=== PATIENT | female | born 1965 | race Caucasian/White ===

== ENCOUNTER 2023-11-29 21:49 | Emergency (ER) | payer OTHER ==
--- OUTSIDE RECORDS SUMMARY | 2023-11-29 21:57 | XMS REPORT | Continuity of Care Document ---
Author Name Unknown Address [address] [place] [address] [facility] Address [address] [place] [address] Care Team Providers Care Natural Science Manager Name Role Phone PCP, PATIENT DOES NOT HAVE A Primary Care Physic kael Unavailable MIKAYLA FLOREZ Attending Clinician Unavailable Cristian Laguna Attending Clinician Unavailable DARBY BROTHERS Attending Clinician UnavailDARBY Buckley Attending Clinician UnavailCLARIBEL Oliveira Attending Clinician Unavailable CLARIBEL BLACK Attending Clinician Unavailable MARTHA DANGLEO Attending Clinician Unavailable Doctor Unassigned, [place] Attending Clinician SAMUEL Merlos Attending Clinician Unavailable Madeline Simons MD Attending Clinician [phone] MADELINE SIMONS Attending Clinician Unavailable Nurse, [facility] Attending Clinician Un available Unknown, Attending Attending Clinician UnavailYuniel Huerta OD Attending Clinician [phone] UNKNOWN, ATTENDING Attending Clinician Unavailab Devorah Chunie Attending Clinician [phone] Darby Brothers MD Attending Clinician [phone] Lab, Ang - Db Attending Clinician Unavailable LUDMILA BEVERLY Attending Clinician Unavailab rosa Beverly VICE PRESIDENT RISK MANAGEMENT, Ludmila Sow Attending Clinician [phone] Ebrahim VICE PRESIDENT RISK MANAGEMENT, Rania Attending Clinician [phone] JOSE GLEASON Attending Clinician Unavailable Jose Gleason MD Attending Clinician [phone] Pako VICE PRESIDENT RISK MANAGEMENT, See Attending Clinician [phone] SEE MIN Attending Clinician Unavailable YUNIEL CALDERON Attending Clinician UnavailParker Graves Attending Clinician Unavailable EDDOC, GENERIC FOR ED Attending Clinician Unava ilable CARLOS GOMES Attending Clinician Unavailable Rosey MAZA, Carlos Attending Clinician [phone] BOB MIN Attending Clinician Unavailable Mikayla Florez MD Attending Clinician [phone] BACILIO BENTLEY Attending Clinician Unavail able Caitlin Cuevas RN Attending Clinician Unavail able YUNIEL THURMAN Attending Clinician Unavail able Armando Attending Clinician Unavaila NEO Bosch Attending Clinician Unavailrodríguez Pitt RN, Pia Terrazas Attending Clinician Unavailable Jenaro Padilla MD Attending Clinician [phone] Breana Calhoun RN Attending Clinician Unava ilable LUIS COLON Attending Clinician Unavailable Jase Wayne Attending Clinician [phone] Bud CAMPOS, Neo Hwang Attending Clinician Unavail able JOSE SANCHEZ Attending Clinician Unavailable JOSE SANCHEZ Attending Clinician Unavailable Rc Peng DO Attending Clinician [phone] Calvin Nova MD Attending Clinician [phone] Edwin Mathews Attending Clinician Unavailable Porfirio Attending Clinician Unavailable Jovana Weber Attending Clinician Unavailable AISHA CHÁVEZ Attending Clinician Unavailable Jayden Knight MD Attending Clinician [phone] Aisha Chávez MD A Attending Clinician [phone] FRANCISCO GAMING Attending Clinician Unavailable JOSE BACK Attending Clinician Unavailable Francisco Gaming PA-C Attending Clinician [phone] [facility] Attending Clinician [phone] Vtc-Lab Attending Clinician Unavailable Abdelrahman Madden MD Attending Clinician Unavail able Marianne MAZA, Samuel King Attending Clinician [phone] SAMUEL GUZMÁN Attending Clinician Unavaila ble Only, Lcc Test Attending Clinician Unavailable Navdeep MAZA, Jose Attending Clinician [phone] Guerrero MAZA, Ambika Attending Clinician [phone] Julianna MAZA, Giovanni Osullivan Attending Clinician [phone] Yareli Haynes RN Attending Clinician Unavailable GINI WILLARD Attending Clinician Unavailable GLENNY ARREOLA Attending Clinician Unavail able MIKAYLA FLOREZ Admitting Clinician Unavailable Jovana Weber Admitting Clinician Unavailable Armando Admitting Clinician Unavaila CARLOS Moura Admitting Clinician Unavailable Rosey MAZA, Carlos Admitting Clinician [phone] CALVIN NOVA Admitting Clinician Unavailable Porfirio Admitting Clinician Unavailable JAYDEN KNIGHT Admitting Clinician Unavailable Payers Payer Name Policy Type Policy Number Effective Date Expirati on Date Source HIM BCBS BLUE ADVANTAGE O [id number] 2023 00:00:00 [facility] EPO [id number] 2023 00:00:00 [place] [id number] 2023 00:00:[place] [id number] 2022 00:00:00 2024 00:00:00 CIG[employer] - [place] (EPO) [id number] 2022 00:00:00 2023 00:00:00 [place] [id number] AETNA [id number] 2021 00:00:00 AETNA - CHOICE (POS II) [id number] 2021 00:00:00 Problems Condition Name Condition Details Condition Category Status Onset Date Resolution Date Last Treatment Date Treating Clinician Comments Source Costochond ritis, acute Costochond ritis, acute Disease Active 6- 00:00: 00 [facility] Chronic right shoulder pain Chronic right shoulder pain Disease Active 09-09 00:00: 00 [facility] Raccoon bite, subsequent encounter Raccoon bite, subsequent encounter Disease Active 09-09 00:00: 00 [facility] Encounter for repeat administra tion of rabies vaccinatio n Encounter for repeat administra tion of rabies vaccinatio n Disease Active 6 00:00: 00 [facility] Flank pain Flank pain Disease Active 4-03 00:00: 00 [facility] Acute abdominal pain Acute abdominal pain Disease Active -17 00:00: 00 [facility] HLD (hyperlipi demia) HLD (hyperlipi demia) Disease Active -17 00:00: 00 [facility] Anxiety Anxiety Disease Active 3-17 00:00: 00 [facility] Pyelonephr itis Pyelonephr itis Disease Active 17 00:00: 00 [facility] GERD (gastroeso phageal reflux disease) GERD (gastroeso phageal reflux disease) Disease Active -17 00:00: 00 [facility] KRISTOPHER (acute kidney injury) KRISTOPHER (acute kidney injury) Disease Active -17 00:00: 00 [facility] Nephrolith iasis Nephrolith iasis Disease Active 3-17 00:00: 00 [facility] Type 2 diabetes mellitus Type 2 diabetes mellitus Disease Active 3-17 00:00: 00 [facility] HTN (hypertens ion) HTN (hypertens ion) Disease Active 05-31 00:00: 00 [facility] Leukocytos is Leukocytos is Disease Active 05-31 00:00: 00 [facility] Right ureteral stone Right ureteral stone Disease Active 05-31 00:00: 00 [facility] KRISTOPHER (acute kidney injury) KRISTOPHER (acute kidney injury) Disease Active 05-31 00:00: 00 [facility] History of alcoholism History of Alcoholism Problem Active 05-03 00:00: 00 [facility] Mehta's esophagus Mehta's Esophagus Problem Active 2022-03 00:00: 00 [facility] History of malignant neoplasm of colon History of Malignant Neoplasm of Colon Problem Active 2022-03 00:00: 00 [facility] Tobacco user Tobacco User Problem Active 2022-03 00:00: 00 [facility] Multiple joint pain Multiple Joint Pain Problem Active 04-25 00:00: 00 [facility] Diabetes mellitus Diabetes Mellitus Problem Active 03-22 00:00: 00 [facility] Hyperlipid emia Hyperlipid emia Problem Active 03-22 00:00: 00 [facility] Anxiety Anxiety Problem Active 03-22 00:00: 00 [facility] Essential hypertensi on Essential Hypertensi on Problem Active 03-22 00:00: 00 [facility] Dysphagia, pharyngoes ophageal phase Dysphagia, pharyngoes ophageal phase Disease Active 12-04 00:00: 00 Overview: Formattin g of this note might be different from the original. Added automatic ally from request for surgery [id number] [facility] Globus sensation Globus sensation Disease Active 12-04 00:00: 00 Overview: Formattin g of this note might be different from the original. Added automatic ally from request for surgery [id number] [facility] Thrush Thrush Disease Active 12-04 00:00: 00 Overview: Formattin g of this note might be different from the original. Added automatic ally from request for surgery [id number] [facility] Rectal cancer Rectal cancer Disease Active 06-13 00:00: 00 Overview: Formattin g of this note might be different from the original. Added automatic ally from request for surgery [id number] [facility] History of colon cancer History of colon cancer Disease Active 06-13 00:00: 00 Overview: Formattin g of this note might be different from the original. Added automatic ally from request for surgery [id number] [facility] Trigger middle finger of left hand Trigger middle finger of left hand Disease Active 305 00:00: 00 [facility] GERD with esophagiti s GERD with esophagiti s Disease Recurre nce 103 00:00: 00 [facility] Tobacco dependence Tobacco dependence Disease Recurre nce 406 00:00: 00 [facility] Vomiting Vomiting Disease Active 04-29 00:00: 00 [facility] Elevated LFTs Elevated LFTs Disease Active 09-12 00:00: 00 [facility] Fatigue Fatigue Disease Active 09-12 00:00: 00 [facility] SBO (small bowel obstructio n) SBO (small bowel obstructio n) Disease Active 09-12 00:00: 00 [facility] Anemia Anemia Disease Active 09-12 00:00: 00 [facility] Nasal congestion Nasal congestion Disease Active 09-12 00:00: 00 [facility] Colon cancer Colon cancer Disease Recurre nce 09-12 00:00: 00 [facility] Preseptal cellulitis of right lower eyelid Preseptal cellulitis of right lower eyelid Disease Resolve d 2017-03 117 00:00: 00 2023-06-19 00:00:00 2023-06-19 14:56:12 [facility] COPD (chronic obstructiv e pulmonary disease) COPD (chronic obstructiv e pulmonary disease) Disease Resolve d 2 00:00: 00 2018-01-06 00:00:00 2018-01-06 14:34:23 [facility] Allergies, Adverse Reactions, Alerts Allergy Name Allergy Type Status Severity Reaction(s) Onset Date Inactive Date Treating Clinician Comments Source hydrocod one bit DA Active WI ITCHING, RASH 08-04 00:00: 00 [facility] Sulfa (Sulfona mide Antibiot ics) DA Active WI CHILDHOOD REACTION 08-04 00:00: 00 [facility] SULFA (SULFONA MIDE ANTIBIOT ICS) Drug Class Active N/V 05-13 00:00: 00 [facility] HYDROCOD ONE-ACET AMINOPHE N DRUG Active Med ITCHING 05-13 00:00: 00 [facility] Sulfa (Sulfona mide Antibiot ics) Propensi ty to adverse reaction s Active Nausea and/or Vomiting 05-13 00:00: 00 [facility] Sulfa (Sulfona mide Antibiot ics) Propensi ty to adverse reaction s Active Nausea and/or Vomiting 05-13 00:00: 00 [facility] Hydrocod one-Acet aminophe n Propensi ty to adverse reaction s Active Itching 05-13 00:00: 00 [facility] Hydrocod one-Acet aminophe n Drug Allergy Active Rash 05-13 00:00: 00 [facility] Sulfa (Sulfona mide Antibiot ics) DA Active WI CHILDHOOD REACTION 11-07 00:00: 00 [facility] hydrocod one bit DA Active WI ITCHING, RASH 11-07 00:00: 00 [facility] VICODIN Allergy to substanc e Active Mild to moderate [facility] SULFA (SULFONA MIDE ANTIBIOT ICS) Allergy to substanc e Active [facility] Family History Family Member Diagnosis Comments Start Date Stop Date Sourc e Natural [facility] St[facility] Maternal grandfather Cancer [facility] Natural [facility] Hy[facility] Natural sister Uterine Cancer [facility] Social History Social Habit Start Date Stop Date Quantity Comments Source [facility] History of tobacco use Cigarette Smoker [facility] Alcoholic beverage intake 2023-09-09 00:00:00 2023-09-09 00:00:00 Current non-drinker of alcohol (finding) [facility] Cigarettes smoked current (pack per day) - Reported 2023-09-05 00:00:00 2023-09-05 00:00:00 [facility] Cigarette pack-years 2023-09-05 00:00:00 2023-09-05 00:00:00 [facility] Tobacco use and exposure 2023-09-05 00:00:00 2023-09-05 00:00:00 Smokeless tobacco non-user [facility] History of Social function 2023-06-12 00:00:00 2023-06-12 00:00:00 [facility] Alcohol intake 2023-06-03 00:00:00 2023-06-03 00:00:00 Current non-drinker of alcohol (finding) [facility] Exposure to SARS-CoV-2 (event) 2021-09-16 00:00:00 2021-09-26 22:48:00 Not sure [facility] Sex assigned at 1965 00:00:00 1965 00:00:00 [facility] Smoking Status Start Date Stop Date Source Heavy Tobacco Smoker [facility] Smokes tobacco daily 2023-09-05 00:00:00 [facility] Medications Ordered Medication Name Filled Medication Name Start Date Stop Date Current Medication? Ordering Clinician Indication Dosage Frequency Signature (SIG) Comments Components Source triamcinolo ne acetonide (KENALOG) injection 16 mg 09-10 14:45: 00 09-10 13:52 :00 No [id number] 16mg 16 mg, Intramuscu lar, ONCE, 1 dose, On Nalini 09/11/23 at 0945, Routine [facility] meloxicam 15 mg tablet 09-09 00:00: 00 Yes [id number] 15mg Take 1 tablet by mouth in the morning. [facility] Blood-Gluco se Meter (GLUCOCARD SHINE METER) [facility] 09-09 00:00: 00 Yes [id number] 00 Use as directed [facility] lancets (TECHLITE LANCETS) 28 gauge [facility] 09-09 00:00: 00 Yes [id number] 00 Check FASTING BLOOD SUGAR DAILY [facility] blood sugar diagnostic (GLUCOCARD SHINE TEST STRIPS) strip 09-09 00:00: 00 Yes [id number] 00 Check fasting BLOOD SUGAR DAILY [facility] levothyroxi ne 75 mcg tablet 09-09 00:00: 00 Yes [id number] 75ug Take 1 tablet by mouth every morning. [facility] mupirocin 2 % ointment 09-04 00:00: 00 Yes [id number] Apply to area(s) 3 (three) times daily. [facility] rabies immune globulin (PF) (HYPERRAB (PF)) injection 1,044 Units 09-02 01:30: 00 09-02 01:21 :00 No 20U/kg 1,044 Units (20 Units/kg ?52.2 kg), Intramuscu lar, ONCE, 1 dose, On Fri09/02/23 at 2030, Routine [facility] ketorolac 10 mg tablet 09-01 00:00: 00 Yes [id number] 10mg Take 1 tablet by mouth every 6 (six) hours as needed for Pain (scale 4-6) or Pain (scale 7-10). [facility] amoxicillin -clavulanat e 875-125 mg per tablet 09-01 00:00: 00 09-12 04:59 :00 Yes [id number] 1{tbl} Take 1 tablet by mouth every 12 (twelve) hours for 10 days. [facility] mupirocin 2 % cream 09-01 00:00: 00 09-04 00:00 :00 No [id number] Apply to area(s) 3 (three) times daily. [facility] traMADoL 50 mg tablet 6-10 00:00: 00 08-27 04:59 :00 No [id number] 50mg Take 1 tablet by mouth every 8 (eight) hours as needed for Pain (scale 4-6) for up to 2 days. Indication s: acute pain [facility] simethicone 80 mg chewable tablet 06-18 10:24: 48 Yes Take 80 mg as needed by oral route. [facility] ondansetron 4 mg disintegrat ing tablet 06-18 10:24: 48 Yes ondansetro n 4 mg disintegra ting tablet [facility] calcium carbonate (CALCIUM 500 ORAL) 06-18 10:19: 58 Yes Take by mouth. [facility] gabapentin 300 mg capsule 06-16 00:00: 00 07-29 04:59 :00 No [id number] 300mg Take 1 capsule by mouth in the morning and 1 capsule at noon and 1 capsule in the evening. Do all this for 42 days. [facility] lactated ringers IV infusion 1,000 mL 06-11 23:15: 00 Yes 1000mL at 75 mL/hr, 1,000 mL, IV Infusion, CONTINUOUS , Starting on Nalini 06/12/23 at 1815, Until Discontinu ed, Routine, PACU [facility] morpHINE (2 mg/mL) injection 2 mg 06-11 23:06: 39 Yes 2mg 2 mg, Slow IV Push, Q5MIN PRN, 3 doses, Starting on Nalini 06/12/23 at 1806, Until Discontinu ed, Routine, Pain (scale 4-6), PACU [facility] morpHINE (4 mg/mL) injection 4 mg 06-11 23:06: 39 Yes 4mg 4 mg, Slow IV Push, [id number], 3 doses, Starting on Nalini 06/12/23 at 1806, Until Discontinu ed, Routine, Pain (scale 7-10), PACU [facility] hydralAZINE (APRESOLINE ) injection 10 mg 06-11 23:06: 39 Yes 10mg 10 mg, Slow IV Push, Q20MIN PRN, 2 doses, Starting on Nalini 06/12/23 at 1806, Until Discontinu ed, Routine, Other, SBP > 170mmHg or DBP > 90mmHg, PACU [facility] labetaloL (NORMODYNE) injection 10 mg 06-11 23:06: 39 Yes 10mg 10 mg, Slow IV Push, Q15MIN PRN, 2 doses, Starting on Nalini 06/12/23 at 1806, Until Discontinu ed, Routine, SBP greater than 170mmHg or DBP greater than 90mmHg., PACU [facility] FENTanyl PF (SUBLIMAZE (PF)) injection 50 mcg 06-11 23:06: 39 Yes 50ug 50 mcg, Slow IV Push, Q5MIN PRN, 4 doses, Starting on Nalini 06/12/23 at 1806, Until Discontinu ed, Routine, Pain (scale 7-10), PACU [facility] FENTanyl PF (SUBLIMAZE (PF)) injection 25 mcg 06-11 23:06: 39 Yes 25ug 25 mcg, Slow IV Push, Q5MIN PRN, 4 doses, Starting on Nalini 06/12/23 at 1806, Until Discontinu ed, Routine, Pain (scale 4-6), PACU [facility] proMETHazin e (PHENERGAN) 6.25 mg in NaCl 0.9% (NS) 50 mL piggyback 06-11 23:06: 39 Yes 6.25mg 6.25 mg, IV Piggyback, at 200 mL/hr Administer over 15 Minutes, Q15MIN PRN, 4 doses, Starting on Nalini 06/12/23 at 1806, Until Discontinu ed, Routine, Nausea and Vomiting (N/V), If unresponsi ve to first choice antiemetic , PACU [facility] ondansetron (ZOFRAN (PF)) injection 4 mg 06-11 23:06: 39 Yes 4mg 4 mg, Slow IV Push, PRN, 1 dose, Starting on Nalini 06/12/23 at 1806, Until Discontinu ed, Routine, Nausea and Vomiting (N/V), PACU [facility] sodium chloride 0.9 % irrigation solution 06-11 22:48: 00 06-11 23:14 :06 No PRN, Starting on Nalini 06/12/23 at 1748, Until Nalini 06/12/23 at 1814, Intra-op [facility] iohexoL (OMNIPAQUE 300-50 mL)) injection 06-11 21:58: 00 06-11 23:14 :06 No PRN, Starting on Nalini 06/12/23 at 1658, Until Nalini 06/12/23 at 1814, Routine, Intra-op [facility] morpHINE (4 mg/mL) injection 2 mg 06-11 18:46: 12 06-11 23:14 :06 No 2mg 2 mg, Slow IV Push, Q15MIN PRN, 2 doses, Starting on Nalini 06/12/23 at 1346, Until Nalini 06/12/23 at 1814, Routine, Pain (scale 4-6), DSU Pre-op [facility] ketorolac (TORADOL) injection 30 mg 06-11 18:45: 00 06-11 19:08 :00 No 30mg 30 mg, Slow IV Push, ONCE, 1 dose, On Nalini 06/12/23 at 1400, Routine, DSU Pre-op [facility] lactated ringers IV infusion 1,000 mL 06-11 18:15: 00 06-11 18:33 :00 No 1000mL at 42 mL/hr, 1,000 mL, IV Infusion, ONCE, 1 dose, On Nalini 06/12/23 at 1315, Routine, DSU Pre-op [facility] tamsulosin (FLOMAX) 0.4 mg 24 hr capsule 06-11 00:00: 00 Yes [id number] .4mg Take 1 capsule by mouth in the morning. [facility] oxyBUTYnin chloride 5 mg tablet 06-11 00:00: 00 Yes [id number] 5mg Take 1 tablet by mouth in the morning and 1 tablet in the evening. [facility] cephALEXin 250 mg capsule 06-11 00:00: 00 06-17 04:59 :00 No [id number] 500mg Take 2 capsules by mouth every 12 (twelve) hours for 5 days. [facility] ketorolac (TORADOL) injection 15 mg 06-04 03:00: 00 06-04 03:06 :00 No 15mg 15 mg, Slow IV Push, ONCE, 1 dose, On Fri06/04/23 at 2200, JHOANA [facility] ondansetron (ZOFRAN (PF)) injection 4 mg 06-04 03:00: 00 06-04 03:05 :00 No 4mg 4 mg, Slow IV Push, ONCE, 1 dose, On Fri06/04/23 at 2200, JHOANA [facility] morpHINE (2 mg/mL) injection 2 mg 06-04 03:00: 00 06-04 03:07 :00 No 2mg 2 mg, Slow IV Push, ONCE, 1 dose, On Fri06/04/23 at 2200, STAT [facility] ibuprofen 800 mg tablet 06-03 00:00: 00 Yes [id number] 800mg Take 1 tablet by mouth every 6 (six) hours as needed for Pain (scale 4-6) for up to 30 doses. [facility] fluconazole 200 mg tablet 06-03 00:00: 00 06-18 00:00 :00 No [id number] 400mg Take 2 tablets by mouth in the morning. [facility] ciprofloxac in HCl 500 mg tablet 06-03 00:00: 00 06-11 00:00 :00 No [id number] 500mg Take 1 tablet by mouth in the morning and 1 tablet in the evening. [facility] methocarbam oL 500 mg tablet 06-02 00:00: 00 Yes [id number] 500mg Take 1 tablet by mouth 4 (four) times daily. [facility] tamsulosin 0.4 mg 24 hr capsule 06-02 00:00: 00 06-11 00:00 :00 No [id number] .4mg Take 1 capsule by mouth at bedtime. [facility] fluconazole (DIFLUCAN) tablet 400 mg 06-01 22:15: 00 06-08 13:59 :00 No 400mg 400 mg, Oral, DAILY, 7 doses, First dose on Fri06/02/23 at 1715, Last dose on Fri06/08/23 at 0900, JHOANA
Re ason for Anti-Infec tive: Documented Infection< br>Documen harvey Infection Site: Urine
D uration of Therapy: 7 days [facility] lactated ringers IV infusion 1,000 mL 06-01 18:30: 00 Yes 1000mL at 75 mL/hr, 1,000 mL, IV Infusion, CONTINUOUS , Starting on Fri06/02/23 at 1330, Until Discontinu ed, Routine, PACU [facility] lidocaine (XYLOCAINE) 2 % jelly URO-JET 06-01 17:56: 00 06-01 18:25 :04 No PRN, Starting on Fri06/02/23 at 1256, Until Fri06/02/23 at 1325, Routine, Intra-op [facility] sodium chloride 0.9 % irrigation solution 06-01 17:50: 00 Yes PRN, Starting on Fri06/02/23 at 1250, Until Discontinu ed, Intra-op [facility] iopamidol (ISOVUE 370-500 mL) injection 06-01 17:50: 00 06-01 18:25 :04 No PRN, Starting on Fri06/02/23 at 1250, Until Fri06/02/23 at 1325, Routine, Intra-op [facility] pantoprazol e (PROTONIX) EC tablet 40 mg 06-01 14:00: 00 Yes 40mg 40 mg, Oral, DAILY, First dose on Fri06/02/23 at 0900, Until Discontinu ed, Routine [facility] cyclobenzap rine (FLEXERIL) tablet 10 mg 06-01 08:00: 00 06-01 07:07 :00 No 10mg 10 mg, Oral, ONCE, 1 dose, On Fri06/02/23 at 0300, Routine [facility] nicotine (NICODERM) 14 mg/24 hr patch 1 Patch 06-01 04:15: 00 Yes 1{patch } 1 Patch, Topical, Administer over 24 Hours, Q24H, First dose on Fri06/01/23 at 2315, Until Discontinu ed, Routine [facility] tamsulosin (FLOMAX) capsule 0.4 mg 06-01 02:00: 00 Yes .4mg 0.4 mg, Oral, QHS, First dose on Fri06/01/23 at 2100, Until Discontinu ed, Routine [facility] atorvastati n (LIPITOR) tablet 10 mg 06-01 02:00: 00 Yes 10mg 10 mg, Oral, QHS, First dose on Fri06/01/23 at 2100, Until Discontinu ed, [facility] (ROBAXIN) tablet 500 mg 06-01 01:00: 00 Yes 500mg 500 mg, Oral, QID, First dose on Fri06/01/23 at 2000, Until Discontinu ed, [facility] buPROPion SR (WELLBUTRIN SR) tablet 150 mg 06-01 01:00: 00 Yes 150mg 150 mg, Oral, BID, First dose on Fri06/01/23 at 2000, Until Discontinu ed, Routine [facility] ([facility]OL[facility] tablet 650 mg 05-31 23:00: 00 Yes 650mg 650 mg, Oral, Q6H, First dose (after last modificati on) on Fri06/01/23 at 1800, Until Discontinu ed, Routine [facility] lactated ringers [facility] 1,000 mL 05-31 22:15: 00 06-01 21:59 :00 No 1000mL at 150 mL/hr, 1,000 mL, IV Infusion, CONTINUOUS , Starting on Fri06/01/23 at 1715, Until 06/02/23 at 1659, Routine [facility] Sliding Scale Insulin - Lispro (HumaLOG) 05-31 22:00: 00 Yes Subcutaneo us, TID MEALS+HS, First dose on Fri06/01/23 at 1700, Until Discontinu ed, Routine [facility] enoxaparin (LOVENOX) injection 40 mg 05-31 22:00: 00 Yes 40mg 40 mg, Subcutaneo us, DAILY, First dose on Fri06/01/23 at 1700, Until Discontinu ed, Routine [facility] morpHINE (4 mg/mL) injection 4 mg 05-31 21:48: 25 Yes 4mg 4 mg, Slow IV Push, Q4HPRN, Starting on Fri06/01/23 at 1648, Until Discontinu ed, Routine, Pain (scale 7-10) [facility] glucagon (GLUCAGEN DIAGNOSTIC KIT) injection 1 mg 05-31 21:46: 43 Yes 1mg 1 mg, Intramuscu lar, PRN, Starting on Fri06/01/23 at 1646, Until Discontinu ed, JHOANA, Blood Glucose < or = 70 mg/dL and patient is NPO, unable to swallow or has mental changes. [facility] dextrose 50 % in water (D50W) injection 25 mL 05-31 21:46: 43 Yes 25mL 25 mL, Slow IV Push, PRN, Starting on Fri06/01/23 at 1646, Until Discontinu ed, JHOANA, Blood Glucose < or = 70 mg/dL and patient is NPO, unable to swallow or has mental status changes. [facility] guaiFENesin (FENESIN IR) tablet 200 mg 05-31 21:46: 20 Yes 200mg 200 mg, Oral, Q4HPRN, Starting on Fri06/01/23 at 1646, Until Discontinu ed, Routine, Cough [facility] ondansetron (ZOFRAN (PF)) injection 4 mg 05-31 21:46: 20 Yes 4mg 4 mg, Slow IV Push, Q6HPRN, Starting on Fri06/01/23 at 1646, Until Discontinu ed, Routine, Nausea and Vomiting (N/V) [facility] sennosides- docusate sodium (SENOKOT-S) 8.6-50 mg per tablet 1 tablet 05-31 21:46: 20 Yes 1{tbl} 1 tablet, Oral, QDAILYPRN, Starting on Fri06/01/23 at 1646, Until Discontinu ed, Routine, Constipati on [facility] HYDROcodone -acetaminop hen (NORCO 5) 5-325 mg tablet 1 tablet 05-31 21:46: 20 06-02 21:45 :20 No 1{tbl} 1 tablet, Oral, Q6HPRN, Starting on Fri06/01/23 at 1646, Until Fri06/03/23 at 1645, Routine, Pain (scale 4-6) [facility] gabapentin (NEURONTIN) capsule 300 mg 05-31 21:45: 53 Yes 300mg 300 mg, Oral, QHSPRN, Starting on Fri06/01/23 at 1645, Until Discontinu ed, Routine, neuropathi c pain [facility] cefTRIAXone (ROCEPHIN) 1,000 mg in NaCl 0.9% (NS) 100 mL MINI-BAG 05-31 18:30: 00 05-31 19:08 :00 No 1000mg 1,000 mg, IV Piggyback, ONCE, 1 dose, On Fri06/01/23 at 1330, Administer over 30 Minutes, 100 mL
Reas on for Anti-Infec tive: Documented Infection< br>Documen harvey Infection Site: Urine
D uration of Therapy: Once (ED) [facility] ketorolac (TORADOL) injection 15 mg 05-31 17:30: 00 05-31 16:34 :00 No 15mg 15 mg, Slow IV Push, ONCE, 1 dose, On Fri06/01/23 at 1230, JHOANA [facility] NaCl 0.9% (NS) bolus infusion 1,000 mL 05-31 17:15: 00 05-31 19:08 :00 No 1000mL at 999 mL/hr, 1,000 mL, IV Infusion, ONCE, 1 dose, On Fri06/01/23 at 1215, JHOANA [facility] ondansetron (ZOFRAN (PF)) injection 4 mg 05-31 16:30: 00 05-31 16:34 :00 No 4mg 4 mg, Slow IV Push, ONCE, 1 dose, On Fri06/01/23 at 1130, JHOANA [facility] HYDROcodone -acetaminop hen 5-325 mg tablet 3-15 00:00: 00 Yes [facility] ketorolac 10 mg tablet 3-12 00:00: 00 Yes [facility] traMADoL 50 mg tablet 2-16 00:00: 00 Yes 1 po twice daily for severe pain. [facility] atorvastati n 40 mg tablet 2022-03 00:00: 00 Yes 40mg Take 1 tablet by mouth at bedtime. [facility] cephALEXin (KEFLEX) capsule 500 mg 09-27 13:00: 00 Yes 500mg 500 mg, Oral, QID, First dose on Fri09/27/21 at 0800, Until Discontinu ed, JHOANA
Re ason for Anti-Infec tive: Documented Infection< br>Documen harvey Infection Site: Urine
D uration of Therapy: Other (see Comments) [facility] iopamidol (ISOVUE 370-500 mL) injection 100 mL 09-27 07:15: 00 09-27 05:57 :00 No [id number] 100mL 100 mL, Intravenou s, ONCE, 1 dose, On Fri09/27/21 at 0215, Routine [facility] NaCl 0.9% (NS) bolus infusion 1,000 mL 09-27 06:45: 00 09-27 14:48 :00 No 1000mL at 999 mL/hr, 1,000 mL, IV Infusion, ONCE, 1 dose, On Fri09/27/21 at 0145, [facility] ondansetron (ZOFRAN (PF)) injection 4 mg 09-27 06:45: 00 09-27 06:21 :00 No 4mg 4 mg, Slow IV Push, ONCE, 1 dose, On Fri09/27/21 at 0145, [facility] ketorolac (TORADOL) injection 15 mg 09-27 05:45: 00 09-27 06:21 :00 No 15mg 15 mg, Slow IV Push, ONCE, 1 dose, On Fri09/27/21 at 0045, [facility] cefTRIAXone (ROCEPHIN) 1,000 mg in NaCl 0.9% (NS) 50 mL MINI-BAG 09-27 05:30: 00 09-27 08:24 :00 No 1000mg 1,000 mg, IV Piggyback, ONCE, 1 dose, On Nalini 09/27/21 at 0030, Administer over 30 Minutes, 50 mL
Reas on for Anti-Infec tive: Documented Infection< br>Documen harvey Infection Site: Urine
D uration of Therapy: Other (see Comments) [facility] diazePAM (VALIUM) tablet 5 mg 09-27 04:15: 00 09-27 04:46 :00 No 5mg 5 mg, Oral, ONCE, 1 dose, On Fri09/26/21 at 2315, [facility] glipiZIDE 10 mg tablet 09-27 00:00: 00 Yes [id number] 10mg Take 1 tablet by mouth in the morning. [facility] cefdinir 300 mg capsule 09-27 00:00: 00 06-11 00:00 :00 No [id number] 300mg Take 1 capsule by mouth in the morning and 1 capsule in the evening. [facility] atorvastati n 10 mg tablet 08-07 00:00: 00 06-18 00:00 :00 No [id number] 10mg Take 1 tablet by mouth at bedtime. [facility] atorvastati n 10 mg tablet 2020-03 00:00: 00 Yes [id number] 10mg Take 1 tablet by mouth at bedtime. [facility] gabapentin 300 mg capsule 2020-03 00:00: 00 06-11 00:00 :00 No [id number] 300mg Take 1 capsule by mouth at bedtime as needed. [facility] glipiZIDE XL 5 mg 24 hr tablet 2020-03 00:00: 00 06-18 00:00 :00 No [id number] 5mg Take 1 tablet by mouth daily with breakfast. [facility] BUPROPION SR 150 mg SR tablet 12-11 00:00: 00 06-11 00:00 :00 No [id number] TAKE 1 TABLET BY MOUTH TWICE A DAY [facility] pantoprazol e 40 mg EC tablet 12-06 00:00: 00 06-11 00:00 :00 No [id number] 40mg Take 1 tablet by mouth daily. [facility] metFORMIN 1,000 mg tablet 12-04 00:00: 00 Yes [id number] 1000mg Take 1 tablet by mouth 2 (two) times daily with meals. [facility] lisinopriL 5 mg tablet 11-29 00:00: 00 Yes [id number] 5mg Take 1 tablet by mouth daily. [facility] blood sugar diagnostic (ONETOUCH ULTRA TEST) strip 11-23 00:00: 00 Yes Use to test glucose once a day E11.9 [facility] lancets (ONETOUCH DELICA LANCETS) 30 gauge Misc 11-23 00:00: 00 Yes Use to test glucose once a day E11.9 [facility] blood sugar diagnostic (ONETOUCH ULTRA TEST) strip 11-23 00:00: 00 Yes Use to test glucose once a day E11.9 [facility] albuterol 90 mcg/actuati on inhaler 11-16 00:00: 00 06-11 00:00 :00 No [id number] 2{puff} Inhale 2 Puffs every 4 (four) hours as needed for Wheezing or Shortness of Breath. [facility] acetaminoph en (TYLENOL EXTRA STRENGTH) 500 mg tablet 11-16 00:00: 00 06-11 00:00 :00 No [id number] 500mg Take 1 tablet by mouth every 6 (six) hours as needed for Pain for up to 20 doses. [facility] amlodipine 5 mg tablet Take by oral route for 90 days. amlodipine 5 mg tablet Take by oral route for 90 days. No amlodipine 5 mg tablet Take by oral route for 90 days. [facility] aspirin 81 mg chewable tablet Chew 1 tablet every day by oral route. aspirin 81 mg chewable tablet Chew 1 tablet every day by oral route. No 1 Q1D aspirin 81 mg chewable tablet Chew 1 tablet every day by oral route. [facility] Calcium 600 + D(3) 600 mg-10 mcg (400 unit) tablet Take 1 tablet every day by oral route. Calcium 600 + D(3) 600 mg-10 mcg (400 unit) tablet Take 1 tablet every day by oral route. No 1 Q1D Calcium 600 + D(3) 600 mg-10 mcg (400 unit) tablet Take 1 tablet every day by oral route. [facility] gabapentin 300 mg capsule Take 1 capsule every day by oral route for 90 days. gabapentin 300 mg capsule Take 1 capsule every day by oral route for 90 days. No 1capsul e(s) Q1D gabapentin 300 mg capsule Take 1 capsule every day by oral route for 90 days. [facility] glipizide ER 10 mg tablet, extended release 24 hr Take 1 tablet twice a day by oral route for 90 days. glipizide ER 10 mg tablet, extended release 24 hr Take 1 tablet twice a day by oral route for 90 days. No 1 BID glipizide ER 10 mg tablet, extended release 24 hr Take 1 tablet twice a day by oral route for 90 days. [facility] glipizide ER 2.5 mg tablet, extended release 24 hr TAKE 1 TABLET BY MOUTH EVERY DAY glipizide ER 2.5 mg tablet, extended release 24 hr TAKE 1 TABLET BY MOUTH EVERY DAY No glipizide ER 2.5 mg tablet, extended release 24 hr TAKE 1 TABLET BY MOUTH EVERY DAY [facility] hydroxyzine HCl 50 mg tablet TAKE 1 TABLET BY MOUTH FOUR TIMES A DAY FOR 10 DAYS hydroxyzine HCl 50 mg tablet TAKE 1 TABLET BY MOUTH FOUR TIMES A DAY FOR 10 DAYS No hydroxyzin e HCl 50 mg tablet TAKE 1 TABLET BY MOUTH FOUR TIMES A DAY FOR 10 DAYS [facility] ibuprofen 200 mg capsule Take 3 capsules every 4 hours by oral route for 3 days. ibuprofen 200 mg capsule Take 3 capsules every 4 hours by oral route for 3 days. No 3capsul e(s) Q4H ibuprofen 200 mg capsule Take 3 capsules every 4 hours by oral route for 3 days. [facility] metformin ER 500 mg tablet,exte nded release 24 hr Take 2 tablets twice a day by oral route for 90 days. metformin ER 500 mg tablet,exte nded release 24 hr Take 2 tablets twice a day by oral route for 90 days. No 2 BID metformin ER 500 mg tablet,ext ended release 24 hr Take 2 tablets twice a day by oral route for 90 days. [facility] omeprazole 20 mg tablet,billy yed release Take 1 tablet every day by oral route. omeprazole 20 mg tablet,billy yed release Take 1 tablet every day by oral route. No 1 Q1D omeprazole 20 mg tablet,del ayed release Take 1 tablet every day by oral route. [facility] OneTouch Delica Lancets 30 gauge OneTouch Delica Lancets 30 gauge No OneTouch Delica Lancets 30 gauge [facility] OneTouch Ultra Test strips Use as directed. OneTouch Ultra Test strips Use as directed. No OneTouch Ultra Test strips Use as directed. [facility] tramadol 37.5 mg-acetamin ophen 325 mg tablet TAKE 1 TO 2 TABLETS BY MOUTH EVERY 4 TO 6 HOURS NEEDED FOR MODERATE PAIN tramadol 37.5 mg-acetamin ophen 325 mg tablet TAKE 1 TO 2 TABLETS BY MOUTH EVERY 4 TO 6 HOURS NEEDED FOR MODERATE PAIN No tramadol 37.5 mg-acetami nophen 325 mg tablet TAKE 1 TO 2 TABLETS BY MOUTH EVERY 4 TO 6 HOURS NEEDED FOR MODERATE PAIN [facility] amlodipine 5 mg tablet Take by oral route for 90 days. amlodipine 5 mg tablet Take by oral route for 90 days. No amlodipine 5 mg tablet Take by oral route for 90 days. [facility] aspirin 81 mg chewable tablet Chew 1 tablet every day by oral route. aspirin 81 mg chewable tablet Chew 1 tablet every day by oral route. No 1 Q1D aspirin 81 mg chewable tablet Chew 1 tablet every day by oral route. [facility] atorvastati n 40 mg tablet TAKE 1 TABLET BY MOUTH EVERYDAY AT BEDTIME atorvastati n 40 mg tablet TAKE 1 TABLET BY MOUTH EVERYDAY AT BEDTIME No atorvastat in 40 mg tablet TAKE 1 TABLET BY MOUTH EVERYDAY AT BEDTIME [facility] Calcium 600 + D(3) 600 mg-10 mcg (400 unit) tablet Take 1 tablet every day by oral route. Calcium 600 + D(3) 600 mg-10 mcg (400 unit) tablet Take 1 tablet every day by oral route. No 1 Q1D Calcium 600 + D(3) 600 mg-10 mcg (400 unit) tablet Take 1 tablet every day by oral route. [facility] Cipro 500 mg tablet Take 1 tablet every 12 hours by oral route for 7 days. Cipro 500 mg tablet Take 1 tablet every 12 hours by oral route for 7 days. No 1 Q12H Cipro 500 mg tablet Take 1 tablet every 12 hours by oral route for 7 days. [facility] glipizide 10 mg tablet TAKE 1 TABLET BY MOUTH EVERY DAY IN THE MORNING glipizide 10 mg tablet TAKE 1 TABLET BY MOUTH EVERY DAY IN THE MORNING No glipizide 10 mg tablet TAKE 1 TABLET BY MOUTH EVERY DAY IN THE MORNING [facility] glipizide ER 10 mg tablet, extended release 24 hr Take 1 tablet twice a day by oral route for 90 days. glipizide ER 10 mg tablet, extended release 24 hr Take 1 tablet twice a day by oral route for 90 days. No 1 BID glipizide ER 10 mg tablet, extended release 24 hr Take 1 tablet twice a day by oral route for 90 days. [facility] glipizide ER 2.5 mg tablet, extended release 24 hr TAKE 1 TABLET BY MOUTH EVERY DAY glipizide ER 2.5 mg tablet, extended release 24 hr TAKE 1 TABLET BY MOUTH EVERY DAY No glipizide ER 2.5 mg tablet, extended release 24 hr TAKE 1 TABLET BY MOUTH EVERY DAY [facility] hydroxyzine HCl 50 mg tablet TAKE 1 TABLET BY MOUTH FOUR TIMES A DAY FOR 10 DAYS hydroxyzine HCl 50 mg tablet TAKE 1 TABLET BY MOUTH FOUR TIMES A DAY FOR 10 DAYS No hydroxyzin e HCl 50 mg tablet TAKE 1 TABLET BY MOUTH FOUR TIMES A DAY FOR 10 DAYS [facility] lisinopril 5 mg tablet TAKE 1 TABLET BY MOUTH EVERY DAY lisinopril 5 mg tablet TAKE 1 TABLET BY MOUTH EVERY DAY No lisinopril 5 mg tablet TAKE 1 TABLET BY MOUTH EVERY DAY [facility] metformin ER 500 mg tablet,exte nded release 24 hr Take 2 tablets twice a day by oral route for 90 days. metformin ER 500 mg tablet,exte nded release 24 hr Take 2 tablets twice a day by oral route for 90 days. No 2 BID metformin ER 500 mg tablet,ext ended release 24 hr Take 2 tablets twice a day by oral route for 90 days. [facility] omeprazole 20 mg capsule,del ayed release omeprazole 20 mg capsule,del ayed release No omeprazole 20 mg capsule,de layed release [facility] omeprazole 20 mg tablet,billy yed release Take 1 tablet every day by oral route. omeprazole 20 mg tablet,billy yed release Take 1 tablet every day by oral route. No 1 Q1D omeprazole 20 mg tablet,del ayed release Take 1 tablet every day by oral route. [facility] ondansetron 4 mg disintegrat ing tablet ondansetron 4 mg disintegrat ing tablet No ondansetro n 4 mg disintegra ting tablet [facility] OneTouch Delica Lancets 30 gauge OneTouch Delica Lancets 30 gauge No OneTouch Delica Lancets 30 gauge [facility] OneTouch Ultra Test strips Use as directed. OneTouch Ultra Test strips Use as directed. No OneTouch Ultra Test strips Use as directed. [facility] tramadol 37.5 mg-acetamin ophen 325 mg tablet TAKE 1 TO 2 TABLETS BY MOUTH EVERY 4 TO 6 HOURS NEEDED FOR MODERATE PAIN tramadol 37.5 mg-acetamin ophen 325 mg tablet TAKE 1 TO 2 TABLETS BY MOUTH EVERY 4 TO 6 HOURS NEEDED FOR MODERATE PAIN No tramadol 37.5 mg-acetami nophen 325 mg tablet TAKE 1 TO 2 TABLETS BY MOUTH EVERY 4 TO 6 HOURS NEEDED FOR MODERATE PAIN [facility] aspirin 81 mg chewable tablet Chew 1 tablet every day by oral route. aspirin 81 mg chewable tablet Chew 1 tablet every day by oral route. No 1 Q1D aspirin 81 mg chewable tablet Chew 1 tablet every day by oral route. [facility] atorvastati n 40 mg tablet Take 1 tablet every day by oral route for 30 days. atorvastati n 40 mg tablet Take 1 tablet every day by oral route for 30 days. No 1 Q1D atorvastat in 40 mg tablet Take 1 tablet every day by oral route for 30 days. [facility] Bromfed DM 2 mg-30 mg-10 mg/5 mL oral syrup Take 10 mL twice a day by oral route for 7 days. Bromfed DM 2 mg-30 mg-10 mg/5 mL oral syrup Take 10 mL twice a day by oral route for 7 days. No 10mL BID Bromfed DM 2 mg-30 mg-10 mg/5 mL oral syrup Take 10 mL twice a day by oral route for 7 days. [facility] Calcium 600 + D(3) 600 mg-10 mcg (400 unit) tablet Take 1 tablet every day by oral route. Calcium 600 + D(3) 600 mg-10 mcg (400 unit) tablet Take 1 tablet every day by oral route. No 1 Q1D Calcium 600 + D(3) 600 mg-10 mcg (400 unit) tablet Take 1 tablet every day by oral route. [facility] cholecalcif dina (vitamin D3) 1,250 mcg (50,000 unit) capsule Take 1 capsule every week by oral route for 90 days. cholecalcif dina (vitamin D3) 1,250 mcg (50,000 unit) capsule Take 1 capsule every week by oral route for 90 days. No 1capsul e(s) Q1W cholecalci ferol (vitamin D3) 1,250 mcg (50,000 unit) capsule Take 1 capsule every week by oral route for 90 days. [facility] glipizide ER 10 mg tablet, extended release 24 hr Take 1 tablet every day by oral route for 30 days. glipizide ER 10 mg tablet, extended release 24 hr Take 1 tablet every day by oral route for 30 days. No 1 Q1D glipizide ER 10 mg tablet, extended release 24 hr Take 1 tablet every day by oral route for 30 days. [facility] levofloxaci n 750 mg tablet Take 1 tablet every day by oral route for 7 days. levofloxaci n 750 mg tablet Take 1 tablet every day by oral route for 7 days. No 1 Q1D levofloxac in 750 mg tablet Take 1 tablet every day by oral route for 7 days. [facility] lisinopril 5 mg tablet 1 tab by mouth daily lisinopril 5 mg tablet 1 tab by mouth daily No lisinopril 5 mg tablet 1 tab by mouth daily [facility] metformin 500 mg tablet Take 1 tablet twice a day by oral route for 30 days. metformin 500 mg tablet Take 1 tablet twice a day by oral route for 30 days. No 1 BID metformin 500 mg tablet Take 1 tablet twice a day by oral route for 30 days. [facility] tramadol 50 mg tablet Take 1 tablet twice a day by oral route for 30 days. tramadol 50 mg tablet Take 1 tablet twice a day by oral route for 30 days. No 1 BID tramadol 50 mg tablet Take 1 tablet twice a day by oral route for 30 days. [facility] albuterol sulfate HFA 90 mcg/actuati on aerosol inhaler Inhale 2 puffs every 4 hours by inhalation route. albuterol sulfate HFA 90 mcg/actuati on aerosol inhaler Inhale 2 puffs every 4 hours by inhalation route. No 2puff(s ) Q4H albuterol sulfate HFA 90 mcg/actuat ion aerosol inhaler Inhale 2 puffs every 4 hours by inhalation route. [facility] aspirin 81 mg chewable tablet Chew 1 tablet every day by oral route. aspirin 81 mg chewable tablet Chew 1 tablet every day by oral route. No 1 Q1D aspirin 81 mg chewable tablet Chew 1 tablet every day by oral route. [facility] atorvastati n 40 mg tablet Take 1 tablet every day by oral route for 30 days. atorvastati n 40 mg tablet Take 1 tablet every day by oral route for 30 days. No 1 Q1D atorvastat in 40 mg tablet Take 1 tablet every day by oral route for 30 days. [facility] Calcium 600 + D(3) 600 mg-10 mcg (400 unit) tablet Take 1 tablet every day by oral route. Calcium 600 + D(3) 600 mg-10 mcg (400 unit) tablet Take 1 tablet every day by oral route. No 1 Q1D Calcium 600 + D(3) 600 mg-10 mcg (400 unit) tablet Take 1 tablet every day by oral route. [facility] cholecalcif dina (vitamin D3) 1,250 mcg (50,000 unit) capsule Take 1 capsule every week by oral route for 90 days. cholecalcif dina (vitamin D3) 1,250 mcg (50,000 unit) capsule Take 1 capsule every week by oral route for 90 days. No 1capsul e(s) Q1W cholecalci ferol (vitamin D3) 1,250 mcg (50,000 unit) capsule Take 1 capsule every week by oral route for 90 days. [facility] glipizide ER 10 mg tablet, extended release 24 hr Take 1 tablet every day by oral route for 30 days. glipizide ER 10 mg tablet, extended release 24 hr Take 1 tablet every day by oral route for 30 days. No 1 Q1D glipizide ER 10 mg tablet, extended release 24 hr Take 1 tablet every day by oral route for 30 days. [facility] lisinopril 5 mg tablet 1 tab by mouth daily lisinopril 5 mg tablet 1 tab by mouth daily No lisinopril 5 mg tablet 1 tab by mouth daily [facility] metformin 500 mg tablet Take 1 tablet twice a day by oral route for 30 days. metformin 500 mg tablet Take 1 tablet twice a day by oral route for 30 days. No 1 BID metformin 500 mg tablet Take 1 tablet twice a day by oral route for 30 days. [facility] tramadol 50 mg tablet Take 1 tablet twice a day by oral route for 30 days. tramadol 50 mg tablet Take 1 tablet twice a day by oral route for 30 days. No 1 BID tramadol 50 mg tablet Take 1 tablet twice a day by oral route for 30 days. [facility] albuterol sulfate HFA 90 mcg/actuati on aerosol inhaler Inhale 2 puffs every 4 hours by inhalation route. albuterol sulfate HFA 90 mcg/actuati on aerosol inhaler Inhale 2 puffs every 4 hours by inhalation route. No 2puff(s ) Q4H albuterol sulfate HFA 90 mcg/actuat ion aerosol inhaler Inhale 2 puffs every 4 hours by inhalation route. [facility] aspirin 81 mg chewable tablet Chew 1 tablet every day by oral route. aspirin 81 mg chewable tablet Chew 1 tablet every day by oral route. No 1 Q1D aspirin 81 mg chewable tablet Chew 1 tablet every day by oral route. [facility] atorvastati n 40 mg tablet Take 1 tablet every day by oral route for 30 days. atorvastati n 40 mg tablet Take 1 tablet every day by oral route for 30 days. No 1 Q1D atorvastat in 40 mg tablet Take 1 tablet every day by oral route for 30 days. [facility] Calcium 600 + D(3) 600 mg-10 mcg (400 unit) tablet Take 1 tablet every day by oral route. Calcium 600 + D(3) 600 mg-10 mcg (400 unit) tablet Take 1 tablet every day by oral route. No 1 Q1D Calcium 600 + D(3) 600 mg-10 mcg (400 unit) tablet Take 1 tablet every day by oral route. [facility] cholecalcif dina (vitamin D3) 1,250 mcg (50,000 unit) capsule Take 1 capsule every week by oral route for 90 days. cholecalcif dina (vitamin D3) 1,250 mcg (50,000 unit) capsule Take 1 capsule every week by oral route for 90 days. No 1capsul e(s) Q1W cholecalci ferol (vitamin D3) 1,250 mcg (50,000 unit) capsule Take 1 capsule every week by oral route for 90 days. [facility] glipizide ER 10 mg tablet, extended release 24 hr Take 1 tablet every day by oral route for 30 days. glipizide ER 10 mg tablet, extended release 24 hr Take 1 tablet every day by oral route for 30 days. No 1 Q1D glipizide ER 10 mg tablet, extended release 24 hr Take 1 tablet every day by oral route for 30 days. [facility] lisinopril 5 mg tablet 1 tab by mouth daily lisinopril 5 mg tablet 1 tab by mouth daily No lisinopril 5 mg tablet 1 tab by mouth daily [facility] metformin 500 mg tablet Take 1 tablet twice a day by oral route for 30 days. metformin 500 mg tablet Take 1 tablet twice a day by oral route for 30 days. No 1 BID metformin 500 mg tablet Take 1 tablet twice a day by oral route for 30 days. [facility] tramadol 50 mg tablet Take 1 tablet twice a day by oral route for 30 days. tramadol 50 mg tablet Take 1 tablet twice a day by oral route for 30 days. No 1 BID tramadol 50 mg tablet Take 1 tablet twice a day by oral route for 30 days. [facility] atorvastati n 40 mg tablet Take 1 tablet every day by oral route for 30 days. atorvastati n 40 mg tablet Take 1 tablet every day by oral route for 30 days. No 1 Q1D atorvastat in 40 mg tablet Take 1 tablet every day by oral route for 30 days. [facility] Calcium 600 + D(3) 600 mg-10 mcg (400 unit) tablet Take 1 tablet every day by oral route. Calcium 600 + D(3) 600 mg-10 mcg (400 unit) tablet Take 1 tablet every day by oral route. No 1 Q1D Calcium 600 + D(3) 600 mg-10 mcg (400 unit) tablet Take 1 tablet every day by oral route. [facility] cholecalcif dina (vitamin D3) 1,250 mcg (50,000 unit) capsule Take 1 capsule every week by oral route for 90 days. cholecalcif dina (vitamin D3) 1,250 mcg (50,000 unit) capsule Take 1 capsule every week by oral route for 90 days. No 1capsul e(s) Q1W cholecalci ferol (vitamin D3) 1,250 mcg (50,000 unit) capsule Take 1 capsule every week by oral route for 90 days. [facility] glipizide ER 10 mg tablet, extended release 24 hr Take 1 tablet every day by oral route for 30 days. glipizide ER 10 mg tablet, extended release 24 hr Take 1 tablet every day by oral route for 30 days. No 1 Q1D glipizide ER 10 mg tablet, extended release 24 hr Take 1 tablet every day by oral route for 30 days. [facility] lisinopril 5 mg tablet 1 tab by mouth daily lisinopril 5 mg tablet 1 tab by mouth daily No lisinopril 5 mg tablet 1 tab by mouth daily [facility] metformin ER 500 mg tablet,exte nded release 24 hr Take 2 tablets every day by oral route at dinner. metformin ER 500 mg tablet,exte nded release 24 hr Take 2 tablets every day by oral route at dinner. No 2 Q1D metformin ER 500 mg tablet,ext ended release 24 hr Take 2 tablets every day by oral route at dinner. [facility] Naprosyn 500 mg tablet 1 po twice daily with food as needed for joint pain. Naprosyn 500 mg tablet 1 po twice daily with food as needed for joint pain. No Naprosyn 500 mg tablet 1 po twice daily with food as needed for joint pain. [facility] tramadol 50 mg tablet 1 po twice daily for severe pain. tramadol 50 mg tablet 1 po twice daily for severe pain. No tramadol 50 mg tablet 1 po twice daily for severe pain. [facility] atorvastati n 40 mg tablet Take 1 tablet every day by oral route for 30 days. atorvastati n 40 mg tablet Take 1 tablet every day by oral route for 30 days. No 1 Q1D atorvastat in 40 mg tablet Take 1 tablet every day by oral route for 30 days. [facility] famotidine 20 mg tablet Take 1 tablet twice a day by oral route. famotidine 20 mg tablet Take 1 tablet twice a day by oral route. No 1 BID famotidine 20 mg tablet Take 1 tablet twice a day by oral route. [facility] glipizide ER 10 mg tablet, extended release 24 hr Take 1 tablet every day by oral route for 30 days. glipizide ER 10 mg tablet, extended release 24 hr Take 1 tablet every day by oral route for 30 days. No 1 Q1D glipizide ER 10 mg tablet, extended release 24 hr Take 1 tablet every day by oral route for 30 days. [facility] lisinopril 5 mg tablet 1 tab by mouth daily lisinopril 5 mg tablet 1 tab by mouth daily No lisinopril 5 mg tablet 1 tab by mouth daily [facility] loperamide 2 mg tablet Take 2 mg as needed by oral route. loperamide 2 mg tablet Take 2 mg as needed by oral route. No 2mg loperamide 2 mg tablet Take 2 mg as needed by oral route. [facility] metformin ER 500 mg tablet,exte nded release 24 hr Take 2 tablets every day by oral route at dinner. metformin ER 500 mg tablet,exte nded release 24 hr Take 2 tablets every day by oral route at dinner. No 2 Q1D metformin ER 500 mg tablet,ext ended release 24 hr Take 2 tablets every day by oral route at dinner. [facility] tramadol 50 mg tablet 1 po twice daily for severe pain. tramadol 50 mg tablet 1 po twice daily for severe pain. No tramadol 50 mg tablet 1 po twice daily for severe pain. [facility] e Immunizations Ordered Immunization Name Filled Immunization Name Date Status Comments Source TDAP 2018-05-13 00:00:00 Completed [facility] TDAP 2018-05-13 00:00:00 Completed [facility] TDAP 2018-05-13 00:00:00 Completed [facility] TDAP 2018-05-13 00:00:00 Completed [facility] TDAP 2018-05-13 00:00:00 Completed [facility] TDAP Unknown Completed [facility] TDAP Unknown Completed [facility] TDAP Unknown Completed [facility] TDAP Unknown Completed [facility] TDAP Unknown Completed [facility] TDAP Unknown Completed [facility] TDAP Unknown Completed [facility] TDAP Unknown Completed [facility] TDAP Unknown Completed [facility] TDAP Unknown Completed [facility] TDAP Unknown Completed [facility] TDAP Unknown Completed [facility] TDAP Unknown Completed [facility] TDAP Unknown Completed [facility] TDAP Unknown Completed [facility] TDAP Unknown Completed [facility] TDAP Unknown Completed [facility] TDAP Unknown Completed [facility] TDAP Unknown Completed [facility] TDAP Unknown Completed [facility] TDAP Unknown Completed [facility] TDAP Unknown Completed [facility] TDAP Unknown Completed [facility] TDAP Unknown Completed [facility] TDAP Unknown Completed [facility] TDAP Unknown Completed [facility] TDAP Unknown Completed [facility] TDAP Unknown Completed [facility] TDAP Unknown Completed [facility] TDAP Unknown Completed [facility] TDAP Unknown Completed [facility] TDAP Unknown Completed [facility] TDAP Unknown Completed [facility] TDAP Unknown Completed [facility] TDAP Unknown Completed [facility] TDAP Unknown Completed [facility] TDAP Unknown Completed [facility] TDAP Unknown Completed [facility] Human Rabies Vaccine From Chicken Fibroblast Culture (RABAVERT) Unknown Completed [facility] TDAP Unknown Completed [facility] Human Rabies Vaccine From Chicken Fibroblast Culture (RABAVERT) Unknown Completed [facility] TDAP Unknown Completed [facility] Human Rabies Vaccine From Chicken Fibroblast Culture (RABAVERT) Unknown Completed [facility] Human Rabies Vaccine From Chicken Fibroblast Culture (RABAVERT) Unknown Completed [facility] TDAP Unknown Completed [facility] TDAP Unknown Completed [facility] Human Rabies Vaccine From Chicken Fibroblast Culture (RABAVERT) Unknown Completed [facility] Human Rabies Vaccine From Chicken Fibroblast Culture (RABAVERT) Unknown Completed [facility] TDAP Unknown Completed [facility] Human Rabies Vaccine From Chicken Fibroblast Culture (RABAVERT) Unknown Completed [facility] Human Rabies Vaccine From Chicken Fibroblast Culture (RABAVERT) Unknown Completed [facility] Human Rabies Vaccine From Chicken Fibroblast Culture (RABAVERT) Unknown Completed [facility] TDAP Unknown Completed [facility] Human Rabies Vaccine From Chicken Fibroblast Culture (RABAVERT) Unknown Completed [facility] Human Rabies Vaccine From Chicken Fibroblast Culture (RABAVERT) Unknown Completed [facility] Human Rabies Vaccine From Chicken Fibroblast Culture (RABAVERT) Unknown Completed [facility] TDAP Unknown Completed [facility] Human Rabies Vaccine From Chicken Fibroblast Culture (RABAVERT) Unknown Completed [facility] Human Rabies Vaccine From Chicken Fibroblast Culture (RABAVERT) Unknown Completed [facility] Human Rabies Vaccine From Chicken Fibroblast Culture (RABAVERT) Unknown Completed [facility] TDAP Unknown Completed [facility] Human Rabies Vaccine From Chicken Fibroblast Culture (RABAVERT) Unknown Completed [facility] Human Rabies Vaccine From Chicken Fibroblast Culture (RABAVERT) Unknown Completed [facility] Human Rabies Vaccine From Chicken Fibroblast Culture (RABAVERT) Unknown Completed [facility] TDAP Unknown Completed [facility] Human Rabies Vaccine From Chicken Fibroblast Culture (RABAVERT) Unknown Completed [facility] Human Rabies Vaccine From Chicken Fibroblast Culture (RABAVERT) Unknown Completed [facility] Human Rabies Vaccine From Chicken Fibroblast Culture (RABAVERT) Unknown Completed [facility] TDAP Unknown Completed [facility] Human Rabies Vaccine From Chicken Fibroblast Culture (RABAVERT) Unknown Completed [facility] Human Rabies Vaccine From Chicken Fibroblast Culture (RABAVERT) Unknown Completed [facility] Human Rabies Vaccine From Chicken Fibroblast Culture (RABAVERT) Unknown Completed [facility] TDAP Unknown Completed [facility] Human Rabies Vaccine From Chicken Fibroblast Culture (RABAVERT) Unknown Completed [facility] Human Rabies Vaccine From Chicken Fibroblast Culture (RABAVERT) Unknown Completed [facility] Human Rabies Vaccine From Chicken Fibroblast Culture (RABAVERT) Unknown Completed [facility] TDAP Unknown Completed [facility] Human Rabies Vaccine From Chicken Fibroblast Culture (RABAVERT) Unknown Completed [facility] Human Rabies Vaccine From Chicken Fibroblast Culture (RABAVERT) Unknown Completed [facility] Human Rabies Vaccine From Chicken Fibroblast Culture (RABAVERT) Unknown Completed [facility] TDAP Unknown Completed [facility] Human Rabies Vaccine From Chicken Fibroblast Culture (RABAVERT) Unknown Completed [facility] Human Rabies Vaccine From Chicken Fibroblast Culture (RABAVERT) Unknown Completed [facility] Human Rabies Vaccine From Chicken Fibroblast Culture (RABAVERT) Unknown Completed [facility] Human Rabies Vaccine From Chicken Fibroblast Culture (RABAVERT) Unknown Completed [facility] TDAP Unknown Completed [facility] Human Rabies Vaccine From Chicken Fibroblast Culture (RABAVERT) Unknown Completed [facility] Human Rabies Vaccine From Chicken Fibroblast Culture (RABAVERT) Unknown Completed [facility] Human Rabies Vaccine From Chicken Fibroblast Culture (RABAVERT) Unknown Completed [facility] TDAP Unknown Completed [facility] Human Rabies Vaccine From Chicken Fibroblast Culture (RABAVERT) Unknown Completed [facility] Human Rabies Vaccine From Chicken Fibroblast Culture (RABAVERT) Unknown Completed [facility] TDAP Unknown Completed [facility] Human Rabies Vaccine From Chicken Fibroblast Culture (RABAVERT) Unknown Completed [facility] Human Rabies Vaccine From Chicken Fibroblast Culture (RABAVERT) Unknown Completed [facility] Human Rabies Vaccine From Chicken Fibroblast Culture (RABAVERT) Unknown Completed [facility] Vital Signs Vital Name Observation Time Observation Value Comments S ource Systolic blood pressure 2023-09-17 00:59:00 136 mm[Hg] [facility] Diastolic blood pressure 2023-09-17 00:59:00 80 mm[Hg] [facility] Heart rate 2023-09-17 00:59:00 62 /min [facility] Body temperature 2023-09-17 00:59:00 36.78 Fauzia [facility] Respiratory rate 2023-09-17 00:59:00 17 /min [facility] Body weight 2023-09-17 00:59:00 52.617 kg Univ [facility] BMI 2023-09-17 00:59:00 23.43 [facility] Arterial blood by Pulse oximetry 2023-09-17 00:59:00 98 /min [facility] Systolic blood pressure 2023-09-11 13:27:00 147 mm[Hg] [facility] Diastolic blood pressure 2023-09-11 13:27:00 78 mm[Hg] [facility] Heart rate 2023-09-11 13:27:00 71 /[facility] 2023-09-11 13:27:00 149.9 cm [facility] Body weight 2023-09-11 13:27:00 53.524 kg [facility] BMI 2023-09-11 13:27:00 23.83 kg[facility] in Arterial blood by Pulse oximetry 2023-09-11 13:27:00 97 /min [facility] Systolic blood pressure 2023-09-10 14:07:00 150 mm[Hg] [facility] Diastolic blood pressure 2023-09-10 14:07:00 83 mm[Hg] [facility] Heart rate 2023-09-10 14:06:00 65 /min [facility] 2023-09-10 14:06:00 149.9 cm [facility] Body [facility] 2023-09-10 14:06:00 53.842 [facility] BMI 2023-09-10 14:06:00 23.97 kg/m2 [facility] Oxygen saturation in Arterial blood by Pulse oximetry 2023-09-10 14:06:00 98 /min [facility] Systolic blood pressure 2023-09-10 01:22:00 132 mm[Hg] [facility] Diastolic blood pressure 2023-09-10 01:22:00 89 mm[Hg] [facility] Heart rate 2023-09-10 01:22:00 63 /min [facility] Body temperature 2023-09-10 01:22:00 36.28 Fauzia [facility] Respiratory rate 2023-09-10 01:22:00 17 /min [facility] Body height 2023-09-10 01:22:00 149.9 cm [facility] Body weight 2023-09-10 01:22:00 53.695 kg [facility] BMI 2023-09-10 01:22:00 23.91 kg/m2 [facility] Oxygen saturation in Arterial blood by Pulse oximetry 2023-09-10 01:22:00 100 /min [facility] Systolic blood pressure 2023-09-06 00:30:00 116 mm[Hg] [facility] Diastolic blood pressure 2023-09-06 00:30:00 72 mm[Hg] [facility] Heart rate 2023-09-06 00:30:00 69 /min [facility] Body temperature 2023-09-06 00:30:00 36.78 Fauzia [facility] Respiratory rate 2023-09-06 00:30:00 18 /min [facility] Body weight 2023-09-06 00:30:00 52.617 kg [facility] BMI 2023-09-06 00:30:00 23.43 kg/m2 [facility] Oxygen saturation in Arterial blood by Pulse oximetry 2023-09-06 00:30:00 99 /min [facility] Systolic blood pressure 2023-09-03 00:35:00 157 mm[Hg] [facility] Diastolic blood pressure 2023-09-03 00:35:00 92 mm[Hg] [facility] Heart rate 2023-09-03 00:35:00 64 /min [facility] Body temperature 2023-09-03 00:35:00 36.94 Fauzia [facility] Respiratory rate 2023-09-03 00:35:00 16 /min [facility] Body height 2023-09-03 00:35:00 149.9 cm Univ [facility] Body weight 2023-09-03 00:35:00 52.164 kg [facility] BMI 2023-09-03 00:35:00 23.23 kg/m2 [facility] Oxygen saturation in Arterial blood by Pulse oximetry 2023-09-03 00:35:00 100 /min [facility] Systolic blood pressure 2023-08-26 00:04:00 108 mm[Hg] [facility] Diastolic blood pressure 2023-08-26 00:04:00 67 mm[Hg] [facility] Heart rate 2023-08-26 00:04:00 65 /min [facility] Body temperature 2023-08-26 00:04:00 36.78 Fauzia [facility] Respiratory rate 2023-08-26 00:04:00 17 /min [facility] Body height 2023-08-26 00:04:00 149.9 cm Univ [facility] Body weight 2023-08-26 00:04:00 52.787 kg [facility] BMI 2023-08-26 00:04:00 23.50 kg/m2 [facility] Oxygen saturation in Arterial blood by Pulse oximetry 2023-08-26 00:04:00 96 /min [facility] Body weight 2023-06-19 19:24:00 54.432 kg [facility] BMI 2023-06-19 19:24:00 24.24 kg/m2 [facility] Systolic blood pressure 2023-06-18 21:19:00 119 mm[Hg] [facility] Diastolic blood pressure 2023-06-18 21:19:00 73 mm[Hg] [facility] Heart rate 2023-06-18 21:19:00 66 /min [facility] Body temperature 2023-06-18 21:19:00 37.17 Fauzia [facility] Respiratory rate 2023-06-18 21:19:00 16 /min [facility] Body height 2023-06-18 21:19:00 149.9 cm [facility] Body weight 2023-06-18 21:19:00 54.432 kg [facility] BMI 2023-06-18 21:19:00 24.24 kg/m2 [facility] Oxygen saturation in Arterial blood by Pulse oximetry 2023-06-18 21:19:00 97 /min [facility] Systolic blood pressure 2023-06-13 00:25:00 104 mm[Hg] [facility] Diastolic blood pressure 2023-06-13 00:25:00 70 mm[Hg] [facility] Heart rate 2023-06-13 00:25:00 81 /min [facility] Respiratory rate 2023-06-13 00:25:00 12 /min [facility] Oxygen saturation in Arterial blood by Pulse oximetry 2023-06-13 00:25:00 95 /min [facility] Body temperature 2023-06-12 23:11:00 36 Fauzia [facility] Body height 2023-06-12 18:16:00 149.9 cm [facility] Body weight 2023-06-12 18:16:00 54.432 kg [facility] BMI 2023-06-12 18:16:00 24.24 kg/m2 [facility] Systolic blood pressure 2023-06-12 18:16:00 111 mm[Hg] [facility] Diastolic blood pressure 2023-06-12 18:16:00 70 mm[Hg] [facility] Heart rate 2023-06-12 18:16:00 88 /min [facility] Body temperature 2023-06-12 18:16:00 36.89 Fauzia [facility] Respiratory rate 2023-06-12 18:16:00 18 /min [facility] Body height 2023-06-12 18:16:00 149.9 cm [facility] Body weight 2023-06-12 18:16:00 54.432 kg [facility] BMI 2023-06-12 18:16:00 24.24 kg/m2 [facility] Oxygen saturation in Arterial blood by Pulse oximetry 2023-06-12 18:16:00 98 /min [facility] Systolic blood pressure 2023-06-05 03:07:00 165 mm[Hg] [facility] Diastolic blood pressure 2023-06-05 03:07:00 83 mm[Hg] [facility] Heart rate 2023-06-05 03:07:00 86 /min [facility] Body temperature 2023-06-05 03:07:00 37.72 Fauzia [facility] Respiratory rate 2023-06-05 03:07:00 18 /min [facility] Oxygen saturation in Arterial blood by Pulse oximetry 2023-06-05 03:07:00 97 /min [facility] Body height 2023-06-04 22:16:00 149.9 cm [facility] Body weight 2023-06-04 22:16:00 54.432 kg [facility] BMI 2023-06-04 22:16:00 24.24 kg/m2 [facility] Systolic blood pressure 2023-06-03 21:08:00 156 mm[Hg] [facility] Diastolic blood pressure 2023-06-03 21:08:00 82 mm[Hg] [facility] Heart rate 2023-06-03 21:08:00 88 /min [facility] Body temperature 2023-06-03 21:08:00 36.72 Fauzia [facility] Respiratory rate 2023-06-03 21:08:00 18 /min [facility] Oxygen saturation in Arterial blood by Pulse oximetry 2023-06-03 21:08:00 96 /min [facility] Body weight 2023-06-03 09:22:00 55.974 kg [facility] BMI 2023-06-03 09:22:00 24.92 kg/m2 [facility] Body height 2023-06-02 16:13:00 149.9 cm [facility] Systolic blood pressure 2023-06-02 18:50:00 112 mm[Hg] [facility] Diastolic blood pressure 2023-06-02 18:50:00 61 mm[Hg] [facility] Heart rate 2023-06-02 18:50:00 80 /min [facility] Respiratory rate 2023-06-02 18:50:00 16 /min [facility] Oxygen saturation in Arterial blood by Pulse oximetry 2023-06-02 18:50:00 95 /min [facility] Body temperature 2023-06-02 18:19:00 38 Fauzia [facility] Body height 2023-06-02 16:13:00 149.9 cm [facility] Body weight 2023-06-02 16:13:00 56.246 kg [facility] BMI 2023-06-02 16:13:00 24.92 kg/m2 [facility] BP Diastolic 2023-05-02 00:00:00 72 mm[Hg] [facility] BP Systolic 2023-05-02 00:00:00 117 mm[Hg] [facility] BMI (Body Mass Index) 2023-05-02 00:00:00 25.2 kg/m2 [facility] Height 2023-05-02 00:00:00 59 [in_i] [facility] Body Weight 2023-05-02 00:00:00 125 [lb_av] [facility] BP Systolic 2023-01-23 00:00:00 129 mm[Hg] [facility] BMI (Body Mass Index) 2023-01-23 00:00:00 24.9 kg/m2 [facility] Practice Height 2023-01-23 00:00:00 59 [in_i] [facility] BP Diastolic 2023-01-23 00:00:00 78 mm[Hg] [facility] Body Weight 2023-01-23 00:00:00 123.4 [lb_av] [facility] BP Diastolic 2022-05-30 00:00:00 81 mm[Hg] [facility] Height 2022-05-30 00:00:00 59 [in_i] [facility] BMI (Body Mass Index) 2022-05-30 00:00:00 23.7 kg/m2 [facility] Practice BP Systolic 2022-05-30 00:00:00 130 mm[Hg] [facility] Body Weight 2022-05-30 00:00:00 117.4 [lb_av] [facility] BP Diastolic 2022-04-25 00:00:00 79 mm[Hg] [facility] Height 2022-04-25 00:00:00 59 [in_i] [facility] BMI (Body Mass Index) 2022-04-25 00:00:00 23.7 kg/m2 [facility] BP Systolic 2022-04-25 00:00:00 124 mm[Hg] [facility] Body Weight 2022-04-25 00:00:00 117.4 [lb_av] [facility] BP Diastolic 2022-03-28 00:00:00 83 mm[Hg] [facility] Height 2022-03-28 00:00:00 59 [in_i] [facility] BMI (Body Mass Index) 2022-03-28 00:00:00 23.2 kg/m2 [facility] BP Systolic 2022-03-28 00:00:00 126 mm[Hg] [facility] Body Weight 2022-03-28 00:00:00 115 [lb_av] [facility] BP Diastolic 2021-10-11 00:00:00 60 mm[Hg] [facility] Height 2021-10-11 00:00:00 59 [in_i] [facility] BMI (Body Mass Index) 2021-10-11 00:00:00 26.3 kg/m2 [facility] BP Systolic 2021-10-11 00:00:00 89 mm[Hg] [facility] Body Weight 2021-10-11 00:00:00 130 [lb_av] [facility] Systolic blood pressure 2021-09-27 14:48:37 157 mm[Hg] [facility] Diastolic blood pressure 2021-09-27 14:48:37 88 mm[Hg] [facility] Heart rate 2021-09-27 14:48:37 87 /min [facility] Respiratory rate 2021-09-27 14:48:37 18 /min [facility] Oxygen saturation in Arterial blood by Pulse oximetry 2021-09-27 14:48:37 98 /min [facility] Body temperature 2021-09-27 04:25:10 36.72 Fauzia [facility] Body height 2021-09-27 03:49:00 149.9 cm [facility] Body weight 2021-09-27 03:49:00 54.432 kg [facility] BMI 2021-09-27 03:49:00 24.24 kg/m2 [facility] BP Diastolic 2021-06-13 00:00:00 79 mm[Hg] [facility] Height 2021-06-13 00:00:00 59 [in_i] [facility] Practice BMI (Body Mass Index) 2021-06-13 00:00:00 25.6 kg/m2 [facility] Practice BP Systolic 2021-06-13 00:00:00 141 mm[Hg] [facility] Practice Body Weight 2021-06-13 00:00:00 126.8 [lb_av] [facility] BP Diastolic 2021-03-22 00:00:00 82 mm[Hg] [facility] Height 2021-03-22 00:00:00 59 [in_i] [facility] BMI (Body Mass Index) 2021-03-22 00:00:00 24 kg/m2 [facility] ly Practice BP Systolic 2021-03-22 00:00:00 120 mm[Hg] [facility] Body Weight 2021-03-22 00:00:00 119 [lb_av] [facility] Systolic blood pressure 2023-09-10 14:07:00 150 mm[Hg] [facility] Diastolic blood pressure 2023-09-10 14:07:00 83 mm[Hg] [facility] Heart rate 2023-09-10 14:06:00 65 /min [facility] 2023-09-10 14:06:00 149.9 cm [facility] Body weight 2023-09-10 14:06:00 53.842 kg [facility] BMI 2023-09-10 14:06:00 23.97 kg/m2 [facility] Oxygen saturation in Arterial blood by Pulse oximetry 2023-09-10 14:06:00 98 /min [place] [facility] Body temperature 2023-09-10 01:22:00 36.28 Fauzia [facility] Respiratory rate 2023-09-10 01:22:00 17 /min [facility] Procedures Procedure Date / Time Performed Performing Clinician Source RABIES VACCINE, IM 2023-09-17 01:00:58 Doctor Un assigned, [place] [facility] MICROALBUMIN URINE 2023-09-10 14:57:00 [facility] 2023-09-10 14:55:00 Martha Dangelo [facility] COMP. METABOLIC PANEL (60474) 2023-09-10 14:55:00 Martha Dangelo [facility] LIPID PANEL ([id number])(TOTAL CHOLESTEROL, TRIGLYCERIDES, HDL) 2023-09-10 14:55:00 Martha Dangelo [facility] CBC WITH DIFF 2023-09-10 14:55:00 Martha Dangelo [facility] COMP. METABOLIC PANEL ([id number]) 2023-09-10 14:55:00 Martha Dangelo [facility] GLYCOSYLATED HEMOGLOBIN (A1C) 2023-09-10 14:55:00 Martha Dangelo [facility] LIPID PANEL ([id number])(TOTAL CHOLESTEROL, TRIGLYCERIDES, HDL) 2023-09-10 14:55:00 Martha Dangelo [facility] THYROID STIMULATING HORMONE 2023-09-10 14:55:00 Martha Dangelo [facility] FREE T4 2023-09-10 14:55:00 Martha Dangelo [facility] RABIES VACCINE, IM 2023-09-10 01:25:48 Doctor Un assigned, [place] [facility] RABIES VACCINE, IM 2023-09-10 01:25:48 Doctor Un assigned, [place] [facility] RABIES VACCINE, 2023-09-06 00:50:30 Mad[facility]ABIES [facility]ACC[facility], 2023-09-06 00:50:30 Madeline Simons Un [facility] XR RIBS 3 VW LEFT 2023-08-26 01:03:20 See Min [facility] XR RIBS 3 VW LEFT 2023-08-26 01:03:20 See Min [facility] XR HAND 3+ VW RIGHT 2023-08-26 01:03:00 Sade Min [facility] XR HAND 3+ VW RIGHT 2023-08-26 01:03:00 Sade Min [facility] CT ABDOMEN PELVIS WO CONTRAST 2023-06-21 20:34:50 Mikayla Florez [facility] REFERRAL- REQUEST/RESPONSE 2023-06-18 21:13:52 D octor Unassigned, [place] [facility] REFERRAL- REQUEST/RESPONSE 2023-06-18 20:59:23 D octor Unassigned, [place] [facility] [place] TIME OR (NON-REPORTABLE) 2023-06-12 23:10:00 Rosey [facility] URINE CULTURE 2023-06-12 22:38:00 [facility] 2023-06-12 21:52:[address] [facility] URETEROSCOPIC STONE MANIPULATION 2023-06-12 21:35:00 Rosey [facility] URETEROSCOPIC STONE MANIPULATION 2023-06-12 21:35:00 Rosey [facility] URETEROSCOPIC STONE MANIPULATION 2023-06-12 21:35:00 Rosey [facility] URETEROSCOPIC STONE MANIPULATION 2023-06-12 21:35:00 Rosey [facility] URETEROSCOPIC STONE MANIPULATION 2023-06-12 21:35:00 Rosey [facility] URETEROSCOPIC STONE MANIPULATION 2023-06-12 21:35:00 Rosey [facility] URETEROSCOPIC STONE MANIPULATION 2023-06-12 21:35:00 Rosey [facility] [id number] - [place] CYSTO/URETERO W/LITHOTRIPSY &INDWELL STENT INSRT 2023-06-12 21:35:00 Rosey [facility] 48388 - [place] CYST[place] W/URETEROSCOPY W/RMVL/MANJ STONES 2023-06-12 21:35:00 Rosey [facility] 33150 - [place]ST[place] W/URETEROSCOPY W/LITHOTRIPSY 2023-06-12 21:35:00 Rosey [facility] 77234 - [place]ST[place] W/SIMPLE REMOVAL STONE & STENT 2023-06-12 21:35:00 [facility] [place] W/COMPLEX REMOVAL STONE & STENT 2023-06-12 21:35:00 [facility] [address] - [place] W/INSERT URETERAL STENT 2023-06-12 21:35:00 [id number] CHG UROGRAPHY RETROGRADE WITH/WO KUB 2023-06-12 21:35:00 [facility] POCT GLUCOSE (AUTOMATED) 2023-06-12 18:33:00 [facility] POCT GLUCOSE (AUTOMATED) 2023-06-12 18:33:00 [facility] POCT GLUCOSE (AUTOMATED) 2023-06-12 18:33:00 [facility] 2023-06-05 01:27:00 Jase Flores [facility] COMP. METABOLIC PANEL ([id number]) 2023-06-05 00:42:00 Mark [facility] CBC WITH DIFF 2023-06-05 00:42:00 Mark [facility] CONSENT/REFUSAL FOR DIAGNOSIS AND TREATMENT 2023-06-04 22:10:48 Doctor Unassigned, [place] [facility] POCT GLUCOSE (AUTOMATED) 2023-06-03 17:25:00 Ra damon Sanchez [facility] POCT GLUCOSE (AUTOMATED) 2023-06-03 17:25:00 Ra damon Sanchez [facility] POCT GLUCOSE (AUTOMATED) 2023-06-03 12:57:00 Ra damon Sanchez [facility] POCT GLUCOSE (AUTOMATED) 2023-06-03 12:57:00 Ra damon Sanchez [facility] PHOSPHORUS 2023-06-03 09:29:00 Avtar [facility] MAGNESIUM 2023-06-03 09:29:00 Nicolede [facility] BASIC METABOLIC PANEL (NA, K, CL, CO2, GLUCOSE, BUN, CREATININE, CA) 2023-06-03 09:29:00 Avtar [facility] PHOSPHORUS 2023-06-03 09:29:00 Avtar [facility] MAGNESIUM 2023-06-03 09:29:00 duyende [facility] BASIC METABOLIC PANEL (NA, K, CL, CO2, GLUCOSE, BUN, CREATININE, CA) 2023-06-03 09:29:00 Avtar [facility] CBC WITH DIFF 2023-06-03 08:12:00 [facility] WITH DIFF 2023-06-03 08:12:00 [facility] POCT GLUCOSE (AUTOMATED) 2023-06-03 08:11:00 Ra damon Sanchez [facility] POCT GLUCOSE (AUTOMATED) 2023-06-03 08:11:00 Ra damon Sanchez [facility] POCT GLUCOSE (AUTOMATED) 2023-06-03 05:03:00 Ra damon Sanchez [facility] POCT GLUCOSE (AUTOMATED) 2023-06-03 05:03:00 Ra damon Sanchez [facility] POCT GLUCOSE (AUTOMATED) 2023-06-03 01:49:00 Ra damon Sanchez [facility] POCT GLUCOSE (AUTOMATED) 2023-06-03 01:49:00 Ra damon Sanchez [facility] POCT GLUCOSE (AUTOMATED) 2023-06-02 21:36:00 Ra damon Sanchez [facility] POCT GLUCOSE (AUTOMATED) 2023-06-02 21:36:00 Ra damon Sanchez [facility] [place] TIME OR (NON-REPORTABLE) 2023-06-02 18:10:56 Margaret Tena [facility] FL TIME OR (NON-REPORTABLE) 2023-06-02 18:10:56 Margaret Tena [facility] URINE CULTURE 2023-06-02 18:02:[address] [facility] URINE CULTURE 2023-06-02 18:02:00 [facility] WITH INSERTION STENT URETER 2023-06-02 17:18:00 [facility] RETRO[facility]ADE PYELOGRAM 2023-06-02 17:18:00 Magdiel Gomes [facility] CYSTOSCOPY WITH INSERTION STENT URETER 2023-06-02 17:18:00 Rosey [facility] RETROGRADE PYELOGRAM 2023-06-02 17:18:00 Magdiel Gomes [facility] URINALYSIS 2023-06-02 16:11:[address] [facility] URINALYSIS 2023-06-02 16:11:[address] [facility] PHOSPHORUS 2023-06-02 09:52:00 Calvin Nova [facility] MAGNESIUM 2023-06-02 09:52:[address] THYROID STIMULATING HORMONE 2023-06-02 09:52:00 Avtar [facility] BASIC METABOLIC PANEL (NA, K, CL, CO2, GLUCOSE, BUN, CREATININE, CA) 2023-06-02 09:52:00 Avtar Calvin [facility] LIPID PANEL ([id number])(TOTAL CHOLESTEROL, TRIGLYCERIDES, HDL) 2023-06-02 09:52:00 Avtar [facility] CBC WITH DIFF 2023-06-02 09:52:00 [facility] GLYCOSYLATED HEMOGLOBIN (A1C) 2023-06-02 09:52:00 Avtar [facility] PHOSPHORUS 2023-06-02 09:52:00 [facility] 2023-06-02 09:52:00 Avtar [facility] THYROID STIMULATING HORMONE 2023-06-02 09:52:00 Avtar [facility] BASIC METABOLIC PANEL (NA, K, CL, CO2, GLUCOSE, BUN, CREATININE, CA) 2023-06-02 09:52:00 Avtar [facility] LIPID PANEL ([id number])(TOTAL CHOLESTEROL, TRIGLYCERIDES, HDL) 2023-06-02 09:52:00 Avtar [facility] CBC WITH DIFF 2023-06-02 09:52:00 [facility] GLYCOSYLATED HEMOGLOBIN (A1C) 2023-06-02 09:52:00 Avtar [facility] POCT GLUCOSE (AUTOMATED) 2023-06-02 01:57:00 Avtar [facility] POCT GLUCOSE (AUTOMATED) 2023-06-02 01:57:00 Avtar [facility] BLOOD CULTURE SCREEN 2023-06-01 22:49:00 Ger Nova am [facility] BLOOD CULTURE SCREEN 2023-06-01 22:49:00 Ger Nova am [facility] POCT GLUCOSE(AGE >30DAYS) 2023-06-01 22:27:00 Avtar [facility] POCT GLUCOSE(AGE >30DAYS) 2023-06-01 22:27:00 Avtar [facility] POCT GLUCOSE (AUTOMATED) 2023-06-01 22:26:00 Avtar [facility] POCT GLUCOSE (AUTOMATED) 2023-06-01 22:26:00 Heidari, Calvin [facility] BLOOD CULTURE SCREEN 2023-06-01 22:06:00 Ger Nova am [facility] BLOOD CULTURE SCREEN 2023-06-01 22:06:00 Ger Nova am [facility] XR CHEST 2 VW 2023-06-01 17:34:00 Rc Peng [facility] XR CHEST 2 VW 2023-06-01 17:34:00 Rc Peng [facility] CT ABDOMEN PELVIS WO CONTRAST 2023-06-01 17:23:00 Domenic Rc [facility] CT ABDOMEN PELVIS WO CONTRAST 2023-06-01 17:23:00 Domenic Rc [facility] LIPASE 2023-06-01 16:31:00 Rc Peng [facility] COMP. METABOLIC PANEL ([id number]) 2023-06-01 16:31:00 Domenic Rc [facility] CBC WITH DIFF 2023-06-01 16:31:00 Rc Peng [facility] URINALYSIS 2023-06-01 16:31:00 Rc Peng [facility] URINE CULTURE 2023-06-01 16:31:00 Rc Peng [facility] EXTRA TUBE URINE CULTURE 2023-06-01 16:31:00 Raf Peng [facility] LIPASE 2023-06-01 16:31:00 Rc Peng [facility] COMP. METABOLIC PANEL ([id number]) 2023-06-01 16:31:00 Rc Peng [facility] CBC WITH DIFF 2023-06-01 16:31:00 Rc Peng [facility] URINALYSIS 2023-06-01 16:31:00 Rc Peng [facility] URINE CULTURE 2023-06-01 16:31:00 Rc Peng [facility] EXTRA TUBE URINE CULTURE 2023-06-01 16:31:00 Raf Peng [facility] CONSENT/REFUSAL FOR DIAGNOSIS AND TREATMENT 2023-06-01 16:13:14 Doctor Unassigned, [place] [facility] CONSENT/REFUSAL FOR DIAGNOSIS AND TREATMENT 2023-06-01 16:13:14 Doctor Unassigned, [place] [facility] MAMMO, screening, digital, bilateral 2023-01-23 00:00:00 [facility] MAMMO, screening, tomosynthesis, bilateral, w/ CAD 2022-05-30 00:00:00 [facility] MEDICATION CORRESPONDENCE 2021-10-26 05:01:00 Do ctor Unassigned, [place] [facility] EKG-12 LEAD 2021-09-27 11:30:18 Jayden Knight [facility] ETHANOL 2021-09-27 09:11:00 Jayden Knight [facility] CBC WITH DIFF 2021-09-27 06:19:[address] [facility] COVID-19 (ID NOW RAPID TESTING) 2021-09-27 06:19:00 Jayden Knight [facility] CT ABDOMEN PELVIS W CONTRAST 2021-09-27 05:55:00 Jayden Knight [facility] CREATINE KINASE 2021-09-27 04:36:00 Jayden Knight [facility] TROPONIN I 2021-09-27 04:36:00 Jayden Knight [facility] THYROID STIMULATING HORMONE 2021-09-27 04:36:00 Jayden Knight [facility] COMP. METABOLIC PANEL ([id number]) 2021-09-27 04:36:00 Jayden Knight [facility] SALICYLATE 2021-09-27 04:36:00 Jayden Knight [facility] ETHANOL 2021-09-27 04:36:00 Jayden Knight [facility] XR CHEST 1 VW 2021-09-27 04:25:[address] [facility] URINALYSIS 2021-09-27 04:18:00 Jayden Knight [facility] URINE DRUG (IMMUNOASSAY) - COMPREHENSIVE DRUG SCREEN W/O REFLEX 2021-09-27 04:18:00 Jayden Knight [facility] ASSIGNMENT OF BENEFITS 2021-09-27 03:30:08 Docto r Unassigned, [place] [facility] CONSENT/REFUSAL FOR DIAGNOSIS AND TREATMENT 2021-09-27 03:29:46 Doctor Unassigned, [place] [facility] X-RAY OF FOOT 3+ VIEW 2021-06-13 00:00:00 [facility] COLONOSCOPY (ENDO) 2020-12-06 13:34:50 Bob Min [facility] CT LUNG CANCER SCREENING 2020-12-04 20:57:13 Bob Min [facility] BI SCREENING TOMOSYNTHESIS BILATERAL 2020-12-04 20:40:46 Bob Min [facility] HCV ANTIBODY 2013-09-07 15:00:00 Glenny Arreola [facility] Hysterectomy (Total) [facility] Colon Surgery [facility] Cholecystectomy [facility] Plan of Care Planned Activity Planned Date Details Comments Source Diagnostic Test Pending 2023-01-23 00:00:00 hemoglobin A1C, fingerstick [code = hemoglobin A1C, fingerstick] [facility] Diagnostic Test Pending 2023-01-23 00:00:00 CMP, serum or plasma [code = CMP, serum or plasma] [facility] Diagnostic Test Pending 2023-01-23 00:00:00 CBC w/ auto diff [code = CBC w/ auto diff] [facility] Diagnostic Test Pending 2023-01-23 00:00:00 lipid panel, serum [code = lipid panel, serum] [facility] Diagnostic Test Pending 2023-01-23 00:00:00 vitamin D, 25-hydroxy, total, serum [code = vitamin D, 25-hydroxy, total, serum] [facility] Future Appointment 2024-01-26 09:20:00 Jovana Weber, [address] [facility] ; [address], [place] [address] [facility] Encounters Start Date/Time End Date/Time Encounter Type Admission Type Attending Clinicians Care Facility Care Department Encounter ID Source 2023-06-19 13:43:36 Outpatient MIKAYLA MARIA [facility] [id number] [facility] 2023-05-27 12:30:00 [id number] 2021-01-15 20:17:20 Emergency [facility] [id number] [facility] 2021-01-15 20:08:02 Emergency [facility] [id number] [facility] 2023-12-12 08:00:00 2023-12-12 08:00:00 Outpatient DARBY DOLL [facility] [id number] [facility] 2023-11-20 08:00:00 2023-11-20 08:00:00 Outpatient CLARIBEL SARABIA [facility] [id number] [facility] 2023-10-16 08:00:00 2023-10-16 08:00:00 Outpatient CLARIBEL SARABIA [facility] [id number] [facility] 2023-09-09 00:00:00 2023-10-11 18:20:52 Patient Secure Msg Doctor Unassigned, [place] [facility] [id number] 350.1.13.10 4.2.7.2.686 [id number] [facility] 2023-09-26 07:30:00 2023-09-26 07:30:00 Outpatient SAMUEL BLOOD [facility] [id number] [facility] 2023-09-06 00:00:00 2023-09-25 08:14:14 Telephone [facility] [id number] 350.1.13.10 4.2.7.2.686 [id number] [facility] 2023-09-16 19:40:00 2023-09-16 20:06:27 Outpatient MADELINE [facility] [id number] [facility] 2023-09-16 19:40:00 2023-09-16 20:00:00 Nurse Visit Nurse, [facility] Unknown, Attending [facility] [id number] 350.1.13.10 4.2.7.2.686 [id number] [facility] 2023-09-16 00:00:00 2023-09-16 10:28:59 Telephone Yuniel [facility] [id number] 350.1.13.10 4.2.7.2.686 [id number] [facility] 2023-09-15 18:00:00 2023-09-15 18:00:00 Outpatient R UNKNOWN, ATTEND[facility] [id number] [facility] 2023-09-15 00:00:00 2023-09-15 11:50:22 Telephone Martha Dangelo [facility] 1.84.114 350.1.13.10 4.2.7.2.686 [id number] [facility] 2023-09-11 09:16:29 2023-09-11 23:59:00 Hospital Encounter Martha Dangelo [facility] [id number] 350.1.13.10 4.2.7.2.686 [id number] [facility] 2023-09-11 08:15:00 2023-09-11 09:16:34 Outpatient R DARBY BROTHERS [facility] [id number] [facility] 2023-09-11 08:15:00 2023-09-11 09:16:34 Office Visit Darby Brothers [facility] [id number] 350.1.13.10 4.2.7.2.686 [id number] [facility] 2023-09-10 09:53:16 2023-09-10 23:59:00 Outpatient R MARTHA DANGELO [facility] [id number] [facility] 2023-09-10 00:00:00 2023-09-10 17:31:14 Telephone Martha Dangelo [facility] [id number] 350.1.13.10 4.2.7.2.686 [id number] [facility] 2023-09-10 10:00:00 2023-09-10 10:00:00 Geological Technician Visit Martha Dangelo Ang - Db 1.2.840.1 [id number] [id number] [facility] 2023-09-10 09:00:00 2023-09-10 09:47:49 Office Visit Martha Dangelo 1.2.840.1 [id number] [id number] [facility] 2023-09-09 20:30:00 2023-09-09 20:32:24 Outpatient R LUDMILA [facility] [id number] [facility] 2023-09-09 20:30:00 2023-09-09 20:32:24 Nurse Visit Ludmila [facility] 1.2.840.1 [id number] [id number] [facility] 2023-09-09 00:00:00 2023-09-09 00:00:00 Travel 1.2.840.1 [id number] 3.104.2.7 .[id number] .[id number] 350.1.13.10 4.2.7.3.698 [id number] [facility] 2023-09-08 18:00:00 2023-09-08 18:00:00 Outpatient R UNKNOWN, [facility] [id number] [facility] 2023-09-06 00:00:00 2023-09-06 18:29:42 Telephone JoelTae terrazas 1.2.840.1 [id number] .[id number] [facility] 2023-08-01 00:00:00 2023-09-06 18:22:56 Patient Secure Msg Yuniel Thurman Lisette 1.2.840.1 51894.1.1 3.104.2.7 .3.884701 .8 [id number] [facility] 2023-09-05 19:20:00 2023-09-05 19:31:50 Outpatient R MADELINE [facility] [id number] [facility] 2023-09-05 19:20:00 2023-09-05 19:31:50 Urgent Care Unknown, Attending Madeline Simons 1.2.840.1 78126.1.1 3.104.2.7 .3.328231 .8 [id number] [facility] 2023-09-04 18:00:00 2023-09-04 18:00:00 Outpatient R UNKNOWN, [facility] [id number] [facility] 2023-09-04 00:00:00 2023-09-04 00:00:00 Travel 1.2.840.1 50358.1.1 3.104.2.7 .3.641830 .8 1.2.840.114 350.1.13.10 4.2.7.3.698 084.8 [id number] [facility] 2023-09-03 00:00:00 2023-09-03 13:59:38 Telephone [facility] 1.2.840.1 17067.1.1 3.104.2.7 .3.045575 .8 [id number] [facility] 2023-09-02 19:31:00 2023-09-02 20:45:00 Emergency X JOSE GLEASON [facility] ERT [id number] [facility] 2023-09-02 19:31:00 2023-09-02 20:45:00 Emergency Jose Gleason 1.2.840.1 12811.1.1 3.104.2.7 .3.452249 .8 [id number] [facility] 2023-09-02 00:00:00 2023-09-02 00:00:00 Travel 1.2.840.1 38463.1.1 3.104.2.7 .3.401028 .8 1.2.840.114 350.1.13.10 4.2.7.3.698 084.8 [id number] [facility] 2023-08-29 00:00:00 2023-08-29 15:49:37 Telephone See Min 1.2.840.1 94299.1.1 3.104.2.7 .3.260708 .8 [id number] [facility] 2023-08-25 19:45:19 2023-08-25 23:59:00 Hospital Encounter See Min 1.2.840.1 89863.1.1 3.104.2.7 .3.028033 .8 [id number] [facility] 2023-08-25 19:45:18 2023-08-25 23:59:00 Hospital Encounter See Min 1.2.840.1 35155.1.1 3.104.2.7 .3.060787 .8 [id number] [facility] 2023-08-25 18:20:00 2023-08-25 19:57:17 Outpatient R SEE [facility] [id number] [facility] 2023-08-25 18:20:00 2023-08-25 19:57:17 Urgent Care Unknown, Attending MinSee betancourt 1.2.840.1 81275.1.1 3.104.2.7 .3.842588 .8 [id number] [facility] 2023-08-25 00:00:00 2023-08-25 00:00:00 Travel 1.2.840.1 53630.1.1 3.104.2.7 .3.016677 .8 1.2.840.114 350.1.13.10 4.2.7.3.698 084.8 [id number] [facility] 2023-08-09 16:59:00 2023-08-09 20:10:00 Emergency E YUNIEL CALDERON MHSE MHSE [id number] [facility] 2023-08-05 18:46:00 2023-08-05 19:35:00 Emergency EM Parker Benitez HCACL PERS [id number] [facility] 2023-08-04 18:49:00 2023-08-04 22:15:00 Emergency EM EDDOC, GENERIC HCACL AERS [id number] [facility] 2023-07-31 00:00:00 2023-08-01 16:16:48 Telephone Yuniel Thurman 1.2.840.1 58200.1.1 3.104.2.7 .3.605729 .8 [id number] [facility] 2023-06-19 00:00:00 2023-07-26 18:13:47 Patient Secure Msg Doctor Unassigned, [place] 1.2.840.1 03698.1.1 3.104.2.7 .3.742989 .8 [id number] [facility] 2023-07-14 15:00:00 2023-07-14 15:00:00 Outpatient [facility]OS [facility] [id number] [facility] 2023-06-11 00:00:00 2023-07-10 13:55:42 Patient Secure Msg Carlos Gomes 1.2.840.1 92509.1.1 3.104.2.7 .3.365068 .8 [id number] [facility] 2023-07-08 13:30:00 2023-07-08 13:30:00 Outpatient Jhonathan [facility]AYLA [facility] [id number] [facility] 2023-07-07 00:00:00 2023-07-07 13:05:16 Telephone Gautam Mikayla 1.2.840.1 07749.1.1 3.104.2.7 .3.610181 .8 [id number] [facility] 2023-06-13 00:00:00 2023-06-29 11:19:28 Telephone Carlos Gomes 1.2.840.1 52511.1.1 3.104.2.7 .3.168824 .8 [id number] [facility] 2023-06-25 00:00:00 2023-06-26 11:10:24 Telephone Gautam Mikayla 1.2.840.1 76198.1.1 3.104.2.7 .3.955790 .8 [id number] [facility] 2023-06-21 15:01:36 2023-06-21 23:59:00 Outpatient R [facility]KAYLA [facility] [id number] [facility] 2023-06-21 15:01:36 2023-06-21 23:59:00 Hospital Encounter Mikayla Florez 1.2.840.1 36130.1.1 3.104.2.7 .3.093229 .8 [id number] [facility] 2023-06-20 00:00:00 2023-06-20 15:48:13 Telephone Mikayla Florez 1.2.840.1 70576.1.1 3.104.2.7 .3.787923 .8 [id number] [facility] 2023-06-19 23:59:59 2023-06-19 23:59:59 Anesthesia Event MasonPiotrCaitlin 1.2.840.1 58959.1.1 3.104.2.7 .3.135808 .8 [id number] [facility] 2023-06-19 00:00:00 2023-06-19 16:46:54 Telephone Mikayla Florez 1.2.840.1 57111.1.1 3.104.2.7 .3.873176 .8 [id number] [facility] 2023-06-19 14:15:00 2023-06-19 15:38:41 Office Visit Yuniel Thurman 1.2.840.1 72505.1.1 3.104.2.7 .3.728123 .8 [id number] [facility] 2023-06-19 14:15:00 2023-06-19 14:15:00 Outpatient R YUNIEL [facility] [id number] [facility] 2023-06-19 00:00:00 2023-06-19 00:00:00 Outpatient Maria Fernanda MARTINEZ VFP VFP [id number] [facility] 2023-06-19 00:00:00 2023-06-19 00:00:00 Travel 1.2.840.1 44272.1.1 3.104.2.7 .3.506546 .8 1.2.840.114 350.1.13.10 4.2.7.3.698 084.8 [id number] [facility] 2023-06-18 16:15:00 2023-06-18 16:45:00 Office Visit Mikayla Florez 1.2.840.1 57029.1.1 3.104.2.7 .3.454800 .8 [id number] [facility] 2023-06-18 16:15:00 2023-06-18 16:15:00 Outpatient R MIKAYLA [facility] [id number] [facility] 2023-06-18 15:30:00 2023-06-18 15:30:00 [facility] [id number] [facility] 2023-06-18 00:00:00 2023-06-18 00:00:00 Orders Only Doctor Unassigned, [place] 1.2.840.1 71073.1.1 3.104.2.7 .3.255813 .8 [id number] [facility] 2023-06-18 00:00:00 2023-06-18 00:00:00 Orders Only Doctor Unassigned, [place] 1.2.840.1 04611.1.1 3.104.2.7 .3.418829 .8 [id number] [facility] 2023-06-18 00:00:00 2023-06-18 00:00:00 Travel 1.2.840.1 51469.1.1 3.104.2.7 .3.166333 .8 1.2.840.114 350.1.13.10 4.2.7.3.698 084.8 [id number] [facility] 2023-06-17 00:00:00 2023-06-17 15:26:53 Telephone Carlos Gomes 1.2.840.1 36153.1.1 3.104.2.7 .3.984875 .8 [id number] [facility] 2023-06-13 00:00:00 2023-06-13 18:14:25 Nurse Triage Pia Pitt 1.2.840.1 80424.1.1 3.104.2.7 .3.632230 .8 [id number] [facility] 2023-06-12 13:09:00 2023-06-12 19:49:00 Outpatient R CARLOS GOMES [facility] SUU [id number] [facility] 2023-06-12 13:09:00 2023-06-12 19:49:00 Hospital Encounter Rosey Carlos 1.2.840.1 34252.1.1 3.104.2.7 .3.153395 .8 [id number] [facility] 2023-06-12 00:00:00 2023-06-12 18:49:16 Telephone Carlos Gomes 1.2.840.1 53349.1.1 3.104.2.7 .3.312355 .8 [id number] [facility] 2023-06-12 16:50:00 2023-06-12 18:10:00 Anesthesia Event Jenaro Padilla Demetria 1.2.840.1 59896.1.1 3.104.2.7 .3.240379 .8 [id number] [facility] 2023-06-12 13:53:00 2023-06-12 15:36:00 Surgery Carlos Gomes 1.2.840.1 24170.1.1 3.104.2.7 .3.885171 .8 [id number] [facility] 2023-06-09 00:00:00 2023-06-09 00:00:00 Telephone Carlos Gomes [facility] 1.2840.114 350.1.13.10 4.2.7.2.686 [id number] [facility] 2023-06-05 00:00:00 2023-06-05 00:00:00 Patient Secure Msg Doctor Unassigned, [place] [facility] 1.2840.114 350.1.13.10 4.2.7.2.686 [id number] [facility] 2023-06-04 17:18:00 2023-06-04 22:33:00 Emergency X LUIS COLON [facility] ERT [id number] [facility] 2023-06-04 17:18:00 2023-06-04 22:33:00 Emergency Jase Flores Katherine [facility] ([facility]) 1.2.840.114 350.1.13.10 4.2.7.2.686 [id number] [facility] 2023-06-04 00:00:00 2023-06-04 00:00:00 Telephone [facility] [place] [facility] 1.2.840.114 350.1.13.10 4.2.7.2.686 [id number] [facility] 2023-06-04 00:00:00 2023-06-04 00:00:00 Transition of Care Neo Farrell 1.2.840.114 350.1.13.10 4.2.7.2.686 [id number] [facility] 2023-06-01 11:14:00 2023-06-03 16:45:00 Inpatient X JOSE SANCHEZ [facility] REA [id number] [facility] 2023-06-01 11:14:00 2023-06-03 16:45:00 Hospital Encounter Rc Peng, Calvin Sanchez [facility] ([facility]) 1.2.840.114 350.1.13.10 4.2.7.2.686 [id number] [facility] 2023-06-02 11:45:00 2023-06-02 13:50:[address] [facility] [place] [facility] 1.2.840.114 350.1.13.10 4.2.7.2.686 [id number] [facility] 2023-06-02 00:00:00 2023-06-02 00:00:00 Telephone Carlos Gomes [facility] 1.2.840.114 350.1.13.10 4.2.7.2.686 [id number] [facility] 2023-05-30 02:52:00 2023-05-30 05:02:00 Emergency EM Edwin Mathews HCACL AERS [id number] [facility] 2023-05-22 00:00:00 2023-05-22 00:00:00 Outpatient Yerramadha_ M_HOU_MD VFP VFP [id number] [facility] 2023-05-16 00:00:00 2023-05-16 00:00:00 Outpatient Simpson_C_H OU_MD VFP VFP [id number] [facility] 2023-05-08 00:00:00 2023-05-08 00:00:00 Outpatient Simpson_C_H OU_MD VFP VFP [id number] [facility] 2023-05-02 00:00:00 2023-05-02 00:00:00 Outpatient Simpson_C_H OU_MD VFP VFP [id number] [facility] 2023-05-02 00:00:00 2023-05-02 00:00:00 Nataliya Newby MD: [address] [facility] [address], [place] [address] , Ph. VFP [place] [facility] [place] - VM_HOU_Clea jhonathan Acosta [id number] [facility] 2023-04-11 00:00:00 2023-04-11 00:00:00 Outpatient Simpson_C_H OU_MD VFP VFP [id number] [facility] 2023-04-01 00:00:00 2023-04-01 00:00:00 Outpatient Simpson_C_H OU_MD VFP VFP [id number] [facility] 2023-03-20 07:34:00 2023-03-20 07:34:00 Outpatient Jovana Parnell [facility] [id number] [facility] 2023-03-06 00:00:00 2023-03-06 00:00:00 Outpatient Simpson_C_H OU_MD VFP VFP [id number] [facility] 2023-03-02 00:00:00 2023-03-02 00:00:00 Outpatient Simpson_C_H OU_MD VFP VFP [id number] [facility] 2023-01-29 00:00:00 2023-01-29 00:00:00 Outpatient Simpson_C_H OU_MD VFP VFP [id number] [facility] 2023-01-29 00:00:00 2023-01-29 00:00:00 Outpatient Simpson_C_H OU_MD VFP VFP [id number] [facility] 2023-01-23 00:00:00 2023-01-23 00:00:00 Outpatient Simpson_C_H OU_MD VFP VFP [id number] [facility] 2023-01-23 00:00:00 2023-01-23 00:00:00 Jovana Weber MD: [address] [place] [address] [address], [address], [facility] [place] [address] , Ph. VFP [place] - [facility] - [place] - VM_HOU_NManisha Yousif (VALDEMAR) [id number] [facility] 2023-01-20 00:00:00 2023-01-20 00:00:00 Outpatient Simpson_C_H OU_MD VFP VFP [id number] [facility] 2022-12-25 00:00:00 2022-12-25 00:00:00 Outpatient Simpson_C_H OU_MD VFP VFP [id number] [facility] 2022-12-25 00:00:00 2022-12-25 00:00:00 Outpatient Simpson_C_H OU_MD VFP VFP [id number] [facility] 2022-11-25 00:00:00 2022-11-25 00:00:00 Outpatient Simpson_C_H OU_MD VFP VFP [id number] [facility] 2022-11-08 00:00:00 2022-11-08 00:00:00 Outpatient Simpson_C_H OU_MD VFP VFP [id number] [facility] 2022-11-08 00:00:00 2022-11-08 00:00:00 Outpatient Simpson_C_H OU_MD VFP VFP [id number] [facility] 2022-10-04 00:00:00 2022-10-04 00:00:00 Outpatient Simpson_C_H OU_MD VFP VFP [id number] [facility] 2022-10-04 00:00:00 2022-10-04 00:00:00 Outpatient Simpson_C_H OU_MD VFP VFP [id number] [facility] 2022-10-04 00:00:00 2022-10-04 00:00:00 Outpatient Simpson_C_H OU_MD VFP VFP [id number] [facility] 2022-10-04 00:00:00 2022-10-04 00:00:00 Outpatient Simpson_C_H OU_MD VFP VFP [id number] [facility] 2022-10-04 00:00:00 2022-10-04 00:00:00 Outpatient Simpson_C_H OU_MD VFP VFP [id number] [facility] 2022-10-04 00:00:00 2022-10-04 00:00:00 Outpatient Simpson_C_H OU_MD VFP VFP [id number] [facility] 2022-10-04 00:00:00 2022-10-04 00:00:00 Outpatient Simpson_C_H OU_MD VFP VFP [id number] [facility] 2022-10-04 00:00:00 2022-10-04 00:00:00 Outpatient Simpson_C_H OU_MD VFP VFP [id number] [facility] 2022-08-30 00:00:00 2022-08-30 00:00:00 Outpatient Simpson_C VFP VFP [id number] [facility] 2022-08-30 00:00:00 2022-08-30 00:00:00 Outpatient Simpson_C_H OU_MD VFP VFP [id number] [facility] 2022-08-29 00:00:00 2022-08-29 00:00:00 Outpatient Simpson_C VFP VFP [id number] [facility] 2022-08-23 00:00:00 2022-08-23 00:00:00 Outpatient Simpson_C VFP VFP [id number] [facility] 2022-08-07 00:00:00 2022-08-07 00:00:00 Outpatient Simpson_C VFP VFP [id number] [facility] 2022-08-06 00:00:00 2022-08-06 00:00:00 Outpatient Simpson_C VFP VFP [id number] [facility] 2022-07-29 00:00:00 2022-07-29 00:00:00 Outpatient Simpson_C VFP VFP [id number] [facility] 2022-07-29 00:00:00 2022-07-29 00:00:00 Outpatient Simpson_C VFP VFP [id number] [facility] 2022-07-12 00:00:00 2022-07-12 00:00:00 Outpatient Simpson_C VFP VFP [id number] [facility] 2022-06-11 00:00:00 2022-06-11 00:00:00 Outpatient Simpson_C VFP VFP [id number] [facility] 2022-06-10 00:00:00 2022-06-10 00:00:00 Outpatient Simpson_C VFP VFP [id number] [facility] 2022-06-07 00:00:2022-06-07 00:00:00 Outpatient Simpson_C VFP VFP [id number] [facility] 2022-05-30 00:00:00 2022-05-30 00:00:00 Outpatient Simpson_C VFP VFP [id number] [facility] 2022-05-30 00:00:00 2022-05-30 00:00:00 Jenaro Ying NUTRITION SPECIALIST: [address], [address], [facility] [place] [address] , Ph. VFP [place] - [facility] - [place] - TRISTAN_ASIF Yousif ([facility]) [id number] [facility] 2022-05-14 00:00:00 2022-05-14 00:00:00 Outpatient Simpson_C VFP VFP [id number] [facility] 2022-05-14 00:00:00 2022-05-14 00:00:00 Outpatient Simpson_C VFP VFP [id number] [facility] 2022-05-03 00:00:00 2022-05-03 00:00:00 Outpatient Simpson_C VFP VFP [id number] [facility] 2022-04-25 00:00:00 2022-04-25 00:00:00 Outpatient Simpson_C VFP VFP [id number] [facility] 2022-04-25 00:00:00 2022-04-25 00:00:00 Jenaro Ying, NUTRITION SPECIALIST: [address], [address], [place] [address] , Ph. VFP [place] - [facility] - [place] - VM_ASIF Yousif ([facility]) [id number] [facility] 2022-04-23 00:00:00 2022-04-23 00:00:00 Outpatient Simpson_C VFP VFP [id number] [facility] 2022-04-22 00:00:00 2022-04-22 00:00:00 Outpatient Simpson_C VFP VFP [id number] [facility] 2022-04-04 00:00:00 2022-04-04 00:00:00 Outpatient Simpson_C VFP VFP [id number] [facility] 2022-04-04 00:00:00 2022-04-04 00:00:00 Jenaro Ying, NUTRITION SPECIALIST: [address], [address], [facility] [place] [address] , Ph. VFP [place] - [facility] - [place] - VM_ASIF Yousif ([facility]) [id number] [facility] 2022-03-30 00:00:00 2022-03-30 00:00:00 Outpatient Simpson_C VFP VFP [id number] [facility] 2022-03-28 00:00:00 2022-03-28 00:00:00 Outpatient Simpson_C VFP VFP [id number] [facility] 2022-03-28 00:00:00 2022-03-28 00:00:00 Jenaro Ying, NUTRITION SPECIALIST: [address], [address], [facility] [place] [address] , Ph. VFP [facility] - [place] - VM_ASIF Yousif ([facility]) [id number] [facility] 2021-11-28 00:00:00 2021-11-28 00:00:00 Outpatient Simpson_C VFP VFP [id number] [facility] 2021-11-16 00:00:00 2021-11-16 00:00:00 Outpatient Simpson_C VFP VFP [id number] [facility] 2021-10-26 00:00:00 2021-10-26 00:00:00 Orders Only Doctor Unassigned, [place] [facility] 1.2.840.114 350.1.13.10 4.2.7.2.686 [id number] [facility] 2021-10-24 00:00:00 2021-10-24 00:00:00 Outpatient Simpson_C VFP VFP [id number] [facility] 2021-10-20 00:00:00 2021-10-20 00:00:00 Outpatient Simpson_C VFP VFP [id number] [facility] 2021-10-18 00:00:00 2021-10-18 00:00:00 Outpatient Simpson_C VFP VFP [id number] [facility] 2021-10-12 00:00:00 2021-10-12 00:00:00 Outpatient Simpson_C VFP VFP [id number] [facility] 2021-10-11 00:00:00 2021-10-11 00:00:00 Outpatient Simpson_C VFP VFP [id number] [facility] 2021-10-11 00:00:00 2021-10-11 00:00:00 Mary Osullivan, NUTRITION SPECIALIST: [address] [facility] [place] [address] , Ph. VFP [place] - [facility] - TRISTAN_Haley orozco (WAG) [id number] [facility] 2021-09-30 00:00:00 2021-09-30 00:00:00 Outpatient Simpson_C VFP VFP [id number] [facility] 2021-09-26 22:51:00 2021-09-27 09:50:00 Emergency AISHA COHEN [facility] ERT [id number] [facility] 2021-09-26 22:51:00 2021-09-27 09:50:00 Emergency Jayden Knight Kent [facility] ([facility]) 1.2.840.114 350.1.13.10 4.2.7.2.686 [id number] [facility] 2021-09-09 12:44:00 2021-09-09 12:44:00 Outpatient Simpson_C VFP VFP [id number] [facility] 2021-08-17 02:28:2021-08-17 02:28:00 Outpatient Simpson_C VFP VFP [id number] [facility] 2021-08-15 10:00:00 2021-08-15 10:00:00 Outpatient Jhonathan GAMING [facility] [id number] [facility] 2021-08-07 00:00:00 2021-08-07 00:00:00 Telephone Bob Min [facility] 1.2.840.114 350.1.13.10 4.2.7.2.686 [id number] [facility] 2021-07-21 02:06:00 2021-07-21 02:06:00 Outpatient Simpson_C VFP VFP [id number] [facility] 2021-06-17 05:29:00 2021-06-17 05:29:00 Outpatient Simpson_C VFP VFP [id number] [facility] 2021-06-17 05:29:00 2021-06-17 05:29:00 Outpatient Simpson_C VFP VFP [id number] [facility] 2021-06-16 02:26:00 2021-06-16 02:26:00 Outpatient Simpson_C VFP VFP [id number] [facility] 2021-06-14 05:22:00 2021-06-14 05:22:00 Outpatient Simpson_C VFP VFP [id number] [facility] 2021-06-13 09:29:00 2021-06-13 09:29:00 Outpatient Simpson_C VFP VFP [id number] [facility] 2021-06-13 03:42:00 2021-06-13 03:42:00 Outpatient VFP VFP [id number] [facility] 2021-06-13 00:00:00 2021-06-13 00:00:00 Davy Manley MD: [id number] [facility], [facility], [place] [address] , Ph. VFP [place] - [facility] - VM_Haley orozco (WAG) [id number] [facility] 2021-06-10 03:08:00 2021-06-10 03:08:00 Outpatient Simpson_C VFP VFP [id number] [facility] 2021-06-10 03:08:00 2021-06-10 03:08:00 Outpatient Simpson_C VFP VFP [id number] [facility] 2021-06-08 07:13:00 2021-06-08 07:13:00 Outpatient Simpson_C VFP VFP [id number] [facility] 2021-06-06 05:32:00 2021-06-06 05:32:00 Outpatient Simpson_C VFP VFP [id number] [facility] 2021-05-12 03:08:00 2021-05-12 03:08:00 Outpatient Simpson_C VFP VFP [id number] [facility] 2021-05-01 10:30:00 2021-05-01 10:30:00 Outpatient R [facility] [id number] [facility] 2021-04-23 08:40:00 2021-04-23 08:40:00 Outpatient Jhonathan [facility] [id number] [facility] 2021-04-01 04:08:00 2021-04-01 04:08:00 Outpatient Simpson_C VFP VFP [id number] [facility] 2021-04-01 04:08:00 2021-04-01 04:08:00 Outpatient Simpson_C VFP VFP [id number] [facility] 2021-03-29 10:38:00 2021-03-29 10:38:00 Outpatient Simpson_C VFP VFP [id number] [facility] 2021-03-26 03:43:00 2021-03-26 03:43:00 Outpatient Simpson_C VFP VFP [id number] [facility] 2021-03-22 11:26:00 2021-03-22 11:26:00 Outpatient Simpson_C VFP VFP [id number] [facility] 2021-03-22 00:00:00 2021-03-22 00:00:00 Davy Manley MD: [address], [address], [place] [address] , Ph. VFP [place] - [facility] - VM_Haley orozco (WAG) [id number] [facility] 2021-03-20 08:21:00 2021-03-20 08:21:00 Outpatient Simpson_C VFP VFP [id number] [facility] 2021-03-19 01:56:00 2021-03-19 01:56:00 Outpatient VFP VFP [id number] [facility] 2021-02-20 09:00:00 2021-02-20 09:00:00 Outpatient R [facility] [id number] [facility] 2021-01-29 09:20:00 2021-01-29 09:20:00 Outpatient R [facility] [id number] [facility] 2021-01-29 00:00:00 2021-01-29 00:00:00 Telephone Bob Min [facility] .114 350.1.13.10 [id number] [id number] [facility] 2021-01-29 00:00:00 2021-01-29 00:00:00 Patient Secure Msg Doctor Unassigned, [place] [facility] [place] [id number] [id number] [id number] [id number] [facility] 2021-01-26 13:15:00 2021-01-26 13:15:00 Outpatient R UNKNOWN, [facility] [id number] [facility] 2021-01-26 13:15:00 2021-01-26 13:15:00 Outpatient [facility] [id number] [facility] 2021-01-16 10:12:18 2021-01-16 10:53:24 Office Visit Francisco Gaming [facility] [id number] [id number] [id number] [id number] [facility] 2021-01-16 10:00:00 2021-01-16 10:53:24 Outpatient FRANCISCO [facility] [id number] [facility] 2021-01-16 10:00:00 2021-01-16 10:00:00 Outpatient FRANCISCO W[facility] [id number] [facility] 2021-01-16 00:00:00 2021-01-16 00:00:00 Patient Outreach Zahraa Soliz [facility] [id number] 350.1.13.10 [id number] [id number] [facility] 2021-01-16 00:00:00 2021-01-16 00:00:00 Patient Outreach Zahraa Soliz [facility] [id number] 350.1.13.10 4.2.7.2.686 [id number] [facility] 2020-12-29 09:26:19 2020-12-29 10:17:16 Office Visit Bob Min [facility] 1.2.840.114 350.1.13.10 4.2.7.2.686 [id number] [id number] [facility] 2020-12-29 09:20:00 2020-12-29 09:20:00 Outpatient [facility] [id number] [facility] 2020-12-26 00:00:00 2020-12-26 00:00:00 Telephone Bob Min [facility] 1.2.840.114 350.1.13.10 4.2.7.2.686 [id number] [id number] [facility] 2020-12-21 16:14:57 2020-12-21 16:29:57 Geological Technician Visit Vtc-Lab Bob Min [facility] 1.2.840.114 350.1.13.10 4.2.7.2.686 [id number] [facility] 2020-12-21 08:36:11 2020-12-21 09:33:21 [facility] 1.2.840.114 350.1.13.10 4.2.7.2.686 [id number] 044 [id number] [facility] 2020-12-21 08:40:00 2020-12-21 08:40:00 Outpatient R [facility] [id number] [facility] 2020-12-20 10:30:00 2020-12-20 10:30:00 [facility] [id number] [facility] 2020-12-20 00:00:00 2020-12-20 00:00:00 Telephone Bob Min [facility] 1.0.114 350.1.13.10 4.2.7.2.686 [id number] [id number] [facility] 2020-12-18 00:00:00 2020-12-18 00:00:00 Telephone Bob Min [facility] 1.2.840.114 350.1.13.10 4.2.7.2.686 [id number] [id number] [facility] 2020-12-14 00:00:00 2020-12-14 00:00:00 Patient Secure Abdelrahman Cheng [facility] 1.84.114 350.1.13.10 4.2.7.2.686 [id number] [facility] 2020-12-13 08:47:34 2020-12-13 09:02:34 Geological Technician Visit [facility]Samuel Ruiz [facility] 1..114 350.1.13.10 4.2.7.2.686 [id number] [facility] 2020-12-13 08:45:00 2020-12-13 08:45:00 Outpatient [facility] [id number] [facility] 2020-12-11 00:00:00 2020-12-11 00:00:00 Bob Henderson [facility] 1..114 350.1.13.10 4.2.7.2.686 [id number] 044 [id number] [facility] 2020-12-08 08:25:50 2020-12-08 08:40:50 Office Visit Yuniel Thurman [facility] 1..114 350.1.13.10 4.2.7.2.686 [id number] [facility] 2020-12-08 08:15:00 2020-12-08 08:15:00 [facility] [id number] [facility] 2020-12-06 09:45:00 2020-12-06 10:45:00 [facility] 1.2.840.114 350.1.13.10 4.2.7.2.686 [id number] [facility] 2020-12-06 09:15:00 2020-12-06 09:15:00 [facility] [id number] [facility] 2020-12-06 00:00:00 2020-12-06 00:00:00 Telephone Bob [facility] 1..114 350.1.13.10 4.2.7.2.686 [id number] [id number] [facility] 2020-12-06 00:00:00 2020-12-06 00:00:00 Orders Only Doctor Unassigned, [place] [facility] 1.840.114 350.1.13.10 4.2.7.2.686 [id number] [facility] 2020-12-04 15:20:00 2020-12-04 23:59:00 Hospital Encounter [facility] Bob [facility] [place] [facility] 1.0.114 350.1.13.10 4.2.7.2.686 [id number] [facility] 2020-12-04 16:01:08 2020-12-04 16:16:08 Laboratory Only Only, Lcc Test Unknown, Attending [facility] 1.840.114 350.1.13.10 4.2.7.2.686 [id number] [facility] 2020-12-04 14:45:00 2020-12-04 15:19:00 Hospital Encounter [facility] [place] [facility] 1.840.114 350.1.13.10 4.2.7.2.686 [id number] [facility] 2020-12-04 00:00:00 2020-12-04 00:00:00 Outpatient Jhonathan [facility] [id number] [facility] 2020-12-01 11:13:31 2020-12-01 12:40:21 Office Visit Navdeep [facility] 1.2840.114 350.1.13.10 4.2.7.2.686 [id number] [facility] 2020-12-01 11:13:31 2020-12-01 12:40:21 [facility] 1.840.114 350.1.13.10 4.2.7.2.686 [id number] [facility] 2020-12-01 11:15:00 2020-12-01 11:15:00 Outpatient Jhonathan BACK [facility] [id number] [facility] 2020-12-01 08:34:32 2020-12-01 09:04:32 Office Visit Francisco Gaming [facility] 1.840.114 350.1.13.10 4.2.7.2.686 [id number] [facility] 2020-12-01 08:34:32 2020-12-01 09:04:32 Office Visit Francisco [place] [facility] 1.840.114 350.1.13.10 4.2.7.2.686 [id number] [facility] 2020-12-01 08:30:00 2020-12-01 08:30:00 Outpatient [facility] [id number] [facility] 2020-12-01 00:00:00 2020-12-01 00:00:00 Orders Only Doctor Unassigned, [place] [facility] 1.2.840.114 350.1.13.10 4.2.7.2.686 [id number] [facility] 2020-11-29 09:06:46 2020-11-29 09:50:07 Office Visit Min Bob [facility] 1.2.840.114 350.1.13.10 4.2.7.2.686 [id number] 044 [id number] [facility] 2020-11-29 09:06:46 2020-11-29 09:50:[address] [facility] 1.2.840.114 350.1.13.10 4.2.7.2.686 [id number] [facility] 2020-11-29 09:00:00 2020-11-29 09:00:00 Outpatient R [facility] [id number] [facility] 2020-11-29 00:00:00 2020-11-29 00:00:[address] [facility] 1.2.840.114 350.1.13.10 4.2.7.2.686 [id number] [facility] 2020-11-28 00:00:00 2020-11-28 00:00:[address] [facility] 1.2.840.114 350.1.13.10 4.2.7.2.686 [id number] [facility] 2020-11-28 00:00:00 2020-11-28 00:00:[address] [facility] 1.2.840.114 350.1.13.10 4.2.7.2.686 [id number] [facility] 2020-11-28 00:00:00 2020-11-28 00:00:00 Telephone Bob Min [facility] 1.2.840.114 350.1.13.10 4.2.7.2.686 [id number] [facility] 2020-11-28 00:00:00 2020-11-28 00:00:00 [facility] 1.2.840.114 350.1.13.10 4.2.7.2.686 [id number] [facility] 2020-11-27 13:12:13 2020-11-27 14:16:37 Office Visit Yuniel Thurman [facility] 1.2.840.114 350.1.13.10 4.2.7.2.686 [id number] [facility] 2020-11-27 13:12:13 2020-11-27 14:16:37 Office Visit Yuniel Thurman [facility] 1.2.840.114 350.1.13.10 4.2.7.2.686 [id number] [facility] 2020-11-27 13:00:00 2020-11-27 13:00:00 Outpatient R [facility] [id number] [facility] 2020-11-24 00:00:00 2020-11-24 00:00:00 Telephone Pako Bob [facility] 1.2.840.114 350.1.13.10 4.2.7.2.686 [id number] [facility] 2020-11-24 00:00:00 2020-11-24 00:00:00 Telephone Pako Bob [facility] 1.2.840.114 350.1.13.10 4.2.7.2.686 [id number] [id number] [facility] 2020-11-23 00:00:00 2020-11-23 00:00:00 Telephone Bob Min [facility] 1.2.840.114 350.1.13.10 4.2.7.2.686 [id number] [facility] 2020-11-23 00:00:00 2020-11-23 00:00:00 [facility] 1.2.840.114 350.1.13.10 4.2.7.2.686 [id number] [facility] 2020-11-22 11:21:37 2020-11-22 11:36:37 Geological Technician Visit Vtc-Lab Pako [facility] 1.2.840.114 350.1.13.10 4.2.7.2.686 [id number] [facility] 2020-11-22 11:21:37 2020-11-22 11:36:37 Geological Technician Visit [facility]tc-Lab [facility] 1.2.840.114 350.1.13.10 4.2.7.2.686 [id number] [facility] 2020-11-22 10:27:09 2020-11-22 10:47:09 Office Visit Min, [facility] 1.2.840.114 350.1.13.10 4.2.7.2.686 [id number] [id number] [facility] 2020-11-22 10:27:09 2020-11-22 10:47:09 [facility] 1.2.840.114 350.1.13.10 4.2.7.2.686 [id number] [id number] [facility] 2020-11-22 10:40:00 2020-11-22 10:40:00 Outpatient R [facility] [id number] [facility] 2020-11-22 00:00:00 2020-11-22 00:00:00 Orders Only Doctor Unassigned, [place] [facility] 1.2.840.114 350.1.13.10 4.2.7.2.686 [id number] [facility] 2020-11-22 00:00:00 2020-11-22 00:00:00 Orders Only Doctor Unassigned, [place] [facility] 1.2.840.114 350.1.13.10 4.2.7.2.686 [id number] [facility] 2020-11-17 12:22:00 2020-11-17 17:28:00 [facility] 1.2.840.114 350.1.13.10 4.2.7.2.686 [id number] [facility] 2020-11-17 12:22:00 2020-11-17 17:28:00 [facility] 1.2.840.114 350.1.13.10 4.2.7.2.686 [id number] [facility] 2020-11-16 21:09:00 2020-11-17 00:08:00 Emergency Giovanni Levine [facility] ([facility]) 1.2.840.114 350.1.13.10 4.2.7.2.686 [id number] [facility] 2020-11-16 21:09:00 2020-11-17 00:08:00 Emergency Giovanni Levine [facility] ([facility]) 1.2.840.114 350.1.13.10 4.2.7.2.686 [id number] [facility] 2020-11-17 00:00:00 2020-11-17 00:00:00 Nurse Triage [facility] 1.2.840.114 350.1.13.10 4.2.7.2.686 [id number] [facility] 2020-11-17 00:00:00 2020-11-17 00:00:00 Nurse Triage [facility] 1.2.840.114 350.1.13.10 4.2.7.2.686 [id number] [facility] 2020-03-13 09:45:00 2020-03-13 09:45:00 Outpatient [facility] [id number] [facility] Results Test Description Test Time Test Comments Results Result Co mments Source [facility] [id number] 23:46:07* Test Item Value Reference Range Interpretation Comme nts FREE T4 (test code = 9123951778) 0.96 0.78-2.20 Lab Interpretation (test cod e = 49437-3) Normal [facility]villeThyroid Stimulating [id number] 20:15:52 * Test Item Value Reference Range Interpretation Comme nts TSH (test code = 9904066201) 8.75 0.45-4.70 H Lab Interpretation (test cod e = 31082-8) Abnormal [facility]villeLipid Panel (07626)(Total Cholesterol, Triglycerides, HDL)2023-09-10 19:47:06* Test Item Value Reference Range Interpretation Comme nts CHOL (test code = 3622828945) 100 mg/dL 120-200 L HDL (test code = 1790880786) 47 mg/dL >=50 L HDLC RATIO (test code = 3249640768) 2.1 <=4.5 TRIG (test code = 3045294887) 65 mg/dL 30-170 LDL CHOL (test code = 43310-6) 40 mg/dL <=160 VLDL (test code = 3124485757) 13 mg/dL 5-60 Lab Interpretation (test cod e = 89514-2) Abnormal [facility]. Metabolic Panel (99636)2023-09-10 19:46:45* Test Item Value Reference Range Interpretation Comme nts NA (test code = 7746968662) 143 mmol/L 135-145 K (test code = 3871494123) 3.9 mmol/L 3.5-5.0 CL (test code = 2254439448) 105 mmol/L 98-108 CO2 TOTAL (test code = 0945224528) 30 mmol/L 23-31 AGAP (test code = 5962241111) 8 2-16 BUN (test code = 7234378835) 16 mg/dL 7-23 GLUCOSE (test code = 8629683112) 91 mg/dL 70-110 CREATININE (test code = 2160-0) 0.88 mg/dL 0.50-1.04 TOTAL BILI (test code = 0870367639) 0.6 mg/dL 0.1-1.1 CALCIUM (test code = 3911430338) 10.5 mg/dL 8.6-10.6 T PROTEIN (test code = 3165204486) 6.5 g/dL 6.3-8.2 ALBUMIN (test code = 2010689933) 4.0 g/dL 3.5-5.0 ALK PHOS (test code = 2432315675) 159 U/L 34-122 H ALTv (test code = 1742-6) 74 U/L 5-35 H AST(SGOT) (test code = 8409769421) 45 U/L 13-40 H eGFR (test code = 66421-4) 75.8 mL/min/1.73m2 CKD-EPI eGFR (2020). Assuming creatinine has been stable day-to-day for at least three months, the eGFR indicates Category G2 (60 - 89 mL/min/1.73 m2) Lab Interpretation (test code = 96987-1) Abnormal [facility] with [id number] 19:46:05* Test Item Value Reference Range Interpretation Comme nts WBC (test code = 6690-2) 5.62 4.30-11.10 RBC (test code = 789-8) 3.92 3.93-5.25 L HGB (test code = 718-7) 12.1 g/dL 11.6-15.0 HCT (test code = 4544-3) 37.4 % 35.7-45.2 MCV (test code = 787-2) 95.4 fL 80.6-95.5 MCH (test code = 785-6) 30.9 pg 25.9-32.8 MCHC (test code = 786-4) 32.4 g/dL 31.6-35.1 RDW-SD (test code = 90596-7) 46.5 fL 39.0-49.9 RDW-CV (test code = 788-0) 13.2 % 12.0-15.5 PLT (test code = 777-3) 235 166-358 MPV (test code = 98646-0) 11.6 fL 9.5-12.9 NRBC/100 WBC (test code = 2306194047) 0.0 0.0-10.0 NRBC x10^3 (test code = 3084327752) See_Comment [Automated messa ge] The system which generated this result transmitted reference range: 10*3/?L. The reference range was not used to interpret this result as normal/abnormal. GRAN MAT (NEUT) % (test code = 770-8) 68.6 % IMM GRAN % (test code = 7230605371) 0.20 % LYMPH % (test code = 736-9) 19.4 % MONO % (test code = 5905-5) 8.2 % EOS % (test code = 713-8) 2.5 % BASO % (test code = 706-2) 1.1 % GRAN MAT x10^3(ANC) (test code = 2000235672) 3.86 10*3/uL 1.88-7.09 IMM GRAN x10^3 (test code = 1091903241) 0.00-0.06 LYMPH x10^3 (test code = 731-0) 1.09 10*3/uL 1.32-3.29 L MONO x10^3 (test code = 742-7) 0.46 10*3/uL 0.33-0.92 EOS x10^3 (test code = 711-2) 0.14 10*3/uL 0.03-0.39 BASO x10^3 (test code = 704-7) 0.06 10*3/uL 0.01-0.07 Lab Interpretation (test code = 58113-5) Abnormal [facility]+ VW [id number] 02:24:03EXAM: XR HAND 3+ VW RIGHT HISTORY: 58 years old Female; right thumb pain COMPARISON: None FINDINGS:Radiographs of the right hand demonstrate soft tissue swelling about thethumb without underlying acute fracture. 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.[facility]XR RIBS 3 VW [id number] 02:22:34EXAM: XR RIBS 3 VW LEFT HISTORY: 58 years -old Female with left rib pain COMPARISON: None.[facility] RIBS 3 VW [id number] 02:22:34EXAM: XR RIBS 3 VW LEFT HISTORY: 58 years -old Female with left rib pain COMPARISON: None.[facility]villeCT ABDOMEN PELVIS WO [id number] 16:10:39EXAM: CT scan of the abdomen and pelvis without contrast HISTORY: Ureteral stone TECHNIQUE:3.75 mm axial images are obtained from diaphragmatic domes tosymphysis pubis without oral or intravenous contrast. Sagittal and coronalreformation is carried out. COMPARISON: 06/01/2023 Radiation Dose: DLP of 442 mGy-cm. FINDINGS: Lung bases are clear. No pleural effusion is seen. Heart size is normal. Liveris grossly normal in size shape and appearance. Gallbladder has beenremoved. Common bile duct is slightly dilated likely representing reservoirphenomenon. Pancreas is grossly normal. No ductal dilation is seen. Spleen is normal in size. Adrenal glands are normal. Left kidney is normal in size and shape. Small calcification in the kidneyis probably vascular in nature. Also seen is a hyperdense focus in thesuperior pole measuring approximately 1.5 cm in size Right kidney is enlarged. A double-J ur eteral stent is noted with theproximal end of the stent located in the upper pole of the right kidney andthe distal end located within the urinary bladder. Mild hydronephrosis ispresent. Also seen ismild dilation of the proximal ureter. No definitestones are identified adjacent to the stent. Urinary bladder iswell- distended and appears to be normal. Abdominal aorta is normal in caliber. Scattered atheroscleroticcalcifications are seen. There is no free fluid or free air in the abdomen.No enlarged lymph nodes are seen in the retroperitoneum. A few nonspecificmesenteric lymph nodes are seen. Ahiatal hernia is present. Large volume of stool is seen in the colon.There is no evidence of bowel obstruction. Uterus is removed. There is no free fluid in the pelvis. Multiplephleboliths are noted in the pelvis. Dilated fluid-filled structure ispresent adjacent to the urinary bladder on the rightside measuringapproximately 5.0 x 4.5 cm with suture line. There is no suspicious abnormality of the bones. Generalized osteopenia isnoted.[facility]villeREFERRAL- REQUEST/[id number] 21:13:52Ordered by an unspecified provider.[facility] StephenvilleFL TIME OR (NON-REPORTABLE)2023-06-17 14:39:42These images do not require a Radiology diagnostic report.[facility] StephenvilleUrine Culture 2023-06-14 11:52:56* Test Item Value Reference Range Interpretation Comme nts URINE CULTURE (test code = 630-4) No aerobic growth (< 1000 CFU/mL) [facility] StephenvilleIntubation2024-03-28 21:52:00Jenaro Padilla MD ? ? 06/12/2023 ?5:14 PMIntubationDate/Time: 06/12/2023 4:52 PMUrgency: elective Airway not difficult General Information and Staff Patient location during procedure: ORPerformed: anesthesiologist Performed by: Jenaro Padilla MDAuthorized by: Jenaro Padilla MD ? Indications and Patient ConditionIndications for airway management: anesthesiaSpontaneous Ventilation: absentSedation level: deepPreoxygenated: yesPatient position: sniffingMILS not maintained throughoutMask difficultyassessment: 0 - not attempted Final Airway DetailsFinal airway type: supraglottic airway Successfulairway: SupremeSize 4 Number of attempts at approach: 1Ventilation between attempts: noneUnCh[facility] ([facility]2023-06-12 18:36:22* Test Item Value Reference Range Interpretation Comme nts POCT GLU (test code = 8789717311) 86 mg/dL 70-110 Lab Interpretation (test cod e = 92857-7) Normal [facility] GLUCOSE (AUTOMATED)2023-06-12 18:36:22* Test Item Value Reference Range Interpretation Comme nts POCT GLU (test code = 6990028831) 86 mg/dL 70-110 Lab Interpretation (test cod e = 75047-4) Normal [facility] GLUCOSE (AUTOMATED)2023-06-12 18:36:22* Test Item Value Reference Range Interpretation Comme nts POCT GLU (test code = 6026166059) 86 mg/dL 70-110 Lab Interpretation (test cod e = 43207-3) Normal [facility] METABOLIC PANEL (85211)2023-06-05 01:00:22* Test Item Value Reference Range Interpretation Comme nts NA (test code = 8479986675) 137 mmol/L 135-145 K (test code = 4435320367) 3.9 mmol/L 3.5-5.0 CL (test code = 7953767513) 101 mmol/L 98-108 CO2 TOTAL (test code = 7997075444) 28 mmol/L 23-31 AGAP (test code = 9828568420) 8 2-16 BUN (test code = 1889317580) 17 mg/dL 7-23 GLUCOSE (test code = 4186431727) 62 mg/dL 70-110 L CREATININE (test code = 2160-0) 1.04 mg/dL 0.50-1.04 TOTAL BILI (test code = 3567305965) 0.5 mg/dL 0.1-1.1 CALCIUM (test code = 2151912985) 9.2 mg/dL 8.6-10.6 T PROTEIN (test code = 5717411061) 6.8 g/dL 6.3-8.2 ALBUMIN (test code = 6276083291) 3.8 g/dL 3.5-5.0 ALK PHOS (test code = 9178919173) 237 U/L 34-122 H ALTv (test code = 1742-6) 119 U/L 5-35 H AST(SGOT) (test code = 5581248554) 59 U/L 13-40 H eGFR (test code = 13838-3) 62.0 mL/min/1.73m2 CKD-EPI eGFR (2020). Assuming creatinine has been stable day-to-day for at least three months, the eGFR indicates Category G2 (60 - 89 mL/min/1.73 m2) Lab Interpretation (test code = 16629-2) Abnormal [facility] WITH [id number] 00:59:46* Test Item Value Reference Range Interpretation Comme nts WBC (test code = 6690-2) 9.34 4.30-11.10 RBC (test code = 789-8) 3.57 3.93-5.25 L HGB (test code = 718-7) 11.1 g/dL 11.6-15.0 L HCT (test code = 4544-3) 32.3 % 35.7-45.2 L MCV (test code = 787-2) 90.5 fL 80.6-95.5 MCH (test code = 785-6) 31.1 pg 25.9-32.8 MCHC (test code = 786-4) 34.4 g/dL 31.6-35.1 RDW-SD (test code = 86787-8) 41.2 fL 39.0-49.9 RDW-CV (test code = 788-0) 12.4 % 12.0-15.5 PLT (test code = 777-3) 306 166-358 MPV (test code = 95077-4) 10.5 fL 9.5-12.9 NRBC/100 WBC (test code = 7786099263) 0.0 0.0-10.0 NRBC x10^3 (test code = 5864348338) See_Comment [Automated messa ge] The system which generated this result transmitted reference range: 10*3/?L. The reference range was not used to interpret this result as normal/abnormal. GRAN MAT (NEUT) % (test code = 770-8) 66.4 % IMM GRAN % (test code = 8314210658) 0.50 % LYMPH % (test code = 736-9) 13.9 % MONO % (test code = 5905-5) 14.3 % EOS % (test code = 713-8) 4.4 % BASO % (test code = 706-2) 0.5 % GRAN MAT x10^3(ANC) (test code = 4344277960) 6.19 10*3/uL 1.88-7.09 IMM GRAN x10^3 (test code = 5153364986) 0.05 10*3/uL 0.00-0.06 LYMPH x10^3 (test code = 731-0) 1.30 10*3/uL 1.32-3.29 L MONO x10^3 (test code = 742-7) 1.34 10*3/uL 0.33-0.92 H EOS x10^3 (test code = 711-2) 0.41 10*3/uL 0.03-0.39 H BASO x10^3 (test code = 704-7) 0.05 10*3/uL 0.01-0.07 Lab Interpretation (test code = 63239-5) Abnormal [facility] GLUCOSE (AUTOMATED)2023-06-03 17:26:28* Test Item Value Reference Range Interpretation Comme nts POCT GLU (test code = 5923031271) 188 mg/dL 70-110 H Lab Interpretation (test cod e = 43390-2) Abnormal [facility] GLUCOSE (AUTOMATED)2023-06-03 17:26:28* Test Item Value Reference Range Interpretation Comme nts POCT GLU (test code = 1291939261) 188 mg/dL 70-110 H Lab Interpretation (test cod e = 60477-0) Abnormal [facility] GLUCOSE (AUTOMATED)2023-06-03 12:58:09* Test Item Value Reference Range Interpretation Comme nts POCT GLU (test code = 1816949170) 219 mg/dL 70-110 H Lab Interpretation (test cod e = 37260-4) Abnormal [facility] GLUCOSE (AUTOMATED)2023-06-03 12:58:09* Test Item Value Reference Range Interpretation Comme nts POCT GLU (test code = 9873971632) 219 mg/dL 70-110 H Lab Interpretation (test cod e = 12930-5) Abnormal [facility] GLUCOSE (AUTOMATED)2023-06-03 08:12:22* Test Item Value Reference Range Interpretation Comme nts POCT GLU (test code = 7020993732) 198 mg/dL 70-110 H Lab Interpretation (test cod e = 08215-3) Abnormal [facility] GLUCOSE (AUTOMATED)2023-06-03 08:12:22* Test Item Value Reference Range Interpretation Comme nts POCT GLU (test code = 0261541519) 198 mg/dL 70-110 H Lab Interpretation (test cod e = 33077-4) Abnormal [facility] GLUCOSE (AUTOMATED)2023-06-03 05:04:01* Test Item Value Reference Range Interpretation Comme nts POCT GLU (test code = 4002634981) 330 mg/dL 70-110 H Lab Interpretation (test cod e = 50825-1) Abnormal [facility] GLUCOSE (AUTOMATED)2023-06-03 05:04:01* Test Item Value Reference Range Interpretation Comme nts POCT GLU (test code = 1127973237) 330 mg/dL 70-110 H Lab Interpretation (test cod e = 53774-3) [facility] 01:51:02* Test Item Value Reference Range Interpretation Comme nts POCT GLU (test code = 1705188352) 418 mg/dL 70-110 H Lab Interpretation (test cod e = 46921-7) [facility] 01:51:02* Test Item Value Reference Range Interpretation Comme nts POCT GLU (test code = 3174129695) 418 mg/dL 70-110 H Lab Interpretation (test cod e = 55578-4) Abnormal [facility] GLUCOSE (AUTOMATED)2023-06-02 21:47:04* Test Item Value Reference Range Interpretation Comme nts POCT GLU (test code = 2867686320) 192 mg/dL 70-110 H Lab Interpretation (test cod e = 93074-1) Abnormal [facility] GLUCOSE (AUTOMATED)2023-06-02 21:47:04* Test Item Value Reference Range Interpretation Comme nts POCT GLU (test code = 4407606105) 192 mg/dL 70-110 H Lab Interpretation (test cod e = 77943-8) Abnormal [facility] TIME OR (NON-REPORTABLE)2023-06-02 18:12:07 These images do not require a Radiology diagnostic report.[facility] TIME OR (NON-REPORTABLE)2023-06-02 18:12:07These images do not require a Radiology diagnostic report.[facility] GLUCOSE (AUTOMATED)2023-06-02 01:58:20* Test Item Value Reference Range Interpretation Comme nts POCT GLU (test code = 7921921983) 193 mg/dL 70-110 H Lab Interpretation (test cod e = 55351-1) Abnormal [facility] GLUCOSE (AUTOMATED)2023-06-02 01:58:20* Test Item Value Reference Range Interpretation Comme nts POCT GLU (test code = 8135615027) 193 mg/dL 70-110 H Lab Interpretation (test cod e = 94587-6) Abnormal [facility] GLUCOSE (AUTOMATED)2023-06-01 22:27:31* Test Item Value Reference Range Interpretation Comme nts POCT GLU (test code = 6673668641) 98 mg/dL 70-110 Lab Interpretation (test cod e = 23623-9) Normal [facility] GLUCOSE (AUTOMATED)2023-06-01 22:27:31* Test Item Value Reference Range Interpretation Comme nts POCT GLU (test code = 6845515546) 98 mg/dL 70-110 Lab Interpretation (test cod e = 65193-7) Normal [facility] Glucose (Age >30 Days)2023-06-01 22:27:00 * Test Item Value Reference Range Interpretation Comme nts POCT Glu (age>30days) (test code = 3342) 98 mg/dL 70-110 Lab Interpretation (test cod e = 98212-2) [facility] (Age >30 Days)2023-06-01 22:27:00 * Test Item Value Reference Range Interpretation Comme nts POCT Glu (age>30days) (test code = 3342) 98 mg/dL 70-110 Lab Interpretation (test cod e = 73803-3) Normal [facility] 2 [id number] 18:01:12Chest, two views History: ?cough [facility] [id number] 18:01:12Chest, two views History: ?cough [facility] [id number] 17:53:09EXAM: CT ABDOMEN AND PELVIS WITHOUT CONTRAST HISTORY: 58-year-old female with flank pain, kidney stone suspected. COMPARISON: None. TECHNIQUE AND FINDINGS: Contiguous axial imaging from the level of the lungbases through the pubic symphysis was performed without contrast. Coronaland sagittal reconstructions were obtained. FINDINGS: LOWER THORAX: The lungs bases are clear with mild dependent atelectasis. Nocardiomegaly. LIVER: No focal hepatic lesions. ?No biliary ductal dilation. GALLBLADDER AND BILIARY TREE: No biliary ductal dilation. Status postcholecystectomy SPLEEN: No splenomegaly. PANCREAS: No ductal dilation or masses. ADRENAL GLANDS: No adrenal nodules. KIDNEYS: The right kidney ismild enlarged with perinephric inflammatorychanges. Has mild hydronephrosis and a 3 mm stone at theproximal ureter atto the UPJ. . More distal the ureter appears prominent but there is noconvincing luminal calcification. There are several right-sided pelvicphleboliths that appear stable since 2021.The left kidney is unremarkable without lithiasis. PERITONEUM AND RETROPERITONEUM: No free air or fluid. LYMPH NODES: No lymphadenopathy. GI TRACT: No dilation or wall thickening. Changes from prior colonresection, surgical margins appear spine without evidence for obstruction.The colon stool burden is small. PELVIS/BLADDER: The urinary bladder is partially distended with thickenedwalls and a clear lumen. The morphology suggests a cystitis. There is nopelvic mass or free fluid. VESSELS: Unremarkable with mild scattered atherosclerotic calcification BONES AND SOFT TISSUES: No suspicious lytic or sclerotic bony lesions[facility] A[facility]OMEN PEL[facility] CONTRAST 2023-06-01 17:53:09EXAM: CT ABDOMEN AND PELVIS WITHOUT CONTRAST HISTORY: 58-year-old female with flank pain, kidney stone suspected. COMPARISON: None. TECHNIQUE AND FINDINGS: Contiguous axial imaging from the level of the lungbases through the pubic symphysis was performed without contrast. Coronaland sagittal reconstructions were obtained. FINDINGS: LOWER THORAX: The lungs bases are clear with mild dependent atelectasis. Nocardiomegaly. LIVER: No focal hepatic lesions. ?No biliary ductal dilation. GALLBLADDER AND BILIARY TREE: No biliary ductal dilation. Status postcholecystectomy SPLEEN: No splenomegaly. PANCREAS: No ductal dilation or masses. ADRENAL GLANDS: No adrenal nodules. KIDNEYS: The right kidney ismild enlarged with perinephric inflammatorychanges. Has mild hydronephrosis and a 3 mm stone at theproximal ureter atto the UPJ. . More distal the ureter appears prominent but there is noconvincing luminal calcification. There are several right-sided pelvicphleboliths that appear stable since 2021.The left kidney is unremarkable without lithiasis. PERITONEUM AND RETROPERITONEUM: No free air or fluid. LYMPH NODES: No lymphadenopathy. GI TRACT: No dilation or wall thickening. Changes from prior colonresection, surgical margins appear spine without evidence for obstruction.The colon stool burden is small. PELVIS/BLADDER: The urinary bladder is partially distended with thickenedwalls and a clear lumen. The morphology suggests a cystitis. There is nopelvic mass or free fluid. VESSELS: Unremarkable with mild scattered atherosclerotic calcification BONES AND SOFT TISSUES: No suspicious lytic or sclerotic bony lesions.[facility] WITH [id number] 17:05:51* Test Item Value Reference Range Interpretation Comme nts WBC (test code = 6690-2) 12.32 4.30-11.10 H RBC (test code = 789-8) 4.08 3.93-5.25 HGB (test code = 718-7) 12.7 g/dL 11.6-15.0 HCT (test code = 4544-3) 37.2 % 35.7-45.2 MCV (test code = 787-2) 91.2 fL 80.6-95.5 MCH (test code = 785-6) 31.1 pg 25.9-32.8 MCHC (test code = 786-4) 34.1 g/dL 31.6-35.1 RDW-SD (test code = 20431-8) 41.0 fL 39.0-49.9 RDW-CV (test code = 788-0) 12.1 % 12.0-15.5 PLT (test code = 777-3) 273 166-358 MPV (test code = 70846-4) 10.6 fL 9.5-12.9 NRBC/100 WBC (test code = 4119299728) 0.0 0.0-10.0 NRBC x10^3 (test code = 1863242166) See_Comment [Automated messa ge] The system which generated this result transmitted reference range: 10*3/?L. The reference range was not used to interpret this result as normal/abnormal. GRAN MAT (NEUT) % (test code = 770-8) 75.9 % IMM GRAN % (test code = 7276801959) 0.30 % LYMPH % (test code = 736-9) 10.6 % MONO % (test code = 5905-5) 12.3 % EOS % (test code = 713-8) 0.5 % BASO % (test code = 706-2) 0.4 % GRAN MAT x10^3(ANC) (test code = 0494145961) 9.36 10*3/uL 1.88-7.09 H IMM GRAN x10^3 (test code = 0660807614) 0.04 10*3/uL 0.00-0.06 LYMPH x10^3 (test code = 731-0) 1.30 10*3/uL 1.32-3.29 L MONO x10^3 (test code = 742-7) 1.51 10*3/uL 0.33-0.92 H EOS x10^3 (test code = 711-2) 0.06 10*3/uL 0.03-0.39 BASO x10^3 (test code = 704-7) 0.05 10*3/uL 0.01-0.07 Lab Interpretation (test code = 55362-6) Abnormal [facility] WITH [id number] 17:05:51* Test Item Value Reference Range Interpretation Comme nts WBC (test code = 6690-2) 12.32 4.30-11.10 H RBC (test code = 789-8) 4.08 3.93-5.25 HGB (test code = 718-7) 12.7 g/dL 11.6-15.0 HCT (test code = 4544-3) 37.2 % 35.7-45.2 MCV (test code = 787-2) 91.2 fL 80.6-95.5 MCH (test code = 785-6) 31.1 pg 25.9-32.8 MCHC (test code = 786-4) 34.1 g/dL 31.6-35.1 RDW-SD (test code = 56516-1) 41.0 fL 39.0-49.9 RDW-CV (test code = 788-0) 12.1 % 12.0-15.5 PLT (test code = 777-3) 273 166-358 MPV (test code = 89501-0) 10.6 fL 9.5-12.9 NRBC/100 WBC (test code = 6099890374) 0.0 0.0-10.0 NRBC x10^3 (test code = 6821623647) See_Comment [Automated messa ge] The system which generated this result transmitted reference range: 10*3/?L. The reference range was not used to interpret this result as normal/abnormal. GRAN MAT (NEUT) % (test code = 770-8) 75.9 % IMM GRAN % (test code = 0813854825) 0.30 % LYMPH % (test code = 736-9) 10.6 % MONO % (test code = 5905-5) 12.3 % EOS % (test code = 713-8) 0.5 % BASO % (test code = 706-2) 0.4 % GRAN MAT x10^3(ANC) (test code = 6137338142) 9.36 10*3/uL 1.88-7.09 H IMM GRAN x10^3 (test code = 0021628380) 0.04 10*3/uL 0.00-0.06 LYMPH x10^3 (test code = 731-0) 1.30 10*3/uL 1.32-3.29 L MONO x10^3 (test code = 742-7) 1.51 10*3/uL 0.33-0.92 H EOS x10^3 (test code = 711-2) 0.06 10*3/uL 0.03-0.39 BASO x10^3 (test code = 704-7) 0.05 10*3/uL 0.01-0.07 Lab Interpretation (test code = 73361-2) Abnormal [facility]. METABOLIC PANEL (66671)2023-06-01 16:54:45* Test Item Value Reference Range Interpretation Comme nts NA (test code = 6455047009) 136 mmol/L 135-145 K (test code = 3154241701) 4.3 mmol/L 3.5-5.0 CL (test code = 1110493923) 102 mmol/L 98-108 CO2 TOTAL (test code = 4889843511) 26 mmol/L 23-31 AGAP (test code = 0515632467) 8 2-16 BUN (test code = 7495267569) 23 mg/dL 7-23 GLUCOSE (test code = 1149838099) 154 mg/dL 70-110 H CREATININE (test code = 2160-0) 1.36 mg/dL 0.50-1.04 H TOTAL BILI (test code = 2943212481) 0.9 mg/dL 0.1-1.1 CALCIUM (test code = 2149409911) 9.3 mg/dL 8.6-10.6 T PROTEIN (test code = 0195152016) 6.9 g/dL 6.3-8.2 ALBUMIN (test code = 8311865981) 4.2 g/dL 3.5-5.0 ALK PHOS (test code = 2061865474) 190 U/L 34-122 H ALTv (test code = 1742-6) 62 U/L 5-35 H AST(SGOT) (test code = 9557734730) 54 U/L 13-40 H eGFR (test code = 18852-7) 45.0 mL/min/1.73m2 CKD-EPI eGFR (2020). Assuming creatinine has been stable day-to-day for at least three months, the eGFR indicates Category G3a (45 - 59 mL/min/1.73 m2) Lab Interpretation (test code = 21333-8) [facility]normal [facility]20[facility] 16:54:45* Test Item Value Reference Range Interpretation Comme nts LIPASE (test code = 6714887460) 39 U/L 0-220 Lab Interpretation (test cod e = 46368-1) Normal [facility]ville[facility]. METABOLIC PANEL (01884)2023-06-01 16:54:45* Test Item Value Reference Range Interpretation Comme nts NA (test code = 0050463794) 136 mmol/L 135-145 K (test code = 2143584749) 4.3 mmol/L 3.5-5.0 CL (test code = 8317038032) 102 mmol/L 98-108 CO2 TOTAL (test code = 4154711080) 26 mmol/L 23-31 AGAP (test code = 8658828617) 8 2-16 BUN (test code = 8294280556) 23 mg/dL 7-23 GLUCOSE (test code = 4526112439) 154 mg/dL 70-110 H CREATININE (test code = 2160-0) 1.36 mg/dL 0.50-1.04 H TOTAL BILI (test code = 7918634922) 0.9 mg/dL 0.1-1.1 CALCIUM (test code = 3987431126) 9.3 mg/dL 8.6-10.6 T PROTEIN (test code = 0649940549) 6.9 g/dL 6.3-8.2 ALBUMIN (test code = 3039887983) 4.2 g/dL 3.5-5.0 ALK PHOS (test code = 3918114596) 190 U/L 34-122 H ALTv (test code = 1742-6) 62 U/L 5-35 H AST(SGOT) (test code = 2966151055) 54 U/L 13-40 H eGFR (test code = 08178-3) 45.0 mL/min/1.73m2 CKD-EPI eGFR (2020). Assuming creatinine has been stable day-to-day for at least three months, the eGFR indicates Category G3a (45 - 59 mL/min/1.73 m2) Lab Interpretation (test code = 86622-1) [facility]normal [facility]2024-[facility]17 16:54:45* Test Item Value Reference Range Interpretation Comme nts LIPASE (test code = 7003313731) 39 U/L 0-220 Lab Interpretation (test cod e = 11925-9) Normal [facility]villeBASIC METABOLIC [id number] 03:30:00* Test Item Value Reference Range Interpretation Comme nts SODIUM (test code = NA/ABG) 142 mmol/L 134-147 N POTASSIUM (test code = K/ABG) 4.1 mmol/L 3.4-5.0 N CHLORIDE (test code = CL/ABG) 109 mmol/L 100-108 H CREATININE ABG (test code = CREAABG) 1.0 mg/dL 0.6-1.0 N POC IONIZED CALCIUM (test co de = POCCA) 1.20 MMOL/L 1.12-1.32 N POC GLUCOSE (test code = POCGLU) 94 MG/DL 70-110 N URINALYSIS [id number] 03:16:00* Test Item Value Reference Range Interpretation Comme nts POC URINE COLOR (test code = EDCOLU) Other Yellow A POC URINE CLARITY (test code = EDCLARITY) Slightly Cloudy Clear A POC URINE GLUCOSE (test code = EDGLUU) Negative Negative POC URINE BILIRUBIN (test code = EDBILIU) Negative Negative POC URINE KETONES (test code = EDKETU) Negative Negative POC URINE SPECIFIC GRAVITY (test code = EDSGU) 1.015 1.001-1.035 N POC URINE BLOOD (test code = EDBLDU) Moderate Negative A POC URINE pH (test code = EDPH) 7.0 5.0-8.0 N POC URINE PROTEIN (test code = EDPROTU) 30 Negative A POC URINE UROBILINOGEN (test code = EDURO) 0.2 E.U/dL 0.2-1.0 POC URINE NITRITE (test code = EDNIT) Negative Negative POC URINE LEUKOCYTE ESTERASE (test code = EDLEUK) Large Negative A [facility] [place], [address], Hemoglobin A1c measurement device [id number] 14:58:00* Test Item Value Reference Range Interpretation Comme nts Hemoglobin A1c/Hemoglobin.to ayush in Blood (test code = 4548-4) 6.1 % 4.0-6.4 [facility] [id number] 00:00:00* Test Item Value Reference Range Interpretation Comme nts Hemoglobin A1c/Hemoglobin.to ayush in Blood (test code = 4548-4) 15.1 % 4.8-5.6 H estim. avg glu (EAG) (test c ode = estim. avg glu (EAG)) 387 mg/dL [facility]/Creatinine [Mass Ratio] in [id number] 00:00:00* Test Item Value Reference Range Interpretation Comme nts microalbumin random urine (test code = microalbumin random urine) 7 ug/mL creatinine random urine (jocelyne t code = creatinine random urine) 35.7 mg/dL 20.0-320.0 microalbumin/creatinine (random urine) ratio calculated (test code = microalbumin/creatinine (random urine) ratio calculated) 20 mcg/mg creat [facility] 2000 [facility] - Serum or Plasma 2022-04-08 00:00:00* Test Item Value Reference Range Interpretation Comme [facility] ALT (test code = ALT) 27 U/L 0-55 AST (test code = AST) 11 U/L 5-34 BUN (test code = BUN) 11.1 mg/dL 9.8-25.0 alk phos (test code = alk phos) 108 unit/L 40-150 glucose (test code = glucose) 397 mg/dL 70-99 H albumin (test code = albumin) 3.5 g/dL 3.4-5.1 creatinine (test code = creatinine) 0.85 mg/dL 0.57-1.11 eGFR (test code = eGFR) >60 total bilirubin (test code = total bilirubin) 0.5 mg/dL 0.2-1.2 sodium (test code = sodium) 135 mEq/L 135-145 potassium (test code = potassium) 4.9 mEq/L 3.5-5.3 chloride (test code = chloride) 95 mmol/L 98-110 L total protein (test code = t otal protein) 6.3 g/dL 6.1-8.2 calcium (test code = calcium) 10.0 mg/dL 8.4-10.4 CO2 (test code = CO2) 27.2 mmol/L 20.0-32.0 anion gap (test code = anion gap) 13 calc [facility] complete [facility] - [id number] 00:00:00* Test Item Value Reference Range Interpretation Comme nts specific gravity (test code = specific gravity) >=1.030 1.005-1.030 A pH (test code = pH) 6.5 5.0-7.5 urine-color (test code = urine-color) yellow yellow appearance (test code = appearance) clear clear WBC esterase (test code = WB C esterase) negative negative protein (test code = protein) negative negative/trace glucose (test code = glucose) 3+ negative A ketones (test code = ketones) 2+ negative A occult blood (test code = oc cult blood) negative negative bilirubin (test code = bilirubin) negative negative urobilinogen,semi-qn (test c ode = urobilinogen,semi-qn) 0.2 mg/dL 0.2-1.0 nitrite, urine (test code = nitrite, urine) negative negative microscopic examination (jocelyne t code = microscopic examination) [facility], [id number] 00:00:00* Test Item Value Reference Range Interpretation Comme nts WBC (test code = WBC) 0-5 0-5 RBC (test code = RBC) none seen 0-2 epithelial cells (non renal) (test code = epithelial cells (non renal)) 0-10 0-10 epithelial cells (renal) (te st code = epithelial cells (renal)) comment casts (test code = casts) none seen none seen cast type (test code = cast type) comment crystals (test code = crystals) comment crystal type (test code = cr ystal type) comment mucus threads (test code = m ucus threads) comment bacteria (test code = bacteria) none seen none seen/few yeast (test code = yeast) comment trichomonas (test code = trichomonas) comment comment (test code = comment) comment [facility] W Auto Differential panel - [id number] 00:00:00 * Test Item Value Reference Range Interpretation Comme nts WBC (test code = WBC) 6.04 x10*3/?L 4.00-11.00 RBC (test code = RBC) 4.29 10*12/L 3.93-5.22 hemoglobin (test code = hemoglobin) 14.40 g/dL 11.20-15.70 hematocrit (test code = hematocrit) 42.7 % 34.1-44.9 MCV (test code = MCV) 99.5 fL 80.0-100.0 MCH (test code = MCH) 33.6 pg 25.6-32.2 H MCHC (test code = MCHC) 33.7 g/dL 32.2-35.5 RDW-SD (test code = RDW-SD) 45.7 fL 36.4-46.3 platelet count (test code = platelet count) 350.0 k/uL 150.0-400.0 MPV (test code = MPV) 12.4 fL 7.5-11.5 H neut% (test code = neut%) 54.1 % 34.0-71.1 lymph% (test code = lymph%) 32.5 % 19.3-51.7 mon% (test code = mon%) 8.9 % 4.7-12.5 eos% (test code = eos%) 1.2 % 0.7-5.8 baso% (test code = baso%) 1.3 % 0.1-1.2 H neut# (test code = neut#) 3.3 x10*3/?L 1.6-6.1 lymph# (test code = lymph#) 2.0 x10*3/?L 1.2-3.7 mon# (test code = mon#) 0.5 x10*3/?L 0.2-0.9 eos# (test code = eos#) 0.07 x10*3/?L 0.04-0.36 baso# (test code = baso#) 0.08 x10*3/?L 0.01-0.08 [facility] CenterThyroxine (T4) free [Mass/volume] in Serum or Plasma 2022-04-05 00:00:00* Test Item Value Reference Range Interpretation Comme nts T4 free (test code = T4 free) 1.10 NG/dL 0.70-1.48 [facility] Practice[facility] - Serum or [id number] 00:00:00* Test Item Value Reference Range Interpretation Comme nts HDL (test code = HDL) 27 mg/dL L triglyceride (test code = triglyceride) 421 mg/dL <150 H VLDL (calculated) (test code = VLDL (calculated)) 84 mg/dL cholesterol/HDL ratio (test code = cholesterol/HDL ratio) 7.5 mg/dL non-HDL cholesterol (calcula harvey) (test code = non-HDL cholesterol (calculated)) 176 mg/dL <160 H cholesterol (test code = cholesterol) 203 mg/dL <200 H Cholesterol in LDL [Mass/vol ume] in Serum or Plasma (test code = 2089-1) see comment <130 [facility] CenterKouqpjvg28-Ctmkrjhfgbunww D3+25-Hydroxyvitamin D2 [Mass/volume] in Serum or [id number] 00:00:00* Test Item Value Reference Range Interpretation Comme [facility] vitamin D 25OH (test code = vitamin D 25OH) 19.2 NG/mL 30.0-96.0 L [facility] CenterThyrotropin [Units/volume] in Serum or [id number] 00:00:00* Test Item Value Reference Range Interpretation Comme [facility] TSH (test code = TSH) 3.371 uIU/mL 0.350-4.940 [facility] CenterTriiodothyronine (T3) Free [Mass/volume] in Serum or [id number] 00:00:00* Test Item Value Reference Range Interpretation Comme [facility] T3 free (test code = T3 free) 1.95 pg/mL 1.58-3.91 [facility] CenterHemoglobin A1c/Hemoglobin.total in [id number] 00:00:00* Test Item Value Reference Range Interpretation Comme nts Hemoglobin A1c/Hemoglobin.to ayush in Blood (test code = 4548-4) 13.8 % 1.0-5.7 H average blood glucose (calcu lation) (test code = average blood glucose (calculation)) 349 mg/dL [facility] CenterBacteria identified in Urine by [id number] 00:00:00* Test Item Value Reference Range Interpretation Comme nts urine culture, routine (test code = urine culture, routine) final report A result 1 (test code = result 1) escherichia coli A antimicrobial susceptibility (test code = antimicrobial susceptibility) comment [facility] CenterUrinalysis macro (dipstick) panel - [id number] 17:24:00* Test Item Value Reference Range Interpretation Comme nts Interpretation UA test performed using: (test code = Interpretation UA test performed using:) Automated device/analyzer ([id number]) Interpretation Color (test code = Interpretation Color) Yellow Interpretation Clarity (test code = Interpretation Clarity) Clear Interpretation Glucose (mg/dL) (test code = Interpretation Glucose (mg/dL)) 500 Interpretation Bilirubin (test code = Interpretation Bilirubin) Negative Interpretation Ketone (mg/dL) (test code = Interpretation Ketone (mg/dL)) 80 Interpretation Specific Batson (test code = Interpretation Specific Batson) 1.015 Interpretation Occult Blood (test code = Interpretation Occult Blood) Trace-Intact (or Trace Non-Hemolyzed) Interpretation pH (test code = Interpretation pH) 5 Interpretation Protein (test code = Interpretation Protein) Negative Interpretation Urobilinogen (test code = Interpretation Urobilinogen) 0.2 Interpretation Nitrites (test code = Interpretation Nitrites) Negative Interpretation Leukocytes (test code = Interpretation Leukocytes) Negative [facility] CenterUrinalysis macro (dipstick) panel - [id number] 09:20:37* Test Item Value Reference Range Interpretation Comme nts Color Color (test code = Col or Color) yellow Color Appearance (test code = Color Appearance) clear Color Glucose (test code = C olor Glucose) negative Color Bilirubin (test code = Color Bilirubin) negative Color Ketones (test code = C olor Ketones) negative Color Specific Batson (test code = Color Specific Batson) 1.010 Color Blood (test code = Col or Blood) negative Color PH (test code = Color PH) 5.5 Color Protein (test code = C olor Protein) negative Color Urobilinogen (test cod e = Color Urobilinogen) 0.2 Color Nitrites (test code = Color Nitrites) negative Color Leukocytes (test code = Color Leukocytes) negative [facility] CenterGlucose [Mass/volume] in Capillary [id number] 08:44:39* Test Item Value Reference Range Interpretation Comme nts Blood Glucose: mg/dl (test c ode = Blood Glucose: mg/dl) 87 [facility] Consult Notes Date/Time Note Provider Source 2023-06-01 16:30:00 Associated Order(s): CONSULT UROLOGY UROLOGY CONSULTATION NOTE Requesting Physician: Hospitalist Date of Service: 06/01/2023 Reason for Consult: Right urolithiasis History of Present Illness Maritza Washington, 58 year old female presenting with 3 mm at the right proximal ureter resulting in mild hydronephrosis. Associated with flank pain and nausea/vomiting. No fevers/chills. Was at [facility] ER 3-4 days ago and was diagnosed with the stone. On presentation she is HDS and afebrile, mild leukocytosis 12k, UA concerning for UTI with positive nitrite however patient is on Azo. Renal function mildly impacted Cr 1.36 with poor PO intake over past few days. Medications: Home Medications: (Not in a hospital admission) Hospital Medications: Current Facility-Administered Medications Medication Dose Route Frequency Last Rate Last Admin acetaminophen (TYLENOL) tablet 650 mg 650 mg Oral Q6H atorvastatin (LIPITOR) tablet 10 mg 10 mg Oral QHS buPROPion SR (WELLBUTRIN SR) tablet 150 mg 150 mg Oral BID [START ON 06/02/2023] cefTRIAXone (ROCEPHIN) 1,000 mg in NaCl 0.9% (NS) 100 mL MINI-BAG 1,000 mg IV Piggyback Q24H ABX dextrose 50 % in water (D50W) injection 25 mL 25 mL Slow IV Push PRN enoxaparin (LOVENOX) injection 40 mg 40 mg Subcutaneous DAILY gabapentin (NEURONTIN) capsule 300 mg 300 mg Oral QHSPRN glucagon (GLUCAGEN DIAGNOSTIC KIT) injection 1 mg 1 mg Intramuscular PRN guaiFENesin (FENESIN IR) tablet 200 mg 200 mg Oral Q4HPRN HYDROcodone-acetaminophen (NORCO 5) 5-325 mg tablet 1 tablet 1 tablet Oral Q6HPRN ketorolac (TORADOL) injection 15 mg 15 mg Slow IV Push Q6H lactated ringers IV infusion 1,000 mL 1,000 mL IV Infusion CONTINUOUS methocarbamoL (ROBAXIN) tablet 500 mg 500 mg Oral QID morpHINE (4 mg/mL) injection 4 mg 4 mg Slow IV Push Q4HPRN 4 mg at 06/01/23 1700 ondansetron (ZOFRAN (PF)) injection 4 mg 4 mg Slow IV Push Q6HPRN 4 mg at 06/01/23 1703 [START ON 06/02/2023] pantoprazole (PROTONIX) EC tablet 40 mg 40 mg Oral DAILY sennosides-docusate sodium (SENOKOT-S) 8.6-50 mg per tablet 1 tablet 1 tablet Oral QDAILYPRN Sliding Scale Insulin - Lispro (HumaLOG) Subcutaneous TID MEALS+HS tamsulosin (FLOMAX) capsule 0.4 mg 0.4 mg Oral QHS Current Outpatient Medications Medication Sig Dispense Refill cefdinir 300 mg capsule Take 1 capsule by mouth in the morning and 1 capsule in the evening. 10 capsule 0 glipiZIDE 10 mg tablet Take 1 tablet by mouth in the morning. 30 tablet 0 atorvastatin 10 mg tablet Take 1 tablet by mouth at bedtime. 90 tablet 0 gabapentin 300 mg capsule Take 1 capsule by mouth at bedtime as needed. 90 capsule 0 glipiZIDE XL 5 mg 24 hr tablet Take 1 tablet by mouth daily with breakfast. 90 tablet 3 BUPROPION SR 150 mg SR tablet TAKE 1 TABLET BY MOUTH TWICE A DAY 180 tablet 0 pantoprazole 40 mg EC tablet Take 1 tablet by mouth daily. 60 tablet 2 metFORMIN 1,000 mg tablet Take 1 tablet by mouth 2 (two) times daily with meals. 180 tablet 3 lisinopriL 5 mg tablet Take 1 tablet by mouth daily. 90 tablet 3 blood sugar diagnostic ([employer] PharmaceuticalsTOUCH ULTRA TEST) strip Use to test glucose once a day E11.9 100 Strip 1 lancets (ONETOUCH DELICA LANCETS) 30 gauge Misc Use to test glucose once a day E11.9 100 Each 1 acetaminophen (TYLENOL EXTRA STRENGTH) 500 mg tablet Take 1 tablet by mouth every 6 (six) hours as needed for Pain for up to 20 doses. 20 tablet 0 albuterol 90 mcg/actuation inhaler Inhale 2 Puffs every 4 (four) hours as needed for Wheezing or Shortness of Breath. 8.5 g 0 Histories: Past Medical History: Diagnosis Date Colon cancer 2009, 2013 Dr. Mckenzie s/p colon resection 2009. repeat scope 03/2013 was neg and following up in 1 year H/O: hysterectomy 2004 History of colonoscopy 2016 clean; History of small bowel obstruction 2013 medically managed Hx of cholecystectomy 1997 Pap smear abnormality of cervix 20+ years ago Past Surgical History: Procedure Laterality Date CHOLECYSTECTOMY COLON SURGERY 2009 h/o colon cancer COLONOSCOPY Left 06/26/2017 Surgeon: Jarred Jara MD; Location: [facility] COLONOSCOPY Left 12/06/2020 Surgeon: Abdelrahman Madden MD; Location: [facility] COLPOSCOPY benign per pt. normal pap since ESOPHAGOGASTRODUODENOSCOPY N/A 06/27/2016 Surgeon: Jarred Jara MD; Location: [facility] ESOPHAGOGASTRODUODENOSCOPY N/A 06/26/2017 Surgeon: Jarred Jara MD; Location: [facility] ESOPHAGOGASTRODUODENOSCOPY Left 12/06/2020 Surgeon: Abdelrahman Madden MD; Location: [facility] HYSTERECTOMY kept ovaries; dysmenorrhea TRIGGER FINGER RELEASE Left 05/27/2017 Surgeon: Prashant El MD; Location: [facility] TUBAL LIGATION Family History Problem Relation Age of Onset Stroke Father Hypertension Father Breast Cancer Mother late 50s Hypertension Mother Lung Cancer Mother Uterine Cancer Sister Cancer Maternal Grandfather throat Social History Socioeconomic History Marital status: Occupational History 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. Currently going to school for criminal justice studies. Allergies: Allergies Allergen Reactions Sulfa (Sulfonamide Antibiotics) Nausea and/or Vomiting Vicodin [Hydrocodone-Acetaminophen] Itching Review of Systems: Constitutional: negative Eyes: negative Ears, nose, mouth, throat: negative Cardiovascular: negative Respiratory: negative Gastrointestinal: negative Genitourinary: (+) per HPI Musculoskeletal: negative Integumentary: negative Neurological: negative Psychiatric: negative Endocrine: negative Hematologic/Lymphatic: negative Allergic/Immunologic: negative, allergies listed above Physical Exam: Blood pressure (!) 161/88, pulse 103, temperature 37.7 ?C (99.8 ?F), temperature source Oral, resp. rate 14, height 1.499 m (4' 11"), weight 56.7 kg (125 lb), SpO2 100 %. Constitutional: no acute distress Cardiovascular: regular rate Respiratory: respirations unlabored on room air Gastrointestinal: soft, non-distended, non tender Genitourinary: No CVAT Labs: CBC BMP PT/INR WBC x10 3 (/uL) Date Value 09/07/2013 5.0 WHITE BLOOD CELL COUNT-Q (Thousand/uL) Date Value 08/02/2016 7.0 WBC (10*3/?L) Date Value 06/01/2023 12.32 (H) NA Date Value 06/01/2023 136 mmol/L 09/07/2013 142 MMOL/L SODIUM-Q (mmol/L) Date Value 08/02/2016 142 No results found for: "PT" RBC x10 6 (/uL) Date Value 09/07/2013 4.16 RED BLOOD CELL COUNT-Q (Million/uL) Date Value 08/02/2016 4.69 RBC (10*6/?L) Date Value 06/01/2023 4.08 K Date Value 06/01/2023 4.3 mmol/L 09/07/2013 4.7 MMOL/L POTASSIUM-Q (mmol/L) Date Value 08/02/2016 5.1 No results found for: "PTINR" PLT x10 3 (/uL) Date Value 09/07/2013 321 PLATELET COUNT-Q (Thousand/uL) Date Value 08/02/2016 242 PLT (10*3/?L) Date Value 06/01/2023 273 CALCIUM Date Value 06/01/2023 9.3 mg/dL 09/07/2013 9.7 MG/DL CALCIUM-Q (mg/dL) Date Value 08/02/2016 9.9 HGB Date Value 06/01/2023 12.7 g/dL 09/07/2013 13.1 G/DL HEMOGLOBIN-Q (g/dL) Date Value 08/02/2016 15.0 CL Date Value 06/01/2023 102 mmol/L 09/07/2013 105 MMOL/L CHLORIDE-Q (mmol/L) Date Value 08/02/2016 108 aPTT HCT (%) Date Value 06/01/2023 37.2 09/07/2013 39.1 HEMATOCRIT-Q (%) Date Value 08/02/2016 44.4 BUN Date Value 06/01/2023 23 mg/dL 09/07/2013 9 MG/DL UREA NITROGEN (BUN)-Q (mg/dL) Date Value 08/02/2016 14 No results found for: "APTTPAT" CREATININE Date Value 06/01/2023 1.36 mg/dL (H) 09/07/2013 0.69 MG/DL CREATININE-Q (mg/dL) Date Value 08/02/2016 0.70 Radiology: XR CHEST 2 VW Narrative: Chest, two views History: cough Ordering Physician: RC PENG Impression: Heart size and mediastinal contours appear normal no pneumothorax or edema. No pleural effusion. No consolidative pneumonia identified Thickening of the central airways is present which may represent airway inflammation or edema. Subsegmental atelectasis of the lung bases. RL: [id number] AFC: [id number] ABDOMEN PELVIS WO CONTRAST Narrative: EXAM: CT ABDOMEN AND PELVIS WITHOUT CONTRAST HISTORY: 58-year-old female with flank pain, kidney stone suspected. COMPARISON: None. TECHNIQUE AND FINDINGS: Contiguous axial imaging from the level of the lung bases through the pubic symphysis was performed without contrast. Coronal and sagittal reconstructions were obtained. FINDINGS: LOWER THORAX: The lungs bases are clear with mild dependent atelectasis. No cardiomegaly. LIVER: No focal hepatic lesions. No biliary ductal dilation. GALLBLADDER AND BILIARY TREE: No biliary ductal dilation. Status post cholecystectomy SPLEEN: No splenomegaly. PANCREAS: No ductal dilation or masses. ADRENAL GLANDS: No adrenal nodules. KIDNEYS: The right kidney is mild enlarged with perinephric inflammatory changes. Has mild hydronephrosis and a 3 mm stone at the proximal ureter at to the UPJ. . More distal the ureter appears prominent but there is no convincing luminal calcification. There are several right-sided pelvic phleboliths that appear stable since 2021. The left kidney is unremarkable without lithiasis. PERITONEUM AND RETROPERITONEUM: No free air or fluid. LYMPH NODES: No lymphadenopathy. GI TRACT: No dilation or wall thickening. Changes from prior colon resection, surgical margins appear spine without evidence for obstruction. The colon stool burden is small. PELVIS/BLADDER: The urinary bladder is partially distended with thickened cordoba and a clear lumen. The morphology suggests a cystitis. There is no pelvic mass or free fluid. VESSELS: Unremarkable with mild scattered atherosclerotic calcification BONES AND SOFT TISSUES: No suspicious lytic or sclerotic bony lesions. Impression: Mild right hydronephrosis and inflammatory changes surround the right kidney. A 3 mm stone noted at the right UPJ. The right ureter has nonspecific inflammatory changes but no convincing additional stones. Patient may have recently passed a small stone The urinary bladder has thickened cordoba and a clear lumen as in a cystitis. Changes from colon resection without obstruction or recent complication. Procedure: NA Assessment: Maritza Washington is a 58 year old female presenting with 3 mm right proximal stone and hydro with UTI. Clinically stable without fevers or chills, pain controlled now, nausea improved. Recommendations: -- IV fluids @ 150 cc/hr -- Multimodal pain control, flomax -- NPO past midnight for possible R stent placement if clinically worsens or pain/nausea not controlled -- Repeat catheterized UA tomorrow AM after holding Azo -- Abx per primary, tailor to cultures as able -- Rest per primary Discussed with Dr. Warner. Margaret Tena MD Urology Resident Pager: please page regional facilities specialist using [employer] Associated attestation - Antwan Warner MD - 06/02/2023 9:29 AM CDT I have reviewed Dr. Tena 's note. I agree with the documentation and plan Antwan Warner MD 06/02/2023 9:29 AM [facility] - Health History and Physical Notes Date/Time Note Provider Source 2023-06-12 14:03:10 I saw and examined the patient on 06/12/2023 and agree with the resident's note as written by Dr Hidalgo. I actively participated in the decision-making process. Please see the resident's note for additional details. I reviewed CT images with patient and confirmed correct side : right USM: invasive, most likely clear the stone in one session, risk of complications mainly damage to ureter ( perforation, avulsion, need to reimplant/reconstruct the ureter). pain, bleeding, infection, injury to surrounding structures, need for prolonged stent, failure to access ureter/kidney, need for percutaneous nephrostomy tube, failure to remove all stone, need for additional procedures Patient consented as above All questions answered Carlos Gomes MD [facility] 2023-06-12 13:59:14 Patient seen and examined, agree with H&P, no interval changes. Surgeon: Rosey MAZA Date: 06/12/2023 Plan for R sided USM today with Dr. Gomes. Guera Hidalgo PGY2 Urology [facility] Associated attestation - Carlos Gomes MD - 06/12/2023 4:30 PM CDT I saw and examined the patient on 06/12/2023 and agree with the resident's note as written by Dr Hidalgo. I actively participated in the decision-making process. Please see the resident's note for additional details. Carlos Gomes MD Source Note - Albin Nuñez MD - 06/03/2023 9:03 AM CDT Urology Progress Note 06/03/2023 09:03 Subjective: S/p right ureteral stent placement day 1 NAEON AF, vitals wnl after procedure Pain resolved this AM Ambulating No N/V Kidney function improving Objective: Vitals: 06/02/23 1907 06/02/23 2340 06/03/23 0422 06/03/23 0756 BP: 131/69 (!) 143/79 116/73 (!) 142/77 BP Location: Patient Position: Pulse: 75 72 62 78 Resp: Temp: 36.6 ?C (97.8 ?F) 36.7 ?C (98.1 ?F) 36.5 ?C (97.7 ?F) 36.8 ?C (98.2 ?F) TempSrc: SpO2: 94% 96% 95% 94% Weight: 56 kg (123 lb 6.4 oz) Height: PHYSICAL EXAM Gen: no acute distress CV: regular rate Resp: respirations even and unlabored on room air Abd: non-distended Ext: no edema Intake/Output Summary (Last 24 hours) at 06/03/2023 0903 Last data filed at 06/02/2023 1400 Gross per 24 hour Intake 600 ml Output -- Net 600 ml Labs: CBC BMP PT/INR WBC x10 3 (/uL) Date Value 09/07/2013 5.0 WHITE BLOOD CELL COUNT-Q (Thousand/uL) Date Value 08/02/2016 7.0 WBC (10*3/?L) Date Value 06/03/2023 12.67 (H) NA Date Value 06/03/2023 139 mmol/L 09/07/2013 142 MMOL/L SODIUM-Q (mmol/L) Date Value 08/02/2016 142 No results found for: "PT" RBC x10 6 (/uL) Date Value 09/07/2013 4.16 RED BLOOD CELL COUNT-Q (Million/uL) Date Value 08/02/2016 4.69 RBC (10*6/?L) Date Value 06/03/2023 3.33 (L) K Date Value 06/03/2023 4.0 mmol/L 09/07/2013 4.7 MMOL/L POTASSIUM-Q (mmol/L) Date Value 08/02/2016 5.1 No results found for: "PTINR" PLT x10 3 (/uL) Date Value 09/07/2013 321 PLATELET COUNT-Q (Thousand/uL) Date Value 08/02/2016 242 PLT (10*3/?L) Date Value 06/03/2023 197 CALCIUM Date Value 06/03/2023 9.5 mg/dL 09/07/2013 9.7 MG/DL CALCIUM-Q (mg/dL) Date Value 08/02/2016 9.9 HGB Date Value 06/03/2023 10.5 g/dL (L) 09/07/2013 13.1 G/DL HEMOGLOBIN-Q (g/dL) Date Value 08/02/2016 15.0 CL Date Value 06/03/2023 103 mmol/L 09/07/2013 105 MMOL/L CHLORIDE-Q (mmol/L) Date Value 08/02/2016 108 aPTT HCT (%) Date Value 06/03/2023 30.8 (L) 09/07/2013 39.1 HEMATOCRIT-Q (%) Date Value 08/02/2016 44.4 BUN Date Value 06/03/2023 26 mg/dL (H) 09/07/2013 9 MG/DL UREA NITROGEN (BUN)-Q (mg/dL) Date Value 08/02/2016 14 No results found for: "APTTPAT" CREATININE Date Value 06/03/2023 1.13 mg/dL (H) 09/07/2013 0.69 MG/DL CREATININE-Q (mg/dL) Date Value 08/02/2016 0.70 XR CHEST 2 VW Result Date: 06/01/2023 Heart size and mediastinal contours appear normal no pneumothorax or edema. No pleural effusion. No consolidative pneumonia identified Thickening of the central airways is present which may represent airway inflammation or edema. Subsegmental atelectasis of the lung bases. RL: 2601 AFC: [id number] ABDOMEN PELVIS WO CONTRAST Result Date: 06/01/2023 Mild right hydronephrosis and inflammatory changes surround the right kidney. A 3 mm stone noted at the right UPJ. The right ureter has nonspecific inflammatory changes but no convincing additional stones. Patient may have recently passed a small stone The urinary bladder has thickened cordoba and a clear lumen as in a cystitis. Changes from colon resection without obstruction or recent complication. Assessment/Plan: Maritza Washington is a 58 year old female with right obstructing infected ureteral stone now s/p stent placement day 1. Urine culture with ian. Otherwise doing well. Albin Nuñez MD Urology Resident Pager: please page regional facilities specialist using [employer] [facility] 2023-06-01 17:23:03 XpertMD History & Physical DATE: 06/01/2023 SERVICE: Internal Medicine CHIEF COMPLAINT: Flank Pain HISTORY OF PRESENT ILLNESS Maritza Washington is a 58 year old female who presents to the ED with right flank pain. Patient reports it started gradually a few days ago and has been progressively getting worse. Pain is sharp, located on the right flank but radiates to mid abdominal area, severe, without any and does not have any alleviating or aggravating factors. It is associated with nausea. Patient presented to the ED where she was found to have nephrolithiasis, leukocytosis, possible pyelonephritis, and KRISTOPHER. Therefore, she is getting admitted to medicine service for evaluation and management. ALLERGIES Maritza is allergic to sulfa (sulfonamide antibiotics) and vicodin [hydrocodone-acetaminophen]. MEDICATIONS Current Facility-Administered Medications: acetaminophen (TYLENOL) tablet 650 mg, 650 mg, Oral, Q6H, Margaret Tena MD atorvastatin (LIPITOR) tablet 10 mg, 10 mg, Oral, QHS, Calvin Nova MD buPROPion SR (WELLBUTRIN SR) tablet 150 mg, 150 mg, Oral, BID, Calvin Nova MD [START ON 06/02/2023] cefTRIAXone (ROCEPHIN) 1,000 mg in NaCl 0.9% (NS) 100 mL MINI-BAG, 1,000 mg, IV Piggyback, Q24H ABX, Calvin Nova MD dextrose 50 % in water (D50W) injection 25 mL, 25 mL, Slow IV Push, PRN, Calvin Nova MD enoxaparin (LOVENOX) injection 40 mg, 40 mg, Subcutaneous, DAILY, Calvin Nova MD gabapentin (NEURONTIN) capsule 300 mg, 300 mg, Oral, QHSPRN, Calvin Nova MD glucagon (GLUCAGEN DIAGNOSTIC KIT) injection 1 mg, 1 mg, Intramuscular, PRN, Calvin Nova MD guaiFENesin (FENESIN IR) tablet 200 mg, 200 mg, Oral, Q4HPRN, Calvin Nova MD HYDROcodone-acetaminophen (NORCO 5) 5-325 mg tablet 1 tablet, 1 tablet, Oral, Q6HPRN, Calvin Nova MD lactated ringers IV infusion 1,000 mL, 1,000 mL, IV Infusion, CONTINUOUS, Margaret Tena MD methocarbamoL (ROBAXIN) tablet 500 mg, 500 mg, Oral, QID, Margaret Tena MD morpHINE (4 mg/mL) injection 4 mg, 4 mg, Slow IV Push, Q4HPRN, Calvin Nova MD, 4 mg at 06/01/23 1700 ondansetron (ZOFRAN (PF)) injection 4 mg, 4 mg, Slow IV Push, Q6HPRN, Calvin Nova MD, 4 mg at 06/01/23 1703 [START ON 06/02/2023] pantoprazole (PROTONIX) EC tablet 40 mg, 40 mg, Oral, DAILY, Calvin Nova MD sennosides-docusate sodium (SENOKOT-S) 8.6-50 mg per tablet 1 tablet, 1 tablet, Oral, QDAILYPRN, Calvin Nova MD Sliding Scale Insulin - Lispro (HumaLOG), , Subcutaneous, TID MEALS+HS, Calvin Nova MD tamsulosin (FLOMAX) capsule 0.4 mg, 0.4 mg, Oral, QHS, Margaret Tena MD Current Outpatient Medications: cefdinir 300 mg capsule, Take 1 capsule by mouth in the morning and 1 capsule in the evening., Disp: 10 capsule, Rfl: 0 glipiZIDE 10 mg tablet, Take 1 tablet by mouth in the morning., Disp: 30 tablet, Rfl: 0 atorvastatin 10 mg tablet, Take 1 tablet by mouth at bedtime., Disp: 90 tablet, Rfl: 0 gabapentin 300 mg capsule, Take 1 capsule by mouth at bedtime as needed., Disp: 90 capsule, Rfl: 0 glipiZIDE XL 5 mg 24 hr tablet, Take 1 tablet by mouth daily with breakfast., Disp: 90 tablet, Rfl: 3 BUPROPION SR 150 mg SR tablet, TAKE 1 TABLET BY MOUTH TWICE A DAY, Disp: 180 tablet, Rfl: 0 pantoprazole 40 mg EC tablet, Take 1 tablet by mouth daily., Disp: 60 tablet, Rfl: 2 metFORMIN 1,000 mg tablet, Take 1 tablet by mouth 2 (two) times daily with meals., Disp: 180 tablet, Rfl: 3 lisinopriL 5 mg tablet, Take 1 tablet by mouth daily., Disp: 90 tablet, Rfl: 3 blood sugar diagnostic (ONETOUCH ULTRA TEST) strip, Use to test glucose once a day E11.9, Disp: 100 Strip, Rfl: 1 lancets (ONETOUCH DELICA LANCETS) 30 gauge Misc, Use to test glucose once a day E11.9, Disp: 100 Each, Rfl: 1 acetaminophen (TYLENOL EXTRA STRENGTH) 500 mg tablet, Take 1 tablet by mouth every 6 (six) hours as needed for Pain for up to 20 doses., Disp: 20 tablet, Rfl: 0 albuterol 90 mcg/actuation inhaler, Inhale 2 Puffs every 4 (four) hours as needed for Wheezing or Shortness of Breath., Disp: 8.5 g, Rfl: 0 Patient's Medications START taking these medications No medications on file CONTINUE taking these medications which have NOT CHANGED ACETAMINOPHEN (TYLENOL EXTRA STRENGTH) 500 MG TABLET Take 1 tablet by mouth every 6 (six) hours as needed for Pain for up to 20 doses. ALBUTEROL 90 MCG/ACTUATION INHALER Inhale 2 Puffs every 4 (four) hours as needed for Wheezing or Shortness of Breath. ATORVASTATIN 10 MG TABLET Take 1 tablet by mouth at bedtime. BLOOD SUGAR DIAGNOSTIC ([employer] Media[employer]CH ULTRA TEST) STRIP Use to test glucose once a day E11.9 BUPROPION SR 150 MG SR TABLET TAKE 1 TABLET BY MOUTH TWICE A DAY CEFDINIR 300 MG CAPSULE Take 1 capsule by mouth in the morning and 1 capsule in the evening. GABAPENTIN 300 MG CAPSULE Take 1 capsule by mouth at bedtime as needed. GLIPIZIDE 10 MG TABLET Take 1 tablet by mouth in the morning. GLIPIZIDE XL 5 MG 24 HR TABLET Take 1 tablet by mouth daily with breakfast. LANCETS ([employer] DELICA LANCETS) 30 GAUGE MISC Use to test glucose once a day E11.9 LISINOPRIL 5 MG TABLET Take 1 tablet by mouth daily. METFORMIN 1,000 MG TABLET Take 1 tablet by mouth 2 (two) times daily with meals. PANTOPRAZOLE 40 MG EC TABLET Take 1 tablet by mouth daily. START taking Modified Medications as Prescribed No medications on file STOP taking these medications No medications on file PAST MEDICAL HISTORY Past Medical History: Diagnosis Date Colon cancer 2009, 2013 Dr. Mckenzie s/p colon resection 2009. repeat scope 03/2013 was neg and following up in 1 year H/O: hysterectomy 2004 History of colonoscopy 2016 clean; History of small bowel obstruction 2013 medically managed Hx of cholecystectomy 1997 Pap smear abnormality of cervix 20+ years ago PAST SURGICAL HISTORY Past Surgical History: Procedure Laterality Date CHOLECYSTECTOMY COLON SURGERY 2009 h/o colon cancer COLONOSCOPY Left 06/26/2017 Surgeon: Jarred Jara MD; Location: [facility] COLONOSCOPY Left 12/06/2020 Surgeon: Abdelrahman Madden MD; Location: [facility] Location COLPOSCOPY benign per pt. 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 Currently going to school for criminal justice studies. PAST FAMILY HISTORY Family History Problem Relation Age of Onset Stroke Father Hypertension Father Breast Cancer Mother late 50s Hypertension Mother Lung Cancer Mother Uterine Cancer Sister Cancer Maternal Grandfather throat REVIEW OF SYSTEMS General: No headache or dizziness. No fever or chills. Cardiovascular: No chest pain or palpitation Pulmonary: No shortness of breath or hemoptysis. GI: Positive for flank pain. Urinary: Positive for frequency and dysuria Musculoskeletal: No joint pain or muscle aches. Skin: No rashes. Neurological: No focal weakness or sensory changes. Psychiatric: No depression PHYSICAL EXAMINATION Vitals: 06/01/23 1113 06/01/23 1114 06/01/23 1324 06/01/23 1613 BP: (!) 151/92 122/67 (!) 161/88 Pulse: 88 74 103 Resp: 18 18 14 Temp: 36.3 ?C (97.4 ?F) 37.7 ?C (99.8 ?F) TempSrc: Oral SpO2: 94% 93% 100% Weight: 56.7 kg (125 lb) Height: 1.499 m (4' 11") General: awake, Mild distress HEENT: NC, AT, anicteric sclera. Neck supple. Neck: no JVD no lymphadenopathy CV: RRR, normal S1 and S2 no MRG. Lungs: clear to auscultation bilaterally. No wheezing, rales, or stridor Abdomen: soft, NT, ND, (+)BS Skin: no rashes Extremities: no clubbing, cyanosis, edema Neuro: Aox 3. Symmetric motor exam. Psych: normal affect Vitals: 06/01/23 1113 06/01/23 1114 06/01/23 1324 06/01/23 1613 BP: (!) 151/92 122/67 (!) 161/88 Pulse: 88 74 103 Resp: 18 18 14 Temp: 36.3 ?C (97.4 ?F) 37.7 ?C (99.8 ?F) TempSrc: Oral SpO2: 94% 93% 100% Weight: 56.7 kg (125 lb) Height: 1.499 m (4' 11") LABS AND IMAGING Recent Results (from the past 24 hour(s)) CBC WITH DIFF Collection Time: 06/01/23 11:31 AM Result Value Ref Range WBC 12.32 (H) 4.30 - 11.10 10*3/?L RBC 4.08 3.93 - 5.25 10*6/?L HGB 12.7 11.6 - 15.0 g/dL HCT 37.2 35.7 - 45.2 % MCV 91.2 80.6 - 95.5 fL MCH 31.1 25.9 - 32.8 pg MCHC 34.1 31.6 - 35.1 g/dL RDW-SD 41.0 39.0 - 49.9 fL RDW-CV 12.1 12.0 - 15.5 % PLT 273 166 - 358 10*3/?L MPV 10.6 9.5 - 12.9 fL NRBC/100 WBC 0.0 0.0 - 10.0 /100 WBCs NRBC x10 3 <0.01 10*3/?L GRAN MAT (NEUT) % 75.9 % IMM GRAN % 0.30 % LYMPH % 10.6 % MONO % 12.3 % EOS % 0.5 % BASO % 0.4 % GRAN MAT x10 3 (ANC) 9.36 (H) 1.88 - 7.09 10*3/uL IMM GRAN x10 3 0.04 0.00 - 0.06 10*3/uL LYMPH x10 3 1.30 (L) 1.32 - 3.29 10*3/uL MONO x10 3 1.51 (H) 0.33 - 0.92 10*3/uL EOS x10 3 0.06 0.03 - 0.39 10*3/uL BASO x10 3 0.05 0.01 - 0.07 10*3/uL URINALYSIS Collection Time: 06/01/23 11:31 AM Result Value Ref Range APPEARANCE Cloudy (A) Clear COLOR Peyton (A) Yellow PH 6.0 4.8 - 8.0 SP GRAVITY 1.011 1.003 - 1.030 GLU U QUAL Normal Normal BLOOD 2+ (A) Negative KETONES 5 mg/dL (A) Negative PROTEIN 100 mg/dL (A) Negative UROBILIN 4.0 mg/dL (A) Normal BILIRUBIN Negative Negative NITRITE Positive (A) Negative LEUK NELLY 250/uL (A) Negative RBC/HPF 90 (H) 0 - 3 HPF WBC/HPF >182 (H) 0 - 5 HPF BACTERIA Few (A) Negative COMP. METABOLIC PANEL (81956) Collection Time: 06/01/23 11:31 AM Result Value Ref Range NA 136 135 - 145 mmol/L K 4.3 3.5 - 5.0 mmol/L CL 102 98 - 108 mmol/L CO2 TOTAL 26 23 - 31 mmol/L AGAP 8 2 - 16 BUN 23 7 - 23 mg/dL GLUCOSE 154 (H) 70 - 110 mg/dL CREATININE 1.36 (H) 0.50 - 1.04 mg/dL TOTAL BILI 0.9 0.1 - 1.1 mg/dL CALCIUM 9.3 8.6 - 10.6 mg/dL T PROTEIN 6.9 6.3 - 8.2 g/dL ALBUMIN 4.2 3.5 - 5.0 g/dL ALK PHOS 190 (H) 34 - 122 U/L ALTv 62 (H) 5 - 35 U/L AST(SGOT) 54 (H) 13 - 40 U/L eGFR 45.0 mL/min/1.73m2 LIPASE Collection Time: 06/01/23 11:31 AM Result Value Ref Range LIPASE 39 0 - 220 U/L Radiology XR CHEST 2 VW Result Date: 06/01/2023 Heart size and mediastinal contours appear normal no pneumothorax or edema. No pleural effusion. No consolidative pneumonia identified Thickening of the central airways is present which may represent airway inflammation or edema. Subsegmental atelectasis of the lung bases. RL: 2601 AFC: 43514 ABDOMEN PELVIS WO CONTRAST Result Date: 06/01/2023 Mild right hydronephrosis and inflammatory changes surround the right kidney. A 3 mm stone noted at the right UPJ. The right ureter has nonspecific inflammatory changes but no convincing additional stones. Patient may have recently passed a small stone The urinary bladder has thickened cordoba and a clear lumen as in a cystitis. Changes from colon resection without obstruction or recent complication. ASSESSMENT: Maritza Washington is a 58 year old female who presents with Flank Pain . Principal Problem: Acute abdominal pain Active Problems: Pyelonephritis KRISTOPHER (acute kidney injury) Nephrolithiasis Fatigue Anemia Elevated LFTs GERD with esophagitis HLD (hyperlipidemia) Anxiety GERD (gastroesophageal reflux disease) Type 2 diabetes mellitus HTN (hypertension) Leukocytosis Plan: 06/01/2023 Notes, events, labs, and imaging reviewed. Home medications reviewed and reconciled as indicated. - Admit to medical floor. -Pyelonephritis secondary to nephrolithiasis. Start IV ceftriaxone and IV fluid. Check blood and urine cultures. Monitor fever curve and CBC. - Monitor kidney function avoid nephrotoxins including ketorolac. Renally dose medications. - Consulted urology team, appreciate recommendations. - Hold home losartan given KRISTOPHER. Monitor vital signs and telemetry. - Restart home atorvastatin. Start SSI. Check hemoglobin A1c, lipid panel, TSH. - Restart home bupropion. - Restart home Protonix and Flomax. - Check a.m. labs, replete electrolytes if needed. Monitor kidney function. Monitor CBC. -As needed pain and nausea medications. Discussed the case with: [ ] quantitative consultant [x ] nursing staff [x ] patient/family [x] ED provider Calvin Nova MD [employer] This note was created using a voice-recognition headliner installer system. Incorrect words, phrases, or punctuation may have been missed during proofreading and need to be interpreted in the context. If an error is discovered when reviewing the document, please contact Dr. Nova directly for clarification. [facility] Procedure Notes Date/Time Note Provider Source 2023-06-12 18:13:03 Procedure(s): UT CYSTO BLADDER W/URETERAL CATHETERIZATION; UT CYSTO W/INSERT URETERAL STENT; XR RETROGRADE INTRAVENOUS PYELOGRAM FULL OPERATIVE NOTE Date of Surgery: 06/12/2023 Faculty physician: Rosey MAZA Resident physician: Gwen MAZA Anesthesia Type: general - GETA Pre-operative diagnosis: nephrolithiasis Post-operative diagnosis: mid ureteral stricture at the level of the iliac bifurcation, concern for chronic hydronephrosis. Procedures: Ureteroscopy (CPT 69127) Retrograde pyelogram (CPT 05128 + modifier 26 to include professional component for interpretation) Cystoscopy with right ureteral stent placement (35296) Indications: 3mm right proximal ureteral stone, right hydronephrosis Findings: Rigid cystoscopy: Normal and orthotopic external urethral meatus, no urethral strictures. Normal bladder mucosa, no lesions/masses, no diverticulum. Both ureteral orifices seen and effluxing clear urine. Retrograde pyelogram showed mild hydronephrosis, evidence of narrowed ureteral segment visualized in the distal ureter, contrast was able to pass up into the kidney. Kidney noted to have blunted calyces and infundibula. Ureteroscopy: Upon entry into the ureter the mucosa was noted to be pale. Was unable to pass the rigid ureteroscope or the flexible ureteroscope beyond the distal ureter at the level of the iliac bifurcation. There was noted to be circumferential scar tissue. Upon advancement of the flexible cystoscopy under live fluoroscopy it was noted that the ureteroscope was buckling and bending as it came in contact with the scarred portion of the ureter. Further advancing of the scope was aborted as to avoid injury to the ureter. Complications: none Estimated blood loss: <5 mL Specimens: stones for analysis Other important information: 22 cm 6Fr double J ureteral stent without the string placed in the right ureter Fluoroscopy time: 23.2 seconds Reference air kerma: 6.24 mGy Procedure: After informed consent was obtained, the patient was taken to the operating room. A time-out procedure was conducted to confirm the correct patient and procedure. The patient underwent general anesthesia. The patient was prepped and draped in the usual sterile fashion using Betadine in the lithotomy position. A 22-fr rigid cystoscope was introduced into the bladder through the urethra. The previous stent was grasped and pulled to the urethral meatus and a sesor wire was cannulated into the right UO up to the kidney and placement was confirmed under fluorscopy. A 5 F open ended ureteral catheter was was cannulated into the R UO and a RGP was obtained by injecting 10cc of contrast through the open ended catheter. showed mild hydronephrosis, evidence of narrowed ureteral segment visualized in the distal ureter, contrast was able to pass up into the kidney. Kidney noted to have blunted calyces and infundibula The open ended catheter was removed. The sensor wire was then securely fastened. A short semirigid ureteroscope was advanced alongside the sensor wire into the ureter. Upon entry into the ureter the mucosa was noted to be pale. Was unable to pass the rigid ureteroscope beyond the distal ureter at the level of the iliac bifurcation. A second sensor wire was placed through the rigid scope to help dilate the scarred portion of the ureter however was unable to pass the scope.The second sensor wire was removed and a super stiff wire was then advanced up to the right kidney and placement was confirmed with fluoroscopy. The rigid ureteroscope was then swapped for a flexible ureteroscope which was passed over the super stiff wire. The flexible ureteroscope was also unable to be advanced beyond the distal ureter at the level of the iliac bifurcation. There was noted to be circumferential scar tissue. Upon advancement of the flexible cystoscopy under live fluoroscopy it was noted that the ureteroscope was buckling and bending as it came in contact with the scarred portion of the ureter. Further advancing of the scope was aborted as to avoid injury to the ureter. The flexible ureteroscope was swapped for a cystoscope and a 22cm 6fr Bulgarian double-J ureteral catheter without the string was placed into the right ureter under direct vision. The proximal coil of the stent was confirmed to be in the R renal pelvis under fluoroscopy and the distal coil of the stent was visualized in the bladder. All instrumentation was removed. The patient was awaken from anesthesia, extubated, and transferred to the recovery room in good condition. Guera Hidalgo PGY2 Urology [facility] Associated attestation - Carlos Gomes MD - 06/12/2023 7:26 PM CDT I saw and examined the patient on 06/12/2023 and agree with the resident's note as written by Dr Hidalgo. I actively participated in the decision-making process. Please see the resident's note for additional details. I was present for the entire procedure. Carlos Gomes MD [facility] 2023-06-02 13:13:11 FULL OPERATIVE NOTE Date of Surgery: 06/02/2023 Faculty physician: Rosey Anesthesia Type: general - GETA Pre-operative diagnosis: hx of previous urolithiasis, right flank pain, right HU & HN, fever, 3 mm obstructing proximal ureteral stone Post-operative diagnosis: right flank pain, right HU & HN, distal right ureteral stricture , 3 mm obstructing proximal ureteral stone Procedures: Cystoscopy with right ureteral stent placement (76202) Retrograde pyelogram (CPT 65157 + modifier 26 to include professional component for interpretation) Findings: normal urethral and bladder mucosa, orthotopic bilateral Uo's, right RGP with distal ureteral stricture and proximal HU and severe HN with obstructing proximal 3 mm stone Complications: none Estimated blood loss: 0 mL Specimens: none Drains: Other important information: 22 cm x 6 Fr double J ureteral stent without the string placed on the right Informed consent was obtained. The patient was taken to the operating room. Time-out procedure was conducted in OR. She was given sedation, and then prepped and draped in the usual standard sterile fashion, and placed in the lithotomy position. A rigid cystoscope was introduced into the bladder through the urethra. A urine specimen was obtained for culture. Bilateral ureteral orifices were identified. Using an open ended ureteral catheter, RGP was performed . A sensor guidewire was advanced into the right ureter and into the renal pelvis without resistance under fluoroscopic guidance. A 22cm 6.0 -Bulgarian double-J ureteral stent was placed into the ureter over the guidewire under direct vision. The wire was removed. The proximal coil of the stent was confirmed to be in the renal pelvis under fluoroscopy and the distal coil was confirmed to be in the bladder under direct vision. \\ The patient was then extubated and transferred to the recovery room in good condition. Plan IV abx as per primary team for next 24 hrs, pending blood culture Primary team to consider antifungal with ian on recent Ucx Tamsulosin 0.4 mg and Ditropan 10 mg PO daily for stent spasms Provisional plan for Right [facility] 06/13/2023 [place] Carlos Gomes MD [facility] Notes Date/Time Note Provider Source 2023-09-25 08:13:24 Access Center: [facility] Open Encounter Maintenance Chart Review: Patient was seen in Clinic for her 2 follow up vaccines. Nurse Note: RN closing encounter in [facility] r/t clinical action items completed. Colette Ray RN [facility] Access Center Triage Nurse Colette Ray RN [facility] 2023-09-16 10:27:39 Called pt and asked if she would like her MRX emailed, pt refused and would like it mailed instead. Will have Dr. Thurman sign MRX and will send it out today. Closing encounter. Peyton Elizalde 09/16/2023 10:28 AM Peyton Elizalde [facility] 2023-09-16 10:22:22 Outcome Denied 09/15/23 This product is non formulary and not preferred. Preferred products include Accu-Chek blood glucose test strips. -Patient contacted and notified of denial. She will callback when home to report the type of glucometer currently being used. Lucia Gray LVN [facility] 2023-09-16 10:06:32 Copied from [facility] #[id number]. Topic: Clinical - Medical Advice >> Sep 16, 2023 10:04 AM Patient Business Development Officer wrote: Maritza Washington is a 58 year old female Pt is calling to get her glasses rx. Pt last communicated with on 07/31 and he stated that he would send her the rx through [employer] on 08/07. The pt has still not received her glasses rx and would like to have it mailed to her address at [address], [address], [place] [address] . Please contact and advise. Deepthi Thayer [facility] 2023-09-15 11:48:51 KHARI for Glucoshine Test Strips initiated on 09/15/2023: Diego: [id number] PA Rx #: [id number] Will provide with updates as recd Lucia Gray LVN [facility] 2023-09-12 11:12:15 Left Vm for pt Angeline Ackerman [facility] 2023-09-12 10:55:04 I can remind her at the follow up apt [facility] 2023-09-12 10:26:07 Images from the original note were not included. Lucia Gray LVN You26 minutes ago (9:56 AM) PF Just a lab appt. She said she'd forget to come if it's not scheduled and requested a reminder call for this visit too. Thank you [facility] to schedule a lab appoinment. If patient calls back please help schedule a lab appointment around dec Babs Choi [facility] 2023-09-12 09:32:59 Does patient need to come in for office visit or just a lab appointment Babs Choi [facility] 2023-09-11 15:22:21 Contact was made with Maritza Washington on 09/11/2023 15:22 and informed of lab results/recommendations/new med per MD notes. The patient verbalized understanding to all. Martha, Patient reports that she has a long hx of fatty liver and also had Hepatitis as a child. PSS patient requested that you please contact her to schedule a visit for a future lab draw to be collected in 6 weeks. Thank you. Lucia Gray LVN [facility] 2023-09-10 17:28:40 I sent levothyroxine 75mcg to start daily for pt thyroid. Take first thing in am on empty stomach nothing to eat for 30mins after. Repeat labs in 3 months, in addition we need to do more labs r/t elevated LFTS. [facility] 2023-09-10 10:00:00 Images from the original note were not included. Venipuncture collection performed by clean technique on the left anticubitus. Total of 1 attempts were made. Slight pressure and a bandage/dressing were applied to the site(s). The patient experienced no complications. The following specimens were processed according to instructions and sent to [facility] laboratories per lab order on 09/10/2023 : LT BLUE SST 1 RED LAV 2 PPT DK GREEN (LiHep) DK GREEN (SodH) SIMON DK BLUE (K2) DK BLUE (S) ACD Blood Culture NIPT/NTD Patient has been identified by and name and was provided with cup, antiseptic towelette, and clean catch instructions. 1 urine specimen(s) sent. Unpreserved 1 Urine Culture Aptima tube Other urine T [facility] 2023-09-06 18:27:14 LM for pt to return call to [facility] regarding next two rabies vaccine appt dates to insure pt has correct dates in her notes. Pt should RTC for vaccination on 09/09/2023 and 09/16/2023. [facility] 2023-09-06 12:48:05 Spoke to pt by phone re: nausea and tingling feet post Rabavert injection #2. Informed pt that nausea is a common side effect. Pt instructed to go to ER for worsening tingling in feet. Pt verbalized understanding. Pt is scheduled for RabAvert injection #3 on 09/09/23. Norah Chery RN 09/06/2023 12:52 PM Norah Chery RN [facility] 2023-09-06 09:13:06 Maritza Washington is a 58 year old female Pt says she left her paperwork including papers for her rabies shots in the clinic on 09/04 and would like for them to be held for her until she can pick them up on Friday. Pt was also extremely rude to me while I was trying to assist her, and refused to verify demographic information. After being rude to me and hanging up on me she proceeded to call back over and over and be rude to every other employee she was connected with in the access center. Holly Vega [facility] 2023-09-03 13:59:07 Notified pt that she may receive her remaining rabies vaccines in [facility]. Yodit Roca RN [facility] 2023-09-03 13:41:01 Copied from [facility] #[id number]. Topic: Appointment - Appointment Request >> Sep 03, 2023 1:40 PM Patient Business Development Officer wrote: Maritza Washington is a 58 year old female and is calling to find out if the [facility] urgent care has the rabies vaccine. She is needing her 2nd dose and had her first dose yesterday. Please advise as the pt needs to know before tomorrow & if we don't have the vaccine she wants to know where she can go. Bhanu Adams [facility] 2023-09-02 20:44:05 Pt states she has to leave right now. Pt left prior to vitals reassessment and after shot reassessment. Pt given Rx papers and discharge paperwork. Pt left ambulatory by self. [facility] 2023-09-02 20:42:59 Patient states "I need to go right now." Unable to get discharge vitals. [facility] 2023-09-02 19:33:49 Patient arrived ambulatory to ED c/o a raccoon that attacked her this AM around 0700 at home. Patient has scratch kennedy to mid abd. Requesting rabies vaccine. Went to ER this AM and got pain medication and TDAP. ILT Yvette Hodges RN [facility] 2023-09-02 19:23:00 [facility] Emergency Department Note Patient Name: Maritza Washington Date of : 1965 58 year old female Treatment Room: [place] [address]/[id number] Primary Care Physician: Davy Manley Patient Escorted by: Self [9] Mode of Arrival: Personal means [1] EMS Treatment Prior to ED Arrival: Travel and Exposure Screening: Symptoms Does patient have any of these symptoms?: (not recorded) Exposure Screening Has patient had contact with someone with a communicable disease in the last month?: (not recorded) Diseases exposed to:: (not recorded) Is Patient ?: (not recorded) Exposure Date: (not recorded) Chief Complaint: Chief Complaint Patient presents with BITE raccoon History of Present Illness: 58 yo female presenting to the ED, requesting a Rabies vaccination, she states that she was attacked by a Racoon earlier today and suffered some scratches in her lower abdomen. History provided by: Patient clinical investigator used: No Past Medical History/Immunizations: Past Medical History: Diagnosis Date Colon cancer 2009, 2013 Dr. Mckenzie s/p colon resection 2009. repeat scope 03/2013 was neg and following up in 1 year H/O: hysterectomy 2004 History of colonoscopy 2016 clean; History of small bowel obstruction 2013 medically managed Hx of cholecystectomy 1997 Pap smear abnormality of cervix 20+ years ago Allergies: Allergies Allergen Reactions Hydrocodone-Acetaminophen Itching and Rash Sulfa (Sulfonamide Antibiotics) Nausea and/or Vomiting Past Social History: Tobacco Use Every Day; 0.5 packs/day; Smoked an average of 0.5 packs/day for 30.0 years; Types: Cigarettes Smokeless Tobacco: Never used smokeless tobacco. Alcohol Use No. Drug Use No. Sexual Activity Sexually active; Partners: Male; Control/Protection: Surgical. Comments: Past Surgical History: Past Surgical History: Procedure Laterality Date CHOLECYSTECTOMY COLON SURGERY 2009 h/o colon cancer COLONOSCOPY Left 06/26/2017 Surgeon: Jarred Jara MD; Location: [facility] COLONOSCOPY Left 12/06/2020 Surgeon: Abdelrahman Madden MD; Location: [facility] COLPOSCOPY benign per pt. normal pap since CYSTOSCOPY WITH INSERTION STENT URETER (SHX) Right 06/02/2023 Surgeon: Carlos Gomes MD; Location: [facility] ESOPHAGOGASTRODUODENOSCOPY N/A 06/27/2016 Surgeon: Jarred Jara MD; Location: [facility] Location ESOPHAGOGASTRODUODENOSCOPY N/A 06/26/2017 Surgeon: Jarred Jara MD; Location: [facility] ESOPHAGOGASTRODUODENOSCOPY Left 12/06/2020 Surgeon: Abdelrahman Madden MD; Location: [facility] HYSTERECTOMY kept ovaries; dysmenorrhea RETROGRADE PYELOGRAM Right 06/02/2023 Surgeon: Carlos Gomes MD; Location: [facility] TRIGGER FINGER RELEASE Left 05/27/2017 Surgeon: Prashant El MD; Location: [facility] TUBAL LIGATION URETEROSCOPIC STONE MANIPULATION Right 06/12/2023 Surgeon: Carlos Gomes MD; Location: [facility] Review of Systems: Review of Systems Constitutional: Negative for activity change, appetite change, chills, diaphoresis, fatigue and fever. HENT: Negative for congestion, ear discharge, ear pain, rhinorrhea, sore throat and trouble swallowing. Eyes: Negative for photophobia, pain, discharge and redness. Respiratory: Negative for cough, chest tightness, shortness of breath and wheezing. Cardiovascular: Negative for chest pain, palpitations and leg swelling. Gastrointestinal: Negative for abdominal distention, abdominal pain, blood in stool, constipation, nausea and vomiting. Genitourinary: Negative for dysuria, urgency, polyuria, frequency, hematuria and flank pain. Musculoskeletal: Negative for arthralgias, joint swelling, myalgias and neck stiffness. Skin: Negative for color change, rash and wound. Neurological: Negative for dizziness, seizures, syncope, facial asymmetry, weakness, light-headedness, numbness and headaches. Psychiatric/Behavioral: Negative for agitation, confusion, hallucinations and self-injury. The patient is not nervous/anxious. Hematological: Negative for adenopathy and cold intolerance. Does not bruise/bleed easily. Endocrine: Negative for cold intolerance, polydipsia and polyuria. Physical Exam: ED Triage Vitals Weight Actual or estimated Height BP Pulse Resp Temp Temp src SpO2 Measured on Physical Exam Vitals and nursing note reviewed. Constitutional: General: She is not in acute distress. Appearance: She is well-developed. She is not diaphoretic. HENT: Head: Normocephalic and atraumatic. Right Ear: External ear normal. Left Ear: External ear normal. Nose: Nose normal. Mouth/Throat: Pharynx: No oropharyngeal exudate. Eyes: General: No scleral icterus. Right eye: No discharge. Left eye: No discharge. Conjunctiva/sclera: Conjunctivae normal. Pupils: Pupils are equal, round, and reactive to light. Neck: Thyroid: No thyromegaly. Vascular: No JVD. Trachea: No tracheal deviation. Cardiovascular: Rate and Rhythm: Normal rate and regular rhythm. Heart sounds: Normal heart sounds. No murmur heard. No friction rub. No gallop. Pulmonary: Effort: Pulmonary effort is normal. No respiratory distress. Breath sounds: Normal breath sounds. No stridor. No wheezing or rales. Chest: Chest wall: No tenderness. Abdominal: General: Bowel sounds are normal. There is no distension. Palpations: Abdomen is soft. There is no mass. Tenderness: There is no abdominal tenderness. There is no guarding or rebound. Musculoskeletal: General: No tenderness or deformity. Normal range of motion. Cervical back: Normal range of motion and neck supple. Lymphadenopathy: Cervical: No cervical adenopathy. Skin: General: Skin is warm and dry. Coloration: Skin is not pale. Findings: No erythema or rash. Neurological: Mental Status: She is alert and oriented to person, place, and time. Cranial Nerves: No cranial nerve deficit. Motor: No abnormal muscle tone. Coordination: Coordination normal. Deep Tendon Reflexes: Reflexes are normal and symmetric. Reflexes normal. Psychiatric: Behavior: Behavior normal. Thought Content: Thought content normal. Judgment: Judgment normal. Radiology: No orders to display Lab Results: Lab Results - No data to display EKG: If EKG completed, see Procedure Note. Orders and Treatments: No orders of the defined types were placed in this encounter. No orders of the defined types were placed in this encounter. First Provider Eval: ED Events Date/Time Event User Comments 09/02/231932 Medical Screening Begins JOSE GLEASON MD -- 09/02/231932 First Provider Evaluation JOSE GLEASON MD -- ED COURSE Patient received the appropriate treatment, she will DC Home with instructions to follow up at the [facility] for her following vaccinations Diagnosis/Impression as of 09/02/232007 Raccoon bite, initial encounter Rabies exposure Procedures: Procedures MDM: Medical Decision Making Problems Addressed: Rabies exposure: self-limited or minor problem Raccoon bite, initial encounter: self-limited or minor problem Risk OTC drugs. Prescription drug management. Flowsheet Documentation: Scoring Tools: No data recorded Disposition/Condition: ED Disposition None Discharge Medications: Patient's Medications START taking these medications No medications on file CONTINUE taking these medications which have NOT CHANGED BLOOD SUGAR DIAGNOSTIC ([employer] PharmaceuticalsTOUCH ULTRA TEST) STRIP Use to test glucose once a day E11.9 GLIPIZIDE 10 MG TABLET Take 1 tablet by mouth in the morning. IBUPROFEN 800 MG TABLET Take 1 tablet by mouth every 6 (six) hours as needed for Pain (scale 4-6) for up to 30 doses. LANCETS ([employer] PharmaceuticalsTOUCH DELICA LANCETS) 30 GAUGE MISC Use to test glucose once a day E11.9 LISINOPRIL 5 MG TABLET Take 1 tablet by mouth daily. METFORMIN 1,000 MG TABLET Take 1 tablet by mouth 2 (two) times daily with meals. METHOCARBAMOL 500 MG TABLET Take 1 tablet by mouth 4 (four) times daily. OXYBUTYNIN CHLORIDE 5 MG TABLET Take 1 tablet by mouth in the morning and 1 tablet in the evening. TAMSULOSIN (FLOMAX) 0.4 MG 24 HR CAPSULE Take 1 capsule by mouth in the morning. START taking Modified Medications as Prescribed No medications on file STOP taking these medications No medications on file Follow-up: Electronically signed by: Jose Gleason MD 09/02/231946 Jose Gleason MD 09/02/232009 [facility] 2023-08-29 15:48:51 Spoke to pt informed her: Please inform patient that XRAY is negative for any acute fracture, they see a old fracture to left clavicle and an age indeterminate fracture to left 6th rib, meaning likely old injury. Please have her follow up with PCP Valentina Abraham MA [facility] 2023-08-29 15:34:17 Maritza Washington is a 58 year old female patient returning missed call for results. Would like a call back to go over them. Please advise. Shane Persaud [facility] 2023-08-05 19:09:00 [facility] ([facility]) EMERGENCY PROVIDER REPORT REPORT#:[id number] REPORT STATUS: Signed DATE:08/05/23 TIME: 1908 PATIENT: MARITZA WASHINGTON UNIT #: [id number] ROOM/BED: AGE: 58 SEX: F PCP PHYS: Jovana Wbeer MD SERVICE AUTHOR: Parker Benitez MD * ALL edits or amendments must be made on the electronic/computer document * HPI-General Illness Free Text HPI Notes Free Text HPI Notes 58-year-old female, right thumb pain. Patient notes that it is most tender along the pad palm at the base of the thumb. Denies injury, denies hyperextending the thumb, notes that she does type and write at work, patient also notes that she has been preparing/boxing her belongings for a move. General Initial Greet Date/Time 08/05/23 1850 Presentation Chief Complaint R thumb pain Review of Systems Review of Systems Musculoskeletal Reports: Joint pain. Denies: Joint swelling. Past Medical History - Adult Stated Complaint HAND PAIN Allergies Coded Allergies: Sulfa (Sulfonamide Antibiotics) (Mild, CHILDHOOD REACTION 08/05/23) hydrocodone bit (From Vicodin) (Mild, ITCHING, RASH 08/05/23) Home Medications Active Scripts traMADol (ULTRAM) 50-100 MG PO Q6H PRN PRN ACUTE PAIN traMADol (ULTRAM) 50-100 MG PO Q6H PRN PRN ACUTE PAIN #20 TABS Prov: 05/30/[address] (PROTONIX) 40 MG PO DAILY ONDANSETRON (ZOFRAN) 2 MG PO Q6H PRN PRN NAUSEA AND VOMITING Discontinued Scripts CEFDINIR (OMNICEF) 300 MG PO Q12H CEFDINIR (OMNICEF) 300 MG PO Q12H #14 CAPS Prov: 05/30/23 DC: 08/05/231899 Therapy completed KETOROLAC (TORADOL) 10 MG PO Q6H PRN PRN PAIN KETOROLAC (TORADOL) 10 MG PO Q6H PRN PRN PAIN #20 TABS Prov: 05/27/23 DC: 08/05/231899 Therapy completed ONDANSETRON ODT (ZOFRAN ODT) 4 MG PO Q6H PRN PRN NAUSEA/VOMITING ONDANSETRON ODT (ZOFRAN ODT) 4 MG PO Q6H PRN PRN NAUSEA/VOMITING #15 TABS Prov: 05/27/23 DC: 08/05/231899 Therapy completed PHENAZOPYRIDINE (AZO STANDARD) 97.5 MG PO BID PHENAZOPYRIDINE (AZO STANDARD) 97.5 MG PO BID #14 TABS Prov: 05/27/23 DC: 08/05/231899 Therapy completed traMADol (ULTRAM) 50 MG PO Q8H PRN PRN PAIN SCALE 3-7 Reported Medications NICOTINE (NICODERM CQ 14 MG) 1 PATCH TRANSDERM DAILY ESTRADIOL (ESTRACE) 0.5 MG PO Q48HR PRN ESTROGEN REPLACEMENT Past Medical History: Reports: Cancer (colon). Past Surgical History: Reports: Hysterectomy. Additional Surgical History colon resection Smoking status for patients 13 years old or older: Current every day smoker Physical Exam Vital Signs Vital Signs First Documented: Result Date Time Pulse Ox 97 08/04 1852 B/P 151/79 08/04 1852 B/P Mean 103 08/04 1852 O2 Delivery Room air 08/04 1852 Temp 36.7 08/04 1852 Pulse 66 08/04 1852 Resp 16 08/04 1852 Last Documented: Result Date Time Pulse Ox 97 08/04 1852 B/P 151/79 08/04 1852 B/P Mean 103 08/04 1852 O2 Delivery Room air 08/04 1852 Temp 36.7 08/04 1852 Pulse 66 08/04 1852 Resp 16 08/04 1852 Review of Vital Signs Reviewed Physical Exam General/Const General/Const Awake, Alert, Well appearing Resp/Chest Respiratory/Chest Breath sounds NL, Breath sounds = bilat, No respiratory distress, No rales, No rhonchi, No wheezing Cardiovascular Cardiovascular Heart rate NL, Regular rhythm, Heart sounds NL, Cap refill not delayed, Peripheral circulation NL Abdomen/GI Abdomen/GI Soft, Non-tender, No guarding, No rebound MS Wrist/Hand Wrist/Hand Inspection NL, No swelling, No erythema, Non-tender, No deformity, Neurologic intact, Vascular intact, No clubbing/cyanosis Neurologic Neurologic Oriented X3, Speech NL, No motor deficits, No sensory deficits Re-Evaluation MDM Free Text MDM Notes Free Text MDM Notes 58-year-old female, 1 week of thumb pain. -On exam, the thenar eminence is more tender to palpation. No muscle atrophy, no numbness or weakness, no swelling of MTP noted. -Doubt gout, trigger finger, fracture, carpal tunnel. Doubt metacarpophalangeal ulnar ligament rupture, symptoms inconsistent with Decore vein tenosynovitis -thenar eminence is tender to palpation, patient notes that she is using, consider overuse injury? Patient Discharge Departure Vital Signs/Condition Vital Signs First Documented: Result Date Time Pulse Ox 97 08/04 1852 B/P 151/79 08/04 185 B/P Mean 103 08/04 1852 O2 Delivery Room air 08/04 1852 Temp 36.7 08/04 1852 Pulse 66 08/04 1852 Resp 16 08/04 1852 Last Documented: Result Date Time Pulse Ox 97 08/04 185 B/P 151/79 08/04 185 B/P Mean 103 08/04 1852 O2 Delivery Room air 08/04 1852 Temp 36.7 08/04 1852 Pulse 66 08/04 1852 Resp 16 08/04 1852 All vital signs available at the time of this entry have been reviewed. Clinical Impression Clinical Impression Primary Impression: Thumb pain Disposition Decision Discharge )( Discharged to Home Yes )( Time 190 )( Date 08/05/23 Discharge/Care Plan Patient Instructions ED Hand Sprain Additional Instructions You were seen in the ER with thumb pain. We did a detailed history and physical , noting where the pain was, as well as testing of the nerves, tendons, ligaments, and muscles of the hand including the thumb. The description of your pain and exam does not fit with common diagnoses such as trigger finger, carpal tunnel, arthritis. Please continue to take NSAIDs such as ibuprofen, Motrin, Advil/Aleve as needed for pain. Please continue supportive care, using your brace, and avoiding any sort of heavy lifting or overuse of your thumb. If pain continues, please follow-up with a hand specialist. Referrals Provider Referral: Candace Valle MD Address: [address] [place] [phone] at [phone] RPT #:[id number] END OF REPORT [facility] 2023-08-01 16:15:33 I will print and transmit rx on Friday morning first thing. I will MyChart Mrs. Washington to let her know. Thanks, Dr. Thurman [facility] 2023-07-31 14:06:00 Copied from [facility] #[id number]. Topic: Clinical - Medical Advice >> July 31, 2023 2:04 PM Patient Business Development Officer wrote: Pt is calling to have their eye glasses rx emailed to [email or web address]. Pt missed placed their rx and need a new one emailed to them. Please contact and advise. Deepthi Thayer [facility] 2023-07-10 13:55:32 Procedure was cancelled. Karyna Martínez RN [facility] 2023-07-07 13:04:44 LVM for stent removal appointment with Dr. Gomes for 07/[address] Gomes ok to OB Latrice Murphy [facility] 2023-07-07 11:01:24 Rafal Thanks [facility] 2023-07-07 10:47:24 Please advise which date to OB for Stent removal to offer at [facility] 07/10 at 3pm Mon / at 3pm Fri 07/24 at 1pm T [facility] 2023-07-07 10:47:06 [employer] message sent of Dr. Gomes response. Attempted to reach the patient for a second time and LVM. ILT Lennie Chau LVN [facility] 2023-07-07 09:56:13 Please offer RTC and removal stent and no stone seen, could be concealed by stent Stent needs to be removed given that it seems encrusted, even after removal of stent, she UTI/ sepsis may recur due to ureteral stricture and HN. Chronic pain secondary to multiple conditions Patient can also consider second opinion with another provider at [facility] or outside Please ask patient to RTC with her sister/ family member Thanks [facility] 2023-07-07 09:40:03 Appt canceled and LVM for patient to follow up with Dr. Gomes since the patient does not want to be seen by Dr. Florez. Message routed to Dr. Gomes for notification [facility] 2023-07-07 09:27:58 Copied from [facility] #[id number]. Topic: Appointment - Cancel Appointment >> Jul 07, 2023 9:26 AM Patient Business Development Officer wrote: Maritza Washington Pt calling to cancel procedure scheduled for 07/08/23 due to pt stating that She does not want to be seen By Dr. Florez. Please cancel per pts request and advise. PH: Sania Ann [facility] 2023-06-25 16:33:44 Spoke with patient and gave NUTRITION SPECIALIST comments. Patient verbalized understanding. Next procedure date is not until 07/07/2023. Patient requesting sooner appt and requesting to speak with Dr. Florez about "the state" of her kidneys. Lennie Chau [facility] 2023-06-25 16:14:53 Copied from [facility] #[id number]. Topic: Clinical - Medical Advice >> Jun 25, 2023 4:14 PM Patient Business Development Officer wrote: Maritza Washington is a 58 year old female returning a call from the clinic regarding CT results. Please f/u Work Phone Not on file. Tiffany Ley [facility] 2023-06-25 15:48:44 LVM to call back regarding CT results. [facility] 2023-06-20 15:46:52 Spoke with patient and notified her that her surgery was canceled and that we will follow up after her CT is resulted. Patient verbalized understanding. Lennie Chau LVN [facility] 2023-06-20 14:43:38 Copied from [facility] #[id number]. Topic: Customer Service - Missed Call from Provider >> Jun 20, 2023 2:42 PM Patient Business Development Officer wrote: Maritza Washington is a 58 year old female Patient stating she is returning a call from Evy. [phone] (home) Bethany Padilla [facility] 2023-06-20 14:24:19 Call patient, regarding her concerns, Patient did not answer,left voicemail for patient to return call here at the clinic. [facility] [address] [place], [place] [address] P [phone]/F [phone] Con Walsh MA [facility] 2023-06-20 13:04:14 Copied from [facility] #[id number]. Topic: Clinical - Medical Advice >> Jun 20, 2023 1:03 PM Patient Business Development Officer wrote: Maritza Washington is a 58 year old female Patient calling back following up on her request that she wants to talk to Dr Florez. Advised he is in surgery today. He is aware of her request [phone] (home) [facility] 2023-06-20 13:01:08 Copied from [facility] #[id number]. Topic: Clinical - Medical Advice >> Jun 20, 2023 12:51 PM Patient Business Development Officer wrote: Maritza Washington is a 58 year old female Patient calling back following up on her request that she wants to talk to Dr Florez. Advised he is in surgery today. He is aware of her request [phone] (home) Bethany Padilla [facility] 2023-06-19 16:13:26 MD aware and placed CT orders. Patient aware and was transferred to radiology to schedule. Patient is requesting a call from MD today if possible to go over surgery and what to expect. Lennie Chau LVN [facility] 2023-06-19 11:26:52 Copied from [facility] #[id number]. Topic: Clinical - Order >> Jun 19, 2023 11:24 AM Patient Business Development Officer wrote: Maritza Washington is a 58 year old female [employer] is calling to request a CT scan be ordered and performed prior to the upcoming surgery. Maritza has a concern regarding her kidney that has possibly doubled in size. Please f/u Work Phone Not on file. Tiffany [facility] 2023-06-19 11:25:53 Copied from [facility] #[id number]. Topic: Clinical - Order >> Jun 19, 2023 11:24 AM Patient Business Development Officer wrote: Maritza Washington is a 58 year old female [employer] is calling to request a CT scan be ordered and performed prior to the upcoming surgery. Maritza has a concern regarding her kidney that has possibly doubled in size [facility] 2023-06-19 09:46:55 Patient would like more information on upcoming [facility] procedure and would like to get another CT A/P done before the surgery on Friday. Please advise. [facility] 2023-06-19 09:28:23 LVM for patient to call back regarding request [facility] 2023-06-19 08:24:24 Maritza Washington is a 58 year old female patient calling to speak with clinic regarding questions about surgery and wanting a CT prior to surgery. Please call [phone] Arlyn Agee [facility] 2023-06-18 16:15:00 Addended by: MIKAYLA FLOREZ on: 06/19/2023 04:12 PM Modules accepted: Orders T [facility] 2023-06-17 15:24:40 Pain is most likely related to stent spasms rather than ureteral stone, I added Gabapentin in addition to regular OTC analgesia , Tamsulosin and Ditropan I expect pain to improve with the above combination [facility] 2023-06-17 14:12:35 Spoke to patient,and she stated that she is still having pain( pain level is 5). Patient states that pain medication that was given at discharged is not helping with her pain.Patient is not having any fever or chill. She is increasing her water intake. Con Walsh MA [facility] 2023-06-17 12:07:23 Pt requesting to speak to nurse regarding pain due to stone. Please F/u Edwin Cabral [facility] 2023-06-13 17:42:00 Regardinyo female- message from doc ----- Message from Hoa Gaona sent at 06/13/2023 5:35 PM CDT ----- Maritza Washington is a 58 year old female Had an assessment placed at 9am, spoke with nurses at 2pm sent message in encounter, can y'all relay it to PT? Pt is calling because the nurse told her the doc would call her but he messaged in the encounter Pia Pitt RN [facility] 2023-06-13 17:42:00 Images from the original note were not included. Maritza Washington is a 58 year old female, who is calling because she was expecting a call back from the provider. See below message from provider for today: Carlos Gomes MD to Azeb Pierce RN 06/13/23 4:02 PM Note Mrs Washington Thank you for your communication As per our conversation I think the previous radiation treatment caused ureteral scarring and stricture, and I was not able to pass the ureteroscope through the scar tissue. It seems your kidney was obstructed due to ureteral stricture as the stone was small around 3 mm. I exchanged the stent as I explained yesterday and documented in the discharge document, to help dilate urete r and I have already referred you to see Dr Florez for further assessment and possibly reattempt ureteroscopy. The stent function is drain the kidney, reduce pain , preserve kidney function, reduce risk of kidney infection and severe infections. It may cause pain and discomfort, usually it gets better over time and improves with the prescribed medications. Please contact us with any concerns or questions Thanks Carlos grant MD RN called patient and notified patient of above information. Patient notes pain of 5/10 and notes fever 100.0 oral. Tramadol 50 mg as prescribed. 175 Continue with the OTC medication. If having any nausea, vomiting, or high fever please go to ER for further evaluation.RN attempt to call patient while on the phone with provider, and patient did not answer call. 1801 spoke with patient regarding above information. Reviewed OTC medication rotation as noted in discharge instructions and ER warnings. Patient instructed to call back tomorrow if this does not help as she had not been taking the Tylenol and Motrin as prescribed. Patient voices understanding and denies further needs at this time. 1801 Patient Reason for Disposition [1] MILD-MODERATE post-op pain (e.g., pain scale 1-7) AND [2] not controlled with pain medications Protocols used: Post-Op Symptoms and [id number] [facility] 2023-06-13 16:02:30 Mrs Washington Thank you for your communication As per our conversation I think the previous radiation treatment caused ureteral scarring and stricture, and I was not able to pass the ureteroscope through the scar tissue. It seems your kidney was obstructed due to ureteral stricture as the stone was small around 3 mm. I exchanged the stent as I explained yesterday and documented in the discharge document, to help dilate urete r and I have already referred you to see Dr Florez for further assessment and possibly reattempt ureteroscopy. The stent function is drain the kidney, reduce pain , preserve kidney function, reduce risk of kidney infection and severe infections. It may cause pain and discomfort, usually it gets better over time and improves with the prescribed medications. Please contact us with any concerns or questions Thanks Carlos grant MD T [facility] 2023-06-13 14:11:03 Patient had procedure yesterday. Will close this encounter. A separate encounter has been sent to provider. Azeb Pierce RN Azeb Jc RN [facility] 2023-06-13 14:01:12 Returned patient's call. Patient stated that she had surgery scheduled for ureteroscopic stone manipulation yesterday 06/13/23. Patient stated that stones were unable to be removed due to scar tissue. Patient stated that she is having 5/10 right flank pain. Patient stated that she has been dealing with the pain related to the kidney stone for the past 3 weeks and needs to know what is the plan of care. When asked, patient stated that she is unsure if she has had fever. Denies chills, nausea, vomiting. Patient does have some blood in her urine and pain with urination. I informed patient that she will have some degree of discomfort related to having the stent in place, and she may also see a small amount of blood in urine. I advised patient to continue to take her pain medication as prescribed, and increase her water intake. I informed patient that a urine culture was taken during her hospital stay yesterday but results are still pending. Per discharge instructions, patient is to follow up with Dr. Florez in 2 weeks. Patient would like to know what Dr. Gomes recommends for her in the meantime. Will route. Azeb Pierce RN Azeb Jc RN [facility] 2023-06-13 13:23:44 Maritza Washington is a 58 year old female Pt calling requesting update [phone] (home) Jf Byrd [facility] 2023-06-13 09:12:12 Copied from [facility] #[id number]. Topic: Clinical - Medical Advice >Jun 13, 2023 9:09 AM Patient Business Development Officer wrote: Maritza Washington is a 58 year old female is calling to speak with someone from Dr. Gomes staff or nurse due to pain from kidney stones. 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 PH:[phone] Please advise Sania Ann [facility] 2023-06-09 16:15:17 Copied from [facility] #[id number]. Topic: Clinical - Medical Advice >Jun 09, 2023 4:14 PM Patient Business Development Officer wrote: Maritza Washington is a 58 year old female calling to request assistance with why the procedure has been schd on 06/11 versus 06/12; she would also like the procedure explained, in depth. Please expedite f/u Work Phone Not on file. Tiffany Ley [facility] 2023-06-09 10:59:55 Copied from [facility] #[id number]. Topic: Clinical - Medical Advice >> Jun 09, 2023 10:58 AM Patient Business Development Officer wrote: Pt calling states has has questions and concerns about her procedure 06/11. Pt also would like to know about the procedure date. She thought it was going to be 06/12 Please call pt Work Phone Not on file. Devora Hodges V [facility] 2023-06-09 10:42:20 Patient was identified with name and date during prescreening call. Procedure was verified. Discussed preop instructions with pt. NPO instructions discussed with patient nothing by mouth after midnight night before surgery to include gum, mints, hard candy, sucker, cough drops, and tobacco. Pt advised clear liquids (water, sprite, gatorade only) are allowed up until 2 hours prior to arrival time. Pt was advised to have a responsible adult with them DOS, patient was advised that they will receive a call the day before surgery with arrival time between 1 pm and 4 pm[address] DOS 06-12-23 was discussed with patient. Patient v/u. [facility] 2023-06-05 08:51:22 Call patient to follow up with he symptoms, Patient seem upset because she stated that she was expecting for a call back yesterday. He stated she went back to the ER and feeling better now. With no pain,fever, or chill. Con Walsh MA [facility] 2023-06-04 22:21:42 Pt discharged to home, pt given printed and verbal discharge instructions. Patient verbalized understanding and able to teach back discharge instructions Pt awake alert oriented x 4, resp reg unlabored, skin w/d, color appropriate for race, moves all ext well. Advised to seek medical attention for new/prolonged/worsening of symptoms, pt ambulated from unit with steady gait, in no apparent distress. Maritza Macias RN [facility] 2023-06-04 21:23:44 Maritza Washington is a 58 year old female presenting to the ER after spiking fever at home along with elevated HR and HTN. Patient reports being discharged from the hospital yesterday in which she had a stent put in for a kidney stone. A&Ox4, VSS, denies SOB, N/V, dizziness, [place]. Respirations unlabored, equal chest rise and fall noted. [facility] 2023-06-04 17:14:48 Maritza Washington is a 58 year old female Subjective: Pt ambulatory into triage with c/o fever, HTN, and elevated HR starting last night. Pt reports that she was discharged from hospital yesterday after having stent placed for kidney stone. Pt denies chest pain, SOB, cough, n/v/d. Objective: Pt is alert and oriented x4. Respirations even and unlabored. NAD. Eddi Mckeon RN [facility] 2023-06-04 13:06:54 TRANSITIONAL CARE MANAGEMENT ASSESSMENT 06/04/2023 Maritza Washington [id number] Maritza Washington is a 58 year old /White female was admitted on 06/01/23 to [facility] [place] [address]. She was discharged on 06/03/23 with discharge disposition of HR- Routine Discharge. Admitting Physician: Calvin Nova Discharge Diagnosis: Pyelonephritis KRISTOPHER (acute kidney injury) Nephrolithiasis Fatigue Anemia Elevated LFTs Linked Episodes Type: Episode: Status: Noted: Resolved: Last update: Updated by: TRANSITION OF CARE TCM Active 06/03/2023 06/04/2023 1:01 PM Neo Farrell RN Comments: TCM [id number] outreach documentation: Discharge Assessment Chart Assessed: 06/04/23 TCM Outreach Completed: 06/04/23 Do you have a few minutes to speak with me about how you are doing at home?: Yes (pt has been having intermittitent temp spikes up to 101. Will send message to Urology RN to reach out to pt. Pt reports 1 message has already been sent this am.) Albin Nuñez MD Discharge Instructions Do you understand your at-home instructions?: Yes Medications Have you filled your prescriptions and do you have them in your home? : Yes Do you know how to take your medications?: Yes Can you provide me with the names or descriptions of any [id number] or supplements you are currently taking?: Yes Supplies Did you receive applicable home medical supplies/equipment?: N/A Follow Up Appointment Has a follow up appointment been scheduled?: No May I assist with scheduling this appointment?: Unable to schedule-referred to HFU Team (appt has already been escalated) Do you have any questions about your follow up appointments?: No Home Health Assistance Has the home health nurse contacted you since you've been home?: N/A Survey - Recognition Is there anything you would like to share about your recent hospitalization, or anyone you would like to recognize?: No Do you have any suggestions for improvement?: No Do you have any other questions or concerns at this time?: No Future Appointments: Future Appointments Provider Department Dept Phone 07/10/2023 1:40 PM Bob Min MD [facility], [facility] [phone] Neo Farrell RN [facility] 2023-06-04 10:10:45 Copied from [facility] #[id number]. Topic: Clinical - Medical Advice >> Jun 04, 2023 10:05 AM Patient Business Development Officer wrote: Patient calling was currently released from the hospital on yesterday mention since she has been home twice she has been running a fever of 101 and is having right side pain Carlie Clifford [facility] 2023-06-03 16:09:02 Problem: Discharge Planning Goal: Adequate for discharge 06/03/2023 1608 by Josie Osullivan RN Outcome: Adequate for discharge 06/03/2023 1335 by Josie Osullivan RN Outcome: Progressing as expected Goal: Effective communication 06/03/2023 1608 by Josie Osullivan RN Outcome: Adequate for discharge 06/03/2023 1335 by Josie Osullivan RN Outcome: Progressing as expected Problem: Pain Goal: Control of pain at or below patient's documented comfort goal 06/03/2023 1608 by Josie Osullivan RN Outcome: Adequate for discharge 06/03/2023 1335 by Josie Osullivan RN Outcome: Progressing as expected Goal: Reduction in pain sensation 06/03/2023 1608 by Josie Osullivan RN Outcome: Adequate for discharge 06/03/2023 1335 by Josie Osullivan RN Outcome: Progressing as expected Problem: Infection Risk Goal: Absence of infection 06/03/2023 1608 by Josie Osullivan RN Outcome: Adequate for discharge 06/03/2023 1335 by Joise Osullivan RN Outcome: Progressing as expected Josie Osullivan RN [facility] 2023-06-03 13:35:45 Problem: Discharge Planning Goal: Adequate for discharge Outcome: Progressing as expected Goal: Effective communication Outcome: Progressing as expected Problem: Pain Goal: Control of pain at or below patient's documented comfort goal Outcome: Progressing as expected Goal: Reduction in pain sensation Outcome: Progressing as expected Problem: Infection Risk Goal: Absence of infection Outcome: Progressing as expected [facility] 2023-06-03 01:55:35 Problem: Discharge Planning Goal: Adequate for discharge Outcome: Progressing as expected Goal: Effective communication Outcome: Progressing as expected Problem: Pain Goal: Control of pain at or below patient's documented comfort goal Outcome: Progressing as expected Goal: Reduction in pain sensation Outcome: Progressing as expected Problem: Infection Risk Goal: Absence of infection Outcome: Progressing as expected T Elsy Chaudhry RN [facility] 2023-06-02 15:38:16 Problem: Discharge Planning Goal: Adequate for discharge Outcome: Progressing as expected Goal: Effective communication Outcome: Progressing as expected Problem: Pain Goal: Control of pain at or below patient's documented comfort goal Outcome: Progressing as expected Goal: Reduction in pain sensation Outcome: Progressing as expected Problem: Infection Risk Goal: Absence of infection Outcome: Progressing as expected T Sruthi Larsen RN [facility] 2023-06-02 02:17:53 Problem: Discharge Planning Goal: Adequate for discharge Outcome: Progressing as expected Goal: Effective communication Outcome: Progressing as expected Problem: Pain Goal: Control of pain at or below patient's documented comfort goal Outcome: Progressing as expected Goal: Reduction in pain sensation Outcome: Progressing as expected Problem: Infection Risk Goal: Absence of infection Outcome: Progressing as expected [facility] 2023-06-01 19:43:14 Report called to for pt transport to the floor Parker Narayanan RN [facility] 2023-06-01 18:07:04 Pt given meal tray [facility] 2023-06-01 18:04:08 Pt meal tray ordered [facility] 2023-06-01 16:40:16 MD at bedside [facility] 2023-06-01 16:23:22 Pt requesting pain medications at this time, Admitting MD aware, orders to follow. ERLY NAMED [facility] Kellee Trejo RN [facility] 2023-06-01 15:41:27 MD at bedside [facility] 2023-06-01 13:26:43 Pt ambulatory to the bathroom [facility] 2023-06-01 11:16:30 Pt ambulatory to bathroom to provide urine specimen at this time. [facility] 2023-06-01 11:12:44 Maritza Washington is a 58 year old female presenting to the ED with c/o right sided flank pain since Friday. Reports she was diagnosed with kidney stones at [facility] ED. Endorses burning with urination. Denies fevers. AOX4, NAD, VSS Took Tramadol this morning. Nina Daniel RN [facility] 2023-06-01 11:10:00 [facility] Emergency Department Note Patient Name: Maritza Washington Date of : 1965 58 year old female Treatment Room: [address] Primary Care Physician: Bob Min Patient Escorted by: Self [9] Mode of Arrival: Personal means [1] EMS Treatment Prior to ED Arrival: PUMPER GAGER treatment: None Travel and Exposure Screening: Symptoms Does patient have any of these symptoms?: (not recorded) Exposure Screening Has patient had contact with someone with a communicable disease in the last month?: (not recorded) Diseases exposed to:: (not recorded) Is Patient ?: (not recorded) Exposure Date: (not recorded) Chief Complaint: Chief Complaint Patient presents with Flank Pain History of Present Illness: History provided by: Patient Abdominal Pain Pain location: R flank and RLQ Pain quality: aching and sharp Pain radiates to: Does not radiate Pain severity: Moderate Onset quality: Sudden Duration: 1 week Timing: Constant Progression: Worsening Chronicity: New Relieved by: Nothing Worsened by: Nothing Ineffective treatments: Lying down Associated symptoms: chills, dysuria and nausea Associated symptoms: no cough and no fever Past Medical History/Immunizations: Past Medical History: Diagnosis Date Colon cancer 2009, 2013 Dr. Mckenzie s/p colon resection 2009. repeat scope 03/2013 was neg and following up in 1 year H/O: hysterectomy 2004 History of colonoscopy 2016 clean; History of small bowel obstruction 2013 medically managed Hx of cholecystectomy 1997 Pap smear abnormality of cervix 20+ years ago Tetanus received in last 5 years: Unknown Allergies: Allergies Allergen Reactions Sulfa (Sulfonamide Antibiotics) Nausea and/or Vomiting Vicodin [Hydrocodone-Acetaminophen] Itching Past Social History: Tobacco Use Every Day; 0.50 packs/day for 30.00 years; Types: Cigarettes Smokeless Tobacco: Never used smokeless tobacco. Alcohol Use No. Drug Use No. Sexual Activity Sexually active; Partners: Male; Control/Protection: Surgical. Comments: Past Surgical History: Past Surgical History: Procedure Laterality Date CHOLECYSTECTOMY COLON SURGERY 2009 h/o colon cancer COLONOSCOPY Left 06/26/2017 Surgeon: Jarred Jara MD; Location: [facility] COLONOSCOPY Left 12/06/2020 Surgeon: Abdelrahman Madden MD; Location: [facility] COLPOSCOPY benign per pt. normal pap since ESOPHAGOGASTRODUODENOSCOPY N/A 06/27/2016 Surgeon: Jarred Jara MD; Location: [facility] Location ESOPHAGOGASTRODUODENOSCOPY N/A 06/26/2017 Surgeon: Jarred Jara MD; Location: [facility] ESOPHAGOGASTRODUODENOSCOPY Left 12/06/2020 Surgeon: Abdelrahman Madden MD; Location: [facility] HYSTERECTOMY kept ovaries; dysmenorrhea TRIGGER FINGER RELEASE Left 05/27/2017 Surgeon: Prashant El MD; Location: [facility] TUBAL LIGATION Review of Systems: Review of Systems Constitutional: Positive for chills. Negative for fever. Respiratory: Negative for cough and chest tightness. Gastrointestinal: Positive for abdominal pain and nausea. Genitourinary: Positive for dysuria. Neurological: Negative for dizziness, weakness and numbness. Psychiatric/Behavioral: Negative for confusion. Physical Exam: ED Triage Vitals Weight 06/01/23 1114 56.7 kg (125 lb) Actual or estimated 06/01/23 1114 Estimated by patient/family report Height 06/01/23 1114 1.499 m (4' 11") BP 06/01/23 1113 (!) 151/92 Pulse 06/01/23 1113 88 Resp 06/01/23 1113 18 Temp 06/01/23 1113 36.3 ?C (97.4 ?F) Temp source 06/01/23 1613 Oral SpO2 06/01/23 1113 94 % Measured on 06/01/23 1613 Room air Physical Exam Vitals reviewed. Constitutional: Appearance: Normal appearance. HENT: Head: Normocephalic and atraumatic. Right Ear: Tympanic membrane, ear canal and external ear normal. There is no impacted cerumen. Left Ear: Tympanic membrane, ear canal and external ear normal. There is no impacted cerumen. Mouth/Throat: Pharynx: Oropharynx is clear. No oropharyngeal exudate or posterior oropharyngeal erythema. Eyes: General: No scleral icterus. Extraocular Movements: Extraocular movements intact. Conjunctiva/sclera: Conjunctivae normal. Pupils: Pupils are equal, round, and reactive to light. Cardiovascular: Rate and Rhythm: Regular rhythm. Tachycardia present. Pulses: Normal pulses. Heart sounds: No murmur heard. No friction rub. Pulmonary: Effort: Pulmonary effort is normal. Breath sounds: Normal breath sounds. No rhonchi or rales. Abdominal: General: Bowel sounds are normal. Palpations: Abdomen is soft. There is no mass. Tenderness: There is abdominal tenderness in the right lower quadrant. There is right CVA tenderness. There is no left CVA tenderness, guarding or rebound. Musculoskeletal: General: No swelling, tenderness or signs of injury. Cervical back: Neck supple. No tenderness. Right lower leg: No edema. Left lower leg: No edema. Lymphadenopathy: Cervical: No cervical adenopathy. Skin: General: Skin is warm and dry. Findings: No rash. Neurological: General: No focal deficit present. Mental Status: She is alert and oriented to person, place, and time. Cranial Nerves: No cranial nerve deficit. Motor: No weakness. Psychiatric: Mood and Affect: Mood normal. Behavior: Behavior normal. Thought Content: Thought content normal. Radiology: XR CHEST 2 VW Final Result Chest, two views History: cough Ordering Physician: RC NOWAK Heart size and mediastinal contours appear normal no pneumothorax or edema. No pleural effusion. No consolidative pneumonia identified Thickening of the central airways is present which may represent airway inflammation or edema. Subsegmental atelectasis of the lung bases. RL: [id number] AFC: [id number] ABDOMEN PELVIS WO CONTRAST Final Result EXAM: CT ABDOMEN AND PELVIS WITHOUT CONTRAST HISTORY: 58-year-old female with flank pain, kidney stone suspected. COMPARISON: None. TECHNIQUE AND FINDINGS: Contiguous axial imaging from the level of the lung bases through the pubic symphysis was performed without contrast. Coronal and sagittal reconstructions were obtained. FINDINGS: LOWER THORAX: The lungs bases are clear with mild dependent atelectasis. No cardiomegaly. LIVER: No focal hepatic lesions. No biliary ductal dilation. GALLBLADDER AND BILIARY TREE: No biliary ductal dilation. Status post cholecystectomy SPLEEN: No splenomegaly. PANCREAS: No ductal dilation or masses. ADRENAL GLANDS: No adrenal nodules. KIDNEYS: The right kidney is mild enlarged with perinephric inflammatory changes. Has mild hydronephrosis and a 3 mm stone at the proximal ureter at to the UPJ. . More distal the ureter appears prominent but there is no convincing luminal calcification. There are several right-sided pelvic phleboliths that appear stable since 2021. The left kidney is unremarkable without lithiasis. PERITONEUM AND RETROPERITONEUM: No free air or fluid. LYMPH NODES: No lymphadenopathy. GI TRACT: No dilation or wall thickening. Changes from prior colon resection, surgical margins appear spine without evidence for obstruction. The colon stool burden is small. PELVIS/BLADDER: The urinary bladder is partially distended with thickened cordoba and a clear lumen. The morphology suggests a cystitis. There is no pelvic mass or free fluid. VESSELS: Unremarkable with mild scattered atherosclerotic calcification BONES AND SOFT TISSUES: No suspicious lytic or sclerotic bony lesions. IMPRESSION Mild right hydronephrosis and inflammatory changes surround the right kidney. A 3 mm stone noted at the right UPJ. The right ureter has nonspecific inflammatory changes but no convincing additional stones. Patient may have recently passed a small stone The urinary bladder has thickened cordoba and a clear lumen as in a cystitis. Changes from colon resection without obstruction or recent complication. Lab Results: Lab Results CBC WITH DIFF - Abnormal Result Value Ref Range WBC 12.32 (*) 4.30 - 11.10 10*3/?L RBC 4.08 3.93 - 5.25 10*6/?L HGB 12.7 11.6 - 15.0 g/dL HCT 37.2 35.7 - 45.2 % MCV 91.2 80.6 - 95.5 fL MCH 31.1 25.9 - 32.8 pg MCHC 34.1 31.6 - 35.1 g/dL RDW-SD 41.0 39.0 - 49.9 fL RDW-CV 12.1 12.0 - 15.5 % PLT 273 166 - 358 10*3/?L MPV 10.6 9.5 - 12.9 fL NRBC/100 WBC 0.0 0.0 - 10.0 /100 WBCs NRBC x10 3 <0.01 10*3/?L GRAN MAT (NEUT) % 75.9 % IMM GRAN % 0.30 % LYMPH % 10.6 % MONO % 12.3 % EOS % 0.5 % BASO % 0.4 % GRAN MAT x10 3 (ANC) 9.36 (*) 1.88 - 7.09 10*3/uL IMM GRAN x10 3 0.04 0.00 - 0.06 10*3/uL LYMPH x10 3 1.30 (*) 1.32 - 3.29 10*3/uL MONO x10 3 1.51 (*) 0.33 - 0.92 10*3/uL EOS x10 3 0.06 0.03 - 0.39 10*3/uL BASO x10 3 0.05 0.01 - 0.07 10*3/uL URINALYSIS - Abnormal APPEARANCE Cloudy (*) Clear COLOR Peyton (*) Yellow PH 6.0 4.8 - 8.0 SP GRAVITY 1.011 1.003 - 1.030 GLU U QUAL Normal Normal BLOOD 2+ (*) Negative KETONES 5 mg/dL (*) Negative PROTEIN 100 mg/dL (*) Negative UROBILIN 4.0 mg/dL (*) Normal BILIRUBIN Negative Negative NITRITE Positive (*) Negative LEUK NELLY 250/uL (*) Negative RBC/HPF 90 (*) 0 - 3 HPF WBC/HPF >182 (*) 0 - 5 HPF BACTERIA Few (*) Negative COMP. METABOLIC PANEL (33192) - Abnormal NA 136 135 - 145 mmol/L K 4.3 3.5 - 5.0 mmol/L CL 102 98 - 108 mmol/L CO2 TOTAL 26 23 - 31 mmol/L AGAP 8 2 - 16 BUN 23 7 - 23 mg/dL GLUCOSE 154 (*) 70 - 110 mg/dL CREATININE 1.36 (*) 0.50 - 1.04 mg/dL TOTAL BILI 0.9 0.1 - 1.1 mg/dL CALCIUM 9.3 8.6 - 10.6 mg/dL T PROTEIN 6.9 6.3 - 8.2 g/dL ALBUMIN 4.2 3.5 - 5.0 g/dL ALK PHOS 190 (*) 34 - 122 U/L ALTv 62 (*) 5 - 35 U/L AST(SGOT) 54 (*) 13 - 40 U/L eGFR 45.0 mL/min/1.73m2 LIPASE - Normal LIPASE 39 0 - 220 U/L POCT GLUCOSE(AGE >30DAYS) - Normal POCT Glu (age>30days) 98 70 - 110 mg/dL POCT GLUCOSE (AUTOMATED) - Normal POCT GLU 98 70 - 110 mg/dL URINE CULTURE BLOOD CULTURE SCREEN BLOOD CULTURE SCREEN EXTRA TUBE URINE CULTURE EKG: If EKG completed, see Procedure Note. Orders and Treatments: Orders Placed This Encounter Procedures CT ABDOMEN PELVIS WO CONTRAST XR CHEST 2 VW CBC WITH DIFF URINALYSIS COMP. METABOLIC PANEL (35448) LIPASE URINE CULTURE Glycosylated Hemoglobin (A1C) Lipid Panel (Total Cholesterol, Triglycerides, HDL) - Fasting Thyroid Stimulating Hormone (TSH) POCT Glucose (Age >30 Days) BLOOD CULTURE SCREEN BLOOD CULTURE SCREEN Urinalysis Phosphorus Magnesium Basic Metabolic Panel (NA, K, CL, CO2, GLUCOSE, BUN, CREATININE, CA) Basic Metabolic Panel (NA, K, CL, CO2, GLUCOSE, BUN, CREATININE, CA) Basic Metabolic Panel (NA, K, CL, CO2, GLUCOSE, BUN, CREATININE, CA) Cbc with Diff Cbc with Diff Cbc with Diff POCT GLUCOSE (AUTOMATED) Consult Urology Orders Placed This Encounter Medications ketorolac (TORADOL) injection 15 mg ondansetron (ZOFRAN (PF)) injection 4 mg NaCl 0.9% (NS) bolus infusion 1,000 mL cefTRIAXone (ROCEPHIN) 1,000 mg in NaCl 0.9% (NS) 100 mL MINI-BAG atorvastatin (LIPITOR) tablet 10 mg buPROPion SR (WELLBUTRIN SR) tablet 150 mg gabapentin (NEURONTIN) capsule 300 mg pantoprazole (PROTONIX) EC tablet 40 mg DISCONTD: acetaminophen (TYLENOL) tablet 650 mg HYDROcodone-acetaminophen (NORCO 5) 5-325 mg tablet 1 tablet sennosides-docusate sodium (SENOKOT-S) 8.6-50 mg per tablet 1 tablet ondansetron (ZOFRAN (PF)) injection 4 mg guaiFENesin (FENESIN IR) tablet 200 mg enoxaparin (LOVENOX) injection 40 mg dextrose 50 % in water (D50W) injection 25 mL glucagon (GLUCAGEN DIAGNOSTIC KIT) injection 1 mg Sliding Scale Insulin - Lispro (HumaLOG) DISCONTD: lactated ringers IV infusion 1,000 mL cefTRIAXone (ROCEPHIN) 1,000 mg in NaCl 0.9% (NS) 100 mL MINI-BAG morpHINE (4 mg/mL) injection 4 mg acetaminophen (TYLENOL) tablet 650 mg DISCONTD: ketorolac (TORADOL) injection 15 mg tamsulosin (FLOMAX) capsule 0.4 mg methocarbamoL (ROBAXIN) tablet 500 mg lactated ringers IV infusion 1,000 mL First Provider Eval: ED Events Date/Time Event User Comments 06/01/23 1115 Medical Screening Begins RC PENG DO -- 06/01/23 1115 First Provider Evaluation RC PENG DO -- AdmissionCare Guideline: Renal Colic / Kidney Stones - INPT, Inpatient Based on the indications selected for the patient, the bed status of Inpatient was determined to be NOT MET The following indications were selected as present at the time of evaluation of the patient: - Acute kidney injury (stage 2), as indicated by 1 or more of the following: - Rise in creatinine to 2 times its baseline value or higher - Alternative routes (eg, oral, transdermal, or submucosal) for opioid treatment not appropriate or not sufficient AdmissionCare documentation entered by: Rc Peng [facility] Comic Reply, 27th edition, Copyright ? 2022 [facility] [employer] All Rights Reserved. [id number]:58:31-05:00 ED COURSE Diagnosis/Impression as of 06/01/23 1844 Acute abdominal pain Acute pyelonephritis Right ureteral stone Hyperglycemia Elevated serum creatinine Procedures: Procedures MDM: Medical Decision Making Patient was evaluated for the complaint of Flank Pain Diagnoses considered but not limited to: Abdominal Pain (acute) Appendicitis Bowel Obstruction Bowel Perforation Diverticulitis (acute) Ovarian Cyst Pancreatitis (acute) Peptic Ulcer Disease Pyelonephritis Urinary Tract Infection. Labs:were ordered, and resulted, any relevant abnormalities were considered. Imaging:Ordered, and resulted, any relevant abnormalities were considered. Procedures:were not performed. History, physical exam findings, results of visit, diagnosis, medication regimens and plan of future care have been considered. Additional MDM may be found in the ED course. Vital signs were rechecked before final disposition and determined to be stable. Amount and/or Complexity of Data Reviewed Labs: ordered. Decision-making details documented in ED Course. Radiology: ordered. Decision-making details documented in ED Course. Risk Prescription drug management. Parenteral controlled substances. Decision regarding hospitalization. Flowsheet Documentation: Patient was seen for abdominal pain and flank pain. There is significant CVAT. CBC did show leukocytosis but there is no anemia or thrombocytopenia. The urinalysis does show white blood cells and is nitrite positive. The CBC shows hyper along with elevation in the creatinine. The patient's previous creatinine is within normal limits. CT of the abdomen does show a ureteral stone on the right side. CT also suggestive of pyelonephritis with some perinephric fat stranding. Urine culture was ordered and IV antibiotics were initiated. Urology was contacted regarding this patient and admission and consultation was discussed Scoring Tools: No data recorded Disposition/Condition: ED Disposition ED Disposition Admit - Inpatient Condition Stable Comment -- Discharge Medications: Patient's Medications START taking these medications No medications on file CONTINUE taking these medications which have NOT CHANGED ACETAMINOPHEN (TYLENOL EXTRA STRENGTH) 500 MG TABLET Take 1 tablet by mouth every 6 (six) hours as needed for Pain for up to 20 doses. ALBUTEROL 90 MCG/ACTUATION INHALER Inhale 2 Puffs every 4 (four) hours as needed for Wheezing or Shortness of Breath. ATORVASTATIN 10 MG TABLET Take 1 tablet by mouth at bedtime. BLOOD SUGAR DIAGNOSTIC ([employer] Media[employer]CH ULTRA TEST) STRIP Use to test glucose once a day E11.9 BUPROPION SR 150 MG SR TABLET TAKE 1 TABLET BY MOUTH TWICE A DAY CEFDINIR 300 MG CAPSULE Take 1 capsule by mouth in the morning and 1 capsule in the evening. GABAPENTIN 300 MG CAPSULE Take 1 capsule by mouth at bedtime as needed. GLIPIZIDE 10 MG TABLET Take 1 tablet by mouth in the morning. GLIPIZIDE XL 5 MG 24 HR TABLET Take 1 tablet by mouth daily with breakfast. LANCETS (RollUp MediaUCH DELICA LANCETS) 30 GAUGE MISC Use to test glucose once a day E11.9 LISINOPRIL 5 MG TABLET Take 1 tablet by mouth daily. METFORMIN 1,000 MG TABLET Take 1 tablet by mouth 2 (two) times daily with meals. PANTOPRAZOLE 40 MG EC TABLET Take 1 tablet by mouth daily. START taking Modified Medications as Prescribed No medications on file STOP taking these medications No medications on file Follow-up: [facility] 2023-06-01 11:10:00 Images from the original note were not included. I have no personal relationship with this patient nor did I see or evaluate them. My only involvement in their care was to review culture or radiology results and contact them if changes to medication or further imaging or evaluation is warranted. Procedure Component Value Units Date/Time URINE CULTURE [[id number]] (Abnormal) Collected: 06/01/23 1131 Lab Status: Final result Specimen: URINE, CLEAN CATCH Updated: 06/02/23 1300 URINE CULTURE 40,000 CFU/mL Ian tropicalis Abnormal Pt is currently admitted and being managed by the hospitalist. No further intervention needed at this time. Nicolle Sultana, MSN, SHACTOR HELPER,VICE PRESIDENT RISK MANAGEMENT-C Irasema Sultana FNP 06/03/23 0801 Associated attestation - Bradly Stanton DO - 06/03/2023 8:13 AM CDT I was available for consultation at all times during the patient encounter and present in the Emergency Department providing general supervision. However, I did not see or evaluate the patient. Patient seen and evaluated by [facility] Emergency Physician [facility] 2023-06-01 11:10:00 AdmissionCare Guideline: Renal Colic / Kidney Stones - INPT, Inpatient Based on the indications selected for the patient, the bed status of Inpatient was determined to be NOT MET The following indications were selected as present at the time of evaluation of the patient: - Acute kidney injury (stage 2), as indicated by 1 or more of the following: - Rise in creatinine to 2 times its baseline value or higher - Alternative routes (eg, oral, transdermal, or submucosal) for opioid treatment not appropriate or not sufficient AdmissionCare documentation entered by: [facility], 27th edition, Copyright ? 2022 [facility] [employer] [facility] All Rights Reserved. [id number]:00 [facility] 2023-05-30 03:08:00 [facility] ([facility]) EMERGENCY PROVIDER REPORT REPORT#:[id number] REPORT STATUS: Signed DATE:05/30/23 TIME: 030 PATIENT: MARITZA WASHINGTON UNIT #: [id number] ROOM/BED: AGE: 58 SEX: F PCP PHYS: Jovana Weber MD SERVICE AUTHOR: Edwin Mathews DO * ALL edits or amendments must be made on the electronic/computer document * HPI-Abd Pain F 40 and Over Free Text HPI Notes Free Text HPI Notes 58 yo female with pmh of kidney stones presents again for right flank pain due to kidney stone. Seen here on 05/27/23, diagnosed with 1 mm right proximal ureteral stone by Ct scan with mild hydronephrosis. Pt states pain is worsening tonight. She doesn't have a ride home but we will treat her with parenteral opioids, make her feel better, hydrate her and discharge her home to continue straining her urine and to follow up with urologist if not resolved in 1 week. General Initial Greet Date/Time 05/30/23 0256 Presentation Chief Complaint Flank pain R Hx Obtained From Patient Sudden in Onset? No Risk-Abd Pain F 40 and Over )( Abdominal Aortic Aneurysm No risk factors Review of Systems ROS Statements All systems rev neg except as marked. Past Medical History - Adult Stated Complaint RIGHT FLANK PAIN Allergies Coded Allergies: Sulfa (Sulfonamide Antibiotics) (Mild, CHILDHOOD REACTION 11/07/09) hydrocodone bit (From Vicodin) (Mild, ITCHING, RASH 11/07/09) Home Medications Active Scripts KETOROLAC (TORADOL) 10 MG PO Q6H PRN PRN PAIN KETOROLAC (TORADOL) 10 MG PO Q6H PRN PRN PAIN #20 TABS Prov: 05/27/23 ONDANSETRON ODT (ZOFRAN ODT) 4 MG PO Q6H PRN PRN NAUSEA/VOMITING ONDANSETRON ODT (ZOFRAN ODT) 4 MG PO Q6H PRN PRN NAUSEA/VOMITING #15 TABS Prov: 05/27/23 PHENAZOPYRIDINE (AZO STANDARD) 97.5 MG PO BID PHENAZOPYRIDINE (AZO STANDARD) 97.5 MG PO BID #14 TABS Prov: 05/27/[address] (PROTONIX) 40 MG PO DAILY traMADol (ULTRAM) 50 MG PO Q8H PRN PRN PAIN SCALE 3-7 ONDANSETRON (ZOFRAN) 2 MG PO Q6H PRN PRN NAUSEA AND VOMITING Reported Medications NICOTINE (NICODERM CQ 14 MG) 1 PATCH TRANSDERM DAILY ESTRADIOL (ESTRACE) 0.5 MG PO Q48HR PRN ESTROGEN REPLACEMENT Calculated Suicide Risk (nurs) No risk Past Medical History: Reports: Cancer (colon). Past Surgical History: Reports: Hysterectomy. Additional Surgical History colon resection Smoking status for patients 13 years old or older: Unknown,if ever smoked Physical Exam Vital Signs Vital Signs First Documented: Result Date Time Pulse Ox 98 05/29 0254 B/P 180/89 05/29 0254 B/P Mean 119 05/29 0254 O2 Delivery Room air 05/29 253 Temp 36.9 05/29 025 Pulse 89 05/29 0254 Resp 17 05/29 0254 Last Documented: Result Date Time Pulse Ox 100 05/29 0443 B/P 165/85 05/29 0443 B/P Mean 111 05/29 0443 O2 Delivery Room air 05/29 0443 Pulse 80 05/29 0443 Resp 17 05/29 0443 Temp 36.9 05/29 0254 Review of Vital Signs Reviewed Free Text PE Notes Free Text PE Notes General/Const - Awake, alert, no acute distress. MS Head - Normocephalic. Eyes - No redness or swelling. Ears/Nose/Throat - Airway patent. Moist MM. No stridor MS Neck - Supple, Full ROM. No adenopathy Resp/Chest - Clear bilaterally. No respiratory distress. Cardiovascular - Heart rate wnl and rhythm regular, no murmurs. Abdomen - Abdomen is soft, R flank and RLQ tenderness, nondistended. Skin - No rash, Warm, Dry, Intact. Extremities - Negative for edema. Neurologic - Oriented X3, Speech clear, Face symmetric. No weakness Psych - Normal mood and affect Interpretation Diagnostics Lab Results Interpretation Results Laboratory Tests: 05/29 05/29 0326 0313 Blood Gas Sodium (134 - 147 mmol/L) 142 Potassium (3.4 - 5.0 mmol/L) 4.1 Chloride (100 - 108 mmol/L) 109 H Ionized Calcium (1.12 - 1.32 MMOL/L) 1.20 Chemistry POC Creatinine (0.6 - 1.0 mg/dL) 1.0 POC Glucose (mg/dL) (70 - 110 MG/DL) 94 Urines POC Urine Color (Yellow) Other A POC Urine Appearance (Clear) Slightly Cloudy A POC Urine pH (5.0 - 8.0) 7.0 POC Ur Specif Batson (1.001 - 1.035) 1.015 POC Urine Protein (Negative) 30 A POC Ur Glucose (UA) (Negative) Negative POC Urine Ketones (Negative) Negative POC Urine Blood (Negative) Moderate A POC Urine Nitrite (Negative) Negative POC Urine Bilirubin (Negative) Negative POC Urine Urobilinogen (0.2 - 1.0 E.U/dL) 0.2 POC U Leukocyte Esteras (Negative) Large A Lab Statement Laboratory studies reviewed and considered in the medical decision-making. Re-Evaluation MDM Free Text MDM Notes Free Text MDM Notes ddx includes kristopher, uti )( Re-Evaluation/Progress #1 Text/Dict Note no need for another ct scan today, i believe she is passing the stone, it's likely at the UVJ and about to pass. Will hydrate with iv fluid bolus, give morphine iv and zofran. will rx norco for home pain control. - pt reported allergy, will change it to tramadol. sent to pharmacy Time of Re-Eval 417 )( Re-Eval Status Improved ED Course Medication(s) Ordered Medication(s) Ordered: Anti-Infective Agents Sig/Tee Start time Last Medication Dose Route Stop Time Status Admin Ceftriaxone Sodium 1,000 MG X1ED STA 05/29 0436 DC 05/29 Sodium Chloride 10 ML IV 05/29 0438 0439 Central Nervous System Agents Sig/Tee Start time Last Medication Dose Route Stop Time Status Admin Morphine Sulfate 6 MG X1ED STA 05/29 0307 DC 05/29 IV 05/29 0308 0311 Electrolytic, Caloric, And Letha Sig/Tee Start time Last Medication Dose Route Stop Time Status Admin Sodium Chloride 1,000 ML X1ED STA 05/29 0308 DC 05/29 IV 05/29 0309 0311 Gastrointestinal Drugs Sig/Tee Start time Last Medication Dose Route Stop Time Status Admin Ondansetron HCl 4 MG X1ED STA 05/29 0308 DC 03/15 IV 05/29 0309 0312 Patient Discharge Departure Vital Signs/Condition Vital Signs First Documented: Result Date Time Pulse Ox 98 05/29 253 B/P 180/89 05/29 253 B/P Mean 119 05/29 253 O2 Delivery Room air 05/29 253 Temp 36.9 05/29 253 Pulse 89 05/29 025 Resp 17 05/294 Last Documented: Result Date Time Pulse Ox 100 05/29 442 B/P 165/85 05/29 442 B/P Mean 111 05/29 442 O2 Delivery Room air 05/29 442 Pulse 80 05/29 442 Resp 17 05/29 442 Temp 36.9 05/29 253 All vital signs available at the time of this entry have been reviewed. Condition Stable Clinical Impression Clinical Impression Primary Impression: Renal colic on right side Secondary Impressions: Hydronephrosis, UTI (urinary tract infection) Disposition Decision Discharge )( Discharged to Home Yes )( Time 0418 Discharge/Care Plan Counseled Regarding Diagnosis, Lab results, Prescriptions, Need for follow-up, When to return to ED (Auto) Prescriptions Current Visit Scripts CEFDINIR (OMNICEF) 300 MG PO Q12H CEFDINIR (OMNICEF) 300 MG PO Q12H #14 CAPS traMADol (ULTRAM) 50-100 MG PO Q6H PRN PRN ACUTE PAIN traMADol (ULTRAM) 50-100 MG PO Q6H PRN PRN ACUTE PAIN #20 TABS Patient Instructions ED Kidney Stone with Pain Additional Instructions Thank you for allowing us to provide emergent medical care to you or your family member. We consider it a privilege to have served you during your illness or injury. Please read and follow your discharge instructions. - IF YOUR SYMPTOMS BECOME WORSE AND YOU ARE UNABLE TO REACH YOUR USUAL HEALTH CARE PROVIDER, YOU SHOULD RETURN TO THE EMERGENCY DEPARTMENT. The treatment and evaluation you received have been provided on an emergency basis only and is not intended to be a substitute for, or an effort to provide complete medical care. PLEASE MAKE AN APPOINTMENT TO FOLLOW UP WITH YOUR DOCTOR or SPECIALIST FOR ONGOING MONITORING AND INTERVENTION. We would appreciate your feedback on the care you received today. Take a few minutes to fill out the survey you will receive in the mail in a few weeks. Referrals Provider Referral: Marlo Kline MD Follow-Up: 1 Week Notes: urologist Address: [address] [place] [id number] Provider Referral: Jarred Cuevas MD Follow-Up: 1 Week Notes: urologist Address: [address] [place] [id number] Departure Forms LARRY PCP LIST at [phone] RPT #:[id number] [facility]
--- NOTE | 2023-11-29 23:10 | ER ---
Nurse's Notes [facility] Name: Maritza Washington Age: 58 yrs Sex: Female : 1965 Arrival Date: 11/29/2023 Time: 21:49 Bed IW10 Private MD: Diagnosis: Presentation: 11/28 22:14 Chief complaint: Patient states: Pt c/o diffuse abdominal pain and low back pain since tl4 . Coronavirus screen: At this time, the client does not indicate any symptoms associated with coronavirus-19. Ebola Screen: No symptoms or risks identified at this time. Initial Sepsis Screen: Does the patient meet any 2 criteria? No. Patient's initial sepsis screen is negative. Does the patient have a suspected source of infection? No. Patient's initial sepsis screen is negative. Risk Assessment: Do you want to hurt yourself or someone else? Patient reports no desire to harm self or others. Onset of symptoms was November 27, 2023. 22:14 Method Of Arrival: Ambulatory tl4 22:14 Acuity: PAYAM 3 tl4 Triage Assessment: 22:16 General: Appears in no apparent distress. Behavior is calm, cooperative. Pain: tl4 Complains of pain in back and abdomen. EENT: No signs and/or symptoms were reported regarding the EENT system. Neuro: Level of Consciousness is awake, alert, obeys commands, Oriented to person, place, time, situation. Cardiovascular: Capillary refill < 3 seconds Patient's skin is warm and dry. Respiratory: Airway is patent Respiratory effort is even, unlabored, Respiratory pattern is regular, symmetrical. GI: Reports lower abdominal pain, upper abdominal pain. : No signs and/or symptoms were reported regarding the genitourinary system. Derm: No signs and/or symptoms reported regarding the dermatologic system. Musculoskeletal: Circulation, motion, and sensation intact. Capillary refill < 3 seconds, Reports pain in back. Historical: - Allergies: 22:16 Sulfa (Sulfonamide Antibiotics); tl4 22:16 Vicodin; tl4 - Immunization history:: Adult Immunizations unknown. - Infectious Disease History:: Denies. - Social history:: Smoking status: Patient reports the use of cigarette tobacco products, smokes one-half pack cigarettes per day. Vital Signs: 22:14 BP 130 / 99; Pulse 72; Resp 18; Temp 98.8(O); Pulse Ox 100% on R/A; Weight 52.16 kg; tl4 Height 4 ft. 11 in. ; Pain 6/10; 22:14 Body Mass Index 23.23 (52.16 kg, 149.86 cm) tl4 22:14 Pain Scale: Adult tl4 ED Course: 21:52 Patient arrived in ED. mr 21:55 Shane Ortiz MD is Attending Physician. rt 22:15 Triage completed. tl4 22:17 Arm band placed on right wrist. tl4 22:30 Patient's name was called from ER [employer]. No response. Unable to locate patient. Will vc1 disposition as left without being seen by a provider. 23:04 Patient's name was called from ER [employer]. No response. Unable to locate patient. Will vc1 disposition as left without being seen by a provider. Administered Medications: No medications were administered Outcome: 23:06 Eloped from waiting room, before seeing physician Time discovered patient gone: vc1 November 29, 2023 at 22:30 23:09 Patient left the ED. vc1 Signatures: Nicolle Jalloh, Reg Reg mr Kathryn Ramirez RN RN vc1 Shane Ortiz MD MD rt Nael Paul RN RN tl4
[2023-11-29 23:18] VITALS: BP 130/99; TEMP 98.8; O2SAT 100
== END 2023-11-29 23:09 | disposition left against medical advice (07) ==
LOC: ER 21:49
DX: M54.50 Low back pain, unspecified (principal); F17.210 Nicotine dependence, cigarettes, uncomplicated; Z88.2 Allergy status to sulfonamides; Z88.5 Allergy status to narcotic agent; Z53.21 Procedure and treatment not carried out due to patient leaving prior to being seen by health care provider
CPT/HCPCS: 99281

== ENCOUNTER 2024-02-23 08:33 | Emergency (ER) | payer OTHER ==
--- OUTSIDE RECORDS SUMMARY | 2024-02-23 08:41 | XMS REPORT | Continuity of Care Document ---
Author Name Unknown Address [address] [facility] [address] [place] [address] [facility] Address [address] [facility] [address] [place] [address] Care Team Providers Care Fire Protection Designer Name Role Phone PCP, PATIENT DOES NOT HAVE A Primary Care Physic kael Unavailable MIKAYLA FLOREZ Attending Clinician Unavailable Cristian Laguna Attending Clinician Unavailable DARBY BROTHERS Attending Clinician UnavailDARBY Buckley Attending Clinician Unavailabl e Doctor Unassigned, Melia Attending Clinician U navailable MARTHA DANGELO Attending Clinician Unavailable Martha Connors Attending Clinician [phone] Lab, Ang - Db Attending Clinician Unavailable CHITRA SUÁREZ Attending Clinician Unavailable Keisha Beckman RN Attending Clinician Unavaila ble UNKNOWN, ATTENDING Attending Clinician Unavailab CLARIBEL Andrews Attending Clinician Unavailable CLARIBEL BLACK Attending Clinician Unavailable Doctor Unassigned, Melia Attending Clinician U sarabjitailSAMUEL Betancourt Attending Clinician Unavailable Madeline Simons MD Attending Clinician [phone] MADELINE SIMONS Attending Clinician Unavailable Nurse, [facility] Attending Clinician Un available Unknown, Attending Attending Clinician Unavailab Yuniel Forman OD Attending Clinician [phone] Martha Connors Attending Clinician [phone] Darby Brothers MD Attending Clinician [phone] Lab, Abel - Db Attending Clinician Unavailable LUDMILA BEVERLY Attending Clinician Unavailab rosa Beverly GLASS BULB MACHINE ADJUSTER, Ludmila Sow Attending Clinician + [phone] Ebkeven GLASS BULB MACHINE ADJUSTER, Tae Attending Clinician [phone] JOSE GLEASON Attending Clinician Unavailable Jose Gleason MD Attending Clinician [phone] Pako GOULD, See Attending Clinician [phone] SEE MIN Attending Clinician Unavailable YUNIEL CALDERON Attending Clinician UnavailParker Graves Attending Clinician Unavailable EDDOC, GENERIC FOR ED Attending Clinician Unava ilable CARLOS GOMES Attending Clinician Unavailable Rosey MAZA, Carlos Attending Clinician [phone] BOB MIN Attending Clinician Unavailable Mikayla Florez MD Attending Clinician [phone] BACILIO BENTLEY Attending Clinician Unavail able Caitlin Cuevas RN Attending Clinician Unavail able YUNIEL THURMAN Attending Clinician Unavail able Armando Attending Clinician Unavaila NEO Bosch Attending Clinician UnavailPia Bess RN Attending Clinician Unavailable Jenaro Padilla MD Attending Clinician [phone] Breana Calhoun RN Attending Clinician Unava ilable DAJA COLON Attending Clinician Unavailable Jase Wayne Attending Clinician [phone] Neo Farrell RN Attending Clinician Unavail able JOSE SANCHEZ Attending Clinician Unavailable JOSE SANCHEZ Attending Clinician Unavailable Rc Peng DO Attending Clinician [phone] Calvin Nova MD Attending Clinician [phone] Edwin Mathews Attending Clinician Unavailable Porfirio Attending Clinician Unavailable Jovana Weber Attending Clinician Unavailable AISHA CHÁVEZ Attending Clinician Unavailable Jayden Knight MD Attending Clinician [phone] Aisha Chávez MD Attending Clinician [phone] FRANCISCO GAMING Attending Clinician Unavailable JOSE BACK Attending Clinician Unavailable Francisco Gaming PA-C Attending Clinician [phone] [facility]ending Clinician + [phone] [facility] Attending Clinician Unavailable Abdelrahman Madden MD Attending Clinician Unavail able Samuel Guzmán MD Attending Clinician [phone] SAMUEL GUZMÁN Attending Clinician Unavaila ble Only, [facility] Test Attending Clinician Unavailable Jose Back MD Attending Clinician [phone] Ambika Masters MD Attending Clinician [phone] Giovanni Levine MD Attending Clinician [phone] Yareli Haynes RN Attending Clinician Unavailable GINI WILLARD Attending Clinician Unavailable GLENNY ARREOLA Attending Clinician Unavail able MIKAYLA FLOREZ Admitting Clinician Unavailable Jovana Weber Admitting Clinician Unavailable Armando Admitting Clinician Unavaila CARLOS Moura Admitting Clinician Unavailable Carlos Gomes MD Admitting Clinician [phone] CALVIN NOVA Admitting Clinician Unavailable Porfirio Admitting Clinician Unavailable JAYDEN KNIGHT Admitting Clinician Unavailable Payers Payer Name Policy Type Policy Number Effective Date Expirati on Date Source HIM BCBS BLUE ADVANTAGE HMO [id number] 2023 00:00:00 [place] [id number] 2023 00:00:00 [place] [id number] 2022 00:00:00 2024 00:00:00 CIGNA - RADHA (EPO) [id number] 2022 00:00:00 2023 00:00:00 [place] [id number] AETNA [id number] 2021 00:00:00 AETNA - CHOICE (POS II) [id number] 2021 00:00:00 Problems Condition Name Condition Details Condition Category Status Onset Date Resolution Date Last Treatment Date Treating Clinician Comments Source Cervicalgi a Cervicalgi a Disease Active 2023-03 0-25 00:00: 00 [facility] Right upper quadrant pain Right upper quadrant pain Disease Active 2023-03 0-25 00:00: 00 [facility] Epigastric pain Epigastric pain Disease Active 2023-03 0-25 00:00: 00 [facility] Nausea Nausea Disease Active 2023-03 0-25 00:00: 00 [facility] Hx of urinary stone Hx of urinary stone Disease Active 2023-03 0- 00:00: 00 [facility] Costochond ritis, acute Costochond ritis, acute Disease Active - 00:00: 00 [facility] Chronic right shoulder pain Chronic right shoulder pain Disease Active 6 00:00: 00 [facility] Raccoon bite, subsequent encounter Raccoon bite, subsequent encounter Disease Active 6 00:00: 00 [facility] Encounter for repeat administra tion of rabies vaccinatio n Encounter for repeat administra tion of rabies vaccinatio n Disease Active 09-08 00:00: 00 [facility] Flank pain Flank pain Disease Active 4-03 00:00: 00 [facility] Acute abdominal pain Acute abdominal pain Disease Active 3-17 00:00: 00 [facility] HLD (hyperlipi demia) HLD (hyperlipi demia) Disease Active 3-17 00:00: 00 [facility] Anxiety Anxiety Disease Active 3-17 00:00: 00 [facility] Pyelonephr itis Pyelonephr itis Disease Active 05-31 00:00: 00 [facility] GERD (gastroeso phageal reflux disease) GERD (gastroeso phageal reflux disease) Disease Active 05-31 00:00: 00 [facility] JUSTYNA (acute kidney injury) JUSTYNA (acute kidney injury) Disease Active 05-31 00:00: 00 [facility] Nephrolith iasis Nephrolith iasis Disease Active 05-31 00:00: 00 [facility] Type 2 diabetes mellitus Type 2 diabetes mellitus Disease Active 05-31 00:00: 00 [facility] HTN (hypertens ion) HTN (hypertens ion) Disease Active 05-31 00:00: 00 [facility] Leukocytos is Leukocytos is Disease Active 05-31 00:00: 00 [facility] Right ureteral stone Right ureteral stone Disease Active 05-31 00:00: 00 [facility] JUSTYNA (acute kidney injury) JUSTYNA (acute kidney injury) Disease Active 05-31 00:00: 00 [facility] History of alcoholism History of Alcoholism Problem Active 05-03 00:00: 00 [facility] Mehta's esophagus Mehta's Esophagus Problem Active 2022-03 00:00: 00 [facility] History of malignant neoplasm of colon History of Malignant Neoplasm of Colon Problem Active 2022-03 00:00: 00 [facility] Tobacco user Tobacco User Problem Active 2022-03 00:00: 00 [facility] Multiple joint pain Multiple Joint Pain Problem Active 04-25 00:00: 00 [facility] Diabetes mellitus Diabetes Mellitus Problem Active 03-22 00:00: 00 [facility] Hyperlipid emia Hyperlipid emia Problem Active 03-22 00:00: 00 [facility] Anxiety Anxiety Problem Active 03-22 00:00: 00 [facility] Essential hypertensi on Essential Hypertensi on Problem Active 03-22 00:00: 00 [facility] Dysphagia, pharyngoes ophageal phase Dysphagia, pharyngoes ophageal phase Disease Active 12-04 00:00: 00 Overview: Formattin g of this note might be different from the original. Added automatic ally from request for surgery [id number] [facility] Globus sensation Globus sensation Disease Active 12-04 00:00: 00 Overview: Formattin g of this note might be different from the original. Added automatic ally from request for surgery [id number] [facility] Thrush Thrush Disease Active 12-04 00:00: 00 Overview: Formattin g of this note might be different from the original. Added automatic ally from request for surgery [id number] [facility] Rectal cancer Rectal cancer Disease Active 06-13 00:00: 00 Overview: Formattin g of this note might be different from the original. Added automatic ally from request for surgery [id number] [facility] History of colon cancer History of colon cancer Disease Active 06-13 00:00: 00 Overview: Formattin g of this note might be different from the original. Added automatic ally from request for surgery [id number] [facility] Trigger middle finger of left hand Trigger middle finger of left hand Disease Active 305 00:00: 00 [facility] GERD with esophagiti s GERD with esophagiti s Disease Recurre nce 2017-0 1-03 00:00: 00 [facility] Tobacco dependence Tobacco dependence Disease Recurre nce 2016- 4-06 00:00: 00 [facility] Vomiting Vomiting Disease Active 2-13 00:00: 00 [facility] Elevated LFTs Elevated LFTs Disease Active 09-12 00:00: 00 [facility] Fatigue Fatigue Disease Active 09-12 00:00: 00 [facility] SBO (small bowel obstructio n) SBO (small bowel obstructio n) Disease Active 09-12 00:00: 00 [facility] Anemia Anemia Disease Active 09-12 00:00: 00 [facility] Nasal congestion Nasal congestion Disease Active 09-12 00:00: 00 [facility] Colon cancer Colon cancer Disease Recurre nce 09-12 00:00: 00 [facility] Preseptal cellulitis of right lower eyelid Preseptal cellulitis of right lower eyelid Disease Resolve d 2017-0317 00:00: 00 2023-06-19 00:00:00 2023-06-19 14:56:12 [facility] COPD (chronic obstructiv e pulmonary disease) COPD (chronic obstructiv e pulmonary disease) Disease Resolve d 04-18 00:00: 00 2018-01-06 00:00:00 2018-01-06 14:34:23 [facility] Allergies, Adverse Reactions, Alerts Allergy Name Allergy Type Status Severity Reaction(s) Onset Date Inactive Date Treating Clinician Comments Source Sulfa (Sulfona mide Antibiot ics) DA Active CO CHILDHOOD REACTION 08-04 00:00: 00 [facility] hydrocod one bit DA Active CO ITCHING, RASH 08-04 00:00: 00 [facility] SULFA (SULFONA MIDE ANTIBIOT ICS) Drug Class Active N/V 05-13 00:00: 00 [facility] HYDROCOD ONE-ACET AMINOPHE N DRUG Active Med ITCHING 05-13 00:00: 00 [facility] Sulfa (Sulfona mide Antibiot ics) Propensi ty to adverse reaction s Active Nausea and/or Vomiting 05-13 00:00: 00 [facility] Sulfa (Sulfona mide Antibiot ics) Propensi ty to adverse reaction s Active Nausea and/or Vomiting 05-13 00:00: 00 [facility] Hydrocod one-Acet aminophe n Propensi ty to adverse reaction s Active Itching 05-13 00:00: 00 [facility] Hydrocod one-Acet aminophe n Drug Allergy Active Rash 05-13 00:00: 00 [facility] hydrocod one bit DA Active CO ITCHING, RASH 11-07 00:00: 00 [facility] Sulfa (Sulfona mide Antibiot ics) DA Active CO CHILDHOOD REACTION 11-07 00:00: 00 [facility] VICODIN Allergy to substanc e Active Mild to moderate Rash [facility] SULFA (SULFONA MIDE ANTIBIOT ICS) Allergy to substanc e Active [facility] Family History Family Member Diagnosis Comments Start Date Stop Date Sourc e [facility] St[facility] grandfather [facility] Hy[facility] Natural sister Uterine Cancer [facility] Social History Social Habit Start Date Stop Date Quantity Comments Source Sexual orientation [facility] History of tobacco use Cigarette Smoker [facility] Alcoholic beverage intake 2024-01-09 00:00:00 2024-01-09 00:00:00 Current non-drinker of alcohol (finding) [facility] Cigarettes smoked current (pack per day) - Reported 2023-09-05 00:00:00 2023-09-05 00:00:00 [facility] Cigarette pack-years 2023-09-05 00:00:00 2023-09-05 00:00:00 [facility] Tobacco use and exposure 2023-09-05 00:00:00 2023-09-05 00:00:00 Smokeless tobacco non-user [facility] History of Social function 2023-06-12 00:00:00 2023-06-12 00:00:00 [facility] Alcohol intake 2023-06-03 00:00:00 2023-06-03 00:00:00 Current non-drinker of alcohol (finding) [facility] Exposure to SARS-CoV-2 (event) 2021-09-16 00:00:00 2021-09-26 22:48:00 Not sure [facility] Sex assigned at 1965 00:00:00 1965 00:00:00 [facility] Smoking Status Start Date Stop Date Source Heavy Tobacco Smoker [facility] Smokes tobacco daily 2023-09-05 00:00:00 [facility] Medications Ordered Medication Name Filled Medication Name Start Date Stop Date Current Medication? Ordering Clinician Indication Dosage Frequency Signature (SIG) Comments Components Source levothyroxi ne 75 mcg tablet 2023-03 00:00: 00 Yes [id number] 75ug Take 1 tablet by mouth every morning. [facility] methocarbam oL 500 mg tablet 2023-03 00:00: 00 Yes [id number] 500mg Take 1 tablet by mouth 4 (four) times daily. [facility] meloxicam 15 mg tablet 12-08 00:00: 00 01-08 00:00 :00 No [id number] 15mg Take 1 tablet by mouth in the morning. [facility] triamcinolo ne acetonide (KENALOG) injection 16 mg 09-10 14:45: 00 09-10 13:52 :00 No [id number] 16mg 16 mg, Intramuscu lar, ONCE, 1 dose, On Nalini 09/11/23 at 0945, Routine [facility] Blood-Gluco se Meter (GLUCOCARD SHINE METER) [facility] 09-09 00:00: 00 Yes [id number] 00 Use as directed [facility] lancets (TECHLITE LANCETS) 28 gauge [facility] 09-09 00:00: 00 Yes [id number] 00 Check FASTING BLOOD SUGAR DAILY [facility] blood sugar diagnostic (GLUCOCARD SHINE TEST STRIPS) strip 09-09 00:00: 00 Yes [id number] 00 Check fasting BLOOD SUGAR DAILY [facility] levothyroxi ne 75 mcg tablet 09-09 00:00: 00 01-14 00:00 :00 No [id number] 75ug Take 1 tablet by mouth every morning. [facility] meloxicam 15 mg tablet 09-09 00:00: 00 12-08 00:00 :00 No [id number] 15mg Take 1 tablet by mouth in the morning. [facility] mupirocin 2 % ointment 09-04 00:00: 00 Yes [id number] Apply to area(s) 3 (three) times daily. [facility] rabies immune globulin (PF) (HYPERRAB (PF)) injection 1,044 Units 09-02 01:30: 00 09-02 01:21 :00 No 20U/kg 1,044 Units (20 Units/kg ?52.2 kg), Intramuscu lar, ONCE, 1 dose, On Fri09/02/23 at 2030, Routine [facility] ketorolac 10 mg tablet 09-01 00:00: 00 01-08 00:00 :00 No [id number] 10mg Take 1 tablet by mouth every 6 (six) hours as needed for Pain (scale 4-6) or Pain (scale 7-10). [facility] amoxicillin -clavulanat e 875-125 mg per tablet 09-01 00:00: 00 09-12 04:59 :00 No [id number] 1{tbl} Take 1 tablet by mouth every 12 (twelve) hours for 10 days. [facility] 2 % cream 09-01 00:00: 00 09-04 00:00 :00 No [id number] Apply to area(s) 3 (three) times daily. [facility] traMADoL 50 mg tablet 08-24 00:00: 00 08-27 04:59 :00 No [id number] 50mg Take 1 tablet by mouth every 8 (eight) hours as needed for Pain (scale 4-6) for up to 2 days. Indication s: acute pain [facility] simeth[facility]one 80 mg chewable tablet 06-18 10:24: 48 Yes Take 80 mg as needed by oral route. [facility] ondansetron 4 mg disintegrat ing tablet 06-18 10:24: 48 Yes ondansetro n 4 mg disintegra ting tablet [facility] calcium carbonate (CALCIUM 500 ORAL) 06-18 10:19: 58 Yes Take by mouth. [facility] gabapentin 300 mg capsule 06-16 00:00: 00 07-29 04:59 :00 No [id number] 300mg Take 1 capsule by mouth in the morning and 1 capsule at noon and 1 capsule in the evening. Do all this for 42 days. [facility] lactated ringers IV infusion 1,000 mL 06-11 23:15: 00 Yes 1000mL at 75 mL/hr, 1,000 mL, IV Infusion, CONTINUOUS , Starting on Nalini 06/12/23 at 1815, Until Discontinu ed, Routine, PACU [facility] morpHINE (2 mg/mL) injection 2 mg 06-11 23:06: 39 Yes 2mg 2 mg, Slow IV Push, Q5MIN PRN, 3 doses, Starting on Nalini 06/12/23 at 1806, Until Discontinu ed, Routine, Pain (scale 4-6), PACU [facility] morpHINE (4 mg/mL) injection 4 mg 06-11 23:06: 39 Yes 4mg 4 mg, Slow IV Push, [id number], 3 doses, Starting on Nalini 06/12/23 at 1806, Until Discontinu ed, Routine, Pain (scale 7-10), PACU [facility] hydralAZINE (APRESOLINE ) injection 10 mg 06-11 23:06: 39 Yes 10mg 10 mg, Slow IV Push, Q20MIN PRN, 2 doses, Starting on Nalini 06/12/23 at 1806, Until Discontinu ed, Routine, Other, SBP > 170mmHg or DBP > 90mmHg, PACU [facility] labetaloL (NORMODYNE) injection 10 mg 06-11 23:06: 39 Yes 10mg 10 mg, Slow IV Push, Q15MIN PRN, 2 doses, Starting on Nalini 06/12/23 at 1806, Until Discontinu ed, Routine, SBP greater than 170mmHg or DBP greater than 90mmHg., PACU [facility] FENTanyl PF (SUBLIMAZE (PF)) injection 50 mcg 06-11 23:06: 39 Yes 50ug 50 mcg, Slow IV Push, Q5MIN PRN, 4 doses, Starting on Nalini 06/12/23 at 1806, Until Discontinu ed, Routine, Pain (scale 7-10), PACU [facility] FENTanyl PF (SUBLIMAZE (PF)) injection 25 mcg 06-11 23:06: 39 Yes 25ug 25 mcg, Slow IV Push, Q5MIN PRN, 4 doses, Starting on Nalini 06/12/23 at 1806, Until Discontinu ed, Routine, Pain (scale 4-6), PACU [facility] proMETHazin e (PHENERGAN) 6.25 mg in NaCl 0.9% (NS) 50 mL piggyback 06-11 23:06: 39 Yes 6.25mg 6.25 mg, IV Piggyback, at 200 mL/hr Administer over 15 Minutes, Q15MIN PRN, 4 doses, Starting on Nalini 06/12/23 at 1806, Until Discontinu ed, Routine, Nausea and Vomiting (N/V), If unresponsi ve to first choice antiemetic , PACU [facility] ondansetron (ZOFRAN (PF)) injection 4 mg 06-11 23:06: 39 Yes 4mg 4 mg, Slow IV Push, PRN, 1 dose, Starting on Nalini 06/12/23 at 1806, Until Discontinu ed, Routine, Nausea and Vomiting (N/V), PACU [facility] sodium chloride 0.9 % irrigation solution 06-11 22:48: 00 06-11 23:14 :06 No PRN, Starting on Nalini 06/12/23 at 1748, Until Nalini 06/12/23 at 1814, Intra-op [facility] iohexoL (OMNIPAQUE 300-50 mL)) injection 06-11 21:58: 00 06-11 23:14 :06 No PRN, Starting on Nalini 06/12/23 at 1658, Until Nalini 06/12/23 at 1814, Routine, Intra-op [facility] morpHINE (4 mg/mL) injection 2 mg 06-11 18:46: 12 06-11 23:14 :06 No 2mg 2 mg, Slow IV Push, Q15MIN PRN, 2 doses, Starting on Anlini 06/12/23 at 1346, Until Nalini 06/12/23 at 1814, Routine, Pain (scale 4-6), DSU Pre-op [facility] ketorolac (TORADOL) injection 30 mg 06-11 18:45: 00 06-11 19:08 :00 No 30mg 30 mg, Slow IV Push, ONCE, 1 dose, On Nalini 06/12/23 at 1400, Routine, DSU Pre-op [facility] lactated ringers IV infusion 1,000 mL 06-11 18:15: 00 06-11 18:33 :00 No 1000mL at 42 mL/hr, 1,000 mL, IV Infusion, ONCE, 1 dose, On Nalini 06/12/23 at 1315, Routine, DSU Pre-op [facility] tamsulosin (FLOMAX) 0.4 mg 24 hr capsule 06-11 00:00: 00 01-08 00:00 :00 No [id number] .4mg Take 1 capsule by mouth in the morning. [facility] oxyBUTYnin chloride 5 mg tablet 06-11 00:00: 00 01-08 00:00 :00 No [id number] 5mg Take 1 tablet by mouth in the morning and 1 tablet in the evening. [facility] cephALEXin 250 mg capsule 06-11 00:00: 00 06-17 04:59 :00 No [id number] 500mg Take 2 capsules by mouth every 12 (twelve) hours for 5 days. [facility] ketorolac (TORADOL) injection 15 mg 06-04 03:00: 00 06-04 03:06 :00 No 15mg 15 mg, Slow IV Push, ONCE, 1 dose, On Fri06/04/23 at 2200, JHOANA [facility] ondansetron (ZOFRAN (PF)) injection 4 mg 06-04 03:00: 00 06-04 03:05 :00 No 4mg 4 mg, Slow IV Push, ONCE, 1 dose, On Fri06/04/23 at 2200, JHOANA [facility] morpHINE (2 mg/mL) injection 2 mg 06-04 03:00: 00 06-04 03:07 :00 No 2mg 2 mg, Slow IV Push, ONCE, 1 dose, On Fri06/04/23 at 2200, STAT [facility] ibuprofen 800 mg tablet 06-03 00:00: 00 01-08 00:00 :00 No [id number] 800mg Take 1 tablet by mouth every 6 (six) hours as needed for Pain (scale 4-6) for up to 30 doses. [facility] fluconazole 200 mg tablet 06-03 00:00: 00 06-18 00:00 :00 No [id number] 400mg Take 2 tablets by mouth in the morning. [facility] ciprofloxac in HCl 500 mg tablet 06-03 00:00: 00 06-11 00:00 :00 No [id number] 500mg Take 1 tablet by mouth in the morning and 1 tablet in the evening. [facility] methocarbam oL 500 mg tablet 06-02 00:00: 00 01-08 00:00 :00 No [id number] 500mg Take 1 tablet by mouth 4 (four) times daily. [facility] tamsulosin 0.4 mg 24 hr capsule 06-02 00:00: 00 06-11 00:00 :00 No [id number] .4mg Take 1 capsule by mouth at bedtime. [facility] fluconazole (DIFLUCAN) tablet 400 mg 06-01 22:15: 00 06-08 13:59 :00 No 400mg 400 mg, Oral, DAILY, 7 doses, First dose on Fri06/02/23 at 1715, Last dose on Fri06/08/23 at 0900, JHOANA
Re ason for Anti-Infec tive: Documented Infection< br>Documen harvey Infection Site: Urine
D uration of Therapy: 7 days [facility] lactated ringers IV infusion 1,000 mL 06-01 18:30: 00 Yes 1000mL at 75 mL/hr, 1,000 mL, IV Infusion, CONTINUOUS , Starting on Fri06/02/23 at 1330, Until Discontinu ed, Routine, PACU [facility] lidocaine (XYLOCAINE) 2 % jelly URO-JET 06-01 17:56: 00 06-01 18:25 :04 No PRN, Starting on Fri06/02/23 at 1256, Until Fri06/02/23 at 1325, Routine, Intra-op [facility] sodium chloride 0.9 % irrigation solution 06-01 17:50: 00 Yes PRN, Starting on Fri06/02/23 at 1250, Until Discontinu ed, Intra-op [facility] iopamidol (ISOVUE 370-500 mL) injection 06-01 17:50: 00 06-01 18:25 :04 No PRN, Starting on Fri06/02/23 at 1250, Until Fri06/02/23 at 1325, Routine, Intra-op [facility] pantoprazol e (PROTONIX) EC tablet 40 mg 06-01 14:00: 00 Yes 40mg 40 mg, Oral, DAILY, First dose on Fri06/02/23 at 0900, Until Discontinu ed, Routine [facility] cyclobenzap rine (FLEXERIL) tablet 10 mg 06-01 08:00: 00 06-01 07:07 :00 No 10mg 10 mg, Oral, ONCE, 1 dose, On Fri06/02/23 at 0300, Routine [facility] nicotine (NICODERM) 14 mg/24 hr patch 1 Patch 06-01 04:15: 00 Yes 1{patch } 1 Patch, Topical, Administer over 24 Hours, Q24H, First dose on Fri06/01/23 at 2315, Until Discontinu ed, Routine [facility] tamsulosin (FLOMAX) capsule 0.4 mg 06-01 02:00: 00 Yes .4mg 0.4 mg, Oral, QHS, First dose on 06/01/23 at 2100, Until Discontinu ed, Routine [facility] atorvastati n (LIPITOR) tablet 10 mg 06-01 02:00: 00 Yes 10mg 10 mg, Oral, QHS, First dose on 06/01/23 at 2100, Until Discontinu ed, Routine [facility] methocarbam oL (ROBAXIN) tablet 500 mg 06-01 01:00: 00 Yes 500mg 500 mg, Oral, QID, First dose on Fri06/01/23 at 2000, Until Discontinu ed, Routine [facility] buPROPion SR (WELLBUTRIN SR) tablet 150 mg 06-01 01:00: 00 Yes 150mg 150 mg, Oral, BID, First dose on Fri06/01/23 at 2000, Until Discontinu ed, Routine [facility] acetaminoph en (TYLENOL) tablet 650 mg 05-31 23:00: 00 Yes 650mg 650 mg, Oral, Q6H, First dose (after last modificati on) on Fri06/01/23 at 1800, Until Discontinu ed, [facility] 1,000 mL 05-31 22:15: 00 06-01 21:59 :00 No 1000mL at 150 mL/hr, 1,000 mL, IV Infusion, CONTINUOUS , Starting on Fri06/01/23 at 1715, Until Fri06/02/23 at 1659, Routine [facility] Sliding Scale Insulin - Lispro (HumaLOG) 05-31 22:00: 00 Yes Subcutaneo us, TID MEALS+HS, First dose on Fri06/01/23 at 1700, Until Discontinu ed, Routine [facility] enoxaparin (LOVENOX) injection 40 mg 05-31 22:00: 00 Yes 40mg 40 mg, Subcutaneo us, DAILY, First dose on Fri06/01/23 at 1700, Until Discontinu ed, Routine [facility] morpHINE (4 mg/mL) injection 4 mg 05-31 21:48: 25 Yes 4mg 4 mg, Slow IV Push, Q4HPRN, Starting on Fri06/01/23 at 1648, Until Discontinu ed, Routine, Pain (scale 7-10) [facility] glucagon (GLUCAGEN DIAGNOSTIC KIT) injection 1 mg 05-31 21:46: 43 Yes 1mg 1 mg, Intramuscu lar, PRN, Starting on Fri06/01/23 at 1646, Until Discontinu ed, JHOANA, Blood Glucose < or = 70 mg/dL and patient is NPO, unable to swallow or has mental changes. [facility] dextrose 50 % in water (D50W) injection 25 mL 05-31 21:46: 43 Yes 25mL 25 mL, Slow IV Push, PRN, Starting on Fri06/01/23 at 1646, Until Discontinu ed, JHOANA, Blood Glucose < or = 70 mg/dL and patient is NPO, unable to swallow or has mental status changes. [facility] guaiFENesin (FENESIN IR) tablet 200 mg 05-31 21:46: 20 Yes 200mg 200 mg, Oral, Q4HPRN, Starting on Fri06/01/23 at 1646, Until Discontinu ed, Routine, Cough [facility] ondansetron (ZOFRAN (PF)) injection 4 mg 05-31 21:46: 20 Yes 4mg 4 mg, Slow IV Push, Q6HPRN, Starting on Fri06/01/23 at 1646, Until Discontinu ed, Routine, Nausea and Vomiting (N/V) [facility] sennosides- docusate sodium (SENOKOT-S) 8.6-50 mg per tablet 1 tablet 05-31 21:46: 20 Yes 1{tbl} 1 tablet, Oral, QDAILYPRN, Starting on Fri06/01/23 at 1646, Until Discontinu ed, Routine, Constipati on [facility] HYDROcodone -acetaminop hen (NORCO 5) 5-325 mg tablet 1 tablet 05-31 21:46: 20 06-02 21:45 :20 No 1{tbl} 1 tablet, Oral, Q6HPRN, Starting on Fri06/01/23 at 1646, Until Fri06/03/23 at 1645, Routine, Pain (scale 4-6) [facility] gabapentin (NEURONTIN) capsule 300 mg 05-31 21:45: 53 Yes 300mg 300 mg, Oral, QHSPRN, Starting on Fri06/01/23 at 1645, Until Discontinu ed, Routine, neuropathi c pain [facility] cefTRIAXone (ROCEPHIN) 1,000 mg in NaCl 0.9% (NS) 100 mL MINI-BAG 05-31 18:30: 00 05-31 19:08 :00 No 1000mg 1,000 mg, IV Piggyback, ONCE, 1 dose, On Fri06/01/23 at 1330, Administer over 30 Minutes, 100 mL
Reas on for Anti-Infec tive: Documented Infection< br>Documen harvey Infection Site: Urine
D uration of Therapy: Once (ED) [facility] ketorolac (TORADOL) injection 15 mg 05-31 17:30: 00 05-31 16:34 :00 No 15mg 15 mg, Slow IV Push, ONCE, 1 dose, On Fri06/01/23 at 1230, JHOANA [facility] NaCl 0.9% (NS) bolus infusion 1,000 mL 05-31 17:15: 00 05-31 19:08 :00 No 1000mL at 999 mL/hr, 1,000 mL, IV Infusion, ONCE, 1 dose, On Fri06/01/23 at 1215, JHOANA [facility] ondansetron (ZOFRAN (PF)) injection 4 mg 05-31 16:30: 00 05-31 16:34 :00 No 4mg 4 mg, Slow IV Push, ONCE, 1 dose, On Fri24 at 1130, JHOANA [facility] HYDROcodone -acetaminop hen 5-325 mg tablet 3-15 00:00: 00 Yes [facility] ketorolac 10 mg tablet 3-12 00:00: 00 Yes [facility] traMADoL 50 mg tablet 2-16 00:00: 00 Yes 1 po twice daily for severe pain. [facility] atorvastati n 40 mg tablet 2022-03 1-09 00:00: 00 Yes 40mg Take 1 tablet by mouth at bedtime. [facility] cephALEXin (KEFLEX) capsule 500 mg 09-27 13:00: 00 Yes 500mg 500 mg, Oral, QID, First dose on Fri09/27/21 at 0800, Until Discontinu ed, JHOANA
Re ason for Anti-Infec tive: Documented Infection< br>Documen harvey Infection Site: Urine
D uration of Therapy: Other (see Comments) [facility] iopamidol (ISOVUE 370-500 mL) injection 100 mL 09-27 07:15: 00 09-27 05:57 :00 No [id number] 100mL 100 mL, Intravenou s, ONCE, 1 dose, On Fri09/27/21 at 0215, Routine [facility] NaCl 0.9% (NS) bolus infusion 1,000 mL 09-27 06:45: 00 09-27 14:48 :00 No 1000mL at 999 mL/hr, 1,000 mL, IV Infusion, ONCE, 1 dose, On Nalini 09/27/21 at 0145, JHOANA [facility] ondansetron (ZOFRAN (PF)) injection 4 mg 09-27 06:45: 00 09-27 06:21 :00 No 4mg 4 mg, Slow IV Push, ONCE, 1 dose, On Nalini 09/27/21 at 0145, JHOANA [facility] ketorolac (TORADOL) injection 15 mg 09-27 05:45: 00 09-27 06:21 :00 No 15mg 15 mg, Slow IV Push, ONCE, 1 dose, On Fri09/27/21 at 0045, JHOANA [facility] cefTRIAXone (ROCEPHIN) 1,000 mg in NaCl 0.9% (NS) 50 mL MINI-BAG 09-27 05:30: 00 09-27 08:24 :00 No 1000mg 1,000 mg, IV Piggyback, ONCE, 1 dose, On Fri09/27/21 at 0030, Administer over 30 Minutes, 50 mL
Reas on for Anti-Infec tive: Documented Infection< br>Documen harvey Infection Site: Urine
D uration of Therapy: Other (see Comments) [facility] diazePAM (VALIUM) tablet 5 mg 09-27 04:15: 00 09-27 04:46 :00 No 5mg 5 mg, Oral, ONCE, 1 dose, On Fri09/26/21 at 2315, JHOANA [facility] glipiZIDE 10 mg tablet 09-27 00:00: 00 Yes [id number] 10mg Take 1 tablet by mouth in the morning. [facility] cefdinir 300 mg capsule 09-27 00:00: 00 06-11 00:00 :00 No [id number] 300mg Take 1 capsule by mouth in the morning and 1 capsule in the evening. [facility] atorvastati n 10 mg tablet 24 00:00: 00 06-18 00:00 :00 No [id number] 10mg Take 1 tablet by mouth at bedtime. [facility] atorvastati n 10 mg tablet 2020-03 1-17 00:00: 00 Yes [id number] 10mg Take 1 tablet by mouth at bedtime. [facility] gabapentin 300 mg capsule 2020-03 0-15 00:00: 00 06-11 00:00 :00 No [id number] 300mg Take 1 capsule by mouth at bedtime as needed. [facility] glipiZIDE XL 5 mg 24 hr tablet 2020-03 007 00:00: 00 06-18 00:00 :00 No [id number] 5mg Take 1 tablet by mouth daily with breakfast. [facility] BUPROPION SR 150 mg SR tablet 12-11 00:00: 00 06-11 00:00 :00 No [id number] TAKE 1 TABLET BY MOUTH TWICE A DAY [facility] pantoprazol e 40 mg EC tablet 12-06 00:00: 00 06-11 00:00 :00 No [id number] 40mg Take 1 tablet by mouth daily. [facility] metFORMIN 1,000 mg tablet 12-04 00:00: 00 Yes [id number] 1000mg Take 1 tablet by mouth 2 (two) times daily with meals. [facility] lisinopriL 5 mg tablet 11-29 00:00: 00 Yes [id number] 5mg Take 1 tablet by mouth daily. [facility] blood sugar diagnostic (ONETOUCH ULTRA TEST) strip 11-23 00:00: 00 Yes Use to test glucose once a day E11.9 [facility] lancets (ONETOUCH DELICA LANCETS) 30 gauge Misc 11-23 00:00: 00 Yes Use to test glucose once a day E11.9 [facility] blood sugar diagnostic (ONETOUCH ULTRA TEST) strip 11-23 00:00: 00 Yes Use to test glucose once a day E11.9 [facility] albuterol 90 mcg/actuati on inhaler 11-16 00:00: 00 06-11 00:00 :00 No [id number] 2{puff} Inhale 2 Puffs every 4 (four) hours as needed for Wheezing or Shortness of Breath. [facility] acetaminoph en (TYLENOL EXTRA STRENGTH) 500 mg tablet 11-16 00:00: 00 06-11 00:00 :00 No [id number] 500mg Take 1 tablet by mouth every 6 (six) hours as needed for Pain for up to 20 doses. [facility] amlodipine 5 mg tablet Take by oral route for 90 days. amlodipine 5 mg tablet Take by oral route for 90 days. No amlodipine 5 mg tablet Take by oral route for 90 days. [facility] aspirin 81 mg chewable tablet Chew 1 tablet every day by oral route. aspirin 81 mg chewable tablet Chew 1 tablet every day by oral route. No 1 Q1D aspirin 81 mg chewable tablet Chew 1 tablet every day by oral route. [facility] Calcium 600 + D(3) 600 mg-10 mcg (400 unit) tablet Take 1 tablet every day by oral route. Calcium 600 + D(3) 600 mg-10 mcg (400 unit) tablet Take 1 tablet every day by oral route. No 1 Q1D Calcium 600 + D(3) 600 mg-10 mcg (400 unit) tablet Take 1 tablet every day by oral route. [facility] gabapentin 300 mg capsule Take 1 capsule every day by oral route for 90 days. gabapentin 300 mg capsule Take 1 capsule every day by oral route for 90 days. No 1capsul e(s) Q1D gabapentin 300 mg capsule Take 1 capsule every day by oral route for 90 days. [facility] glipizide ER 10 mg [...] day by oral route for 90 days. [facility] glipizide ER 2.5 mg tablet, extended release 24 hr TAKE 1 TABLET BY MOUTH EVERY DAY glipizide ER 2.5 mg tablet, extended release 24 hr TAKE 1 TABLET BY MOUTH EVERY DAY No glipizide ER 2.5 mg tablet, extended release 24 hr TAKE 1 TABLET BY MOUTH EVERY DAY [facility] hydroxyzine HCl 50 mg tablet TAKE 1 TABLET BY MOUTH FOUR TIMES A DAY FOR 10 DAYS hydroxyzine HCl 50 mg tablet TAKE 1 TABLET BY MOUTH FOUR TIMES A DAY FOR 10 DAYS No hydroxyzin e HCl 50 mg tablet TAKE 1 TABLET BY MOUTH FOUR TIMES A DAY FOR 10 DAYS [facility] ibuprofen 200 mg capsule Take 3 capsules every 4 hours by oral route for 3 days. ibuprofen 200 mg capsule Take 3 capsules every 4 hours by oral route for 3 days. No 3capsul e(s) Q4H ibuprofen 200 mg capsule Take 3 capsules every 4 hours by oral route for 3 days. [facility] metformin ER 500 mg [...] day by oral route for 90 days. [facility] omeprazole 20 mg tablet,billy yed release Take 1 tablet every day by oral route. omeprazole 20 mg tablet,billy yed release Take 1 tablet every day by oral route. No 1 Q1D omeprazole 20 mg tablet,del ayed release Take 1 tablet every day by oral route. [facility] OneTouch Delica Lancets 30 gauge OneTouch Delica Lancets 30 gauge No OneTouch Delica Lancets [address] [facility] OneTouch Ultra Test strips Use as directed. OneTouch Ultra Test strips Use as directed. No OneTouch Ultra Test strips Use as directed. [facility] tramadol 37.5 mg-acetamin ophen [...] TO 6 HOURS NEEDED FOR MODERATE PAIN [facility] amlodipine 5 mg tablet Take by oral route for 90 days. amlodipine 5 mg tablet Take by oral route for 90 days. No amlodipine 5 mg tablet Take by oral route for 90 days. [facility] aspirin 81 mg chewable tablet Chew 1 tablet every day by oral route. aspirin 81 mg chewable tablet Chew 1 tablet every day by oral route. No 1 Q1D aspirin 81 mg chewable tablet Chew 1 tablet every day by oral route. [facility] atorvastati n 40 mg tablet TAKE 1 TABLET BY MOUTH EVERYDAY AT BEDTIME atorvastati n 40 mg tablet TAKE 1 TABLET BY MOUTH EVERYDAY AT BEDTIME No atorvastat in 40 mg tablet TAKE 1 TABLET BY MOUTH EVERYDAY AT BEDTIME [facility] Calcium 600 + D(3) 600 mg-10 mcg (400 unit) tablet Take 1 tablet every day by oral route. Calcium 600 + D(3) 600 mg-10 mcg (400 unit) tablet Take 1 tablet every day by oral route. No 1 Q1D Calcium 600 + D(3) 600 mg-10 mcg (400 unit) tablet Take 1 tablet every day by oral route. [facility] Cipro 500 mg tablet Take 1 tablet every 12 hours by oral route for 7 days. Cipro 500 mg tablet Take 1 tablet every 12 hours by oral route for 7 days. No 1 Q12H Cipro 500 mg tablet Take 1 tablet every 12 hours by oral route for 7 days. [facility] glipizide 10 mg tablet TAKE 1 TABLET BY MOUTH EVERY DAY IN THE MORNING glipizide 10 mg tablet TAKE 1 TABLET BY MOUTH EVERY DAY IN THE MORNING No glipizide 10 mg tablet TAKE 1 TABLET BY MOUTH EVERY DAY IN THE MORNING [facility] glipizide ER 10 mg [...] day by oral route for 90 days. [facility] glipizide ER 2.5 mg tablet, extended release 24 hr TAKE 1 TABLET BY MOUTH EVERY DAY glipizide ER 2.5 mg tablet, extended release 24 hr TAKE 1 TABLET BY MOUTH EVERY DAY No glipizide ER 2.5 mg tablet, extended release 24 hr TAKE 1 TABLET BY MOUTH EVERY DAY [facility] hydroxyzine HCl 50 mg tablet TAKE 1 TABLET BY MOUTH FOUR TIMES A DAY FOR 10 DAYS hydroxyzine HCl 50 mg tablet TAKE 1 TABLET BY MOUTH FOUR TIMES A DAY FOR 10 DAYS No hydroxyzin e HCl 50 mg tablet TAKE 1 TABLET BY MOUTH FOUR TIMES A DAY FOR 10 DAYS [facility] lisinopril 5 mg tablet TAKE 1 TABLET BY MOUTH EVERY DAY lisinopril 5 mg tablet TAKE 1 TABLET BY MOUTH EVERY DAY No lisinopril 5 mg tablet TAKE 1 TABLET BY MOUTH EVERY DAY [facility] metformin ER 500 mg [...] day by oral route for 90 days. [facility] omeprazole 20 mg capsule,del ayed release omeprazole 20 mg capsule,del ayed release No omeprazole 20 mg capsule,de layed release [facility] omeprazole 20 mg tablet,billy yed release Take 1 tablet every day by oral route. omeprazole 20 mg tablet,billy yed release Take 1 tablet every day by oral route. No 1 Q1D omeprazole 20 mg tablet,del ayed release Take 1 tablet every day by oral route. [facility] ondansetron 4 mg disintegrat ing tablet ondansetron 4 mg disintegrat ing tablet No ondansetro n 4 mg disintegra ting tablet [facility] OneTouch Delica Lancets 30 gauge OneTouch Delica Lancets 30 gauge No OneTouch Delica Lancets 30 gauge [facility] OneTouch Ultra Test strips Use as directed. OneTouch Ultra Test strips Use as directed. No OneTouch Ultra Test strips Use as directed. [facility] tramadol 37.5 mg-acetamin ophen [...] TO 6 HOURS NEEDED FOR MODERATE PAIN [facility] aspirin 81 mg chewable tablet Chew 1 tablet every day by oral route. aspirin 81 mg chewable tablet Chew 1 tablet every day by oral route. No 1 Q1D aspirin 81 mg chewable tablet Chew 1 tablet every day by oral route. [facility] atorvastati n 40 mg tablet Take 1 tablet every day by oral route for 30 days. atorvastati n 40 mg tablet Take 1 tablet every day by oral route for 30 days. No 1 Q1D atorvastat in 40 mg tablet Take 1 tablet every day by oral route for 30 days. [facility] Bromfed DM 2 mg-30 [...] day by oral route for 7 days. [facility] Calcium 600 + D(3) 600 mg-10 mcg (400 unit) tablet Take 1 tablet every day by oral route. Calcium 600 + D(3) 600 mg-10 mcg (400 unit) tablet Take 1 tablet every day by oral route. No 1 Q1D Calcium 600 + D(3) 600 mg-10 mcg (400 unit) tablet Take 1 tablet every day by oral route. [facility] cholecalcif dina (vitamin D3) [...] week by oral route for 90 days. [facility] glipizide ER 10 mg [...] day by oral route for 30 days. [facility] levofloxaci n 750 mg tablet Take 1 tablet every day by oral route for 7 days. levofloxaci n 750 mg tablet Take 1 tablet every day by oral route for 7 days. No 1 Q1D levofloxac in 750 mg tablet Take 1 tablet every day by oral route for 7 days. [facility] lisinopril 5 mg tablet 1 tab by mouth daily lisinopril 5 mg tablet 1 tab by mouth daily No lisinopril 5 mg tablet 1 tab by mouth daily [facility] metformin 500 mg tablet Take 1 tablet twice a day by oral route for 30 days. metformin 500 mg tablet Take 1 tablet twice a day by oral route for 30 days. No 1 BID metformin 500 mg tablet Take 1 tablet twice a day by oral route for 30 days. [facility] tramadol 50 mg tablet Take 1 tablet twice a day by oral route for 30 days. tramadol 50 mg tablet Take 1 tablet twice a day by oral route for 30 days. No 1 BID tramadol 50 mg tablet Take 1 tablet twice a day by oral route for 30 days. [facility] albuterol sulfate HFA 90 mcg/actuati on aerosol inhaler Inhale 2 puffs every 4 hours by inhalation route. albuterol sulfate HFA 90 mcg/actuati on aerosol inhaler Inhale 2 puffs every 4 hours by inhalation route. No 2puff(s ) Q4H albuterol sulfate HFA 90 mcg/actuat ion aerosol inhaler Inhale 2 puffs every 4 hours by inhalation route. [facility] aspirin 81 mg chewable tablet Chew 1 tablet every day by oral route. aspirin 81 mg chewable tablet Chew 1 tablet every day by oral route. No 1 Q1D aspirin 81 mg chewable tablet Chew 1 tablet every day by oral route. [facility] atorvastati n 40 mg tablet Take 1 tablet every day by oral route for 30 days. atorvastati n 40 mg tablet Take 1 tablet every day by oral route for 30 days. No 1 Q1D atorvastat in 40 mg tablet Take 1 tablet every day by oral route for 30 days. [facility] Calcium 600 + D(3) 600 mg-10 mcg (400 unit) tablet Take 1 tablet every day by oral route. Calcium 600 + D(3) 600 mg-10 mcg (400 unit) tablet Take 1 tablet every day by oral route. No 1 Q1D Calcium 600 + D(3) 600 mg-10 mcg (400 unit) tablet Take 1 tablet every day by oral route. [facility] cholecalcif dina (vitamin D3) [...] week by oral route for 90 days. [facility] glipizide ER 10 mg [...] day by oral route for 30 days. [facility] lisinopril 5 mg tablet 1 tab by mouth daily lisinopril 5 mg tablet 1 tab by mouth daily No lisinopril 5 mg tablet 1 tab by mouth daily [facility] metformin 500 mg tablet Take 1 tablet twice a day by oral route for 30 days. metformin 500 mg tablet Take 1 tablet twice a day by oral route for 30 days. No 1 BID metformin 500 mg tablet Take 1 tablet twice a day by oral route for 30 days. [facility] tramadol 50 mg tablet Take 1 tablet twice a day by oral route for 30 days. tramadol 50 mg tablet Take 1 tablet twice a day by oral route for 30 days. No 1 BID tramadol 50 mg tablet Take 1 tablet twice a day by oral route for 30 days. [facility] albuterol sulfate HFA 90 mcg/actuati on aerosol inhaler Inhale 2 puffs every 4 hours by inhalation route. albuterol sulfate HFA 90 mcg/actuati on aerosol inhaler Inhale 2 puffs every 4 hours by inhalation route. No 2puff(s ) Q4H albuterol sulfate HFA 90 mcg/actuat ion aerosol inhaler Inhale 2 puffs every 4 hours by inhalation route. [facility] aspirin 81 mg chewable tablet Chew 1 tablet every day by oral route. aspirin 81 mg chewable tablet Chew 1 tablet every day by oral route. No 1 Q1D aspirin 81 mg chewable tablet Chew 1 tablet every day by oral route. [facility] atorvastati n 40 mg tablet Take 1 tablet every day by oral route for 30 days. atorvastati n 40 mg tablet Take 1 tablet every day by oral route for 30 days. No 1 Q1D atorvastat in 40 mg tablet Take 1 tablet every day by oral route for 30 days. [facility] Calcium 600 + D(3) 600 mg-10 mcg (400 unit) tablet Take 1 tablet every day by oral route. Calcium 600 + D(3) 600 mg-10 mcg (400 unit) tablet Take 1 tablet every day by oral route. No 1 Q1D Calcium 600 + D(3) 600 mg-10 mcg (400 unit) tablet Take 1 tablet every day by oral route. [facility] cholecalcif dina (vitamin D3) [...] week by oral route for 90 days. [facility] glipizide ER 10 mg [...] day by oral route for 30 days. [facility] lisinopril 5 mg tablet 1 tab by mouth daily lisinopril 5 mg tablet 1 tab by mouth daily No lisinopril 5 mg tablet 1 tab by mouth daily [facility] metformin 500 mg tablet Take 1 tablet twice a day by oral route for 30 days. metformin 500 mg tablet Take 1 tablet twice a day by oral route for 30 days. No 1 BID metformin 500 mg tablet Take 1 tablet twice a day by oral route for 30 days. [facility] tramadol 50 mg tablet Take 1 tablet twice a day by oral route for 30 days. tramadol 50 mg tablet Take 1 tablet twice a day by oral route for 30 days. No 1 BID tramadol 50 mg tablet Take 1 tablet twice a day by oral route for 30 days. [facility] atorvastati n 40 mg tablet Take 1 tablet every day by oral route for 30 days. atorvastati n 40 mg tablet Take 1 tablet every day by oral route for 30 days. No 1 Q1D atorvastat in 40 mg tablet Take 1 tablet every day by oral route for 30 days. [facility] Calcium 600 + D(3) 600 mg-10 mcg (400 unit) tablet Take 1 tablet every day by oral route. Calcium 600 + D(3) 600 mg-10 mcg (400 unit) tablet Take 1 tablet every day by oral route. No 1 Q1D Calcium 600 + D(3) 600 mg-10 mcg (400 unit) tablet Take 1 tablet every day by oral route. [facility] cholecalcif dina (vitamin D3) [...] week by oral route for 90 days. [facility] glipizide ER 10 mg [...] day by oral route for 30 days. [facility] lisinopril 5 mg tablet 1 tab by mouth daily lisinopril 5 mg tablet 1 tab by mouth daily No lisinopril 5 mg tablet 1 tab by mouth daily [facility] metformin ER 500 mg tablet,exte nded release 24 hr Take 2 tablets every day by oral route at dinner. metformin ER 500 mg tablet,exte nded release 24 hr Take 2 tablets every day by oral route at dinner. No 2 Q1D metformin ER 500 mg tablet,ext ended release 24 hr Take 2 tablets every day by oral route at dinner. [facility] Naprosyn 500 mg tablet 1 po twice daily with food as needed for joint pain. Naprosyn 500 mg tablet 1 po twice daily with food as needed for joint pain. No Naprosyn 500 mg tablet 1 po twice daily with food as needed for joint pain. [facility] tramadol 50 mg tablet 1 po twice daily for severe pain. tramadol 50 mg tablet 1 po twice daily for severe pain. No tramadol 50 mg tablet 1 po twice daily for severe pain. [facility] atorvastati n 40 mg tablet Take 1 tablet every day by oral route for 30 days. atorvastati n 40 mg tablet Take 1 tablet every day by oral route for 30 days. No 1 Q1D atorvastat in 40 mg tablet Take 1 tablet every day by oral route for 30 days. [facility] famotidine 20 mg tablet Take 1 tablet twice a day by oral route. famotidine 20 mg tablet Take 1 tablet twice a day by oral route. No 1 BID famotidine 20 mg tablet Take 1 tablet twice a day by oral route. [facility] glipizide ER 10 [...] day by oral route for 30 days. [facility] lisinopril 5 mg tablet 1 tab by mouth daily lisinopril 5 mg tablet 1 tab by mouth daily No lisinopril 5 mg tablet 1 tab by mouth daily [facility] loperamide 2 mg tablet Take 2 mg as needed by oral route. loperamide 2 mg tablet Take 2 mg as needed by oral route. No 2mg loperamide 2 mg tablet Take 2 mg as needed by oral route. [facility] metformin ER 500 mg tablet,exte nded release 24 hr Take 2 tablets every day by oral route at dinner. metformin ER 500 mg tablet,exte nded release 24 hr Take 2 tablets every day by oral route at dinner. No 2 Q1D metformin ER 500 mg tablet,ext ended release 24 hr Take 2 tablets every day by oral route at dinner. [facility] tramadol 50 mg tablet 1 po twice daily for severe pain. tramadol 50 mg tablet 1 po twice daily for severe pain. No tramadol 50 mg tablet 1 po twice daily for severe pain. [facility] Immunizations Ordered Immunization Name Filled Immunization Name Date Status Comments Source Human Rabies Vaccine From Chicken Fibroblast Culture (TelcareAVERT) 2023-09-16 00:00:00 Completed Human Rabies Vaccine From Chicken Fibroblast Culture (RABAVERT) 2023-09-09 00:00:00 Completed Human Rabies Vaccine From Chicken Fibroblast Culture (RABAVERT) 2023-09-05 00:00:00 Completed [facility] Human Rabies Vaccine From Chicken Fibroblast Culture (RABAVERT) 2023-09-02 00:00:00 Completed [facility] TDAP 2018-05-13 00:00:00 Completed [facility] TDAP 2018-05-13 00:00:00 Completed [facility] TDAP 2018-05-13 00:00:00 Completed [facility] TDAP 2018-05-13 00:00:00 Completed [facility] TDAP 2018-05-13 00:00:00 Completed [facility] TDAP 2018-05-13 00:00:00 Completed [facility] TDAP Unknown Completed [facility] TDAP Unknown Completed [facility] TDAP Unknown Completed [facility] TDAP Unknown Completed [facility] TDAP Unknown Completed [facility] TDAP Unknown Completed [facility] TDAP Unknown Completed [facility] TDAP Unknown Completed [facility] TDAP Unknown Completed [facility] TDAP Unknown Completed [facility] TDAP Unknown Completed [facility] TDAP Unknown Completed [facility] TDAP Unknown Completed [facility] TDAP Unknown Completed [facility] TDAP Unknown Completed [facility] TDAP Unknown Completed [facility] TDAP Unknown Completed [facility] TDAP Unknown Completed [facility] TDAP Unknown Completed [facility] TDAP Unknown Completed [facility] TDAP Unknown Completed [facility] TDAP Unknown Completed [facility] TDAP Unknown Completed [facility] TDAP Unknown Completed [facility] TDAP Unknown Completed [facility] TDAP Unknown Completed [facility] TDAP Unknown Completed [facility] TDAP Unknown Completed [facility] TDAP Unknown Completed [facility] TDAP Unknown Completed [facility] TDAP Unknown Completed [facility] Human Rabies Vaccine From Chicken Fibroblast Culture (RABAVERT) Unknown Completed [facility] TDAP Unknown Completed [facility] Human Rabies Vaccine From Chicken Fibroblast Culture (RABAVERT) Unknown Completed [facility] TDAP Unknown Completed [facility] Human Rabies Vaccine From Chicken Fibroblast Culture (RABAVERT) Unknown Completed [facility] Human Rabies Vaccine From Chicken Fibroblast Culture (RABAVERT) Unknown Completed [facility] TDAP Unknown Completed [facility] TDAP Unknown Completed [facility] Human Rabies Vaccine From Chicken Fibroblast Culture (RABAVERT) Unknown Completed [facility] Human Rabies Vaccine From Chicken Fibroblast Culture (RABAVERT) Unknown Completed [facility] TDAP Unknown Completed [facility] Human Rabies Vaccine From Chicken Fibroblast Culture (RABAVERT) Unknown Completed [facility] Human Rabies Vaccine From Chicken Fibroblast Culture (RABAVERT) Unknown Completed [facility] TDAP Unknown Completed [facility] Human Rabies Vaccine From Chicken Fibroblast Culture (RABAVERT) Unknown Completed [facility] Human Rabies Vaccine From Chicken Fibroblast Culture (RABAVERT) Unknown Completed [facility] TDAP Unknown Completed [facility] Human Rabies Vaccine From Chicken Fibroblast Culture (RABAVERT) Unknown Completed [facility] Human Rabies Vaccine From Chicken Fibroblast Culture (RABAVERT) Unknown Completed [facility] TDAP Unknown Completed [facility] Human Rabies Vaccine From Chicken Fibroblast Culture (RABAVERT) Unknown Completed [facility] Human Rabies Vaccine From Chicken Fibroblast Culture (RABAVERT) Unknown Completed [facility] TDAP Unknown Completed [facility] Human Rabies Vaccine From Chicken Fibroblast Culture (RABAVERT) Unknown Completed [facility] Human Rabies Vaccine From Chicken Fibroblast Culture (RABAVERT) Unknown Completed [facility] TDAP Unknown Completed [facility] Human Rabies Vaccine From Chicken Fibroblast Culture (RABAVERT) Unknown Completed [facility] Human Rabies Vaccine From Chicken Fibroblast Culture (RABAVERT) Unknown Completed [facility] TDAP Unknown Completed [facility] Human Rabies Vaccine From Chicken Fibroblast Culture (RABAVERT) Unknown Completed [facility] Human Rabies Vaccine From Chicken Fibroblast Culture (RABAVERT) Unknown Completed [facility] TDAP Unknown Completed [facility] Human Rabies Vaccine From Chicken Fibroblast Culture (RABAVERT) Unknown Completed [facility] Human Rabies Vaccine From Chicken Fibroblast Culture (RABAVERT) Unknown Completed [facility] TDAP Unknown Completed [facility] Human Rabies Vaccine From Chicken Fibroblast Culture (RABAVERT) Unknown Completed [facility] Human Rabies Vaccine From Chicken Fibroblast Culture (RABAVERT) Unknown Completed [facility] TDAP Unknown Completed [facility] Human Rabies Vaccine From Chicken Fibroblast Culture (RABAVERT) Unknown Completed [facility] Human Rabies Vaccine From Chicken Fibroblast Culture (RABAVERT) Unknown Completed [facility] TDAP Unknown Completed [facility] Human Rabies Vaccine From Chicken Fibroblast Culture (RABAVERT) Unknown Completed [facility] Human Rabies Vaccine From Chicken Fibroblast Culture (RABAVERT) Unknown Completed [facility] TDAP Unknown Completed [facility] Human Rabies Vaccine From Chicken Fibroblast Culture (RABAVERT) Unknown Completed [facility] Human Rabies Vaccine From Chicken Fibroblast Culture (RABAVERT) Unknown Completed [facility] Vital Signs Vital Name Observation Time Observation Value Comments S ource Systolic blood pressure 2024-01-09 20:16:00 138 mm[Hg] [facility] Diastolic blood pressure 2024-01-09 20:16:00 86 mm[Hg] [facility] Heart rate 2024-01-09 20:16:00 79 /min [facility] Body temperature 2024-01-09 20:16:00 36.78 Fauzia [facility] Respiratory rate 2024-01-09 20:16:00 18 /min [facility] Body height 2024-01-09 20:16:00 149.9 cm [facility] Body weight 2024-01-09 20:16:00 55.792 kg [facility] BMI 2024-01-09 20:16:00 24.84 kg/m2 [facility] Oxygen saturation in Arterial blood by Pulse oximetry 2024-01-09 20:16:00 98 /min [facility] Systolic blood pressure 2023-09-17 00:59:00 136 mm[Hg] [facility] Diastolic blood pressure 2023-09-17 00:59:00 80 mm[Hg] [facility] Heart rate 2023-09-17 00:59:00 62 /min [facility] Body temperature 2023-09-17 00:59:00 36.78 Fauzia [facility] Respiratory rate 2023-09-17 00:59:00 17 /min [facility] Body weight 2023-09-17 00:59:00 52.617 kg [facility] BMI 2023-09-17 00:59:00 23.43 [facility] Arterial blood by Pulse oximetry 2023-09-17 00:59:00 98 /min [facility] Systolic blood pressure 2023-09-11 13:27:00 147 mm[Hg] [facility] Diastolic blood pressure 2023-09-11 13:27:00 78 mm[Hg] [facility] Heart rate 2023-09-11 13:27:00 71 /min [facility] Body height 2023-09-11 13:27:00 149.9 cm [facility] Body weight 2023-09-11 13:27:00 53.524 kg [facility] BMI 2023-09-11 13:27:00 23.83 kg/m2 [facility] Oxygen saturation in Arterial blood by Pulse oximetry 2023-09-11 13:27:00 97 /min [facility] Systolic blood pressure 2023-09-10 14:07:00 150 mm[Hg] [facility] Diastolic blood pressure 2023-09-10 14:07:00 83 mm[Hg] [facility] Heart rate 2023-09-10 14:06:00 65 /min [facility] Body height 2023-09-10 14:06:00 149.9 cm [facility] Body weight 2023-09-10 14:06:00 53.842 [facility] BMI 2023-09-10 14:06:00 23.97 kg/m2 [facility] Oxygen saturation in Arterial blood by Pulse oximetry 2023-09-10 14:06:00 98 /min [facility] Systolic blood pressure 2023-09-10 01:22:00 132 mm[Hg] [facility] Diastolic blood pressure 2023-09-10 01:22:00 89 mm[Hg] [facility] Heart rate 2023-09-10 01:22:00 63 /min [facility] Body temperature 2023-09-10 01:22:00 36.28 Fauzia [facility] Respiratory rate 2023-09-10 01:22:00 17 /min [facility] Body height 2023-09-10 01:22:00 149.9 cm [facility] Body weight 2023-09-10 01:22:00 53.695 kg [facility] BMI 2023-09-10 01:22:00 23.91 kg/m2 [facility] Oxygen saturation in Arterial blood by Pulse oximetry 2023-09-10 01:22:00 100 /min [facility] Systolic blood pressure 2023-09-06 00:30:00 116 mm[Hg] [facility] Diastolic blood pressure 2023-09-06 00:30:00 72 mm[Hg] [facility] Heart rate 2023-09-06 00:30:00 69 /min [facility] Body temperature 2023-09-06 00:30:00 36.78 Fauzia [facility] Respiratory rate 2023-09-06 00:30:00 18 /min [facility] Body weight 2023-09-06 00:30:00 52.617 kg [facility] BMI 2023-09-06 00:30:00 23.43 kg/m2 [facility] Oxygen saturation in Arterial blood by Pulse oximetry 2023-09-06 00:30:00 99 /min [facility] Systolic blood pressure 2023-09-03 00:35:00 157 mm[Hg] [facility] Diastolic blood pressure 2023-09-03 00:35:00 92 mm[Hg] [facility] Heart rate 2023-09-03 00:35:00 64 /min [facility] Body temperature 2023-09-03 00:35:00 36.94 Fauzia [facility] Respiratory rate 2023-09-03 00:35:00 16 /min [facility] Body height 2023-09-03 00:35:00 149.9 cm [facility] Body weight 2023-09-03 00:35:00 52.164 kg [facility] BMI 2023-09-03 00:35:00 23.23 kg/m2 [facility] Oxygen saturation in Arterial blood by Pulse oximetry 2023-09-03 00:35:00 100 /min [facility] Systolic blood pressure 2023-08-26 00:04:00 108 mm[Hg] [facility] Diastolic blood pressure 2023-08-26 00:04:00 67 mm[Hg] [facility] Heart rate 2023-08-26 00:04:00 65 /min [facility] Body temperature 2023-08-26 00:04:00 36.78 Fauzia [facility] Respiratory rate 2023-08-26 00:04:00 17 /min [facility] Body height 2023-08-26 00:04:00 149.9 cm [facility] Body weight 2023-08-26 00:04:00 52.787 kg [facility] BMI 2023-08-26 00:04:00 23.50 kg/m2 [facility] Oxygen saturation in Arterial blood by Pulse oximetry 2023-08-26 00:04:00 96 /min [facility] Body weight 2023-06-19 19:24:00 54.432 kg [facility] BMI 2023-06-19 19:24:00 24.24 kg/m2 [facility] Systolic blood pressure 2023-06-18 21:19:00 119 mm[Hg] [facility] Diastolic blood pressure 2023-06-18 21:19:00 73 mm[Hg] [facility] Heart rate 2023-06-18 21:19:00 66 /min [facility] Body temperature 2023-06-18 21:19:00 37.17 Fauzia [facility] Respiratory rate 2023-06-18 21:19:00 16 /min [facility] Body height 2023-06-18 21:19:00 149.9 cm [facility] Body weight 2023-06-18 21:19:00 54.432 kg [facility] BMI 2023-06-18 21:19:00 24.24 kg/m2 [facility] Oxygen saturation in Arterial blood by Pulse oximetry 2023-06-18 21:19:00 97 /min [facility] Systolic blood pressure 2023-06-13 00:25:00 104 mm[Hg] [facility] Diastolic blood pressure 2023-06-13 00:25:00 70 mm[Hg] [facility] Heart rate 2023-06-13 00:25:00 81 /min [facility] Respiratory rate 2023-06-13 00:25:00 12 /min [facility] Oxygen saturation in Arterial blood by Pulse oximetry 2023-06-13 00:25:00 95 /min [facility] Body temperature 2023-06-12 23:11:00 36 Fauzia [facility] Body height 2023-06-12 18:16:00 149.9 cm [facility] Body weight 2023-06-12 18:16:00 54.432 kg [facility] BMI 2023-06-12 18:16:00 24.24 kg/m2 [facility] Systolic blood pressure 2023-06-12 18:16:00 111 mm[Hg] [facility] Diastolic blood pressure 2023-06-12 18:16:00 70 mm[Hg] [facility] Heart rate 2023-06-12 18:16:00 88 /min [facility] 2023-06-12 18:16:00 36.89 Fauzia [facility] Respiratory rate 2023-06-12 18:16:00 18 /min [facility] Body height 2023-06-12 18:16:00 149.9 cm [facility] Body weight 2023-06-12 18:16:00 54.432 kg [facility] BMI 2023-06-12 18:16:00 24.24 kg/m2 [facility] Oxygen saturation in Arterial blood by Pulse oximetry 2023-06-12 18:16:00 98 /min [facility] Systolic blood pressure 2023-06-05 03:07:00 165 mm[Hg] [facility] Diastolic blood pressure 2023-06-05 03:07:00 83 mm[Hg] [facility] Heart rate 2023-06-05 03:07:00 86 /min [facility] Body temperature 2023-06-05 03:07:00 37.72 Fauzia [facility] Respiratory rate 2023-06-05 03:07:00 18 /min [facility] Oxygen saturation in Arterial blood by Pulse oximetry 2023-06-05 03:07:00 97 /min [facility] Body height 2023-06-04 22:16:00 149.9 cm [facility] Body weight 2023-06-04 22:16:00 54.432 kg [facility] BMI 2023-06-04 22:16:00 24.24 kg/m2 [facility] Systolic blood pressure 2023-06-03 21:08:00 156 mm[Hg] [facility] Diastolic blood pressure 2023-06-03 21:08:00 82 mm[Hg] [facility] Heart rate 2023-06-03 21:08:00 88 [facility] Body temperature 2023-06-03 21:08:00 36.72 Fauzia [facility] Respiratory rate 2023-06-03 21:08:00 18 /min [facility] Oxygen saturation in Arterial blood by Pulse oximetry 2023-06-03 21:08:00 96 /min [facility] Body weight 2023-06-03 09:22:00 55.974 kg [facility] BMI 2023-06-03 09:22:00 24.92 kg/m2 [facility] Body height 2023-06-02 16:13:00 149.9 cm [facility] Systolic blood pressure 2023-06-02 18:50:00 112 mm[Hg] [facility] Diastolic blood pressure 2023-06-02 18:50:00 61 mm[Hg] [facility] Heart rate 2023-06-02 18:50:00 80 /min [facility] Respiratory rate 2023-06-02 18:50:00 16 /min [facility] Oxygen saturation in Arterial blood by Pulse oximetry 2023-06-02 18:50:00 95 /min [facility] Body temperature 2023-06-02 18:19:00 38 Fauzia [facility] Body height 2023-06-02 16:13:00 149.9 cm [facility] Body weight 2023-06-02 16:13:00 56.246 kg [facility] BMI 2023-06-02 16:13:00 24.92 kg/m2 [facility] BP Diastolic 2023-05-02 00:00:00 72 mm[Hg] [facility] BP Systolic 2023-05-02 00:00:00 117 mm[Hg] [facility] BMI (Body Mass Index) 2023-05-02 00:00:00 25.2 kg/m2 [facility] Height 2023-05-02 00:00:00 59 [in_i] [facility] Body Weight 2023-05-02 00:00:00 125 [lb_av] [facility] Systolic 2023-01-23 00:00:00 129 mm[Hg] [facility] BMI (Body Mass Index) 2023-01-23 00:00:00 24.9 kg/m2 [facility] Height 2023-01-23 00:00:00 59 [in_i] [facility] BP Diastolic 2023-01-23 00:00:00 78 mm[Hg] [facility] Body Weight 2023-01-23 00:00:00 123.4 [lb_av] [facility] BP Diastolic 2022-05-30 00:00:00 81 mm[Hg] [facility] Height 2022-05-30 00:00:00 59 [in_i] [facility] BMI (Body Mass Index) 2022-05-30 00:00:00 23.7 kg/m2 [facility] BP Systolic 2022-05-30 00:00:00 130 mm[Hg] [facility] Body Weight 2022-05-30 00:00:00 117.4 [lb_av] [facility] BP Diastolic 2022-04-25 00:00:00 79 mm[Hg] [facility] Height 2022-04-25 00:00:00 59 [in_i] [facility] BMI (Body Mass Index) 2022-04-25 00:00:00 23.7 kg/m2 [facility] BP Systolic 2022-04-25 00:00:00 124 mm[Hg] [facility] Body Weight 2022-04-25 00:00:00 117.4 [lb_av] [facility] BP Diastolic 2022-03-28 00:00:00 83 mm[Hg] [facility] Height 2022-03-28 00:00:00 59 [in_i] [facility] BMI (Body Mass Index) 2022-03-28 00:00:00 23.2 kg/m2 [facility] BP Systolic 2022-03-28 00:00:00 126 mm[Hg] [facility] Body Weight 2022-03-28 00:00:00 115 [lb_av] [facility] BP Diastolic 2021-10-11 00:00:00 60 mm[Hg] [facility] Height 2021-10-11 00:00:00 59 [in_i] [facility] BMI (Body Mass Index) 2021-10-11 00:00:00 26.3 kg/m2 [facility] BP Systolic 2021-10-11 00:00:00 89 mm[Hg] [facility] Body Weight 2021-10-11 00:00:00 130 [lb_av] [facility] Systolic blood pressure 2021-09-27 14:48:37 157 mm[Hg] [facility] Diastolic blood pressure 2021-09-27 14:48:37 88 mm[Hg] [facility] Heart rate 2021-09-27 14:48:37 87 /min [facility] Respiratory rate 2021-09-27 14:48:37 18 /min [facility] Oxygen saturation in Arterial blood by Pulse oximetry 2021-09-27 14:48:37 98 /min [facility] Body temperature 2021-09-27 04:25:10 36.72 Fauzia [facility] Body height 2021-09-27 03:49:00 149.9 cm [facility] Body weight 2021-09-27 03:49:00 54.432 kg [facility] BMI 2021-09-27 03:49:00 24.24 kg/m2 [facility] BP Diastolic 2021-06-13 00:00:00 79 mm[Hg] [facility] Height 2021-06-13 00:00:00 59 [in_i] [facility] BMI (Body Mass Index) 2021-06-13 00:00:00 25.6 kg[facility] Systolic 2021-06-13 00:00:00 141 mm[Hg] [facility] Body Weight 2021-06-13 00:00:00 126.8 [lb_av] [facility] BP Diastolic 2021-03-22 00:00:00 82 mm[Hg] [facility] Height 2021-03-22 00:00:00 59 [in_i] [facility] BMI (Body Mass Index) 2021-03-22 00:00:00 24 kg[facility]m2 [facility] BP Systolic 2021-03-22 00:00:00 120 mm[Hg] [facility] Body Weight 2021-03-22 00:00:00 119 [lb_av] [facility] Systolic blood pressure 2023-09-10 14:07:00 150 mm[Hg] [facility] Diastolic blood pressure 2023-09-10 14:07:00 83 mm[Hg] [facility] Heart rate 2023-09-10 14:06:00 65 /min [facility] Body height 2023-09-10 14:06:00 149.9 cm [facility] Body weight 2023-09-10 14:06:00 53.842 kg [facility] BMI 2023-09-10 14:06:00 23.97 kg/m2 [facility] Oxygen saturation in Arterial blood by Pulse oximetry 2023-09-10 14:06:00 98 /min [facility] Body temperature 2023-09-10 01:22:00 36.28 Fauzia [facility] Respiratory rate 2023-09-10 01:22:00 17 /min [facility] Procedures Procedure Date / Time Performed Performing Clinician Source POCT URINALYSIS 2024-01-09 21:46[facility] IGG 2024-01-09 21:02:00 Lynsey Dangelo [facility] TRIIODOTHYRONINE 2024-01-09 21:02:00 Martha Dangelo [facility] COMP. METABOLIC PANEL ([id number]) 2024-01-09 21:02:00 Martha Dangelo [facility] ANTI-NUCLEAR ANTIBODY SCREEN 2024-01-09 21:02:00 Martha Dangelo [facility] HEPATITIS B SURFACE ANTIBODY 2024-01-09 21:02:00 Martha Dangelo [facility] HEPATITIS B SURFACE ANTIGEN 2024-01-09 21:02:00 Martha Dangelo [facility] HCV ANTIBODY 2024-01-09 21:02:00 Martha Dangelo [facility] HAV ANTIBODY (IGG AND IGM) 2024-01-09 21:02:00 Martha Dangelo [facility] ANTI-NUCLEAR ANTIBODY TITER 2024-01-09 21:02:00 Martha Dangelo [facility] ANTI-NUCLEAR ANTIBODY-PATHOLOGIST INTERPRETATION 2024-01-09 21:02:00 Martha Dangelo [facility] RABIES VACCINE, IM 2023-09-17 01:00:58 Doctor Un assigned, Melia [facility] MICROALBUMIN URINE 2023-09-10 14:57:00 [facility] HORMONE 2023-09-10 14:55:00 Martha Dangelo [facility] COMP. METABOLIC PANEL (64163) 2023-09-10 14:55:00 Martha Dangelo [facility] LIPID PANEL (82076)(TOTAL CHOLESTEROL, TRIGLYCERIDES, HDL) 2023-09-10 14:55:00 Martha Dangelo [facility] CBC WITH DIFF 2023-09-10 14:55:00 Martha Dangelo [facility] COMP. METABOLIC PANEL (90196) 2023-09-10 14:55:00 Martha Dangelo [facility] GLYCOSYLATED HEMOGLOBIN (A1C) 2023-09-10 14:55:00 Martha Dangelo [facility] LIPID PANEL (80059)(TOTAL CHOLESTEROL, TRIGLYCERIDES, HDL) 2023-09-10 14:55:00 Martha Dangelo [facility] THYROID STIMULATING HORMONE 2023-09-10 14:55:00 Martha Dangelo [facility] FREE T4 2023-09-10 14:55:00 Martha Dangelo [facility] RABIES VACCINE, IM 2023-09-10 01:25:48 Doctor Un assigned, Melia [facility] RABIES VACCINE, 2023-09-10 01:25:48 Doctor Un assigned, Melia [facility] RABIES VACCINE, IM 2023-09-06 00:50:[address] [facility] RABIES VACCINE, IM 2023-09-06 00:50:[address] [facility] XR RIBS 3 VW LEFT 2023-08-26 01:03:20 See Min [facility] XR RIBS 3 VW LEFT 2023-08-26 01:03:20 See Min [facility] XR HAND 3+ VW RIGHT 2023-08-26 01:03:00 Sade Min [facility] XR HAND 3+ VW RIGHT 2023-08-26 01:03:00 Sade Min [facility] CT ABDOMEN PELVIS WO CONTRAST 2023-06-21 20:34:50 Mikayla Florez [facility] REFERRAL- REQUEST/RESPONSE 2023-06-18 21:13:52 D octor Unassigned, Melia [facility] REFERRAL- REQUEST/RESPONSE 2023-06-18 20:59:23 D octor Unassigned, Melia [facility] FL TIME OR (NON-REPORTABLE) 2023-06-12 23:10:00 Rosey [facility] URINE CULTURE 2023-06-12 22:38:00 [facility] 2023-06-12 21:52:00 [facility] URETEROSCOPIC STONE MANIPULATION 2023-06-12 21:35:00 Rosey [...] 2023-06-12 21:35:00 Rosey [facility] [address] - [place] CYSTO/URETERO W/LITHOTRIPSY &INDWELL STENT INSRT 2023-06-12 21:35:00 Rosey [facility] [address] - [place]ST[place] W/URETEROSCOPY W/RMVL/MANJ STONES 2023-06-12 21:35:00 Rosey [facility] [address] - [place]ST[place] W/URETEROSCOPY W/LITHOTRIPSY 2023-06-12 21:35:00 Rosey [facility] [address] - [place]ST[place] W/SIMPLE REMOVAL STONE & STENT 2023-06-12 21:35:00 Rosey [facility] [address] - [place] W/COMPLEX REMOVAL STONE & STENT 2023-06-12 21:35:00 Rosey [facility] [address] - [place] CYST[place] W/INSERT URETERAL STENT 2023-06-12 21:35:00 Rosey [facility] [address] - CHG UROGRAPHY RETROGRADE WITH/WO KUB 2023-06-12 21:35:00 Rafael [facility] POCT GLUCOSE (AUTOMATED) 2023-06-12 18:33:00 [facility] POCT GLUCOSE (AUTOMATED) 2023-06-12 18:33:00 [facility] POCT GLUCOSE (AUTOMATED) 2023-06-12 18:33:00 [facility] URINALYSIS 2023-06-05 01:27:[address] [facility] COMP. METABOLIC PANEL (59091) 2023-06-05 00:42:00 [facility] CBC WITH DIFF 2023-06-05 00:42:00 [facility] CONSENT/REFUSAL FOR DIAGNOSIS AND TREATMENT 2023-06-04 22:10:48 Doctor Unassigned, Melia [facility] POCT GLUCOSE (AUTOMATED) 2023-06-03 17:25:00 Ra damon Sanchez [facility] POCT GLUCOSE (AUTOMATED) 2023-06-03 17:25:00 Ra Daniel [facility] POCT GLUCOSE (AUTOMATED) 2023-06-03 12:57:00 Ra damon Sanchez [facility] POCT GLUCOSE (AUTOMATED) 2023-06-03 12:57:00 Ra damon Sanchez [facility] PHOSPHORUS 2023-06-03 09:29:00 [facility] MAGNESIUM 2023-06-03 09:29:00 Calvin Nova [facility] BASIC METABOLIC PANEL (NA, K, CL, CO2, GLUCOSE, BUN, CREATININE, CA) 2023-06-03 09:29:00 Calvin Nova [facility] PHOSPHORUS 2023-06-03 09:29:00 [facility] MAGNESIUM 2023-06-03 09:29:00 Calvin Nova [facility] BASIC METABOLIC PANEL (NA, K, CL, CO2, GLUCOSE, BUN, CREATININE, CA) 2023-06-03 09:29:00 Avtar [facility] CBC WITH DIFF 2023-06-03 08:12:00 Avtar [facility] CBC WITH DIFF 2023-06-03 08:12:00 Avtar [facility] POCT GLUCOSE (AUTOMATED) 2023-06-03 08:11:00 Ra damon Sanchez [facility] POCT GLUCOSE (AUTOMATED) 2023-06-03 08:11:00 Ra damon Sanchez [facility] POCT GLUCOSE (AUTOMATED) 2023-06-03 05:03:00 Ra Daniel [facility] POCT GLUCOSE (AUTOMATED) 2023-06-03 05:03:00 Ra Daniel [facility] POCT GLUCOSE (AUTOMATED) 2023-06-03 01:49:00 Ra Daniel [facility] POCT GLUCOSE (AUTOMATED) 2023-06-03 01:49:00 Ra Daniel [facility] POCT GLUCOSE (AUTOMATED) 2023-06-02 21:36:00 Ra Daniel [facility] POCT GLUCOSE (AUTOMATED) 2023-06-02 21:36:00 Ra damon Sanchez [facility] [place] TIME OR (NON-REPORTABLE) 2023-06-02 18:10:56 Margaret Tena [facility] [place] TIME OR (NON-REPORTABLE) 2023-06-02 18:10:56 Margaret Tena [facility] URINE CULTURE 2023-06-02 18:02:00 [facility] URINE CULTURE 2023-06-02 18:02:00 Carlos Gomes [facility] CYSTOSCOPY WITH INSERTION STENT URETER 2023-06-02 17:18:00 Rosey [facility] RETROGRADE PYELOGRAM 2023-06-02 17:18:00 Magdiel Gomes [facility] CYSTOSCOPY WITH INSERTION STENT URETER 2023-06-02 17:18:00 Rosey [facility] RETROGRADE PYELOGRAM 2023-06-02 17:18:00 Magdiel Gomes [facility] URINALYSIS 2023-06-02 16:11:00 Margaret Tena [facility] URINALYSIS 2023-06-02 16:11:00 Margaret Tena [facility] PHOSPHORUS 2023-06-02 09:52:00 Calvin Nova [facility] MAGNESIUM 2023-06-02 09:52:00 Avtar [facility] THYROID STIMULATING HORMONE 2023-06-02 09:52:00 Avtar [facility] BASIC METABOLIC PANEL (NA, K, CL, CO2, GLUCOSE, BUN, CREATININE, CA) 2023-06-02 09:52:00 [facility] LIPID PANEL (58046)(TOTAL CHOLESTEROL, TRIGLYCERIDES, HDL) 2023-06-02 09:52:00 [facility] CBC WITH DIFF 2023-06-02 09:52:00 Avtar [facility] GLYCOSYLATED HEMOGLOBIN (A1C) 2023-06-02 09:52:00 Avtar [facility] PHOSPHORUS 2023-06-02 09:52:00 Calvin Nova [facility] MAGNESIUM 2023-06-02 09:52:00 Avtar [facility] THYROID STIMULATING HORMONE 2023-06-02 09:52:00 [facility] BASIC METABOLIC PANEL (NA, K, CL, CO2, GLUCOSE, BUN, CREATININE, CA) 2023-06-02 09:52:00 [facility] LIPID PANEL (04591)(TOTAL CHOLESTEROL, TRIGLYCERIDES, HDL) 2023-06-02 09:52:00 [facility] CBC WITH DIFF 2023-06-02 09:52:00 Avtar [facility] GLYCOSYLATED HEMOGLOBIN (A1C) 2023-06-02 09:52:00 [facility] POCT GLUCOSE (AUTOMATED) 2023-06-02 01:57:00 Calvin Nova [facility] POCT GLUCOSE (AUTOMATED) 2023-06-02 01:57:00 Calvin Nova [facility] BLOOD CULTURE SCREEN 2023-06-01 22:49:00 Ger Nova am [facility] BLOOD CULTURE SCREEN 2023-06-01 22:49:00 Ger Nova am [facility] POCT GLUCOSE(AGE >30DAYS) 2023-06-01 22:27:00 [facility] POCT GLUCOSE(AGE >30DAYS) 2023-06-01 22:27:00 [facility] POCT GLUCOSE (AUTOMATED) 2023-06-01 22:26:00 [facility] POCT GLUCOSE (AUTOMATED) 2023-06-01 22:26:00 [facility] BLOOD CULTURE SCREEN 2023-06-01 22:06:00 eGr Nova am [facility] BLOOD CULTURE SCREEN 2023-06-01 22:06:00 Ger Nova am [facility] XR CHEST 2 VW 2023-06-01 17:34:00 Rc Peng [facility] XR CHEST 2 VW 2023-06-01 17:34:00 Rc Peng [facility] CT ABDOMEN PELVIS WO CONTRAST 2023-06-01 17:23:00 Rc Peng [facility] CT ABDOMEN PELVIS WO CONTRAST 2023-06-01 17:23:00 Rc Peng [facility] LIPASE 2023-06-01 16:31:00 Rc Peng [facility] COMP. METABOLIC PANEL ([id number]) 2023-06-01 16:31:00 Rc Peng [facility] CBC WITH DIFF 2023-06-01 16:31:00 Rc Peng [facility] URINALYSIS 2023-06-01 16:31:00 Rc Peng [facility] URINE CULTURE 2023-06-01 16:31:00 Rc Peng [facility] EXTRA TUBE URINE CULTURE 2023-06-01 16:31:00 Raf Peng [facility] LIPASE 2023-06-01 16:31:00 Rc Peng [facility] COMP. METABOLIC PANEL ([id number]) 2023-06-01 16:31:00 [facility]FF 2023-06-01 16:31:00 Rc Peng [facility] URINALYSIS 2023-06-01 16:31:00 Rc Peng [facility] URINE CULTURE 2023-06-01 16:31:00 Domenic Rcpebbles [facility] EXTRA TUBE URINE CULTURE 2023-06-01 16:31:00 Raf Peng [facility] CONSENT/REFUSAL FOR DIAGNOSIS AND TREATMENT 2023-06-01 16:13:14 Doctor Unassigned, Melia [facility] CONSENT/REFUSAL FOR DIAGNOSIS AND TREATMENT 2023-06-01 16:13:14 Doctor Unassigned, Melia [facility] MAMMO, screening, digital, bilateral 2023-01-23 00:00:00 [facility] MAMMO, screening, tomosynthesis, bilateral, w/ CAD 2022-05-30 00:00:00 [facility] MEDICATION CORRESPONDENCE 2021-10-26 05:01:00 Do ctor Unassigned, Melia [facility] EKG-12 LEAD 2021-09-27 11:30:18 Jayden Knight [facility] ETHANOL 2021-09-27 09:11:00 Jayden Knight [facility] CBC WITH DIFF 2021-09-27 06:19:00 Jayden Knight [facility] COVID-19 (ID NOW RAPID TESTING) 2021-09-27 06:19:00 Jayden Knight [facility] CT ABDOMEN PELVIS W CONTRAST 2021-09-27 05:55:00 Jayden Knight [facility] CREATINE KINASE 2021-09-27 04:36:00 Jayden Knight [facility] TROPONIN I 2021-09-27 04:36:00 Jayden Knight [facility] THYROID STIMULATING HORMONE 2021-09-27 04:36:00 Jayden Knight [facility] COMP. METABOLIC PANEL ([id number]) 2021-09-27 04:36:00 Jayden Knight [facility] SALICYLATE 2021-09-27 04:36:00 Jayden Knight [facility] ETHANOL 2021-09-27 04:36:00 Jayden Knight [facility] XR CHEST 1 VW 2021-09-27 04:25:00 [facility] URINALYSIS 2021-09-27 04:18:00 Jayden Knight [facility] URINE DRUG (IMMUNOASSAY) - COMPREHENSIVE DRUG SCREEN W/O REFLEX 2021-09-27 04:18:00 Jayden Knight [facility] ASSIGNMENT OF BENEFITS 2021-09-27 03:30:08 Docto r Unassigned, Melia [facility] CONSENT/REFUSAL FOR DIAGNOSIS AND TREATMENT 2021-09-27 03:29:46 Doctor Unassigned, Melia [facility] X-RAY OF FOOT 3+ VIEW 2021-06-13 00:00:00 [facility] COLONOSCOPY (ENDO) 2020-12-06 13:34:50 Bob Min [facility] CT LUNG CANCER SCREENING 2020-12-04 20:57:13 Bob Min [facility] BI SCREENING TOMOSYNTHESIS BILATERAL 2020-12-04 20:40:46 Bob Min [facility] HCV ANTIBODY 2013-09-07 15:00:00 Glneny Arreola [facility] Hysterectomy (Total) [facility] Colon Surgery [facility] Cholecystectomy [facility] Plan of Care Planned Activity Planned Date Details Comments Source Diagnostic Test Pending 2023-01-23 00:00:00 hemoglobin A1C, fingerstick [code = hemoglobin A1C, fingerstick] [facility] Diagnostic Test Pending 2023-01-23 00:00:00 CMP, serum or plasma [code = CMP, serum or plasma] [facility] Diagnostic Test Pending 2023-01-23 00:00:00 CBC w/ auto diff [code = CBC w/ auto diff] [facility] Diagnostic Test Pending 2023-01-23 00:00:00 lipid panel, serum [code = lipid panel, serum] [facility] Diagnostic Test Pending 2023-01-23 00:00:00 vitamin D, 25-hydroxy, total, serum [code = vitamin D, 25-hydroxy, total, serum] [facility] Encounters Start Date/Time End Date/Time Encounter Type Admission Type Attending [facility] Care Facility Care Department Encounter ID Source 2023-06-19 13:43:36 Outpatient R ANDRES JAMILAJEREMY [facility] SUU [id number] [facility] 2023-05-27 12:30:00 Inpatient EM Cristian Laguna [facility] [id number] 2021-01-15 20:17:20 Emergency [facility] [id number] [facility] 2021-01-15 20:08:02 Emergency [facility] [id number] [facility] 2024-01-14 00:00:00 2024-02-14 18:19:11 Patient Secure Msg Doctor Unassigned, Melia Doctor Unassigned, Melia [facility] 1.840.114 350.1.13.10 4.2.7.2.686 [id number] [facility] 2024-01-15 00:00:00 2024-01-16 07:33:17 Martha Riley [facility] 1.2.840.114 350.1.13.10 4.2.7.2.686 [id number] [facility] 2024-01-14 00:00:00 2024-01-14 10:27:31 Patient Secure Msg Doctor Unassigned, Melia Doctor Unassigned, Melia [facility] 1..840.114 350.1.13.10 4.2.7.2.686 [id number] [facility] 2024-01-13 00:00:00 2024-01-13 16:29:34 Patient Secure Msg Doctor Unassigned, Melia Doctor Unassigned, Melia [facility] 1.2.840.114 350.1.13.10 4.2.7.2.686 [id number] [facility] 2024-01-09 16:30:00 2024-01-09 17:15:49 Outpatient R MARTHA DANGELO [facility] [id number] [facility] 2024-01-09 16:30:00 2024-01-09 17:15:49 Applique Cutter Visit Lab, Ang - Db Martha Dangelo, Ang - Db [facility] BU[facility] 1.2.840.114 350.1.13.10 4.2.7.2.686 [id number] [facility] 2024-01-09 15:00:00 2024-01-09 15:45:37 Office Visit Martha [facility]angel[facility] 1.2.840.114 350.1.13.10 4.2.7.2.686 [id number] [facility] 2024-01-09 00:00:00 2024-01-09 10:43:14 Telephone Keisah Beckman Leticia [facility] MED[facility] OFFICE BUILD[facility] 1.2.840.114 350.1.13.10 4.2.7.2.686 [id number] [facility] 2024-01-09 09:20:00 2024-01-09 09:20:00 Outpatient R JENNA, CIARAN [facility] [id number] [facility] 2023-12-12 08:00:00 2023-12-12 08:00:00 Outpatient R DARBY BROTHERS CRAIG [facility] [id number] [facility] 2023-12-09 00:00:00 2023-12-09 10:22:46 Donavongricelda Antolin Martha [facility] 1.2.840.114 350.1.13.10 4.2.7.2.686 [id number] [facility] 2023-11-20 08:00:00 2023-11-20 08:00:00 Outpatient CLARIBEL SARABIA PAMELA [facility] [id number] [facility] 2023-10-16 08:00:00 2023-10-16 08:00:00 Outpatient CLARIBEL SARABIA CLARIBEL [facility] [id number] [facility] 2023-09-09 00:00:00 2023-10-11 18:20:52 Patient Secure Msg Doctor Unassigned, Melia [facility] N[facility] BUILD[facility] 1.2.840.114 350.1.13.10 4.2.7.2.686 [id number] [facility] 2023-09-26 07:30:00 2023-09-26 07:30:00 Outpatient SAMUEL BLOOD [facility] [id number] [facility] 2023-09-06 00:00:00 2023-09-25 08:14:14 Telephone Madeline Simons [facility] MED[facility] OFF[facility] BUILDING 1.2.840.114 350.1.13.10 4.2.7.2.686 [id number] [facility] 2023-09-16 19:40:00 2023-09-16 20:06:27 Outpatient R MADELINE SIMONS [facility] [id number] [facility] 2023-09-16 19:40:00 2023-09-16 20:00:00 Nurse Visit Nurse, [facility] Unknown, Attending [facility] 1.2.840.114 350.1.13.10 4.2.7.2.686 [id number] [facility] 2023-09-16 00:00:00 2023-09-16 10:28:59 Telephone Yousuf Yuniel Lisette [facility] 1.2.840.114 350.1.13.10 4.2.7.2.686 [id number] [facility] 2023-09-15 18:00:00 2023-09-15 18:00:00 Outpatient R UNKNOWN, CIARAN [facility] [id number] [facility] 2023-09-15 00:00:00 2023-09-15 11:50:22 Telephone Antolin Martha [facility] MED[facility] OFF[facility] BUILDING 1.2.840.114 350.1.13.10 4.2.7.2.686 [id number] [facility] 2023-09-11 09:16:29 2023-09-11 23:59:00 Hospital Encounter Antolin Martha [facility] MEDICAL OFFICE BUILDING 1.2.840.114 350.1.13.10 4.2.7.2.686 [id number] [facility] 2023-09-11 08:15:00 2023-09-11 09:16:34 Outpatient R DARBY BROTHERS CRAIG [facility] [id number] [facility] 2023-09-11 08:15:00 2023-09-11 09:16:34 Office Visit Darby Brothers [facility] MEDICAL OFFICE BUILDING 1.2.840.114 350.1.13.10 4.2.7.2.686 [id number] [facility] 2023-09-10 09:53:16 2023-09-10 23:59:00 Outpatient R MARTHA DANGELO [facility] [id number] [facility] 2023-09-10 00:00:00 2023-09-10 17:31:14 Telephone Martha Dangelo [facility] 1.2.840.114 350.1.13.10 4.2.7.2.686 [id number] [facility] 2023-09-10 10:00:00 2023-09-10 10:00:00 Applique Cutter Visit Martha Dangelo, Abel - Oren 1.2.840.1 90074.1.1 3.104.2.7 .3.399536 .8 [id number] [facility] 2023-09-10 09:00:00 2023-09-10 09:47:49 Office Visit Martha Dangelo 1.2.840.1 [id number] 3.104.2.7 .3.215064 .8 [id number] [facility] 2023-09-09 20:30:00 2023-09-09 20:32:24 Outpatient R LUDMILA BEVERLY [facility] [id number] [facility] 2023-09-09 20:30:00 2023-09-09 20:32:24 Nurse Visit Ludmila Beverly [facility] 1.2.840.1 [id number] 3.104.2.7 .3.593557 .8 [id number] [facility] 2023-09-09 00:00:00 2023-09-09 00:00:00 Travel 1.2.840.1 62223.1.1 3.104.2.7 .3.118652 .8 1.2.840.114 350.1.13.10 4.2.7.3.698 [id number] [facility] 2023-09-08 18:00:00 2023-09-08 18:00:00 Outpatient R UNKNOWN, ATTENDING [facility] [id number] [facility] 2023-09-06 00:00:00 2023-09-06 18:29:42 Telephone Tae Baldwin 1.2.840.1 57711.1.1 3.104.2.7 .3.272660 .8 [id number] [facility] 2023-08-01 00:00:00 2023-09-06 18:22:56 Patient Secure Msg Yuniel Thurman 1.2.840.1 70300.1.1 3.104.2.7 .3.760177 .8 [id number] [facility] 2023-09-05 19:20:00 2023-09-05 19:31:50 Outpatient R MADELINE SIMONS [facility] [id number] [facility] 2023-09-05 19:20:00 2023-09-05 19:31:50 Urgent Care Unknown, Attending Madeline Simons 1.2.840.1 13241.1.1 3.104.2.7 .3.753789 .8 [id number] [facility] 2023-09-04 18:00:00 2023-09-04 18:00:00 Outpatient R UNKNOWN, ATTENDING [facility] [id number] [facility] 2023-09-04 00:00:00 2023-09-04 00:00:00 Travel 1.2.840.1 [id number] 3.104.2.7 .3.087900 .8 1.2.840.114 350.1.13.10 4.2.7.3.698 [id number] [facility] 2023-09-03 00:00:00 2023-09-03 13:59:38 Telephone [facility] 1.2.840.1 08771.1.1 3.104.2.7 .3.405220 .8 [id number] [facility] 2023-09-02 19:31:00 2023-09-02 20:45:00 Emergency X JOSE GLEASON [facility] ERT [id number] [facility] 2023-09-02 19:31:00 2023-09-02 20:45:00 Emergency Jose Gleason 1.2.840.1 04366.1.1 3.104.2.7 .3.545005 .8 [id number] [facility] 2023-09-02 00:00:00 2023-09-02 00:00:00 Travel 1.2.840.1 36257.1.1 3.104.2.7 .3.103581 .8 1.2.840.114 350.1.13.10 4.2.7.3.698 [id number] [facility] 2023-08-29 00:00:00 2023-08-29 15:49:37 Telephone See Min 1.2.840.1 05952.1.1 3.104.2.7 .3.765489 .8 [id number] [facility] 2023-08-25 19:45:19 2023-08-25 23:59:00 Hospital Encounter See Min 1.2.840.1 43062.1.1 3.104.2.7 .3.850798 .8 [id number] [facility] 2023-08-25 19:45:18 2023-08-25 23:59:00 Hospital Encounter See Min 1.2.840.1 67307.1.1 3.104.2.7 .3.541106 .8 [id number] [facility] 2023-08-25 18:20:00 2023-08-25 19:57:17 Outpatient R SEE MIN [facility] [id number] [facility] 2023-08-25 18:20:00 2023-08-25 19:57:17 Urgent Care Unknown, Attending See Min 1.2.840.1 32004.1.1 3.104.2.7 .3.686649 .8 [id number] [facility] 2023-08-25 00:00:00 2023-08-25 00:00:00 Travel 1.2.840.1 26234.1.1 3.104.2.7 .3.458170 .8 1.2.840.114 350.1.13.10 4.2.7.3.698 084.8 [id number] [facility] 2023-08-09 16:59:00 2023-08-09 20:10:00 [facility] [id number] 08 [facility] 2023-08-05 18:46:00 2023-08-05 19:35:00 Emergency EM Parker Benitez [facility] PERS [id number] 27 [facility] 2023-08-04 18:49:00 2023-08-04 22:15:00 Emergency EM EDDOC, GENERIC HCACL AERS [id number] [facility] 2023-07-31 00:00:00 2023-08-01 16:16:48 Telephone Yuniel Thurman 1.2.840.1 45992.1.1 3.104.2.7 .3.639006 .8 [id number] [facility] 2023-06-19 00:00:00 2023-07-26 18:13:47 Patient Secure Msg Doctor Unassigned, Melia 1.2.840.1 73243.1.1 3.104.2.7 .3.197217 .8 [id number] [facility] 2023-07-14 15:00:00 2023-07-14 15:00:00 Outpatient R CARLOS GOMES [facility] [id number] [facility] 2023-06-11 00:00:00 2023-07-10 13:55:42 Patient Secure Msg Carlos Gomes 1.2.840.1 00968.1.1 3.104.2.7 .3.037613 .8 [id number] [facility] 2023-07-08 13:30:00 2023-07-08 13:30:00 Outpatient MIKAYLA MARIA [facility] [id number] [facility] 2023-07-07 00:00:00 2023-07-07 13:05:16 Telephone Mikayla Florez 1.2.840.1 50131.1.1 3.104.2.7 .3.207904 .8 [id number] [facility] 2023-06-13 00:00:00 2023-06-29 11:19:28 Telephone Carlos Gomes 1.2.840.1 05761.1.1 3.104.2.7 .3.409618 .8 [id number] [facility] 2023-06-25 00:00:00 2023-06-26 11:10:24 Telephone Mikayla Florez 1.2.840.1 28298.1.1 3.104.2.7 .3.350104 .8 [id number] [facility] 2023-06-21 15:01:36 2023-06-21 23:59:00 Outpatient MIKAYLA [facility]IA [facility] [id number] [facility] 2023-06-21 15:01:36 2023-06-21 23:59:00 Hospital Encounter Mikayla Florez 1.2.840.1 87033.1.1 3.104.2.7 .3.109509 .8 [id number] [facility] 2023-06-20 00:00:00 2023-06-20 15:48:13 Telephone Mikayla Florez 1.2.840.1 94019.1.1 3.104.2.7 .3.677924 .8 [id number] [facility] 2023-06-19 23:59:59 2023-06-19 23:59:59 Anesthesia Event MasonPiotrCaitlin 1.2.840.1 95683.1.1 3.104.2.7 .3.456201 .8 [id number] [facility] 2023-06-19 00:00:00 2023-06-19 16:46:54 Telephone Mikayla Florez 1.2.840.1 77179.1.1 3.104.2.7 .3.595526 .8 [id number] [facility] 2023-06-19 14:15:00 2023-06-19 15:38:41 Office Visit Yuniel Thurman 1.2.840.1 07759.1.1 3.104.2.7 .3.243311 .8 [id number] [facility] 2023-06-19 14:15:00 2023-06-19 14:15:00 Outpatient YUNIEL BANEGAS [facility] [id number] [facility] 2023-06-19 00:00:00 2023-06-19 00:00:00 Outpatient Maria Fernanda MARTINEZ VFP VFP [id number] [facility] 2023-06-19 00:00:00 2023-06-19 00:00:00 Travel 1.2.840.1 54710.1.1 3.104.2.7 .3.512978 .8 1.2.840.114 350.1.13.10 4.2.7.3.698 084.8 [id number] [facility] 2023-06-18 16:15:00 2023-06-18 16:45:00 Office Visit Mikayla Florez 1.2.840.1 96165.1.1 3.104.2.7 .3.950017 .8 [id number] [facility] 2023-06-18 16:15:00 2023-06-18 16:15:00 Outpatient MIKAYLA MARIA [facility] [id number] [facility] 2023-06-18 15:30:00 2023-06-18 15:30:00 Outpatient NEO VILLANUEVA [facility] [id number] [facility] 2023-06-18 00:00:00 2023-06-18 00:00:00 Orders Only Doctor Unassigned, Melia 1.2.840.1 84844.1.1 3.104.2.7 .3.558682 .8 [id number] [facility] 2023-06-18 00:00:00 2023-06-18 00:00:00 Orders Only Doctor Unassigned, Melia 1.2.840.1 75954.1.1 3.104.2.7 .3.817963 .8 [id number] [facility] 2023-06-18 00:00:00 2023-06-18 00:00:00 Travel 1.2.840.1 96451.1.1 3.104.2.7 .3.830864 .8 1.2.840.114 350.1.13.10 4.2.7.3.698 084.8 [id number] [facility] 2023-06-17 00:00:00 2023-06-17 15:26:53 Telephone Carlos Gomes 1.2.840.1 93071.1.1 3.104.2.7 .3.937049 .8 [id number] [facility] 2023-06-13 00:00:00 2023-06-13 18:14:25 Nurse Triage Pia Pitt 1.2.840.1 23064.1.1 3.104.2.7 .3.314006 .8 [id number] [facility] 2023-06-12 13:09:00 2023-06-12 19:49:00 Outpatient R CARLOS GOMES [facility] SUU [id number] [facility] 2023-06-12 13:09:00 2023-06-12 19:49:00 Hospital Encounter Junevanita Carlos 1.2.840.1 63110.1.1 3.104.2.7 .3.654181 .8 [id number] [facility] 2023-06-12 00:00:00 2023-06-12 18:49:16 Telephone Carlos Gomes 1.2.840.1 52314.1.1 3.104.2.7 .3.319918 .8 [id number] [facility] 2023-06-12 16:50:00 2023-06-12 18:10:00 Anesthesia Event Jenaro Padilla Demetria 1.2.840.1 68752.1.1 3.104.2.7 .3.058630 .8 [id number] [facility] 2023-06-12 13:53:00 2023-06-12 15:36:00 Surgery Carlos Gomes 1.2.840.1 77260.1.1 3.104.2.7 .3.072357 .8 [id number] [facility] 2023-06-09 00:00:00 2023-06-09 00:00:00 Telephone Carlos Gomes [facility] 1.0.114 350.1.13.10 4.2.7.2.686 [id number] [facility] 2023-06-05 00:00:00 2023-06-05 00:00:00 Patient Secure Msg Doctor Unassigned, Melia [facility] 1.840.114 350.1.13.10 4.2.7.2.686 [id number] [facility] 2023-06-04 17:18:00 2023-06-04 22:33:00 Emergency X DAJA COLON [facility] ERT [id number] [facility] 2023-06-04 17:18:00 2023-06-04 22:33:00 Emergency Mark, Serjiodebora DrummondDaja dallas [facility] ([facility]) 1.2.840.114 350.1.13.10 4.2.7.2.686 [id number] [facility] 2023-06-04 00:00:00 2023-06-04 00:00:00 Telephone Rafael [facility] 1.2.840.114 350.1.13.10 4.2.7.2.686 [id number] [facility] 2023-06-04 00:00:00 2023-06-04 00:00:00 Transition of Care Neo Farrell PLABISHOP 1.2.840.114 350.1.13.10 4.2.7.2.686 [id number] [facility] 2023-06-01 11:14:00 2023-06-03 16:45:00 Inpatient X [facility] [id number] [facility] 2023-06-01 11:14:00 2023-06-03 16:45:00 Hospital Encounter Rc Peng, Calvin Sanchez [facility] ([facility]) 1.2.840.114 350.1.13.10 4.2.7.2.686 [id number] [facility] 2023-06-02 11:45:00 2023-06-02 13:50:00 [facility] 1.2.840.114 350.1.13.10 4.2.7.2.686 [id number] [facility] 2023-06-02 00:00:00 2023-06-02 00:00:00 Telephone Rafael [facility] 1.2.840.114 350.1.13.10 4.2.7.2.686 [id number] [facility] 2023-05-30 02:52:00 2023-05-30 05:02:00 Emergency EM Edwin Mathews HCACL AERS [id number] [facility] 2023-05-22 00:00:00 2023-05-22 00:00:00 Outpatient Yerramadha_ M_HOU_MD VFP VFP [id number] [facility] 2023-05-16 00:00:00 2023-05-16 00:00:00 Outpatient Simpson_C_H OU_MD VFP VFP [id number] [facility] 2023-05-08 00:00:00 2023-05-08 00:00:00 Outpatient Simpson_C_H OU_MD VFP VFP [id number] [facility] 2023-05-02 00:00:00 2023-05-02 00:00:00 Outpatient Simpson_C_H OU_MD VFP VFP [id number] [facility] 2023-05-02 00:00:00 2023-05-02 00:00:00 Nataliya Newby MD: [facility] [address], [place] [address] , Ph. VFP [place] - [facility] - [place] - VM_MOIRA_Leyla Acosta [id number] [facility] 2023-04-11 00:00:00 2023-04-11 00:00:00 Outpatient Simpson_C_H OU_MD VFP VFP [id number] [facility] 2023-04-01 00:00:00 2023-04-01 00:00:00 Outpatient Simpson_C_H OU_MD VFP VFP [id number] [facility] 2023-03-20 07:34:00 2023-03-20 07:34:00 Outpatient Jovana Parnell HCACL FELISA [id number] [facility] 2023-03-06 00:00:00 2023-03-06 00:00:00 Outpatient Simpson_C_H OU_MD VFP VFP [id number] [facility] 2023-03-02 00:00:00 2023-03-02 00:00:00 Outpatient Simpson_C_H OU_MD VFP VFP [id number] [facility] 2023-01-29 00:00:00 2023-01-29 00:00:00 Outpatient Simpson_C_H OU_MD VFP VFP [id number] [facility] 2023-01-29 00:00:00 2023-01-29 00:00:00 Outpatient Simpson_C_H OU_MD VFP VFP [id number] [facility] 2023-01-23 00:00:00 2023-01-23 00:00:00 Outpatient Simpson_C_H OU_MD VFP VFP [id number] [facility] 2023-01-23 00:00:00 2023-01-23 00:00:00 Jovana Weber MD: [address], [address], [facility] [place] [address] , Ph. VFP [place] - [facility] - [place] - VM_HOU_N. Benja (WAG) [id number] [facility] 2023-01-20 00:00:00 2023-01-20 00:00:00 Outpatient Simpson_C_H OU_MD VFP VFP [id number] [facility] 2022-12-25 00:00:00 2022-12-25 00:00:00 Outpatient Simpson_C_H OU_MD VFP VFP [id number] [facility] 2022-12-25 00:00:00 2022-12-25 00:00:00 Outpatient Simpson_C_H OU_MD VFP VFP [id number] [facility] 2022-11-25 00:00:00 2022-11-25 00:00:00 Outpatient Simpson_C_H OU_MD VFP VFP [id number] [facility] 2022-11-08 00:00:00 2022-11-08 00:00:00 Outpatient Simpson_C_H OU_MD VFP VFP [id number] [facility] 2022-11-08 00:00:00 2022-11-08 00:00:00 Outpatient Simpson_C_H OU_MD VFP VFP [id number] [facility] 2022-10-04 00:00:00 2022-10-04 00:00:00 Outpatient Simpson_C_H OU_MD VFP VFP [id number] [facility] 2022-10-04 00:00:00 2022-10-04 00:00:00 Outpatient Simpson_C_H OU_MD VFP VFP [id number] [facility] 2022-10-04 00:00:00 2022-10-04 00:00:00 Outpatient Simpson_C_H OU_MD VFP VFP [id number] [facility] 2022-10-04 00:00:00 2022-10-04 00:00:00 Outpatient Simpson_C_H OU_MD VFP VFP [id number] [facility] 2022-10-04 00:00:00 2022-10-04 00:00:00 Outpatient Simpson_C_H OU_MD VFP VFP [id number] [facility] 2022-10-04 00:00:00 2022-10-04 00:00:00 Outpatient Simpson_C_H OU_MD VFP VFP [id number] [facility] 2022-10-04 00:00:00 2022-10-04 00:00:00 Outpatient Simpson_C_H OU_MD VFP VFP [id number] [facility] 2022-10-04 00:00:00 2022-10-04 00:00:00 Outpatient Simpson_C_H OU_MD VFP VFP [id number] [facility] 2022-08-30 00:00:00 2022-08-30 00:00:00 Outpatient Simpson_C VFP VFP [id number] [facility] 2022-08-30 00:00:00 2022-08-30 00:00:00 Outpatient Simpson_C_H OU_MD VFP VFP [id number] [facility] 2022-08-29 00:00:00 2022-08-29 00:00:00 Outpatient Simpson_C VFP VFP [id number] [facility] 2022-08-23 00:00:00 2022-08-23 00:00:00 Outpatient Simpson_C VFP VFP [id number] [facility] 2022-08-07 00:00:00 2022-08-07 00:00:00 Outpatient Simpson_C VFP VFP [id number] [facility] 2022-08-06 00:00:00 2022-08-06 00:00:00 Outpatient Simpson_C VFP VFP [id number] [facility] 2022-07-29 00:00:00 2022-07-29 00:00:00 Outpatient Simpson_C VFP VFP [id number] [facility] 2022-07-29 00:00:00 2022-07-29 00:00:00 Outpatient Simpson_C VFP VFP [id number] [facility] 2022-07-12 00:00:00 2022-07-12 00:00:00 Outpatient Simpson_C VFP VFP [id number] [facility] 2022-06-11 00:00:00 2022-06-11 00:00:00 Outpatient Simpson_C VFP VFP [id number] [facility] 2022-06-10 00:00:00 2022-06-10 00:00:00 Outpatient Simpson_C VFP VFP [id number] [facility] 2022-06-07 00:00:00 2022-06-07 00:00:00 Outpatient Simpson_C VFP VFP [id number] [facility] 2022-05-30 00:00:00 2022-05-30 00:00:00 Outpatient Simpson_C VFP VFP [id number] [facility] 2022-05-30 00:00:00 2022-05-30 00:00:00 Jenaro Ying, RADIO OPERATOR GROUND: [address], [address], [facility] [place] [address] , Ph. VFP [place] - [facility] - [place] - SHANEL Yousif ([facility] [id number] [facility] 2022-05-14 00:00:00 2022-05-14 00:00:00 Outpatient Simpson_C VFP VFP [id number] [facility] 2022-05-14 00:00:00 2022-05-14 00:00:00 Outpatient Simpson_C VFP VFP [id number] [facility] 2022-05-03 00:00:00 2022-05-03 00:00:00 Outpatient Simpson_C VFP VFP [id number] [facility] 2022-04-25 00:00:00 2022-04-25 00:00:00 Outpatient Simpson_C VFP VFP [id number] [facility] 2022-04-25 00:00:00 2022-04-25 00:00:00 Jenaro Ying, RADIO OPERATOR GROUND: [address], [address], [place] [place] [address] , Ph. VFP [place] - [facility] - [place] - TRISTAN_ASIF Yousif ([facility]) [id number] [facility] 2022-04-23 00:00:00 2022-04-23 00:00:00 Outpatient Simpson_C VFP VFP [id number] [facility] 2022-04-22 00:00:00 2022-04-22 00:00:00 Outpatient Simpson_C VFP VFP [id number] [facility] 2022-04-04 00:00:00 2022-04-04 00:00:00 Outpatient Simpson_C VFP VFP [id number] [facility] 2022-04-04 00:00:00 2022-04-04 00:00:00 Jenaro Ying, RADIO OPERATOR GROUND: [address], [address], [facility] [place] [address] , Ph. VFP [facility] - [place] - VM_ASIF Yousif ([facility]) [id number] [facility] 2022-03-30 00:00:00 2022-03-30 00:00:00 Outpatient Simpson_C VFP VFP [id number] [facility] 2022-03-28 00:00:00 2022-03-28 00:00:00 Outpatient Simpson_C VFP VFP [id number] [facility] 2022-03-28 00:00:00 2022-03-28 00:00:00 Jenaro Ying, RADIO OPERATOR GROUND: [address], [facility] [address], [place] [place] [address] , Ph. VFP [facility] - [place] - TRISTAN_ASIF Yousif ([facility]) [id number] [facility] 2021-11-28 00:00:00 2021-11-28 00:00:00 Outpatient Simpson_C VFP VFP [id number] [facility] 2021-11-16 00:00:00 2021-11-16 00:00:00 Outpatient Simpson_C VFP VFP [id number] [facility] 2021-10-26 00:00:00 2021-10-26 00:00:00 Orders Only Doctor Unassigned, Melia [facility] 1.2.840.114 350.1.13.10 4.2.7.2.686 [id number] [facility] 2021-10-24 00:00:00 2021-10-24 00:00:00 Outpatient Simpson_C VFP VFP [id number] [facility] 2021-10-20 00:00:00 2021-10-20 00:00:00 Outpatient Simpson_C VFP VFP [id number] [facility] 2021-10-18 00:00:00 2021-10-18 00:00:00 Outpatient Simpson_C VFP VFP [id number] [facility] 2021-10-12 00:00:00 2021-10-12 00:00:00 Outpatient Simpson_C VFP VFP [id number] [facility] 2021-10-11 00:00:00 2021-10-11 00:00:00 Outpatient Simpson_C VFP VFP [id number] [facility] 2021-10-11 00:00:00 2021-10-11 00:00:00 Mary Osullivan, 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 VFP [place] - [facility] - TRISTAN_Haley orozco (VALDE[facility]) [id number] [facility] 2021-09-30 00:00:00 2021-09-30 00:00:00 Outpatient Simpson_C VFP VFP [id number] [facility] 2021-09-26 22:51:00 2021-09-27 09:50:00 Emergency X AISHA CHÁVEZ [facility] ERT [id number] [facility] 2021-09-26 22:51:00 2021-09-27 09:50:00 Emergency Jayden Knight Kent A [facility] ([facility]) 1.2.840.114 350.1.13.10 4.2.7.2.686 [id number] [facility] 2021-09-09 12:44:00 2021-09-09 12:44:00 Outpatient Simpson_C VFP VFP [id number] [facility] 2021-08-17 02:28:00 2021-08-17 02:28:00 Outpatient Simpson_C VFP VFP [id number] [facility] 2021-08-15 10:00:00 2021-08-15 10:00:00 Outpatient Jhonathan FRANCISCO GAMING [facility] [id number] [facility] 2021-08-07 00:00:00 2021-08-07 00:00:00 Telephone Pako [facility] 1.2.840.114 350.1.13.10 4.2.7.2.686 [id number] [facility] 2021-07-21 02:06:00 2021-07-21 02:06:00 Outpatient Simpson_C VFP VFP [id number] [facility] 2021-06-17 05:29:00 2021-06-17 05:29:00 Outpatient Simpson_C VFP VFP [id number] [facility] 2021-06-17 05:29:00 2021-06-17 05:29:00 Outpatient Simpson_C VFP VFP [id number] [facility] 2021-06-16 02:26:00 2021-06-16 02:26:00 Outpatient Simpson_C VFP VFP [id number] [facility] 2021-06-14 05:22:00 2021-06-14 05:22:00 Outpatient Simpson_C VFP VFP [id number] [facility] 2021-06-13 09:29:00 2021-06-13 09:29:00 Outpatient Simpson_C VFP VFP [id number] [facility] 2021-06-13 03:42:00 2021-06-13 03:42:00 Outpatient VFP VFP [id number] [facility] 2021-06-13 00:00:00 2021-06-13 00:00:00 Davy Manley MD: [address] [facility] A, [place] [address] , Ph. VFP [place] - [facility] - TRISTAN_Haley orozco ([facility]) [id number] [facility] 2021-06-10 03:08:00 2021-06-10 03:08:00 Outpatient Simpson_C VFP VFP [id number] [facility] 2021-06-10 03:08:00 2021-06-10 03:08:00 Outpatient Simpson_C VFP VFP [id number] [facility] 2021-06-08 07:13:00 2021-06-08 07:13:00 Outpatient Simpson_C VFP VFP [id number] [facility] 2021-06-06 05:32:00 2021-06-06 05:32:00 Outpatient Simpson_C VFP VFP [id number] [facility] 2021-05-12 03:08:00 2021-05-12 03:08:00 Outpatient Simpson_C VFP VFP [id number] [facility] 2021-05-01 10:30:00 2021-05-01 10:30:00 Outpatient JOSE VILLAVICENCIO [facility] [id number] [facility] 2021-04-23 08:40:00 2021-04-23 08:40:00 Outpatient BBO ZHENG [facility] [id number] [facility] 2021-04-01 04:08:00 2021-04-01 04:08:00 Outpatient Simpson_C VFP VFP [id number] [facility] 2021-04-01 04:08:00 2021-04-01 04:08:00 Outpatient Simpson_C VFP VFP [id number] [facility] 2021-03-29 10:38:00 2021-03-29 10:38:00 Outpatient Simpson_C VFP VFP [id number] [facility] 2021-03-26 03:43:00 2021-03-26 03:43:00 Outpatient Simpson_C VFP VFP [id number] [facility] 2021-03-22 11:26:00 2021-03-22 11:26:00 Outpatient Simpson_C VFP VFP [id number] [facility] 2021-03-22 00:00:00 2021-03-22 00:00:00 Davy Manley MD: [address], [address], [place] [address] , Ph. VFP [place] - [facility] - Raman orozco (WAG) [id number] [facility] 2021-03-20 08:21:00 2021-03-20 08:21:00 Outpatient Vineet_C VFP VFP [id number] [facility] 2021-03-19 01:56:00 2021-03-19 01:56:00 Outpatient VFP VFP [facility] 2021-02-20 09:00:00 2021-02-20 09:00:00 Outpatient R JOSE BACK [facility] [id number] [facility] 2021-01-29 09:20:00 2021-01-29 09:20:00 Outpatient R BOB MIN [facility] [id number] [facility] 2021-01-29 00:00:00 2021-01-29 00:00:00 Telephone Bob Min [facility] .840.114 350.1.13.10 4.2.7.2.686 [id number] [facility] 2021-01-29 00:00:00 2021-01-29 00:00:00 Patient Secure Msg Doctor Unassigned, Melia [facility]ALTH [facility] 1..840.114 350.1.13.10 4.2.7.2.686 [id number] [facility] 2021-01-26 13:15:00 2021-01-26 13:15:00 Outpatient R UNKNOWN, ATTENDING [facility] [id number] [facility] 2021-01-26 13:15:00 2021-01-26 13:15:00 Outpatient R UNKNOWN, ATTENDING [facility] [id number] [facility] 2021-01-16 10:12:18 2021-01-16 10:53:24 Office Visit Francisco Gaming [facility] 1.2.840.114 350.1.13.10 4.2.7.2.686 [id number] [facility] 2021-01-16 10:00:00 2021-01-16 10:53:24 Outpatient FRANCISCO WANG [facility] [id number] [facility] 2021-01-16 10:00:00 2021-01-16 10:00:00 Outpatient FRANCISCO WANG [facility] [id number] [facility] 2021-01-16 00:00:00 2021-01-16 00:00:00 Patient Outreach Zahraa Soliz [facility] MULTISPEC [facility]TY [facility] 1.2840.114 350.1.13.10 4.2.7.2.686 [id number] [facility] 2021-01-16 00:00:00 2021-01-16 00:00:00 Patient Outreach Zahraa Soliz [facility] 1.2840.114 350.1.13.10 4.2.7.2.686 [id number] [id number] [facility] 2020-12-29 09:26:19 2020-12-29 10:17:16 Office Visit Bob Min [facility] 1.840.114 350.1.13.10 4.2.7.2.686 [id number] [facility] 2020-12-29 09:20:00 2020-12-29 09:20:00 Outpatient BOB [facility]ENG [facility] [id number] [facility] 2020-12-26 00:00:00 2020-12-26 00:00:00 Telephone Bob Min [facility] 1.2.840.114 350.1.13.10 4.2.7.2.686 [id number] [id number] [facility] 2020-12-21 16:14:57 2020-12-21 16:29:57 Applique [facility] 1.2.840.114 350.1.13.10 4.2.7.2.686 [id number] [facility] 2020-12-21 08:36:11 2020-12-21 09:33:21 [facility] [place] 1.2.840.114 350.1.13.10 4.2.7.2.686 [id number] [facility] 2020-12-21 08:40:00 2020-12-21 08:40:00 Outpatient R BOB MIN [facility] [id number] [facility] 2020-12-20 10:30:00 2020-12-20 10:30:00 Outpatient R [facility] [id number] [facility] 2020-12-20 00:00:00 2020-12-20 00:00:00 [facility] 1.2.840.114 350.1.13.10 4.2.7.2.686 [id number] [facility] 2020-12-18 00:00:00 2020-12-18 00:00:00 [facility] 1.2.840.114 350.1.13.10 4.2.7.2.686 [id number] [id number] [facility] 2020-12-14 00:00:00 2020-12-14 00:00:00 Patient Secure Abdelrahman Dempsey Tadeo [facility] 1.0.114 350.1.13.10 4.2.7.2.686 [id number] [facility] 2020-12-13 08:47:34 2020-12-13 09:02:34 Applique Cutter Visit Vtc-Samuel Ruiz [facility] 1..114 350.1.13.10 4.2.7.2.686 [id number] [facility] 2020-12-13 08:45:00 2020-12-13 08:45:00 Outpatient SAMUEL [facility] [id number] [facility] 2020-12-11 00:00:00 2020-12-11 00:00:00 [facility] 1.0.114 350.1.13.10 4.2.7.2.686 [id number] [id number] [facility] 2020-12-08 08:25:50 2020-12-08 08:40:50 Office Visit Yuniel Thurman [facility] 1..114 350.1.13.10 4.2.7.2.686 [id number] [facility] 2020-12-08 08:15:00 2020-12-08 08:15:00 Outpatient YUNIEL BANEGAS [facility] [id number] [facility] 2020-12-06 09:45:00 2020-12-06 10:45:00 [facility] 1.0.114 350.1.13.10 4.2.7.2.686 [id number] [facility] 2020-12-06 09:15:00 2020-12-06 09:15:00 Outpatient YUNIEL BANEGAS [facility] [id number] [facility] 2020-12-06 00:00:00 2020-12-06 00:00:00 Telephone Bob Min [facility] 1.0.114 350.1.13.10 4.2.7.2.686 [id number] [facility] 2020-12-06 00:00:00 2020-12-06 00:00:00 Orders Only Doctor Unassigned, Melia [facility] 1.0.114 350.1.13.10 4.2.7.2.686 [id number] [id number] [facility] 2020-12-04 15:20:00 2020-12-04 23:59:00 Hospital Encounter Bob Min [facility] 1.840.114 350.1.13.10 4.2.7.2.686 [id number] [facility] 2020-12-04 16:01:08 2020-12-04 16:16:08 Laboratory Only Only, Lcc Test Unknown, Attending [facility] 1.840.114 350.1.13.10 4.2.7.2.686 [id number] [facility] 2020-12-04 14:45:00 2020-12-04 15:19:00 Hospital Encounter [facility] [place] [facility] 1.840.114 350.1.13.10 4.2.7.2.686 [id number] [facility] 2020-12-04 00:00:00 2020-12-04 00:00:00 Outpatient R BOB MIN [facility] [id number] [facility] 2020-12-01 11:13:31 2020-12-01 12:40:21 Office Visit Jose Back [facility] 1.20.114 350.1.13.10 4.2.7.2.686 [id number] [facility] 2020-12-01 11:13:31 2020-12-01 12:40:21 Office Visit [facility] 1.0.114 350.1.13.10 4.2.7.2.686 [id number] [facility] 2020-12-01 11:15:00 2020-12-01 11:15:00 Outpatient R NAZANIN [facility] [id number] [facility] 2020-12-01 08:34:32 2020-12-01 09:04:32 [facility] Francisco [facility] 1..114 350.1.13.10 4.2.7.2.686 [id number] [facility] 2020-12-01 08:34:32 2020-12-01 09:04:32 Office Visit Francisco Gaming [facility] 1.20.114 350.1.13.10 4.2.7.2.686 [id number] [facility] 2020-12-01 08:30:00 2020-12-01 08:30:00 Outpatient R FRANCISCO GAMING [facility] [id number] [facility] 2020-12-01 00:00:00 2020-12-01 00:00:00 Orders Only Doctor Unassigned, Melia [facility] 1.0.114 350.1.13.10 4.2.7.2.686 [id number] [facility] 2020-11-29 09:06:46 2020-11-29 09:50:07 Office Visit Bob Min [facility] 1.2.840.114 350.1.13.10 4.2.7.2.686 [id number] [facility] 2020-11-29 09:06:46 2020-11-29 09:50:07 Office Visit Bob Min [facility] 1.2.840.114 350.1.13.10 4.2.7.2.686 [id number] [facility] 2020-11-29 09:00:00 2020-11-29 09:00:00 Outpatient R MIN BOB [facility] [id number] [facility] 2020-11-29 00:00:00 2020-11-29 00:00:00 Telephone Bob Min [facility] 1.2.840.114 350.1.13.10 4.2.7.2.686 [id number] [facility] 2020-11-28 00:00:00 2020-11-28 00:00:00 Telephone Min Bob [facility] 1.2.840.114 350.1.13.10 4.2.7.2.686 [id number] [facility] 2020-11-28 00:00:00 2020-11-28 00:00:00 Telephone Bob Min [facility] 1.2.840.114 350.1.13.10 4.2.7.2.686 [id number] [facility] 2020-11-28 00:00:00 2020-11-28 00:00:00 Telephone [facility] 1.2.840.114 350.1.13.10 4.2.7.2.686 [id number] [facility] 2020-11-28 00:00:00 2020-11-28 00:00:00 Telephone [facility] 1.2.840.114 350.1.13.10 4.2.7.2.686 [id number] [facility] 2020-11-27 13:12:13 2020-11-27 14:16:37 Office Visit Yuniel Thurman [facility] 1.2.840.114 350.1.13.10 4.2.7.2.686 [id number] [facility] 2020-11-27 13:12:13 2020-11-27 14:16:37 Office Visit Yuniel Thurman [facility] 1.2.840.114 350.1.13.10 4.2.7.2.686 [id number] [facility] 2020-11-27 13:00:00 2020-11-27 13:00:00 Outpatient R YUNIEL THURMAN [facility] [id number] [facility] 2020-11-24 00:00:00 2020-11-24 00:00:00 Telephone [facility] 1.2.840.114 350.1.13.10 4.2.7.2.686 [id number] 044 [id number] [facility] 2020-11-24 00:00:00 2020-11-24 00:00:00 Telephone [facility] 1.2.840.114 350.1.13.10 4.2.7.2.686 [id number] [facility] 2020-11-23 00:00:00 2020-11-23 00:00:00 [facility] 1.2.840.114 350.1.13.10 4.2.7.2.686 [id number] 044 [id number] [facility] 2020-11-23 00:00:00 2020-11-23 00:00:00 Telephone Pako [facility] 1.2.840.114 350.1.13.10 4.2.7.2.686 [id number] [facility] 2020-11-22 11:21:37 2020-11-22 11:36:37 Applique Cutter Visit V[facility] Min, [facility] 1.2.840.114 350.1.13.10 4.2.7.2.686 [id number] [facility] 2020-11-22 11:21:37 2020-11-22 11:36:37 Applique Cutter Visit [facility]tc-Lab Min, [facility] 1.2.840.114 350.1.13.10 4.2.7.2.686 [id number] [facility] 2020-11-22 10:27:09 2020-11-22 10:47:09 Office Visit Pako [facility] 1.2.840.114 350.1.13.10 4.2.7.2.686 [id number] [facility] 2020-11-22 10:27:09 2020-11-22 10:47:09 Office Visit [facility] 1.2.840.114 350.1.13.10 4.2.7.2.686 [id number] [id number] [facility] 2020-11-22 10:40:00 2020-11-22 10:40:00 Outpatient BOB ZHENG [facility] [id number] [facility] 2020-11-22 00:00:00 2020-11-22 00:00:00 Orders Only Doctor Unassigned, Melia [facility] 1.2.840.114 350.1.13.10 4.2.7.2.686 [id number] [facility] 2020-11-22 00:00:00 2020-11-22 00:00:00 Orders Only Doctor Unassigned, Melia [facility] 1.2.840.114 350.1.13.10 4.2.7.2.686 [id number] [facility] 2020-11-17 12:22:00 2020-11-17 17:28:00 Emergency [facility] ([facility]) 1.2.840.114 350.1.13.10 4.2.7.2.686 [id number] [facility] 2020-11-17 12:22:00 2020-11-17 17:28:00 Emergency [facility] ([facility]) 1.2.840.114 350.1.13.10 4.2.7.2.686 [id number] [facility] 2020-11-16 21:09:00 2020-11-17 00:08:00 Emergency Giovanni Levine [facility] ([facility]) 1.2.840.114 350.1.13.10 4.2.7.2.686 [id number] [facility] 2020-11-16 21:09:00 2020-11-17 00:08:00 Emergency [facility] ([facility]) 1.2.840.114 350.1.13.10 4.2.7.2.686 [id number] [facility] 2020-11-17 00:00:00 2020-11-17 00:00:00 Nurse Triage Ivy, [facility] 1.2.840.114 350.1.13.10 4.2.7.2.686 [id number] [facility] 2020-11-17 00:00:00 2020-11-17 00:00:00 Nurse Triage [facility] 1.2.840.114 350.1.13.10 4.2.7.2.686 [id number] [facility] 2020-03-13 09:45:00 2020-03-13 09:45:00 Outpatient GINI REDDING [facility] [id number] [facility] Results Test Description Test Time Test Comments Results Result Co mments Source [facility]-Pathologist [id number] 02:14:56ANA - Pathologist InterpretationANA HEp-2 IIFA Pathologist Interpretation Report Patient Name: Maritza Washington? ?Antinuclear Antibody (CHIRAG) Test (Anti-Cell Antibodies Test) Indirect Immu nofluorescence Assay on HEp-2 Cells Screening titer: 1:80 (adults, > 18 years old), 1:40 (pediatrics, <= 18 years old)?Result: The antinuclear antibody (CHIRAG) test is positive, demonstrating theAC-4/5-Speckled Pattern with a titer of 1:160. A titer greater than or equal to 1:160 is generally considered to be clinically significant. ? General Remarks: The AC-4/5-Speckled Pattern is one of the least specific CHIRAG immunofluorescent patterns, associated with many autoantibodies, including antibodies against SS-A (Ro), SS-B (La), Mi-2, TIF1- gamma, TIF1-beta, Ku, U1RNP, U2RNP, Davis, RNA polymerase III, and other currently unspecified autoantigens. As such, this pattern may be found in a wide variety of systemic autoimmune rheumatic diseases, including Sjogren's syndrome, systemic lupus erythematosus (SLE), systemic sclerosis, mixed connective tissue disease (MCTD), undifferentiated connective tissue disease (UCTD), dermatomyositis, polymyositis, and systemic sclerosis-autoimmune myopathy overlap syndrome. Additionally, a nuclear speckled pattern may be found in organ-specific autoimmune diseases (such as autoimmune thyroid disease, autoimmune hepatitis, etc.), other types of autoimmune disease, and certain non- autoimmune diseases/conditions. This pattern may also be seen in relatively healthy individuals, particularly at lower titers. For more information, the International Consensus on CHIRAG Patterns (ICAP) guidelines can be found at www.anapatterns.org. CHIRAG pattern clinical associations are neither absolute nor diagnostic, but they may serve as a guide to differential diagnosis formation and/or subsequent follow-up test selection in the appropriate clinical setting. ? Due to lack of specificity, a positive CHIRAG by itself is not diagnostic and must be interpreted in the context of a patient's clinical presentation and other laboratory findings. If there is clinical suspicion for an autoimmune disorder, obtaining disease-specific and disease-associated autoantibody tests is recommended for further evaluation. ? The CHIRAG test is an important screening test for systemic autoimmune rheumatic disease (SARD). However, the CHIRAG test is non-specific for SARD and may be positive in a variety of clinical settings, including autoimmune, inflammatory, infectious, and neoplastic/malignant conditions, as well as due to certain medications. Additionally, CHIRAG positivity may be seen in varying percentages of healthy individuals, especially at lower titers, in the healthy elderly population, andin individuals with a family history of rheumatic disease. Therefore, a diagnosis cannot be based exclusively on CHIRAG detection and/or pattern and thus should be made via the integration of patient history, physical exam findings, and other diagnostic tests as clinically indicated. Phoebe Kolb MD ?01/13/2024 ?9:14 PM 01/13/2024 9:14 PM CDTUT[facility] Hospital[facility]uclear Antibody [id number] 21:23:34 * Test Item Value Reference Range Interpretation Comme [facility] CHIRAG Titer by IFA (test code = 5745625778) 1:160 CHIRAG Pattern (test code = 9565215051) Speckled LUCIUS (test code = LUCIUS) Anti-nuclear antib odies are seen in a variety of autoimmune diseases and may also be seen in low titers in otherwise normal individuals without evidence of autoimmune disease. In general, a titer greater than or equal to 1:160 is considered significant. For further information, contact the appropriate Specialist. For additional CHIRAG tests, refer to the Laboratory Test Directory. The specimen will be held for 7 days. [facility] Hospital[facility]uclear Antibody [id number] 21:44:16* Test Item Value Reference Range Interpretation Comme [facility] CHIRAG (test code = 7246786114) Positive Negative A LUCIUS (test code = LUCIUS) Negative: ?No Anti-Nuclear Antibodies detected by IFA. Positive: ?CHIRAG IFA screen performed with a 1:80 dilution in adults and a 1:40 dilution in pediatrics. ?A titer is performed and reported separately when the CHIRAG is "Positive" or when "Cytoplasmic staining is observed." Lab Interpretation (test code = 30687-5) Abnormal [facility] HospitalHav Antibody (IgG and IgM)2024-01-10 07:21:32 * Test Item Value Reference Range Interpretation Comme [facility] HAV Total (test code = 8681525730) Positive HAVT Semi-Quantitative (test code = 8004749224) 0.07 LUICUS (test code = LUCIUS) Indicates past or present infection with HAV or exposure to HAV due to vaccination. [facility] HospitalHepatitis B Surface [id number] 07:09:56* Test Item Value Reference Range Interpretation Comme [facility] HBsAB (test code = 3072271032) Negative HBsAb Semi-Quantitative (test code = 5762282474) 0.10 mIU/mL LUCIUS (test code = LUCIUS) Interpretation: ?Hepatitis B Surface Antibody ? Negative - Patient is considered to be not immune to infection with HBV. ? ? Positive - Anti-HBs detected at greater than or equal to 12 mIU/mL. ?Patient is considered to be immune to infection with HBV. ? [facility] HospitalHcv Oaorwlyf5516-91-72 07:09:56* Test Item Value Reference Range Interpretation Comme nts HCV Ab (test code = 51887-3) Negative HCV Semi-Quantitative (test code = 38116-8) 0.07 [facility] HospitalTriiodothyronine2024-10-26 07:01:13* Test Item Value Reference Range Interpretation Comme nts T3 (test code = 5577395061) 112.0 ng/dL 97.0-170.0 Lab Interpretation (test cod e = 94701-2) Normal [facility] HospitalHepatitis B Surface Nbbbocb9075-35-34 06:52:48 * Test Item Value Reference Range Interpretation Comme nts HBsAg Semi-Quantitative (jocelyne t code = 5195-3) 0.10 Negative [facility] HospitalComp. Metabolic Panel (90174)2024-01-09 23:57:24* Test Item Value Reference Range Interpretation Comme nts NA (test code = 8468224214) 140 mmol/L 135-145 K (test code = 2700069314) 4.2 mmol/L 3.5-5.0 CL (test code = 5714349490) 103 mmol/L 98-108 CO2 TOTAL (test code = 0045113580) 32 mmol/L 23-31 H AGAP (test code = 3935068575) 5 2-16 BUN (test code = 3166268160) 24 mg/dL 7-23 H GLUCOSE (test code = 6160390157) 112 mg/dL 70-110 H CREATININE (test code = 2160-0) 1.17 mg/dL 0.50-1.04 H TOTAL BILI (test code = 0062791374) 0.8 mg/dL 0.1-1.1 CALCIUM (test code = 4344865824) 10.5 mg/dL 8.6-10.6 T PROTEIN (test code = 6743385311) 7.2 g/dL 6.3-8.2 ALBUMIN (test code = 7428211757) 4.2 g/dL 3.5-5.0 ALK PHOS (test code = 2319666876) 98 U/L 34-122 ALTv (test code = 1742-6) 64 U/L 5-35 H AST(SGOT) (test code = 4758414374) 39 U/L 13-40 eGFR (test code = 17936-9) 53.9 mL/min/1.73m2 CKD-EPI eGFR (2020). Assuming creatinine has been stable day-to-day for at least three months, the eGFR indicates Category G3a (45 - 59 mL/min/1.73 m2) Lab Interpretation (test code = 96583-5) Abnormal [facility] HospitalPONV Urinalysis W Specific Dtxfhct0277-50-42 21:53:00* Test Item Value Reference Range Interpretation Comme nts POCT U SP GRAV (test code = 3255) 1.000 mg/dl 1.005-1.025 A POCT PH U (test code = 3254) 5 mg/dl 5-8 POCT U LEUK EST (test code = 3263) neg Negative - Negative POCT U NIT (test code = 3262) neg Negative - Negati ve POCT U PROT (test code = 3259) neg Negative - Negative POCT U GLU (test code = 3256) neg Negative - Negati ve POCT U KETONE (test code = 3258) neg Negative - Negative POCT U UROBILI (test code = 3260) 0.2 mg/dl 0.2-1 POCT U BILI (test code = 3261) neg Negative - Negative POCT U BLD (test code = 3257) neg Negative - Negati ve POCT U COLOR (test code = 3266) POCT U APPEAR (test code = 3267) Lab Interpretation (test cod e = 78206-1) Abnormal [facility] HospitalGlycosylated Hemoglobin (A1C)2023-09-11 01:04:49* Test Item Value Reference Range Interpretation Comme nts HGB A1C (test code = 4548-4) 5.8 % 4.0-5.7 H LUCIUS (test code = LUCIUS) Reference RangesNormal: <5.7%Prediabetes: 5.7 - 6.4%Diabetes: > 6.5% Lab Interpretation (test code = 21475-3) Abnormal [facility] HospitalFr [id number] 23:46:07* Test Item Value Reference Range Interpretation Comme nts FREE T4 (test code = 0909149804) 0.96 0.78-2.20 Lab Interpretation (test cod e = 41997-7) Normal [facility] HospitalThyroid Stimulating Atjcoyg5378-39-99 20:15:52 * Test Item Value Reference Range Interpretation Comme nts TSH (test code = 2257491353) 8.75 0.45-4.70 H Lab Interpretation (test cod e = 33186-6) Abnormal [facility] HospitalLipid Panel (17690)(Total Cholesterol, Triglycerides, HDL)2023-09-10 19:47:06* Test Item Value Reference Range Interpretation Comme nts CHOL (test code = 1178428413) 100 mg/dL 120-200 L HDL (test code = 3531587746) 47 mg/dL >=50 L HDLC RATIO (test code = 2124276360) 2.1 <=4.5 TRIG (test code = 6068608752) 65 mg/dL 30-170 LDL CHOL (test code = 03626-1) 40 mg/dL <=160 VLDL (test code = 0083361687) 13 mg/dL 5-60 Lab Interpretation (test cod e = 38403-9) Abnormal [facility] HospitalComp. Metabolic Panel (40074)2023-09-10 19:46:45* Test Item Value Reference Range Interpretation Comme nts NA (test code = 9011695371) 143 mmol/L 135-145 K (test code = 4454334174) 3.9 mmol/L 3.5-5.0 CL (test code = 3364782329) 105 mmol/L 98-108 CO2 TOTAL (test code = 8153197543) 30 mmol/L 23-31 AGAP (test code = 0223839292) 8 2-16 BUN (test code = 4703361968) 16 mg/dL 7-23 GLUCOSE (test code = 8637304093) 91 mg/dL 70-110 CREATININE (test code = 2160-0) 0.88 mg/dL 0.50-1.04 TOTAL BILI (test code = 6075827811) 0.6 mg/dL 0.1-1.1 CALCIUM (test code = 1605982000) 10.5 mg/dL 8.6-10.6 T PROTEIN (test code = 7750798051) 6.5 g/dL 6.3-8.2 ALBUMIN (test code = 4657962881) 4.0 g/dL 3.5-5.0 ALK PHOS (test code = 2787760802) 159 U/L 34-122 H ALTv (test code = 1742-6) 74 U/L 5-35 H AST(SGOT) (test code = 6792802582) 45 U/L 13-40 H eGFR (test code = 43086-9) 75.8 mL/min/1.73m2 CKD-EPI eGFR (2020). Assuming creatinine has been stable day-to-day for at least three months, the eGFR indicates Category G2 (60 - 89 mL/min/1.73 m2) Lab Interpretation (test code = 71764-9) Abnormal [facility] with Fnad0163-30-99 19:46:05* Test Item Value Reference Range Interpretation [...] 32.4 g/dL 31.6-35.1 RDW-SD (test code = 17782-0) 46.5 fL 39.0-49.9 RDW-CV (test code = 788-0) 13.2 % 12.0-15.5 PLT (test code = 777-3) 235 166-358 MPV (test code = 66545-2) 11.6 fL 9.5-12.9 NRBC/100 WBC (test code = 4220399076) 0.0 0.0-10.0 NRBC x10^3 (test code = 7210404906) See_Comment [Automated [employer]] The system which generated this result transmitted reference range: 10*3/?L. The reference range was not used to interpret this result as normal/abnormal. GRAN MAT (NEUT) % (test code = 770-8) 68.6 % IMM GRAN % (test code = 3480031552) 0.20 % LYMPH % (test code = 736-9) 19.4 % MONO % (test code = 5905-5) 8.2 % EOS % (test code = 713-8) 2.5 % BASO % (test code = 706-2) 1.1 % GRAN MAT x10^3(ANC) (test code = 8559735487) 3.86 10*3/uL 1.88-7.09 IMM GRAN x10^3 (test code = 2170331071) 0.00-0.06 LYMPH x10^3 (test code = 731-0) 1.09 10*3/uL 1.32-3.29 L MONO x10^3 (test code = 742-7) 0.46 10*3/uL 0.33-0.92 EOS x10^3 (test code = 711-2) 0.14 10*3/uL 0.03-0.39 BASO x10^3 (test code = 704-7) 0.06 10*3/uL 0.01-0.07 Lab Interpretation (test code = 72286-3) Abnormal [facility] 3+ VW [id number] 02:24:03EXAM: XR HAND 3+ VW RIGHT HISTORY: 58 years old Female; right thumb pain COMPARISON: None FINDINGS:Radiographs of the right hand demonstrate soft tissue swelling about thethumb without underlying acute fracture. 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 Generalized osteopenia isnoted.[facility] HospitalREFERRAL- REQUEST/[id number] 21:13:52Ordered by an unspecified provider.[facility] HospitalFL TIME OR (NON-REPORTABLE)2023-06-17 14:39:42These images do not require a Radiology diagnostic report.[facility] HospitalUrine Culture 2023-06-14 11:52:56* Test Item Value Reference Range Interpretation Comme nts URINE CULTURE (test code = 630-4) No aerobic growth (< 1000 CFU/mL) [facility] HospitalIntubation2024-03-28 21:52:00Jenaro Padilla MD ? ? 06/12/2023 ?5:14 [...] of attempts at approach: 1Ventilation [facility]2023-06-12 18:36:22* Test Item Value Reference Range Interpretation Comme nts POCT GLU (test code = 0966186452) 86 mg/dL 70-110 Lab Interpretation (test cod e = 17301-6) Normal [facility] GLUCOSE (AUTOMATED)2023-06-12 18:36:22* Test Item Value Reference Range Interpretation Comme nts POCT GLU (test code = 7617520819) 86 mg/dL 70-110 Lab Interpretation (test cod e = 98858-3) Normal [facility] GLUCOSE (AUTOMATED)2023-06-12 18:36:22* Test Item Value Reference Range Interpretation Comme nts POCT GLU (test code = 5821280796) 86 mg/dL 70-110 Lab Interpretation (test cod e = 31839-4) Normal [facility]. METABOLIC PANEL (45643)2023-06-05 01:00:22* Test Item Value Reference Range Interpretation Comme nts NA (test code = 0347094247) 137 mmol/L 135-145 K (test code = 9450691252) 3.9 mmol/L 3.5-5.0 CL (test code = 6889513527) 101 mmol/L 98-108 CO2 TOTAL (test code = 7931829243) 28 mmol/L 23-31 AGAP (test code = 7131084480) 8 2-16 BUN (test code = 5511326345) 17 mg/dL 7-23 GLUCOSE (test code = 8032991424) 62 mg/dL 70-110 L CREATININE (test code = 2160-0) 1.04 mg/dL 0.50-1.04 TOTAL BILI (test code = 2572895159) 0.5 mg/dL 0.1-1.1 CALCIUM (test code = 9115995256) 9.2 mg/dL 8.6-10.6 T PROTEIN (test code = 9632742137) 6.8 g/dL 6.3-8.2 ALBUMIN (test code = 2138246453) 3.8 g/dL 3.5-5.0 ALK PHOS (test code = 2218223599) 237 U/L 34-122 H ALTv (test code = 1742-6) 119 U/L 5-35 H AST(SGOT) (test code = [id number]) 59 U/L 13-40 H eGFR (test code = 84083-2) 62.0 mL/min/1.73m2 CKD-EPI eGFR (2020). Assuming creatinine has been stable day-to-day for at least three months, the eGFR indicates Category G2 (60 - 89 mL/min/1.73 m2) Lab Interpretation (test code = 66945-7) Abnormal [facility] WITH [id number] 00:59:46* Test Item Value Reference Range Interpretation [...] 34.4 g/dL 31.6-35.1 RDW-SD (test code = 01402-1) 41.2 fL 39.0-49.9 RDW-CV (test code = 788-0) 12.4 % 12.0-15.5 PLT (test code = 777-3) 306 166-358 MPV (test code = 67388-9) 10.5 fL 9.5-12.9 NRBC/100 WBC (test code = 5092812022) 0.0 0.0-10.0 NRBC x10^3 (test code = 6105779928) See_Comment [Automated messa ge] The system which generated this result transmitted reference range: 10*3/?L. The reference range was not used to interpret this result as normal/abnormal. GRAN MAT (NEUT) % (test code = 770-8) 66.4 % IMM GRAN % (test code = 7956663212) 0.50 % LYMPH % (test code = 736-9) 13.9 % MONO % (test code = 5905-5) 14.3 % EOS % (test code = 713-8) 4.4 % BASO % (test code = 706-2) 0.5 % GRAN MAT x10^3(ANC) (test code = 2494067776) 6.19 10*3/uL 1.88-7.09 IMM GRAN x10^3 (test code = 9742146165) 0.05 10*3/uL 0.00-0.06 LYMPH x10^3 (test code = 731-0) 1.30 10*3/uL 1.32-3.29 L MONO x10^3 (test code = 742-7) 1.34 10*3/uL 0.33-0.92 H EOS x10^3 (test code = 711-2) 0.41 10*3/uL 0.03-0.39 H BASO x10^3 (test code = 704-7) 0.05 10*3/uL 0.01-0.07 Lab Interpretation (test code = 64447-4) Abnormal [facility] GLUCOSE (AUTOMATED)2023-06-03 17:26:28* Test Item Value Reference Range Interpretation Comme nts POCT GLU (test code = 4936328065) 188 mg/dL 70-110 H Lab Interpretation (test cod e = 25071-9) Abnormal [facility] GLUCOSE (AUTOMATED)2023-06-03 17:26:28* Test Item Value Reference Range Interpretation Comme nts POCT GLU (test code = 3310265674) 188 mg/dL 70-110 H Lab Interpretation (test cod e = 01624-5) Abnormal [facility] GLUCOSE (AUTOMATED)2023-06-03 12:58:09* Test Item Value Reference Range Interpretation Comme nts POCT GLU (test code = 8473186152) 219 mg/dL 70-110 H Lab Interpretation (test cod e = 38567-5) Abnormal [facility] GLUCOSE (AUTOMATED)2023-06-03 12:58:09* Test Item Value Reference Range Interpretation Comme nts POCT GLU (test code = 8483681573) 219 mg/dL 70-110 H Lab Interpretation (test cod e = 68188-9) Abnormal [facility] GLUCOSE (AUTOMATED)2023-06-03 08:12:22* Test Item Value Reference Range Interpretation Comme nts POCT GLU (test code = 8402340180) 198 mg/dL 70-110 H Lab Interpretation (test cod e = 08998-7) Abnormal [facility] GLUCOSE (AUTOMATED)2023-06-03 08:12:22* Test Item Value Reference Range Interpretation Comme nts POCT GLU (test code = 3404962136) 198 mg/dL 70-110 H Lab Interpretation (test cod e = 35934-4) Abnormal [facility] GLUCOSE (AUTOMATED)2023-06-03 05:04:01* Test Item Value Reference Range Interpretation Comme nts POCT GLU (test code = 6998479907) 330 mg/dL 70-110 H Lab Interpretation (test cod e = 66827-9) Abnormal [facility] GLUCOSE (AUTOMATED)2023-06-03 05:04:01* Test Item Value Reference Range Interpretation Comme nts POCT GLU (test code = 0016032483) 330 mg/dL 70-110 H Lab Interpretation (test cod e = 82623-1) Abnormal [facility] GLUCOSE (AUTOMATED)2023-06-03 01:51:02* Test Item Value Reference Range Interpretation Comme nts POCT GLU (test code = 7486098399) 418 mg/dL 70-110 H Lab Interpretation (test cod e = 00486-9) Abnormal [facility] GLUCOSE (AUTOMATED)2023-06-03 01:51:02* Test Item Value Reference Range Interpretation Comme nts POCT GLU (test code = 1154181436) 418 mg/dL 70-110 H Lab Interpretation (test cod e = 73405-6) Abnormal [facility] GLUCOSE (AUTOMATED)2023-06-02 21:47:04* Test Item Value Reference Range Interpretation Comme nts POCT GLU (test code = 9440812921) 192 mg/dL 70-110 H Lab Interpretation (test cod e = 36017-1) Abnormal [facility] GLUCOSE (AUTOMATED)2023-06-02 21:47:04* Test Item Value Reference Range Interpretation Comme nts POCT GLU (test code = 5656276772) 192 mg/dL 70-110 H Lab Interpretation (test cod e = 62435-8) Abnormal [facility] TIME OR (NON-REPORTABLE)2023-06-02 18:12:07 These images do not require a Radiology diagnostic report.[facility] TIME OR (NON-REPORTABLE)2023-06-02 18:12:07These images do not require a Radiology diagnostic report.[facility] GLUCOSE (AUTOMATED)2023-06-02 01:58:20* Test Item Value Reference Range Interpretation Comme nts POCT GLU (test code = 5375285247) 193 mg/dL 70-110 H Lab Interpretation (test cod e = 47892-0) Abnormal [facility] GLUCOSE (AUTOMATED)2023-06-02 01:58:20* Test Item Value Reference Range Interpretation Comme nts POCT GLU (test code = 4934974753) 193 mg/dL 70-110 H Lab Interpretation (test cod e = 91105-9) Abnormal [facility] GLUCOSE (AUTOMATED)2023-06-01 22:27:31* Test Item Value Reference Range Interpretation Comme nts POCT GLU (test code = 2122733918) 98 mg/dL 70-110 Lab Interpretation (test cod e = 85179-6) Normal [facility] GLUCOSE (AUTOMATED)2023-06-01 22:27:31* Test Item Value Reference Range Interpretation Comme nts POCT GLU (test code = 4643701552) 98 mg/dL 70-110 Lab Interpretation (test cod e = 52201-2) Normal [facility] Glucose (Age >30 Days)2023-06-01 22:27:00 * Test Item Value Reference Range Interpretation Comme nts POCT Glu (age>30days) (test code = 3342) 98 mg/dL 70-110 Lab Interpretation (test cod e = 73778-9) Normal [facility] Glucose (Age >30 Days)2023-06-01 22:27:00 * Test Item Value Reference Range Interpretation Comme nts POCT Glu (age>30days) (test code = 3342) 98 mg/dL 70-110 Lab Interpretation (test cod e = 78818-0) [facility] [id number] 18:01:12Chest, two views History: ?cough [facility] [id number] 18:01:12Chest, two views History: ?cough [facility] [id number] 17:53:09EXAM: CT ABDOMEN AND PELVIS WITHOUT CONTRAST [...] TISSUES: No suspicious lytic or sclerotic bony lesions.[facility] 2023-06-01 17:53:09EXAM: CT [...] TISSUES: No suspicious lytic or sclerotic bony lesions.[facility] WITH [id number] 17:05:51* Test Item Value Reference Range Interpretation [...] 34.1 g/dL 31.6-35.1 RDW-SD (test code = 55001-2) 41.0 fL 39.0-49.9 RDW-CV (test code = 788-0) 12.1 % 12.0-15.5 PLT (test code = 777-3) 273 166-358 MPV (test code = 65536-1) 10.6 fL 9.5-12.9 NRBC/100 WBC (test code = 4126991085) 0.0 0.0-10.0 NRBC x10^3 (test code = 4979700663) See_Comment [Automated messa ge] The system which generated this result transmitted reference range: 10*3/?L. The reference range was not used to interpret this result as normal/abnormal. GRAN MAT (NEUT) % (test code = 770-8) 75.9 % IMM GRAN % (test code = 6176517885) 0.30 % LYMPH % (test code = 736-9) 10.6 % MONO % (test code = 5905-5) 12.3 % EOS % (test code = 713-8) 0.5 % BASO % (test code = 706-2) 0.4 % GRAN MAT x10^3(ANC) (test code = 7734143084) 9.36 10*3/uL 1.88-7.09 H IMM GRAN x10^3 (test code = 8471867717) 0.04 10*3/uL 0.00-0.06 LYMPH x10^3 (test code = 731-0) 1.30 10*3/uL 1.32-3.29 L MONO x10^3 (test code = 742-7) 1.51 10*3/uL 0.33-0.92 H EOS x10^3 (test code = 711-2) 0.06 10*3/uL 0.03-0.39 BASO x10^3 (test code = 704-7) 0.05 10*3/uL 0.01-0.07 Lab Interpretation (test code = 13729-0) Abnormal [facility] WITH [id number] 17:05:51* Test Item Value Reference Range Interpretation [...] 34.1 g/dL 31.6-35.1 RDW-SD (test code = 00463-4) 41.0 fL 39.0-49.9 RDW-CV (test code = 788-0) 12.1 % 12.0-15.5 PLT (test code = 777-3) 273 166-358 MPV (test code = 42938-5) 10.6 fL 9.5-12.9 NRBC/100 WBC (test code = 3082184424) 0.0 0.0-10.0 NRBC x10^3 (test code = 0004431513) See_Comment [Automated messa ge] The system which generated this result transmitted reference range: 10*3/?L. The reference range was not used to interpret this result as normal/abnormal. GRAN MAT (NEUT) % (test code = 770-8) 75.9 % IMM GRAN % (test code = 8123049517) 0.30 % LYMPH % (test code = 736-9) 10.6 % MONO % (test code = 5905-5) 12.3 % EOS % (test code = 713-8) 0.5 % BASO % (test code = 706-2) 0.4 % GRAN MAT x10^3(ANC) (test code = 6947416123) 9.36 10*3/uL 1.88-7.09 H IMM GRAN x10^3 (test code = 3041446822) 0.04 10*3/uL 0.00-0.06 LYMPH x10^3 (test code = 731-0) 1.30 10*3/uL 1.32-3.29 L MONO x10^3 (test code = 742-7) 1.51 10*3/uL 0.33-0.92 H EOS x10^3 (test code = 711-2) 0.06 10*3/uL 0.03-0.39 BASO x10^3 (test code = 704-7) 0.05 10*3/uL 0.01-0.07 Lab Interpretation (test code = 45436-8) [facility] (89527)2023-06-01 16:54:45* Test Item Value Reference Range Interpretation Comme nts NA (test code = 0078793294) 136 mmol/L 135-145 K (test code = 2800614559) 4.3 mmol/L 3.5-5.0 CL (test code = 6095827359) 102 mmol/L 98-108 CO2 TOTAL (test code = 3428545307) 26 mmol/L 23-31 AGAP (test code = 6854013541) 8 2-16 BUN (test code = 3570231918) 23 mg/dL 7-23 GLUCOSE (test code = 3032272152) 154 mg/dL 70-110 H CREATININE (test code = 2160-0) 1.36 mg/dL 0.50-1.04 H TOTAL BILI (test code = 0900501301) 0.9 mg/dL 0.1-1.1 CALCIUM (test code = 4247179725) 9.3 mg/dL 8.6-10.6 T PROTEIN (test code = 4154117241) 6.9 g/dL 6.3-8.2 ALBUMIN (test code = 7855570570) 4.2 g/dL 3.5-5.0 ALK PHOS (test code = 6093605162) 190 U/L 34-122 H ALTv (test code = 1742-6) 62 U/L 5-35 H AST(SGOT) (test code = 0406564349) 54 U/L 13-40 H eGFR (test code = 06409-9) 45.0 mL/min/1.73m2 CKD-EPI eGFR (2020). Assuming creatinine has been stable day-to-day for at least three months, the eGFR indicates Category G3a (45 - 59 mL/min/1.73 m2) Lab Interpretation (test code = 59895-8) [facility] 16:54:45* Test Item Value Reference Range Interpretation Comme nts LIPASE (test code = 7137190672) 39 U/L 0-220 Lab Interpretation (test cod e = 87462-2) Normal [facility] (00765)2023-06-01 16:54:45* Test Item Value Reference Range Interpretation Comme nts NA (test code = 4676888291) 136 mmol/L 135-145 K (test code = 7127773223) 4.3 mmol/L 3.5-5.0 CL (test code = 5172928730) 102 mmol/L 98-108 CO2 TOTAL (test code = 2773503751) 26 mmol/L 23-31 AGAP (test code = 0424067677) 8 2-16 BUN (test code = 4470319009) 23 mg/dL 7-23 GLUCOSE (test code = 6894583806) 154 mg/dL 70-110 H CREATININE (test code = 2160-0) 1.36 mg/dL 0.50-1.04 H TOTAL BILI (test code = 8979468417) 0.9 mg/dL 0.1-1.1 CALCIUM (test code = 9937648677) 9.3 mg/dL 8.6-10.6 T PROTEIN (test code = 3053294987) 6.9 g/dL 6.3-8.2 ALBUMIN (test code = 7271840239) 4.2 g/dL 3.5-5.0 ALK PHOS (test code = 5107394919) 190 U/L 34-122 H ALTv (test code = 1742-6) 62 U/L 5-35 H AST(SGOT) (test code = 4880562701) 54 U/L 13-40 H eGFR (test code = 38491-5) 45.0 mL/min/1.73m2 CKD-EPI eGFR (2020). Assuming creatinine has been stable day-to-day for at least three months, the eGFR indicates Category G3a (45 - 59 mL/min/1.73 m2) Lab Interpretation (test code = 20932-0) [facility]normal [facility] 16:54:45* Test Item Value Reference Range Interpretation Comme nts LIPASE (test code = 7795187635) 39 U/L 0-220 Lab Interpretation (test cod e = 66284-0) Normal [facility] [id number] 03:30:00* Test Item Value Reference Range Interpretation [...] = POCGLU) 94 MG/DL 70-110 N URINALYSIS [id number] 03:16:00* Test Item Value Reference Range Interpretation [...] (test code = EDLEUK) Large Negative A [facility], [address] [place], [address], Hemoglobin A1c measurement device jaaau7885-01-83 14:58:00* Test Item Value Reference Range Interpretation Comme nts Hemoglobin A1c/Hemoglobin.to ayush in Blood (test code = 4548-4) 6.1 % 4.0-6.4 [facility]AG fxdojdrpak9883-12-37 00:00:00* Test Item Value Reference Range Interpretation Comme nts Hemoglobin A1c/Hemoglobin.to ayush in Blood (test code = 4548-4) 15.1 % 4.8-5.6 H estim. avg glu (EAG) (test c ode = estim. avg glu (EAG)) 387 mg/dL [facility]/Creatinine [Mass Ratio] in Cadis3128-24-83 00:00:00* Test Item Value Reference Range Interpretation Comme nts microalbumin random urine (test code = microalbumin random urine) 7 ug/mL creatinine random urine (jocelyne t code = creatinine random urine) 35.7 mg/dL 20.0-320.0 microalbumin/creatinine (random urine) ratio calculated (test code = microalbumin/creatinine (random urine) ratio calculated) 20 mcg/mg creat [facility]Com[facility] 2000 panel - Serum or Plasma 2022-04-08 00:00:00* Test Item Value Reference Range Interpretation Comme nts ALT (test code = ALT) 27 U/L [...] (test code = anion gap) 13 calc [facility] Center[facility]inal[facility] complete panel - [id number] 00:00:00* Test Item Value Reference Range Interpretation [...] examination (jocelyne t code = microscopic examination) [facility], kvafdsfdpeg9511-98-55 00:00:00* Test Item Value Reference Range Interpretation [...] comment comment (test code = comment) comment [facility] Auto Differential panel - Hquax4550-94-75 00:00:00 * Test Item Value Reference Range [...] (test code = baso#) 0.08 x10*3/?L 0.01-0.08 [facility] CenterThyroxine (T4) free [Mass/volume] in Serum or Plasma 2022-04-05 00:00:00* Test Item Value Reference Range Interpretation Comme [facility] T4 free (test code = T4 free) 1.10 NG/dL 0.70-1.48 [facility] CenterLipid 1996 panel - Serum or [id number] 00:00:00* Test Item Value Reference Range Interpretation [...] (test code = 2089-1) see comment <130 [facility] CenterHnvmxijq92-Bshoznuonxqglu D3+25-Hydroxyvitamin D2 [Mass/volume] in Serum or Fphsno8572-57-88 00:00:00* Test Item Value Reference Range Interpretation Comme [facility] vitamin D 25OH (test code = vitamin D 25OH) 19.2 NG/mL 30.0-96.0 L [facility] CenterThyrotropin [Units/volume] in Serum or Ctmrmz3384-79-59 00:00:00* Test Item Value Reference Range Interpretation Comme [facility] TSH (test code = TSH) 3.371 uIU/mL 0.350-4.940 [facility] CenterTriiodothyronine (T3) Free [Mass/volume] in Serum or Bwmvnz0882-41-07 00:00:00* Test Item Value Reference Range Interpretation Comme [facility] T3 free (test code = T3 free) 1.95 pg/mL 1.58-3.91 [facility] CenterHemoglobin A1c/Hemoglobin.total in Zkkxh8349-89-93 00:00:00* Test Item Value Reference Range Interpretation Comme [facility] Hemoglobin A1c/Hemoglobin.to ayush in Blood (test code = 4548-4) 13.8 % 1.0-5.7 H average blood glucose (calcu lation) (test code = average blood glucose (calculation)) 349 mg/dL [facility] CenterBacteria identified in Urine by Kttaxkl6975-46-28 00:00:00* Test Item Value Reference Range Interpretation Comme [facility] urine culture, routine (test code = urine culture, routine) final report A result 1 (test code = result 1) escherichia coli A antimicrobial susceptibility (test code = antimicrobial susceptibility) comment [facility] CenterUrinalysis macro (dipstick) panel - [id number] 17:24:00* Test Item Value Reference Range Interpretation Comme [facility] Interpretation UA test performed using: (test code = Interpretation UA test performed using:) Automated device/analyzer (51813,[employer]) Interpretation Color (test code = Interpretation Color) Yellow Interpretation Clarity (test code = Interpretation Clarity) Clear Interpretation Glucose (mg/dL) (test code = Interpretation Glucose (mg/dL)) 500 Interpretation Bilirubin (test code = Interpretation Bilirubin) Negative Interpretation Ketone (mg/dL) (test code = Interpretation Ketone (mg/dL)) 80 Interpretation Specific [place] (test code = Interpretation Specific [place]) 1.015 Interpretation Occult Blood (test code = Interpretation Occult Blood) Trace-Intact (or Trace Non-Hemolyzed) Interpretation pH (test code = Interpretation pH) 5 Interpretation Protein (test code = Interpretation Protein) Negative Interpretation Urobilinogen (test code = Interpretation Urobilinogen) 0.2 Interpretation Nitrites (test code = Interpretation Nitrites) Negative Interpretation Leukocytes (test code = Interpretation Leukocytes) Negative [facility] Center[facility]inal[facility] macro (dipstick) panel - Gjvsd7163-48-52 09:20:37* Test Item Value Reference Range Interpretation Comme nts Color Color (test code = Col or Color) yellow Color Appearance (test code = Color Appearance) clear Color Glucose (test code = C olor Glucose) negative Color Bilirubin (test code = Color Bilirubin) negative Color Ketones (test code = C olor Ketones) negative Color Specific [place] (test code = Color Specific [place]) 1.010 Color Blood (test code = Col or Blood) negative Color PH (test code = Color PH) 5.5 Color Protein (test code = C olor Protein) negative Color Urobilinogen (test cod e = Color Urobilinogen) 0.2 Color Nitrites (test code = Color Nitrites) negative Color Leukocytes (test code = Color Leukocytes) negative [facility] CenterGlucose [Mass/volume] in Capillary blcvz6882-55-48 08:44:39* Test Item Value Reference Range Interpretation Comme nts Blood Glucose: mg/dl (test c ode = Blood Glucose: mg/dl) 87 [facility] Consult Notes Date/Time Note Provider [...] daily. 90 tablet 3 blood sugar diagnostic (ONETOUCH ULTRA TEST) strip Use to test glucose [...] Left 06/26/2017 Surgeon: Jarred Jara MD; Location: [place] [facility] Location COLONOSCOPY Left 12/06/2020 Surgeon: Abdelrahman Madden MD; [facility] [place] COLPOSCOPY benign per pt. normal pap since ESOPHAGOGASTRODUODENOSCOPY N/A 06/27/2016 Surgeon: Jarred Jara MD; Location: [place] [facility] Location ESOPHAGOGASTRODUODENOSCOPY N/A 06/26/2017 Surgeon: Jarred Jara MD; Location: [place] [facility] Location ESOPHAGOGASTRODUODENOSCOPY Left 12/06/2020 Surgeon: Abdelrahman Madden MD; Location: [place] [facility] Location HYSTERECTOMY kept ovaries; dysmenorrhea TRIGGER FINGER RELEASE Left 05/27/2017 Surgeon: Prashnat El MD; Location: [place] [facility] Location TUBAL LIGATION Family History Problem Relation Age of Onset Stroke Father Hypertension Father Breast Cancer Mother late 50s Hypertension Mother Lung Cancer Mother Uterine Cancer Sister Cancer Maternal Grandfather throat Social History Socioeconomic History Marital status: Occupational History Occupation: [employer] Employer: [employer] Tobacco Use Smoking status: Every Day Packs/day: 0.50 Years: 30.00 Additional pack years: 0.00 Total pack years: 15.00 Types: Cigarettes Smokeless tobacco: Never Substance and Sexual Activity Alcohol use: No Drug use: No Sexual activity: Yes Partners: Male control/protection: Surgical Comment: 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 RL: 2601 AFC: 01274 ABDOMEN PELVIS WO CONTRAST Narrative: EXAM: CT [...] Tena MD Urology Resident Pager: please page human resources operations manager using [employer] Associated attestation - Antwan Warner MD - 06/02/2023 9:29 AM CDT I have reviewed Dr. Tena 's note. I agree with the documentation and plan Antwan Warner MD 06/02/2023 9:[address] [facility] - Health History and Physical Notes Date/Time [...] above All questions answered Carlos Gomes MD [facility] 2023-06-12 13:59:14 Patient seen and examined, agree with H&P, no interval changes. Surgeon: Rosey MAZA Date: 06/12/2023 Plan for R sided [facility] today with Dr. oGmes. Guera Hidalgo PGY2 Urology [facility] Associated attestation - Carlos Gomes MD - [...] of the lung bases. RL: 2601 AFC: 78728 ABDOMEN PELVIS WO CONTRAST Result Date: 06/01/2023 [...] Nuñez MD Urology Resident Pager: please page human resources operations manager using [employer] [facility] 2023-06-01 17:23:03 XpertMD History & Physical [...] to have nephrolithiasis, leukocytosis, possible pyelonephritis, and JUSTYNA. Therefore, she is getting admitted to medicine [...] by mouth at bedtime. BLOOD SUGAR DIAGNOSTIC (ONETOUCH ULTRA TEST) STRIP Use to test glucose [...] tablet by mouth daily with breakfast. LANCETS (ONETOUCH DELICA LANCETS) 30 GAUGE MISC Use to [...] Left 06/26/2017 Surgeon: Jarred Jara MD; Location: [place] [facility] Location COLONOSCOPY Left 12/06/2020 Surgeon: Abdelrahman Madden MD; Location: [place] [facility] Location COLPOSCOPY benign per pt. 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 METABOLIC PANEL (82302) Collection Time: 06/01/23 11:31 AM Result Value [...] of the lung bases. RL: 2601 AFC: 32753 ABDOMEN PELVIS WO CONTRAST Result Date: 06/01/2023 [...] Problem: Acute abdominal pain Active Problems: Pyelonephritis JUSTYNA (acute kidney injury) Nephrolithiasis Fatigue Anemia Elevated [...] appreciate recommendations. - Hold home losartan given JUSTYNA. Monitor vital signs and telemetry. - Restart home atorvastatin. Start SSI. Check hemoglobin A1c, lipid panel, TSH. - Restart home bupropion. - Restart home Protonix and Flomax. - Check a.m. labs, replete electrolytes if needed. Monitor kidney function. Monitor CBC. -As needed pain and nausea medications. Discussed the case with: [ ] investment consultant [x ] nursing staff [x ] patient/family [x] ED provider Calvin Nova MD XpertMD This note was created using a voice-recognition muck miner system. Incorrect words, phrases, or punctuation may have been missed during proofreading and need to be interpreted in the context. If an error is discovered when reviewing the document, please contact Dr. Nova directly for clarification. 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 Procedures: Ureteroscopy (CPT 56449) Retrograde pyelogram (CPT 22855 + modifier 26 to include professional component for interpretation) Cystoscopy with right ureteral stent placement (50226) Indications: 3mm right proximal ureteral stone, right [...] for a cystoscope and a 22cm 6fr Chinese double-J ureteral catheter without the string was [...] in good condition. Guera Hidalgo PGY2 Urology [facility] Associated attestation - Carlos Gomes MD - 06/12/2023 7:26 PM CDT I saw and examined the patient on 06/12/2023 and agree with the resident's note as written by Dr Hidalgo. I actively participated in the decision-making process. Please see the resident's note for additional details. I was present for the entire procedure. Carlos Gomes MD [facility] 2023-06-02 13:13:11 FULL OPERATIVE NOTE Date of [...] Procedures: Cystoscopy with right ureteral stent placement (98103) Retrograde pyelogram (CPT 22917 + modifier 26 to include professional component [...] resistance under fluoroscopic guidance. A 22cm 6.0 -Chinese double-J ureteral stent was placed into the [...] spasms Provisional plan for Right USM 06/13/2023 [facility] OR Carlos Gomes MD [facility]
[2024-02-23 09:16] LABS: Absolute Basophils 0.1 K/uL (0-0.5); Absolute Lymphocytes (CBC) 1.2 K/uL (0.7-4.9); Absolute Monocytes 0.8 K/uL (0.1-1.3); Absolute Neutrophil 10.5 K/uL (1.8-8.0); Basophils % 0.5 % (0-1.3); Eosinophils % 0.1 % (0-4.4); Hematocrit 38.7 % (36.0-45.0); Hemoglobin 12.9 g/dL (12.0-15.0); Lymphocytes % 9.5 % (15.3-44.8); MCHC 33.4 g/dL (32.0-36.0); MCV 92.9 fL (80-100); MPV 10.2 fL (7.6-11.3); Monocytes % 6.1 % (3.3-12.3); Neutrophils % 83.8 % (41.7-73.7); Nucleated RBC Absolute Count 0.1 (0-0); Nucleated Red Blood Cells % 0.4 % (0-0); Platelets 235 thou/uL (152-406); RBC Red Blood Cell Count 4.16 M/uL (3.86-4.86); Red Cell Distribution Width 12.7 % (12.1-15.2)
[2024-02-23 09:34] LABS: Albumin 3.7 g/dL (3.4-5.0); Anion Gap 7.3 mEq/L (5.0-15.0); Bilirubin Total 0.5 mg/dL (0.2-1.0); Globulin 3.7 g/dL (2.3-3.5); Potassium 4.3 mEq/L (3.5-5.1); Protein, Total 7.4 g/dL (6.4-8.2)
[2024-02-23] MEDS ORDERED: ONDANSETRON 4 MG/2 ML VIAL ONE (09:38)
[2024-02-23] MEDS ORDERED: NA CHLORIDE 0.9% 1,000 ML ONE (09:38)
[2024-02-23] MEDS ORDERED: KETOROLAC 30 MG/ML INJ ONE (09:38)
[2024-02-23 10:11] LABS: Specific Gravity 1.016 (1.005-1.030); Sqamous Epithelial <5 /HPF (None Seen); Urine Bacteria None Seen /HPF (<20); Urine Bilirubin NEGATIVE (Negative); Urine Blood Trace (Negative); Urine Clarity Clear (Clear); Urine Color Light-Yellow (Yellow); Urine Culture Reflex Order NOT NEEDED; Urine Glucose 3+ (Negative); Urine Ketones NEGATIVE (Negative); Urine Microscopic Reflex YN ORDER UMIC; Urine Nitrite NEGATIVE (Negative); Urine Protein NEGATIVE (Negative); Urine RBC 21-50 /HPF (None Seen); Urine Urobilinogen Normal (Normal); Urine WBC <5 /HPF (<5); Urine pH 6.5 (5.0-7.0)
--- NOTE | 2024-02-23 10:18 | RAD REPORT ---
EXAMINATION: CT ABDOMEN AND PELVIS WITH CONTRAST CLINICAL INDICATION: Abdominal pain. Right lower abdominal pain TECHNIQUE: CT abdomen and pelvis was performed, after the administration of 100 cc Isovue-300.. Sagit ayush and coronal reconstructions were obtained. One or more of the following dose reduction techniques were used: Automated exposure control, adjustment of the mA and kV according to patient si ze, and iterative reconstruction. Unless otherwise specified, incidental findings do not require dedicated imaging follow-up. [id number]. Oral contrast was not given which limits evaluation of bowel and appendix. COMPARISON: .None FINDINGS: Liver, spleen, pancreas, and adrenals appear unremarkable. Cholecystectomy. Tiny calculus left kidney. No hydronephrosis. Moderate right hydronephrosis. Enhancement of the wall of the right renal pelvis and right ureter. Ri ght perirenal and right ureteral stranding. A right ureteral calculus is not seen. Small renal cysts. Post surgical changes involve the bowel. No obstruction seen. Moderate amount stool throughout the co bruce. Hysterectomy. No adnexal mass. Avascular necrosis left femoral head. : IMPRESSION: Moderate right hydronephrosis. Enhancement of the right renal pelvis and right ureteral wall [facility] ascending urinary tract infection. A right ureteral calculus is not visualized although evaluation is somewhat limited as IV contrast was administered. Avascular necrosis left femoral head
[2024-02-23] MEDS ORDERED: MORPHINE 4 MG/ML SYR ONE (10:28)
[2024-02-23] MEDS ORDERED: TAMSULOSIN 0.4 MG SR CAP ONE (10:28)
--- NOTE | 2024-02-23 10:55 | ER ---
Nurse's Notes [facility] Name: Maritza Washington Age: 59 yrs Sex: Female : 1965 Arrival Date: 02/23/2024 Time: 08:33 Bed 5 Private MD: Diagnosis: Other hydronephrosis;Hematuria, unspecified;Nausea with vomiting, unspecified;Dorsalgia, unspecified Presentation: 02/22 08:48 Chief complaint: Patient states: RLQ pain that radiates towards R flank area with N/V ss that began last night at 2100. Coronavirus screen: Client denies travel out of the [place] in the last 14 days. Ebola Screen: Patient denies exposure to infectious person. Patient denies travel to an Ebola-affected area in the 21 days before illness onset. Initial Sepsis Screen: Does the patient meet any 2 criteria? No. Patient's initial sepsis screen is negative. Does the patient have a suspected source of infection? No. Patient's initial sepsis screen is negative. Risk Assessment: Do you want to hurt yourself or someone else? Patient reports no desire to harm self or others. Onset of symptoms was February 21, 2021. 08:48 Method Of Arrival: Ambulatory ss 08:48 Acuity: PAYAM 3 ss Historical: - Allergies: 08:49 Sulfa (Sulfonamide Antibiotics); ss 08:49 Vicodin; ss - PMHx: 08:49 Colorectal CA (remission); ss - PSHx: 08:49 colon resection; Cholecystectomy; ss - Immunization history:: Adult Immunizations up to date. - Infectious Disease History:: Denies. - Social history:: Smoking status: Patient denies any tobacco usage or history of. Screenin:48 [facility] ED Fall Risk Assessment (Adult) History of falling in the last 3 months, ll1 including since admission No falls in past 3 months (0 pts) Confusion or Disorientation No (0 pts) Intoxicated or Sedated No (0 pts) Impaired Gait No (0 pts) Mobility Assist Device Used No (0 pt) Altered Elimination No (0 pt) Score/Fall Risk Level 0 - 2 = Low Risk Maintained a safe environment, Hourly rounding (assess needs \T\ fall precautionary measures) done. Abuse screen: Denies threats or abuse. Nutritional screening: No deficits noted. Tuberculosis screening: No symptoms or risk factors identified. Assessment: 09:47 General: Appears uncomfortable, Behavior is calm, cooperative, appropriate for age. ll1 Pain: Complains of pain in R flank Pain currently is 10 out of 10 on a pain scale. Quality of pain is described as aching, sharp. GI: Reports nausea, vomiting. : Reports pain in right flank(s). 10:45 Reassessment: No changes from previously documented assessment. medicated by BETH Carpenter. ll1 11:08 Neuro: Level of Consciousness is awake, alert, obeys commands. ll1 Vital Signs: 08:48 BP 132 / 91; Pulse 86; Resp 14; Temp 98.8(TE); Pulse Ox 98% on R/A; Weight 54.43 kg; ss Height 4 ft. 11 in. ; Pain 10/10; 11:08 BP 136 / 74; Pulse 78; Resp 15; Pulse Ox 98% ; Pain 4/10; ll1 08:48 Body Mass Index 24.24 (54.43 kg, 149.86 cm) ss 08:48 Pain Scale: Adult ss 11:08 Pain Scale: Adult ll1 ED Course: 08:37 Patient arrived in ED. im 08:44 Urbano Arambula PA is PHCP. cp 08:45 Trudi Franklin MD is Attending Physician. cp 08:49 Triage completed. ss 08:49 Arm band placed on left wrist. ss 09:00 Initial lab(s) drawn, by me, sent to lab. Missed attempt(s): 22 gauge in left forearm. ss Bleeding controlled, band aid applied, catheter tip intact. 09:33 Inserted saline lock: 20 gauge in right forearm, using aseptic technique. Flushed with bc6 10 mL NS. 09:37 Kevin Montero, BETH is Primary Nurse. ll1 09:46 Urinalysis w/ reflexes Sent. ll1 09:48 Patient has correct armband on for positive identification. Bed in low position. ll1 Provided Education on: ER procedures and process. Cardiac monitoring not applicable on this patient. 09:49 CT Abd/Pelvis - IV Contrast Only In Process Unspecified. EDMS 11:08 No provider procedures requiring assistance completed. IV discontinued, intact, ll1 bleeding controlled, No redness/swelling at site. Pressure dressing applied. Administered Medications: 09:46 Drug: Ondansetron IVP 4 mg IVP once; over 2 minutes Route: IVP; Site: right wrist; ll1 11:09 Follow up: Response: No adverse reaction; Nausea is decreased ll1 09:46 Drug: NS 0.9% IV 1000 ml IV at 1 bolus Per protocol; to be given as a bolus over 60 ll1 minutes Route: IV; Rate: 1 bolus; Site: right wrist; 11:09 Follow up: Response: No adverse reaction; IV Status: Completed infusion; IV Intake: ll1 800ml 09:46 Drug: Ketorolac IVP 15 mg IVP once {Note: pain 12/24.} Route: IVP; Site: right wrist; ll1 11:09 Follow up: Response: No adverse reaction; Pain is decreased ll1 10:42 Drug: morphine IVP or IV 4 mg IVP once over 4 mins Route: IVP; Infused Over: 4 mins; bp Site: right antecubital; 11:09 Follow up: Response: No adverse reaction; Pain is decreased; RASS: Alert and Calm (0) ll1 10:43 Drug: Flomax PO 0.4 mg PO once Route: PO; bp 11:09 Follow up: Response: No adverse reaction ll1 Medication: 09:48 VIS not applicable for this client. ll1 Intake: 11:09 IV: 800ml; Total: 800ml. 1 Outcome: 10:54 Discharge ordered by MD. cp 11:08 Discharged to home ambulatory, [facility] 11:08 Condition: stable 11:08 Discharge instructions given to patient, Instructed on discharge instructions, follow up and referral plans. medication usage, Demonstrated understanding of instructions, follow-up care, medications, Prescriptions given X 3, 11:09 Patient left the ED. 1 Signatures: Dispatcher [employer] EDMS Orquidea Lindquist RN RN Urbano Blanc PA PA cp Peltier, Brian, RN RN bp Kevin Montero RN RN 1 Arabella Goff [facility] Janelle Mckeon
--- NOTE | 2024-02-23 10:55 | EDPHYS ---
Physician Documentation [facility] Name: Maritza Washington Age: 59 yrs Sex: Female : 1965 Arrival Date: 02/23/2024 Time: 08:33 Bed 5 Private MD: ED Physician Trudi Franklin HPI: 02/22 08:55 This 59 yrs old Female presents to ER via Ambulatory with complaints of Right Lower cp Abdomen Pain, Vomiting. Historical: - Allergies: 08:49 Sulfa (Sulfonamide Antibiotics); ss 08:49 Vicodin; ss - PMHx: 08:49 Colorectal CA (remission); ss - PSHx: 08:49 colon resection; Cholecystectomy; ss - Immunization history:: Adult Immunizations up to date. - Infectious Disease History:: Denies. - Social history:: Smoking status: Patient denies any tobacco usage or history of. ROS: 09:00 Constitutional: Negative for body aches, chills, fever, poor PO intake, cp 09:00 Cardiovascular: Negative for chest pain, palpitations, cp 09:00 Respiratory: Negative for cough, shortness of breath, wheezing, 09:00 Abdomen/GI: Positive for abdominal pain, nausea and vomiting, Negative for diarrhea, constipation, anorexia, black/tarry stool, rectal bleeding, Vital Signs: 08:48 BP 132 / 91; Pulse 86; Resp 14; Temp 98.8(TE); Pulse Ox 98% on R/A; Weight 54.43 kg; ss Height 4 ft. 11 in. ; Pain 10/10; 11:08 BP 136 / 74; Pulse 78; Resp 15; Pulse Ox 98% ; Pain 4/10; ll1 08:48 Body Mass Index 24.24 (54.43 kg, 149.86 cm) ss 08:48 Pain Scale: Adult ss 11:08 Pain Scale: Adult ll1 MDM: 08:45 Medical Screening Exam initiated cp 02/22 08:52 Order name: CBC with Diff cp 02/22 10:16 Interpretation: Normal except: WBC 12.50; BALTAZAR% 83.8; LYM% 9.5; NEUT A 10.5. cp 02/22 08:52 Order name: CMP; Complete Time: 10:16 cp 02/22 10:17 Interpretation: Normal except: GLUC 228; BUN 30; CRE 1.36; GFR 45; ALK 128; CA 10.3; cp GLOB 3.7; A/G 1.0. 02/22 08:52 Order name: Lipase; Complete Time: 10:16 cp 02/22 10:18 Interpretation: Reviewed. 02/22 08:52 Order name: Urinalysis w/ reflexes; Complete Time: 10:16 cp 02/22 10:17 Interpretation: Normal except: UGLUC 3+; UBLD Trace; URBC 21-50. 02/22 08:58 Order name: CT Abd/Pelvis - IV Contrast Only; Complete Time: 10:18 cp 02/22 08:52 Order name: IV Saline Lock; Complete Time: 09:33 cp 02/22 08:52 Order name: Labs collected and sent; Complete Time: 09:36 cp Administered Medications: 09:46 Drug: Ondansetron IVP 4 mg IVP once; over 2 minutes Route: IVP; Site: right wrist; ll1 11:09 Follow up: Response: No adverse reaction; Nausea is decreased ll1 09:46 Drug: NS 0.9% IV 1000 ml IV at 1 bolus Per protocol; to be given as a bolus over 60 ll1 minutes Route: IV; Rate: 1 bolus; Site: right wrist; 11:09 Follow up: Response: No adverse reaction; IV Status: Completed infusion; IV Intake: ll1 800ml 09:46 Drug: Ketorolac IVP 15 mg IVP once {Note: pain 10/10.} Route: IVP; Site: right wrist; ll1 11:09 Follow up: Response: No adverse reaction; Pain is decreased ll1 10:42 Drug: morphine IVP or IV 4 mg IVP once over 4 mins Route: IVP; Infused Over: 4 mins; bp Site: right antecubital; 11:09 Follow up: Response: No adverse reaction; Pain is decreased; RASS: Alert and Calm (0) ll1 10:43 Drug: Flomax PO 0.4 mg PO once Route: PO; bp 11:09 Follow up: Response: No adverse reaction ll1 Disposition Summary: 02/23/24 10:54 Discharge Ordered Notes: Location: Home cp Problem: new cp Symptoms: have improved cp Condition: Stable cp Diagnosis - Other hydronephrosis cp - Hematuria, unspecified cp - Nausea with vomiting, unspecified cp - Dorsalgia, unspecified cp Followup: cp - With: Private Physician - When: 2 - 3 days - Reason: Recheck today's complaints Discharge Instructions: - Discharge Summary Sheet cp - Acute Back Pain, Adult cp - Hematuria, Adult cp - Nausea and Vomiting, Adult cp - Hydronephrosis cp Forms: - Medication Reconciliation Form cp - Antibiotic Education cp - Prescription Opioid Use cp - Patient Portal Instructions cp - Leadership Thank You Letter cp - Work release form ll1 Prescriptions: - Flomax 0.4 mg Oral capsule - take 1 capsule ORAL route once for 5 days; 5 capsule; Refills: 0, Product cp Selection Permitted - Zofran 4 mg Oral Tablet - take 1 tablet ORAL route every 12 hours As needed; 20 tablet; Refills: 0, cp Product Selection Permitted - Tramadol 50 mg Oral Tablet - take 1 tablet ORAL route every 8 hours as needed; 12 tablet; Refills: 0, cp Product Selection Permitted Signatures: Dispatcher [employer] Orquidea Peoples RN RN ss Urbano Arambula PA PA cp Jayden Kerr RN RN bp Kevin Montero RN RN ll1
[2024-02-23 11:35] LABS: Blood Morphology Comment NOT SEEN (NOT SEEN); Platelet Estimate ADEQ; Platelets Clumped FEW PRESENT; White Blood Cell Scan OK (OK)
[2024-02-23 14:57] VITALS: TEMP 98.8; O2SAT 98
[2024-02-23 15:02] VITALS: BP 136/74
== END 2024-02-23 11:09 | disposition home or self-care (01) ==
LOC: ER 08:33
DX: N13.39 Other hydronephrosis (principal); R31.9 Hematuria, unspecified; M54.9 Dorsalgia, unspecified; Z85.038 Personal history of other malignant neoplasm of large intestine; Z85.048 Personal history of other malignant neoplasm of rectum, rectosigmoid junction, and anus
CPT/HCPCS: 85025; 81001; 36415; 83690; 80053; 74177; 99284; Q9967; J2405; J7030

== ENCOUNTER 2024-03-22 21:15 | Emergency (ER) | payer OTHER ==
--- OUTSIDE RECORDS SUMMARY | 2024-03-22 21:22 | XMS REPORT | Continuity of Care Document ---
Author Name Unknown Address [address] [facility] [address] [place] [address] [facility] Address 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 Role Phone MARTHA DANGELO Primary Care Physician Unavailab MIKAYLA Adrian Attending Clinician Unavailable Cristian Laguna Attending Clinician Unavailable CARLOS GOMES Attending Clinician Unavailable SOLO DIANE Attending Clinician Unavailable NICOLETTE BLAS Attending Clinician Unavailable Martha Connors Attending Clinician [phone] Nicolette Chakraborty Attending Clinician [phone] Lab, Ang - Db Attending Clinician Unavailable Magdalena Wise PA-C Attending Clinician [phone] MAGDALENA WISE Attending Clinician Unavailable DARBY BROTHERS Attending Clinician UnavailDARBY Buckley Attending Clinician Unavailrodríguez e Doctor Unassigned, Macclenny Attending Clinician U MARTHA Kwon Attending Clinician Unavailable CHITRA SUÁREZ Attending Clinician Unavailable Keisha Beckman RN Attending Clinician Unavaila ble UNKNOWN, ATTENDING Attending Clinician Unavailab CLARIBEL Andrews Attending Clinician Unavailable CLARIBEL BLACK Attending Clinician Unavailable Doctor Unassigned, Macclenny Attending Clinician U SAMUEL Childress Attending Clinician Unavailable Ronak MAZA, Madeline Attending Clinician [phone] MADELINE SIMONS Attending Clinician Unavailable Nurse, [facility] Attending Clinician Un available Unknown, Attending Attending Clinician Unavailab Yuniel Forman OD Attending Clinician [phone] Antolin COATER CARBON PAPERMartha Doll Attending Clinician [phone] Darby Brothers MD Attending Clinician [phone] Shayla, Abel [facility]ott Attending Clinician Unavailable LUDMILA BEVERLY Attending Clinician Unavailab rosa Beverly COATER CARBON PAPER, Ludmila Sow Attending Clinician [phone] Ebkeven HANEYPTae Attending Clinician [phone] JOSE GLEASON Attending Clinician Unavailable Jose Gleason MD Attending Clinician [phone] See Burch Attending Clinician [phone] SEE MIN Attending Clinician Unavailable YUNIEL CALDERON Attending Clinician Unavailabl Parker Nelson Attending Clinician Unavailable EDDOC, GENERIC FOR ED Attending Clinician Unava ilCarlos Stevens MD Attending Clinician [phone] BOB MIN Attending Clinician Unavailable Mikayla Florez MD Attending Clinician [phone] BACILIO BENTLEY Attending Clinician Unavail able Caitlin Cuevas RN Attending Clinician Unavail able YUNIEL THURMAN Attending Clinician Unavail able Armando Attending Clinician Unavaila NEO Bosch Attending Clinician UnavailPia Bess RN Attending Clinician Unavailable Jenaro Padilla MD Attending Clinician [phone] Breana Calhoun RN Attending Clinician Unava ilDAJA Jackson Attending Clinician Unavailable Mark KAMARA, Jase Attending Clinician [phone] Bud CAMPOS, Neo Hwang Attending Clinician Unavail able JOSE SANCHEZ Attending Clinician Unavailable JOSE SANCHEZ Attending Clinician Unavailable Rc Peng DO Attending Clinician [phone] Calvin Nova MD Attending Clinician [phone] Edwin Mathews Attending Clinician Unavailable Porfirio Attending Clinician Unavailable Jovana Weber Attending Clinician Unavailable AISHA CHÁVEZ Attending Clinician Unavailable Jayden Knight MD Attending Clinician [phone] Aisha Chávez MD Attending Clinician [phone] FRANCISCO GAMING Attending Clinician Unavailable JOSE BACK Attending Clinician Unavailable Francisco Gaming PA-C Attending Clinician [phone] [facility] Attending Clinician + [phone] Vtc-Lab Attending Clinician Unavailable Abdelrahman Madden MD Attending Clinician Unavail able Marianne MAZA, Samuel King Attending Clinician [phone] SAMUEL GUZMÁN Attending Clinician Unavaila ble Only, Lcc Test Attending Clinician Unavailable Jose Back MD Attending Clinician [phone] Ambika Masters MD Attending Clinician [phone] Giovanni Levine MD Attending Clinician [phone] Yareli Haynes RN Attending Clinician Unavailable GINI WILLARD Attending Clinician Unavailable GLENNY ARREOLA Attending Clinician Unavail able MIKAYLA FLOREZ Admitting Clinician Unavailable Jovana Weber Admitting Clinician Unavailable Armando Admitting Clinician Unavaila CARLOS Moura Admitting Clinician Unavailable Rosey MAZA, Carlos Admitting Clinician [phone] CALVIN NOVA Admitting Clinician Unavailable Porfirio Admitting Clinician Unavailable JAYDEN KNIGHT Admitting Clinician Unavailable Payers Payer Name Policy Type Policy Number Effective Date Expirati on Date Source HIM [facility] [id number] 2023 00:00:00 [facility] EPO [id number] 2023 00:00:[place] [id number] 2023 00:00:00 [place] [id number] 2022 00:00:00 2024 00:00:00 [employer]IG[employer] - [place] (EPO) [id number] 2022 00:00:00 2023 00:00:00 [place] [id number] AETNA [id number] 2021 00:00:00 AETNA - CHOICE (POS II) [id number] 2021 00:00:00 Problems Condition Name Condition Details Condition Category Status Onset Date Resolution Date Last Treatment Date Treating Clinician Comments Source Cervicalgi a Cervicalgi a Disease Active 2023-03 0-25 00:00: 00 [facility] Right upper quadrant pain Right upper quadrant pain Disease Active 2023-03 0-25 00:00: 00 [facility] Epigastric pain Epigastric pain Disease Active 2023-03 0-25 00:00: 00 [facility] Nausea Nausea Disease Active 2023-03 0-25 00:00: 00 [facility] Hx of urinary stone Hx of urinary stone Disease Active 2023-03 0-25 00:00: 00 [facility] Costochond ritis, acute Costochond ritis, acute Disease Active 6-26 00:00: 00 [facility] Chronic right shoulder pain Chronic right shoulder pain Disease Active 6-26 00:00: 00 [facility] Raccoon bite, subsequent encounter Raccoon bite, subsequent encounter Disease Active 6-26 00:00: 00 [facility] Encounter for repeat administra tion of rabies vaccinatio n Encounter for repeat administra tion of rabies vaccinatio n Disease Active 6-25 00:00: 00 [facility] Flank pain Flank pain Disease Active 4-03 00:00: 00 [facility] Acute abdominal pain Acute abdominal pain Disease Active 3-17 00:00: 00 [facility] HLD (hyperlipi demia) HLD (hyperlipi demia) Disease Active 317 00:00: 00 [facility] Anxiety Anxiety Disease Active 317 00:00: 00 [facility] Pyelonephr itis Pyelonephr itis Disease Active 05-31 00:00: 00 [facility] GERD (gastroeso phageal reflux disease) GERD (gastroeso phageal reflux disease) Disease Active 17 00:00: 00 [facility] JUSTYNA (acute kidney injury) JUSTYNA (acute kidney injury) Disease Active 05-31 00:00: 00 [facility] Nephrolith iasis Nephrolith iasis Disease Active 05-31 00:00: 00 [facility] Type 2 diabetes mellitus Type 2 diabetes mellitus Disease Active 05-31 00:00: 00 [facility] HTN (hypertens ion) HTN (hypertens ion) Disease Active 05-31 00:00: 00 [facility] Leukocytos is Leukocytos is Disease Active 05-31 00:00: 00 [facility] Right ureteral stone Right ureteral stone Disease Active 05-31 00:00: 00 [facility] JUSTYNA (acute kidney injury) JUSTYNA (acute kidney injury) Disease Active 05-31 00:00: 00 [facility] History of alcoholism History of Alcoholism Problem Active 05-03 00:00: 00 [facility] Mehta's esophagus Mehta's Esophagus Problem Active 2022-03 00:00: 00 [facility] History of malignant neoplasm of colon History of Malignant Neoplasm of Colon Problem Active 2022-03 00:00: 00 [facility] Tobacco user Tobacco User Problem Active 2022-03 00:00: 00 [facility] Multiple joint pain Multiple Joint Pain Problem Active 04-25 00:00: 00 [facility] Diabetes mellitus Diabetes Mellitus Problem Active 03-22 00:00: 00 [facility] Hyperlipid emia Hyperlipid emia Problem Active 03-22 00:00: 00 [facility] Anxiety Anxiety Problem Active 03-22 00:00: 00 [facility] Essential hypertensi on Essential Hypertensi on Problem Active 03-22 00:00: 00 [facility] Dysphagia, pharyngoes ophageal phase Dysphagia, pharyngoes ophageal phase Disease Active 12-04 00:00: 00 Overview: Formattin g of this note might be different from the original. Added automatic ally from request for surgery [id number] [facility] Globus sensation Globus sensation Disease Active 12-04 00:00: 00 Overview: Formattin g of this note might be different from the original. Added automatic ally from request for surgery [id number] [facility] Thrush Thrush Disease Active 12-04 00:00: 00 Overview: Formattin g of this note might be different from the original. Added automatic ally from request for surgery [id number] [facility] Rectal cancer Rectal cancer Disease Active 06-13 00:00: 00 Overview: Formattin g of this note might be different from the original. Added automatic ally from request for surgery [id number] [facility] History of colon cancer History of colon cancer Disease Active 06-13 00:00: 00 Overview: Formattin g of this note might be different from the original. Added automatic ally from request for surgery [id number] [facility] Trigger middle finger of left hand Trigger middle finger of left hand Disease Active 05 00:00: 00 [facility] GERD with esophagiti s GERD with esophagiti s Disease Recurre nce 1-03 00:00: 00 [facility] Tobacco dependence Tobacco dependence Disease Recurre nce 4-06 00:00: 00 [facility] Vomiting Vomiting Disease Active 2-13 00:00: 00 [facility] Elevated LFTs Elevated LFTs Disease Active 6 00:00: 00 [facility] Fatigue Fatigue Disease Active 09-12 00:00: 00 [facility] SBO (small bowel obstructio n) SBO (small bowel obstructio n) Disease Active 09-12 00:00: 00 [facility] Anemia Anemia Disease Active 09-12 00:00: 00 [facility] Nasal congestion Nasal congestion Disease Active 09-12 00:00: 00 [facility] Colon cancer Colon cancer Disease Recurre nce 09-12 00:00: 00 [facility] Preseptal cellulitis of right lower eyelid Preseptal cellulitis of right lower eyelid Disease Resolve d 2017-03 00:00: 00 2023-06-19 00:00:00 2023-06-19 14:56:12 [facility] COPD (chronic obstructiv e pulmonary disease) COPD (chronic obstructiv e pulmonary disease) Disease Resolve d 04-18 00:00: 00 2018-01-06 00:00:00 2018-01-06 14:34:23 [facility] Allergies, Adverse Reactions, Alerts Allergy Name Allergy Type Status Severity Reaction(s) Onset Date Inactive Date Treating Clinician Comments Source Sulfa (Sulfona mide Antibiot ics) DA Active [place] [facility] 08-04 00:00: 00 [facility] hydrocod one bit DA Active [place]CH[place], RASH 08-04 00:00: 00 [facility] SULFA (SULFONA MIDE ANTIBIOT ICS) Drug Class Active N/V 05-13 00:00: 00 [facility] HYDROCOD ONE-ACET AMINOPHE N DRUG Active Med ITCHING 05-13 00:00: 00 [facility] Sulfa (Sulfona mide Antibiot ics) Propensi ty to adverse reaction s Active Nausea and/or Vomiting 05-13 00:00: 00 [facility] Sulfa (Sulfona mide Antibiot ics) Propensi ty to adverse reaction s Active Nausea and/or Vomiting 05-13 00:00: 00 [facility] Hydrocod one-Acet aminophe n Propensi ty to adverse reaction s Active Itching 05-13 00:00: 00 [facility] Hydrocod one-Acet aminophe n Drug Allergy Active Rash 05-13 00:00: 00 [facility] hydrocod one bit DA Active [place], RASH 11-07 00:00: 00 [facility] Sulfa (Sulfona mide Antibiot ics) DA Active [place] [facility] REACTION 11-07 00:00: 00 [facility] VICODIN Allergy to substanc e Active Mild to moderate Rash [facility] SULFA (SULFONA MIDE ANTIBIOT ICS) Allergy to substanc e Active [facility] Family History Family Member Diagnosis Comments Start Date Stop Date Sourc e [facility] St[facility] Maternal grandfather Cancer [facility] Natural mother Breast Cancer [facility] Natural [facility] Hy[facility] Natural mother Lung [facility] Natural sister Uterine Cancer [facility] Social History Social Habit Start Date Stop Date Quantity Comments Source Sexual orientation [facility] History of tobacco use Cigarette Smoker [facility] Alcoholic beverage intake 2024-03-16 00:00:00 2024-03-16 00:00:00 Current non-drinker of alcohol (finding) [facility] Cigarettes smoked current (pack per day) - Reported 2023-09-05 00:00:00 2023-09-05 00:00:00 [facility] Cigarette pack-years 2023-09-05 00:00:00 2023-09-05 00:00:00 [facility] Tobacco use and exposure 2023-09-05 00:00:00 2023-09-05 00:00:00 Smokeless tobacco non-user [facility] History of Social function 2023-06-12 00:00:00 2023-06-12 00:00:00 [facility] Alcohol intake 2023-06-03 00:00:00 2023-06-03 00:00:00 Current non-drinker of alcohol (finding) [facility] Exposure to SARS-CoV-2 (event) 2021-09-16 00:00:00 2021-09-26 22:48:00 Not sure [facility] Sex assigned at 1965 00:00:00 1965 00:00:00 [facility] Smoking Status Start Date Stop Date Source Heavy Tobacco Smoker [facility] Smokes tobacco daily 2023-09-05 00:00:00 [facility] Medications Ordered Medication Name Filled Medication Name Start Date Stop Date Current Medication? Ordering Clinician Indication Dosage Frequency Signature (SIG) Comments Components Source metFORMIN 1,000 mg tablet 2023-03 00:00: 00 Yes [id number] 1000mg Take 1 tablet by mouth in the morning and 1 tablet in the evening. Take with meals. [facility] lisinopriL 5 mg tablet 2023-03 00:00: 00 Yes [id number] 5mg Take 1 tablet by mouth in the morning. [facility] gabapentin 300 mg capsule 2023-03 00:00: 00 Yes [id number] 300mg Take 1 capsule by mouth in the morning and 1 capsule at noon and 1 capsule in the evening. [facility] traMADoL 50 mg tablet 2023-03 00:00: 00 03-24 05:59 :00 Yes [id number] 50mg Take 1 tablet by mouth every 6 (six) hours as needed for Pain (scale 7-10) for up to 7 days. Indication s: acute pain [facility] naproxen 500 mg tablet 2023-03 00:00: 00 Yes [id number] 500mg Take 1 tablet by mouth in the morning and 1 tablet in the evening. Take with meals. [facility] levothyroxi ne 75 mcg tablet 2023-03 00:00: 00 Yes [id number] 75ug Take 1 tablet by mouth every morning. [facility] methocarbam oL 500 mg tablet 2023-03 0-25 00:00: 00 Yes [id number] 500mg Take 1 tablet by mouth 4 (four) times daily. [facility] meloxicam 15 mg tablet 12-08 00:00: 00 01-08 00:00 :00 No [id number] 15mg Take 1 tablet by mouth in the morning. [facility] triamcinolo ne acetonide (KENALOG) injection 16 mg 09-10 14:45: 00 09-10 13:52 :00 No [id number] 16mg 16 mg, Intramuscu lar, ONCE, 1 dose, On Fri09/11/23 at 0945, Routine [facility] Blood-Gluco se Meter (GLUCOCARD SHINE METER) [facility] 09-09 00:00: 00 Yes [id number] 00 Use as directed [facility] lancets (TECHLITE LANCETS) 28 gauge [facility] 09-09 00:00: 00 Yes [id number] 00 Check FASTING BLOOD SUGAR DAILY [facility] blood sugar diagnostic (GLUCOCARD SHINE TEST STRIPS) strip 09-09 00:00: 00 Yes [id number] 00 Check fasting BLOOD SUGAR DAILY [facility] levothyroxi ne 75 mcg tablet 09-09 00:00: 00 01-14 00:00 :00 No [id number] 75ug Take 1 tablet by mouth every morning. [facility] meloxicam 15 mg tablet 09-09 00:00: 00 12-08 00:00 :00 No [id number] 15mg Take 1 tablet by mouth in the morning. [facility] mupirocin 2 % ointment 09-04 00:00: 00 Yes [id number] Apply to area(s) 3 (three) times daily. [facility] rabies immune globulin (PF) (HYPERRAB (PF)) injection 1,044 Units 09-02 01:30: 00 09-02 01:21 :00 No 20U/kg 1,044 Units (20 Units/kg ?52.2 kg), Intramuscu lar, ONCE, 1 dose, On Fri09/02/23 at 2030, Routine [facility] ketorolac 10 mg tablet 18 00:00: 00 01-08 00:00 :00 No [id number] 10mg Take 1 tablet by mouth every 6 (six) hours as needed for Pain (scale 4-6) or Pain (scale 7-10). [facility] amoxicillin -clavulanat e 875-125 mg per tablet 09-01 00:00: 00 09-12 04:59 :00 No [id number] 1{tbl} Take 1 tablet by mouth every 12 (twelve) hours for 10 days. [facility] mupirocin 2 % cream 09-01 00:00: 00 09-04 00:00 :00 No [id number] Apply to area(s) 3 (three) times daily. [facility] traMADoL 50 mg tablet 08-24 00:00: 00 08-27 04:59 :00 No [id number] 50mg Take 1 tablet by mouth every 8 (eight) hours as needed for Pain (scale 4-6) for up to 2 days. Indication s: acute pain [facility] simethicone 80 mg chewable tablet 06-18 10:24: 48 Yes Take 80 mg as needed by oral route. [facility] ondansetron 4 mg disintegrat ing tablet 06-18 10:24: 48 Yes ondansetro n 4 mg disintegra ting tablet [facility] calcium carbonate (CALCIUM 500 ORAL) 06-18 10:19: 58 Yes Take by mouth. [facility] gabapentin 300 mg capsule 06-16 00:00: 00 07-29 04:59 :00 No [id number] 300mg Take 1 capsule by mouth in the morning and 1 capsule at noon and 1 capsule in the evening. Do all this for 42 days. [facility] lactated ringers IV infusion 1,000 mL 06-11 23:15: 00 Yes 1000mL at 75 mL/hr, 1,000 mL, IV Infusion, CONTINUOUS , Starting on Nalini 06/12/23 at 1815, Until Discontinu ed, Routine, PACU [facility] morpHINE (2 mg/mL) injection 2 mg 06-11 23:06: 39 Yes 2mg 2 mg, Slow IV Push, Q5MIN PRN, 3 doses, Starting on Nalini 06/12/23 at 1806, Until Discontinu ed, Routine, Pain (scale 4-6), PACU [facility] morpHINE (4 mg/mL) injection 4 mg 06-11 23:06: 39 Yes 4mg 4 mg, Slow IV Push, [id number], 3 doses, Starting on Nalini 06/12/23 at 1806, Until Discontinu ed, Routine, Pain (scale 7-10), PACU [facility] hydralAZINE (APRESOLINE ) injection 10 mg 06-11 23:06: 39 Yes 10mg 10 mg, Slow IV Push, Q20MIN PRN, 2 doses, Starting on Nalini 06/12/23 at 1806, Until Discontinu ed, Routine, Other, SBP > 170mmHg or DBP > 90mmHg, PACU [facility] labetaloL (NORMODYNE) injection 10 mg 06-11 23:06: 39 Yes 10mg 10 mg, Slow IV Push, Q15MIN PRN, 2 doses, Starting on Nalini 06/12/23 at 1806, Until Discontinu ed, Routine, SBP greater than 170mmHg or DBP greater than 90mmHg., PACU [facility] FENTanyl PF (SUBLIMAZE (PF)) injection 50 mcg 06-11 23:06: 39 Yes 50ug 50 mcg, Slow IV Push, Q5MIN PRN, 4 doses, Starting on Nalini 06/12/23 at 1806, Until Discontinu ed, Routine, Pain (scale 7-10), PACU [facility] FENTanyl PF (SUBLIMAZE (PF)) injection 25 mcg 06-11 23:06: 39 Yes 25ug 25 mcg, Slow IV Push, Q5MIN PRN, 4 doses, Starting on Nalini 06/12/23 at 1806, Until Discontinu ed, Routine, Pain (scale 4-6), PACU [facility] proMETHazin e (PHENERGAN) 6.25 mg in NaCl 0.9% (NS) 50 mL piggyback 06-11 23:06: 39 Yes 6.25mg 6.25 mg, IV Piggyback, at 200 mL/hr Administer over 15 Minutes, Q15MIN PRN, 4 doses, Starting on Nalini 06/12/23 at 1806, Until Discontinu ed, Routine, Nausea and Vomiting (N/V), If unresponsi ve to first choice antiemetic , PACU [facility] ondansetron (ZOFRAN (PF)) injection 4 mg 06-11 23:06: 39 Yes 4mg 4 mg, Slow IV Push, PRN, 1 dose, Starting on Nalini 06/12/23 at 1806, Until Discontinu ed, Routine, Nausea and Vomiting (N/V), PACU [facility] sodium chloride 0.9 % irrigation solution 06-11 22:48: 00 06-11 23:14 :06 No PRN, Starting on Nalini 06/12/23 at 1748, Until Nalini 06/12/23 at 1814, Intra-op [facility] iohexoL (OMNIPAQUE 300-50 mL)) injection 06-11 21:58: 00 06-11 23:14 :06 No PRN, Starting on Nalini 06/12/23 at 1658, Until Nalini 06/12/23 at 1814, Routine, Intra-op [facility] morpHINE (4 mg/mL) injection 2 mg 06-11 18:46: 12 06-11 23:14 :06 No 2mg 2 mg, Slow IV Push, Q15MIN PRN, 2 doses, Starting on Nalini 06/12/23 at 1346, Until Nalini 06/12/23 at 1814, Routine, Pain (scale 4-6), DSU Pre-op [facility] ketorolac (TORADOL) injection 30 mg 06-11 18:45: 00 06-11 19:08 :00 No 30mg 30 mg, Slow IV Push, ONCE, 1 dose, On Nalini 06/12/23 at 1400, Routine, DSU Pre-op [facility] lactated ringers IV infusion 1,000 mL 06-11 18:15: 00 06-11 18:33 :00 No 1000mL at 42 mL/hr, 1,000 mL, IV Infusion, ONCE, 1 dose, On Nalini 06/12/23 at 1315, Routine, DSU Pre-op [facility] tamsulosin (FLOMAX) 0.4 mg 24 hr capsule 06-11 00:00: 00 01-08 00:00 :00 No [id number] .4mg Take 1 capsule by mouth in the morning. [facility] oxyBUTYnin chloride 5 mg tablet 06-11 00:00: 00 01-08 00:00 :00 No [id number] 5mg Take 1 tablet by mouth in the morning and 1 tablet in the evening. [facility] cephALEXin 250 mg capsule 06-11 00:00: 00 06-17 04:59 :00 No [id number] 500mg Take 2 capsules by mouth every 12 (twelve) hours for 5 days. [facility] ketorolac (TORADOL) injection 15 mg 06-04 03:00: 00 06-04 03:06 :00 No 15mg 15 mg, Slow IV Push, ONCE, 1 dose, On Fri06/04/23 at 2200, JHOANA [facility] ondansetron (ZOFRAN (PF)) injection 4 mg 06-04 03:00: 00 06-04 03:05 :00 No 4mg 4 mg, Slow IV Push, ONCE, 1 dose, On Fri06/04/23 at 2200, JHOANA [facility] morpHINE (2 mg/mL) injection 2 mg 06-04 03:00: 00 06-04 03:07 :00 No 2mg 2 mg, Slow IV Push, ONCE, 1 dose, On Fri06/04/23 at 2200, STAT [facility] ibuprofen 800 mg tablet 06-03 00:00: 00 01-08 00:00 :00 No [id number] 800mg Take 1 tablet by mouth every 6 (six) hours as needed for Pain (scale 4-6) for up to 30 doses. [facility] fluconazole 200 mg tablet 06-03 00:00: 00 06-18 00:00 :00 No [id number] 400mg Take 2 tablets by mouth in the morning. [facility] ciprofloxac in HCl 500 mg tablet 06-03 00:00: 00 06-11 00:00 :00 No [id number] 500mg Take 1 tablet by mouth in the morning and 1 tablet in the evening. [facility] methocarbam oL 500 mg tablet 06-02 00:00: 00 01-08 00:00 :00 No [id number] 500mg Take 1 tablet by mouth 4 (four) times daily. [facility] tamsulosin 0.4 mg 24 hr capsule 06-02 00:00: 00 06-11 00:00 :00 No [id number] .4mg Take 1 capsule by mouth at bedtime. [facility] fluconazole (DIFLUCAN) tablet 400 mg 06-01 22:15: 00 06-08 13:59 :00 No 400mg 400 mg, Oral, DAILY, 7 doses, First dose on Fri06/02/23 at 1715, Last dose on Fri06/08/23 at 0900, JHOANA
Re ason for Anti-Infec tive: Documented Infection< br>Documen harvey Infection Site: Urine
D uration of Therapy: 7 days [facility] lactated ringers IV infusion 1,000 mL 06-01 18:30: 00 Yes 1000mL at 75 mL/hr, 1,000 mL, IV Infusion, CONTINUOUS , Starting on Fri06/02/23 at 1330, Until Discontinu ed, Routine, PACU [facility] lidocaine (XYLOCAINE) 2 % jelly URO-JET 06-01 17:56: 00 06-01 18:25 :04 No PRN, Starting on Fri06/02/23 at 1256, Until Fri06/02/23 at 1325, Routine, Intra-op [facility] sodium chloride 0.9 % irrigation solution 06-01 17:50: 00 Yes PRN, Starting on Fri06/02/23 at 1250, Until Discontinu ed, Intra-op [facility] iopamidol (ISOVUE 370-500 mL) injection 06-01 17:50: 00 06-01 18:25 :04 No PRN, Starting on Fri06/02/23 at 1250, Until Fri06/02/23 at 1325, Routine, Intra-op [facility] pantoprazol e (PROTONIX) EC tablet 40 mg 06-01 14:00: 00 Yes 40mg 40 mg, Oral, DAILY, First dose on Fri06/02/23 at 0900, Until Discontinu ed, Routine [facility] cyclobenzap rine (FLEXERIL) tablet 10 mg 06-01 08:00: 00 06-01 07:07 :00 No 10mg 10 mg, Oral, ONCE, 1 dose, On Fri06/02/23 at 0300, Routine [facility] nicotine (NICODERM) 14 mg/24 hr patch 1 Patch 06-01 04:15: 00 Yes 1{patch } 1 Patch, Topical, Administer over 24 Hours, Q24H, First dose on Fri06/01/23 at 2315, Until Discontinu ed, Routine [facility] tamsulosin (FLOMAX) capsule 0.4 mg 06-01 02:00: 00 Yes .4mg 0.4 mg, Oral, QHS, First dose on Fri06/01/23 at 2100, Until Discontinu ed, Routine [facility] atorvastati n (LIPITOR) tablet 10 mg 06-01 02:00: 00 Yes 10mg 10 mg, Oral, QHS, First dose on Fri06/01/23 at 2100, Until Discontinu ed, Routine [facility] methocarbam oL (ROBAXIN) tablet 500 mg 06-01 01:00: 00 Yes 500mg 500 mg, Oral, QID, First dose on Fri06/01/23 at 2000, Until Discontinu ed, Routine [facility] buPROPion SR (WELLBUTRIN SR) tablet 150 mg 06-01 01:00: 00 Yes 150mg 150 mg, Oral, BID, First dose on Fri06/01/23 at 2000, Until Discontinu ed, Routine [facility] acetaminoph en (TYLENOL) tablet 650 mg 05-31 23:00: 00 Yes 650mg 650 mg, Oral, Q6H, First dose (after last modificati on) on Fri06/01/23 at 1800, Until Discontinu ed, Routine [facility] lactated ringers IV infusion 1,000 mL 05-31 22:15: 00 06-01 21:59 :00 No 1000mL at 150 mL/hr, 1,000 mL, IV Infusion, CONTINUOUS , Starting on Fri06/01/23 at 1715, Until Fri06/02/23 at 1659, Routine [facility] Sliding Scale Insulin - Lispro (HumaLOG) 05-31 22:00: 00 Yes Subcutaneo us, TID MEALS+HS, First dose on Fri06/01/23 at 1700, Until Discontinu ed, Routine [facility] enoxaparin (LOVENOX) injection 40 mg 05-31 22:00: 00 Yes 40mg 40 mg, Subcutaneo us, DAILY, First dose on Fri06/01/23 at 1700, Until Discontinu ed, Routine [facility] morpHINE (4 mg/mL) injection 4 mg 05-31 21:48: 25 Yes 4mg 4 mg, Slow IV Push, Q4HPRN, Starting on Fri06/01/23 at 1648, Until Discontinu ed, Routine, Pain (scale 7-10) [facility] glucagon (GLUCAGEN DIAGNOSTIC KIT) injection 1 mg 05-31 21:46: 43 Yes 1mg 1 mg, Intramuscu lar, PRN, Starting on Fri06/01/23 at 1646, Until Discontinu ed, JHOANA, Blood Glucose < or = 70 mg/dL and patient is NPO, unable to swallow or has mental changes. [facility] dextrose 50 % in water (D50W) injection 25 mL 05-31 21:46: 43 Yes 25mL 25 mL, Slow IV Push, PRN, Starting on Fri06/01/23 at 1646, Until Discontinu ed, JHOANA, Blood Glucose < or = 70 mg/dL and patient is NPO, unable to swallow or has mental status changes. [facility] guaiFENesin (FENESIN IR) tablet 200 mg 05-31 21:46: 20 Yes 200mg 200 mg, Oral, Q4HPRN, Starting on Fri06/01/23 at 1646, Until Discontinu ed, Routine, Cough [facility] ondansetron (ZOFRAN (PF)) injection 4 mg 05-31 21:46: 20 Yes 4mg 4 mg, Slow IV Push, Q6HPRN, Starting on Fri06/01/23 at 1646, Until Discontinu ed, Routine, Nausea and Vomiting (N/V) [facility] sennosides- docusate sodium (SENOKOT-S) 8.6-50 mg per tablet 1 tablet 05-31 21:46: 20 Yes 1{tbl} 1 tablet, Oral, QDAILYPRN, Starting on Fri06/01/23 at 1646, Until Discontinu ed, Routine, Constipati on [facility] HYDROcodone -acetaminop hen (NORCO 5) 5-325 mg tablet 1 tablet 05-31 21:46: 20 06-02 21:45 :20 No 1{tbl} 1 tablet, Oral, Q6HPRN, Starting on Fri06/01/23 at 1646, Until Fri06/03/23 at 1645, Routine, Pain (scale 4-6) [facility] gabapentin (NEURONTIN) capsule 300 mg 05-31 21:45: 53 Yes 300mg 300 mg, Oral, QHSPRN, Starting on Fri06/01/23 at 1645, Until Discontinu ed, Routine, neuropathi c pain [facility] cefTRIAXone (ROCEPHIN) 1,000 mg in NaCl 0.9% (NS) 100 mL MINI-BAG 05-31 18:30: 00 05-31 19:08 :00 No 1000mg 1,000 mg, IV Piggyback, ONCE, 1 dose, On Fri06/01/23 at 1330, Administer over 30 Minutes, 100 mL
Reas on for Anti-Infec tive: Documented Infection< br>Documen harvey Infection Site: Urine
D uration of Therapy: Once (ED) [facility] ketorolac (TORADOL) injection 15 mg 05-31 17:30: 00 05-31 16:34 :00 No 15mg 15 mg, Slow IV Push, ONCE, 1 dose, On Fri06/01/23 at 1230, JHOANA [facility] NaCl 0.9% (NS) bolus infusion 1,000 mL 05-31 17:15: 00 05-31 19:08 :00 No 1000mL at 999 mL/hr, 1,000 mL, IV Infusion, ONCE, 1 dose, On Fri06/01/23 at 1215, JHOANA [facility] ondansetron (ZOFRAN (PF)) injection 4 mg 05-31 16:30: 00 05-31 16:34 :00 No 4mg 4 mg, Slow IV Push, ONCE, 1 dose, On Fri06/01/23 at 1130, JHOANA [facility] HYDROcodone -acetaminop hen 5-325 mg tablet 3-15 00:00: 00 Yes [facility] ketorolac 10 mg tablet 3-12 00:00: 00 Yes [facility] traMADoL 50 mg tablet 2-16 00:00: 00 Yes 1 po twice daily for severe pain. [facility] atorvastati n 40 mg tablet 2022-03 1-09 00:00: 00 Yes 40mg Take 1 tablet by mouth at bedtime. [facility] cephALEXin (KEFLEX) capsule 500 mg 09-27 13:00: 00 Yes 500mg 500 mg, Oral, QID, First dose on Nalini 09/27/21 at 0800, Until Discontinu ed, JHOANA
Re ason for Anti-Infec tive: Documented Infection< br>Documen harvey Infection Site: Urine
D uration of Therapy: Other (see Comments) [facility] iopamidol (ISOVUE 370-500 mL) injection 100 mL 09-27 07:15: 00 09-27 05:57 :00 No [id number] 100mL 100 mL, Intravenou s, ONCE, 1 dose, On Nalini 09/27/21 at 0215, Routine [facility] NaCl 0.9% (NS) bolus infusion 1,000 mL 09-27 06:45: 00 09-27 14:48 :00 No 1000mL at 999 mL/hr, 1,000 mL, IV Infusion, ONCE, 1 dose, On Nalnii 09/27/21 at 0145, JHOANA [facility] ondansetron (ZOFRAN (PF)) injection 4 mg 09-27 06:45: 00 09-27 06:21 :00 No 4mg 4 mg, Slow IV Push, ONCE, 1 dose, On Nalini 09/27/21 at 0145, JHOANA [facility] ketorolac (TORADOL) injection 15 mg 09-27 05:45: 00 09-27 06:21 :00 No 15mg 15 mg, Slow IV Push, ONCE, 1 dose, On Nalini 09/27/21 at 0045, JHOANA [facility] cefTRIAXone (ROCEPHIN) 1,000 mg in NaCl 0.9% (NS) 50 mL MINI-BAG 09-27 05:30: 00 09-27 08:24 :00 No 1000mg 1,000 mg, IV Piggyback, ONCE, 1 dose, On Nalini 09/27/21 at 0030, Administer over 30 Minutes, 50 mL
Reas on for Anti-Infec tive: Documented Infection< br>Documen harvey Infection Site: Urine
D uration of Therapy: Other (see Comments) [facility] diazePAM (VALIUM) tablet 5 mg 14 04:15: 00 09-27 04:46 :00 No 5mg 5 mg, Oral, ONCE, 1 dose, On Fri09/26/21 at 2315, JHOANA [facility] glipiZIDE 10 mg tablet 14 00:00: 00 Yes [id number] 10mg Take 1 tablet by mouth in the morning. [facility] cefdinir 300 mg capsule 09-27 00:00: 00 06-11 00:00 :00 No [id number] 300mg Take 1 capsule by mouth in the morning and 1 capsule in the evening. [facility] atorvastati n 10 mg tablet 5-24 00:00: 00 06-18 00:00 :00 No [id number] 10mg Take 1 tablet by mouth at bedtime. [facility] atorvastati n 10 mg tablet 2020-03 1-17 00:00: 00 Yes [id number] 10mg Take 1 tablet by mouth at bedtime. [facility] gabapentin 300 mg capsule 2020-03 0-15 00:00: 00 06-11 00:00 :00 No [id number] 300mg Take 1 capsule by mouth at bedtime as needed. [facility] glipiZIDE XL 5 mg 24 hr tablet 2020-03 0-07 00:00: 00 06-18 00:00 :00 No [id number] 5mg Take 1 tablet by mouth daily with breakfast. [facility] BUPROPION SR 150 mg SR tablet 12-11 00:00: 00 06-11 00:00 :00 No [id number] TAKE 1 TABLET BY MOUTH TWICE A DAY [facility] pantoprazol e 40 mg EC tablet 12-06 00:00: 00 06-11 00:00 :00 No [id number] 40mg Take 1 tablet by mouth daily. [facility] metFORMIN 1,000 mg tablet 12-04 00:00: 00 03-15 00:00 :00 No [id number] 1000mg Take 1 tablet by mouth 2 (two) times daily with meals. [facility] lisinopriL 5 mg tablet 15 00:00: 00 03-15 00:00 :00 No [id number] 5mg Take 1 tablet by mouth daily. [facility] blood sugar diagnostic (ONETOUCH ULTRA TEST) strip 11-23 00:00: 00 Yes Use to test glucose once a day E11.9 [facility] blood sugar diagnostic (ONETOUCH ULTRA TEST) strip 11-23 00:00: 00 Yes Use to test glucose once a day E11.9 [facility] lancets (ONETOUCH DELICA LANCETS) 30 gauge Misc 11-23 00:00: 00 Yes Use to test glucose once a day E11.9 [facility] albuterol 90 mcg/actuati on inhaler 11-16 00:00: 00 06-11 00:00 :00 No [id number] 2{puff} Inhale 2 Puffs every 4 (four) hours as needed for Wheezing or Shortness of Breath. [facility] acetaminoph en (TYLENOL EXTRA STRENGTH) 500 mg tablet 11-16 00:00: 00 06-11 00:00 :00 No [id number] 500mg Take 1 tablet by mouth every 6 (six) hours as needed for Pain for up to 20 doses. [facility] amlodipine 5 mg tablet Take [...] 1 tablet every day by oral route. [facility] Calcium 600 + D(3) 600 mg-10 mcg (400 unit) tablet Take 1 tablet every day by oral route. Calcium 600 + D(3) 600 mg-10 mcg (400 unit) tablet Take 1 tablet every day by oral route. No 1 Q1D Calcium 600 + D(3) 600 mg-10 mcg (400 unit) tablet Take 1 tablet every day by oral route. [facility] gabapentin 300 mg capsule Take 1 capsule every day by oral route for 90 days. gabapentin 300 mg capsule Take 1 capsule every day by oral route for 90 days. No 1capsul e(s) Q1D gabapentin 300 mg capsule Take 1 capsule every day by oral route for 90 days. [facility] glipizide ER 10 [...] day by oral route for 90 days. [facility] glipizide ER 2.5 mg tablet, extended release 24 hr TAKE 1 TABLET BY MOUTH EVERY DAY glipizide ER 2.5 mg tablet, extended release 24 hr TAKE 1 TABLET BY MOUTH EVERY DAY No glipizide ER 2.5 mg tablet, extended release 24 hr TAKE 1 TABLET BY MOUTH EVERY DAY [facility] hydroxyzine HCl 50 mg tablet TAKE 1 TABLET BY MOUTH FOUR TIMES A DAY FOR 10 DAYS hydroxyzine HCl 50 mg tablet TAKE 1 TABLET BY MOUTH FOUR TIMES A DAY FOR 10 DAYS No hydroxyzin e HCl 50 mg tablet TAKE 1 TABLET BY MOUTH FOUR TIMES A DAY FOR 10 DAYS [facility] ibuprofen 200 mg capsule Take 3 capsules every 4 hours by oral route for 3 days. ibuprofen 200 mg capsule Take 3 capsules every 4 hours by oral route for 3 days. No 3capsul e(s) Q4H ibuprofen 200 mg capsule Take 3 capsules every 4 hours by oral route for 3 days. [facility] metformin ER 500 [...] day by oral route for 90 days. [facility] omeprazole 20 mg tablet,billy yed release Take 1 tablet every day by oral route. omeprazole 20 mg tablet,billy yed release Take 1 tablet every day by oral route. No 1 Q1D omeprazole 20 mg tablet,del ayed release Take 1 tablet every day by oral route. [facility] OneTouch Delica Lancets 30 gauge OneTouch Delica Lancets 30 gauge No OneTouch Delica Lancets 30 gauge [facility] OneTouch Ultra Test strips Use as directed. OneTouch Ultra Test strips Use as directed. No OneTouch Ultra Test strips Use as directed. [facility] tramadol 37.5 mg-acetamin [...] TO 6 HOURS NEEDED FOR MODERATE PAIN [facility] amlodipine 5 mg tablet Take by oral route for 90 days. amlodipine 5 mg tablet Take by oral route for 90 days. No amlodipine 5 mg tablet Take by oral route for 90 days. [facility] aspirin 81 mg chewable tablet Chew 1 tablet every day by oral route. aspirin 81 mg chewable tablet Chew 1 tablet every day by oral route. No 1 Q1D aspirin 81 mg chewable tablet Chew 1 tablet every day by oral route. [facility] atorvastati n 40 mg tablet TAKE 1 TABLET BY MOUTH EVERYDAY AT BEDTIME atorvastati n 40 mg tablet TAKE 1 TABLET BY MOUTH EVERYDAY AT BEDTIME No atorvastat in 40 mg tablet TAKE 1 TABLET BY MOUTH EVERYDAY AT BEDTIME [facility] Calcium 600 + D(3) 600 mg-10 mcg (400 unit) tablet Take 1 tablet every day by oral route. Calcium 600 + D(3) 600 mg-10 mcg (400 unit) tablet Take 1 tablet every day by oral route. No 1 Q1D Calcium 600 + D(3) 600 mg-10 mcg (400 unit) tablet Take 1 tablet every day by oral route. [facility] Cipro 500 mg tablet Take 1 tablet every 12 hours by oral route for 7 days. Cipro 500 mg tablet Take 1 tablet every 12 hours by oral route for 7 days. No 1 Q12H Cipro 500 mg tablet Take 1 tablet every 12 hours by oral route for 7 days. [facility] glipizide 10 mg tablet TAKE 1 TABLET BY MOUTH EVERY DAY IN THE MORNING glipizide 10 mg tablet TAKE 1 TABLET BY MOUTH EVERY DAY IN THE MORNING No glipizide 10 mg tablet TAKE 1 TABLET BY MOUTH EVERY DAY IN THE MORNING [facility] glipizide ER 10 [...] day by oral route for 90 days. [facility] glipizide ER 2.5 mg tablet, extended release 24 hr TAKE 1 TABLET BY MOUTH EVERY DAY glipizide ER 2.5 mg tablet, extended release 24 hr TAKE 1 TABLET BY MOUTH EVERY DAY No glipizide ER 2.5 mg tablet, extended release 24 hr TAKE 1 TABLET BY MOUTH EVERY DAY [facility] hydroxyzine HCl 50 mg tablet TAKE 1 TABLET BY MOUTH FOUR TIMES A DAY FOR 10 DAYS hydroxyzine HCl 50 mg tablet TAKE 1 TABLET BY MOUTH FOUR TIMES A DAY FOR 10 DAYS No hydroxyzin e HCl 50 mg tablet TAKE 1 TABLET BY MOUTH FOUR TIMES A DAY FOR 10 DAYS [facility] metformin ER 500 [...] day by oral route for 90 days. [facility] omeprazole 20 mg capsule,del ayed release omeprazole 20 mg capsule,del ayed release No omeprazole 20 mg capsule,de layed release [facility] omeprazole 20 mg tablet,billy yed release Take 1 tablet every day by oral route. omeprazole 20 mg tablet,billy yed release Take 1 tablet every day by oral route. No 1 Q1D omeprazole 20 mg tablet,del ayed release Take 1 tablet every day by oral route. [facility] ondansetron 4 mg disintegrat ing tablet ondansetron 4 mg disintegrat ing tablet No ondansetro n 4 mg disintegra ting tablet [facility] OneTouch Delica Lancets 30 gauge OneTouch Delica Lancets 30 gauge No OneTouch Delica Lancets 30 gauge [facility] OneTouch Ultra Test strips Use as directed. OneTouch Ultra Test strips Use as directed. No OneTouch Ultra Test strips Use as directed. [facility] tramadol 37.5 mg-acetamin [...] TO 6 HOURS NEEDED FOR MODERATE PAIN [facility] aspirin 81 mg chewable tablet Chew 1 tablet every day by oral route. aspirin 81 mg chewable tablet Chew 1 tablet every day by oral route. No 1 Q1D aspirin 81 mg chewable tablet Chew 1 tablet every day by oral route. [facility] atorvastati n 40 mg tablet Take 1 tablet every day by oral route for 30 days. atorvastati n 40 mg tablet Take 1 tablet every day by oral route for 30 days. No 1 Q1D atorvastat in 40 mg tablet Take 1 tablet every day by oral route for 30 days. [facility] Bromfed DM 2 [...] day by oral route for 7 days. [facility] Calcium 600 + D(3) 600 mg-10 mcg (400 unit) tablet Take 1 tablet every day by oral route. Calcium 600 + D(3) 600 mg-10 mcg (400 unit) tablet Take 1 tablet every day by oral route. No 1 Q1D Calcium 600 + D(3) 600 mg-10 mcg (400 unit) tablet Take 1 tablet every day by oral route. [facility] cholecalcif dina (vitamin [...] week by oral route for 90 days. [facility] glipizide ER 10 [...] day by oral route for 30 days. [facility] levofloxaci n 750 mg tablet Take 1 tablet every day by oral route for 7 days. levofloxaci n 750 mg tablet Take 1 tablet every day by oral route for 7 days. No 1 Q1D levofloxac in 750 mg tablet Take 1 tablet every day by oral route for 7 days. [facility] lisinopril 5 mg tablet 1 tab by mouth daily lisinopril 5 mg tablet 1 tab by mouth daily No lisinopril 5 mg tablet 1 tab by mouth daily [facility] metformin 500 mg tablet Take 1 tablet twice a day by oral route for 30 days. metformin 500 mg tablet Take 1 tablet twice a day by oral route for 30 days. No 1 BID metformin 500 mg tablet Take 1 tablet twice a day by oral route for 30 days. [facility] albuterol sulfate HFA 90 mcg/actuati on aerosol inhaler Inhale 2 puffs every 4 hours by inhalation route. albuterol sulfate HFA 90 mcg/actuati on aerosol inhaler Inhale 2 puffs every 4 hours by inhalation route. No 2puff(s ) Q4H albuterol sulfate HFA 90 mcg/actuat ion aerosol inhaler Inhale 2 puffs every 4 hours by inhalation route. [facility] aspirin 81 mg chewable tablet Chew 1 tablet every day by oral route. aspirin 81 mg chewable tablet Chew 1 tablet every day by oral route. No 1 Q1D aspirin 81 mg chewable tablet Chew 1 tablet every day by oral route. [facility] atorvastati n 40 mg tablet Take 1 tablet every day by oral route for 30 days. atorvastati n 40 mg tablet Take 1 tablet every day by oral route for 30 days. No 1 Q1D atorvastat in 40 mg tablet Take 1 tablet every day by oral route for 30 days. [facility] Calcium 600 + D(3) 600 mg-10 mcg (400 unit) tablet Take 1 tablet every day by oral route. Calcium 600 + D(3) 600 mg-10 mcg (400 unit) tablet Take 1 tablet every day by oral route. No 1 Q1D Calcium 600 + D(3) 600 mg-10 mcg (400 unit) tablet Take 1 tablet every day by oral route. [facility] cholecalcif dina (vitamin [...] week by oral route for 90 days. [facility] glipizide ER 10 [...] day by oral route for 30 days. [facility] lisinopril 5 mg tablet 1 tab by mouth daily lisinopril 5 mg tablet 1 tab by mouth daily No lisinopril 5 mg tablet 1 tab by mouth daily [facility] metformin 500 mg tablet Take 1 tablet twice a day by oral route for 30 days. metformin 500 mg tablet Take 1 tablet twice a day by oral route for 30 days. No 1 BID metformin 500 mg tablet Take 1 tablet twice a day by oral route for 30 days. [facility] tramadol 50 mg tablet Take 1 tablet twice a day by oral route for 30 days. tramadol 50 mg tablet Take 1 tablet twice a day by oral route for 30 days. No 1 BID tramadol 50 mg tablet Take 1 tablet twice a day by oral route for 30 days. [facility] albuterol sulfate HFA 90 mcg/actuati on aerosol inhaler Inhale 2 puffs every 4 hours by inhalation route. albuterol sulfate HFA 90 mcg/actuati on aerosol inhaler Inhale 2 puffs every 4 hours by inhalation route. No 2puff(s ) Q4H albuterol sulfate HFA 90 mcg/actuat ion aerosol inhaler Inhale 2 puffs every 4 hours by inhalation route. [facility] aspirin 81 mg chewable tablet Chew 1 tablet every day by oral route. aspirin 81 mg chewable tablet Chew 1 tablet every day by oral route. No 1 Q1D aspirin 81 mg chewable tablet Chew 1 tablet every day by oral route. [facility] atorvastati n 40 mg tablet Take 1 tablet every day by oral route for 30 days. atorvastati n 40 mg tablet Take 1 tablet every day by oral route for 30 days. No 1 Q1D atorvastat in 40 mg tablet Take 1 tablet every day by oral route for 30 days. [facility] Calcium 600 + D(3) 600 mg-10 mcg (400 unit) tablet Take 1 tablet every day by oral route. Calcium 600 + D(3) 600 mg-10 mcg (400 unit) tablet Take 1 tablet every day by oral route. No 1 Q1D Calcium 600 + D(3) 600 mg-10 mcg (400 unit) tablet Take 1 tablet every day by oral route. [facility] cholecalcif dina (vitamin [...] week by oral route for 90 days. [facility] glipizide ER 10 [...] day by oral route for 30 days. [facility] lisinopril 5 mg [...] day by oral route for 30 days. [facility] tramadol 50 mg tablet Take 1 tablet twice a day by oral route for 30 days. tramadol 50 mg tablet Take 1 tablet twice a day by oral route for 30 days. No 1 BID tramadol 50 mg tablet Take 1 tablet twice a day by oral route for 30 days. [facility] atorvastati n 40 mg tablet Take 1 tablet every day by oral route for 30 days. atorvastati n 40 mg tablet Take 1 tablet every day by oral route for 30 days. No 1 Q1D atorvastat in 40 mg tablet Take 1 tablet every day by oral route for 30 days. [facility] Calcium 600 + D(3) 600 mg-10 mcg (400 unit) tablet Take 1 tablet every day by oral route. Calcium 600 + D(3) 600 mg-10 mcg (400 unit) tablet Take 1 tablet every day by oral route. No 1 Q1D Calcium 600 + D(3) 600 mg-10 mcg (400 unit) tablet Take 1 tablet every day by oral route. [facility] cholecalcif dina (vitamin [...] week by oral route for 90 days. [facility] glipizide ER 10 [...] day by oral route for 30 days. [facility] lisinopril 5 mg tablet 1 tab by mouth daily lisinopril 5 mg tablet 1 tab by mouth daily No lisinopril 5 mg tablet 1 tab by mouth daily [facility] metformin ER 500 [...] every day by oral route at dinner. [facility] Naprosyn 500 mg tablet 1 po twice daily with food as needed for joint pain. Naprosyn 500 mg tablet 1 po twice daily with food as needed for joint pain. No Naprosyn 500 mg tablet 1 po twice daily with food as needed for joint pain. [facility] tramadol 50 mg tablet 1 po twice daily for severe pain. tramadol 50 mg tablet 1 po twice daily for severe pain. No tramadol 50 mg tablet 1 po twice daily for severe pain. [facility] atorvastati n 40 mg tablet Take 1 tablet every day by oral route for 30 days. atorvastati n 40 mg tablet Take 1 tablet every day by oral route for 30 days. No 1 Q1D atorvastat in 40 mg tablet Take 1 tablet every day by oral route for 30 days. [facility] famotidine 20 mg tablet Take 1 tablet twice a day by oral route. famotidine 20 mg tablet Take 1 tablet twice a day by oral route. No 1 BID famotidine 20 mg tablet Take 1 tablet twice a day by oral route. [facility] glipizide ER 10 [...] day by oral route for 30 days. [facility] lisinopril 5 mg tablet 1 tab by mouth daily lisinopril 5 mg tablet 1 tab by mouth daily No lisinopril 5 mg tablet 1 tab by mouth daily [facility] loperamide 2 mg tablet Take 2 mg as needed by oral route. loperamide 2 mg tablet Take 2 mg as needed by oral route. No 2mg loperamide 2 mg tablet Take 2 mg as needed by oral route. [facility] metformin ER 500 [...] every day by oral route at dinner. [facility] tramadol 50 mg tablet 1 po twice daily for severe pain. tramadol 50 mg tablet 1 po twice daily for severe pain. No tramadol 50 mg tablet 1 po twice daily for severe pain. [facility] Immun[facility] Ordered Immunization Name Filled Immunization Name Date Status Comments Source Human Rabies Vaccine From Chicken Fibrobl[employer] ([employer]) 2023-09-16 00:00:00 Completed Human Rabies Vaccine From Chicken Fibroblast Culture (RABAVERT) 2023-09-09 00:00:00 Completed Human Rabies Vaccine From Chicken Fibroblast Culture (RABAVERT) 2023-09-05 00:00:00 Completed [facility] Human Rabies Vaccine From Chicken Fibroblast Culture (RABAVERT) 2023-09-02 00:00:00 Completed [facility] TDAP 2018-05-13 00:00:00 Completed [facility] TDAP 2018-05-13 00:00:00 Completed [facility] TDAP 2018-05-13 00:00:00 Completed [facility] TDAP 2018-05-13 00:00:00 Completed [facility] TDAP 2018-05-13 00:00:00 Completed [facility] TDAP 2018-05-13 00:00:00 Completed [facility] TDAP Unknown Completed [facility] TDAP Unknown Completed [facility] TDAP Unknown Completed [facility] TDAP Unknown Completed [facility] TDAP Unknown Completed [facility] TDAP Unknown Completed [facility] TDAP Unknown Completed [facility] TDAP Unknown Completed [facility] TDAP Unknown Completed [facility] TDAP Unknown Completed [facility] TDAP Unknown Completed [facility] TDAP Unknown Completed [facility] TDAP Unknown Completed [facility] TDAP Unknown Completed [facility] TDAP Unknown Completed [facility] TDAP Unknown Completed [facility] TDAP Unknown Completed [facility] TDAP Unknown Completed [facility] TDAP Unknown Completed [facility] TDAP Unknown Completed [facility] TDAP Unknown Completed [facility] TDAP Unknown Completed [facility] TDAP Unknown Completed [facility] TDAP Unknown Completed [facility] TDAP Unknown Completed [facility] TDAP Unknown Completed [facility] TDAP Unknown Completed [facility] TDAP Unknown Completed [facility] TDAP Unknown Completed [facility] TDAP Unknown Completed [facility] TDAP Unknown Completed [facility] Human Rabies Vaccine From Chicken Fibroblast Culture (RABAVERT) Unknown Completed [facility] TDAP Unknown Completed [facility] Human Rabies Vaccine From Chicken Fibroblast Culture (RABAVERT) Unknown Completed [facility] TDAP Unknown Completed [facility] Human Rabies Vaccine From Chicken Fibroblast Culture (RABAVERT) Unknown Completed [facility] Human Rabies Vaccine From Chicken Fibroblast Culture (RABAVERT) Unknown Completed [facility] TDAP Unknown Completed [facility] TDAP Unknown Completed [facility] Human Rabies Vaccine From Chicken Fibroblast Culture (RABAVERT) Unknown Completed [facility] Human Rabies Vaccine From Chicken Fibroblast Culture (RABAVERT) Unknown Completed [facility] TDAP Unknown Completed [facility] Human Rabies Vaccine From Chicken Fibroblast Culture (RABAVERT) Unknown Completed [facility] Human Rabies Vaccine From Chicken Fibroblast Culture (RABAVERT) Unknown Completed [facility] TDAP Unknown Completed [facility] Human Rabies Vaccine From Chicken Fibroblast Culture (RABAVERT) Unknown Completed [facility] Human Rabies Vaccine From Chicken Fibroblast Culture (RABAVERT) Unknown Completed [facility] TDAP Unknown Completed [facility] Human Rabies Vaccine From Chicken Fibroblast Culture (RABAVERT) Unknown Completed [facility] Human Rabies Vaccine From Chicken Fibroblast Culture (RABAVERT) Unknown Completed [facility] TDAP Unknown Completed [facility] Human Rabies Vaccine From Chicken Fibroblast Culture (RABAVERT) Unknown Completed [facility] Human Rabies Vaccine From Chicken Fibroblast Culture (RABAVERT) Unknown Completed [facility] TDAP Unknown Completed [facility] Human Rabies Vaccine From Chicken Fibroblast Culture (RABAVERT) Unknown Completed [facility] Human Rabies Vaccine From Chicken Fibroblast Culture (RABAVERT) Unknown Completed [facility] TDAP Unknown Completed [facility] Human Rabies Vaccine From Chicken Fibroblast Culture (RABAVERT) Unknown Completed [facility] Human Rabies Vaccine From Chicken Fibroblast Culture (RABAVERT) Unknown Completed [facility] TDAP Unknown Completed [facility] Human Rabies Vaccine From Chicken Fibroblast Culture (RABAVERT) Unknown Completed [facility] Human Rabies Vaccine From Chicken Fibroblast Culture (RABAVERT) Unknown Completed [facility] TDAP Unknown Completed [facility] Human Rabies Vaccine From Chicken Fibroblast Culture (RABAVERT) Unknown Completed [facility] Human Rabies Vaccine From Chicken Fibroblast Culture (RABAVERT) Unknown Completed [facility] TDAP Unknown Completed [facility] Human Rabies Vaccine From Chicken Fibroblast Culture (RABAVERT) Unknown Completed [facility] Human Rabies Vaccine From Chicken Fibroblast Culture (RABAVERT) Unknown Completed [facility] TDAP Unknown Completed [facility] Human Rabies Vaccine From Chicken Fibroblast Culture (RABAVERT) Unknown Completed [facility] Human Rabies Vaccine From Chicken Fibroblast Culture (RABAVERT) Unknown Completed [facility] TDAP Unknown Completed [facility] Human Rabies Vaccine From Chicken Fibroblast Culture (RABAVERT) Unknown Completed [facility] Human Rabies Vaccine From Chicken Fibroblast Culture (RABAVERT) Unknown Completed [facility] TDAP Unknown Completed [facility] Human Rabies Vaccine From Chicken Fibroblast Culture (RABAVERT) Unknown Completed [facility] Human Rabies Vaccine From Chicken Fibroblast Culture (RABAVERT) Unknown Completed [facility] Vital Signs Vital Name Observation Time Observation Value Comments S ource Respiratory rate 2024-03-16 20:42:00 16 /min [facility] Body height 2024-03-16 20:42:00 149.9 cm [facility] Body weight 2024-03-16 20:42:00 58.968 kg [facility] BMI 2024-03-16 20:42:00 26.26 kg/m2 [facility] Systolic blood pressure 2024-02-27 19:49:00 102 mm[Hg] [facility] Diastolic blood pressure 2024-02-27 19:49:00 74 mm[Hg] [facility] Heart rate 2024-02-27 19:49:00 80 /min [facility] Body temperature 2024-02-27 19:49:00 36.72 Fauzia [facility] Body height 2024-02-27 19:49:00 149.9 cm [facility] Body weight 2024-02-27 19:49:00 58.968 kg [facility] BMI 2024-02-27 19:49:00 26.26 kg/m2 [facility] Systolic blood pressure 2024-01-09 20:16:00 138 mm[Hg] [facility] Diastolic blood pressure 2024-01-09 20:16:00 86 mm[Hg] [facility] Heart rate 2024-01-09 20:16:00 79 /min [facility] Body temperature 2024-01-09 20:16:00 36.78 Fauzia [facility] Respiratory rate 2024-01-09 20:16:00 18 /min [facility] Body height 2024-01-09 20:16:00 149.9 cm [facility] Body weight 2024-01-09 20:16:00 55.792 kg [facility] BMI 2024-01-09 20:16:00 24.84 kg/m2 [facility] Oxygen saturation in Arterial blood by Pulse oximetry 2024-01-09 20:16:00 98 /min [facility] Systolic blood pressure 2023-09-17 00:59:00 136 mm[Hg] [facility] Diastolic blood pressure 2023-09-17 00:59:00 80 mm[Hg] [facility] Heart rate 2023-09-17 00:59:00 62 /min [facility] Body temperature 2023-09-17 00:59:00 36.78 Fauzia [facility] Respiratory rate 2023-09-17 00:59:00 17 /min [facility] Body weight 2023-09-17 00:59:00 52.617 kg [facility] BMI 2023-09-17 00:59:00 23.43 kg/m2 [facility] Oxygen saturation in Arterial blood by Pulse oximetry 2023-09-17 00:59:00 98 /min [facility] Systolic blood pressure 2023-09-11 13:27:00 147 mm[Hg] [facility] Diastolic blood pressure 2023-09-11 13:27:00 78 mm[Hg] [facility] Heart rate 2023-09-11 13:27:00 71 /min [facility] Body height 2023-09-11 13:27:00 149.9 cm [facility] Body weight 2023-09-11 13:27:00 53.524 kg [facility] BMI 2023-09-11 13:27:00 23.83 kg/m2 [facility] Oxygen saturation in Arterial blood by Pulse oximetry 2023-09-11 13:27:00 97 /min [facility] Systolic blood pressure 2023-09-10 14:07:00 150 mm[Hg] [facility] Diastolic blood pressure 2023-09-10 14:07:00 83 mm[Hg] [facility] Heart rate 2023-09-10 14:06:00 65 /min [facility] Body height 2023-09-10 14:06:00 149.9 cm [facility] Body weight 2023-09-10 14:06:00 53.842 kg [facility] BMI 2023-09-10 14:06:00 23.97 kg/m2 [facility] Oxygen saturation in Arterial blood by Pulse oximetry 2023-09-10 14:06:00 98 /min [facility] Systolic blood pressure 2023-09-10 01:22:00 132 mm[Hg] [facility] Diastolic blood pressure 2023-09-10 01:22:00 89 mm[Hg] [facility] Heart rate 2023-09-10 01:22:00 63 /min [facility] Body temperature 2023-09-10 01:22:00 36.28 Fauzia [facility] Respiratory rate 2023-09-10 01:22:00 17 /min [facility] Body height 2023-09-10 01:22:00 149.9 cm [facility] Body weight 2023-09-10 01:22:00 53.695 kg [facility] BMI 2023-09-10 01:22:00 23.91 kg/m2 [facility] Oxygen saturation in Arterial blood by Pulse oximetry 2023-09-10 01:22:00 100 /min [facility] Systolic blood pressure 2023-09-06 00:30:00 116 mm[Hg] [facility] Diastolic blood pressure 2023-09-06 00:30:00 72 mm[Hg] [facility] Heart rate 2023-09-06 00:30:00 69 /min [facility] Body temperature 2023-09-06 00:30:00 36.78 Fauzia [facility] Respiratory rate 2023-09-06 00:30:00 18 /min [facility] Body weight 2023-09-06 00:30:00 52.617 kg [facility] BMI 2023-09-06 00:30:00 23.43 kg/m2 [facility] Oxygen saturation in Arterial blood by Pulse oximetry 2023-09-06 00:30:00 99 /min [facility] Systolic blood pressure 2023-09-03 00:35:00 157 mm[Hg] [facility] Diastolic blood pressure 2023-09-03 00:35:00 92 mm[Hg] [facility] Heart rate 2023-09-03 00:35:00 64 /min [facility] Body temperature 2023-09-03 00:35:00 36.94 Fauzia [facility] Respiratory rate 2023-09-03 00:35:00 16 /min [facility] Body height 2023-09-03 00:35:00 149.9 cm [facility] Body weight 2023-09-03 00:35:00 52.164 kg [facility] BMI 2023-09-03 00:35:00 23.23 kg/m2 [facility] Oxygen saturation in Arterial blood by Pulse oximetry 2023-09-03 00:35:00 100 /min [facility] Systolic blood pressure 2023-08-26 00:04:00 108 mm[Hg] [facility] Diastolic blood pressure 2023-08-26 00:04:00 67 mm[Hg] [facility] Heart rate 2023-08-26 00:04:00 65 /min [facility] Body temperature 2023-08-26 00:04:00 36.78 Fauzia [facility] Respiratory rate 2023-08-26 00:04:00 17 /min [facility] Body height 2023-08-26 00:04:00 149.9 cm [facility] Body weight 2023-08-26 00:04:00 52.787 kg [facility] BMI 2023-08-26 00:04:00 23.50 kg/m2 [facility] Oxygen saturation in Arterial blood by Pulse oximetry 2023-08-26 00:04:00 96 /min [facility] Body weight 2023-06-19 19:24:00 54.432 kg [facility] BMI 2023-06-19 19:24:00 24.24 kg/m2 [facility] Systolic blood pressure 2023-06-18 21:19:00 119 mm[Hg] [facility] Diastolic blood pressure 2023-06-18 21:19:00 73 mm[Hg] [facility] Heart rate 2023-06-18 21:19:00 66 /min [facility] Body temperature 2023-06-18 21:19:00 37.17 Fauzia [facility] Respiratory rate 2023-06-18 21:19:00 16 /min [facility] Body height 2023-06-18 21:19:00 149.9 cm [facility] Body weight 2023-06-18 21:19:00 54.432 kg [facility] BMI 2023-06-18 21:19:00 24.24 kg/m2 [facility] Oxygen saturation in Arterial blood by Pulse oximetry 2023-06-18 21:19:00 97 /min [facility] Systolic blood pressure 2023-06-13 00:25:00 104 mm[Hg] [facility] Diastolic blood pressure 2023-06-13 00:25:00 70 mm[Hg] [facility] Heart rate 2023-06-13 00:25:00 81 /min [facility] Respiratory rate 2023-06-13 00:25:00 12 /min [facility] Oxygen saturation in Arterial blood by Pulse oximetry 2023-06-13 00:25:00 95 /min [facility] Body temperature 2023-06-12 23:11:00 36 Fauzia [facility] Body height 2023-06-12 18:16:00 149.9 cm [facility] Body weight 2023-06-12 18:16:00 54.432 kg [facility] BMI 2023-06-12 18:16:00 24.24 kg/m2 [facility] Systolic blood pressure 2023-06-12 18:16:00 111 mm[Hg] [facility] Diastolic blood pressure 2023-06-12 18:16:00 70 mm[Hg] [facility] Heart rate 2023-06-12 18:16:00 88 /min [facility] Body temperature 2023-06-12 18:16:00 36.89 Fauzia [facility] Respiratory rate 2023-06-12 18:16:00 18 /min [facility] Body height 2023-06-12 18:16:00 149.9 cm [facility] Body weight 2023-06-12 18:16:00 54.432 kg [facility] BMI 2023-06-12 18:16:00 24.24 kg/m2 [facility] Oxygen saturation in Arterial blood by Pulse oximetry 2023-06-12 18:16:00 98 /min [facility] Systolic blood pressure 2023-06-05 03:07:00 165 mm[Hg] [facility] Diastolic blood pressure 2023-06-05 03:07:00 83 mm[Hg] [facility] Heart rate 2023-06-05 03:07:00 86 /min [facility] Body temperature 2023-06-05 03:07:00 37.72 Fauzia [facility] Respiratory rate 2023-06-05 03:07:00 18 /min [facility] Oxygen saturation in Arterial blood by Pulse oximetry 2023-06-05 03:07:00 97 /min [facility] Body height 2023-06-04 22:16:00 149.9 cm [facility] Body weight 2023-06-04 22:16:00 54.432 kg [facility] BMI 2023-06-04 22:16:00 24.24 kg/m2 [facility] Systolic blood pressure 2023-06-03 21:08:00 156 mm[Hg] [facility] Diastolic blood pressure 2023-06-03 21:08:00 82 mm[Hg] [facility] Heart rate 2023-06-03 21:08:00 88 /min [facility] Body temperature 2023-06-03 21:08:00 36.72 Fauzia [facility] Respiratory rate 2023-06-03 21:08:00 18 /min [facility] Oxygen saturation in Arterial blood by Pulse oximetry 2023-06-03 21:08:00 96 /min [facility] Body weight 2023-06-03 09:22:00 55.974 kg [facility] BMI 2023-06-03 09:22:00 24.92 kg/m2 [facility] Body height 2023-06-02 16:13:00 149.9 cm [facility] Systolic blood pressure 2023-06-02 18:50:00 112 mm[Hg] [facility] Diastolic blood pressure 2023-06-02 18:50:00 61 mm[Hg] [facility] Heart rate 2023-06-02 18:50:00 80 /min [facility] Respiratory rate 2023-06-02 18:50:00 16 /min [facility] Oxygen saturation in Arterial blood by Pulse oximetry 2023-06-02 18:50:00 95 /min [facility] Body temperature 2023-06-02 18:19:00 38 Fauzia [facility] Body height 2023-06-02 16:13:00 149.9 cm [facility] Body weight 2023-06-02 16:13:00 56.246 kg [facility] BMI 2023-06-02 16:13:00 24.92 kg/m2 [facility] BP Diastolic 2023-05-02 00:00:00 72 mm[Hg] [facility] BP Systolic 2023-05-02 00:00:00 117 mm[Hg] [facility] BMI (Body Mass Index) 2023-05-02 00:00:00 25.2 kg/m2 [facility] Height 2023-05-02 00:00:00 59 [in_i] [facility] Body Weight 2023-05-02 00:00:00 125 [lb_av] [facility] BP Systolic 2023-01-23 00:00:00 129 mm[Hg] [facility] BMI (Body Mass Index) 2023-01-23 00:00:00 24.9 kg/m2 [facility] Height 2023-01-23 00:00:00 59 [in_i] [facility] BP Diastolic 2023-01-23 00:00:00 78 mm[Hg] [facility] Body Weight 2023-01-23 00:00:00 123.4 [lb_av] [facility] BP Diastolic 2022-05-30 00:00:00 81 mm[Hg] [facility] Height 2022-05-30 00:00:00 59 [in_i] [facility] BMI (Body Mass Index) 2022-05-30 00:00:00 23[facility]7 [facility] Systolic 2022-05-30 00:00:00 130 [...] (Body Mass Index) 2022-03-28 00:00:00 23.2 kg/m2 [facility] BP Systolic 2022-03-28 00:00:00 126 [...] Systolic blood pressure 2021-09-27 14:48:37 157 mm[Hg] [facility] Diastolic blood pressure 2021-09-27 14:48:37 88 mm[Hg] [facility] Heart rate 2021-09-27 14:48:37 87 /min [facility] Respiratory rate 2021-09-27 14:48:37 18 /min [facility] Oxygen saturation in Arterial blood by Pulse oximetry 2021-09-27 14:48:37 98 /min [facility] Body temperature 2021-09-27 04:25:10 36.72 Fauzia [facility] Body height 2021-09-27 03:49:00 149.9 cm [facility] Body weight 2021-09-27 03:49:00 54.432 kg [facility] BMI 2021-09-27 03:49:00 24.24 kg/m2 [facility] BP Diastolic 2021-06-13 00:00:00 79 mm[Hg] [facility] Height 2021-06-13 00:00:00 59 [in_i] [place] [facility] BMI (Body Mass Index) 2021-06-13 00:00:00 25.6 kg/m2 [facility] BP Systolic 2021-06-13 00:00:00 141 mm[Hg] [facility] Body Weight 2021-06-13 00:00:00 126.8 [lb_av] [facility] BP Diastolic 2021-03-22 00:00:00 82 mm[Hg] [facility] Height 2021-03-22 00:00:00 59 [in_i] [place] [facility] BMI (Body Mass Index) 2021-03-22 00:00:00 24 kg/m2 [facility] BP Systolic 2021-03-22 00:00:00 120 mm[Hg] [facility] Body Weight 2021-03-22 00:00:00 119 [lb_av] [facility] Systolic blood pressure 2023-09-10 14:07:00 150 mm[Hg] [facility] Diastolic blood pressure 2023-09-10 14:07:00 83 mm[Hg] [facility] Heart rate 2023-09-10 14:06:00 65 /min [facility] Body height 2023-09-10 14:06:00 149.9 cm [facility] Body weight 2023-09-10 14:06:00 53.842 kg [facility] BMI 2023-09-10 14:06:00 23.97 kg/m2 [facility] Oxygen saturation in Arterial blood by Pulse oximetry 2023-09-10 14:06:00 98 /min [place] [facility] Body temperature 2023-09-10 01:22:00 36.28 Fauzia [facility] Respiratory rate 2023-09-10 01:22:00 17 /min [facility] Procedures Procedure Date / Time Performed Performing Clinician Source URINE CULTURE 2024-02-27 20:53:00 Magdalena Wise [facility] POCT URINALYSIS 2024-02-27 00:00:00 Magdalena Wise [facility] POCT URINALYSIS 2024-01-09 21:46:00 Martha Dangelo [facility] MITOCHONDRIAL M2 AB, IGG 2024-01-09 21:02:00 Lynsey Dangelo [facility] TRIIODOTHYRONINE 2024-01-09 21:02:00 Martha Dangelo [facility] COMP. METABOLIC PANEL ([id number]) 2024-01-09 21:02:00 Martha Dangelo [facility] ANTI-NUCLEAR ANTIBODY SCREEN 2024-01-09 21:02:00 Martha Dangelo [facility] HEPATITIS B SURFACE ANTIBODY 2024-01-09 21:02:00 Martha Dangelo [facility] HEPATITIS B SURFACE ANTIGEN 2024-01-09 21:02:00 Martha Dangelo [facility] HCV ANTIBODY 2024-01-09 21:02:00 Martha Dangelo [facility] HAV ANTIBODY (IGG AND IGM) 2024-01-09 21:02:00 Martha Dangelo [facility] ANTI-NUCLEAR ANTIBODY TITER 2024-01-09 21:02:00 Martha Dangelo [facility] ANTI-NUCLEAR ANTIBODY-PATHOLOGIST INTERPRETATION 2024-01-09 21:02:00 Martha Dangelo [facility] RABIES VACCINE, IM 2023-09-17 01:00:58 Doctor Un assigned, [place] [facility] MICROALBUMIN URINE 2023-09-10 14:57:00 Martha Dangelo [facility] THYROID STIMULATING HORMONE 2023-09-10 14:55:00 Martha Dangelo [facility] COMP. METABOLIC PANEL ([id number]) 2023-09-10 14:55:00 Martha Dangelo [facility] LIPID PANEL ([id number])(TOTAL CHOLESTEROL, TRIGLYCERIDES, HDL) 2023-09-10 14:55:00 Martha Dangelo [facility] CBC WITH DIFF 2023-09-10 14:55:00 Martha Dangelo [facility] COMP. METABOLIC PANEL ([id number]) 2023-09-10 14:55:00 Martha Dangelo [facility] [facility] GLYCOSYLATED HEMOGLOBIN (A1C) 2023-09-10 14:55:00 Martha Dangelo [facility] LIPID PANEL (31394)(TOTAL CHOLESTEROL, TRIGLYCERIDES, HDL) 2023-09-10 14:55:00 Martha Dangelo [facility] THYROID STIMULATING HORMONE 2023-09-10 14:55:00 Martha Dangelo [facility] FREE T4 2023-09-10 14:55:00 Martha Dangelo [facility] RABIES VACCINE, IM 2023-09-10 01:25:48 Doctor Un assigned, [place]clenny [facility] RABIES VACCINE, 2023-09-10 01:25:48 Doctor Un assigned, [place]clenny [facility] RABIES VACCINE, IM 2023-09-06 00:50:30 Madeline Simons [facility] RABIES VACCINE, IM 2023-09-06 00:50:30 Madeline Simons Un [facility] XR RIBS 3 VW LEFT 2023-08-26 01:03:20 See Min [facility] XR RIBS 3 VW LEFT 2023-08-26 01:03:20 See Min [facility] XR HAND 3+ VW RIGHT 2023-08-26 01:03:00 Sade Min [facility] XR HAND 3+ VW RIGHT 2023-08-26 01:03:00 Sade Min [facility] CT ABDOMEN PELVIS WO CONTRAST 2023-06-21 20:34:50 Mikayla Florez [facility] REFERRAL- REQUEST/RESPONSE 2023-06-18 21:13:52 D octor Unassigned, [place] [facility] REFERRAL- REQUEST/RESPONSE 2023-06-18 20:59:23 D octor Unassigned, [place]clenny [facility] FL TIME OR (NON-REPORTABLE) 2023-06-12 23:10:00 Rosey [facility] URINE CULTURE 2023-06-12 22:38:00 Carlos Gomes [facility] INTUBATION 2023-06-12 21:52:00 [facility] URETEROSCOPIC STONE MANIPULATION 2023-06-12 21:35:00 Rosey [facility] URETEROSCOPIC STONE MANIPULATION 2023-06-12 21:35:00 Rosey [facility] URETEROSCOPIC STONE MANIPULATION 2023-06-12 21:35:00 Rosey [facility] URETEROSCOPIC STONE MANIPULATION 2023-06-12 21:35:00 Rosey [facility] URETEROSCOPIC STONE MANIPULATION 2023-06-12 21:35:00 Rosey [facility] URETEROSCOPIC STONE MANIPULATION 2023-06-12 21:35:00 Rosey [facility] URETEROSCOPIC STONE MANIPULATION 2023-06-12 21:35:00 Rosey [facility] [id number] - IN CYSTO/URETERO W/LITHOTRIPSY &INDWELL STENT INSRT 2023-06-12 21:35:00 Rosey [facility] [id number] - IN CYSTO W/URETEROSCOPY W/RMVL/MANJ STONES 2023-06-12 21:35:00 Rosey [facility] 10532 - IN CYSTO W/URETEROSCOPY W/LITHOTRIPSY 2023-06-12 21:35:00 Rosey [facility] [id number] - IN CYSTO W/SIMPLE REMOVAL STONE & STENT 2023-06-12 21:35:00 Rosey [facility] [id number] - IN CYSTO W/COMPLEX REMOVAL STONE & STENT 2023-06-12 21:35:00 [facility] 04455 - IN CYSTO W/INSERT URETERAL STENT 2023-06-12 21:35:00 [facility] [id number] - CHG UROGRAPHY RETROGRADE WITH/WO KUB 2023-06-12 21:35:00 [facility] POCT GLUCOSE (AUTOMATED) 2023-06-12 18:33:00 [facility] POCT GLUCOSE (AUTOMATED) 2023-06-12 18:33:00 [facility] POCT GLUCOSE (AUTOMATED) 2023-06-12 18:33:00 [facility] URINALYSIS 2023-06-05 01:27:00 [facility] COMP. METABOLIC PANEL (60399) 2023-06-05 00:42:00 [facility] CBC WITH DIFF 2023-06-05 00:42:00 Mark [facility] CONSENT/REFUSAL FOR DIAGNOSIS AND TREATMENT 2023-06-04 22:10:48 Doctor Unassigned, Macclenny [facility] POCT GLUCOSE (AUTOMATED) 2023-06-03 17:25:00 Ra damon Sanchez [facility] POCT GLUCOSE (AUTOMATED) 2023-06-03 17:25:00 Ra damon Sanchez [facility] POCT GLUCOSE (AUTOMATED) 2023-06-03 12:57:00 Ra damon Sanchez [facility] POCT GLUCOSE (AUTOMATED) 2023-06-03 12:57:00 Ra damon Sanchez [facility] PHOSPHORUS 2023-06-03 09:29:00 [facility] MAGNESIUM 2023-06-03 09:29:[address] [facility] BASIC METABOLIC PANEL (NA, K, CL, CO2, GLUCOSE, BUN, CREATININE, CA) 2023-06-03 09:29:00 Heidari, [facility] PHOSPHORUS 2023-06-03 09:29:00 Boboarcadio [facility] MAGNESIUM 2023-06-03 09:29:00 [email or web address] [facility] BASIC METABOLIC PANEL (NA, K, CL, CO2, GLUCOSE, BUN, CREATININE, CA) 2023-06-03 09:29:00 Avtar [facility] CBC WITH DIFF 2023-06-03 08:12:00 [email or web address] [facility] CBC WITH DIFF 2023-06-03 08:12:00 [facility] POCT GLUCOSE (AUTOMATED) 2023-06-03 08:11:00 Ra damon Sanchez [facility] POCT GLUCOSE (AUTOMATED) 2023-06-03 08:11:00 Ra damon Sanchez [facility] POCT GLUCOSE (AUTOMATED) 2023-06-03 05:03:00 Ra damon Sanchez [facility] POCT GLUCOSE (AUTOMATED) 2023-06-03 05:03:00 Ra damon Sanchez [facility] POCT GLUCOSE (AUTOMATED) 2023-06-03 01:49:00 Ra damon Sanchez [facility] POCT GLUCOSE (AUTOMATED) 2023-06-03 01:49:00 Ra damon Sanchez [facility] POCT GLUCOSE (AUTOMATED) 2023-06-02 21:36:00 Ra damon Sanchez [facility] POCT GLUCOSE (AUTOMATED) 2023-06-02 21:36:00 Ra damon Sanchez [facility] FL TIME OR (NON-REPORTABLE) 2023-06-02 18:10:56 Margaret Tena [facility] FL TIME OR (NON-REPORTABLE) 2023-06-02 18:10:56 Margaret Tena [facility] URINE CULTURE 2023-06-02 18:02:00 Carlos Gomes [facility] URINE CULTURE 2023-06-02 18:02:00 [facility] CYSTOSCOPY WITH INSERTION STENT URETER 2023-06-02 17:18:00 Rosey [facility] RETROGRADE PYELOGRAM 2023-06-02 17:18:00 Magdiel Gomes [facility] CYSTOSCOPY WITH INSERTION STENT URETER 2023-06-02 17:18:00 Rosey [facility] RETROGRADE PYELOGRAM 2023-06-02 17:18:00 Magdiel Gomes [facility] URINALYSIS 2023-06-02 16:11:00 Margaret Tena [facility] URINALYSIS 2023-06-02 16:11:00 Margaret Tena [facility] PHOSPHORUS 2023-06-02 09:52:00 Avtar [facility] MAGNESIUM 2023-06-02 09:52:00 Avtar [facility] THYROID STIMULATING HORMONE 2023-06-02 09:52:00 Avtar [facility] BASIC METABOLIC PANEL (NA, K, CL, CO2, GLUCOSE, BUN, CREATININE, CA) 2023-06-02 09:52:00 Avtar [facility] LIPID PANEL ([id number])(TOTAL CHOLESTEROL, TRIGLYCERIDES, HDL) 2023-06-02 09:52:00 Avtar [facility] CBC WITH DIFF 2023-06-02 09:52:00 [facility] (A1C) 2023-06-02 09:52:00 Avtar [facility] PHOSPHORUS 2023-06-02 09:52:00 [facility] 2023-06-02 09:52:00 Avtar [facility] THYROID STIMULATING HORMONE 2023-06-02 09:52:00 Avtar [facility] BASIC METABOLIC PANEL (NA, K, CL, CO2, GLUCOSE, BUN, CREATININE, CA) 2023-06-02 09:52:00 Avtar [facility] LIPID PANEL (58729)(TOTAL CHOLESTEROL, TRIGLYCERIDES, HDL) 2023-06-02 09:52:00 Avtar [facility] CBC WITH DIFF 2023-06-02 09:52:00 Calvin Nova [facility] GLYCOSYLATED HEMOGLOBIN (A1C) 2023-06-02 09:52:00 Avtar [facility] POCT GLUCOSE (AUTOMATED) 2023-06-02 01:57:00 Avtar [facility] POCT GLUCOSE (AUTOMATED) 2023-06-02 01:57:00 Avtar [facility] BLOOD CULTURE SCREEN 2023-06-01 22:49:00 Ger [facility] BLOOD CULTURE SCREEN 2023-06-01 22:49:00 Ger [facility] POCT GLUCOSE(AGE >30DAYS) 2023-06-01 22:27:00 Avtar [facility] POCT GLUCOSE(AGE >30DAYS) 2023-06-01 22:27:00 Avtar [facility] POCT GLUCOSE (AUTOMATED) 2023-06-01 22:26:00 Avtar [facility] POCT GLUCOSE (AUTOMATED) 2023-06-01 22:26:00 Avtar [facility] BLOOD CULTURE SCREEN 2023-06-01 22:06:00 Ger [facility] BLOOD CULTURE SCREEN 2023-06-01 22:06:00 Ger [facility] XR CHEST 2 VW 2023-06-01 17:34:00 Rc Peng [facility] XR CHEST 2 VW 2023-06-01 17:34:00 [facility] CT ABDOMEN PELVIS WO CONTRAST 2023-06-01 17:23:00 Domenic [facility] CT ABDOMEN PELVIS WO CONTRAST 2023-06-01 17:23:00 Rc Peng [facility] LIPASE 2023-06-01 16:31:00 Rc Peng [facility] COMP. METABOLIC PANEL ([id number]) 2023-06-01 16:31:00 Rc Peng [facility] CBC WITH DIFF 2023-06-01 16:31:00 Rc Peng [facility] URINALYSIS 2023-06-01 16:31:00 Rc Peng [facility] URINE CULTURE 2023-06-01 16:31:00 Rc Peng [facility] EXTRA TUBE URINE CULTURE 2023-06-01 16:31:00 Raf Peng [facility] LIPASE 2023-06-01 16:31:00 [facility] COMP. METABOLIC PANEL (39149) 2023-06-01 16:31:00 Rc Peng [facility] CBC WITH DIFF 2023-06-01 16:31:00 Rc Peng [facility] URINALYSIS 2023-06-01 16:31:00 Rc Pneg [facility] URINE CULTURE 2023-06-01 16:31:00 Rc Peng [facility] EXTRA TUBE URINE CULTURE 2023-06-01 16:31:00 Raf Peng [facility] CONSENT/REFUSAL FOR DIAGNOSIS AND TREATMENT 2023-06-01 16:13:14 Doctor Unassigned, [place]clenny [facility] CONSENT/REFUSAL FOR DIAGNOSIS AND TREATMENT 2023-06-01 16:13:14 Doctor Unassigned, [place]clenny [facility] MAMMO, screening, digital, bilateral 2023-01-23 00:00:00 [facility] MAMMO, screening, tomosynthesis, bilateral, w/ CAD 2022-05-30 00:00:00 [facility] MEDICATION CORRESPONDENCE 2021-10-26 05:01:00 Do ctor Unassigned, [place] [facility] EKG-12 LEAD 2021-09-27 11:30:18 Jayden Knight [facility] ETHANOL 2021-09-27 09:11:00 Jayden Knight [facility] CBC WITH DIFF 2021-09-27 06:19:00 Jayden Knight [facility] COVID-19 (ID NOW RAPID TESTING) 2021-09-27 06:19:00 Jayden Knight [facility] CT ABDOMEN PELVIS W CONTRAST 2021-09-27 05:55:00 Jayden Knight [facility] CREATINE KINASE 2021-09-27 04:36:00 Jayden Knight [facility] TROPONIN I 2021-09-27 04:36:00 Jayden Knight [facility] THYROID STIMULATING HORMONE 2021-09-27 04:36:00 Jayden Knight [facility] COMP. METABOLIC PANEL ([id number]) 2021-09-27 04:36:00 Jayden Knight [facility] SALICYLATE 2021-09-27 04:36:00 Jayden Knight [facility] ETHANOL 2021-09-27 04:36:00 Jayden Knight [facility] XR CHEST 1 VW 2021-09-27 04:25:00 Jayden Knight [facility] URINALYSIS 2021-09-27 04:18:00 Jayden Knight [facility] URINE DRUG (IMMUNOASSAY) - COMPREHENSIVE DRUG SCREEN W/O REFLEX 2021-09-27 04:18:00 Jayden Knight [facility] ASSIGNMENT OF BENEFITS 2021-09-27 03:30:08 Docto r Unassigned, [place] [facility] CONSENT/REFUSAL FOR DIAGNOSIS AND TREATMENT 2021-09-27 03:29:46 Doctor Unassigned, [place] [facility] X-RAY OF FOOT 3+ VIEW 2021-06-13 00:00:00 [facility] COLONOSCOPY (ENDO) 2020-12-06 13:34:50 Bob Min [facility] CT LUNG CANCER SCREENING 2020-12-04 20:57:13 Bob Min [facility] BI SCREENING TOMOSYNTHESIS BILATERAL 2020-12-04 20:40:46 Bob Min [facility] HCV ANTIBODY 2013-09-07 15:00:00 Glenny Arreola [facility] Hysterectomy (Total) [facility] Colon Surgery [facility] Cholecystectomy [facility] Plan of Care Planned Activity Planned Date Details Comments Source Diagnostic Test Pending 2023-01-23 00:00:00 hemoglobin A1C, fingerstick [code = hemoglobin A1C, fingerstick] [facility] Diagnostic Test Pending 2023-01-23 00:00:00 CMP, serum or plasma [code = CMP, serum or plasma] [facility] Diagnostic Test Pending 2023-01-23 00:00:00 CBC w/ auto diff [code = CBC w/ auto diff] [facility] Diagnostic Test Pending 2023-01-23 00:00:00 lipid panel, serum [code = lipid panel, serum] [facility] Diagnostic Test Pending 2023-01-23 00:00:00 vitamin D, 25-hydroxy, total, serum [code = vitamin D, 25-hydroxy, total, serum] [facility] Encounters Start Date/Time End Date/Time Encounter Type Admission Type Attending [facility] Care Facility Care Department Encounter ID Source 2023-06-19 13:43:36 Outpatient MIKAYLA MARIA [facility] [id number] [facility] 2023-05-27 12:30:00 Inpatient EM Cristian Laguna [facility] [id number] [facility] 2021-01-15 20:17:20 Emergency [facility] [id number] [facility] 2021-01-15 20:08:02 Emergency [facility] [id number] [facility] 2024-04-02 00:00:00 2024-04-02 00:00:00 Outpatient NICOLETTE ELIAS [facility] [id number] [facility] 2024-03-18 00:00:00 2024-03-18 16:25:15 Martha Riley [facility] 1.2.840.114 350.1.13.10 4.2.7.2.686 [id number] [facility] 2024-03-16 15:00:00 2024-03-16 15:21:15 Outpatient NICOLETTE ELIAS [facility] [id number] [facility] 2024-03-16 15:00:00 2024-03-16 15:21:15 Office Visit Nicolette Blas [facility] 1.2.840.114 350.1.13.10 4.2.7.2.686 [id number] [facility] 2024-03-15 00:00:00 2024-03-16 10:11:09 [facility] 1.2.840.114 350.1.13.10 4.2.7.2.686 [id number] [facility] 2024-03-06 00:00:00 2024-03-06 10:21:52 Telephone [facility] 1.2.840.114 350.1.13.10 4.2.7.2.686 [id number] [facility] 2024-02-27 15:00:00 2024-02-27 15:15:00 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 Visit Lab, Abel - Magdalena Oneill Lab, Ang - Oren [facility] 1.2.840.114 350.1.13.10 4.2.7.2.686 [id number] [facility] 2024-02-27 14:30:00 2024-02-27 14:42:32 Outpatient R MAGDALENA WISE [facility] [id number] [facility] 2024-02-27 14:30:00 2024-02-27 14:42:32 [facility] 1.2.840.114 350.1.13.10 4.2.7.2.686 [id number] [facility] 2024-01-14 00:00:00 2024-02-14 18:19:11 Patient Secure Msg Doctor Unassigned, Macclenny Doctor Unassigned, Macclenny [facility] 1..840.114 350.1.13.10 4.2.7.2.686 [id number] [facility] 2024-01-15 00:00:00 2024-01-16 07:33:17 [facility] 1..840.114 350.1.13.10 4.2.7.2.686 [id number] [facility] 2024-01-14 00:00:00 2024-01-14 10:27:31 Patient Secure Msg Doctor Unassigned, Macclenny Doctor Unassigned, Macclenny [facility] 1..840.114 350.1.13.10 4.2.7.2.686 [id number] [facility] 2024-01-13 00:00:00 2024-01-13 16:29:34 Patient Secure Msg Doctor Unassigned, Macclenny Doctor Unassigned, Macclenny [facility] 1..840.114 350.1.13.10 4.2.7.2.686 [id number] [facility] 2024-01-09 16:30:00 2024-01-09 17:15:49 Outpatient R MARTHA DANGELO [facility] [id number] [facility] 2024-01-09 16:30:00 2024-01-09 17:15:49 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 Visit Lab, Ang - Db Martha Dangelo Lab, Ang - Db [facility] 1..840.114 350.1.13.10 4.2.7.2.686 [id number] [facility] 2024-01-09 15:00:00 2024-01-09 15:45:37 Office Visit Martha Dangelo [facility] 1..840.114 350.1.13.10 4.2.7.2.686 [id number] [facility] 2024-01-09 00:00:00 2024-01-09 10:43:14 Telephone Keisha Beckman Let[facility] 1..840.114 350.1.13.10 4.2.7.2.686 [id number] [facility] 2024-01-09 09:20:00 2024-01-09 09:20:00 Outpatient R CIARAN WEST [facility] [id number] [facility] 2023-12-12 08:00:00 2023-12-12 08:00:00 Outpatient R DARBY BROTHERS CRAIG [facility] [id number] [facility] 2023-12-09 00:00:00 2023-12-09 10:22:46 RefMartha Castellanos [facility] 1..840.114 350.1.13.10 4.2.7.2.686 [id number] [facility] 2023-11-20 08:00:00 2023-11-20 08:00:00 Outpatient CLARIBEL SARABIA PAMELA [facility] [id number] [facility] 2023-10-16 08:00:00 2023-10-16 08:00:00 Outpatient CLARIBEL SARABIA PAMELA [facility] [id number] [facility] 2023-09-09 00:00:00 2023-10-11 18:20:52 Patient Secure Msg Doctor Unassigned, Macclenny [facility] 1..840.114 350.1.13.10 4.2.7.2.686 [id number] [facility] 2023-09-26 07:30:00 2023-09-26 07:30:00 Outpatient R SAMUEL SUE [facility] [id number] [facility] 2023-09-06 00:00:00 2023-09-25 08:14:14 Telephone Madeline Simons [facility] 1..840.114 350.1.13.10 4.2.7.2.686 [id number] [facility] 2023-09-16 19:40:00 2023-09-16 20:06:27 Outpatient R MADELINE SIMONS [facility] [id number] [facility] 2023-09-16 19:40:00 2023-09-16 20:00:00 Nurse Visit Nurse, [facility] Unknown, Attending [facility] 1..840.114 350.1.13.10 4.2.7.2.686 [id number] [facility] 2023-09-16 00:00:00 2023-09-16 10:28:[address] [facility] 1..840.114 350.1.13.10 4.2.7.2.686 [id number] [facility] 2023-09-15 18:00:00 2023-09-15 18:00:00 Outpatient R UNKNOWN, ATTENDING [facility] [id number] [facility] 2023-09-15 00:00:00 2023-09-15 11:50:22 Telephone [facility]angel[facility] 1..840.114 350.1.13.10 4.2.7.2.686 [id number] [facility] 2023-09-11 09:16:29 2023-09-11 23:59:00 Hospital Encounter [facility] 1.2.840.114 350.1.13.10 4.2.7.2.686 [id number] [facility] 2023-09-11 08:15:00 2023-09-11 09:16:34 Outpatient R DARBY BROTHERS DARBY [facility] [id number] [facility] 2023-09-11 08:15:00 2023-09-11 09:16:34 Office Visit Darby Brothers [facility] 1.2.840.114 350.1.13.10 4.2.7.2.686 [id number] [facility] 2023-09-10 09:53:16 2023-09-10 23:59:00 Outpatient R MARTHA DANGELO [facility] [id number] [facility] 2023-09-10 00:00:00 2023-09-10 17:31:14 Telephone Martha Dangelo [facility] 1.2.840.114 350.1.13.10 4.2.7.2.686 [id number] [facility] 2023-09-10 10:00:00 2023-09-10 10:00:00 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 Visit Martha Dangelo, [facility] 1.2.840.1 [id number] 3.104.2.7 .[id number] [facility] 2023-09-10 09:00:00 2023-09-10 09:47:49 Office Visit Martha Dangelo 1.2.840.1 [id number] 3.104.2.7 .[id number] [facility] 2023-09-09 20:30:00 2023-09-09 20:32:24 Outpatient R LUDMILA BEVERLY [facility] [id number] [facility] 2023-09-09 20:30:00 2023-09-09 20:32:24 Nurse Visit Shlomo Ludmila [facility] 1.2.840.1 [id number] 3.104.2.7 .[id number] [facility] 2023-09-09 00:00:00 2023-09-09 00:00:00 Travel 1.2.840.1 [id number] 3.104.2.7 .[id number] .8 1.2.840.114 350.1.13.10 4.2.7.3.698 [id number] [facility] 2023-09-08 18:00:00 2023-09-08 18:00:00 Outpatient R UNKNOWN, ATTENDING [facility] [id number] [facility] 2023-09-06 00:00:00 2023-09-06 18:29:42 Telephone Tae Baldwin 1.2.840.1 62049.1.1 3.104.2.7 .3.442756 .8 [id number] [facility] 2023-08-01 00:00:00 2023-09-06 18:22:56 Patient Secure Yuniel Cline 1.2.840.1 34695.1.1 3.104.2.7 .3.445665 .8 [id number] [facility] 2023-09-05 19:20:00 2023-09-05 19:31:50 Outpatient R MADELINE SIMONS [facility] [id number] [facility] 2023-09-05 19:20:00 2023-09-05 19:31:50 Urgent Care Unknown, Attending Madeline Simons 1.2.840.1 40201.1.1 3.104.2.7 .3.936900 .8 [id number] [facility] 2023-09-04 18:00:00 2023-09-04 18:00:00 Outpatient R UNKNOWN, ATTENDING [facility] [id number] [facility] 2023-09-04 00:00:00 2023-09-04 00:00:00 Travel 1.2.840.1 67200.1.1 3.104.2.7 .3.964472 .8 1.2.840.114 350.1.13.10 4.2.7.3.698 084.8 [id number] [facility] 2023-09-03 00:00:00 2023-09-03 13:59:38 [facility] 1.2.840.1 44715.1.1 3.104.2.7 .3.234916 .8 [id number] [facility] 2023-09-02 19:31:00 2023-09-02 20:45:00 Emergency X [facility] ERT [id number] [facility] 2023-09-02 19:31:00 2023-09-02 20:45:00 Emergency Jose Gleason 1.2.840.1 24531.1.1 3.104.2.7 .3.505801 .8 [id number] [facility] 2023-09-02 00:00:00 2023-09-02 00:00:00 Travel 1.2.840.1 42005.1.1 3.104.2.7 .3.646479 .8 1.2.840.114 350.1.13.10 4.2.7.3.698 084.8 [id number] [facility] 2023-08-29 00:00:00 2023-08-29 15:49:37 Telephone See Min 1.2.840.1 05084.1.1 3.104.2.7 .3.921300 .8 [id number] [facility] 2023-08-25 19:45:19 2023-08-25 23:59:00 Hospital Encounter See Min 1.2.840.1 71062.1.1 3.104.2.7 .3.287960 .8 [id number] [facility] 2023-08-25 19:45:18 2023-08-25 23:59:00 Hospital Encounter See Min 1.2.840.1 90945.1.1 3.104.2.7 .3.395725 .8 [id number] [facility] 2023-08-25 18:20:00 2023-08-25 19:57:17 Outpatient R MINSEE [facility] [id number] [facility] 2023-08-25 18:20:00 2023-08-25 19:57:17 Urgent Care Unknown, Attending See Min 1.2.840.1 33086.1.1 3.104.2.7 .3.139784 .8 [id number] [facility] 2023-08-25 00:00:00 2023-08-25 00:00:00 Travel 1.2.840.1 06208.1.1 3.104.2.7 .3.722274 .8 1.2.840.114 350.1.13.10 4.2.7.3.698 084.8 [id number] [facility] 2023-08-09 16:59:00 2023-08-09 20:10:00 Emergency E YUNIEL CALDERON MHSE MHSE [id number] 08 [facility] 2023-08-05 18:46:00 2023-08-05 19:35:00 Emergency EM Parker Benitez HCACL PERS [id number] [facility] 2023-08-04 18:49:00 2023-08-04 22:15:00 Emergency EM EDDOC, BERNICE HCACL AERS [id number] [facility] 2023-07-31 00:00:00 2023-08-01 16:16:48 Telephone [place] Lisette 1.2.840.1 87335.1.1 3.104.2.7 .3.236552 .8 [id number] [facility] 2023-06-19 00:00:00 2023-07-26 18:13:47 Patient Secure Msg Doctor Unassigned, [place] 1.2.840.1 04765.1.1 3.104.2.7 .3.037163 .8 [id number] [facility] 2023-07-14 15:00:00 2023-07-14 15:00:00 Outpatient R CARLOS GOMES [facility] [id number] [facility] 2023-06-11 00:00:00 2023-07-10 13:55:42 Patient Secure Msg Carlos Gomes 1.2.840.1 33677.1.1 3.104.2.7 .3.498969 .8 [id number] [facility] 2023-07-08 13:30:00 2023-07-08 13:30:00 Outpatient MIKAYLA MARIA [facility] [id number] [facility] 2023-07-07 00:00:00 2023-07-07 13:05:16 Telephone Mikayla Florez 1.2.840.1 41969.1.1 3.104.2.7 .3.789499 .8 [id number] [facility] 2023-06-13 00:00:00 2023-06-29 11:19:28 Telephone Carlos Gomes 1.2.840.1 06161.1.1 3.104.2.7 .3.655436 .8 [id number] [facility] 2023-06-25 00:00:00 2023-06-26 11:10:24 Telephone Mikayla Florez 1.2.840.1 60736.1.1 3.104.2.7 .3.102764 .8 [id number] [facility] 2023-06-21 15:01:36 2023-06-21 23:59:00 Outpatient R MIKAYLA FLOREZ [facility] [id number] [facility] 2023-06-21 15:01:36 2023-06-21 23:59:00 Hospital Encounter Mikayla Florez 1.2.840.1 14022.1.1 3.104.2.7 .3.338446 .8 [id number] [facility] 2023-06-20 00:00:00 2023-06-20 15:48:13 Telephone Mikayla Florez 1.2.840.1 53114.1.1 3.104.2.7 .3.998929 .8 [id number] [facility] 2023-06-19 23:59:59 2023-06-19 23:59:59 Anesthesia Event Caitlin Cuevas 1.2.840.1 91637.1.1 3.104.2.7 .3.991030 .8 [id number] [facility] 2023-06-19 00:00:00 2023-06-19 16:46:54 Telephone Mikayla Florez 1.2.840.1 38071.1.1 3.104.2.7 .3.716008 .8 [id number] [facility] 2023-06-19 14:15:00 2023-06-19 15:38:41 Office Visit Yuniel Thurman 1.2.840.1 14902.1.1 3.104.2.7 .3.205919 .8 [id number] [facility] 2023-06-19 14:15:00 2023-06-19 14:15:00 Outpatient R YUNIEL THURMAN [facility] [id number] [facility] 2023-06-19 00:00:00 2023-06-19 00:00:00 Outpatient Maria Fernanda Rodriguez_FARHANA VFP VF [id number] [facility] 2023-06-19 00:00:00 2023-06-19 00:00:00 Travel 1.2.840.1 73882.1.1 3.104.2.7 .3.077065 .8 1.2.840.114 350.1.13.10 4.2.7.3.698 084.8 [id number] [facility] 2023-06-18 16:15:00 2023-06-18 16:45:00 Office Visit Mikayla Florez 1.2.840.1 76092.1.1 3.104.2.7 .3.759792 .8 [id number] [facility] 2023-06-18 16:15:00 2023-06-18 16:15:00 Outpatient MIKAYLA MARIA [facility] [id number] [facility] 2023-06-18 15:30:00 2023-06-18 15:30:00 Outpatient NEO VILLANUEVA [facility] [id number] [facility] 2023-06-18 00:00:00 2023-06-18 00:00:00 Orders Only Doctor Unassigned, [place] 1.2.840.1 81979.1.1 3.104.2.7 .3.388031 .8 [id number] [facility] 2023-06-18 00:00:00 2023-06-18 00:00:00 Orders Only Doctor Unassigned, Macclenny 1.2.840.1 37789.1.1 3.104.2.7 .3.700478 .8 [id number] [facility] 2023-06-18 00:00:00 2023-06-18 00:00:00 Travel 1.2.840.1 46789.1.1 3.104.2.7 .3.663252 .8 1.2.840.114 350.1.13.10 4.2.7.3.698 084.8 [id number] [facility] 2023-06-17 00:00:00 2023-06-17 15:26:53 Telephone Carlos Gomes 1.2.840.1 44696.1.1 3.104.2.7 .3.855962 .8 [id number] [facility] 2023-06-13 00:00:00 2023-06-13 18:14:25 Nurse Triage Pia Pitt 1.2.840.1 79135.1.1 3.104.2.7 .3.622646 .8 [id number] [facility] 2023-06-12 13:09:00 2023-06-12 19:49:00 Outpatient R CARLOS GOMES [facility] [id number] [facility] 2023-06-12 13:09:00 2023-06-12 19:49:00 Hospital Encounter Carlos Gomes 1.2.840.1 99034.1.1 3.104.2.7 .3.236028 .8 [id number] [facility] 2023-06-12 00:00:00 2023-06-12 18:49:16 Telephone Carlos Gomes 1.2.840.1 12669.1.1 3.104.2.7 .3.201368 .8 [id number] [facility] 2023-06-12 16:50:00 2023-06-12 18:10:00 Anesthesia Event Jenaro Padilla Demetria 1.2.840.1 10609.1.1 3.104.2.7 .3.743767 .8 [id number] [facility] 2023-06-12 13:53:00 2023-06-12 15:36:00 Surgery Carlos Gomes 1.2.840.1 75880.1.1 3.104.2.7 .3.807368 .8 [id number] [facility] 2023-06-09 00:00:00 2023-06-09 00:00:00 Telephone Carlos Gomes [facility] [place] [facility] 1.2.840.114 350.1.13.10 4.2.7.2.686 [id number] [facility] 2023-06-05 00:00:00 2023-06-05 00:00:00 Patient Secure Msg Doctor Unassigned, [place]clenny [facility] 1.2.840.114 350.1.13.10 4.2.7.2.686 [id number] [facility] 2023-06-04 17:18:00 2023-06-04 22:33:00 Emergency DAJA PENG [facility] ERT [id number] [facility] 2023-06-04 17:18:00 2023-06-04 22:33:00 Emergency Jase Flores Katherine [facility] ([facility] 1.2.840.114 350.1.13.10 4.2.7.2.686 [id number] [facility] 2023-06-04 00:00:00 2023-06-04 00:00:00 Telephone Carlos Gomes [facility] [place] [facility] 1.2.840.114 350.1.13.10 4.2.7.2.686 [id number] [facility] 2023-06-04 00:00:00 2023-06-04 00:00:00 Transition of Care Neo Farrell 1.2.840.114 350.1.13.10 4.2.7.2.686 [id number] [facility] 2023-06-01 11:14:00 2023-06-03 16:45:00 Inpatient X JOSE SANCHEZRD, [facility] REA [id number] [facility] 2023-06-01 11:14:00 2023-06-03 16:45:00 Hospital Encounter Domenic Rc Avtar, Calvin Daniel, [facility] ([facility]) 1.2.840.114 350.1.13.10 4.2.7.2.686 [id number] [facility] 2023-06-02 11:45:00 2023-06-02 13:50:00 Surgery [facility] 1.2.840.114 350.1.13.10 4.2.7.2.686 [id number] [facility] 2023-06-02 00:00:00 2023-06-02 00:00:00 Telephone [facility] 1.2.840.114 350.1.13.10 4.2.7.2.686 [id number] [facility] 2023-05-30 02:52:00 2023-05-30 05:02:00 Emergency EM Reid Edwin [facility] AERS [id number] 26 [facility] 2023-05-22 00:00:00 2023-05-22 00:00:00 Outpatient Sil_ Jennifer_MOIRA_MD VFP VFP [id number] [facility] 2023-05-16 00:00:00 2023-05-16 00:00:00 Outpatient Simpson_C_H OU_MD VFP VFP [id number] [facility] 2023-05-08 00:00:00 2023-05-08 00:00:00 Outpatient Simpson_C_H OU_MD VFP VFP [id number] [facility] 2023-05-02 00:00:00 2023-05-02 00:00:00 Outpatient Simpson_C_H OU_MD VFP VFP [id number] [facility] 2023-05-02 00:00:00 2023-05-02 00:00:00 Nataliya Newby MD: [address], [place] [address] , Ph. VFP [place] - [facility] [place] - VM_MOIRA_Leyla Acosta [id number] [facility] 2023-04-11 00:00:00 2023-04-11 00:00:00 Outpatient Simpson_C_H OU_MD VFP VFP [id number] [facility] 2023-04-01 00:00:00 2023-04-01 00:00:00 Outpatient Simpson_C_H OU_MD VFP VFP [id number] [facility] 2023-03-20 07:34:00 2023-03-20 07:34:00 Outpatient Jovana Parnell [facility] [id number] [facility] 2023-03-06 00:00:00 2023-03-06 00:00:00 Outpatient Simpson_C_H OU_MD VFP VFP [id number] [facility] 2023-03-02 00:00:00 2023-03-02 00:00:00 Outpatient Simpson_C_H OU_MD VFP VFP [id number] [facility] 2023-01-29 00:00:00 2023-01-29 00:00:00 Outpatient Simpson_C_H OU_MD VFP VFP [id number] [facility] 2023-01-29 00:00:00 2023-01-29 00:00:00 Outpatient Simpson_C_H OU_MD VFP VFP [id number] [facility] 2023-01-23 00:00:00 2023-01-23 00:00:00 Outpatient Simpson_C_H OU_MD VFP VFP [id number] [facility] 2023-01-23 00:00:00 2023-01-23 00:00:00 Jovana Weber MD: [address] [place] [address] [address], [address], [place] [address] , Ph. VFP [place] - [facility] [place] - VM_HOU_Jesse Yousif ([facility]) [id number] [facility] 2023-01-20 00:00:00 2023-01-20 00:00:00 Outpatient Simpson_C_H OU_MD VFP VFP [id number] [facility] 2022-12-25 00:00:00 2022-12-25 00:00:00 Outpatient Simpson_C_H OU_MD VFP VFP [id number] [facility] 2022-12-25 00:00:00 2022-12-25 00:00:00 Outpatient Simpson_C_H OU_MD VFP VFP [id number] [facility] 2022-11-25 00:00:00 2022-11-25 00:00:00 Outpatient Simpson_C_H OU_MD VFP VFP [id number] [facility] 2022-11-08 00:00:00 2022-11-08 00:00:00 Outpatient Simpson_C_H OU_MD VFP VFP [id number] [facility] 2022-11-08 00:00:00 2022-11-08 00:00:00 Outpatient Simpson_C_H OU_MD VFP VFP [id number] [facility] 2022-10-04 00:00:00 2022-10-04 00:00:00 Outpatient Simpson_C_H OU_MD VFP VFP [id number] [facility] 2022-10-04 00:00:00 2022-10-04 00:00:00 Outpatient Simpson_C_H OU_MD VFP VFP [id number] [facility] 2022-10-04 00:00:00 2022-10-04 00:00:00 Outpatient Simpson_C_H OU_MD VFP VFP [id number] [facility] 2022-10-04 00:00:00 2022-10-04 00:00:00 Outpatient Simpson_C_H OU_MD VFP VFP [id number] [facility] 2022-10-04 00:00:00 2022-10-04 00:00:00 Outpatient Simpson_C_H OU_MD VFP VFP [id number] [facility] 2022-10-04 00:00:00 2022-10-04 00:00:00 Outpatient Simpson_C_H OU_MD VFP VFP [id number] [facility] 2022-10-04 00:00:00 2022-10-04 00:00:00 Outpatient Simpson_C_H OU_MD VFP VFP [id number] [facility] 2022-10-04 00:00:00 2022-10-04 00:00:00 Outpatient Simpson_C_H OU_MD VFP VFP [id number] [facility] 2022-08-30 00:00:00 2022-08-30 00:00:00 Outpatient Simpson_C VFP VFP [id number] [facility] 2022-08-30 00:00:00 2022-08-30 00:00:00 Outpatient Simpson_C_H OU_MD VFP VFP [id number] [facility] 2022-08-29 00:00:00 2022-08-29 00:00:00 Outpatient Simpson_C VFP VFP [id number] [facility] 2022-08-23 00:00:00 2022-08-23 00:00:00 Outpatient Simpson_C VFP VFP [id number] [facility] 2022-08-07 00:00:00 2022-08-07 00:00:00 Outpatient Simpson_C VFP VFP [id number] [facility] 2022-08-06 00:00:00 2022-08-06 00:00:00 Outpatient Simpson_C VFP VFP [id number] [facility] 2022-07-29 00:00:00 2022-07-29 00:00:00 Outpatient Simpson_C VFP VFP [id number] [facility] 2022-07-29 00:00:00 2022-07-29 00:00:00 Outpatient Simpson_C VFP VFP [id number] [facility] 2022-07-12 00:00:00 2022-07-12 00:00:00 Outpatient Simpson_C VFP VFP [id number] [facility] 2022-06-11 00:00:00 2022-06-11 00:00:00 Outpatient Simpson_C VFP VFP [id number] [facility] 2022-06-10 00:00:00 2022-06-10 00:00:00 Outpatient Simpson_C VFP VFP [id number] [facility] 2022-06-07 00:00:00 2022-06-07 00:00:00 Outpatient Simpson_C VFP VFP [id number] [facility] 2022-05-30 00:00:00 2022-05-30 00:00:00 Outpatient Simpson_C VFP VFP [id number] [facility] 2022-05-30 00:00:00 2022-05-30 00:00:00 Jenaro Ying, TIP BANDING MACHINE OPERATOR: [address] [place] [address] , Ph. [place]FP [place] [facility] [place] - VM_HOU_N. Benja GOLDSTEIN) [id number] [facility] 2022-05-14 00:00:00 2022-05-14 00:00:00 Outpatient Simpson_C VFP VFP [id number] [facility] 2022-05-14 00:00:00 2022-05-14 00:00:00 Outpatient Simpson_C VFP VFP [id number] [facility] 2022-05-03 00:00:00 2022-05-03 00:00:00 Outpatient Simpson_C VFP VFP [id number] [facility] 2022-04-25 00:00:00 2022-04-25 00:00:00 Outpatient Simpson_C VFP VFP [id number] [facility] 2022-04-25 00:00:00 2022-04-25 00:00:00 Jenaro Ying, TIP BANDING MACHINE OPERATOR: [address], [address], [place] [address] , Ph. VFP [place] - [facility] [place] - VM_VICKIEU_Jesse Yousif ([facility]) [id number] [facility] 2022-04-23 00:00:00 2022-04-23 00:00:00 Outpatient Simpson_C VFP VFP [id number] [facility] 2022-04-22 00:00:00 2022-04-22 00:00:00 Outpatient Simpson_C VFP VFP [id number] [facility] 2022-04-04 00:00:00 2022-04-04 00:00:00 Outpatient Simpson_C VFP VFP [id number] [facility] 2022-04-04 00:00:00 2022-04-04 00:00:00 Jenaro Ying, TIP BANDING MACHINE OPERATOR: [address], [address], [place] [address] , Ph. 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 VFP [facility] - [place] - VM_ASIF Yousif ([facility]) [id number] [facility] 2021-11-28 00:00:00 2021-11-28 00:00:00 Outpatient Simpson_C VFP VFP [id number] [facility] 2021-11-16 00:00:00 2021-11-16 00:00:00 Outpatient Simpson_C VFP VFP [id number] [facility] 2021-10-26 00:00:00 2021-10-26 00:00:00 Orders Only Doctor Unassigned, Macclenny [facility] 1.2.840.114 350.1.13.10 4.2.7.2.686 [id number] [facility] 2021-10-24 00:00:00 2021-10-24 00:00:00 Outpatient Simpson_C VFP VFP [id number] [facility] 2021-10-20 00:00:00 2021-10-20 00:00:00 Outpatient Simpson_C VFP VFP [id number] [facility] 2021-10-18 00:00:00 2021-10-18 00:00:00 Outpatient Simpson_C VFP VFP [id number] [facility] 2021-10-12 00:00:00 2021-10-12 00:00:00 Outpatient Simpson_C VFP VFP [id number] [facility] 2021-10-11 00:00:00 2021-10-11 00:00:00 Outpatient Simpson_C VFP VFP [id number] [facility] 2021-10-11 00:00:00 2021-10-11 00:00:00 Mary Osullivan, TIP BANDING MACHINE OPERATOR: [address] [place] [address] , Ph. VFP [place] - [facility] - TRISTAN_Haley celestinezahida ([facility]) [id number] [facility] 2021-09-30 00:00:00 2021-09-30 00:00:00 Outpatient Simpson_C VFP VFP [id number] [facility] 2021-09-26 22:51:00 2021-09-27 09:50:00 Emergency X CORI AISHA [facility] ERT [id number] [facility] 2021-09-26 22:51:00 2021-09-27 09:50:00 Emergency Jayden Knight Aisha Chávez [facility] ([facility]) 1.2.840.114 350.1.13.10 4.2.7.2.686 [id number] [facility] 2021-09-09 12:44:00 2021-09-09 12:44:00 Outpatient Simpson_C VFP VFP [id number] [facility] 2021-08-17 02:28:00 2021-08-17 02:28:00 Outpatient Simpson_C VFP VFP [id number] [facility] 2021-08-15 10:00:00 2021-08-15 10:00:00 Outpatient FRANCISCO WANG [facility] [id number] [facility] 2021-08-07 00:00:00 2021-08-07 00:00:00 Telephone Bob Min [facility] 1.2.840.114 350.1.13.10 4.2.7.2.686 [id number] [facility] 2021-07-21 02:06:00 2021-07-21 02:06:00 Outpatient Simpson_C VFP VFP [id number] [facility] 2021-06-17 05:29:00 2021-06-17 05:29:00 Outpatient Simpson_C VFP VFP [id number] [facility] 2021-06-17 05:29:00 2021-06-17 05:29:00 Outpatient Simpson_C VFP VFP [id number] [facility] 2021-06-16 02:26:00 2021-06-16 02:26:00 Outpatient Simpson_C VFP VFP [id number] [facility] 2021-06-14 05:22:00 2021-06-14 05:22:00 Outpatient Simpson_C VFP VFP [id number] [facility] 2021-06-13 09:29:00 2021-06-13 09:29:00 Outpatient Simpson_C VFP VFP [id number] [facility] 2021-06-13 03:42:00 2021-06-13 03:42:00 Outpatient VFP VFP [id number] [facility] 2021-06-13 00:00:00 2021-06-13 00:00:00 Davy Manley MD: [address] [place] [address] , Ph. VFP [place] - [facility] - VM_Haley orozco ([facility]) [id number] [facility] 2021-06-10 03:08:00 2021-06-10 03:08:00 Outpatient Simpson_C VFP VFP [id number] [facility] 2021-06-10 03:08:00 2021-06-10 03:08:00 Outpatient Simpson_C VFP VFP [id number] [facility] 2021-06-08 07:13:00 2021-06-08 07:13:00 Outpatient Simpson_C VFP VFP [id number] [facility] 2021-06-06 05:32:00 2021-06-06 05:32:00 Outpatient Simpson_C VFP VFP [id number] [facility] 2021-05-12 03:08:00 2021-05-12 03:08:00 Outpatient Simpson_C VFP VFP [id number] [facility] 2021-05-01 10:30:00 2021-05-01 10:30:00 Outpatient JOSE VILLAVICENCIO [facility] [id number] [facility] 2021-04-23 08:40:00 2021-04-23 08:40:00 Outpatient BOB ZHENG [facility] [id number] [facility] 2021-04-01 04:08:00 2021-04-01 04:08:00 Outpatient Simpson_C VFP VFP [id number] [facility] 2021-04-01 04:08:00 2021-04-01 04:08:00 Outpatient Simpson_C VFP VFP [id number] [facility] 2021-03-29 10:38:00 2021-03-29 10:38:00 Outpatient Simpson_C VFP VFP [id number] [facility] 2021-03-26 03:43:00 2021-03-26 03:43:00 Outpatient Simpson_C VFP VFP [id number] [facility] 2021-03-22 11:26:00 2021-03-22 11:26:00 Outpatient Simpson_C VFP VFP [id number] [facility] 2021-03-22 00:00:00 2021-03-22 00:00:00 Davy Manley MD: [id number] [place] [address] , Ph. VFP [place] - [facility] - TRISTAN_MOIRAAlexanderMihir orozco ([place]) [id number] [facility] 2021-03-20 08:21:00 2021-03-20 08:21:00 Outpatient Simpson_C VFP VFP [id number] [facility] 2021-03-19 01:56:00 2021-03-19 01:56:00 Outpatient VFP VFP [id number] [facility] 2021-02-20 09:00:00 2021-02-20 09:00:00 Outpatient JOSE VILLAVICENCIO [facility] [id number] [facility] 2021-01-29 09:20:00 2021-01-29 09:20:00 Outpatient BOB ZHENG [facility] [id number] [facility] 2021-01-29 00:00:00 2021-01-29 00:00:00 Telephone Bob Min [facility] 1..114 350.1.13.10 4.2.7.2.686 [id number] [facility] 2021-01-29 00:00:00 2021-01-29 00:00:00 Patient Secure Msg Doctor Unassigned, [place] [facility] 1.2.114 350.1.13.10 4.2.7.2.686 [id number] [facility] 2021-01-26 13:15:00 2021-01-26 13:15:00 Outpatient R UNKNOWN, ATTENDING [facility] [id number] [facility] 2021-01-26 13:15:00 2021-01-26 13:15:00 Outpatient R UNKNOWN, ATTENDING [facility] [id number] [facility] 2021-01-16 10:12:18 2021-01-16 10:53:24 Office Visit Francisco Gaming [facility] 1..114 350.1.13.10 4.2.7.2.686 [id number] [facility] 2021-01-16 10:00:00 2021-01-16 10:53:24 Outpatient FRANCISCO WANG [facility] [id number] [facility] 2021-01-16 10:00:00 2021-01-16 10:00:00 Outpatient FRANCISCO WANG [facility] [id number] [facility] 2021-01-16 00:00:00 2021-01-16 00:00:00 Patient Outreach Zahraa Soliz [facility] 1.114 350.1.13.10 4.2.7.2.686 [id number] [facility] 2021-01-16 00:00:00 2021-01-16 00:00:00 Patient Outreach Zahraa Soliz [facility] 1.2.840.114 350.1.13.10 4.2.7.2.686 [id number] [facility] 2020-12-29 09:26:19 2020-12-29 10:17:16 Office Visit Min Bob [facility] 1.2.840.114 350.1.13.10 4.2.7.2.686 [id number] [facility] 2020-12-29 09:20:00 2020-12-29 09:20:00 Outpatient R BOB MIN [facility] [id number] [facility] 2020-12-26 00:00:00 2020-12-26 00:00:00 Telephone Pako Bob [facility] 1.2.840.114 350.1.13.10 4.2.7.2.686 [id number] [facility] 2020-12-21 16:14:57 2020-12-21 16:29:57 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 Visit [facility] Pako Bob [facility] 1.2.840.114 350.1.13.10 4.2.7.2.686 [id number] [facility] 2020-12-21 08:36:11 2020-12-21 09:33:21 Office Visit Bob Min [facility] [facility] 1.2.840.114 350.1.13.10 4.2.7.2.686 [id number] [facility] 2020-12-21 08:40:00 2020-12-21 08:40:00 Outpatient R BOB MIN [facility] [id number] [facility] 2020-12-20 10:30:00 2020-12-20 10:30:00 Outpatient R [facility] [id number] [facility] 2020-12-20 00:00:00 2020-12-20 00:00:00 Telephone Bob Min [facility] 1.0.114 350.1.13.10 4.2.7.2.686 [id number] 044 [id number] [facility] 2020-12-18 00:00:00 2020-12-18 00:00:00 [facility] [place] [facility] 1..114 350.1.13.10 4.2.7.2.686 [id number] 044 [id number] [facility] 2020-12-14 00:00:00 2020-12-14 00:00:00 Patient Secure Abdelrahman Dempsey [facility] 1..114 350.1.13.10 4.2.7.2.686 [id number] [facility] 2020-12-13 08:47:34 2020-12-13 09:02:34 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 Visit Vt-Samuel [facility] [place] [facility] 1..114 350.1.13.10 4.2.7.2.686 [id number] [facility] 2020-12-13 08:45:00 2020-12-13 08:45:00 Outpatient R SAMUEL GUZMÁN [facility] [id number] [facility] 2020-12-11 00:00:00 2020-12-11 00:00:00 Refill Pako [facility] 1..114 350.1.13.10 4.2.7.2.686 [id number] 044 [id number] [facility] 2020-12-08 08:25:50 2020-12-08 08:40:50 Office Visit Yuniel Thurman [facility] 1.840.114 350.1.13.10 4.2.7.2.686 [id number] [facility] 2020-12-08 08:15:00 2020-12-08 08:15:00 Outpatient YUNIEL BANEGAS [facility] [id number] [facility] 2020-12-06 09:45:00 2020-12-06 10:45:00 Surgery Abdelrahman Madden [facility] 1..114 350.1.13.10 4.2.7.2.686 [id number] [facility] 2020-12-06 09:15:00 2020-12-06 09:15:00 Outpatient YUNIEL BANEGAS [facility] [id number] [facility] 2020-12-06 00:00:00 2020-12-06 00:00:00 Telephone Pak[address] Bob [facility] 1..114 350.1.13.10 4.2.7.2.686 [id number] 044 [id number] [facility] 2020-12-06 00:00:00 2020-12-06 00:00:00 Orders Only Doctor Unassigned, [place] [facility] 1.0.114 350.1.13.10 4.2.7.2.686 [id number] [facility] 2020-12-04 15:20:00 2020-12-04 23:59:00 Hospital Encounter Bob Min [facility] 1.840.114 350.1.13.10 4.2.7.2.686 [id number] [facility] 2020-12-04 16:01:08 2020-12-04 16:16:08 Laboratory Only Only, Lcc Test Unknown, Attending [facility] 1.2.840.114 350.1.13.10 4.2.7.2.686 [id number] [facility] 2020-12-04 14:45:00 2020-12-04 15:19:00 Hospital Encounter Pako Bob [facility] 1..114 350.1.13.10 4.2.7.2.686 [id number] [facility] 2020-12-04 00:00:00 2020-12-04 00:00:00 Outpatient R PAKO BOB [facility] [id number] [facility] 2020-12-01 11:13:31 2020-12-01 12:40:21 Office Visit aNzanin [facility] 1..114 350.1.13.10 4.2.7.2.686 [id number] [facility] 2020-12-01 11:13:31 2020-12-01 12:40:21 Office Visit Nazanin [facility] 1..114 350.1.13.10 4.2.7.2.686 [id number] [facility] 2020-12-01 11:15:00 2020-12-01 11:15:00 Outpatient R NAZANIN [facility] [id number] [facility] 2020-12-01 08:34:32 2020-12-01 09:04:32 Office Visit Francisco [employer] [facility] 1.2.840.114 350.1.13.10 4.2.7.2.686 [id number] [facility] 2020-12-01 08:34:32 2020-12-01 09:04:32 Office Visit Francisco [employer] [facility] 1.2840.114 350.1.13.10 4.2.7.2.686 [id number] [facility] 2020-12-01 08:30:00 2020-12-01 08:30:00 Outpatient Jhonathan FRANCISCO GAMING [facility] [id number] [facility] 2020-12-01 00:00:00 2020-12-01 00:00:00 Orders Only Doctor Unassigned, Macclenny [facility] 1.840.114 350.1.13.10 4.2.7.2.686 [id number] [facility] 2020-11-29 09:06:46 2020-11-29 09:50:07 Office Visit [facility] 1.20.114 350.1.13.10 4.2.7.2.686 [id number] 044 [id number] [facility] 2020-11-29 09:06:46 2020-11-29 09:50:07 Office Visit Bob Min [facility] 1.2840.114 350.1.13.10 4.2.7.2.686 [id number] [facility] 2020-11-29 09:00:00 2020-11-29 09:00:00 Outpatient R BOB MIN [facility] [id number] [facility] 2020-11-29 00:00:00 2020-11-29 00:00:00 Telephone Bob Min [facility] 1.2.114 350.1.13.10 4.2.7.2.686 [id number] [facility] 2020-11-28 00:00:00 2020-11-28 00:00:00 Telephone [facility] 1.2.840.114 350.1.13.10 4.2.7.2.686 [id number] [id number] [facility] 2020-11-28 00:00:00 2020-11-28 00:00:00 Telephone [facility] 1.2.840.114 350.1.13.10 4.2.7.2.686 [id number] [id number] [facility] 2020-11-28 00:00:00 2020-11-28 00:00:00 Telephone [facility] 1.2.840.114 350.1.13.10 4.2.7.2.686 [id number] [id number] [facility] 2020-11-28 00:00:00 2020-11-28 00:00:00 [facility] 1.2.840.114 350.1.13.10 4.2.7.2.686 [id number] [id number] [facility] 2020-11-27 13:12:13 2020-11-27 14:16:37 Office Visit Yuniel Thurman [facility] 1.2.840.114 350.1.13.10 4.2.7.2.686 [id number] [facility] 2020-11-27 13:12:13 2020-11-27 14:16:37 Office Visit Yuniel Thurman [facility] 1.2.840.114 350.1.13.10 4.2.7.2.686 [id number] [facility] 2020-11-27 13:00:00 2020-11-27 13:00:00 Outpatient Jhonathan RODRIGOYUNIEL CUNNINGHAM [facility] [id number] [facility] 2020-11-24 00:00:00 2020-11-24 00:00:00 Telephone [facility] 1.2.840.114 350.1.13.10 4.2.7.2.686 [id number] [facility] 2020-11-24 00:00:00 2020-11-24 00:00:00 [facility] 1.840.114 350.1.13.10 4.2.7.2.686 [id number] [facility] 2020-11-23 00:00:00 2020-11-23 00:00:00 [facility] 1.2.840.114 350.1.13.10 4.2.7.2.686 [id number] [facility] 2020-11-23 00:00:00 2020-11-23 00:00:00 [facility] 1.2840.114 350.1.13.10 4.2.7.2.686 [id number] 044 [id number] [facility] 2020-11-22 11:21:37 2020-11-22 11:36:37 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 Visit [facility] 1.2840.114 350.1.13.10 4.2.7.2.686 [id number] [facility] 2020-11-22 11:21:37 2020-11-22 11:36:37 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 Visit [facility] 1.2.840.114 350.1.13.10 4.2.7.2.686 [id number] [facility] 2020-11-22 10:27:09 2020-11-22 10:47:09 Office Visit Pako [facility] 1.2.840.114 350.1.13.10 4.2.7.2.686 [id number] 044 [id number] [facility] 2020-11-22 10:27:09 2020-11-22 10:47:09 Office [facility] 1.2.840.114 350.1.13.10 4.2.7.2.686 [id number] [facility] 2020-11-22 10:40:00 2020-11-22 10:40:00 [facility] [id number] [facility] 2020-11-22 00:00:00 2020-11-22 00:00:00 Orders Only Doctor Unassigned, Macclenny [facility] 1.840.114 350.1.13.10 4.2.7.2.686 [id number] [facility] 2020-11-22 00:00:00 2020-11-22 00:00:00 Orders Only Doctor Unassigned, Macclenny [facility] 1.2840.114 350.1.13.10 4.2.7.2.686 [id number] [facility] 2020-11-17 12:22:00 2020-11-17 17:28:00 Emergency [facility] ([facility] 1.2.840.114 350.1.13.10 4.2.7.2.686 [id number] [facility] 2020-11-17 12:22:00 2020-11-17 17:28:00 Emergency [facility] ([facility]) 1.2.840.114 350.1.13.10 4.2.7.2.686 [id number] [id number] [facility] 2020-11-16 21:09:00 2020-11-17 00:08:00 Emergency [facility] ([facility]) 1.2.840.114 350.1.13.10 4.2.7.2.686 [id number] [facility] 2020-11-16 21:09:00 2020-11-17 00:08:00 Emergency [facility] ([facility]) 1.2.840.114 350.1.13.10 4.2.7.2.686 [id number] [facility] 2020-11-17 00:00:00 2020-11-17 00:00:00 Nurse Triage [facility] 1.2.840.114 350.1.13.10 4.2.7.2.686 [id number] [facility] 2020-11-17 00:00:00 2020-11-17 00:00:00 Nurse Triage [facility] 1.2.840.114 350.1.13.10 4.2.7.2.686 [id number] [facility] 2020-03-13 09:45:00 2020-03-13 09:45:00 Outpatient GINI REDDING [facility] [id number] [facility] Results Test Description Test Time Test Comments Results Result Co mments Source [facility] HospitalMitochondrial M2 Ab, [id number] 05:24:49* Test Item Value Reference Range Interpretation Comme nts AMA (test code = 18561-8) 1.8 0.0-24.9 REFERENCE INTERV AL: Mitochondrial (M2) Antibody, IgG ? ?20.0 Units or less ......... Negative ?20.1 - 24.9 Units........... Equivocal ?25.0 Units or greater....... Positive Anti-mitochondrial antibodies (AMA) are thought to be present in 90-95% of patients with primary biliary cholangitis (PBC). However, the frequency of detected antibodies may be cohort or assay dependent, as lower sensitivities have been reported. Not all PBC patients are positive for AMA; some patients may be positive for SP100 and/or GP210 antibodies. A negative result does not rule out PBC.Performed By: [facility] [place] [id number] Director: Cristian Silva MD, PhDCLIA Number: [id number] [facility] HospitalAnti-Nuclear Antibody-Pathologist [id number] 02:14:56ANA - Pathologist InterpretationANA HEp-2 IIFA Pathologist Interpretation Report Patient Name: Maritza Washington? ?Antinuclear Antibody (CHRIAG) Test (Anti-Cell Antibodies Test) Indirect Immu nofluorescence [...] MD ?01/13/2024 ?9:14 PM 01/13/2024 9:[address] [facility] HospitalAnti-Nuclear Antibody [id number] 21:23:34 * Test Item Value Reference Range Interpretation Comme [facility] CHIRAG Titer by IFA (test code = 4585273940) 1:160 CHIRAG Pattern (test code = 5948636855) Speckled LUCIUS (test code = LUCIUS) Anti-nuclear [...] specimen will be held for 7 days. [facility] HospitalAnti-Nuclear Antibody [id number] 21:44:16* Test Item Value Reference Range Interpretation Comme [facility] CHIRAG (test code = 7060684984) Positive Negative A LUCIUS (test code = LUCIUS) Negative: ?No Anti-Nuclear Antibodies detected by IFA. Positive: ?CHIRAG IFA screen performed with a 1:80 dilution in adults and a 1:40 dilution in pediatrics. ?A titer is performed and reported separately when the CHIRAG is "Positive" or when "Cytoplasmic staining is observed." Lab Interpretation (test code = 86613-2) Abnormal [facility] HospitalHav Antibody (IgG and IgM)2024-01-10 07:21:32 * Test Item Value Reference Range Interpretation Comme [facility] HAV Total (test code = 9776155107) Positive HAVT Semi-Quantitative (test code = 3140983785) 0.07 LUCIUS (test code = LUCIUS) Indicates past or present infection with HAV or exposure to HAV due to vaccination. [facility] HospitalHepatitis B Surface [id number] 07:09:56* Test Item Value Reference Range Interpretation Comme [facility] HBsAB (test code = 0760913306) Negative HBsAb Semi-Quantitative (test code = 4309367034) 0.10 mIU/mL LUCIUS (test code = LUCIUS) Interpretation: ?Hepatitis B Surface Antibody ? Negative - Patient is considered to be not immune to infection with HBV. ? ? Positive - Anti-HBs detected at greater than or equal to 12 mIU/mL. ?Patient is considered to be immune to infection with HBV. ? [facility] HospitalHcv Yzegzjxp7437-30-24 07:09:56* Test Item Value Reference Range Interpretation Comme [facility] HCV Ab (test code = 75841-3) Negative HCV Semi-Quantitative (test code = 97863-3) 0.07 [facility] HospitalTriiodothyronine2024-10-26 07:01:13* Test Item Value Reference Range Interpretation Comme nts T3 (test code = 7060666222) 112.0 ng/dL 97.0-170.0 Lab Interpretation (test cod e = 82039-5) Normal [facility] HospitalHepatitis B Surface [id number] 06:52:48 * Test Item Value Reference Range Interpretation Comme nts HBsAg Semi-Quantitative (jocelyne t code = 5195-3) 0.10 Negative [facility] HospitalComp. Metabolic Panel (64457)2024-01-09 23:57:24* Test Item Value Reference Range Interpretation Comme nts NA (test code = 7339871070) 140 mmol/L 135-145 K (test code = 3628076384) 4.2 mmol/L 3.5-5.0 CL (test code = 9584555012) 103 mmol/L 98-108 CO2 TOTAL (test code = 1931658914) 32 mmol/L 23-31 H AGAP (test code = 0575315753) 5 2-16 BUN (test code = 0358263975) 24 mg/dL 7-23 H GLUCOSE (test code = 5549138428) 112 mg/dL 70-110 H CREATININE (test code = 2160-0) 1.17 mg/dL 0.50-1.04 H TOTAL BILI (test code = 0267580393) 0.8 mg/dL 0.1-1.1 CALCIUM (test code = 7810406250) 10.5 mg/dL 8.6-10.6 T PROTEIN (test code = 7989478513) 7.2 g/dL 6.3-8.2 ALBUMIN (test code = 0433709449) 4.2 g/dL 3.5-5.0 ALK PHOS (test code = 9745606391) 98 U/L 34-122 ALTv (test code = 1742-6) 64 U/L 5-35 H AST(SGOT) (test code = 1571124468) 39 U/L 13-40 eGFR (test code = 12378-3) 53.9 mL/min/1.73m2 CKD-EPI eGFR (2020). Assuming creatinine has been stable day-to-day for at least three months, the eGFR indicates Category G3a (45 - 59 mL/min/1.73 m2) Lab Interpretation (test code = 50799-9) Abnormal [facility] HospitalPOME Urinalysis W Specific Wnkkrxu5611-21-93 21:53:00* Test Item Value Reference Range Interpretation [...] 3267) Lab Interpretation (test cod e = 93821-2) Abnormal [facility] Sp[facility] HospitalGlycosylated Hemoglobin (A1C)2023-09-11 01:04:49* Test Item Value Reference Range Interpretation Comme nts HGB A1C (test code = 4548-4) 5.8 % 4.0-5.7 H LUCIUS (test code = LUCIUS) Reference RangesNormal: <5.7%Prediabetes: 5.7 - 6.4%Diabetes: > 6.5% Lab Interpretation (test code = 31966-5) Abnormal [facility] Spine HospitalFr [id number] 23:46:07* Test Item Value Reference Range Interpretation Comme nts FREE T4 (test code = 0664392571) 0.96 0.78-2.20 Lab Interpretation (test cod e = 13301-9) Normal [facility] Sp[facility] HospitalThyroid Stimulating Qmdxexe3688-27-90 20:15:52 * Test Item Value Reference Range Interpretation Comme nts TSH (test code = 6044726923) 8.75 0.45-4.70 H Lab Interpretation (test cod e = 38694-8) Abnormal [facility] Spine HospitalLipid Panel (44322)(Total Cholesterol, Triglycerides, HDL)2023-09-10 19:47:06* Test Item Value Reference Range Interpretation Comme nts CHOL (test code = 2417215754) 100 mg/dL 120-200 L HDL (test code = 6263699684) 47 mg/dL >=50 L HDLC RATIO (test code = 6767305733) 2.1 <=4.5 TRIG (test code = 3538974137) 65 mg/dL 30-170 LDL CHOL (test code = 03235-7) 40 mg/dL <=160 VLDL (test code = 3488288450) 13 mg/dL 5-60 Lab Interpretation (test cod e = 98822-3) Abnormal [facility] HospitalComp. Metabolic Panel (63273)2023-09-10 19:46:45* Test Item Value Reference Range Interpretation Comme nts NA (test code = 8378695706) 143 mmol/L 135-145 K (test code = 9738943273) 3.9 mmol/L 3.5-5.0 CL (test code = 6392294374) 105 mmol/L 98-108 CO2 TOTAL (test code = 9288539922) 30 mmol/L 23-31 AGAP (test code = 0071069242) 8 2-16 BUN (test code = 1257836922) 16 mg/dL 7-23 GLUCOSE (test code = 4265632252) 91 mg/dL 70-110 CREATININE (test code = 2160-0) 0.88 mg/dL 0.50-1.04 TOTAL BILI (test code = 5185826366) 0.6 mg/dL 0.1-1.1 CALCIUM (test code = 1851003551) 10.5 mg/dL 8.6-10.6 T PROTEIN (test code = 6184715319) 6.5 g/dL 6.3-8.2 ALBUMIN (test code = 2374335535) 4.0 g/dL 3.5-5.0 ALK PHOS (test code = 7825863696) 159 U/L 34-122 H ALTv (test code = 1742-6) 74 U/L 5-35 H AST(SGOT) (test code = 9319189324) 45 U/L 13-40 H eGFR (test code = 00238-2) 75.8 mL/min/1.73m2 CKD-EPI eGFR (2020). Assuming creatinine has been stable day-to-day for at least three months, the eGFR indicates Category G2 (60 - 89 mL/min/1.73 m2) Lab Interpretation (test code = 76187-9) Abnormal [facility] with Utzn9066-29-44 19:46:05* Test Item Value Reference Range Interpretation [...] 32.4 g/dL 31.6-35.1 RDW-SD (test code = 89732-3) 46.5 fL 39.0-49.9 RDW-CV (test code = 788-0) 13.2 % 12.0-15.5 PLT (test code = 777-3) 235 166-358 MPV (test code = 37314-3) 11.6 fL 9.5-12.9 NRBC/100 WBC (test code = 2802532156) 0.0 0.0-10.0 NRBC x10^3 (test code = 5860159646) See_Comment [Automated [employer] ge] The system which generated this result transmitted reference range: 10*3/?L. The reference range was not used to interpret this result as normal/abnormal. GRAN MAT (NEUT) % (test code = 770-8) 68.6 % IMM GRAN % (test code = 4427053652) 0.20 % LYMPH % (test code = 736-9) 19.4 % MONO % (test code = 5905-5) 8.2 % EOS % (test code = 713-8) 2.5 % BASO % (test code = 706-2) 1.1 % GRAN MAT x10^3(ANC) (test code = 3042847967) 3.86 10*3/uL 1.88-7.09 IMM GRAN x10^3 (test code = 3157153375) 0.00-0.06 LYMPH x10^3 (test code = 731-0) 1.09 10*3/uL 1.32-3.29 L MONO x10^3 (test code = 742-7) 0.46 10*3/uL 0.33-0.92 EOS x10^3 (test code = 711-2) 0.14 10*3/uL 0.03-0.39 BASO x10^3 (test code = 704-7) 0.06 10*3/uL 0.01-0.07 Lab Interpretation (test code = 60179-4) Abnormal [facility] HospitalXR HAND 3+ VW [id number] 02:24:03EXAM: XR HAND 3+ VW RIGHT HISTORY: 58 years old Female; right thumb pain COMPARISON: None FINDINGS:Radiographs of the right hand demonstrate soft tissue swelling about thethumb without underlying acute fracture. 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 Generalized osteopenia isnoted.[facility] Sp[facility] HospitalREFERRAL- REQUEST/[id number] 21:13:52Ordered by an unspecified provider.[facility] Spine HospitalFL TIME OR (NON-REPORTABLE)2023-06-17 14:39:42These images do not require a Radiology diagnostic report.[facility] Spine HospitalUrine Culture 2023-06-14 11:52:56* Test Item Value Reference Range Interpretation Comme nts URINE CULTURE (test code = 630-4) No aerobic growth (< 1000 CFU/mL) [facility] Spine HospitalIntubation2024-03-28 21:52:00Jenaro Padilla MD ? ? 06/12/2023 [...] of attempts at approach: 1Ventilation between attempts: [facility]Un[facility] ([facility]ATED)2023-06-12 18:36:22* Test Item Value Reference Range Interpretation Comme nts POCT GLU (test code = 1428223970) 86 mg/dL 70-110 Lab Interpretation (test cod e = 60114-4) Normal [facility] GLUCOSE (AUTOMATED)2023-06-12 18:36:22* Test Item Value Reference Range Interpretation Comme nts POCT GLU (test code = 3106478296) 86 mg/dL 70-110 Lab Interpretation (test cod e = 20324-4) Normal [facility] GLUCOSE (AUTOMATED)2023-06-12 18:36:22* Test Item Value Reference Range Interpretation Comme nts POCT GLU (test code = 4392117157) 86 mg/dL 70-110 Lab Interpretation (test cod e = 93411-6) Normal [facility]. METABOLIC PANEL ([id number])2023-06-05 01:00:22* Test Item Value Reference Range Interpretation Comme nts NA (test code = 5092846196) 137 mmol/L 135-145 K (test code = 4777056746) 3.9 mmol/L 3.5-5.0 CL (test code = 1593915801) 101 mmol/L 98-108 CO2 TOTAL (test code = 8654517846) 28 mmol/L 23-31 AGAP (test code = 2444981268) 8 2-16 BUN (test code = 2010096086) 17 mg/dL 7-23 GLUCOSE (test code = 5045418814) 62 mg/dL 70-110 L CREATININE (test code = 2160-0) 1.04 mg/dL 0.50-1.04 TOTAL BILI (test code = 5319094279) 0.5 mg/dL 0.1-1.1 CALCIUM (test code = 6007753329) 9.2 mg/dL 8.6-10.6 T PROTEIN (test code = 2931077646) 6.8 g/dL 6.3-8.2 ALBUMIN (test code = 0097764481) 3.8 g/dL 3.5-5.0 ALK PHOS (test code = 8474396743) 237 U/L 34-122 H ALTv (test code = 1742-6) 119 U/L 5-35 H AST(SGOT) (test code = 7316228594) 59 U/L 13-40 H eGFR (test code = 17176-2) 62.0 mL/min/1.73m2 CKD-EPI eGFR (2020). Assuming creatinine has been stable day-to-day for at least three months, the eGFR indicates Category G2 (60 - 89 mL/min/1.73 m2) Lab Interpretation (test code = 15838-2) Ab[facility] WITH [id number] 00:59:46* Test Item Value Reference Range Interpretation [...] 34.4 g/dL 31.6-35.1 RDW-SD (test code = 53125-2) 41.2 fL 39.0-49.9 RDW-CV (test code = 788-0) 12.4 % 12.0-15.5 PLT (test code = 777-3) 306 166-358 MPV (test code = 38946-1) 10.5 fL 9.5-12.9 NRBC/100 WBC (test code = 9124021569) 0.0 0.0-10.0 NRBC x10^3 (test code = 1122612769) See_Comment [Automated messa ge] The system which generated this result transmitted reference range: 10*3/?L. The reference range was not used to interpret this result as normal/abnormal. GRAN MAT (NEUT) % (test code = 770-8) 66.4 % IMM GRAN % (test code = 5385363322) 0.50 % LYMPH % (test code = 736-9) 13.9 % MONO % (test code = 5905-5) 14.3 % EOS % (test code = 713-8) 4.4 % BASO % (test code = 706-2) 0.5 % GRAN MAT x10^3(ANC) (test code = 6692972598) 6.19 10*3/uL 1.88-7.09 IMM GRAN x10^3 (test code = 3544797896) 0.05 10*3/uL 0.00-0.06 LYMPH x10^3 (test code = 731-0) 1.30 10*3/uL 1.32-3.29 L MONO x10^3 (test code = 742-7) 1.34 10*3/uL 0.33-0.92 H EOS x10^3 (test code = 711-2) 0.41 10*3/uL 0.03-0.39 H BASO x10^3 (test code = 704-7) 0.05 10*3/uL 0.01-0.07 Lab Interpretation (test code = 52503-0) Abnormal [facility] GLUCOSE (AUTOMATED)2023-06-03 17:26:28* Test Item Value Reference Range Interpretation Comme nts POCT GLU (test code = 0143114060) 188 mg/dL 70-110 H Lab Interpretation (test cod e = 05125-5) Abnormal [facility] GLUCOSE (AUTOMATED)2023-06-03 17:26:28* Test Item Value Reference Range Interpretation Comme nts POCT GLU (test code = 1096088394) 188 mg/dL 70-110 H Lab Interpretation (test cod e = 54288-4) Abnormal [facility] GLUCOSE (AUTOMATED)2023-06-03 12:58:09* Test Item Value Reference Range Interpretation Comme nts POCT GLU (test code = 5491539323) 219 mg/dL 70-110 H Lab Interpretation (test cod e = 76758-7) Abnormal [facility] GLUCOSE (AUTOMATED)2023-06-03 12:58:09* Test Item Value Reference Range Interpretation Comme nts POCT GLU (test code = 9985871684) 219 mg/dL 70-110 H Lab Interpretation (test cod e = 52685-3) Abnormal [facility] GLUCOSE (AUTOMATED)2023-06-03 08:12:22* Test Item Value Reference Range Interpretation Comme nts POCT GLU (test code = 3882292414) 198 mg/dL 70-110 H Lab Interpretation (test cod e = 89965-6) Abnormal [facility] GLUCOSE (AUTOMATED)2023-06-03 08:12:22* Test Item Value Reference Range Interpretation Comme nts POCT GLU (test code = 0135971501) 198 mg/dL 70-110 H Lab Interpretation (test cod e = 56889-9) Abnormal [facility] GLUCOSE (AUTOMATED)2023-06-03 05:04:01* Test Item Value Reference Range Interpretation Comme nts POCT GLU (test code = 0977534197) 330 mg/dL 70-110 H Lab Interpretation (test cod e = 09241-8) Abnormal [facility] GLUCOSE (AUTOMATED)2023-06-03 05:04:01* Test Item Value Reference Range Interpretation Comme nts POCT GLU (test code = 0366629213) 330 mg/dL 70-110 H Lab Interpretation (test cod e = 92194-2) Abnormal [facility] GLUCOSE (AUTOMATED)2023-06-03 01:51:02* Test Item Value Reference Range Interpretation Comme nts POCT GLU (test code = 2321617402) 418 mg/dL 70-110 H Lab Interpretation (test cod e = 48857-8) Abnormal [facility] GLUCOSE (AUTOMATED)2023-06-03 01:51:02* Test Item Value Reference Range Interpretation Comme nts POCT GLU (test code = 1565158814) 418 mg/dL 70-110 H Lab Interpretation (test cod e = 71425-5) Abnormal [facility] GLUCOSE (AUTOMATED)2023-06-02 21:47:04* Test Item Value Reference Range Interpretation Comme nts POCT GLU (test code = 6042851495) 192 mg/dL 70-110 H Lab Interpretation (test cod e = 66707-7) Abnormal [facility] GLUCOSE (AUTOMATED)2023-06-02 21:47:04* Test Item Value Reference Range Interpretation Comme nts POCT GLU (test code = 7670693699) 192 mg/dL 70-110 H Lab Interpretation (test cod e = 30931-2) Abnormal [facility] TIME OR (NON-REPORTABLE)2023-06-02 18:12:07 These images do not require a Radiology diagnostic report.[facility] TIME OR (NON-REPORTABLE)2023-06-02 18:12:07These images do not require a Radiology diagnostic report.[facility] GLUCOSE (AUTOMATED)2023-06-02 01:58:20* Test Item Value Reference Range Interpretation Comme nts POCT GLU (test code = 0239577013) 193 mg/dL 70-110 H Lab Interpretation (test cod e = 95858-6) Abnormal [facility] GLUCOSE (AUTOMATED)2023-06-02 01:58:20* Test Item Value Reference Range Interpretation Comme nts POCT GLU (test code = 5295916421) 193 mg/dL 70-110 H Lab Interpretation (test cod e = 76743-1) Abnormal [facility] GLUCOSE (AUTOMATED)2023-06-01 22:27:31* Test Item Value Reference Range Interpretation Comme nts POCT GLU (test code = 3717870832) 98 mg/dL 70-110 Lab Interpretation (test cod e = 35828-2) Normal [facility] GLUCOSE (AUTOMATED)2023-06-01 22:27:31* Test Item Value Reference Range Interpretation Comme nts POCT GLU (test code = 3023438065) 98 mg/dL 70-110 Lab Interpretation (test cod e = 39060-0) Normal [facility] Glucose (Age >30 Days)2023-06-01 22:27:00 * Test Item Value Reference Range Interpretation Comme nts POCT Glu (age>30days) (test code = 3342) 98 mg/dL 70-110 Lab Interpretation (test cod e = 36154-9) Normal [facility] Glucose (Age >30 Days)2023-06-01 22:27:00 * Test Item Value Reference Range Interpretation Comme nts POCT Glu (age>30days) (test code = 3342) 98 mg/dL 70-110 Lab Interpretation (test cod e = 89741-0) [facility] [id number] 18:01:12Chest, two views History: ?cough [facility] [id number] 18:01:12Chest, two views History: ?cough [facility]ing Phys[facility] [id number] 17:53:09EXAM: CT ABDOMEN AND PELVIS WITHOUT CONTRAST [...] No suspicious lytic or sclerotic bony lesions.[facility] ABDOMEN PELVIS WO CONTRAST 2023-06-01 17:53:09EXAM: [...] TISSUES: No suspicious lytic or sclerotic bony lesions.[facility] WITH [id number] 17:05:51* Test Item Value Reference Range Interpretation [...] 34.1 g/dL 31.6-35.1 RDW-SD (test code = 39495-7) 41.0 fL 39.0-49.9 RDW-CV (test code = 788-0) 12.1 % 12.0-15.5 PLT (test code = 777-3) 273 166-358 MPV (test code = 05126-4) 10.6 fL 9.5-12.9 NRBC/100 WBC (test code = 3088532995) 0.0 0.0-10.0 NRBC x10^3 (test code = 3759647051) See_Comment [Automated messa ge] The system which generated this result transmitted reference range: 10*3/?L. The reference range was not used to interpret this result as normal/abnormal. GRAN MAT (NEUT) % (test code = 770-8) 75.9 % IMM GRAN % (test code = 2818388333) 0.30 % LYMPH % (test code = 736-9) 10.6 % MONO % (test code = 5905-5) 12.3 % EOS % (test code = 713-8) 0.5 % BASO % (test code = 706-2) 0.4 % GRAN MAT x10^3(ANC) (test code = 2884368449) 9.36 10*3/uL 1.88-7.09 H IMM GRAN x10^3 (test code = 5313050594) 0.04 10*3/uL 0.00-0.06 LYMPH x10^3 (test code = 731-0) 1.30 10*3/uL 1.32-3.29 L MONO x10^3 (test code = 742-7) 1.51 10*3/uL 0.33-0.92 H EOS x10^3 (test code = 711-2) 0.06 10*3/uL 0.03-0.39 BASO x10^3 (test code = 704-7) 0.05 10*3/uL 0.01-0.07 Lab Interpretation (test code = 57545-8) [facility] WITH [id number] 17:05:51* Test Item Value Reference Range Interpretation [...] 34.1 g/dL 31.6-35.1 RDW-SD (test code = 88566-3) 41.0 fL 39.0-49.9 RDW-CV (test code = 788-0) 12.1 % 12.0-15.5 PLT (test code = 777-3) 273 166-358 MPV (test code = 98307-8) 10.6 fL 9.5-12.9 NRBC/100 WBC (test code = 8594321361) 0.0 0.0-10.0 NRBC x10^3 (test code = 2763510332) See_Comment [Automated messa ge] The system which generated this result transmitted reference range: 10*3/?L. The reference range was not used to interpret this result as normal/abnormal. GRAN MAT (NEUT) % (test code = 770-8) 75.9 % IMM GRAN % (test code = 3736095340) 0.30 % LYMPH % (test code = 736-9) 10.6 % MONO % (test code = 5905-5) 12.3 % EOS % (test code = 713-8) 0.5 % BASO % (test code = 706-2) 0.4 % GRAN MAT x10^3(ANC) (test code = 5071155652) 9.36 10*3/uL 1.88-7.09 H IMM GRAN x10^3 (test code = 1301294445) 0.04 10*3/uL 0.00-0.06 LYMPH x10^3 (test code = 731-0) 1.30 10*3/uL 1.32-3.29 L MONO x10^3 (test code = 742-7) 1.51 10*3/uL 0.33-0.92 H EOS x10^3 (test code = 711-2) 0.06 10*3/uL 0.03-0.39 BASO x10^3 (test code = 704-7) 0.05 10*3/uL 0.01-0.07 Lab Interpretation (test code = 26297-0) [facility]normal [facility] MET[facility]OLIC PAN[facility] (72942)2023-06-01 16:54:45* Test Item Value Reference Range Interpretation Comme nts NA (test code = 9362137798) 136 mmol/L 135-145 K (test code = 6871772664) 4.3 mmol/L 3.5-5.0 CL (test code = 7767686762) 102 mmol/L 98-108 CO2 TOTAL (test code = 6113579424) 26 mmol/L 23-31 AGAP (test code = 3814581161) 8 2-16 BUN (test code = 8267897004) 23 mg/dL 7-23 GLUCOSE (test code = 7807372240) 154 mg/dL 70-110 H CREATININE (test code = 2160-0) 1.36 mg/dL 0.50-1.04 H TOTAL BILI (test code = 7008964050) 0.9 mg/dL 0.1-1.1 CALCIUM (test code = 2977901379) 9.3 mg/dL 8.6-10.6 T PROTEIN (test code = 3520881020) 6.9 g/dL 6.3-8.2 ALBUMIN (test code = 9327603442) 4.2 g/dL 3.5-5.0 ALK PHOS (test code = 6790590001) 190 U/L 34-122 H ALTv (test code = 1742-6) 62 U/L 5-35 H AST(SGOT) (test code = 8197386456) 54 U/L 13-40 H eGFR (test code = 23901-5) 45.0 mL/min/1.73m2 CKD-EPI eGFR (2020). Assuming creatinine has been stable day-to-day for at least three months, the eGFR indicates Category G3a (45 - 59 mL/min/1.73 m2) Lab Interpretation (test code = 51460-2) [facility]normal [facility]20[facility] 16:54:45* Test Item Value Reference Range Interpretation Comme nts LIPASE (test code = 2268280300) 39 U/L 0-220 Lab Interpretation (test cod e = 54726-1) Normal [facility] MET[facility]OLIC PANEL (87458)2023-06-01 16:54:45* Test Item Value Reference Range Interpretation Comme nts NA (test code = 6917578159) 136 mmol/L 135-145 K (test code = 4851091646) 4.3 mmol/L 3.5-5.0 CL (test code = 1996082398) 102 mmol/L 98-108 CO2 TOTAL (test code = 7780601125) 26 mmol/L 23-31 AGAP (test code = 4053872785) 8 2-16 BUN (test code = 7959345338) 23 mg/dL 7-23 GLUCOSE (test code = 3165007480) 154 mg/dL 70-110 H CREATININE (test code = 2160-0) 1.36 mg/dL 0.50-1.04 H TOTAL BILI (test code = 6954052361) 0.9 mg/dL 0.1-1.1 CALCIUM (test code = 8536832702) 9.3 mg/dL 8.6-10.6 T PROTEIN (test code = 0660680822) 6.9 g/dL 6.3-8.2 ALBUMIN (test code = 9176351917) 4.2 g/dL 3.5-5.0 ALK PHOS (test code = 5028032736) 190 U/L 34-122 H ALTv (test code = 1742-6) 62 U/L 5-35 H AST(SGOT) (test code = 9599047188) 54 U/L 13-40 H eGFR (test code = 97794-4) 45.0 mL/min/1.73m2 CKD-EPI eGFR (2020). Assuming creatinine has been stable day-to-day for at least three months, the eGFR indicates Category G3a (45 - 59 mL/min/1.73 m2) Lab Interpretation (test code = 43459-5) Abnormal [facility]2024-[facility]-17 16:54:45* Test Item Value Reference Range Interpretation Comme nts LIPASE (test code = 2116809712) 39 U/L 0-220 Lab Interpretation (test cod e = 68626-8) Normal [facility]BASIC METABOLIC [id number] 03:30:00* Test Item Value Reference Range Interpretation [...] = POCGLU) 94 MG/DL 70-110 N URINALYSIS [id number] 03:16:00* Test Item Value Reference Range Interpretation [...] (test code = EDLEUK) Large Negative A [facility], [address], [place], [address], Hemoglobin A1c measurement device [id number] 14:58:00* Test Item Value Reference Range Interpretation Comme nts Hemoglobin A1c/Hemoglobin.to ayush in Blood (test code = 4548-4) 6.1 % 4.0-6.4 [facility] A1C with EAG [id number] 00:00:00* Test Item Value Reference Range Interpretation Comme nts Hemoglobin A1c/Hemoglobin.to ayush in Blood (test code = 4548-4) 15.1 % 4.8-5.6 H estim. avg glu (EAG) (test c ode = estim. avg glu (EAG)) 387 mg/dL [facility] CenterMicroalbumin/Creatinine [Mass Ratio] in [id number] 00:00:00* Test Item Value Reference Range Interpretation Comme nts microalbumin random urine (test code = microalbumin random urine) 7 ug/mL creatinine random urine (jocelyne t code = creatinine random urine) 35.7 mg/dL 20.0-320.0 microalbumin/creatinine (random urine) ratio calculated (test code = microalbumin/creatinine (random urine) ratio calculated) 20 mcg/mg creat [facility] CenterComprehensive metabolic 2000 panel - Serum or [...] (test code = anion gap) 13 calc [facility] CenterUrinalysis complete panel - [id number] 00:00:00* Test Item Value Reference Range Interpretation [...] examination (jocelyne t code = microscopic examination) [facility] Centerurinalysis, [id number] 00:00:00* Test Item Value Reference Range Interpretation [...] comment comment (test code = comment) comment [facility] Auto Differential panel - [id number] 00:00:00 * Test Item Value Reference Range [...] (test code = baso#) 0.08 x10*3/?L 0.01-0.08 [facility] CenterThyroxine (T4) free [Mass/volume] in Serum or Plasma 2022-04-05 00:00:00* Test Item Value Reference Range Interpretation Comme nts T4 free (test code = T4 free) 1.10 NG/dL 0.70-1.48 [facility] CenterLipid 1996 panel - Serum or [id number] 00:00:00* Test Item Value Reference Range Interpretation [...] (test code = 2089-1) see comment <130 [facility] CenterFacxubuj93-Fwlquvbwohuxzq D3+25-Hydroxyvitamin D2 [Mass/volume] in Serum or [id number] 00:00:00* Test Item Value Reference Range Interpretation Comme nts vitamin D 25OH (test code = vitamin D 25OH) 19.2 NG/mL 30.0-96.0 L [facility] CenterThyrotropin [Units/volume] in Serum or [id number] 00:00:00* Test Item Value Reference Range Interpretation Comme nts TSH (test code = TSH) 3.371 uIU/mL 0.350-4.940 [facility] CenterTriiodothyronine (T3) Free [Mass/volume] in Serum or [id number] 00:00:00* Test Item Value Reference Range Interpretation Comme nts T3 free (test code = T3 free) 1.95 pg/mL 1.58-3.91 [facility] CenterHemoglobin A1c/Hemoglobin.total in [id number] 00:00:00* Test Item Value Reference Range Interpretation Comme [facility] Hemoglobin A1c/Hemoglobin.to ayush in Blood (test code = 4548-4) 13.8 % 1.0-5.7 H average blood glucose (calcu lation) (test code = average blood glucose (calculation)) 349 mg/dL [facility] CenterBacteria identified in Urine by Rslkyys4496-58-17 00:00:00* Test Item Value Reference Range Interpretation Comme [facility] urine culture, routine (test code = urine culture, routine) final report A result 1 (test code = result 1) escherichia coli A antimicrobial susceptibility (test code = antimicrobial susceptibility) comment [facility] CenterUrinalysis macro (dipstick) panel - [id number] 17:24:00* Test Item Value Reference Range Interpretation Comme [facility] Interpretation UA test performed using: (test code = Interpretation UA test performed using:) Automated device/analyzer (86429,ProQuo) Interpretation Color (test code = Interpretation Color) Yellow Interpretation Clarity (test code = Interpretation Clarity) Clear Interpretation Glucose (mg/dL) (test code = Interpretation Glucose (mg/dL)) 500 Interpretation Bilirubin (test code = Interpretation Bilirubin) Negative Interpretation Ketone (mg/dL) (test code = Interpretation Ketone (mg/dL)) 80 Interpretation Specific [place] (test code = Interpretation Specific [place]) 1.015 Interpretation Occult Blood (test code = Interpretation Occult Blood) Trace-Intact (or Trace Non-Hemolyzed) Interpretation pH (test code = Interpretation pH) 5 Interpretation Protein (test code = Interpretation Protein) Negative Interpretation Urobilinogen (test code = Interpretation Urobilinogen) 0.2 Interpretation Nitrites (test code = Interpretation Nitrites) Negative Interpretation Leukocytes (test code = Interpretation Leukocytes) Negative [facility] CenterUrinalysis macro (dipstick) panel - [id number] 09:20:37* Test Item Value Reference Range Interpretation Comme [facility] Color Color (test code = Col or Color) yellow Color Appearance (test code = Color Appearance) clear Color Glucose (test code = C olor Glucose) negative Color Bilirubin (test code = Color Bilirubin) negative Color Ketones (test code = C olor Ketones) negative Color Specific [place] (test code = Color Specific [place]) 1.010 Color Blood (test code = Col or Blood) negative Color PH (test code = Color PH) 5.5 Color Protein (test code = C olor Protein) negative Color Urobilinogen (test cod e = Color Urobilinogen) 0.2 Color Nitrites (test code = Color Nitrites) negative Color Leukocytes (test code = Color Leukocytes) negative [facility] CenterGlucose [Mass/volume] in Capillary [id number] 08:44:39* Test Item Value Reference Range Interpretation Comme nts Blood Glucose: mg/dl (test c ode = Blood Glucose: mg/dl) 87 [facility] Consult Notes Date/Time Note Provider Source [...] year H/O: hysterectomy 2004 History of colonoscopy 2015 clean; History of small bowel obstruction 2013 medically managed Hx of cholecystectomy 1997 Pap smear abnormality of cervix 20+ years ago Past Surgical History: Procedure Laterality Date CHOLECYSTECTOMY COLON SURGERY 2009 h/o colon cancer COLONOSCOPY Left 06/26/2017 Surgeon: Jarrde Jara MD; Location: [place] [facility] Location COLONOSCOPY Left 12/06/2020 Surgeon: Abdelrahman Madden MD; [facility] COLPOSCOPY benign per pt. normal pap since ESOPHAGOGASTRODUODENOSCOPY N/A 06/27/2016 Surgeon: Jarred Jara MD; Location: [place] [facility] Location ESOPHAGOGASTRODUODENOSCOPY N/A 06/26/2017 Surgeon: Jarred Jara MD; Location: [place] [facility] Location ESOPHAGOGASTRODUODENOSCOPY Left 12/06/2020 Surgeon: Abdelrahman Madden MD; Location: [place] [facility] [place] HYSTERECTOMY kept ovaries; dysmenorrhea TRIGGER FINGER RELEASE Left 05/27/2017 Surgeon: Prashant El MD; Location: [place] [facility] TUBAL LIGATION Family History Problem Relation Age of Onset Stroke Father Hypertension Father Breast Cancer Mother late 50s Hypertension Mother Lung Cancer Mother Uterine Cancer Sister Cancer Maternal Grandfather throat Social History Socioeconomic History Marital status: Occupational History Occupation: [employer] Employer: [employer] Tobacco Use Smoking status: Every Day Packs/day: 0.50 Years: 30.00 Additional pack years: 0.00 Total pack years: 15.00 Types: Cigarettes Smokeless tobacco: Never Substance and Sexual Activity Alcohol use: No Drug use: No Sexual activity: Yes Partners: Male control/protection: Surgical Comment: Social History Narrative Works in [employer]. Currently going to school for criminal [...] of the lung bases. 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 Tena 's note. I agree with the documentation and plan Antwan Warner MD 06/02/2023 9:29 AM [facility] - Health History and Physical Notes Date/Time [...] above All questions answered Carlos Gomes MD [facility] 2023-06-12 13:59:14 Patient seen and examined, agree with H&P, no interval changes. Surgeon: Rosey MAZA Date: 06/12/2023 Plan for R sided [facility] today with Dr. Gomes. Guera Hidalgo PGY2 Urology [facility] Associated attestation - Carlos Gomes MD [...] of the lung bases. 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 Mckenzie s/p colon resection 2009. [...] Left 06/26/2017 Surgeon: Jarred Jara MD; Location: [place] [facility] Location COLONOSCOPY Left 12/06/2020 Surgeon: Abdelrahman Madden MD; Location[facility] COLPOSCOPY benign per pt. 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 Currently going to school for criminal justice [...] BACTERIA Few (A) Negative COMP. METABOLIC PANEL (99280) Collection Time: 06/01/23 11:31 AM Result Value [...] of the lung bases. RL: 2601 AFC: 34044 ABDOMEN PELVIS WO CONTRAST Result Date: 06/01/2023 [...] medications. Discussed the case with: [ ] claims consultant [x ] nursing staff [x ] patient/family [x] ED provider Calvin Nova MD XpertMD This note was created using a voice-recognition sole stainer system. Incorrect words, phrases, or punctuation may have been missed during proofreading and need to be interpreted in the context. If an error is discovered when reviewing the document, please contact Dr. Nova directly for clarification. 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 Procedures: Ureteroscopy (CPT 88834) Retrograde pyelogram (CPT 24760 + modifier 26 to include professional component for interpretation) Cystoscopy with right ureteral stent placement (63746) Indications: 3mm right proximal ureteral stone, right [...] for a cystoscope and a 22cm 6fr [place] double-J ureteral catheter without the string was [...] in good condition. Guera Hidalgo PGY2 Urology [facility] Associated attestation - Carlos Gomes MD - 06/12/2023 7:26 PM CDT I saw and examined the patient on 06/12/2023 and agree with the resident's note as written by Dr Hidalgo. I actively participated in the decision-making process. Please see the resident's note for additional details. I was present for the entire procedure. Carlos Gomes MD [facility] 2023-06-02 13:13:11 FULL OPERATIVE NOTE Date [...] Procedures: Cystoscopy with right ureteral stent placement (33180) Retrograde pyelogram (CPT 04125 + modifier 26 to include professional component [...] resistance under fluoroscopic guidance. A 22cm 6.0 -[place] double-J ureteral stent was placed into the [...] spasms Provisional plan for Right [facility] 06/13/2023 [facility] Carlos Gomes MD [facility]
[2024-03-22] MEDS ORDERED: CYCLOBENZAPRINE 10 MG TAB ONE (21:46)
[2024-03-22] MEDS ORDERED: HYDROCODONE/APAP 5/325 MG TAB ONE (21:46)
[2024-03-22] MEDS ORDERED: KETOROLAC 30 MG/ML INJ ONE (21:46)
[2024-03-22 22:12] LABS: Specific Gravity 1.011 (1.005-1.030); Sqamous Epithelial <5 /HPF (None Seen); Urine Bacteria <20 /HPF (<20); Urine Bilirubin NEGATIVE (Negative); Urine Blood Negative (Negative); Urine Clarity Turbid (Clear); Urine Color Light-Yellow (Yellow); Urine Crystals Unidentified Few /HPF (None Seen); Urine Culture Reflex Order REFLEXED; Urine Glucose NEGATIVE (Negative); Urine Ketones NEGATIVE (Negative); Urine Micro Reflex YN NO BILL MICROSCOPIC; Urine Mucus Slight /HPF (None Seen); Urine Nitrite NEGATIVE (Negative); Urine Protein NEGATIVE (Negative); Urine RBC <5 /HPF (None Seen); Urine Urobilinogen Normal (Normal); Urine WBC 20-50 /HPF (<5); Urine Yeast (Budding) Occasional /HPF (None Seen)
--- NOTE | 2024-03-22 23:05 | ER ---
Nurse's Notes [facility] Name: Maritza Washington Age: 59 yrs Sex: Female : 1965 Arrival Date: 03/22/2024 Time: 21:15 Bed 5 Private MD: Diagnosis: Low back pain Presentation: 03/22 21:15 Chief complaint: Patient states: Pain in lower back that started last night. bm8 21:15 Coronavirus screen: At this time, the client does not indicate any symptoms associated bm8 with coronavirus-19. Ebola Screen: Patient negative for fever greater than or equal to 101.5 degrees Fahrenheit, and additional compatible Ebola Virus Disease symptoms Patient denies exposure to infectious person. Patient denies travel to an Ebola-affected area in the 21 days before illness onset. No symptoms or risks identified at this time. Initial Sepsis Screen: Does the patient meet any 2 criteria? No. Patient's initial sepsis screen is negative. Does the patient have a suspected source of infection? No. Patient's initial sepsis screen is negative. Risk Assessment: Do you want to hurt yourself or someone else? Patient reports no desire to harm self or others. Onset of symptoms was March 21, 2024 at 20:00. 21:15 Method Of Arrival: Ambulatory bm8 21:15 Acuity: PAYAM 3 bm8 Triage Assessment: 21:15 General: Appears in no apparent distress. uncomfortable, Behavior is calm, cooperative, bm8 appropriate for age. 21:15 Pain: Complains of pain in back Pain currently is 10 out of 10 on a pain scale. bm8 21:47 EENT: No deficits noted. No signs and/or symptoms were reported regarding the EENT bm8 system. Neuro: No deficits noted. 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 Full function Gait is steady, Speech is normal, Facial symmetry appears normal, Pupils are PERRLA. Cardiovascular: Heart tones S1 S2 present Capillary refill < 3 seconds in bilateral fingers Patient's skin is warm and dry. Respiratory: Airway is patent Trachea midline Respiratory effort is even, unlabored, Respiratory pattern is regular, symmetrical, Breath sounds are clear bilaterally. GI: No signs and/or symptoms were reported involving the gastrointestinal system. : No signs and/or symptoms were reported regarding the genitourinary system. Derm: No signs and/or symptoms reported regarding the dermatologic system. Musculoskeletal: Circulation, motion, and sensation intact. Capillary refill < 3 seconds, in bilateral fingers. Range of motion: intact in all extremities, Reports pain in back since last night. Historical: - Allergies: 21:40 Sulfa (Sulfonamide Antibiotics); bm8 21:40 Vicodin; bm8 - Home Meds: 21:40 metformin 500 mg oral tablet 1 tab daily [Active]; glipizide 5 mg Oral tablet 1 tab bm8 daily [Active]; lisinopril 20 mg Oral tablet 1 tab daily [Active]; levothyroxine oral [Active]; omeprazole 40 mg oral capsule,delayed release (e.c.) 1 cap daily [Active]; - PMHx: 21:40 Colorectal CA (remission); Hypertensive disorder; Diabetes mellitus; Hypothyroidism; bm8 "slipped discs"; - PSHx: 21:40 Cholecystectomy; colon resection; bm8 - Immunization history:: Adult Immunizations up to date. - Infectious Disease History:: Denies. - Social history:: Smoking status: Patient reports the use of cigarette tobacco products. - Family history:: not pertinent. Screenin:47 [facility] ED Fall Risk Assessment (Adult) History of falling in the last 3 months, cm10 including since admission No falls in past 3 months (0 pts) Confusion or Disorientation No (0 pts) Intoxicated or Sedated No (0 pts) Impaired Gait No (0 pts) Mobility Assist Device Used No (0 pt) Altered Elimination No (0 pt) Score/Fall Risk Level 0 - 2 = Low Risk Oriented to surroundings, Maintained a safe environment, Hourly rounding (assess needs \\T\\ fall precautionary measures) done. Abuse screen: Denies threats or abuse. Denies injuries from another. Nutritional screening: No deficits noted. Tuberculosis screening: No symptoms or risk factors identified. Assessment: 21:46 General: Appears in no apparent distress. comfortable, Behavior is calm, cooperative, cm10 appropriate for age. Pain: Complains of pain in back Pain does not radiate. Pain currently is 10 out of 10 on a pain scale. Quality of pain is described as aching, crampy, sharp. Neuro: Level of Consciousness is awake, alert, obeys commands, Oriented to person, place, time, situation, Appropriate for age Gait is steady. Respiratory: No deficits noted. Airway is patent Respiratory effort is even, unlabored, Respiratory pattern is regular, symmetrical. Derm: No deficits noted. Skin is healthy with good turgor, Skin is pink, warm \\T\\ dry. Musculoskeletal: Range of motion: intact in all extremities, Reports pain in back. Vital Signs: 21:15 BP 146 / 95; Pulse 85; Resp 17; Temp 98.7; Pulse Ox 98% ; Weight 56.7 kg; Height 4 ft. bm8 11 in. ; Pain 10/10; 22:26 BP 138 / 76; Pulse 80; Resp 17; Pulse Ox 97% ; jj7 23:27 BP 117 / 79; Pulse 85; Resp 16; Temp 98.9; Pulse Ox 97% ; jj7 21:15 Body Mass Index 25.25 (56.70 kg, 149.86 cm) bm8 21:15 Pain Scale: Adult bm8 ED Course: 21:17 Patient arrived in ED. mr 21:24 Shane Ortiz MD is Attending Physician. rt 21:40 Triage completed. bm8 21:44 Jazmyn Loo RN is Primary Nurse. jj7 21:46 Arm band placed on right wrist. Patient placed in an exam room, on a stretcher. cm10 21:47 Patient has correct armband on for positive identification. Bed in low position. Call cm10 light in reach. Provided Education on: ER process and procedures.. Cardiac monitoring not applicable on this patient. 22:03 UAM Sent. jj7 23:27 No provider procedures requiring assistance completed. Patient did not have IV access jj7 during this emergency room visit. Administered Medications: 21:48 CANCELLED (Patient Refused): hydrocodone-acetaminophen5 mg-325 mg 1 tabs PO once rt 22:00 Drug: HYDROcodone-acetaminophen PO 5 mg-325 mg 1 tabs PO once Route: PO; jj7 22:54 Follow up: Response: Pain is unchanged, physician notified jj7 22:02 Drug: Ketorolac IM 30 mg IM once Route: IM; Site: right gluteus; jj7 22:54 Follow up: Response: Pain is unchanged, physician notified jj7 22:02 Drug: Cyclobenzaprine PO 10 mg PO once Route: PO; jj7 22:54 Follow up: Response: Pain is unchanged, physician notified jj7 23:10 Drug: morphine IM 4 mg IM once Route: IM; Site: left gluteus; jj7 23:24 Follow up: Response: Marked relief of symptoms; Pain is decreased jj7 Medication: 21:47 VIS not applicable for this client. cm10 Outcome: 23:04 Discharge ordered by . rt 23:27 Discharged to home ambulatory, with friend, lynne 23:27 Condition: improved 23:27 Discharge instructions given to patient, Instructed on discharge instructions, medication usage, Demonstrated understanding of instructions, medications, Prescriptions given X 3, 23:28 Patient left the ED. jj7 Signatures: Nicolle Jalloh, Randy Padilla Jazmyn Loo, RN RN jj7 Shane Ortiz MD MD rt Talya Duenas, BETH RN cm10 Jordan Shields RN RN bm8
--- NOTE | 2024-03-22 23:05 | EDPHYS ---
Physician Documentation [facility] Name: Maritza Washington Age: 59 yrs Sex: Female : 1965 Arrival Date: 03/22/2024 Time: 21:15 Bed 5 Private MD: ED Physician Shane Ortiz HPI: 03/23 01:30 This 59 yrs old Female presents to ER via Ambulatory with complaints of Back Pain. rt 01:30 Patient with history of chronic back pain presents to the ED with worsening of chronic rt pain to the right lower back since yesterday. Patient has had a history of kidney stones, reported hydronephrosis but she states that the symptoms are different from that. Denies injury. Denies numbness, tingling, acute complaint, symptoms are moderate in severity, aching nature, nonradiating, no other aggravating or elevating factors.. Historical: - Allergies: 03/22 21:40 Sulfa (Sulfonamide Antibiotics); bm8 21:40 Vicodin; bm8 - Home Meds: 21:40 metformin 500 mg oral tablet 1 tab daily [Active]; glipizide 5 mg Oral tablet 1 tab bm8 daily [Active]; lisinopril 20 mg Oral tablet 1 tab daily [Active]; levothyroxine oral [Active]; omeprazole 40 mg oral capsule,delayed release (e.c.) 1 cap daily [Active]; - PMHx: 21:40 Colorectal CA (remission); Hypertensive disorder; Diabetes mellitus; Hypothyroidism; bm8 "slipped discs"; - PSHx: 21:40 Cholecystectomy; colon resection; bm8 - Immunization history:: Adult Immunizations up to date. - Infectious Disease History:: Denies. - Social history:: Smoking status: Patient reports the use of cigarette tobacco products. - Family history:: not pertinent. ROS: 03/23 01:30 Constitutional: Negative for fever, chills, and weight loss, Cardiovascular: Negative rt for chest pain, palpitations, and edema, Respiratory: Negative for shortness of breath, cough, wheezing, and pleuritic chest pain, Abdomen/GI: Negative for abdominal pain, nausea, vomiting, diarrhea, and constipation, : Negative for injury, bleeding, discharge, and swelling, MS/Extremity: Negative for injury and deformity, Back: Positive for pain at rest, pain with movement, Exam: 01:30 Constitutional: This is a well developed, well nourished patient who is awake, alert, rt and in no acute distress. Head/Face: Normocephalic, atraumatic. Chest/axilla: Normal chest wall appearance and motion. Nontender with no deformity. No lesions are appreciated. Cardiovascular: Regular rate and rhythm with a normal S1 and S2. No gallops, murmurs, or rubs. Normal PMI, no JVD. No pulse deficits. Respiratory: Lungs have equal breath sounds bilaterally, clear to auscultation and percussion. No rales, rhonchi or wheezes noted. No increased work of breathing, no retractions or nasal flaring. Abdomen/GI: Soft, non-tender, with normal bowel sounds. No distension or tympany. No guarding or rebound. No evidence of tenderness throughout. 01:30 Back: Tenderness to the lower lumbar region, no costovertebral angle tenderness., Vital Signs: 03/22 21:15 BP 146 / 95; Pulse 85; Resp 17; Temp 98.7; Pulse Ox 98% ; Weight 56.7 kg; Height 4 ft. bm8 11 in. ; Pain 10/10; 22:26 BP 138 / 76; Pulse 80; Resp 17; Pulse Ox 97% ; jj7 23:27 BP 117 / 79; Pulse 85; Resp 16; Temp 98.9; Pulse Ox 97% ; jj7 21:15 Body Mass Index 25.25 (56.70 kg, 149.86 cm) bm8 21:15 Pain Scale: Adult bm8 MDM: 21:35 Medical Screening Exam initiated rt 03/23 01:30 Differential diagnosis: Chronic back pain, musculoskeletal back pain, kidney stone, rt pyonephritis. Data reviewed: vital signs, nurses notes, lab test result(s). Counseling: I had a detailed discussion with the patient and/or guardian regarding the historical points, exam findings, and any diagnostic results supporting the discharge/admit diagnosis, lab results, the need for outpatient follow up. ED course: Patient symptoms not consistent for GI prior process, urinalysis shows white blood cells in urine but no bacteria, clinically the patient has a UTI at this time, however, will send for culture. Will treat patient's back pain, she does have follow-up with a spine surgeon this month. She was encouraged to keep this appointment.. 03/22 21:44 Order name: UAM; Complete Time: 22:13 rt 03/22 22:15 Order name: Urine Culture EDMS Administered Medications: 03/22 21:48 CANCELLED (Patient Refused): hydrocodone-acetaminophen5 mg-325 mg 1 tabs PO once rt 22:00 Drug: HYDROcodone-acetaminophen PO 5 mg-325 mg 1 tabs PO once Route: PO; jj7 22:54 Follow up: Response: Pain is unchanged, physician notified jj7 22:02 Drug: Ketorolac IM 30 mg IM once Route: IM; Site: right gluteus; jj7 22:54 Follow up: Response: Pain is unchanged, physician notified jj7 22:02 Drug: Cyclobenzaprine PO 10 mg PO once Route: PO; jj7 22:54 Follow up: Response: Pain is unchanged, physician notified jj7 23:10 Drug: morphine IM 4 mg IM once Route: IM; Site: left gluteus; jj7 23:24 Follow up: Response: Marked relief of symptoms; Pain is decreased jj7 Disposition Summary: 03/22/24 23:04 Discharge Ordered Notes: Location: Home rt Problem: new rt Symptoms: are unchanged rt Condition: Stable rt Diagnosis - Low back pain rt Followup: rt - With: Private Physician - When: 2 - 3 days - Reason: Discharge Instructions: - Discharge Summary Sheet rt - Acute Back Pain, Adult rt Forms: - Medication Reconciliation Form rt - Antibiotic Education rt - Prescription Opioid Use rt - Patient Portal Instructions rt - Leadership Thank You Letter rt Prescriptions: - gabapentin 100 mg Oral capsule - take 1 capsule ORAL route every 8 hours; 21 capsule; Refills: 0, Product rt Selection Permitted - Cyclobenzaprine 10 mg Oral tablet - take 1 tablet ORAL route every 8 hours As needed; 15 tablet; Refills: 0, rt Product Selection Permitted - Tramadol 50 mg Oral Tablet - take 1 tablet ORAL route every 8 hours as needed; 12 tablet; Refills: 0, rt Product Selection Permitted Signatures: Dispatcher [employer] EDJazmyn Collins RN RN jj7 Shane Ortiz MD MD rt Jordan Shields RN RN bm8 Corrections: (The following items were deleted from the chart) 21:48 21:44 HYDROcodone-acetaminophen PO 5 mg-325 mg 1 tabs PO once ordered. rt rt
[2024-03-22] MEDS ORDERED: MORPHINE 4 MG/ML SYR ONE (23:06)
[2024-03-22 23:35] VITALS: O2SAT 97
[2024-03-22 23:36] VITALS: BP 117/79; TEMP 98.9
== END 2024-03-22 23:28 | disposition home or self-care (01) ==
LOC: ER 21:15
DX: M54.50 Low back pain, unspecified (principal); I10 Essential (primary) hypertension; E11.9 Type 2 diabetes mellitus without complications; F17.210 Nicotine dependence, cigarettes, uncomplicated; E03.9 Hypothyroidism, unspecified; Z85.038 Personal history of other malignant neoplasm of large intestine; Z88.2 Allergy status to sulfonamides; Z88.5 Allergy status to narcotic agent
CPT/HCPCS: 81001; 87086; 87088; 96372; 99284

== ENCOUNTER 2024-06-09 16:20 | Emergency (ER) | payer OTHER ==
--- OUTSIDE RECORDS SUMMARY | 2024-06-09 16:30 | XMS REPORT | Continuity of Care Document ---
Author Name Unknown Address [address] [facility] [place] [address] [facility] [place] Address [address] [facility] [place] [address] Care Team Providers Care Feed Research Technician Name Role Phone Anthony SUE, Mary Primary Care Physician MIKAYLA FLOREZ Attending Clinician Unavailable Cristian Laguna Attending Clinician Unavailable Nicolette Chakraborty Attending Clinician [phone] Doctor Unassigned, [place] Attending Clinician U sarabjitailCARLOS Ahuja Attending Clinician Unavailable SOLO DIANE Attending Clinician Unavailable NICOLETTE BLAS Attending Clinician Unavailable Martha Connors Attending Clinician [phone] Lab, Ang - Db Attending Clinician Unavailable Magdalena Wise PA-C Attending Clinician [phone] MAGDALENA WISE Attending Clinician Unavailable DARBY BROTHERS Attending Clinician UnavailDARBY Buckley Attending Clinician UnavailMARTHA Pascal Attending Clinician Unavailable CHITRA SUÁREZ Attending Clinician Unavailable Keisha Beckman RN Attending Clinician Unavaila ble UNKNOWN, ATTENDING Attending Clinician Unavailab CLARIBEL nAdrews Attending Clinician Unavailable CLARIBEL BLACK Attending Clinician Unavailable Doctor Unassigned, [place] Attending Clinician U SAMUEL Childress Attending Clinician Unavailable Ronak MAZA, Madeline Attending Clinician [phone] MADELINE SIMONS Attending Clinician Unavailable Nurse, [facility] Attending Clinician Un available Unknown, Attending Attending Clinician Unavailab Yuniel Forman OD Attending Clinician [phone] Antolin FORCE ADJUSTMENT SUPERVISORMartha Doll Attending Clinician [phone] Darby Brothers MD Attending Clinician [phone] Abel Mcguire Attending Clinician Unavailable LUDMILA BEVERLY Attending Clinician Unavailab rosa Beverly FORCE ADJUSTMENT SUPERVISOR, Ludmila Sow Attending Clinician [phone] EbraTae Orellana Attending Clinician [phone] JOSE GLEASON Attending Clinician Unavailable Jose Gleason MD Attending Clinician [phone] See Burch Attending Clinician [phone] SEE MIN Attending Clinician Unavailable YUNIEL CALDERON Attending Clinician Unavailabl Parker Nelsno Attending Clinician Unavailable EDDOC, GENERIC FOR ED Attending Clinician Unava ilashok Gomes MD, Carlos Attending Clinician [phone] BOB MIN Attending Clinician Unavailable Mikayla Florez MD Attending Clinician [phone] BACILIO BENTLEY Attending Clinician Unavail able Caitlin Cuevas RN Attending Clinician Unavail able YUNIEL THURMAN Attending Clinician Unavail able Armando Attending Clinician Unavaila NEO Bosch Attending Clinician UnavailPia Bess RN Attending Clinician Unavailable Jenaro Padilla MD Attending Clinician [phone] Breana Calhoun RN Attending Clinician Unava ilable LUIS COLON Attending Clinician Unavailable Jase Wayne Attending Clinician [phone] Bud CAMPOS, Neo Hwang Attending Clinician Unavail able JOSE SANCHEZ Attending Clinician Unavailable JOSE SANCHEZ Attending Clinician Unavailable Rc Peng DO Attending Clinician [phone] Calvin Nova MD Attending Clinician [phone] Edwin Mathews Attending Clinician Unavailable Porfirio Attending Clinician Unavailable Jovana Weber Attending Clinician Unavailable AISHA CHÁVEZ Attending Clinician Unavailable Jayden Knight MD Attending Clinician [phone] Aisha Chávez MD Attending Clinician [phone] FRANCISCO GAMING Attending Clinician Unavailable JOSE BACK Attending Clinician Unavailable Francisco Gaming PA-C Attending Clinician [phone] [facility]ending Clinician [phone] Vtc-Lab Attending Clinician Unavailable Abdelrahman Madden MD Attending Clinician Unavail able Marianne MAZA, Samuel King Attending Clinician [phone] SAMUEL GUZMÁN Attending Clinician Unavaila ble Only, Lcc Test Attending Clinician Unavailable Jose Back MD Attending Clinician [phone] Ambika Masters MD Attending Clinician [phone] Giovanni Levine MD Attending Clinician [phone] Ivy CAMPOS, Yareli Attending Clinician Unavailable GINI WILLARD Attending Clinician Unavailable GLENNY ARREOLA Attending Clinician Unavail able MIKAYLA FLOREZ Admitting Clinician Unavailable Jovana Weber Admitting Clinician Unavailable Armando Admitting Clinician Unavaila CARLOS Moura Admitting Clinician Unavailable Rosey MAZA, Carlos Admitting Clinician [phone] CALVIN NOVA Admitting Clinician Unavailable Porfirio Admitting Clinician Unavailable JAYDEN KNIGHT Admitting Clinician Unavailable Payers Payer Name Policy Type Policy Number Effective Date Expirati on Date Source HIM BC BLUE ADVANTAGE [facility] [id number] 2023 00:00:00 [place] [id number] 2023 00:00:[place] [id number] 2022 00:00:00 2024 00:00:00 CIGNA - [place] (EPO) [id number] 2022 00:00:00 2023 00:00:00 [place] [id number] AETNA [id number] 2021 00:00:00 AETNA - CHOICE (POS II) [id number] 2021 00:00:00 Problems Condition Name Condition Details Condition Category Status Onset Date Resolution Date Last Treatment Date Treating Clinician Comments Source Cervicalgi a Cervicalgi a Disease Active 2023-03 0-25 00:00: 00 [facility] Right upper quadrant pain Right upper quadrant pain Disease Active 2023-03 0-25 00:00: 00 [facility] Epigastric pain Epigastric pain Disease Active 2023-03 0-25 00:00: 00 [facility] Nausea Nausea Disease Active 2023-03 0-25 00:00: 00 [facility] Hx of urinary stone Hx of urinary stone Disease Active 2023-03 0-25 00:00: 00 [facility] Costochond ritis, acute Costochond ritis, acute Disease Active 6-26 00:00: 00 [facility] Chronic right shoulder pain Chronic right shoulder pain Disease Active 6-26 00:00: 00 [facility] Raccoon bite, subsequent encounter Raccoon bite, subsequent encounter Disease Active 6- 00:00: 00 [facility] Encounter for repeat administra tion of rabies vaccinatio n Encounter for repeat administra tion of rabies vaccinatio n Disease Active 6-25 00:00: 00 [facility] Flank pain Flank pain Disease Active 4-03 00:00: 00 [facility] Acute abdominal pain Acute abdominal pain Disease Active 3-17 00:00: 00 [facility] HLD (hyperlipi demia) HLD (hyperlipi demia) Disease Active 317 00:00: 00 [facility] Anxiety Anxiety Disease Active 17 00:00: 00 [facility] Pyelonephr itis Pyelonephr itis Disease Active 17 00:00: 00 [facility] GERD (gastroeso phageal reflux disease) GERD (gastroeso phageal reflux disease) Disease Active 05-31 00:00: 00 [facility] KRISTOPHER (acute kidney injury) KRISTOPHER (acute kidney injury) Disease Active 05-31 00:00: 00 [facility] Nephrolith iasis Nephrolith iasis Disease Active 05-31 00:00: 00 [facility] Type 2 diabetes mellitus Type 2 diabetes mellitus Disease Active 05-31 00:00: 00 [facility] HTN (hypertens ion) HTN (hypertens ion) Disease Active 05-31 00:00: 00 [facility] Leukocytos is Leukocytos is Disease Active 05-31 00:00: 00 [facility] Right ureteral stone Right ureteral stone Disease Active 05-31 00:00: 00 [facility] KRISTOPHER (acute kidney injury) KRISTOPHER (acute kidney injury) Disease Active 05-31 00:00: 00 [facility] History of alcoholism History of Alcoholism Problem Active 05-03 00:00: 00 [facility] Mehta's esophagus Mehta's Esophagus Problem Active 2022-03 00:00: 00 [facility] History of malignant neoplasm of colon History of Malignant Neoplasm of Colon Problem Active 2022-03 00:00: 00 [facility] Tobacco user Tobacco User Problem Active 2022-03 00:00: 00 [facility] Multiple joint pain Multiple Joint Pain Problem Active 04-25 00:00: 00 [facility] Diabetes mellitus Diabetes Mellitus Problem Active 03-22 00:00: 00 [facility] Hyperlipid emia Hyperlipid emia Problem Active 03-22 00:00: 00 [facility] Anxiety Anxiety Problem Active 03-22 00:00: 00 [facility] Essential hypertensi on Essential Hypertensi on Problem Active 03-22 00:00: 00 [facility] Dysphagia, pharyngoes ophageal phase Dysphagia, pharyngoes ophageal phase Disease Active 12-04 00:00: 00 Overview: Formattin g of this note might be different from the original. Added automatic ally from request for surgery [id number] [facility] Globus sensation Globus sensation Disease Active 12-04 00:00: 00 Overview: Formattin g of this note might be different from the original. Added automatic ally from request for surgery [id number] [facility] Thrush Thrush Disease Active 12-04 00:00: 00 Overview: Formattin g of this note might be different from the original. Added automatic ally from request for surgery [id number] [facility] Rectal cancer Rectal cancer Disease Active 06-13 00:00: 00 Overview: Formattin g of this note might be different from the original. Added automatic ally from request for surgery [id number] [facility] History of colon cancer History of colon cancer Disease Active 06-13 00:00: 00 Overview: Formattin g of this note might be different from the original. Added automatic ally from request for surgery [id number] [facility] Trigger middle finger of left hand Trigger middle finger of left hand Disease Active 05 00:00: 00 [facility] GERD with esophagiti s GERD with esophagiti s Disease Recurre nce 1- 00:00: 00 [facility] Tobacco dependence Tobacco dependence Disease Recurre nce 4 00:00: 00 [facility] Vomiting Vomiting Disease Active 13 00:00: 00 [facility] Elevated LFTs Elevated LFTs Disease Active 09-12 00:00: 00 [facility] Fatigue Fatigue Disease Active 09-12 00:00: 00 [facility] SBO (small bowel obstructio n) SBO (small bowel obstructio n) Disease Active 09-12 00:00: 00 [facility] Anemia Anemia Disease Active 09-12 00:00: 00 [facility] Nasal congestion Nasal congestion Disease Active 09-12 00:00: 00 [facility] Colon cancer Colon cancer Disease Recurre nce 09-12 00:00: 00 [facility] Preseptal cellulitis of right lower eyelid Preseptal cellulitis of right lower eyelid Disease Resolve d 2017-0317 00:00: 00 2023-06-19 00:00:00 2023-06-19 14:56:12 [facility] COPD (chronic obstructiv e pulmonary disease) COPD (chronic obstructiv e pulmonary disease) Disease Resolve d 04-18 00:00: 00 2018-01-06 00:00:00 2018-01-06 14:34:23 [facility] Allergies, Adverse Reactions, Alerts Allergy Name Allergy Type Status Severity Reaction(s) Onset Date Inactive Date Treating Clinician Comments Source hydrocod one bit DA Active [place] ITCH[place] RASH 08-04 00:00: 00 [facility] Sulfa (Sulfona mide Antibiot ics) DA Active [place] CHILDHOOD REACTION 08-04 00:00: 00 [facility] SULFA (SULFONA MIDE ANTIBIOT ICS) Drug Class Active N/V 05-13 00:00: 00 [facility] HYDROCOD ONE-ACET AMINOPHE N DRUG Active Med ITCHING 05-13 00:00: 00 [facility] Sulfa (Sulfona mide Antibiot ics) Propensi ty to adverse reaction s Active Nausea and/or Vomiting 05-13 00:00: 00 [facility] Sulfa (Sulfona mide Antibiot ics) Propensi ty to adverse reaction s Active Nausea and/or Vomiting 05-13 00:00: 00 [facility] Hydrocod one-Acet aminophe n Propensi ty to adverse reaction s Active Itching 05-13 00:00: 00 [facility] Hydrocod one-Acet aminophe n Drug Allergy Active Rash 05-13 00:00: 00 [facility] hydrocod one bit DA Active [place] IT[place] RASH 11-07 00:00: 00 [facility] Sulfa (Sulfona mide Antibiot ics) DA Active [place] CHILDHOOD REACTION 11-07 00:00: 00 [facility] VICODIN Allergy to substanc e Active Mild to moderate Rash [facility] SULFA (SULFONA MIDE ANTIBIOT ICS) Allergy to substanc e Active [facility] Family History Family Member Diagnosis Comments Start Date Stop Date Sourc e [facility] St[facility] Maternal grandfather Cancer [facility] Natural [facility] Natural [facility] Hy[facility] Natural mother [facility] Natural sister Uterine Cancer [facility] Social History Social Habit Start Date Stop Date Quantity Comments Source Sexual orientation [facility] History of tobacco use Cigarette Smoker [facility] Alcoholic beverage intake 2024-03-16 00:00:00 2024-03-16 00:00:00 Current non-drinker of alcohol (finding) [facility] Cigarettes smoked current (pack per day) - Reported 2023-09-05 00:00:00 2023-09-05 00:00:00 [facility] Cigarette pack-years 2023-09-05 00:00:00 2023-09-05 00:00:00 [facility] Tobacco use and exposure 2023-09-05 00:00:00 2023-09-05 00:00:00 Smokeless tobacco non-user [facility] History of Social function 2023-06-12 00:00:00 2023-06-12 00:00:00 [facility] Alcohol intake 2023-06-03 00:00:00 2023-06-03 00:00:00 Current non-drinker of alcohol (finding) [facility] Exposure to SARS-CoV-2 (event) 2021-09-16 00:00:00 2021-09-26 22:48:00 Not sure [facility] Sex assigned at 1965 00:00:00 1965 00:00:00 [facility] Smoking Status Start Date Stop Date Source Heavy Tobacco Smoker [facility] Smokes tobacco daily 2023-09-05 00:00:00 [facility] Medications Ordered Medication Name Filled Medication Name Start Date Stop Date Current Medication? Ordering Clinician Indication Dosage Frequency Signature (SIG) Comments Components Source allopurinol 300 mg tablet 05-19 00:00: 00 Yes 1mg Jones Brower rosuvastati n 5 mg tablet 05-19 00:00: 00 Yes 1mg [facility]er GABAPENTIN 300 mg capsule 05-13 00:00: 00 Yes [id number] TAKE 1 CAPSULE BY MOUTH 3 TIMES A DAY ( EVERY MORNING AT NOON AND EVERY EVENING ) [facility] cetirizine 10 mg tablet 05-10 00:00: 00 Yes 1mg [facility] Brower lisinopril 5 mg tablet 05-10 00:00: 00 Yes 1mg [facility] Brower metformin 500 mg tablet 05-10 00:00: 00 Yes 1mg Jones Brower omeprazole 20 mg tablet,billy yed release 05-10 00:00: 00 Yes 1mg [facility]er levothyroxi ne 75 mcg tablet 05-10 00:00: 00 Yes 1mcg [facility] amoxicillin 500 mg capsule 05-10 00:00: 00 Yes 1mg [facility]er metFORMIN 1,000 mg tablet 2023-03 00:00: 00 Yes [id number] 1000mg Take 1 tablet by mouth in the morning and 1 tablet in the evening. Take with meals. [facility] lisinopriL 5 mg tablet 2023-03 00:00: 00 Yes [id number] 5mg Take 1 tablet by mouth in the morning. [facility] gabapentin 300 mg capsule 2023-03 00:00: 00 05-13 00:00 :00 No [id number] 300mg Take 1 capsule by mouth in the morning and 1 capsule at noon and 1 capsule in the evening. [facility] traMADoL 50 mg tablet 2023-03 00:00: 00 03-24 05:59 :00 Yes [id number] 50mg Take 1 tablet by mouth every 6 (six) hours as needed for Pain (scale 7-10) for up to 7 days. Indication s: acute pain [facility] naproxen 500 mg tablet 2023-03 00:00: 00 Yes [id number] 500mg Take 1 tablet by mouth in the morning and 1 tablet in the evening. Take with meals. [facility] levothyroxi ne 75 mcg tablet 2023-03 00:00: 00 Yes [id number] 75ug Take 1 tablet by mouth every morning. [facility] methocarbam oL 500 mg tablet 2023-03 00:00: 00 Yes [id number] 500mg Take 1 tablet by mouth 4 (four) times daily. [facility] meloxicam 15 mg tablet 12-08 00:00: 00 01-08 00:00 :00 No [id number] 15mg Take 1 tablet by mouth in the morning. [facility] triamcinolo ne acetonide (KENALOG) injection 16 mg 09-10 14:45: 00 09-10 13:52 :00 No [id number] 9105 16mg 16 mg, Intramuscu lar, ONCE, 1 dose, On Nalini 09/11/23 at 0945, Routine [facility] Blood-Gluco se Meter (GLUCOCARD SHINE METER) [place] 09-09 00:00: 00 Yes [id number] 00 Use as directed [facility] lancets (TECHLITE LANCETS) 28 gauge [place] 09-09 00:00: 00 Yes [id number] 00 Check FASTING BLOOD SUGAR DAILY [facility] blood sugar diagnostic (GLUCOCARD SHINE TEST STRIPS) strip 09-09 00:00: 00 Yes [id number] 00 Check fasting BLOOD SUGAR DAILY [facility] levothyroxi ne 75 mcg tablet 09-09 00:00: 00 01-14 00:00 :00 No [id number] 75ug Take 1 tablet by mouth every morning. [facility] ity [facility] meloxicam 15 mg tablet 09-09 00:00: 00 12-08 00:00 :00 No [id number] 15mg Take 1 tablet by mouth in the morning. [facility] mupirocin 2 % ointment 09-04 00:00: 00 Yes [id number] Apply to area(s) 3 (three) times daily. [facility] rabies immune globulin (PF) (HYPERRAB (PF)) injection 1,044 Units 09-02 01:30: 00 09-02 01:21 :00 No 20U/kg 1,044 Units (20 Units/kg ?52.2 kg), Intramuscu lar, ONCE, 1 dose, On Fri09/02/23 at 2030, Routine [facility] ketorolac 10 mg tablet 09-01 00:00: 01-08 00:00 :00 No [id number] 10mg Take 1 tablet by mouth every 6 (six) hours as needed for Pain (scale 4-6) or Pain (scale 7-10). [facility] amoxicillin -clavulanat e 875-125 mg per tablet 09-01 00:00: 00 09-12 04:59 :00 No [id number] 1{tbl} Take 1 tablet by mouth every 12 (twelve) hours for 10 days. [facility] ity [facility] mupirocin 2 % cream 09-01 00:00: 00 09-04 00:00 :00 No [id number] Apply to area(s) 3 (three) times daily. [facility] traMADoL 50 mg tablet 08-24 00:00: 00 08-27 04:59 :00 No [id number] 50mg Take 1 tablet by mouth every 8 (eight) hours as needed for Pain (scale 4-6) for up to 2 days. Indication s: acute pain [facility] simethicone 80 mg chewable tablet 06-18 10:24: 48 Yes Take 80 mg as needed by oral route. [facility] ondansetron 4 mg disintegrat ing tablet 06-18 10:24: 48 Yes ondansetro n 4 mg disintegra ting tablet [facility] calcium carbonate (CALCIUM 500 ORAL) 06-18 10:19: 58 Yes Take by mouth. [facility] gabapentin 300 mg capsule 06-16 00:00: 00 07-29 04:59 :00 No [id number] 300mg Take 1 capsule by mouth in the morning and 1 capsule at noon and 1 capsule in the evening. Do all this for 42 days. [facility] lactated ringers IV infusion 1,000 mL 06-11 23:15: 00 Yes 1000mL at 75 mL/hr, 1,000 mL, IV Infusion, CONTINUOUS , Starting on Nalini 06/12/23 at 1815, Until Discontinu ed, Routine, PACU [facility] morpHINE (2 mg/mL) injection 2 mg 06-11 23:06: 39 Yes 2mg 2 mg, Slow IV Push, Q5MIN PRN, 3 doses, Starting on Nalini 06/12/23 at 1806, Until Discontinu ed, Routine, Pain (scale 4-6), PACU [facility] morpHINE (4 mg/mL) injection 4 mg 06-11 23:06: 39 Yes 4mg 4 mg, Slow IV Push, [id number], 3 doses, Starting on Nalini 06/12/23 at 1806, Until Discontinu ed, Routine, Pain (scale 7-10), PACU [facility] hydralAZINE (APRESOLINE ) injection 10 mg 06-11 23:06: 39 Yes 10mg 10 mg, Slow IV Push, Q20MIN PRN, 2 doses, Starting on Nalini 06/12/23 at 1806, Until Discontinu ed, Routine, Other, SBP > 170mmHg or DBP > 90mmHg, PACU [facility] labetaloL (NORMODYNE) injection 10 mg 06-11 23:06: 39 Yes 10mg 10 mg, Slow IV Push, Q15MIN PRN, 2 doses, Starting on Nalini 06/12/23 at 1806, Until Discontinu ed, Routine, SBP greater than 170mmHg or DBP greater than 90mmHg., PACU [facility] FENTanyl PF (SUBLIMAZE (PF)) injection 50 mcg 06-11 23:06: 39 Yes 50ug 50 mcg, Slow IV Push, Q5MIN PRN, 4 doses, Starting on Nalini 06/12/23 at 1806, Until Discontinu ed, Routine, Pain (scale 7-10), PACU [facility] FENTanyl PF (SUBLIMAZE (PF)) injection 25 mcg 06-11 23:06: 39 Yes 25ug 25 mcg, Slow IV Push, Q5MIN PRN, 4 doses, Starting on Nalini 06/12/23 at 1806, Until Discontinu ed, Routine, Pain (scale 4-6), PACU [facility] proMETHazin e (PHENERGAN) 6.25 mg in NaCl 0.9% (NS) 50 mL piggyback 06-11 23:06: 39 Yes 6.25mg 6.25 mg, IV Piggyback, at 200 mL/hr Administer over 15 Minutes, Q15MIN PRN, 4 doses, Starting on Nalini 06/12/23 at 1806, Until Discontinu ed, Routine, Nausea and Vomiting (N/V), If unresponsi ve to first choice antiemetic , PACU [facility] ondansetron (ZOFRAN (PF)) injection 4 mg 06-11 23:06: 39 Yes 4mg 4 mg, Slow IV Push, PRN, 1 dose, Starting on Nalini 06/12/23 at 1806, Until Discontinu ed, Routine, Nausea and Vomiting (N/V), PACU [facility] sodium chloride 0.9 % irrigation solution 06-11 22:48: 00 06-11 23:14 :06 No PRN, Starting on Nalini 06/12/23 at 1748, Until Nalini 06/12/23 at 1814, Intra-op [facility] iohexoL (OMNIPAQUE 300-50 mL)) injection 06-11 21:58: 00 06-11 23:14 :06 No PRN, Starting on Nalini 06/12/23 at 1658, Until Nalini 06/12/23 at 1814, Routine, Intra-op [facility] morpHINE (4 mg/mL) injection 2 mg 06-11 18:46: 12 06-11 23:14 :06 No 2mg 2 mg, Slow IV Push, Q15MIN PRN, 2 doses, Starting on Nalini 06/12/23 at 1346, Until Nalini 06/12/23 at 1814, Routine, Pain (scale 4-6), [facility] ketorolac (TORADOL) injection 30 mg 06-11 18:45: 00 06-11 19:08 :00 No 30mg 30 mg, Slow IV Push, ONCE, 1 dose, On Nalini 06/12/23 at 1400, Routine, DSU Pre-op [facility] lactated ringers IV infusion 1,000 mL 06-11 18:15: 00 06-11 18:33 :00 No 1000mL at 42 mL/hr, 1,000 mL, IV Infusion, ONCE, 1 dose, On Nalini 06/12/23 at 1315, Routine, DSU Pre-op [facility] tamsulosin (FLOMAX) 0.4 mg 24 hr capsule 06-11 00:00: 00 01-08 00:00 :00 No [id number] .4mg Take 1 capsule by mouth in the morning. [facility] oxyBUTYnin chloride 5 mg tablet 06-11 00:00: 00 01-08 00:00 :00 No [id number] 5mg Take 1 tablet by mouth in the morning and 1 tablet in the evening. [facility] cephALEXin 250 mg capsule 06-11 00:00: 00 06-17 04:59 :00 No [id number] 500mg Take 2 capsules by mouth every 12 (twelve) hours for 5 days. [facility] ketorolac (TORADOL) injection 15 mg 06-04 03:00: 00 06-04 03:06 :00 No 15mg 15 mg, Slow IV Push, ONCE, 1 dose, On Fri06/04/23 at 2200, [facility] ondansetron (ZOFRAN (PF)) injection 4 mg 06-04 03:00: 00 06-04 03:05 :00 No 4mg 4 mg, Slow IV Push, ONCE, 1 dose, On Fri06/04/23 at 2200, [facility] morpHINE (2 mg/mL) injection 2 mg 06-04 03:00: 00 06-04 03:07 :00 No 2mg 2 mg, Slow IV Push, ONCE, 1 dose, On Fri06/04/23 at 2200, STAT [facility] ibuprofen 800 mg tablet 06-03 00:00: 00 01-08 00:00 :00 No [id number] 800mg Take 1 tablet by mouth every 6 (six) hours as needed for Pain (scale 4-6) for up to 30 doses. [facility] fluconazole 200 mg tablet 06-03 00:00: 00 06-18 00:00 :00 No [id number] 400mg Take 2 tablets by mouth in the morning. [facility] ciprofloxac in HCl 500 mg tablet 06-03 00:00: 00 06-11 00:00 :00 No [id number] 500mg Take 1 tablet by mouth in the morning and 1 tablet in the evening. [facility] methocarbam oL 500 mg tablet 06-02 00:00: 00 01-08 00:00 :00 No [id number] 500mg Take 1 tablet by mouth 4 (four) times daily. [facility] tamsulosin 0.4 mg 24 hr capsule 06-02 00:00: 00 06-11 00:00 :00 No [id number] .4mg Take 1 capsule by mouth at bedtime. [facility] fluconazole (DIFLUCAN) tablet 400 mg 06-01 22:15: 00 06-08 13:59 :00 No 400mg 400 mg, Oral, DAILY, 7 doses, First dose on Fri06/02/23 at 1715, Last dose on Fri06/08/23 at 0900, JHOANA
Re ason for Anti-Infec tive: Documented Infection< br>Documen harvey Infection Site: Urine
D uration of Therapy: 7 days [facility] lactated ringers IV infusion 1,000 mL 06-01 18:30: 00 Yes 1000mL at 75 mL/hr, 1,000 mL, IV Infusion, CONTINUOUS , Starting on Fri06/02/23 at 1330, Until Discontinu ed, Routine, PACU [facility] lidocaine (XYLOCAINE) 2 % jelly URO-JET 06-01 17:56: 00 06-01 18:25 :04 No PRN, Starting on Fri06/02/23 at 1256, Until Fri06/02/23 at 1325, Routine, Intra-op [facility] sodium chloride 0.9 % irrigation solution 06-01 17:50: 00 Yes PRN, Starting on Fri06/02/23 at 1250, Until Discontinu ed, Intra-op [facility] iopamidol (ISOVUE 370-500 mL) injection 06-01 17:50: 00 06-01 18:25 :04 No PRN, Starting on Fri06/02/23 at 1250, Until Fri06/02/23 at 1325, Routine, Intra-op [facility] pantoprazol e (PROTONIX) EC tablet 40 mg 06-01 14:00: 00 Yes 40mg 40 mg, Oral, DAILY, First dose on Fri06/02/23 at 0900, Until Discontinu ed, Routine [facility] cyclobenzap rine (FLEXERIL) tablet 10 mg 06-01 08:00: 00 06-01 07:07 :00 No 10mg 10 mg, Oral, ONCE, 1 dose, On Fri06/02/23 at 0300, Routine [facility] nicotine (NICODERM) 14 mg/24 hr patch 1 Patch 06-01 04:15: 00 Yes 1{patch } 1 Patch, Topical, Administer over 24 Hours, Q24H, First dose on Fri06/01/23 at 2315, Until Discontinu ed, Routine [facility] tamsulosin (FLOMAX) capsule 0.4 mg 06-01 02:00: 00 Yes .4mg 0.4 mg, Oral, QHS, First dose on Fri06/01/23 at 2100, Until Discontinu ed, Routine [facility] atorvastati n (LIPITOR) tablet 10 mg 06-01 02:00: 00 Yes 10mg 10 mg, Oral, QHS, First dose on Fri06/01/23 at 2100, Until Discontinu ed, Routine [facility] methocarbam oL (ROBAXIN) tablet 500 mg 06-01 01:00: 00 Yes 500mg 500 mg, Oral, QID, First dose on Fri06/01/23 at 2000, Until Discontinu ed, Routine [facility] buPROPion SR (WELLBUTRIN SR) tablet 150 mg 06-01 01:00: 00 Yes 150mg 150 mg, Oral, BID, First dose on Fri06/01/23 at 2000, Until Discontinu ed, Routine [facility] acetaminoph en (TYLENOL) tablet 650 mg 05-31 23:00: 00 Yes 650mg 650 mg, Oral, Q6H, First dose (after last modificati on) on Fri06/01/23 at 1800, Until Discontinu ed, Routine [facility] lactated ringers IV infusion 1,000 mL 05-31 22:15: 00 06-01 21:59 :00 No 1000mL at 150 mL/hr, 1,000 mL, IV Infusion, CONTINUOUS , Starting on Fri06/01/23 at 1715, Until Fri06/02/23 at 1659, Routine [facility] Sliding Scale Insulin - Lispro (HumaLOG) 05-31 22:00: 00 Yes Subcutaneo us, TID MEALS+HS, First dose on Fri06/01/23 at 1700, Until Discontinu ed, Routine [facility] enoxaparin (LOVENOX) injection 40 mg 05-31 22:00: 00 Yes 40mg 40 mg, Subcutaneo us, DAILY, First dose on Fri06/01/23 at 1700, Until Discontinu ed, Routine [facility] morpHINE (4 mg/mL) injection 4 mg 05-31 21:48: 25 Yes 4mg 4 mg, Slow IV Push, Q4HPRN, Starting on Fri06/01/23 at 1648, Until Discontinu ed, Routine, Pain (scale 7-10) [facility] glucagon (GLUCAGEN DIAGNOSTIC KIT) injection 1 mg 05-31 21:46: 43 Yes 1mg 1 mg, Intramuscu lar, PRN, Starting on Fri06/01/23 at 1646, Until Discontinu ed, JHOANA, Blood Glucose < or = 70 mg/dL and patient is NPO, unable to swallow or has mental changes. [facility] dextrose 50 % in water (D50W) injection 25 mL 05-31 21:46: 43 Yes 25mL 25 mL, Slow IV Push, PRN, Starting on Fri06/01/23 at 1646, Until Discontinu ed, JHOANA, Blood Glucose < or = 70 mg/dL and patient is NPO, unable to swallow or has mental status changes. [facility] guaiFENesin (FENESIN IR) tablet 200 mg 05-31 21:46: 20 Yes 200mg 200 mg, Oral, Q4HPRN, Starting on Fri06/01/23 at 1646, Until Discontinu ed, Routine, Cough [facility] ondansetron (ZOFRAN (PF)) injection 4 mg 05-31 21:46: 20 Yes 4mg 4 mg, Slow IV Push, Q6HPRN, Starting on Fri06/01/23 at 1646, Until Discontinu ed, Routine, Nausea and Vomiting (N/V) [facility] sennosides- docusate sodium (SENOKOT-S) 8.6-50 mg per tablet 1 tablet 05-31 21:46: 20 Yes 1{tbl} 1 tablet, Oral, QDAILYPRN, Starting on Fri06/01/23 at 1646, Until Discontinu ed, Routine, Constipati on [facility] HYDROcodone -acetaminop hen (NORCO 5) 5-325 mg tablet 1 tablet 05-31 21:46: 20 06-02 21:45 :20 No 1{tbl} 1 tablet, Oral, Q6HPRN, Starting on Fri06/01/23 at 1646, Until Fri06/03/23 at 1645, Routine, Pain (scale 4-6) [facility] gabapentin (NEURONTIN) capsule 300 mg 05-31 21:45: 53 Yes 300mg 300 mg, Oral, QHSPRN, Starting on Fri06/01/23 at 1645, Until Discontinu ed, Routine, neuropathi c pain [facility] cefTRIAXone (ROCEPHIN) 1,000 mg in NaCl 0.9% (NS) 100 mL MINI-BAG 05-31 18:30: 00 05-31 19:08 :00 No 1000mg 1,000 mg, IV Piggyback, ONCE, 1 dose, On Fri06/01/23 at 1330, Administer over 30 Minutes, 100 mL
Reas on for Anti-Infec tive: Documented Infection< br>Documen harvey Infection Site: Urine
D uration of Therapy: Once (ED) [facility] ketorolac (TORADOL) injection 15 mg 05-31 17:30: 00 05-31 16:34 :00 No 15mg 15 mg, Slow IV Push, ONCE, 1 dose, On Fri06/01/23 at 1230, JHOANA [facility] NaCl 0.9% (NS) bolus infusion 1,000 mL 05-31 17:15: 00 05-31 19:08 :00 No 1000mL at 999 mL/hr, 1,000 mL, IV Infusion, ONCE, 1 dose, On Fri06/01/23 at 1215, JHOANA [facility] ondansetron (ZOFRAN (PF)) injection 4 mg 05-31 16:30: 00 05-31 16:34 :00 No 4mg 4 mg, Slow IV Push, ONCE, 1 dose, On Fri06/01/23 at 1130, JHOANA [facility] HYDROcodone -acetaminop hen 5-325 mg tablet 3-15 00:00: 00 Yes [facility] ketorolac 10 mg tablet 3-12 00:00: 00 Yes [facility] traMADoL 50 mg tablet 2-16 00:00: 00 Yes 1 po twice daily for severe pain. [facility] atorvastati n 40 mg tablet 2022-03 1- 00:00: 00 Yes 40mg Take 1 tablet by mouth at bedtime. [facility] cephALEXin (KEFLEX) capsule 500 mg 09-27 13:00: 00 Yes 500mg 500 mg, Oral, QID, First dose on Nalini 09/27/21 at 0800, Until Discontinu ed, JHOANA
Re ason for Anti-Infec tive: Documented Infection< br>Documen harvey Infection Site: Urine
D uration of Therapy: Other (see Comments) [facility] iopamidol (ISOVUE 370-500 mL) injection 100 mL 09-27 07:15: 00 09-27 05:57 :00 No [id number] 100mL 100 mL, Intravenou s, ONCE, 1 dose, On Nalini 09/27/21 at 0215, Routine [facility] NaCl 0.9% (NS) bolus infusion 1,000 mL 09-27 06:45: 00 09-27 14:48 :00 No 1000mL at 999 mL/hr, 1,000 mL, IV Infusion, ONCE, 1 dose, On Nalini 09/27/21 at 0145, JHOANA [facility] ondansetron (ZOFRAN (PF)) injection 4 mg 09-27 06:45: 00 09-27 06:21 :00 No 4mg 4 mg, Slow IV Push, ONCE, 1 dose, On Fri09/27/21 at 0145, JHOANA [facility] ketorolac (TORADOL) injection 15 mg 09-27 05:45: 00 09-27 06:21 :00 No 15mg 15 mg, Slow IV Push, ONCE, 1 dose, On Fri09/27/21 at 0045, JHOANA [facility] cefTRIAXone (ROCEPHIN) 1,000 mg in NaCl 0.9% (NS) 50 mL MINI-BAG 09-27 05:30: 00 09-27 08:24 :00 No 1000mg 1,000 mg, IV Piggyback, ONCE, 1 dose, On Fri09/27/21 at 0030, Administer over 30 Minutes, 50 mL
Reas on for Anti-Infec tive: Documented Infection< br>Documen harvey Infection Site: Urine
D uration of Therapy: Other (see Comments) [facility] diazePAM (VALIUM) tablet 5 mg 09-27 04:15: 00 09-27 04:46 :00 No 5mg 5 mg, Oral, ONCE, 1 dose, On Fri09/26/21 at 2315, JHOANA [facility] glipiZIDE 10 mg tablet 09-27 00:00: 00 Yes [id number] 10mg Take 1 tablet by mouth in the morning. [facility] cefdinir 300 mg capsule 09-27 00:00: 00 06-11 00:00 :00 No [id number] 300mg Take 1 capsule by mouth in the morning and 1 capsule in the evening. [facility] atorvastati n 10 mg tablet 08-07 00:00: 00 06-18 00:00 :00 No [id number] 10mg Take 1 tablet by mouth at bedtime. [facility] atorvastati n 10 mg tablet 2020-03 00:00: 00 Yes [id number] 10mg Take 1 tablet by mouth at bedtime. [facility] gabapentin 300 mg capsule 2020-03 0 00:00: 00 06-11 00:00 :00 No [id number] 300mg Take 1 capsule by mouth at bedtime as needed. [facility] glipiZIDE XL 5 mg 24 hr tablet 2020-03 00:00: 00 06-18 00:00 :00 No [id number] 5mg Take 1 tablet by mouth daily with breakfast. [facility] BUPROPION SR 150 mg SR tablet 12-11 00:00: 00 06-11 00:00 :00 No [id number] TAKE 1 TABLET BY MOUTH TWICE A DAY [facility] pantoprazol e 40 mg EC tablet 12-06 00:00: 00 06-11 00:00 :00 No [id number] 40mg Take 1 tablet by mouth daily. [facility] metFORMIN 1,000 mg tablet 12-04 00:00: 00 03-15 00:00 :00 No [id number] 1000mg Take 1 tablet by mouth 2 (two) times daily with meals. [facility] lisinopriL 5 mg tablet 11-29 00:00: 00 03-15 00:00 :00 No [id number] 5mg Take 1 tablet by mouth daily. [facility] blood sugar diagnostic (ONETOUCH ULTRA TEST) strip 11-23 00:00: 00 Yes Use to test glucose once a day E11.9 [facility] blood sugar diagnostic (ONETOUCH ULTRA TEST) strip 11-23 00:00: 00 Yes Use to test glucose once a day E11.9 [facility] lancets (ONETOUCH DELICA LANCETS) 30 gauge Misc 11-23 00:00: 00 Yes Use to test glucose once a day E11.9 [facility] albuterol 90 mcg/actuati on inhaler 11-16 00:00: 00 06-11 00:00 :00 No [id number] 2{puff} Inhale 2 Puffs every 4 (four) hours as needed for Wheezing or Shortness of Breath. [facility] acetaminoph en (TYLENOL EXTRA STRENGTH) 500 mg tablet 11-16 00:00: 00 06-11 00:00 :00 No [id number] 500mg Take 1 tablet by mouth every 6 (six) hours as needed for Pain for up to 20 doses. [facility] amlodipine 5 mg tablet Take by oral route for 90 days. amlodipine 5 mg tablet Take by oral route for 90 days. No amlodipine 5 mg tablet Take by oral route for 90 days. [facility] aspirin 81 mg chewable tablet Chew 1 tablet every day by oral route. aspirin 81 mg chewable tablet Chew 1 tablet every day by oral route. No 1 Q1D aspirin 81 mg chewable tablet Chew 1 tablet every day by oral route. [facility] Calcium 600 + D(3) 600 mg-10 mcg (400 unit) tablet Take 1 tablet every day by oral route. Calcium 600 + D(3) 600 mg-10 mcg (400 unit) tablet Take 1 tablet every day by oral route. No 1 Q1D Calcium 600 + D(3) 600 mg-10 mcg (400 unit) tablet Take 1 tablet every day by oral route. [facility] glipizide ER 10 mg [...] day by oral route for 90 days. [facility] glipizide ER 2.5 mg tablet, extended release 24 hr TAKE 1 TABLET BY MOUTH EVERY DAY glipizide ER 2.5 mg tablet, extended release 24 hr TAKE 1 TABLET BY MOUTH EVERY DAY No glipizide ER 2.5 mg tablet, extended release 24 hr TAKE 1 TABLET BY MOUTH EVERY DAY [facility] hydroxyzine HCl 50 mg tablet TAKE 1 TABLET BY MOUTH FOUR TIMES A DAY FOR 10 DAYS hydroxyzine HCl 50 mg tablet TAKE 1 TABLET BY MOUTH FOUR TIMES A DAY FOR 10 DAYS No hydroxyzin e HCl 50 mg tablet TAKE 1 TABLET BY MOUTH FOUR TIMES A DAY FOR 10 DAYS [facility] ibuprofen 200 mg capsule Take 3 capsules every 4 hours by oral route for 3 days. ibuprofen 200 mg capsule Take 3 capsules every 4 hours by oral route for 3 days. No 3capsul e(s) Q4H ibuprofen 200 mg capsule Take 3 capsules every 4 hours by oral route for 3 days. [facility] metformin ER 500 [...] day by oral route for 90 days. [facility] omeprazole 20 mg tablet,billy yed release Take 1 tablet every day by oral route. omeprazole 20 mg tablet,billy yed release Take 1 tablet every day by oral route. No 1 Q1D omeprazole 20 mg tablet,del ayed release Take 1 tablet every day by oral route. [facility] OneTouch Delica Lancets 30 gauge OneTouch Delica Lancets 30 gauge No OneTouch Delica Lancets 30 gauge [facility] OneTouch Ultra Test strips Use as directed. OneTouch Ultra Test strips Use as directed. No OneTouch Ultra Test strips Use as directed. [facility] tramadol 37.5 mg-acetamin [...] TO 6 HOURS NEEDED FOR MODERATE PAIN [facility] amlodipine 5 mg tablet Take by oral route for 90 days. amlodipine 5 mg tablet Take by oral route for 90 days. No amlodipine 5 mg tablet Take by oral route for 90 days. [facility] aspirin 81 mg chewable tablet Chew 1 tablet every day by oral route. aspirin 81 mg chewable tablet Chew 1 tablet every day by oral route. No 1 Q1D aspirin 81 mg chewable tablet Chew 1 tablet every day by oral route. [facility] atorvastati n 40 mg tablet TAKE 1 TABLET BY MOUTH EVERYDAY AT BEDTIME atorvastati n 40 mg tablet TAKE 1 TABLET BY MOUTH EVERYDAY AT BEDTIME No atorvastat in 40 mg tablet TAKE 1 TABLET BY MOUTH EVERYDAY AT BEDTIME [facility] Calcium 600 + D(3) 600 mg-10 mcg (400 unit) tablet Take 1 tablet every day by oral route. Calcium 600 + D(3) 600 mg-10 mcg (400 unit) tablet Take 1 tablet every day by oral route. No 1 Q1D Calcium 600 + D(3) 600 mg-10 mcg (400 unit) tablet Take 1 tablet every day by oral route. [facility] Cipro 500 mg tablet Take 1 tablet every 12 hours by oral route for 7 days. Cipro 500 mg tablet Take 1 tablet every 12 hours by oral route for 7 days. No 1 Q12H Cipro 500 mg tablet Take 1 tablet every 12 hours by oral route for 7 days. [facility] glipizide 10 mg tablet TAKE 1 TABLET BY MOUTH EVERY DAY IN THE MORNING glipizide 10 mg tablet TAKE 1 TABLET BY MOUTH EVERY DAY IN THE MORNING No glipizide 10 mg tablet TAKE 1 TABLET BY MOUTH EVERY DAY IN THE MORNING [facility] glipizide ER 10 [...] day by oral route for 90 days. [facility] glipizide ER 2.5 mg tablet, extended release 24 hr TAKE 1 TABLET BY MOUTH EVERY DAY glipizide ER 2.5 mg tablet, extended release 24 hr TAKE 1 TABLET BY MOUTH EVERY DAY No glipizide ER 2.5 mg tablet, extended release 24 hr TAKE 1 TABLET BY MOUTH EVERY DAY [facility] hydroxyzine HCl 50 mg tablet TAKE 1 TABLET BY MOUTH FOUR TIMES A DAY FOR 10 DAYS hydroxyzine HCl 50 mg tablet TAKE 1 TABLET BY MOUTH FOUR TIMES A DAY FOR 10 DAYS No hydroxyzin e HCl 50 mg tablet TAKE 1 TABLET BY MOUTH FOUR TIMES A DAY FOR 10 DAYS [facility] metformin ER 500 [...] day by oral route for 90 days. [facility] omeprazole 20 mg capsule,del ayed release omeprazole 20 mg capsule,del ayed release No omeprazole 20 mg capsule,de layed release [facility] omeprazole 20 mg tablet,billy yed release Take 1 tablet every day by oral route. omeprazole 20 mg tablet,billy yed release Take 1 tablet every day by oral route. No 1 Q1D omeprazole 20 mg tablet,del ayed release Take 1 tablet every day by oral route. [facility] ondansetron 4 mg disintegrat ing tablet ondansetron 4 mg disintegrat ing tablet No ondansetro n 4 mg disintegra ting tablet [facility] OneTouch Delica Lancets 30 gauge OneTouch Delica Lancets 30 gauge No OneTouch Delica Lancets 30 gauge [facility] OneTouch Ultra Test strips Use as directed. OneTouch Ultra Test strips Use as directed. No OneTouch Ultra Test strips Use as directed. [facility] tramadol 37.5 mg-acetamin [...] TO 6 HOURS NEEDED FOR MODERATE PAIN [facility] aspirin 81 mg chewable tablet Chew 1 tablet every day by oral route. aspirin 81 mg chewable tablet Chew 1 tablet every day by oral route. No 1 Q1D aspirin 81 mg chewable tablet Chew 1 tablet every day by oral route. [facility] atorvastati n 40 mg tablet Take 1 tablet every day by oral route for 30 days. atorvastati n 40 mg tablet Take 1 tablet every day by oral route for 30 days. No 1 Q1D atorvastat in 40 mg tablet Take 1 tablet every day by oral route for 30 days. [facility] Bromfed DM 2 [...] day by oral route for 7 days. [facility] Calcium 600 + D(3) 600 mg-10 mcg (400 unit) tablet Take 1 tablet every day by oral route. Calcium 600 + D(3) 600 mg-10 mcg (400 unit) tablet Take 1 tablet every day by oral route. No 1 Q1D Calcium 600 + D(3) 600 mg-10 mcg (400 unit) tablet Take 1 tablet every day by oral route. [facility] cholecalcif dina (vitamin [...] week by oral route for 90 days. [facility] glipizide ER 10 [...] day by oral route for 30 days. [facility] levofloxaci n 750 mg tablet Take 1 tablet every day by oral route for 7 days. levofloxaci n 750 mg tablet Take 1 tablet every day by oral route for 7 days. No 1 Q1D levofloxac in 750 mg tablet Take 1 tablet every day by oral route for 7 days. [facility] lisinopril 5 mg tablet 1 tab by mouth daily lisinopril 5 mg tablet 1 tab by mouth daily No lisinopril 5 mg tablet 1 tab by mouth daily [facility] metformin 500 mg tablet Take 1 tablet twice a day by oral route for 30 days. metformin 500 mg tablet Take 1 tablet twice a day by oral route for 30 days. No 1 BID metformin 500 mg tablet Take 1 tablet twice a day by oral route for 30 days. [facility] albuterol sulfate HFA 90 mcg/actuati on aerosol inhaler Inhale 2 puffs every 4 hours by inhalation route. albuterol sulfate HFA 90 mcg/actuati on aerosol inhaler Inhale 2 puffs every 4 hours by inhalation route. No 2puff(s ) Q4H albuterol sulfate HFA 90 mcg/actuat ion aerosol inhaler Inhale 2 puffs every 4 hours by inhalation route. [facility] aspirin 81 mg chewable tablet Chew 1 tablet every day by oral route. aspirin 81 mg chewable tablet Chew 1 tablet every day by oral route. No 1 Q1D aspirin 81 mg chewable tablet Chew 1 tablet every day by oral route. [facility] atorvastati n 40 mg tablet Take 1 tablet every day by oral route for 30 days. atorvastati n 40 mg tablet Take 1 tablet every day by oral route for 30 days. No 1 Q1D atorvastat in 40 mg tablet Take 1 tablet every day by oral route for 30 days. [facility] Calcium 600 + D(3) 600 mg-10 mcg (400 unit) tablet Take 1 tablet every day by oral route. Calcium 600 + D(3) 600 mg-10 mcg (400 unit) tablet Take 1 tablet every day by oral route. No 1 Q1D Calcium 600 + D(3) 600 mg-10 mcg (400 unit) tablet Take 1 tablet every day by oral route. [facility] cholecalcif dina (vitamin [...] week by oral route for 90 days. [facility] glipizide ER 10 [...] for 30 days. [facility] lisinopril 5 mg tablet 1 tab by mouth daily lisinopril 5 mg tablet 1 tab by mouth daily No lisinopril 5 mg tablet 1 tab by mouth daily [facility] metformin 500 mg tablet Take 1 tablet twice a day by oral route for 30 days. metformin 500 mg tablet Take 1 tablet twice a day by oral route for 30 days. No 1 BID metformin 500 mg tablet Take 1 tablet twice a day by oral route for 30 days. [facility] tramadol 50 mg tablet Take 1 tablet twice a day by oral route for 30 days. tramadol 50 mg tablet Take 1 tablet twice a day by oral route for 30 days. No 1 BID tramadol 50 mg tablet Take 1 tablet twice a day by oral route for 30 days. [facility] albuterol sulfate HFA 90 mcg/actuati on aerosol inhaler Inhale 2 puffs every 4 hours by inhalation route. albuterol sulfate HFA 90 mcg/actuati on aerosol inhaler Inhale 2 puffs every 4 hours by inhalation route. No 2puff(s ) Q4H albuterol sulfate HFA 90 mcg/actuat ion aerosol inhaler Inhale 2 puffs every 4 hours by inhalation route. [facility] aspirin 81 mg chewable tablet Chew 1 tablet every day by oral route. aspirin 81 mg chewable tablet Chew 1 tablet every day by oral route. No 1 Q1D aspirin 81 mg chewable tablet Chew 1 tablet every day by oral route. [facility] atorvastati n 40 mg tablet Take 1 tablet every day by oral route for 30 days. atorvastati n 40 mg tablet Take 1 tablet every day by oral route for 30 days. No 1 Q1D atorvastat in 40 mg tablet Take 1 tablet every day by oral route for 30 days. [facility] Calcium 600 + D(3) 600 mg-10 mcg (400 unit) tablet Take 1 tablet every day by oral route. Calcium 600 + D(3) 600 mg-10 mcg (400 unit) tablet Take 1 tablet every day by oral route. No 1 Q1D Calcium 600 + D(3) 600 mg-10 mcg (400 unit) tablet Take 1 tablet every day by oral route. [facility] cholecalcif dina (vitamin [...] week by oral route for 90 days. [facility] glipizide ER 10 [...] day by oral route for 30 days. [facility] lisinopril 5 mg tablet 1 tab by mouth daily lisinopril 5 mg tablet 1 tab by mouth daily No lisinopril 5 mg tablet 1 tab by mouth daily [facility] metformin 500 mg tablet Take 1 tablet twice a day by oral route for 30 days. metformin 500 mg tablet Take 1 tablet twice a day by oral route for 30 days. No 1 BID metformin 500 mg tablet Take 1 tablet twice a day by oral route for 30 days. [facility] tramadol 50 mg tablet Take 1 tablet twice a day by oral route for 30 days. tramadol 50 mg tablet Take 1 tablet twice a day by oral route for 30 days. No 1 BID tramadol 50 mg tablet Take 1 tablet twice a day by oral route for 30 days. [facility] atorvastati n 40 mg tablet Take 1 tablet every day by oral route for 30 days. atorvastati n 40 mg tablet Take 1 tablet every day by oral route for 30 days. No 1 Q1D atorvastat in 40 mg tablet Take 1 tablet every day by oral route for 30 days. [facility] Calcium 600 + D(3) 600 mg-10 mcg (400 unit) tablet Take 1 tablet every day by oral route. Calcium 600 + D(3) 600 mg-10 mcg (400 unit) tablet Take 1 tablet every day by oral route. No 1 Q1D Calcium 600 + D(3) 600 mg-10 mcg (400 unit) tablet Take 1 tablet every day by oral route. [facility] cholecalcif dina (vitamin [...] week by oral route for 90 days. [facility] glipizide ER 10 [...] day by oral route for 30 days. [facility] lisinopril 5 mg tablet 1 tab by mouth daily lisinopril 5 mg tablet 1 tab by mouth daily No lisinopril 5 mg tablet 1 tab by mouth daily [facility] metformin ER 500 [...] every day by oral route at dinner. [facility] Naprosyn 500 mg tablet 1 po twice daily with food as needed for joint pain. Naprosyn 500 mg tablet 1 po twice daily with food as needed for joint pain. No Naprosyn 500 mg tablet 1 po twice daily with food as needed for joint pain. [facility] tramadol 50 mg tablet 1 po twice daily for severe pain. tramadol 50 mg tablet 1 po twice daily for severe pain. No tramadol 50 mg tablet 1 po twice daily for severe pain. [facility] atorvastati n 40 mg tablet Take 1 tablet every day by oral route for 30 days. atorvastati n 40 mg tablet Take 1 tablet every day by oral route for 30 days. No 1 Q1D atorvastat in 40 mg tablet Take 1 tablet every day by oral route for 30 days. [facility] famotidine 20 mg [...] day by oral route for 30 days. [facility] lisinopril 5 mg tablet 1 tab by mouth daily lisinopril 5 mg tablet 1 tab by mouth daily No lisinopril 5 mg tablet 1 tab by mouth daily [facility] loperamide 2 mg tablet Take 2 mg as needed by oral route. loperamide 2 mg tablet Take 2 mg as needed by oral route. No 2mg loperamide 2 mg tablet Take 2 mg as needed by oral route. [facility] metformin ER 500 [...] every day by oral route at dinner. [facility] tramadol 50 mg tablet 1 po twice daily for severe pain. tramadol 50 mg tablet 1 po twice daily for severe pain. No tramadol 50 mg tablet 1 po twice daily for severe pain. [facility] Immunizations Ordered Immunization Name Filled Immunization Name Date Status Comments Source Human Rabies Vaccine From Chicken Fibroblast Culture (RABAVERT) 2023-09-16 00:00:00 Completed Human Rabies Vaccine From Chicken Fibroblast Culture (RABAVERT) 2023-09-09 00:00:00 Completed Human Rabies Vaccine From Chicken Fibroblast Culture (RABAVERT) 2023-09-05 00:00:00 Completed [facility] Human Rabies Vaccine From Chicken Fibroblast Culture (RABAVERT) 2023-09-02 00:00:00 Completed [facility] TDAP 2018-05-13 00:00:00 Completed [facility] TDAP 2018-05-13 00:00:00 Completed [facility] TDAP 2018-05-13 00:00:00 Completed [facility] TDAP 2018-05-13 00:00:00 Completed [facility] TDAP 2018-05-13 00:00:00 Completed [facility] TDAP 2018-05-13 00:00:00 Completed [facility] TDAP Unknown Completed [facility] TDAP Unknown Completed [facility] TDAP Unknown Completed [facility] TDAP Unknown Completed [facility] TDAP Unknown Completed [facility] TDAP Unknown Completed [facility] TDAP Unknown Completed [facility] TDAP Unknown Completed [facility] TDAP Unknown Completed [facility] TDAP Unknown Completed [facility] TDAP Unknown Completed [facility] TDAP Unknown Completed [facility] TDAP Unknown Completed [facility] TDAP Unknown Completed [facility] TDAP Unknown Completed [facility] TDAP Unknown Completed [facility] TDAP Unknown Completed [facility] TDAP Unknown Completed [facility] TDAP Unknown Completed [facility] TDAP Unknown Completed [facility] TDAP Unknown Completed [facility] TDAP Unknown Completed [facility] TDAP Unknown Completed [facility] TDAP Unknown Completed [facility] TDAP Unknown Completed [facility] TDAP Unknown Completed [facility] TDAP Unknown Completed [facility] TDAP Unknown Completed [facility] TDAP Unknown Completed [facility] TDAP Unknown Completed [facility] TDAP Unknown Completed [facility] Human Rabies Vaccine From Chicken Fibroblast Culture (RABAVERT) Unknown Completed [facility] TDAP Unknown Completed [facility] Human Rabies Vaccine From Chicken Fibroblast Culture (RABAVERT) Unknown Completed [facility] TDAP Unknown Completed [facility] Human Rabies Vaccine From Chicken Fibroblast Culture (RABAVERT) Unknown Completed [facility] Human Rabies Vaccine From Chicken Fibroblast Culture (RABAVERT) Unknown Completed [facility] TDAP Unknown Completed [facility] TDAP Unknown Completed [facility] Human Rabies Vaccine From Chicken Fibroblast Culture (RABAVERT) Unknown Completed [facility] Human Rabies Vaccine From Chicken Fibroblast Culture (RABAVERT) Unknown Completed [facility] TDAP Unknown Completed [facility] Human Rabies Vaccine From Chicken Fibroblast Culture (RABAVERT) Unknown Completed [facility] Human Rabies Vaccine From Chicken Fibroblast Culture (RABAVERT) Unknown Completed [facility] TDAP Unknown Completed [facility] Human Rabies Vaccine From Chicken Fibroblast Culture (RABAVERT) Unknown Completed [facility] Human Rabies Vaccine From Chicken Fibroblast Culture (RABAVERT) Unknown Completed [facility] TDAP Unknown Completed [facility] Human Rabies Vaccine From Chicken Fibroblast Culture (RABAVERT) Unknown Completed [facility] Human Rabies Vaccine From Chicken Fibroblast Culture (RABAVERT) Unknown Completed [facility] TDAP Unknown Completed [facility] Human Rabies Vaccine From Chicken Fibroblast Culture (RABAVERT) Unknown Completed [facility] Human Rabies Vaccine From Chicken Fibroblast Culture (RABAVERT) Unknown Completed [facility] TDAP Unknown Completed [facility] Human Rabies Vaccine From Chicken Fibroblast Culture (RABAVERT) Unknown Completed [facility] Human Rabies Vaccine From Chicken Fibroblast Culture (RABAVERT) Unknown Completed [facility] TDAP Unknown Completed [facility] Human Rabies Vaccine From Chicken Fibroblast Culture (RABAVERT) Unknown Completed [facility] Human Rabies Vaccine From Chicken Fibroblast Culture (RABAVERT) Unknown Completed [facility] TDAP Unknown Completed [facility] Human Rabies Vaccine From Chicken Fibroblast Culture (RABAVERT) Unknown Completed [facility] Human Rabies Vaccine From Chicken Fibroblast Culture (RABAVERT) Unknown Completed [facility] TDAP Unknown Completed [facility] Human Rabies Vaccine From Chicken Fibroblast Culture (RABAVERT) Unknown Completed [facility] Human Rabies Vaccine From Chicken Fibroblast Culture (RABAVERT) Unknown Completed [facility] TDAP Unknown Completed [facility] Human Rabies Vaccine From Chicken Fibroblast Culture (RABAVERT) Unknown Completed [facility] Human Rabies Vaccine From Chicken Fibroblast Culture (RABAVERT) Unknown Completed [facility] TDAP Unknown Completed [facility] Human Rabies Vaccine From Chicken Fibroblast Culture (RABAVERT) Unknown Completed [facility] Human Rabies Vaccine From Chicken Fibroblast Culture (RABAVERT) Unknown Completed [facility] TDAP Unknown Completed [facility] Human Rabies Vaccine From Chicken Fibroblast Culture (RABAVERT) Unknown Completed [facility] Human Rabies Vaccine From Chicken Fibroblast Culture (RABAVERT) Unknown Completed [facility] TDAP Unknown Completed [facility] Human Rabies Vaccine From Chicken Fibroblast Culture (RABAVERT) Unknown Completed [facility] Human Rabies Vaccine From Chicken Fibroblast Culture (RABAVERT) Unknown Completed [facility] Vital Signs Vital Name Observation Time Observation Value Comments S ource Respiratory rate 2024-03-16 20:42:00 16 /min [facility] Body height 2024-03-16 20:42:00 149.9 cm [facility] Body weight 2024-03-16 20:42:00 58.968 kg [facility] BMI 2024-03-16 20:42:00 26.26 kg/m2 [facility] Systolic blood pressure 2024-02-27 19:49:00 102 mm[Hg] [facility] Diastolic blood pressure 2024-02-27 19:49:00 74 mm[Hg] [facility] Heart rate 2024-02-27 19:49:00 80 /min [facility] Body temperature 2024-02-27 19:49:00 36.72 Fauzia [facility] Body height 2024-02-27 19:49:00 149.9 cm [facility] Body weight 2024-02-27 19:49:00 58.968 kg [facility] BMI 2024-02-27 19:49:00 26.26 kg/m2 [facility] Systolic blood pressure 2024-01-09 20:16:00 138 mm[Hg] [facility] Diastolic blood pressure 2024-01-09 20:16:00 86 mm[Hg] [facility] Heart rate 2024-01-09 20:16:00 79 /min [facility] Body temperature 2024-01-09 20:16:00 36.78 Fauzia [facility] Respiratory rate 2024-01-09 20:16:00 18 /min [facility] Body height 2024-01-09 20:16:00 149.9 cm [facility] Body weight 2024-01-09 20:16:00 55.792 kg [facility] BMI 2024-01-09 20:16:00 24.84 kg/m2 [facility] Oxygen saturation in Arterial blood by Pulse oximetry 2024-01-09 20:16:00 98 /min [facility] Systolic blood pressure 2023-09-17 00:59:00 136 mm[Hg] [facility] Diastolic blood pressure 2023-09-17 00:59:00 80 mm[Hg] [facility] Heart rate 2023-09-17 00:59:00 62 /min [facility] Body temperature 2023-09-17 00:59:00 36.78 Fauzia [facility] Respiratory rate 2023-09-17 00:59:00 17 /min [facility] Body weight 2023-09-17 00:59:00 52.617 kg [facility] BMI 2023-09-17 00:59:00 23.43 kg/m2 [facility] Oxygen saturation in Arterial blood by Pulse oximetry 2023-09-17 00:59:00 98 /min [facility] Systolic blood pressure 2023-09-11 13:27:00 147 mm[Hg] [facility] Diastolic blood pressure 2023-09-11 13:27:00 78 mm[Hg] [facility] Heart rate 2023-09-11 13:27:00 71 /min [facility] Body height 2023-09-11 13:27:00 149.9 cm [facility] Body weight 2023-09-11 13:27:00 53.524 kg [facility] BMI 2023-09-11 13:27:00 23.83 kg/m2 [facility] Oxygen saturation in Arterial blood by Pulse oximetry 2023-09-11 13:27:00 97 /min [facility] Systolic blood pressure 2023-09-10 14:07:00 150 mm[Hg] [facility] Diastolic blood pressure 2023-09-10 14:07:00 83 mm[Hg] [facility] Heart rate 2023-09-10 14:06:00 65 /min [facility] Body height 2023-09-10 14:06:00 149.9 cm [facility] Body weight 2023-09-10 14:06:00 53.842 kg [facility] BMI 2023-09-10 14:06:00 23.97 kg/m2 [facility] Oxygen saturation in Arterial blood by Pulse oximetry 2023-09-10 14:06:00 98 /min [facility] Systolic blood pressure 2023-09-10 01:22:00 132 mm[Hg] [facility] Diastolic blood pressure 2023-09-10 01:22:00 89 mm[Hg] [facility] Heart rate 2023-09-10 01:22:00 63 /min [facility] Body temperature 2023-09-10 01:22:00 36.28 Fauzia [facility] Respiratory rate 2023-09-10 01:22:00 17 /min [facility] Body height 2023-09-10 01:22:00 149.9 cm [facility] Body weight 2023-09-10 01:22:00 53.695 kg [facility] BMI 2023-09-10 01:22:00 23.91 kg/m2 [facility] Oxygen saturation in Arterial blood by Pulse oximetry 2023-09-10 01:22:00 100 /min [facility] Systolic blood pressure 2023-09-06 00:30:00 116 mm[Hg] [facility] Diastolic blood pressure 2023-09-06 00:30:00 72 mm[Hg] [facility] Heart rate 2023-09-06 00:30:00 69 /min [facility] Body temperature 2023-09-06 00:30:00 36.78 Fauzia [facility] Respiratory rate 2023-09-06 00:30:00 18 /min [facility] Body weight 2023-09-06 00:30:00 52.617 kg [facility] BMI 2023-09-06 00:30:00 23.43 kg/m2 [facility] Oxygen saturation in Arterial blood by Pulse oximetry 2023-09-06 00:30:00 99 /min [facility] Systolic blood pressure 2023-09-03 00:35:00 157 mm[Hg] [facility] Diastolic blood pressure 2023-09-03 00:35:00 92 mm[Hg] [facility] Heart rate 2023-09-03 00:35:00 64 /min [facility] Body temperature 2023-09-03 00:35:00 36.94 Fauzia [facility] Respiratory rate 2023-09-03 00:35:00 16 /min [facility] Body height 2023-09-03 00:35:00 149.9 cm [facility] Body weight 2023-09-03 00:35:00 52.164 kg [facility] BMI 2023-09-03 00:35:00 23.23 kg/m2 [facility] Oxygen saturation in Arterial blood by Pulse oximetry 2023-09-03 00:35:00 100 /min [facility] Systolic blood pressure 2023-08-26 00:04:00 108 mm[Hg] [facility] Diastolic blood pressure 2023-08-26 00:04:00 67 mm[Hg] [facility] Heart rate 2023-08-26 00:04:00 65 /min [facility] Body temperature 2023-08-26 00:04:00 36.78 Fauzia [facility] Respiratory rate 2023-08-26 00:04:00 17 /min [facility] Body height 2023-08-26 00:04:00 149.9 cm [facility] Body weight 2023-08-26 00:04:00 52.787 kg [facility] BMI 2023-08-26 00:04:00 23.50 kg/m2 [facility] Oxygen saturation in Arterial blood by Pulse oximetry 2023-08-26 00:04:00 96 /min [facility] Body weight 2023-06-19 19:24:00 54.432 kg [facility] BMI 2023-06-19 19:24:00 24.24 kg/m2 [facility] Systolic blood pressure 2023-06-18 21:19:00 119 mm[Hg] [facility] Diastolic blood pressure 2023-06-18 21:19:00 73 mm[Hg] [facility] Heart rate 2023-06-18 21:19:00 66 /min [facility] Body temperature 2023-06-18 21:19:00 37.17 Fauzia [facility] Respiratory rate 2023-06-18 21:19:00 16 /min [facility] Body height 2023-06-18 21:19:00 149.9 cm [facility] Body weight 2023-06-18 21:19:00 54.432 kg [facility] BMI 2023-06-18 21:19:00 24.24 kg/m2 [facility] Oxygen saturation in Arterial blood by Pulse oximetry 2023-06-18 21:19:00 97 /min [facility] Systolic blood pressure 2023-06-13 00:25:00 104 mm[Hg] [facility] Diastolic blood pressure 2023-06-13 00:25:00 70 mm[Hg] [facility] Heart rate 2023-06-13 00:25:00 81 /min [facility] Respiratory rate 2023-06-13 00:25:00 12 /min [facility] Oxygen saturation in Arterial blood by Pulse oximetry 2023-06-13 00:25:00 95 /min [facility] Body temperature 2023-06-12 23:11:00 36 Fauzia [facility] Body height 2023-06-12 18:16:00 149.9 cm [facility] Body weight 2023-06-12 18:16:00 54.432 kg [facility] BMI 2023-06-12 18:16:00 24.24 kg/m2 [facility] Systolic blood pressure 2023-06-12 18:16:00 111 mm[Hg] [facility] Diastolic blood pressure 2023-06-12 18:16:00 70 mm[Hg] [facility] Heart rate 2023-06-12 18:16:00 88 /min [facility] Body temperature 2023-06-12 18:16:00 36.89 Fauzia [facility] Respiratory rate 2023-06-12 18:16:00 18 /min [facility] Body height 2023-06-12 18:16:00 149.9 cm [facility] Body weight 2023-06-12 18:16:00 54.432 kg [facility] BMI 2023-06-12 18:16:00 24.24 kg/m2 [facility] Oxygen saturation in Arterial blood by Pulse oximetry 2023-06-12 18:16:00 98 /min [facility] Systolic blood pressure 2023-06-05 03:07:00 165 mm[Hg] [facility] Diastolic blood pressure 2023-06-05 03:07:00 83 mm[Hg] [facility] Heart rate 2023-06-05 03:07:00 86 /min [facility] Body temperature 2023-06-05 03:07:00 37.72 Fauzia [facility] Respiratory rate 2023-06-05 03:07:00 18 /min [facility] Oxygen saturation in Arterial blood by Pulse oximetry 2023-06-05 03:07:00 97 /min [facility] Body height 2023-06-04 22:16:00 149.9 cm [facility] Body weight 2023-06-04 22:16:00 54.432 kg [facility] BMI 2023-06-04 22:16:00 24.24 kg/m2 [facility] Systolic blood pressure 2023-06-03 21:08:00 156 mm[Hg] [facility] Diastolic blood pressure 2023-06-03 21:08:00 82 mm[Hg] [facility] Heart rate 2023-06-03 21:08:00 88 [facility] 2023-06-03 21:08:00 36.72 Fauzia [facility] Respiratory rate 2023-06-03 21:08:00 18 /min [facility] Oxygen saturation in Arterial blood by Pulse oximetry 2023-06-03 21:08:00 96 /min [facility] Body weight 2023-06-03 09:22:00 55.974 kg [facility] BMI 2023-06-03 09:22:00 24.92 kg/m2 [facility] Body height 2023-06-02 16:13:00 149.9 cm [facility] Systolic blood pressure 2023-06-02 18:50:00 112 mm[Hg] [facility] Diastolic blood pressure 2023-06-02 18:50:00 61 mm[Hg] [facility] Heart rate 2023-06-02 18:50:00 80 /min [facility] Respiratory rate 2023-06-02 18:50:00 16 /min [facility] Oxygen saturation in Arterial blood by Pulse oximetry 2023-06-02 18:50:00 95 /min [facility] Body temperature 2023-06-02 18:19:00 38 Fauzia [facility] Body height 2023-06-02 16:13:00 149.9 cm [facility] Body weight 2023-06-02 16:13:00 56.246 kg [facility] BMI 2023-06-02 16:13:00 24.92 kg/m2 [facility] BP Diastolic 2023-05-02 00:00:00 72 mm[Hg] [facility] BP Systolic 2023-05-02 00:00:00 117 mm[Hg] [facility] BMI (Body Mass Index) 2023-05-02 00:00:00 25.2 kg/m2 [facility] Height 2023-05-02 00:00:00 59 [in_i] [facility] Body Weight 2023-05-02 00:00:00 125 [lb_av] [facility] BP Systolic 2023-01-23 00:00:00 129 mm[Hg] [facility] BMI (Body Mass Index) 2023-01-23 00:00:00 24.9 kg/m2 [facility] Height 2023-01-23 00:00:00 59 [in_i] [facility] BP Diastolic 2023-01-23 00:00:00 78 mm[Hg] [facility] Body Weight 2023-01-23 00:00:00 123.4 [lb_av] [facility] BP Diastolic 2022-05-30 00:00:00 81 mm[Hg] [facility] Height 2022-05-30 00:00:00 59 [in_i] [facility] BMI (Body Mass Index) 2022-05-30 00:00:00 23.7 kg/m2 [facility] BP Systolic 2022-05-30 00:00:00 130 mm[Hg] [facility] Body Weight 2022-05-30 00:00:00 117.4 [lb_av] [facility] BP Diastolic 2022-04-25 00:00:00 79 mm[Hg] [facility] Height 2022-04-25 00:00:00 59 [in_i] [facility] BMI (Body Mass Index) 2022-04-25 00:00:00 23.7 kg/m2 [facility] BP Systolic 2022-04-25 00:00:00 124 mm[Hg] [facility] Body Weight 2022-04-25 00:00:00 117.4 [lb_av] [facility] BP Diastolic 2022-03-28 00:00:00 83 mm[Hg] [facility] Height 2022-03-28 00:00:00 59 [in_i] [facility] BMI (Body Mass Index) 2022-03-28 00:00:00 23.2 kg/m2 [facility] BP Systolic 2022-03-28 00:00:00 126 mm[Hg] [facility] Body Weight 2022-03-28 00:00:00 115 [lb_av[facility] Di[facility] 2021-10-11 00:00:00 60 mm[Hg] [facility] Height 2021-10-11 00:00:00 59 [in_i] [facility] BMI (Body Mass Index) 2021-10-11 00:00:00 26.3 kg/m2 [facility] BP Systolic 2021-10-11 00:00:00 89 mm[Hg] [facility] Body Weight 2021-10-11 00:00:00 130 [lb_av] [facility] Systolic blood pressure 2021-09-27 14:48:37 157 mm[Hg] [facility] Diastolic blood pressure 2021-09-27 14:48:37 88 mm[Hg] [facility] Heart rate 2021-09-27 14:48:37 87 /min [facility] Respiratory rate 2021-09-27 14:48:37 18 /min [facility] Oxygen saturation in Arterial blood by Pulse oximetry 2021-09-27 14:48:37 98 /min [facility] Body temperature 2021-09-27 04:25:[address] [facility] Body height 2021-09-27 03:49:00 149.9 cm [facility] Body weight 2021-09-27 03:49:00 54.432 kg [facility] BMI 2021-09-27 03:49:00 24.24 kg/m2 [facility] BP Diastolic 2021-06-13 00:00:00 79 mm[Hg] [facility] [facility] Height 2021-06-13 00:00:00 59 [in_i] [facility] BMI (Body Mass Index) 2021-06-13 00:00:00 25.6 kg/m2 [facility] ly Practice BP Systolic 2021-06-13 00:00:00 141 mm[Hg] [facility] Body Weight 2021-06-13 00:00:00 126.8 [lb_av] [facility] Diastolic 2021-03-22 00:00:00 82 mm[Hg] [facility] Height 2021-03-22 00:00:00 59 [in_i] [facility] BMI (Body Mass Index) 2021-03-22 00:00:00 24 kg/m2 [facility] BP Systolic 2021-03-22 00:00:00 120 mm[Hg] [facility] Body Weight 2021-03-22 00:00:00 119 [lb_av] [facility] BP Systolic 2024-05-25 13:26:00 142 mm[Hg] Step hen [facility] BP Diastolic 2024-05-25 13:26:00 86 mm[Hg] Tyson phen F [facility] Weight Measured 2024-05-25 13:26:00 124.00 pounds Jones F [facility] Height Measured 2024-05-25 13:26:00 60.00 inches Jones F [facility] Body Temperature 2024-05-25 13:26:00 98.30 degrees Jones F [facility] Heart Rate 2024-05-25 13:26:00 83.00 /min Elizabeth en F [facility] Respiratory Rate 2024-05-25 13:26:00 20.00 /min Jones F [facility] BP Systolic 2024-05-25 10:56:00 142 mm[Hg] Step hen F [facility] BP Diastolic 2024-05-25 10:56:00 86 mm[Hg] Tyson phen [facility] Weight Measured 2024-05-25 10:56:00 124.00 pounds Jones F [facility] Height Measured 2024-05-25 10:56:00 60.00 inches Jones F [facility] Body Temperature 2024-05-25 10:56:00 98.30 degrees Jones F [facility] Heart Rate 2024-05-25 10:56:00 83.00 /min Elizabeth en F [facility] Respiratory Rate 2024-05-25 10:56:00 20.00 /min Jones F [facility] BP Systolic 2024-05-19 15:57:00 132 mm[Hg] Step hen F [facility] BP Diastolic 2024-05-19 15:57:00 88 mm[Hg] Tyson phen [facility] Weight Measured 2024-05-19 15:57:00 125.00 pounds Jones F [facility] Height Measured 2024-05-19 15:57:00 60.00 inches Jones F [facility] Body Temperature 2024-05-19 15:57:00 97.90 degrees Jones F Inocente Heart Rate 2024-05-19 15:57:00 77.00 /min Elizabeth en F Inocente Respiratory Rate 2024-05-19 15:57:00 20.00 /min Jones Brower Heart Rate 2024-05-10 15:18:00 90.00 /min Elizabeth en Pepe Brower Respiratory Rate 2024-05-10 15:18:00 20.00 /min Jones Brower BP Systolic 2024-05-10 15:18:00 108 mm[Hg] Reggie hen Pepe Brower BP Diastolic 2024-05-10 15:18:00 74 mm[Hg] Tyson Brower Weight Measured 2024-05-10 15:18:00 133.00 pounds Jones Brower Height Measured 2024-05-10 15:18:00 60.00 inches Jones Brower Body Temperature 2024-05-10 15:18:00 98.00 degrees Jones Brower Systolic blood pressure 2023-09-10 14:07:00 150 mm[Hg] [facility] Diastolic blood pressure 2023-09-10 14:07:00 83 mm[Hg] [facility] Heart rate 2023-09-10 14:06:00 65 /min Unive [facility] Body height 2023-09-10 14:06:00 149.9 cm [facility] Body weight 2023-09-10 14:06:00 53.842 kg [facility] BMI 2023-09-10 14:06:00 23.97 kg/m2 [facility] Oxygen saturation in Arterial blood by Pulse oximetry 2023-09-10 14:06:00 98 /min [facility] Body temperature 2023-09-10 01:22:00 36.28 Fauzia [facility] Respiratory rate 2023-09-10 01:22:00 17 /min [facility] Procedures Procedure Date / Time Performed Performing Clinician Source URINE CULTURE 2024-02-27 20:53:00 Magdalena Wsie [facility] POCT URINALYSIS 2024-02-27 00:00:00 Magdalena Wise [facility] POCT URINALYSIS 2024-01-09 21:46:00 [facility] AB, IGG 2024-01-09 21:02:00 Lynsey Dangelo [facility] TRIIODOTHYRONINE 2024-01-09 21:02:00 Martha Dangelo [facility] COMP. METABOLIC PANEL (34689) 2024-01-09 21:02:00 Martha Dangelo [facility] ANTI-NUCLEAR ANTIBODY SCREEN 2024-01-09 21:02:00 Martha Dangelo [facility] HEPATITIS B SURFACE ANTIBODY 2024-01-09 21:02:00 Martha Dangelo [facility] HEPATITIS B SURFACE ANTIGEN 2024-01-09 21:02:00 Martha Dangelo [facility] HCV ANTIBODY 2024-01-09 21:02:00 Martha Dangelo [facility] HAV ANTIBODY (IGG AND IGM) 2024-01-09 21:02:00 Martha Dangelo [facility] ANTI-NUCLEAR ANTIBODY TITER 2024-01-09 21:02:00 Martha Dangelo [facility] ANTI-NUCLEAR ANTIBODY-PATHOLOGIST INTERPRETATION 2024-01-09 21:02:00 Martha Dangelo [facility] RABIES VACCINE, IM 2023-09-17 01:00:58 Doctor Un assigned, [place] [facility] MICROALBUMIN URINE 2023-09-10 14:57:00 Martha Dangelo [facility] THYROID STIMULATING HORMONE 2023-09-10 14:55:00 Martha Dangelo [facility] COMP. METABOLIC PANEL ([id number]) 2023-09-10 14:55:00 Martha Dangelo [facility] LIPID PANEL ([id number])(TOTAL CHOLESTEROL, TRIGLYCERIDES, HDL) 2023-09-10 14:55:00 Martha Dangelo [facility] CBC WITH DIFF 2023-09-10 14:55:00 Martha Dangelo [facility] COMP. METABOLIC PANEL ([id number]) 2023-09-10 14:55:00 Martha Dangelo [facility] GLYCOSYLATED HEMOGLOBIN (A1C) 2023-09-10 14:55:00 Martha Dangelo [facility] LIPID PANEL ([id number])(TOTAL CHOLESTEROL, TRIGLYCERIDES, HDL) 2023-09-10 14:55:00 Martha Dangelo [facility] THYROID STIMULATING HORMONE 2023-09-10 14:55:00 Martha Dangelo [facility] FREE T4 2023-09-10 14:55:00 Martha Dangelo [facility] RABIES VACCINE, IM 2023-09-10 01:25:48 Doctor Un assigned, [place] [facility] RABIES VACCINE, 2023-09-10 01:25:48 Doctor Un assigned, [place] [facility] RABIES VACCINE, 2023-09-06 00:50:30 Madeline Simons [facility] RABIES VACCINE, IM 2023-09-06 00:50:30 Madeline Simons [facility] XR RIBS 3 VW LEFT 2023-08-26 01:03:20 See Min [facility] XR RIBS 3 VW LEFT 2023-08-26 01:03:20 See Min [facility] XR HAND 3+ VW RIGHT 2023-08-26 01:03:00 Sade Min [facility] XR HAND 3+ VW RIGHT 2023-08-26 01:03:00 Sade Min [facility] CT ABDOMEN PELVIS WO CONTRAST 2023-06-21 20:34:50 Mikayla Florez [facility] REFERRAL- REQUEST/RESPONSE 2023-06-18 21:13:52 D octor Unassigned, [place] [facility] REFERRAL- REQUEST/RESPONSE 2023-06-18 21:13:52 D octor Unassigned, [place] [facility] REFERRAL- REQUEST/RESPONSE 2023-06-18 20:59:23 D octor Unassigned, [place] [facility] REFERRAL- REQUEST/RESPONSE 2023-06-18 20:59:23 D octor Unassigned, [place] [facility] FL TIME OR (NON-REPORTABLE) 2023-06-12 23:10:00 Carlos Gomes [facility] URINE CULTURE 2023-06-12 22:38:00 Carlos Gomes [facility] INTUBATION 2023-06-12 21:52:00 Jenaro Padilla [facility] URETEROSCOPIC STONE MANIPULATION 2023-06-12 21:35[facility]00 [facility] 2023-06-12 21:35:00 [facility] URETEROSCOPIC STONE MANIPULATION 2023-06-12 21:35:00 [facility] URETEROSCOPIC STONE MANIPULATION 2023-06-12 21:35:00 [facility] URETEROSCOPIC STONE MANIPULATION 2023-06-12 21:35:00 [facility] URETEROSCOPIC STONE MANIPULATION 2023-06-12 21:35:00 [facility] URETEROSCOPIC STONE MANIPULATION 2023-06-12 21:35:00 [facility] [id number] [place] CYSTO/URETERO W/LITHOTRIPSY &INDWELL STENT INSRT 2023-06-12 21:35:00 Rosey [facility] [address] [place] CYSTO W/URETEROSCOPY W/RMVL/MANJ STONES 2023-06-12 21:35:00 [facility] [address] [place] CYSTO W/URETEROSCOPY W/LITHOTRIPSY 2023-06-12 21:35:00 [facility] [address] [place] CYSTO W/SIMPLE REMOVAL STONE & STENT 2023-06-12 21:35:00 Rosey [facility] [address] - [place] CYSTO W/COMPLEX REMOVAL STONE & STENT 2023-06-12 21:35[facility] [address] [place] [facility]ST[place] W/INSERT URETERAL STENT 2023-06-12 21:35:00 [facility] UROGRAPHY RETROGRADE WITH/WO KUB 2023-06-12 21:35:00 [facility]OM[facility]) 2023-06-12 18:33:00 [facility] PO[facility]SE ([facility]OMATED) 2023-06-12 18:33:00 Rosey [facility] POCT GLUCOSE (AUTOMATED) 2023-06-12 18:33:00 Rosey [facility] URINALYSIS 2023-06-05 01:27:00 Mark [facility] COMP. METABOLIC PANEL ([id number]) 2023-06-05 00:42:00 Mark [facility] CBC WITH DIFF 2023-06-05 00:42:00 Mark [facility] CONSENT/REFUSAL FOR DIAGNOSIS AND TREATMENT 2023-06-04 22:10:48 Doctor Unassigned, [place] [facility] POCT GLUCOSE (AUTOMATED) 2023-06-03 17:25:00 Ra damon Sanchez [facility] POCT GLUCOSE (AUTOMATED) 2023-06-03 17:25:00 Ra damon Sanchez [facility] POCT GLUCOSE (AUTOMATED) 2023-06-03 12:57:00 Ra damon Sanchez [facility] POCT GLUCOSE (AUTOMATED) 2023-06-03 12:57:00 Ra damon Sanchez [facility] PHOSPHORUS 2023-06-03 09:29:00 Calvin Nova [facility] MAGNESIUM 2023-06-03 09:29:00 Avtar [facility] BASIC METABOLIC PANEL (NA, K, CL, CO2, GLUCOSE, BUN, CREATININE, CA) 2023-06-03 09:29:00 [facility] 2023-06-03 09:29:00 Calvin Nova [facility] MAGNESIUM 2023-06-03 09:29:00 Avtar [facility] BASIC METABOLIC PANEL (NA, K, CL, CO2, GLUCOSE, BUN, CREATININE, CA) 2023-06-03 09:29:00 Avtar [facility] CBC WITH DIFF 2023-06-03 08:12:00 Avtar [facility] CBC WITH DIFF 2023-06-03 08:12:00 Calvin Nova [facility] POCT GLUCOSE (AUTOMATED) 2023-06-03 08:11:00 Ra Daniel [facility] POCT GLUCOSE (AUTOMATED) 2023-06-03 08:11:00 Ra Daniel [facility] POCT GLUCOSE (AUTOMATED) 2023-06-03 05:03:00 Ra Daniel [facility] POCT GLUCOSE (AUTOMATED) 2023-06-03 05:03:00 Ra Daniel [facility] POCT GLUCOSE (AUTOMATED) 2023-06-03 01:49:00 Ra Daniel [facility] POCT GLUCOSE (AUTOMATED) 2023-06-03 01:49:00 Ra Daniel [facility] POCT GLUCOSE (AUTOMATED) 2023-06-02 21:36:00 Ra Daniel [facility] POCT GLUCOSE (AUTOMATED) 2023-06-02 21:36:00 Ra Daniel [facility] FL TIME OR (NON-REPORTABLE) 2023-06-02 18:10:56 Margaret Tena [facility] [place] TIME OR (NON-REPORTABLE) 2023-06-02 18:10:56 Margaret Tena [facility] URINE CULTURE 2023-06-02 18:02:00 [facility]23-06-02 18:02:00 [facility] WITH INSERTION STENT URETER 2023-06-02 17:18:00 [facility] 2023-06-02 17:18:00 [facility] INSERTION STENT URETER 2023-06-02 17:18:00 Rosey [facility] RETROGRADE PYELOGRAM 2023-06-02 17:18:00 Magdiel Gomes [facility] URINALYSIS 2023-06-02 16:11:00 Margaret Tena [facility] URINALYSIS 2023-06-02 16:11:00 Margaret Tena [facility] PHOSPHORUS 2023-06-02 09:52:00 Avtar Calvin [facility] MAGNESIUM 2023-06-02 09:52:00 Avtar [facility] THYROID STIMULATING HORMONE 2023-06-02 09:52:00 Avtar [facility] BASIC METABOLIC PANEL (NA, K, CL, CO2, GLUCOSE, BUN, CREATININE, CA) 2023-06-02 09:52:00 [facility] LIPID PANEL ([id number])(TOTAL CHOLESTEROL, TRIGLYCERIDES, HDL) 2023-06-02 09:52:00 Atvar [facility] CBC WITH DIFF 2023-06-02 09:52:00 [facility] GLYCOSYLATED HEMOGLOBIN (A1C) 2023-06-02 09:52:00 Avtar [facility] PHOSPHORUS 2023-06-02 09:52:00 Avtar [facility] MAGNESIUM 2023-06-02 09:52:00 Avtar [facility] THYROID STIMULATING HORMONE 2023-06-02 09:52:00 [facility] BASIC METABOLIC PANEL (NA, K, CL, CO2, GLUCOSE, BUN, CREATININE, CA) 2023-06-02 09:52:00 Avtar [facility] LIPID PANEL ([id number])(TOTAL CHOLESTEROL, TRIGLYCERIDES, HDL) 2023-06-02 09:52:00 Avtar [facility] CBC WITH DIFF 2023-06-02 09:52:00 [facility] GLYCOSYLATED HEMOGLOBIN (A1C) 2023-06-02 09:52:00 Avtar [facility] POCT GLUCOSE (AUTOMATED) 2023-06-02 01:57:00 [facility] PO[facility] GLUCOSE (AUTOMATED) 2023-06-02 01:57:00 Avtar [facility] BLOOD CULTURE SCREEN 2023-06-01 22:49:00 Ger Nova am [facility] BLOOD CULTURE SCREEN 2023-06-01 22:49:00 Ger Nova am [facility] POCT GLUCOSE(AGE >30DAYS) 2023-06-01 22:27:00 Boboarcadio [facility] POCT GLUCOSE(AGE >30DAYS) 2023-06-01 22:27:00 Calvin Nova [facility] POCT GLUCOSE (AUTOMATED) 2023-06-01 22:26:00 Avtar [facility] POCT GLUCOSE (AUTOMATED) 2023-06-01 22:26:00 Avtar [facility] BLOOD CULTURE SCREEN 2023-06-01 22:06:00 Ger Nova am [facility] BLOOD CULTURE SCREEN 2023-06-01 22:06:00 Ger Nova am [facility] XR CHEST 2 VW 2023-06-01 17:34:00 Rc Peng [facility] XR CHEST 2 VW 2023-06-01 17:34:00 Rc Peng [facility] CT ABDOMEN PELVIS WO CONTRAST 2023-06-01 17:23:00 Domenic Rc [facility] CT ABDOMEN PELVIS WO CONTRAST 2023-06-01 17:23:00 Rc Peng [facility] LIPASE 2023-06-01 16:31:00 Rc Peng [facility] COMP. METABOLIC PANEL ([id number]) 2023-06-01 16:31:00 Rc Peng [facility] CBC WITH DIFF 2023-06-01 16:31:00 Rc Peng [facility] URINALYSIS 2023-06-01 16:31:00 Rc Peng [facility] URINE CULTURE 2023-06-01 16:31:00 Rc Peng [facility] EXTRA TUBE URINE CULTURE 2023-06-01 16:31:00 Raf Peng [facility] LIPASE 2023-06-01 16:31:00 Rc Peng [facility] COMP. METABOLIC PANEL ([id number]) 2023-06-01 16:31:00 Rc Peng [facility] CBC WITH DIFF 2023-06-01 16:31:00 Rc Peng [facility] URINALYSIS 2023-06-01 16:31:00 Rc Peng [facility] URINE CULTURE 2023-06-01 16:31:00 Rc Peng [facility] EXTRA TUBE URINE CULTURE 2023-06-01 16:31:00 Raf Peng [facility] CONSENT/REFUSAL FOR DIAGNOSIS AND TREATMENT 2023-06-01 16:13:14 Doctor Unassigned, [place] [facility] CONSENT/REFUSAL FOR DIAGNOSIS AND TREATMENT 2023-06-01 16:13:14 Doctor Unassigned, [place] [facility] MAMMO, screening, digital, bilateral 2023-01-23 00:00:00 [facility] MAMMO, screening, tomosynthesis, bilateral, w/ CAD 2022-05-30 00:00:00 [facility] MEDICATION CORRESPONDENCE 2021-10-26 05:01:00 Do ctor Unassigned, [place] [facility] EKG-12 LEAD 2021-09-27 11:30:18 Jayden Knight [facility] ETHANOL 2021-09-27 09:11:00 Jayden Knight [facility] CBC WITH DIFF 2021-09-27 06:19:00 Jayden Knight [facility] COVID-19 (ID NOW RAPID TESTING) 2021-09-27 06:19:00 Jayden Knight [facility] CT ABDOMEN PELVIS W CONTRAST 2021-09-27 05:55:00 Jayden Knight [facility] CREATINE KINASE 2021-09-27 04:36:00 Jayden Knight [facility] TROPONIN I 2021-09-27 04:36:00 Jayden Knight [facility] THYROID STIMULATING HORMONE 2021-09-27 04:36:00 Jayden Knight [facility] COMP. METABOLIC PANEL ([id number]) 2021-09-27 04:36:00 Jayden Knight [facility] SALICYLATE 2021-09-27 04:36:00 Jayden Knight [facility] ETHANOL 2021-09-27 04:36:00 Jayden Knight [facility] XR CHEST 1 VW 2021-09-27 04:25:00 [facility] 2021-09-27 04:18:00 Jayden Knight [facility] URINE DRUG (IMMUNOASSAY) - COMPREHENSIVE DRUG SCREEN W/O REFLEX 2021-09-27 04:18:00 Jayden Knight [facility] ASSIGNMENT OF BENEFITS 2021-09-27 03:30:08 Docto r Unassigned, [place] [facility] CONSENT/REFUSAL FOR DIAGNOSIS AND TREATMENT 2021-09-27 03:29:46 Doctor Unassigned, [place] [facility] X-RAY OF FOOT 3+ VIEW 2021-06-13 00:00:00 [facility] COLONOSCOPY (ENDO) 2020-12-06 13:34:50 Bob Min [facility] CT LUNG CANCER SCREENING 2020-12-04 20:57:13 Pako Bob [facility] BI SCREENING TOMOSYNTHESIS BILATERAL 2020-12-04 20:40:46 Bob Min [facility] HCV ANTIBODY 2013-09-07 15:00:00 Glenny Arreola [facility] Hysterectomy (Total) [facility] Colon Surgery [facility] Cholecystectomy [facility] Plan of Care Planned Activity Planned Date Details Comments Source Diagnostic Test Pending 2023-01-23 00:00:00 hemoglobin A1C, fingerstick [code = hemoglobin A1C, fingerstick] [facility] Diagnostic Test Pending 2023-01-23 00:00:00 CMP, serum or plasma [code = CMP, serum or plasma] [facility] Diagnostic Test Pending 2023-01-23 00:00:00 CBC w/ auto diff [code = CBC w/ auto diff] [facility] Diagnostic Test Pending 2023-01-23 00:00:00 lipid panel, serum [code = lipid panel, serum] [facility] Diagnostic Test Pending 2023-01-23 00:00:00 vitamin D, 25-hydroxy, total, serum [code = vitamin D, 25-hydroxy, total, serum] [facility] Practice Encounters Start Date/Time End Date/Time Encounter Type Admission Type Attending Clinicians Care Facility Care Department Encounter ID Source 2023-06-19 13:43:36 Outpatient MIKAYLA MARIA [facility] SUU [id number] [facility] 2023-05-27 12:30:00 Inpatient Cristian Toure [facility] [id number] [facility] 2021-01-15 20:17:20 Emergency [facility] [id number] [facility] 2021-01-15 20:08:02 Emergency [facility] [id number] [facility] 2024-06-08 16:55:14 2024-06-08 16:55:14 Outpatient [facility] [id number] [id number] Jones Brower 2024-05-25 10:40:10 2024-05-25 10:40:10 Outpatient [facility] [id number] [id number] Jones Brower 2024-05-25 00:00:00 2024-05-25 00:00:00 Outpatient Visit [facility] [id number] Jones Brower 2024-05-19 00:00:00 2024-05-19 00:00:00 Outpatient Visit [facility] [id number] Jones Brower 2024-05-13 00:00:00 2024-05-13 07:59:22 Nicolette Jones [facility] [id number] 350.1.13.10 4.2.7.2.686 [id number] [facility] 2024-05-11 08:13:57 2024-05-11 08:13:57 Outpatient SFA SFA [id number] Jones Brower 2024-05-10 15:35:58 2024-05-10 15:35:58 Outpatient SFA [id number] [id number] Jones Brower 2024-05-10 00:00:00 2024-05-10 00:00:00 Outpatient Visit [facility] [id number] Jones Brower 2016-05-29 00:00:00 2024-05-01 03:54:45 Orders Only Doctor Unassigned, [place] Doctor Unassigned, [place] [facility] 1.2.840.114 350.1.13.10 4.2.7.2.686 [id number] [facility] 2016-05-29 00:00:00 2024-05-01 03:54:44 Orders Only Doctor Unassigned, [place] Doctor Unassigned, [place] [facility] [id number] 350.1.13.10 4.2.7.2.686 [id number] [facility] 2023-06-18 00:00:00 2024-05-01 02:28:19 Orders Only Doctor Unassigned, [place] Doctor Unassigned, [place] [facility] 1.2.840.114 350.1.13.10 4.2.7.2.686 [id number] [facility] 2023-06-18 00:00:00 2024-05-01 02:28:17 Orders Only Doctor Unassigned, [place] Doctor Unassigned, [place] [facility] 1.2.840.114 350.1.13.10 4.2.7.2.686 [id number] [facility] 2024-04-09 16:00:00 2024-04-09 16:00:00 Outpatient SOLO AGEE [facility] [id number] [facility] 2024-04-02 00:00:00 2024-04-02 00:00:00 Outpatient NICOLETTE ELIAS [facility] [id number] [facility] 2024-03-26 13:45:00 2024-03-26 13:45:00 Outpatient R CARLOS GOMES [facility] [id number] [facility] 2024-03-18 00:00:00 2024-03-18 16:25:15 [facility] 1.84.114 350.1.13.10 4.2.7.2.686 [id number] [facility] 2024-03-16 15:00:00 2024-03-16 15:21:15 Outpatient R ROOPA NICOLETTE [facility] [id number] [facility] 2024-03-16 15:00:00 2024-03-16 15:21:15 Office Visit Nicolette Blas [facility] 1.84.114 350.1.13.10 4.2.7.2.686 [id number] [facility] 2024-03-15 00:00:00 2024-03-16 10:11:09 Refill Antolin Martha [facility] 1.114 350.1.13.10 4.2.7.2.686 [id number] [facility] 2024-03-06 00:00:00 2024-03-06 10:21:52 Telephone [facility]olin [facility] 1.84.114 350.1.13.10 4.2.7.2.686 [id number] [facility] 2024-02-27 15:00:00 2024-02-27 15:15:00 Glaze Mixer Visit Lab, Magdalena Holley Lab, Abel Lott [facility] 1.84.114 350.1.13.10 4.2.7.2.686 [id number] [facility] 2024-02-27 14:30:00 2024-02-27 14:42:32 Outpatient R MANUEL WISEN [facility] [id number] [facility] 2024-02-27 14:30:00 2024-02-27 14:42:32 Office Visit Magdalena Wise [facility] 1.284.114 350.1.13.10 4.2.7.2.686 [id number] [facility] 2024-01-14 00:00:00 2024-02-14 18:19:11 Patient Secure Msg Doctor Unassigned, [place] Doctor Unassigned, [place] [facility] 1.84.114 350.1.13.10 4.2.7.2.686 [id number] [facility] 2024-01-15 00:00:00 2024-01-16 07:33:17 Donavongricelda Martha Dangelo [facility] OFF[facility] BU[facility] 1.84.114 350.1.13.10 4.2.7.2.686 [id number] [facility] 2024-01-14 00:00:00 2024-01-14 10:27:31 Patient Secure Msg Doctor Unassigned, [place] Doctor Unassigned, [place] [facility] MED[facility] OFF[facility] BU[facility] 1.284.114 350.1.13.10 4.2.7.2.686 [id number] [facility] 2024-01-13 00:00:00 2024-01-13 16:29:34 Patient Secure Msg Doctor Unassigned, [place] Doctor Unassigned, [place] [facility] MED[facility] OFF[facility] BUILDING 1.284.114 350.1.13.10 4.2.7.2.686 [id number] [facility] 2024-01-09 16:30:00 2024-01-09 17:15:49 Outpatient R KERISachiMARTHA [facility] [id number] [facility] 2024-01-09 16:30:00 2024-01-09 17:15:49 Glaze Mixer Visit Lab, Ang - Db Martha Dangelo Lab, Ang - Db [facility] OFF[facility] BU[facility] 1.840.114 350.1.13.10 4.2.7.2.686 [id number] [facility] 2024-01-09 15:00:00 2024-01-09 15:45:37 Office Visit Antolin Martha [facility] MED[facility] OFFICE BUILD[facility] 1.84.114 350.1.13.10 4.2.7.2.686 [id number] [facility] 2024-01-09 00:00:00 2024-01-09 10:43:14 Telephone Rk Keisha Beckman Keisha [facility] MEDICAL OFFICE BUILDING 1.84.114 350.1.13.10 4.2.7.2.686 [id number] [facility] 2024-01-09 09:20:00 2024-01-09 09:20:00 Outpatient R UNKNOWN, CIARAN [facility] [id number] [facility] 2023-12-12 08:00:00 2023-12-12 08:00:00 Outpatient R DARBY BROTHERS CRAIG [facility] [id number] [facility] 2023-12-09 00:00:00 2023-12-09 10:22:46 Refill Antolin Martha [facility] MED[facility] OFF[facility] BUILD[facility] 1.840.114 350.1.13.10 4.2.7.2.686 [id number] [facility] 2023-11-20 08:00:00 2023-11-20 08:00:00 Outpatient CLARIBEL SARABIA PAMELA [facility] [id number] [facility] 2023-10-16 08:00:00 2023-10-16 08:00:00 Outpatient CLARIBEL SARABIA PAMELA [facility] [id number] [facility] 2023-09-09 00:00:00 2023-10-11 18:20:52 Patient Secure Msg Doctor Unassigned, [place] [facility] 1.2.840.114 350.1.13.10 4.2.7.2.686 [id number] [facility] 2023-09-26 07:30:00 2023-09-26 07:30:00 Outpatient SAMUEL BLOOD [facility] [id number] [facility] 2023-09-06 00:00:00 2023-09-25 08:14:14 Telephone [facility] MEDICAL OFFICE BUILDING 1.2.840.114 350.1.13.10 4.2.7.2.686 [id number] [facility] 2023-09-16 19:40:00 2023-09-16 20:06:27 [facility] [id number] [facility] 2023-09-16 19:40:00 2023-09-16 20:00:00 Nurse Visit Nurse, [facility] Unknown, Attending [facility] MEDICAL OFFICE BUILDING 1.2.840.114 350.1.13.10 4.2.7.2.686 [id number] [facility] 2023-09-16 00:00:00 2023-09-16 10:28:59 Telephone Yuniel Thurman [facility] 1.114 350.1.13.10 4.2.7.2.686 [id number] [facility] 2023-09-15 18:00:00 2023-09-15 18:00:00 Outpatient R UNKNOWN, CIARAN [facility] [id number] [facility] 2023-09-15 00:00:00 2023-09-15 11:50:22 Telephone KeriMartha karimi [facility] MEDICAL OFFICE BUILDING 1.84.114 350.1.13.10 4.2.7.2.686 [id number] [facility] 2023-09-11 09:16:29 2023-09-11 23:59:00 Hospital Encounter KeriMartha karimi [facility] MEDICAL OFFICE BUILDING 1.84.114 350.1.13.10 4.2.7.2.686 [id number] [facility] 2023-09-11 08:15:00 2023-09-11 09:16:34 Outpatient R DARBY BROTHERS CRAIG [facility] [id number] [facility] 2023-09-11 08:15:00 2023-09-11 09:16:34 Office Visit [facility]by [facility] MED[facility] OFF[facility] BUILD[facility] 1.840.114 350.1.13.10 4.2.7.2.686 [id number] [facility] 2023-09-10 09:53:16 2023-09-10 23:59:00 Outpatient R KERIAMRY KarimiIE [facility] [id number] [facility] 2023-09-10 00:00:00 2023-09-10 17:31:14 Telephone KeriMartha karimi [facility] MEDICAL OFFICE BUILDING 1.84.114 350.1.13.10 4.2.7.2.686 [id number] [facility] 2023-09-10 10:00:00 2023-09-10 10:00:00 Glaze Mixer Visit Martha Dangelo, [facility] 1.2.840.1 59172.1.1 3.104.2.7 .3.277359 .8 [id number] [facility] 2023-09-10 09:00:00 2023-09-10 09:47:49 Office Visit Martha Dangelo 1.2.840.1 46376.1.1 3.104.2.7 .3.318122 .8 [id number] [facility] 2023-09-09 20:30:00 2023-09-09 20:32:24 Outpatient R LUDMILA BEVERLY [facility] [id number] [facility] 2023-09-09 20:30:00 2023-09-09 20:32:24 Nurse Visit Ludmila [facility] 1.2.840.1 05626.1.1 3.104.2.7 .3.055870 .8 [id number] [facility] 2023-09-09 00:00:00 2023-09-09 00:00:00 Travel 1.2.840.1 95948.1.1 3.104.2.7 .3.487520 .8 1.2.840.114 350.1.13.10 4.2.7.3.698 084.8 [id number] [facility] 2023-09-08 18:00:00 2023-09-08 18:00:00 Outpatient R UNKNOWN, ATTENDING [facility] [id number] [facility] 2023-09-06 00:00:00 2023-09-06 18:29:42 Telephone Tae Baldwin 1.2.840.1 55354.1.1 3.104.2.7 .3.906283 .8 [id number] [facility] 2023-08-01 00:00:00 2023-09-06 18:22:56 Patient Secure Yuniel Aponte 1.2.840.1 54227.1.1 3.104.2.7 .3.280627 .8 [id number] [facility] 2023-09-05 19:20:00 2023-09-05 19:31:50 Outpatient R MADELINE SIMONS [facility] [id number] [facility] 2023-09-05 19:20:00 2023-09-05 19:31:50 Urgent Care Unknown, Attending Madeline Simons 1.2.840.1 05766.1.1 3.104.2.7 .3.272695 .8 [id number] [facility] 2023-09-04 18:00:00 2023-09-04 18:00:00 Outpatient R UNKNOWN, ATTENDING [facility] [id number] [facility] 2023-09-04 00:00:00 2023-09-04 00:00:00 Travel 1.2.840.1 59185.1.1 3.104.2.7 .3.163604 .8 1.2.840.114 350.1.13.10 4.2.7.3.698 084.8 [id number] [facility] 2023-09-03 00:00:00 2023-09-03 13:59:38 Telephone Nurse, [facility] 1.2.840.1 11320.1.1 3.104.2.7 .3.821766 .8 [id number] [facility] 2023-09-02 19:31:00 2023-09-02 20:45:00 Emergency X JOSE GLEASON [facility] [id number] [facility] 2023-09-02 19:31:00 2023-09-02 20:45:00 Emergency Jose Gleason 1.2.840.1 62167.1.1 3.104.2.7 .3.067468 .8 [id number] [facility] 2023-09-02 00:00:00 2023-09-02 00:00:00 Travel 1.2.840.1 08328.1.1 3.104.2.7 .3.570294 .8 1.2.840.114 350.1.13.10 4.2.7.3.698 084.8 [id number] [facility] 2023-08-29 00:00:00 2023-08-29 15:49:37 Telephone See Min 1.2.840.1 77039.1.1 3.104.2.7 .3.400264 .8 [id number] [facility] 2023-08-25 19:45:19 2023-08-25 23:59:00 Hospital Encounter See Min 1.2.840.1 15753.1.1 3.104.2.7 .3.491703 .8 [id number] [facility] 2023-08-25 19:45:18 2023-08-25 23:59:00 Hospital Encounter See Min 1.2.840.1 20771.1.1 3.104.2.7 .3.225555 .8 [id number] [facility] 2023-08-25 18:20:00 2023-08-25 19:57:17 Outpatient R SEE MIN [facility] [id number] [facility] 2023-08-25 18:20:00 2023-08-25 19:57:17 Urgent Care Unknown, Attending See Min 1.2.840.1 01970.1.1 3.104.2.7 .3.383353 .8 [id number] [facility] 2023-08-25 00:00:00 2023-08-25 00:00:00 Travel 1.2.840.1 67760.1.1 3.104.2.7 .3.366763 .8 1.2.840.114 350.1.13.10 4.2.7.3.698 084.8 [id number] [facility] 2023-08-09 16:59:00 2023-08-09 20:10:00 Emergency E YUNIEL CALDERON MHSE MHSE [id number] [facility] 2023-08-05 18:46:00 2023-08-05 19:35:00 Emergency EM Parker Benitez HCACL PERS [id number] 27 [facility] 2023-08-04 18:49:00 2023-08-04 22:15:00 Emergency EM EDDOC, BERNICE HCACL AERS [id number] 18 [facility] 2023-07-31 00:00:00 2023-08-01 16:16:48 Telephone Yuniel Thurman 1..840.1 79930.1.1 3.104.2.7 .3.487645 .8 [id number] [facility] 2023-06-19 00:00:00 2023-07-26 18:13:47 Patient Secure Msg Doctor Unassigned, [place] 1.2.840.1 92820.1.1 3.104.2.7 .3.412389 .8 [id number] [facility] 2023-07-14 15:00:00 2023-07-14 15:00:00 Outpatient R CARLOS GOMES [facility] [id number] [facility] 2023-06-11 00:00:00 2023-07-10 13:55:42 Patient Secure Msg Carlos Gomes 1.2.840.1 21863.1.1 3.104.2.7 .3.997929 .8 [id number] [facility] 2023-07-08 13:30:00 2023-07-08 13:30:00 Outpatient MIKAYLA MARIA [facility] [id number] [facility] 2023-07-07 00:00:00 2023-07-07 13:05:16 Telephone Mikayla Florez 1.2.840.1 89158.1.1 3.104.2.7 .3.025269 .8 [id number] [facility] 2023-06-13 00:00:00 2023-06-29 11:19:28 Telephone JunevanitaCarlos 1.2.840.1 98902.1.1 3.104.2.7 .3.829134 .8 [id number] [facility] 2023-06-25 00:00:00 2023-06-26 11:10:24 Telephone Mikayla Florez 1.2.840.1 38095.1.1 3.104.2.7 .3.889349 .8 [id number] [facility] 2023-06-21 15:01:36 2023-06-21 23:59:00 Outpatient R MIKAYLA FLOREZ [facility] [id number] [facility] 2023-06-21 15:01:36 2023-06-21 23:59:00 Hospital Encounter Mikayla Florez 1.2.840.1 00145.1.1 3.104.2.7 .3.244172 .8 [id number] [facility] 2023-06-20 00:00:00 2023-06-20 15:48:13 Telephone Mikayla Florez 1.2.840.1 70317.1.1 3.104.2.7 .3.903281 .8 [id number] [facility] 2023-06-19 23:59:59 2023-06-19 23:59:59 Anesthesia Event Caitlin Cuevas 1.2.840.1 81307.1.1 3.104.2.7 .3.586977 .8 [id number] [facility] 2023-06-19 00:00:00 2023-06-19 16:46:54 Telephone Mikayla Florez 1.2.840.1 43307.1.1 3.104.2.7 .3.760865 .8 [id number] [facility] 2023-06-19 14:15:00 2023-06-19 15:38:41 Office Visit Yuniel Thurman 1.2.840.1 73103.1.1 3.104.2.7 .3.898518 .8 [id number] [facility] 2023-06-19 14:15:00 2023-06-19 14:15:00 Outpatient YUNIEL BANEGAS [facility] [id number] [facility] 2023-06-19 00:00:00 2023-06-19 00:00:00 Outpatient Maria Fernanda TAVERAS_ VFP VFP [id number] [facility] 2023-06-19 00:00:00 2023-06-19 00:00:00 Travel 1.2.840.1 65174.1.1 3.104.2.7 .3.695256 .8 1.2.840.114 350.1.13.10 4.2.7.3.698 084.8 [id number] [facility] 2023-06-18 16:15:00 2023-06-18 16:45:00 Office Visit Mikayla Florez 1.2.840.1 26272.1.1 3.104.2.7 .3.550596 .8 [id number] [facility] 2023-06-18 16:15:00 2023-06-18 16:15:00 Outpatient MIKAYLA MARIA [facility] [id number] [facility] 2023-06-18 15:30:00 2023-06-18 15:30:00 Outpatient NEO VILLANUEVA [facility] [id number] [facility] 2023-06-18 00:00:00 2023-06-18 00:00:00 Travel 1.2.840.1 48678.1.1 3.104.2.7 .3.913795 .8 1.2.840.114 350.1.13.10 4.2.7.3.698 084.8 [id number] [facility] 2023-06-17 00:00:00 2023-06-17 15:26:53 Telephone Carlos Gomes 1.2.840.1 83149.1.1 3.104.2.7 .3.109842 .8 [id number] [facility] 2023-06-13 00:00:00 2023-06-13 18:14:25 Nurse Triage Pia Pitt 1.2.840.1 08932.1.1 3.104.2.7 .3.804475 .8 [id number] [facility] 2023-06-12 13:09:00 2023-06-12 19:49:00 Outpatient R CARLOS GOMES [facility] [id number] [facility] 2023-06-12 13:09:00 2023-06-12 19:49:00 Hospital Encounter Carlos Gomes 1.2.840.1 47008.1.1 3.104.2.7 .3.766032 .8 [id number] [facility] 2023-06-12 00:00:00 2023-06-12 18:49:16 Telephone Carlos Gomes 1.2.840.1 73965.1.1 3.104.2.7 .3.430654 .8 [id number] [facility] 2023-06-12 16:50:00 2023-06-12 18:10:00 Anesthesia Event Jenaro Padilla Demetria 1.2.840.1 68395.1.1 3.104.2.7 .3.623732 .8 [id number] [facility] 2023-06-12 13:53:00 2023-06-12 15:36:00 Surgery Carlos Gomes 1.0.1 99350.1.1 3.104.2.7 .3.459832 .8 [id number] [facility] 2023-06-09 00:00:00 2023-06-09 00:00:00 Telephone [facility] 1.840.114 350.1.13.10 4.2.7.2.686 [id number] [facility] 2023-06-05 00:00:00 2023-06-05 00:00:00 Patient Secure Msg Doctor Unassigned, [place] [facility] 1.840.114 350.1.13.10 4.2.7.2.686 [id number] [facility] 2023-06-04 17:18:00 2023-06-04 22:33:00 Emergency LUIS PENG [facility] ERT [id number] [facility] 2023-06-04 17:18:00 2023-06-04 22:33:00 Emergency Jase Flores Katherine [facility] 1.840.114 350.1.13.10 4.2.7.2.686 [id number] [facility] 2023-06-04 00:00:00 2023-06-04 00:00:00 Telephone [facility]ARE [place] [facility] 1.840.114 350.1.13.10 4.2.7.2.686 [id number] [facility] 2023-06-04 00:00:00 2023-06-04 00:00:00 Transition of Care Neo Farrell 1.840.114 350.1.13.10 4.2.7.2.686 [id number] [facility] 2023-06-01 11:14:00 2023-06-03 16:45:00 Inpatient X ROBBINJADIELJOSE, [facility] REA [id number] [facility] 2023-06-01 11:14:00 2023-06-03 16:45:00 Hospital Encounter Rc Peng, Calvin Sanchez [facility] ([facility]) 1.2.840.114 350.1.13.10 4.2.7.2.686 [id number] [facility] 2023-06-02 11:45:00 2023-06-02 13:50:00 Surgery [facility] 1.2.840.114 350.1.13.10 4.2.7.2.686 [id number] [facility] 2023-06-02 00:00:00 2023-06-02 00:00:00 Telephone [facility] 1.2.840.114 350.1.13.10 4.2.7.2.686 [id number] [facility] 2023-05-30 02:52:00 2023-05-30 05:02:00 Emergency EM Edwin Mathews [facility] AERS [id number] [facility] 2023-05-22 00:00:00 2023-05-22 00:00:00 Outpatient Sil_ M_HOU_MD VFP VFP [id number] [facility] 2023-05-16 00:00:00 2023-05-16 00:00:00 Outpatient Simpson_C_H OU_MD VFP VFP [id number] [facility] 2023-05-08 00:00:00 2023-05-08 00:00:00 Outpatient Simpson_C_H OU_MD VFP VFP [id number] [facility] 2023-05-02 00:00:00 2023-05-02 00:00:00 Outpatient Simpson_C_H OU_MD VFP VFP [id number] [facility] 2023-05-02 00:00:00 2023-05-02 00:00:00 Nataliya Newby MD: [facility] [address], [place] [address] , Ph. VFP [place] - [facility] - [place] - VM_MOIRA_Leyla Acosta [id number] [facility] 2023-04-11 00:00:00 2023-04-11 00:00:00 Outpatient Simpson_C_H OU_MD VFP VFP [id number] [facility] 2023-04-01 00:00:00 2023-04-01 00:00:00 Outpatient Simpson_C_H OU_MD VFP VFP [id number] [facility] 2023-03-20 07:34:00 2023-03-20 07:34:00 Outpatient Jovana Parnell [facility] FELISA [id number] [facility] 2023-03-06 00:00:00 2023-03-06 00:00:00 Outpatient Simpson_C_H OU_MD VFP VFP [id number] [facility] 2023-03-02 00:00:00 2023-03-02 00:00:00 Outpatient Simpson_C_H OU_MD VFP VFP [id number] [facility] 2023-01-29 00:00:00 2023-01-29 00:00:00 Outpatient Simpson_C_H OU_MD VFP VFP [id number] [facility] 2023-01-29 00:00:00 2023-01-29 00:00:00 Outpatient Simpson_C_H OU_MD VFP VFP [id number] [facility] 2023-01-23 00:00:00 2023-01-23 00:00:00 Outpatient Simpson_C_H OU_MD VFP VFP [id number] [facility] 2023-01-23 00:00:00 2023-01-23 00:00:00 Jovana Weber MD: [address], [address], [place] [address] , Ph. VFP [place] - [facility] - [place] - VM_HOU_NManisha WarnerHermann (ARG) [id number] [facility] 2023-01-20 00:00:00 2023-01-20 00:00:00 Outpatient Simpson_C_H OU_MD VFP VFP [id number] [facility] 2022-12-25 00:00:00 2022-12-25 00:00:00 Outpatient Simpson_C_H OU_MD VFP VFP [id number] [facility] 2022-12-25 00:00:00 2022-12-25 00:00:00 Outpatient Simpson_C_H OU_MD VFP VFP [id number] [facility] 2022-11-25 00:00:00 2022-11-25 00:00:00 Outpatient Simpson_C_H OU_MD VFP VFP [id number] [facility] 2022-11-08 00:00:00 2022-11-08 00:00:00 Outpatient Simpson_C_H OU_MD VFP VFP [id number] [facility] 2022-11-08 00:00:00 2022-11-08 00:00:00 Outpatient Simpson_C_H OU_MD VFP VFP [id number] [facility] 2022-10-04 00:00:00 2022-10-04 00:00:00 Outpatient Simpson_C_H OU_MD VFP VFP [id number] [facility] 2022-10-04 00:00:00 2022-10-04 00:00:00 Outpatient Simpson_C_H OU_MD VFP VFP [id number] [facility] 2022-10-04 00:00:00 2022-10-04 00:00:00 Outpatient Simpson_C_H OU_MD VFP VFP [id number] [facility] 2022-10-04 00:00:00 2022-10-04 00:00:00 Outpatient Simpson_C_H OU_MD VFP VFP [id number] [facility] 2022-10-04 00:00:00 2022-10-04 00:00:00 Outpatient Simpson_C_H OU_MD VFP VFP [id number] [facility] 2022-10-04 00:00:00 2022-10-04 00:00:00 Outpatient Simpson_C_H OU_MD VFP VFP [id number] [facility] 2022-10-04 00:00:00 2022-10-04 00:00:00 Outpatient Simpson_C_H OU_MD VFP VFP [id number] [facility] 2022-10-04 00:00:00 2022-10-04 00:00:00 Outpatient Simpson_C_H OU_MD VFP VFP [id number] [facility] 2022-08-30 00:00:00 2022-08-30 00:00:00 Outpatient Simpson_C VFP VFP [id number] [facility] 2022-08-30 00:00:00 2022-08-30 00:00:00 Outpatient Simpson_C_H OU_MD VFP VFP [id number] [facility] 2022-08-29 00:00:00 2022-08-29 00:00:00 Outpatient Simpson_C VFP VFP [id number] [facility] 2022-08-23 00:00:00 2022-08-23 00:00:00 Outpatient Simpson_C VFP VFP [id number] [facility] 2022-08-07 00:00:00 2022-08-07 00:00:00 Outpatient Simpson_C VFP VFP [id number] [facility] 2022-08-06 00:00:00 2022-08-06 00:00:00 Outpatient Simpson_C VFP VFP [id number] [facility] 2022-07-29 00:00:00 2022-07-29 00:00:00 Outpatient Simpson_C VFP VFP [id number] [facility] 2022-07-29 00:00:00 2022-07-29 00:00:00 Outpatient Simpson_C VFP VFP [id number] [facility] 2022-07-12 00:00:00 2022-07-12 00:00:00 Outpatient Simpson_C VFP VFP [id number] [facility] 2022-06-11 00:00:00 2022-06-11 00:00:00 Outpatient Simpson_C VFP VFP [id number] [facility] 2022-06-10 00:00:00 2022-06-10 00:00:00 Outpatient Simpson_C VFP VFP [id number] [facility] 2022-06-07 00:00:00 2022-06-07 00:00:00 Outpatient Simpson_C VFP VFP [id number] [facility] 2022-05-30 00:00:00 2022-05-30 00:00:00 Outpatient Simpson_C VFP VFP [id number] [facility] 2022-05-30 00:00:00 2022-05-30 00:00:00 Jenaro Ying, FLOOR ASSOCIATE: [address] [place], [place] [address], [address], [place] [address] , Ph. VFP [place] - [facility] - [place] - VM_HOU_N. Benja GOLDSTEIN) [id number] [facility] 2022-05-14 00:00:00 2022-05-14 00:00:00 Outpatient Simpson_C VFP VFP [id number] [facility] 2022-05-14 00:00:00 2022-05-14 00:00:00 Outpatient Simpson_C VFP VFP [id number] [facility] 2022-05-03 00:00:00 2022-05-03 00:00:00 Outpatient Simpson_C VFP VFP [id number] [facility] 2022-04-25 00:00:00 2022-04-25 00:00:00 Outpatient Simpson_C VFP VFP [id number] [facility] 2022-04-25 00:00:00 2022-04-25 00:00:00 Jenaro Ying, FLOOR ASSOCIATE: [address], [address], [place] [address] , Ph. VFP [place] - [facility] - [place] - TRISTAN_ASIF Yousif ([facility]) [id number] [facility] 2022-04-23 00:00:00 2022-04-23 00:00:00 Outpatient Simpson_C VFP VFP [id number] [facility] 2022-04-22 00:00:00 2022-04-22 00:00:00 Outpatient Simpson_C VFP VFP [id number] [facility] 2022-04-04 00:00:00 2022-04-04 00:00:00 Outpatient Simpson_C VFP VFP [id number] [facility] 2022-04-04 00:00:00 2022-04-04 00:00:00 Jenaro Ying, FLOOR ASSOCIATE: [address], [address], [place] [address] , Ph. VFP [place] - [facility] - [place] - VM_ASIF Yousif ([facility]) [id number] [facility] 2022-03-30 00:00:00 2022-03-30 00:00:00 Outpatient Simpson_C VFP VFP [id number] [facility] 2022-03-28 00:00:00 2022-03-28 00:00:00 Outpatient Simpson_C VFP VFP [id number] [facility] 2022-03-28 00:00:00 2022-03-28 00:00:00 Jenaro Ying, FLOOR ASSOCIATE: [address], [address], [place] [address] , Ph. VFP [place] - [facility] - [place] - VM_MOIRA_Jesse Hermann ([facility]) [id number] [facility] 2021-11-28 00:00:00 2021-11-28 00:00:00 Outpatient Simpson_C VFP VFP [id number] [facility] 2021-11-16 00:00:00 2021-11-16 00:00:00 Outpatient Simpson_C VFP VFP [id number] [facility] 2021-10-26 00:00:00 2021-10-26 00:00:00 Orders Only Doctor Unassigned, [place] [facility] [id number] [facility] 2021-10-24 00:00:00 2021-10-24 00:00:00 Outpatient Simpson_C VFP VFP [id number] [facility] 2021-10-20 00:00:00 2021-10-20 00:00:00 Outpatient Simpson_C VFP VFP [id number] [facility] 2021-10-18 00:00:00 2021-10-18 00:00:00 Outpatient Simpson_C VFP VFP [id number] [facility] 2021-10-12 00:00:00 2021-10-12 00:00:00 Outpatient Simpson_C VFP VFP [id number] [facility] 2021-10-11 00:00:00 2021-10-11 00:00:00 Outpatient Simpson_C VFP VFP [id number] [facility] 2021-10-11 00:00:00 2021-10-11 00:00:00 Mary Osullivan, FLOOR ASSOCIATE: [address] [place], [address], [place] [address] , Ph. VFP [place] - [facility] - VM_Haley spragueon (WAG) [id number] [facility] 2021-09-30 00:00:00 2021-09-30 00:00:00 Outpatient Simpson_C VFP VFP [id number] [facility] 2021-09-26 22:51:00 2021-09-27 09:50:00 Emergency X AISHA CHÁVEZ [facility] ERT [id number] [facility] 2021-09-26 22:51:00 2021-09-27 09:50:00 Emergency Jayden Knight Kent [facility] 1.2.840.114 350.1.13.10 4.2.7.2.686 [id number] [facility] 2021-09-09 12:44:00 2021-09-09 12:44:00 Outpatient Simpson_C VFP VFP [id number] [facility] 2021-08-17 02:28:00 2021-08-17 02:28:00 Outpatient Simpson_C VFP VFP [id number] [facility] 2021-08-15 10:00:00 2021-08-15 10:00:00 Outpatient FRANCISCO WANG [facility] [id number] [facility] 2021-08-07 00:00:00 2021-08-07 00:00:00 Telephone Bob Min [facility] 1..840.114 350.1.13.10 4.2.7.2.686 [id number] [facility] 2021-07-21 02:06:00 2021-07-21 02:06:00 Outpatient Simpson_C VFP VFP [id number] [facility] 2021-06-17 05:29:00 2021-06-17 05:29:00 Outpatient Simpson_C VFP VFP [id number] [facility] 2021-06-17 05:29:00 2021-06-17 05:29:00 Outpatient Simpson_C VFP VFP [id number] [facility] 2021-06-16 02:26:00 2021-06-16 02:26:00 Outpatient Simpson_C VFP VFP [id number] [facility] 2021-06-14 05:22:00 2021-06-14 05:22:00 Outpatient Simpson_C VFP VFP [id number] [facility] 2021-06-13 09:29:00 2021-06-13 09:29:00 Outpatient Simpson_C VFP VFP [id number] [facility] 2021-06-13 03:42:00 2021-06-13 03:42:00 Outpatient VFP VFP [id number] [facility] 2021-06-13 00:00:00 2021-06-13 00:00:00 Davy Manley MD: [address] [facility] [place] [address] , Ph. VFP [place] - [facility] - TRISTAN_Haley orozco (WAG) [id number] [facility] 2021-06-10 03:08:00 2021-06-10 03:08:00 Outpatient Simpson_C VFP VFP [id number] [facility] 2021-06-10 03:08:00 2021-06-10 03:08:00 Outpatient Simpson_C VFP VFP [id number] [facility] 2021-06-08 07:13:00 2021-06-08 07:13:00 Outpatient Simpson_C VFP VFP [id number] [facility] 2021-06-06 05:32:00 2021-06-06 05:32:00 Outpatient Simpson_C VFP VFP [id number] [facility] 2021-05-12 03:08:00 2021-05-12 03:08:00 Outpatient Simpson_C VFP VFP [id number] [facility] 2021-05-01 10:30:00 2021-05-01 10:30:00 Outpatient JOSE VILLAVICENCIO [facility] [id number] [facility] 2021-04-23 08:40:00 2021-04-23 08:40:00 Outpatient Jhonathan MINBOB [facility] [id number] [facility] 2021-04-01 04:08:00 2021-04-01 04:08:00 Outpatient Simpson_C VFP VFP [id number] [facility] 2021-04-01 04:08:00 2021-04-01 04:08:00 Outpatient Simpson_C VFP VFP [id number] [facility] 2021-03-29 10:38:00 2021-03-29 10:38:00 Outpatient Simpson_C VFP VFP [id number] [facility] 2021-03-26 03:43:00 2021-03-26 03:43:00 Outpatient Simpson_C VFP VFP [id number] [facility] 2021-03-22 11:26:00 2021-03-22 11:26:00 Outpatient Simpson_C VFP VFP [id number] [facility] 2021-03-22 00:00:00 2021-03-22 00:00:00 Davy Manley MD: [address] [place] [address] , Ph. VFP [place] - [facility] - TRISTAN_Haley orozco (VALDEMAR) [id number] [facility] 2021-03-20 08:21:00 2021-03-20 08:21:00 Outpatient Simpson_C VFP VFP [id number] [facility] 2021-03-19 01:56:00 2021-03-19 01:56:00 Outpatient VFP VFP [id number] [facility] 2021-02-20 09:00:00 2021-02-20 09:00:00 Outpatient JOSE VILLAVICENCIO [facility] [id number] [facility] 2021-01-29 09:20:00 2021-01-29 09:20:00 Outpatient R BOB MIN [facility] [id number] [facility] 2021-01-29 00:00:00 2021-01-29 00:00:00 Telephone Molly Minny [facility] MULTISPEC [facility]TY [facility] 1.840.114 350.1.13.10 4.2.7.2.686 [id number] [facility] 2021-01-29 00:00:00 2021-01-29 00:00:00 Patient Secure Msg Doctor Unassigned, [place] [facility] SPECIALTY [facility] 1.840.114 350.1.13.10 4.2.7.2.686 [id number] [facility] 2021-01-26 13:15:00 2021-01-26 13:15:00 Outpatient R UNKNOWN, ATTENDING [facility] [id number] [facility] 2021-01-26 13:15:00 2021-01-26 13:15:00 Outpatient R UNKNOWN, ATTENDING [facility] [id number] [facility] 2021-01-16 10:12:18 2021-01-16 10:53:24 Office Visit Francisco Gaming [facility] .840.114 350.1.13.10 4.2.7.2.686 [id number] [facility] 2021-01-16 10:00:00 2021-01-16 10:53:24 Outpatient R FRANCISCO GAMING [facility] [id number] [facility] 2021-01-16 10:00:00 2021-01-16 10:00:00 Outpatient R FRANCISCO GAMING [facility] [id number] [facility] 2021-01-16 00:00:00 2021-01-16 00:00:00 Patient Outreach Zahraa Soliz [facility] MULTISPEC [facility]TY [facility] 1.2.840.114 350.1.13.10 4.2.7.2.686 [id number] [facility] 2021-01-16 00:00:00 2021-01-16 00:00:00 Patient Outreach Heydi Zahraa Lisette [facility] MULTISPEC [facility] 1.2.840.114 350.1.13.10 4.2.7.2.686 [id number] [facility] 2020-12-29 09:26:19 2020-12-29 10:17:16 Office Visit Pako Bob [facility] 1.2.840.114 350.1.13.10 4.2.7.2.686 [id number] [facility] 2020-12-29 09:20:00 2020-12-29 09:20:00 Outpatient R MINBOB FRIEDMAN [facility] [id number] [facility] 2020-12-26 00:00:00 2020-12-26 00:00:00 Telephone Pako [facility]ALTY [place] 1.2.840.114 350.1.13.10 4.2.7.2.686 [id number] [facility] 2020-12-21 16:14:57 2020-12-21 16:29:57 Glaze Mixer Visit Vtc-Lab Bob [facility] 1.2.840.114 350.1.13.10 4.2.7.2.686 [id number] [facility] 2020-12-21 08:36:11 2020-12-21 09:33:21 Office Visit Bob [facility] 1.2.840.114 350.1.13.10 4.2.7.2.686 [id number] [facility] 2020-12-21 08:40:00 2020-12-21 08:40:00 Outpatient R BOB MIN [facility] [id number] [facility] 2020-12-20 10:30:00 2020-12-20 10:30:00 Outpatient R [facility] [id number] [facility] 2020-12-20 00:00:00 2020-12-20 00:00:00 Telephone Pako [facility] MULTISPEC [facility]TY [facility]ENTER [facility] 1.840.114 350.1.13.10 4.2.7.2.686 [id number] [facility] 2020-12-18 00:00:00 2020-12-18 00:00:00 Telephone Min, [facility] MULTISPEC [facility]TY [facility] 1.840.114 350.1.13.10 4.2.7.2.686 [id number] [facility] 2020-12-14 00:00:00 2020-12-14 00:00:00 Patient Secure Abdelrahman Dempsey [facility] 1.840.114 350.1.13.10 4.2.7.2.686 [id number] [facility] 2020-12-13 08:47:34 2020-12-13 09:02:34 Glaze Mixer Visit Vtc-Lab Samuel Guzmán [facility] MULTISPEC [facility]TY [facility]ENTER [facility] 1..114 350.1.13.10 4.2.7.2.686 [id number] [facility] 2020-12-13 08:45:00 2020-12-13 08:45:00 Outpatient SAMUEL VALENTE [facility] [id number] [facility] 2020-12-11 00:00:00 2020-12-11 00:00:00 Refill Bob Min [facility] MULTISPEC [facility]TY [facility] 1..114 350.1.13.10 4.2.7.2.686 [id number] 044 [id number] [facility] 2020-12-08 08:25:50 2020-12-08 08:40:50 Office Visit Yuniel Thurman [facility] 1..114 350.1.13.10 4.2.7.2.686 [id number] [facility] 2020-12-08 08:15:00 2020-12-08 08:15:00 Outpatient YUNIEL BANEGAS [facility] [id number] [facility] 2020-12-06 09:45:00 2020-12-06 10:45:00 Surgery Abdelrahman Madden [facility] 1..114 350.1.13.10 4.2.7.2.686 [id number] [facility] 2020-12-06 09:15:00 2020-12-06 09:15:00 Outpatient YUNIEL BANEGAS [facility] [id number] [facility] 2020-12-06 00:00:00 2020-12-06 00:00:00 Telephone Bob Min [facility] MULTISPEC [facility]TY CENTER [facility] 1..114 350.1.13.10 4.2.7.2.686 [id number] [facility] 2020-12-06 00:00:00 2020-12-06 00:00:00 Orders Only Doctor Unassigned, [place] [facility] 1..114 350.1.13.10 4.2.7.2.686 [id number] [facility] 2020-12-04 15:20:00 2020-12-04 23:59:00 Hospital Encounter Bob Min [facility] SPECIAL[facility] 1.2.840.114 350.1.13.10 4.2.7.2.686 [id number] [facility] 2020-12-04 16:01:08 2020-12-04 16:16:08 Laboratory Only Only, Lcc Test Unknown, Attending [facility] SPECIAL[facility] 1.2.840.114 350.1.13.10 4.2.7.2.686 [id number] [facility] 2020-12-04 14:45:00 2020-12-04 15:19:00 Hospital Encounter Min, Bob [facility] SPECIAL[facility] 1.2.840.114 350.1.13.10 4.2.7.2.686 [id number] [facility] 2020-12-04 00:00:00 2020-12-04 00:00:00 Outpatient R PAKO BOB [facility] [id number] [facility] 2020-12-01 11:13:31 2020-12-01 12:40:21 Office Visit Nazanin [facility] MULTISPEC [facility]TY CENTER [facility] 1.2840.114 350.1.13.10 4.2.7.2.686 [id number] [facility] 2020-12-01 11:13:31 2020-12-01 12:40:21 Office Visit Nazanin [facility] MULT[facility]PEC [facility] 1.2840.114 350.1.13.10 4.2.7.2.686 [id number] [facility] 2020-12-01 11:15:00 2020-12-01 11:15:00 Outpatient R NAZANIN [facility] [id number] [facility] 2020-12-01 08:34:32 2020-12-01 09:04:32 Office Visit Francisco Gaming [facility] MULTISPEC [facility]TY CENTER AND [facility] 1.20.114 350.1.13.10 4.2.7.2.686 [id number] [facility] 2020-12-01 08:34:32 2020-12-01 09:04:32 Office Visit Francisco Gaming [facility] MULTISPEC [facility]TY CENTER AND [facility] 1.2840.114 350.1.13.10 4.2.7.2.686 [id number] [facility] 2020-12-01 08:30:00 2020-12-01 08:30:00 Outpatient R FRANCISCO GAMING [facility] [id number] [facility] 2020-12-01 00:00:00 2020-12-01 00:00:00 Orders Only Doctor Unassigned, [place] [facility] 1.20.114 350.1.13.10 4.2.7.2.686 [id number] [facility] 2020-11-29 09:06:46 2020-11-29 09:50:07 Office Visit Bob Min [facility] MULTISPEC [facility]TY CENTER [facility] 1..114 350.1.13.10 4.2.7.2.686 [id number] [id number] [facility] 2020-11-29 09:06:46 2020-11-29 09:50:07 Office Visit Bob Min [facility] MULTISPEC [facility]TY [facility]ENTER [facility] 1..114 350.1.13.10 4.2.7.2.686 [id number] [facility] 2020-11-29 09:00:00 2020-11-29 09:00:00 Outpatient R BOB MIN [facility] [id number] [facility] 2020-11-29 00:00:00 2020-11-29 00:00:00 Telephone Pako Bob [facility] MULTISPEC [facility]TY CENTER [facility] 1.2.840.114 350.1.13.10 4.2.7.2.686 [id number] [facility] 2020-11-28 00:00:00 2020-11-28 00:00:00 [facility] 1.2.840.114 350.1.13.10 4.2.7.2.686 [id number] [facility] 2020-11-28 00:00:00 2020-11-28 00:00:00 [facility] 1.2.840.114 350.1.13.10 4.2.7.2.686 [id number] [facility] 2020-11-28 00:00:00 2020-11-28 00:00:00 Telephone Min [facility] MULTISPEC [facility]ALTY CENTER AND [facility] 1.2.840.114 350.1.13.10 4.2.7.2.686 [id number] [facility] 2020-11-28 00:00:00 2020-11-28 00:00:00 Telephone [facility] MULTISPEC [facility]TY CENTER [facility] 1.2.840.114 350.1.13.10 4.2.7.2.686 [id number] [facility] 2020-11-27 13:12:13 2020-11-27 14:16:37 Office Visit Yuniel Thurman [facility]ty [facility] 1.2.840.114 350.1.13.10 4.2.7.2.686 [id number] [facility] 2020-11-27 13:12:13 2020-11-27 14:16:37 Office Visit Yuniel Thurman [facility] 1..114 350.1.13.10 4.2.7.2.686 [id number] [facility] 2020-11-27 13:00:00 2020-11-27 13:00:00 Outpatient R YUNIEL THURMAN [facility] [id number] [facility] 2020-11-24 00:00:00 2020-11-24 00:00:00 [facility] 1..114 350.1.13.10 4.2.7.2.686 [id number] [facility] 2020-11-24 00:00:00 2020-11-24 00:00:00 Telephone Pako [facility] MULTISPEC [facility]TY CENTER [facility] 1..114 350.1.13.10 4.2.7.2.686 [id number] [facility] 2020-11-23 00:00:00 2020-11-23 00:00:00 Telephone Pako [facility] MULTISPEC [facility]TY CENTER [facility] 1..114 350.1.13.10 4.2.7.2.686 [id number] [facility] 2020-11-23 00:00:00 2020-11-23 00:00:00 Telephone Min [facility] MULTISPEC [facility]TY CENTER [facility] 1..114 350.1.13.10 4.2.7.2.686 [id number] [facility] 2020-11-22 11:21:37 2020-11-22 11:36:37 Glaze Mixer Visit Vtc-Lab Pako [facility] MULTISPEC [facility]TY CENTER [facility] 1.2.840.114 350.1.13.10 4.2.7.2.686 [id number] [facility] 2020-11-22 11:21:37 2020-11-22 11:36:37 Glaze Mixer Visit Vtc-Lab Bob Min [facility] IALTY [facility] 1.2.840.114 350.1.13.10 4.2.7.2.686 [id number] [facility] 2020-11-22 10:27:09 2020-11-22 10:47:09 [facility] 1.2.840.114 350.1.13.10 4.2.7.2.686 [id number] [id number] [facility] 2020-11-22 10:27:09 2020-11-22 10:47:09 Office Visit Pako [facility] 1.2.840.114 350.1.13.10 4.2.7.2.686 [id number] [id number] [facility] 2020-11-22 10:40:00 2020-11-22 10:40:00 Outpatient [facility] [id number] [facility] 2020-11-22 00:00:00 2020-11-22 00:00:00 Orders Only Doctor Unassigned, [place] [facility] 1.2.840.114 350.1.13.10 4.2.7.2.686 [id number] [facility] 2020-11-22 00:00:00 2020-11-22 00:00:00 Orders Only Doctor Unassigned, [place] [facility] 1.2.840.114 350.1.13.10 4.2.7.2.686 [id number] [facility] 2020-11-17 12:22:00 2020-11-17 17:28:00 Emergency [facility] ([facility]) 1.2.840.114 350.1.13.10 4.2.7.2.686 [id number] [facility] 2020-11-17 12:22:00 2020-11-17 17:28:00 Emergency [facility] ([facility]) 1.2.840.114 350.1.13.10 4.2.7.2.686 [id number] [facility] 2020-11-16 21:09:00 2020-11-17 00:08:00 Emergency Julianna [facility]) 1.2.840.114 350.1.13.10 4.2.7.2.686 [id number] [facility] 2020-11-16 21:09:00 2020-11-17 00:08:00 Emergency [facility] ([facility]) 1.2.840.114 350.1.13.10 4.2.7.2.686 [id number] [facility] 2020-11-17 00:00:00 2020-11-17 00:00:00 Nurse Triage [facility] 1.2.840.114 350.1.13.10 4.2.7.2.686 [id number] [facility] 2020-11-17 00:00:00 2020-11-17 00:00:00 Nurse Triage [facility] 1.2.840.114 350.1.13.10 4.2.7.2.686 [id number] [facility] 2020-03-13 09:45:00 2020-03-13 09:45:00 Outpatient GINI REDDING [facility] [id number] [facility] Results Test Description Test Time Test Comments Results Result Co mments Source Jones BrowerCOMPREHENSIVE METABOLIC [id number] 00:00:00* Test Item Value Reference Range Interpretation Comme nts GLUCOSE (test code = 2345-7) 137 mg/dL UREA NITROGEN (BUN) (test code = 3094-0) 22 mg/dL CREATININE (test code = 2160-0) 0.94 mg/dL EGFR (test code = 69755-9) 69 mL/min/1.73m2 BUN/CREATININE RATIO (test code = 3097-3) SEE NOTE: (calc) SODIUM (test code = 2951-2) 140 mmol/L POTASSIUM (test code = 2823-3) 4.1 mmol/L CHLORIDE (test code = 2075-0) 103 mmol/L CARBON DIOXIDE (test code = 8-9) 24 mmol/L CALCIUM (test code = 55969-2) 9.5 mg/dL PROTEIN, TOTAL (test code = 2885-2) 6.8 g/dL ALBUMIN (test code = 1751-7) 4.2 g/dL GLOBULIN (test code = 74078-9) 2.6 g/dL(calc) ALBUMIN/GLOBULIN RATIO (test code = 1759-0) 1.6 (calc) BILIRUBIN, TOTAL (test code = 1975-2) 0.5 mg/dL ALKALINE PHOSPHATASE (test code = 6768-6) 119 U/L AST (test code = 1920-8) 12 U/L ALT (test code = 1742-6) 26 U/L Jones BrowerHEMOGLOBIN [id number] 00:00:00* Test Item Value Reference Range Interpretation Comme owen HEMOGLOBIN A1c (test code = 4548-4) 7.3 %oftotalHgb Jones BrowerLIPID [id number] 00:00:00* Test Item Value Reference Range Interpretation Comme nts CHOLESTEROL, TOTAL (test cod e = 2093-3) 215 mg/dL HDL CHOLESTEROL (test code = 2085-9) 47 mg/dL TRIGLYCERIDES (test code = 2571-8) 97 mg/dL LDL-CHOLESTEROL (test code = 22043-9) 147 mg/dL(calc) CHOL/HDLC RATIO (test code = 9830-1) 4.6 (calc) NON HDL CHOLESTEROL (test code = 72292-9) 168 mg/dL(calc) Jones BrowerHIV 1/2 ANTIGEN/ANTIBODY,FOURTH GENERATION [id number] 00:00:00* Test Item Value Reference Range Interpretation Comme nts HIV AG/AB, 4TH GEN (test cod e = 43626-8) NON-REACTIVE Jones BrowerMICROALBUMIN, RANDOM URINE (W/CREATININE)[id number] 00:00:00* Test Item Value Reference Range Interpretation Comme nts CREATININE, RANDOM URINE (te st code = 2161-8) 87 mg/dL ALBUMIN, URINE (test code = 85486-0) 2.0 mg/dL ALBUMIN/CREATININE RATIO, RA NDOM URINE (test code = 9318-7) 23 mg/gcreat Jones BrowerRHEUMATOID [id number] 00:00:00* Test Item Value Reference Range Interpretation Comme owen RHEUMATOID FACTOR (test code = 34717-3) <10 IU/mL Jones BrowerURIC [id number] 00:00:00* Test Item Value Reference Range Interpretation Comme nts URIC ACID (test code = 3084-1) 4.5 mg/dL Jones BrowerSED RATE BY MODIFIED [id number] 00:00:00* Test Item Value Reference Range Interpretation Comme nts SED RATE BY MODIFIED WESTERG MOLLY (test code = 4537-7) 2 mm/h Jones BrowerCBC (INCLUDES DIFF/PLT)2024-05-12 00:00:00* Test Item Value Reference Range Interpretation Comme nts WHITE BLOOD CELL COUNT (test code = 6690-2) 5.6 Thousand/uL RED BLOOD CELL COUNT (test code = 789-8) 4.51 Million/uL HEMOGLOBIN (test code = 718-7) 14.1 g/dL HEMATOCRIT (test code = 4544-3) 42.5 % MCV (test code = 787-2) 94.2 fL MCH (test code = 785-6) 31.3 pg MCHC (test code = 786-4) 33.2 g/dL RDW (test code = 788-0) 11.8 % PLATELET COUNT (test code = 777-3) 305 Thousand/uL MPV (test code = 776-5) 11.4 fL ABSOLUTE NEUTROPHILS (test code = 751-8) 3024 cells/uL ABSOLUTE BAND NEUTROPHILS (test code = 52195-5) DNR cells/uL ABSOLUTE METAMYELOCYTES (jocelyne t code = 81420-9) DNR cells/uL ABSOLUTE MYELOCYTES (test code = 09328-3) DNR cells/uL ABSOLUTE PROMYELOCYTES (test code = 84906-4) DNR cells/uL ABSOLUTE LYMPHOCYTES (test code = 731-0) 1798 cells/uL ABSOLUTE MONOCYTES (test cod e = 742-7) 582 cells/uL ABSOLUTE EOSINOPHILS (test code = 711-2) 123 cells/uL ABSOLUTE BASOPHILS (test cod e = 704-7) 73 cells/uL ABSOLUTE BLASTS (test code = 07285-8) DNR cells/uL ABSOLUTE NUCLEATED RBC (test code = 21512-6) DNR cells/uL NEUTROPHILS (test code = 770-8) 54 % BAND NEUTROPHILS (test code = 764-1) DNR % METAMYELOCYTES (test code = 740-1) DNR % MYELOCYTES (test code = 749-2) DNR % PROMYELOCYTES (test code = 783-1) DNR % LYMPHOCYTES (test code = 736-9) 32.1 % REACTIVE LYMPHOCYTES (test code = 19763-8) DNR % MONOCYTES (test code = 5905-5) 10.4 % EOSINOPHILS (test code = 713-8) 2.2 % BASOPHILS (test code = 706-2) 1.3 % BLASTS (test code = 709-6) DNR % NUCLEATED RBC (test code = 16724-1) DNR /100WBC COMMENT(S) (test code = 8251-1) DNR Jones F AustinCOMPREHENSIVE METABOLIC [id number] 00:00:00* Test Item Value Reference Range Interpretation Comme nts GLUCOSE (test code = 2345-7) 137 mg/dL UREA NITROGEN (BUN) (test code = 3094-0) 22 mg/dL CREATININE (test code = 2160-0) 0.94 mg/dL EGFR (test code = 86281-6) 69 mL/min/1.73m2 BUN/CREATININE RATIO (test code = 3097-3) SEE NOTE: (calc) SODIUM (test code = 2951-2) 140 mmol/L POTASSIUM (test code = 2823-3) 4.1 mmol/L CHLORIDE (test code = 2075-0) 103 mmol/L CARBON DIOXIDE (test code = 2027-9) 24 mmol/L CALCIUM (test code = 30299-0) 9.5 mg/dL PROTEIN, TOTAL (test code = 2885-2) 6.8 g/dL ALBUMIN (test code = 1751-7) 4.2 g/dL GLOBULIN (test code = 14005-2) 2.6 g/dL(calc) ALBUMIN/GLOBULIN RATIO (test code = 1759-0) 1.6 (calc) BILIRUBIN, TOTAL (test code = 1975-2) 0.5 mg/dL ALKALINE PHOSPHATASE (test code = 6768-6) 119 U/L AST (test code = 1920-8) 12 U/L ALT (test code = 1742-6) 26 U/L Jones BrowerHEMOGLOBIN [id number] 00:00:00* Test Item Value Reference Range Interpretation Comme [facility] HEMOGLOBIN A1c (test code = 4548-4) 7.3 %oftotalHgb Jones BrowerLIPID [id number] 00:00:00* Test Item Value Reference Range Interpretation Comme [facility] CHOLESTEROL, TOTAL (test cod e = 2093-3) 215 mg/dL HDL CHOLESTEROL (test code = 2085-9) 47 mg/dL TRIGLYCERIDES (test code = 2571-8) 97 mg/dL LDL-CHOLESTEROL (test code = 66936-5) 147 mg/dL(calc) CHOL/HDLC RATIO (test code = 9830-1) 4.6 (calc) NON HDL CHOLESTEROL (test code = 06261-7) 168 mg/dL(calc) Jones BrowerHIV 1/2 ANTIGEN/ANTIBODY,FOURTH GENERATION W/[id number] 00:00:00* Test Item Value Reference Range Interpretation Comme [facility] HIV AG/AB, 4TH GEN (test cod e = 62183-4) NON-REACTIVE Jones BrowerMICROALBUMIN, RANDOM URINE (W/CREATININE)2024-05-12 00:00:00* Test Item Value Reference Range Interpretation Comme nts CREATININE, RANDOM URINE (te st code = 2161-8) 87 mg/dL ALBUMIN, URINE (test code = 38469-3) 2.0 mg/dL ALBUMIN/CREATININE RATIO, RA NDOM URINE (test code = 9318-7) 23 mg/gcreat Jones BrowerRHEUMATOID [id number] 00:00:00* Test Item Value Reference Range Interpretation Comme nts RHEUMATOID FACTOR (test code = 45798-9) <10 IU/mL Jones Cantu AustinURIC [id number] 00:00:00* Test Item Value Reference Range Interpretation Comme nts URIC ACID (test code = 3084-1) 4.5 mg/dL Jones Cantu AustinSED RATE BY MODIFIED [id number] 00:00:00* Test Item Value Reference Range Interpretation Comme nts SED RATE BY MODIFIED WESTERG MOLLY (test code = 4537-7) 2 mm/h Jones Cantu AustinPOCT Urinalysis W Specific [id number] 20:07:00* Test Item Value Reference Range Interpretation Comme nts POCT U SP GRAV (test code = 3255) 1.015 mg/dl 1.005-1.025 A POCT PH U (test code = 3254) 5 mg/dl 5-8 POCT U LEUK EST (test code = 3263) + Negative - Negative POCT U NIT (test code = 3262) neg Negative - Negati ve POCT U PROT (test code = 3259) 30 Negative - Negative POCT U GLU (test code = 3256) normal Negative - Negati ve POCT U KETONE (test code = 3258) neg Negative - Negative POCT U UROBILI (test code = 3260) normal 0.2-1 POCT U BILI (test code = 3261) neg Negative - Negative POCT U BLD (test code = 3257) 50 Negative - Negati ve POCT U COLOR (test code = 3266) dark yellow POCT U APPEAR (test code = 3267) cloudy Lab Interpretation (test cod e = 65407-7) Abnormal [facility] HospitalMitochondrial M2 Ab, [id number] 05:24:49* Test Item Value Reference Range Interpretation Comme nts AMA (test code = 11719-3) 1.8 0.0-24.9 REFERENCE INTERV AL: Mitochondrial (M2) [...] result does not rule out PBC.Performed By: [facility] [place] [id number] Director: Cristian Silva MD, PhDCLIA Number: [id number] [facility] HospitalAnti-Nuclear Antibody-Pathologist Mvbihkrrnbbxzt5861-03-12 02:14:56ANA - Pathologist InterpretationANA HEp-2 IIFA Pathologist [...] MD ?01/13/2024 ?9:14 PM 01/13/2024 9:14 PM [facility] HospitalAnti-Nuclear Antibody [id number] 21:23:34 * Test Item Value Reference Range Interpretation Comme nts CHIRAG Titer by IFA (test code = 2044913960) 1:160 CHIRAG Pattern (test code = 4520409665) Speckled LUCIUS (test code = LUCIUS) Anti-nuclear [...] specimen will be held for 7 days. [facility] HospitalAnti-Nuclear Antibody [id number] 21:44:16* Test Item Value Reference Range Interpretation Comme nts CHIRAG (test code = 1984782281) Positive Negative A LUCIUS (test code = LUCIUS) Negative: ?No Anti-Nuclear Antibodies detected by IFA. Positive: ?CHIRAG IFA screen performed with a 1:80 dilution in adults and a 1:40 dilution in pediatrics. ?A titer is performed and reported separately when the CHIRAG is "Positive" or when "Cytoplasmic staining is observed." Lab Interpretation (test code = 62123-8) Abnormal [facility] HospitalHav Antibody (IgG and IgM)2024-01-10 07:21:32 * Test Item Value Reference Range Interpretation Comme [facility] HAV Total (test code = 4966837301) Positive HAVT Semi-Quantitative (test code = 2064860789) 0.07 LUCIUS (test code = LUCIUS) Indicates past or present infection with HAV or exposure to HAV due to vaccination. [facility] HospitalHepatitis B Surface Boyjrwwq2914-44-46 07:09:56* Test Item Value Reference Range Interpretation Comme [facility] HBsAB (test code = 1506418301) Negative HBsAb Semi-Quantitative (test code = 9912065992) 0.10 mIU/mL LUCIUS (test code = LUCIUS) Interpretation: ?Hepatitis B Surface Antibody ? Negative - Patient is considered to be not immune to infection with HBV. ? ? Positive - Anti-HBs detected at greater than or equal to 12 mIU/mL. ?Patient is considered to be immune to infection with HBV. ? [facility] HospitalHcv Akqschvz3086-20-60 07:09:56* Test Item Value Reference Range Interpretation Comme [facility] HCV Ab (test code = 13312-2) Negative HCV Semi-Quantitative (test code = 66125-6) 0.07 [facility] HospitalTriiodothyronine2024-10-26 07:01:13* Test Item Value Reference Range Interpretation Comme nts T3 (test code = 1441135208) 112.0 ng/dL 97.0-170.0 Lab Interpretation (test cod e = 64235-0) Normal [facility] HospitalHepatitis B Surface Tqlxsbj5170-50-65 06:52:48 * Test Item Value Reference Range Interpretation Comme nts HBsAg Semi-Quantitative (jocelyne t code = 5195-3) 0.10 Negative [facility]. Metabolic Panel (75621)2024-01-09 23:57:24* Test Item Value Reference Range Interpretation Comme nts NA (test code = 2423942595) 140 mmol/L 135-145 K (test code = 3472983993) 4.2 mmol/L 3.5-5.0 CL (test code = 7253352257) 103 mmol/L 98-108 CO2 TOTAL (test code = 6043744434) 32 mmol/L 23-31 H AGAP (test code = 0097625407) 5 2-16 BUN (test code = 4568663507) 24 mg/dL 7-23 H GLUCOSE (test code = 7098001588) 112 mg/dL 70-110 H CREATININE (test code = 2160-0) 1.17 mg/dL 0.50-1.04 H TOTAL BILI (test code = 1946422126) 0.8 mg/dL 0.1-1.1 CALCIUM (test code = 8626427965) 10.5 mg/dL 8.6-10.6 T PROTEIN (test code = 5194078816) 7.2 g/dL 6.3-8.2 ALBUMIN (test code = 7469228692) 4.2 g/dL 3.5-5.0 ALK PHOS (test code = 7736285767) 98 U/L 34-122 ALTv (test code = 1742-6) 64 U/L 5-35 H AST(SGOT) (test code = 7846809171) 39 U/L 13-40 eGFR (test code = 48809-4) 53.9 mL/min/1.73m2 CKD-EPI eGFR (2020). Assuming creatinine has been stable day-to-day for at least three months, the eGFR indicates Category G3a (45 - 59 mL/min/1.73 m2) Lab Interpretation (test code = 76528-4) Abnormal [facility] HospitalPOCT Urinalysis W Specific Nbgplqt8255-18-88 21:53:00* Test Item Value Reference Range Interpretation [...] 3267) Lab Interpretation (test cod e = 19671-9) Abnormal [facility] HospitalGlycosylated Hemoglobin (A1C)2023-09-11 01:04:49* Test Item Value Reference Range Interpretation Comme nts HGB A1C (test code = 4548-4) 5.8 % 4.0-5.7 H LUCIUS (test code = LUCIUS) Reference RangesNormal: <5.7%Prediabetes: 5.7 - 6.4%Diabetes: > 6.5% Lab Interpretation (test code = 43360-2) Abnormal [facility] HospitalFree [id number] 23:46:07* Test Item Value Reference Range Interpretation Comme nts FREE T4 (test code = 5811778789) 0.96 0.78-2.20 Lab Interpretation (test cod e = 15578-4) Normal [facility] HospitalThyroid Stimulating Zsccykj0048-50-05 20:15:52 * Test Item Value Reference Range Interpretation Comme nts TSH (test code = 7704604631) 8.75 0.45-4.70 H Lab Interpretation (test cod e = 28631-5) Abnormal [facility] HospitalLipid Panel (07912)(Total Cholesterol, Triglycerides, HDL)2023-09-10 19:47:06* Test Item Value Reference Range Interpretation Comme nts CHOL (test code = 8840398816) 100 mg/dL 120-200 L HDL (test code = 8420116326) 47 mg/dL >=50 L HDLC RATIO (test code = 3165789932) 2.1 <=4.5 TRIG (test code = 9801986842) 65 mg/dL 30-170 LDL CHOL (test code = 74635-0) 40 mg/dL <=160 VLDL (test code = 7086540866) 13 mg/dL 5-60 Lab Interpretation (test cod e = 10197-5) Abnormal [facility] HospitalComp. Metabolic Panel (31097)2023-09-10 19:46:45* Test Item Value Reference Range Interpretation Comme nts NA (test code = 4877943125) 143 mmol/L 135-145 K (test code = 9918972424) 3.9 mmol/L 3.5-5.0 CL (test code = 9860252375) 105 mmol/L 98-108 CO2 TOTAL (test code = 7299519950) 30 mmol/L 23-31 AGAP (test code = 0983738722) 8 2-16 BUN (test code = 5917639711) 16 mg/dL 7-23 GLUCOSE (test code = 1691281271) 91 mg/dL 70-110 CREATININE (test code = 2160-0) 0.88 mg/dL 0.50-1.04 TOTAL BILI (test code = 4722527549) 0.6 mg/dL 0.1-1.1 CALCIUM (test code = 3125913316) 10.5 mg/dL 8.6-10.6 T PROTEIN (test code = 3603330764) 6.5 g/dL 6.3-8.2 ALBUMIN (test code = 1904154661) 4.0 g/dL 3.5-5.0 ALK PHOS (test code = 3328259556) 159 U/L 34-122 H ALTv (test code = 1742-6) 74 U/L 5-35 H AST(SGOT) (test code = 9945253673) 45 U/L 13-40 H eGFR (test code = 37672-8) 75.8 mL/min/1.73m2 CKD-EPI eGFR (2020). Assuming creatinine has been stable day-to-day for at least three months, the eGFR indicates Category G2 (60 - 89 mL/min/1.73 m2) Lab Interpretation (test code = 60603-4) Abnormal [facility] with Cmnl2782-78-90 19:46:05* Test Item Value Reference Range Interpretation [...] 32.4 g/dL 31.6-35.1 RDW-SD (test code = 61985-1) 46.5 fL 39.0-49.9 RDW-CV (test code = 788-0) 13.2 % 12.0-15.5 PLT (test code = 777-3) 235 166-358 MPV (test code = 28304-6) 11.6 fL 9.5-12.9 NRBC/100 WBC (test code = 1361254608) 0.0 0.0-10.0 NRBC x10^3 (test code = 0541856832) See_Comment [Automated messa ge] The system which generated this result transmitted reference range: 10*3/?L. The reference range was not used to interpret this result as normal/abnormal. GRAN MAT (NEUT) % (test code = 770-8) 68.6 % IMM GRAN % (test code = 2310847985) 0.20 % LYMPH % (test code = 736-9) 19.4 % MONO % (test code = 5905-5) 8.2 % EOS % (test code = 713-8) 2.5 % BASO % (test code = 706-2) 1.1 % GRAN MAT x10^3(ANC) (test code = 4533348072) 3.86 10*3/uL 1.88-7.09 IMM GRAN x10^3 (test code = 2070862010) 0.00-0.06 LYMPH x10^3 (test code = 731-0) 1.09 10*3/uL 1.32-3.29 L MONO x10^3 (test code = 742-7) 0.46 10*3/uL 0.33-0.92 EOS x10^3 (test code = 711-2) 0.14 10*3/uL 0.03-0.39 BASO x10^3 (test code = 704-7) 0.06 10*3/uL 0.01-0.07 Lab Interpretation (test code = 35712-5) Abnormal [facility] HospitalXR HAND 3+ VW [id number] 02:24:03EXAM: XR HAND 3+ VW RIGHT HISTORY: 58 years old Female; right thumb pain COMPARISON: None FINDINGS:Radiographs of the right hand demonstrate soft tissue swelling about thethumb without underlying acute fracture. 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 Generalized osteopenia isnoted.[facility] HospitalREFERRAL- REQUEST/[id number] 21:13:52Ordered by an unspecified provider.[facility] REFERRAL- REQUEST/[id number] 20:59:23Ordered by an unspecified provider. [facility] HospitalFL TIME OR (NON-REPORTABLE)2023-06-17 14:39:42 These images do not require a Radiology diagnostic report.[facility] HospitalUrine Injflsv8917-77-06 11:52:56* Test Item Value Reference Range Interpretation Comme nts URINE CULTURE (test code = 630-4) No aerobic growth (< 1000 CFU/mL) [facility] HospitalIntubation2024-03-28 21:52:00Jenaro Padilla MD ? ? 06/12/2023 [...] of attempts at approach: 1[facility]2023-06-12 18:36:22* Test Item Value Reference Range Interpretation Comme nts POCT GLU (test code = 6729266023) 86 mg/dL 70-110 Lab Interpretation (test cod e = 31661-3) Normal [facility] GLUCOSE (AUTOMATED)2023-06-12 18:36:22* Test Item Value Reference Range Interpretation Comme nts POCT GLU (test code = 4974227128) 86 mg/dL 70-110 Lab Interpretation (test cod e = 95365-4) Normal [facility] GLUCOSE (AUTOMATED)2023-06-12 18:36:22* Test Item Value Reference Range Interpretation Comme nts POCT GLU (test code = 1017283640) 86 mg/dL 70-110 Lab Interpretation (test cod e = 88891-3) Normal [facility]. METABOLIC PANEL (60969)2023-06-05 01:00:22* Test Item Value Reference Range Interpretation Comme nts NA (test code = 5163834124) 137 mmol/L 135-145 K (test code = 8112341381) 3.9 mmol/L 3.5-5.0 CL (test code = 5231550899) 101 mmol/L 98-108 CO2 TOTAL (test code = 3903966285) 28 mmol/L 23-31 AGAP (test code = 8661791421) 8 2-16 BUN (test code = 8846609124) 17 mg/dL 7-23 GLUCOSE (test code = 9134577030) 62 mg/dL 70-110 L CREATININE (test code = 2160-0) 1.04 mg/dL 0.50-1.04 TOTAL BILI (test code = 0816806414) 0.5 mg/dL 0.1-1.1 CALCIUM (test code = 2954585846) 9.2 mg/dL 8.6-10.6 T PROTEIN (test code = 8735607688) 6.8 g/dL 6.3-8.2 ALBUMIN (test code = 2755857003) 3.8 g/dL 3.5-5.0 ALK PHOS (test code = 1827187870) 237 U/L 34-122 H ALTv (test code = 1742-6) 119 U/L 5-35 H AST(SGOT) (test code = 2247803151) 59 U/L 13-40 H eGFR (test code = 68336-0) 62.0 mL/min/1.73m2 CKD-EPI eGFR (2020). Assuming creatinine has been stable day-to-day for at least three months, the eGFR indicates Category G2 (60 - 89 mL/min/1.73 m2) Lab Interpretation (test code = 67187-0) Abnormal [facility] WITH [id number] 00:59:46* Test Item Value Reference Range Interpretation [...] 34.4 g/dL 31.6-35.1 RDW-SD (test code = 21322-8) 41.2 fL 39.0-49.9 RDW-CV (test code = 788-0) 12.4 % 12.0-15.5 PLT (test code = 777-3) 306 166-358 MPV (test code = 41797-0) 10.5 fL 9.5-12.9 NRBC/100 WBC (test code = 5263802761) 0.0 0.0-10.0 NRBC x10^3 (test code = 7203248962) See_Comment [Automated messa ge] The system which generated this result transmitted reference range: 10*3/?L. The reference range was not used to interpret this result as normal/abnormal. GRAN MAT (NEUT) % (test code = 770-8) 66.4 % IMM GRAN % (test code = 8880345306) 0.50 % LYMPH % (test code = 736-9) 13.9 % MONO % (test code = 5905-5) 14.3 % EOS % (test code = 713-8) 4.4 % BASO % (test code = 706-2) 0.5 % GRAN MAT x10^3(ANC) (test code = 9772694732) 6.19 10*3/uL 1.88-7.09 IMM GRAN x10^3 (test code = 3414050433) 0.05 10*3/uL 0.00-0.06 LYMPH x10^3 (test code = 731-0) 1.30 10*3/uL 1.32-3.29 L MONO x10^3 (test code = 742-7) 1.34 10*3/uL 0.33-0.92 H EOS x10^3 (test code = 711-2) 0.41 10*3/uL 0.03-0.39 H BASO x10^3 (test code = 704-7) 0.05 10*3/uL 0.01-0.07 Lab Interpretation (test code = 82604-0) Abnormal [facility] GLUCOSE (AUTOMATED)2023-06-03 17:26:28* Test Item Value Reference Range Interpretation Comme nts POCT GLU (test code = 6349922644) 188 mg/dL 70-110 H Lab Interpretation (test cod e = 28553-6) Abnormal [facility] GLUCOSE (AUTOMATED)2023-06-03 17:26:28* Test Item Value Reference Range Interpretation Comme nts POCT GLU (test code = 6308181337) 188 mg/dL 70-110 H Lab Interpretation (test cod e = 09024-6) Abnormal [facility] GLUCOSE (AUTOMATED)2023-06-03 12:58:09* Test Item Value Reference Range Interpretation Comme nts POCT GLU (test code = 5554005782) 219 mg/dL 70-110 H Lab Interpretation (test cod e = 05097-4) Abnormal [facility] GLUCOSE (AUTOMATED)2023-06-03 12:58:09* Test Item Value Reference Range Interpretation Comme nts POCT GLU (test code = 2009126621) 219 mg/dL 70-110 H Lab Interpretation (test cod e = 66490-0) Abnormal [facility] GLUCOSE (AUTOMATED)2023-06-03 08:12:22* Test Item Value Reference Range Interpretation Comme nts POCT GLU (test code = 8939374787) 198 mg/dL 70-110 H Lab Interpretation (test cod e = 22549-8) Abnormal [facility] GLUCOSE (AUTOMATED)2023-06-03 08:12:22* Test Item Value Reference Range Interpretation Comme nts POCT GLU (test code = 5319724309) 198 mg/dL 70-110 H Lab Interpretation (test cod e = 87738-1) [facility]2023-06-03 05:04:01* Test Item Value Reference Range Interpretation Comme nts POCT GLU (test code = 2121115640) 330 mg/dL 70-110 H Lab Interpretation (test cod e = 88533-4) [facility]normal [facility]2023-06-03 05:04:01* Test Item Value Reference Range Interpretation Comme nts POCT GLU (test code = 7130279851) 330 mg/dL 70-110 H Lab Interpretation (test cod e = 39133-4) Abnormal [facility] GLUCOSE (AUTOMATED)2023-06-03 01:51:02* Test Item Value Reference Range Interpretation Comme nts POCT GLU (test code = 3878140712) 418 mg/dL 70-110 H Lab Interpretation (test cod e = 25510-6) Abnormal [facility] GLUCOSE (AUTOMATED)2023-06-03 01:51:02* Test Item Value Reference Range Interpretation Comme nts POCT GLU (test code = 0745893759) 418 mg/dL 70-110 H Lab Interpretation (test cod e = 36779-9) Abnormal [facility] GLUCOSE (AUTOMATED)2023-06-02 21:47:04* Test Item Value Reference Range Interpretation Comme nts POCT GLU (test code = 0195019393) 192 mg/dL 70-110 H Lab Interpretation (test cod e = 26600-1) Abnormal [facility] GLUCOSE (AUTOMATED)2023-06-02 21:47:04* Test Item Value Reference Range Interpretation Comme nts POCT GLU (test code = 7149783211) 192 mg/dL 70-110 H Lab Interpretation (test cod e = 72190-4) Abnormal [facility] TIME OR (NON-REPORTABLE)2023-06-02 18:12:07 These images do not require a Radiology diagnostic report.[facility] TIME OR (NON-REPORTABLE)2023-06-02 18:12:07These images do not require a Radiology diagnostic report.[facility] GLUCOSE (AUTOMATED)2023-06-02 01:58:20* Test Item Value Reference Range Interpretation Comme nts POCT GLU (test code = 7320497164) 193 mg/dL 70-110 H Lab Interpretation (test cod e = 16637-6) Abnormal [facility] GLUCOSE (AUTOMATED)2023-06-02 01:58:20* Test Item Value Reference Range Interpretation Comme nts POCT GLU (test code = 2577340908) 193 mg/dL 70-110 H Lab Interpretation (test cod e = 54685-7) Abnormal [facility] GLUCOSE (AUTOMATED)2023-06-01 22:27:31* Test Item Value Reference Range Interpretation Comme nts POCT GLU (test code = 3820265289) 98 mg/dL 70-110 Lab Interpretation (test cod e = 40336-9) Normal [facility] GLUCOSE (AUTOMATED)2023-06-01 22:27:31* Test Item Value Reference Range Interpretation Comme nts POCT GLU (test code = 1580270821) 98 mg/dL 70-110 Lab Interpretation (test cod e = 86728-5) Normal [facility] Glucose (Age >30 Days)2023-06-01 22:27:00 * Test Item Value Reference Range Interpretation Comme nts POCT Glu (age>30days) (test code = 3342) 98 mg/dL 70-110 Lab Interpretation (test cod e = 31630-9) Normal [facility] Glucose (Age >30 Days)2023-06-01 22:27:00 * Test Item Value Reference Range Interpretation Comme nts POCT Glu (age>30days) (test code = 3342) 98 mg/dL 70-110 Lab Interpretation (test cod e = 38723-2) Normal [facility] 2 [id number] 18:01:12Chest, two views History: ?cough Ordering Physician: ?[facility] [id number] 18:01:12Chest, two views History: ?cough Ordering Physician: ?[facility]CT [facility] P[facility] WO [id number] 17:53:09EXAM: CT ABDOMEN AND PELVIS WITHOUT CONTRAST [...] TISSUES: No suspicious lytic or sclerotic bony lesions.[facility] ABDOMEN PELVIS WO CONTRAST 2023-06-01 17:53:09EXAM: [...] TISSUES: No suspicious lytic or sclerotic bony lesions.[facility] WITH [id number] 17:05:51* Test Item Value Reference Range Interpretation [...] 34.1 g/dL 31.6-35.1 RDW-SD (test code = 55671-3) 41.0 fL 39.0-49.9 RDW-CV (test code = 788-0) 12.1 % 12.0-15.5 PLT (test code = 777-3) 273 166-358 MPV (test code = 64262-1) 10.6 fL 9.5-12.9 NRBC/100 WBC (test code = 9626095384) 0.0 0.0-10.0 NRBC x10^3 (test code = 4147317764) See_Comment [Automated messa ge] The system which generated this result transmitted reference range: 10*3/?L. The reference range was not used to interpret this result as normal/abnormal. GRAN MAT (NEUT) % (test code = 770-8) 75.9 % IMM GRAN % (test code = 7549511059) 0.30 % LYMPH % (test code = 736-9) 10.6 % MONO % (test code = 5905-5) 12.3 % EOS % (test code = 713-8) 0.5 % BASO % (test code = 706-2) 0.4 % GRAN MAT x10^3(ANC) (test code = 7211346665) 9.36 10*3/uL 1.88-7.09 H IMM GRAN x10^3 (test code = 3191176638) 0.04 10*3/uL 0.00-0.06 LYMPH x10^3 (test code = 731-0) 1.30 10*3/uL 1.32-3.29 L MONO x10^3 (test code = 742-7) 1.51 10*3/uL 0.33-0.92 H EOS x10^3 (test code = 711-2) 0.06 10*3/uL 0.03-0.39 BASO x10^3 (test code = 704-7) 0.05 10*3/uL 0.01-0.07 Lab Interpretation (test code = 90281-9) Abnormal [facility] WITH [id number] 17:05:51* Test Item Value Reference Range Interpretation [...] 34.1 g/dL 31.6-35.1 RDW-SD (test code = 83162-1) 41.0 fL 39.0-49.9 RDW-CV (test code = 788-0) 12.1 % 12.0-15.5 PLT (test code = 777-3) 273 166-358 MPV (test code = 06581-9) 10.6 fL 9.5-12.9 NRBC/100 WBC (test code = 6228761161) 0.0 0.0-10.0 NRBC x10^3 (test code = 2208419842) See_Comment [Automated messa ge] The system which generated this result transmitted reference range: 10*3/?L. The reference range was not used to interpret this result as normal/abnormal. GRAN MAT (NEUT) % (test code = 770-8) 75.9 % IMM GRAN % (test code = 9342071048) 0.30 % LYMPH % (test code = 736-9) 10.6 % MONO % (test code = 5905-5) 12.3 % EOS % (test code = 713-8) 0.5 % BASO % (test code = 706-2) 0.4 % GRAN MAT x10^3(ANC) (test code = 4548840097) 9.36 10*3/uL 1.88-7.09 H IMM GRAN x10^3 (test code = 3464463467) 0.04 10*3/uL 0.00-0.06 LYMPH x10^3 (test code = 731-0) 1.30 10*3/uL 1.32-3.29 L MONO x10^3 (test code = 742-7) 1.51 10*3/uL 0.33-0.92 H EOS x10^3 (test code = 711-2) 0.06 10*3/uL 0.03-0.39 BASO x10^3 (test code = 704-7) 0.05 10*3/uL 0.01-0.07 Lab Interpretation (test code = 36553-1) [facility]204[facility]-01 16:54:45* Test Item Value Reference Range Interpretation Comme nts NA (test code = 2331939638) 136 mmol/L 135-145 K (test code = 4576438203) 4.3 mmol/L 3.5-5.0 CL (test code = 8863561109) 102 mmol/L 98-108 CO2 TOTAL (test code = 9706339657) 26 mmol/L 23-31 AGAP (test code = 9337667961) 8 2-16 BUN (test code = 6714586978) 23 mg/dL 7-23 GLUCOSE (test code = 1110731669) 154 mg/dL 70-110 H CREATININE (test code = 2160-0) 1.36 mg/dL 0.50-1.04 H TOTAL BILI (test code = 0157611308) 0.9 mg/dL 0.1-1.1 CALCIUM (test code = 1351810726) 9.3 mg/dL 8.6-10.6 T PROTEIN (test code = 0657343859) 6.9 g/dL 6.3-8.2 ALBUMIN (test code = 3212864768) 4.2 g/dL 3.5-5.0 ALK PHOS (test code = 6799140709) 190 U/L 34-122 H ALTv (test code = 1742-6) 62 U/L 5-35 H AST(SGOT) (test code = 8783860126) 54 U/L 13-40 H eGFR (test code = 36662-7) 45.0 mL/min/1.73m2 CKD-EPI eGFR (2020). Assuming creatinine has been stable day-to-day for at least three months, the eGFR indicates Category G3a (45 - 59 mL/min/1.73 m2) Lab Interpretation (test code = 86571-1) [facility]54:45* Test Item Value Reference Range Interpretation Comme nts LIPASE (test code = 4822116614) 39 U/L 0-220 Lab Interpretation (test cod e = 59346-6) Normal [facility]OL[facility] PAN[facility] (81198)2023-06-01 16:54:45* Test Item Value Reference Range Interpretation Comme nts NA (test code = 2787825132) 136 mmol/L 135-145 K (test code = 3495551812) 4.3 mmol/L 3.5-5.0 CL (test code = 5796760420) 102 mmol/L 98-108 CO2 TOTAL (test code = 8266259767) 26 mmol/L 23-31 AGAP (test code = 3454314660) 8 2-16 BUN (test code = 1599814412) 23 mg/dL 7-23 GLUCOSE (test code = 0098903311) 154 mg/dL 70-110 H CREATININE (test code = 2160-0) 1.36 mg/dL 0.50-1.04 H TOTAL BILI (test code = 5990907589) 0.9 mg/dL 0.1-1.1 CALCIUM (test code = 9395428280) 9.3 mg/dL 8.6-10.6 T PROTEIN (test code = 6144636374) 6.9 g/dL 6.3-8.2 ALBUMIN (test code = 6138869309) 4.2 g/dL 3.5-5.0 ALK PHOS (test code = 4008192316) 190 U/L 34-122 H ALTv (test code = 1742-6) 62 U/L 5-35 H AST(SGOT) (test code = 7636621291) 54 U/L 13-40 H eGFR (test code = 48188-2) 45.0 mL/min/1.73m2 CKD-EPI eGFR (2020). Assuming creatinine has been stable day-to-day for at least three months, the eGFR indicates Category G3a (45 - 59 mL/min/1.73 m2) Lab Interpretation (test code = 27400-5) [facility]normal [facility] 16:54:45* Test Item Value Reference Range Interpretation Comme nts LIPASE (test code = 6230552745) 39 U/L 0-220 Lab Interpretation (test cod e = 92443-9) Normal [facility] [id number] 03:30:00* Test Item Value Reference Range Interpretation [...] = POCGLU) 94 MG/DL 70-110 N URINALYSIS SIHEHEISW1269-33-71 03:16:00* Test Item Value Reference Range Interpretation [...] = EDLEUK) Large Negative A [facility], [address] [place], [address], Hemoglobin A1c measurement device aecft8538-31-17 14:58:00* Test Item Value Reference Range Interpretation Comme nts Hemoglobin A1c/Hemoglobin.to ayush in Blood (test code = 4548-4) 6.1 % 4.0-6.4 [facility] EAG wsojjeukhe0735-62-23 00:00:00* Test Item Value Reference Range Interpretation Comme nts Hemoglobin A1c/Hemoglobin.to ayush in Blood (test code = 4548-4) 15.1 % 4.8-5.6 H estim. avg glu (EAG) (test c ode = estim. avg glu (EAG)) 387 mg/dL [facility]/Creatinine [Mass Ratio] in Ldwhf9062-06-58 00:00:00* Test Item Value Reference Range Interpretation Comme nts microalbumin random urine (test code = microalbumin random urine) 7 ug/mL creatinine random urine (jocelyne t code = creatinine random urine) 35.7 mg/dL 20.0-320.0 microalbumin/creatinine (random urine) ratio calculated (test code = microalbumin/creatinine (random urine) ratio calculated) 20 mcg/mg creat [facility]Comprehensive [facility] 2000 panel - Serum or Plasma [...] (test code = anion gap) 13 calc [facility] HospitalUrinalysis complete panel - Ezyri1759-87-49 00:00:00* Test Item Value Reference Range Interpretation [...] examination (jocelyne t code = microscopic examination) [facility], tclpxdzmlho7921-14-01 00:00:00* Test Item Value Reference Range Interpretation [...] code = comment) comment [facility] W Auto Differential panel - Jsdkl8205-11-79 00:00:00 * Test Item Value Reference Range [...] (test code = baso#) 0.08 x10*3/?L 0.01-0.08 [facility] Hospital[facility]yroxine (T4) free [Mass/volume] in Serum or Plasma 2022-04-05 00:00:00* Test Item Value Reference Range Interpretation Comme nts T4 free (test code = T4 free) 1.10 NG/dL 0.70-1.48 [facility] HospitalLipid 1996 panel - Serum or Cvrzgh9598-24-78 00:00:00* Test Item Value Reference Range Interpretation [...] (test code = 2089-1) see comment <130 [facility] HospitalPnmwzfvb35-Gymcsigqdesvbq D3+25-Hydroxyvitamin D2 [Mass/volume] in Serum or Ojokar1296-98-69 00:00:00* Test Item Value Reference Range Interpretation Comme [facility] vitamin D 25OH (test code = vitamin D 25OH) 19.2 NG/mL 30.0-96.0 L [facility] HospitalThyrotropin [Units/volume] in Serum or Xwzevn6376-38-47 00:00:00* Test Item Value Reference Range Interpretation Comme [facility] TSH (test code = TSH) 3.371 uIU/mL 0.350-4.940 [facility] HospitalTriiodothyronine (T3) Free [Mass/volume] in Serum or Fqwets0277-40-64 00:00:00* Test Item Value Reference Range Interpretation Comme nts T3 free (test code = T3 free) 1.95 pg/mL 1.58-3.91 [facility] HospitalHemoglobin A1c/Hemoglobin.total in Tpubv2940-11-61 00:00:00* Test Item Value Reference Range Interpretation Comme nts Hemoglobin A1c/Hemoglobin.to ayush in Blood (test code = 4548-4) 13.8 % 1.0-5.7 H average blood glucose (calcu lation) (test code = average blood glucose (calculation)) 349 mg/dL [facility] HospitalBacteria identified in Urine by Guzeejf6353-69-14 00:00:00* Test Item Value Reference Range Interpretation Comme nts urine culture, routine (test code = urine culture, routine) final report A result 1 (test code = result 1) escherichia coli A antimicrobial susceptibility (test code = antimicrobial susceptibility) comment [facility] Hospital[facility]inalysis macro (dipstick) panel - [id number] 17:24:00* Test Item Value Reference Range Interpretation Comme nts Interpretation UA test performed using: (test code = Interpretation UA test performed using:) Automated device/analyzer ([id number],[employer]) Interpretation Color (test code = Interpretation Color) Yellow Interpretation Clarity (test code = Interpretation Clarity) Clear Interpretation Glucose (mg/dL) (test code = Interpretation Glucose (mg/dL)) 500 Interpretation Bilirubin (test code = Interpretation Bilirubin) Negative Interpretation Ketone (mg/dL) (test code = Interpretation Ketone (mg/dL)) 80 Interpretation Specific [place] (test code = Interpretation Specific [place]) 1.015 Interpretation Occult Blood (test code = Interpretation Occult Blood) Trace-Intact (or Trace Non-Hemolyzed) Interpretation pH (test code = Interpretation pH) 5 Interpretation Protein (test code = Interpretation Protein) Negative Interpretation Urobilinogen (test code = Interpretation Urobilinogen) 0.2 Interpretation Nitrites (test code = Interpretation Nitrites) Negative Interpretation Leukocytes (test code = Interpretation Leukocytes) Negative [facility] macro (dipstick) panel - Simoz3703-31-67 09:20:37* Test Item Value Reference Range Interpretation Comme nts Color Color (test code = Col or Color) yellow Color Appearance (test code = Color Appearance) clear Color Glucose (test code = C olor Glucose) negative Color Bilirubin (test code = Color Bilirubin) negative Color Ketones (test code = C olor Ketones) negative Color Specific [place] (test code = Color Specific [place]) 1.010 Color Blood (test code = Col or Blood) negative Color PH (test code = Color PH) 5.5 Color Protein (test code = C olor Protein) negative Color Urobilinogen (test cod e = Color Urobilinogen) 0.2 Color Nitrites (test code = Color Nitrites) negative Color Leukocytes (test code = Color Leukocytes) negative [facility] HospitalGlucose [Mass/volume] in Capillary plbyq0316-71-69 08:44:39* Test Item Value Reference Range Interpretation Comme nts Blood Glucose: mg/dl (test c ode = Blood Glucose: mg/dl) 87 [facility] Consult Notes Date/Time Note Provider Source 2023-06-01 [...] daily. 90 tablet 3 blood sugar diagnostic (MerlinTOUCH ULTRA TEST) strip Use to test glucose once a day E11.9 100 Strip 1 lancets (MerlinTOUCH DELICA LANCETS) 30 gauge Misc Use to [...] Left 06/26/2017 Surgeon: Jarred Jara MD; Location: [facility] COLONOSCOPY Left 12/06/2020 Surgeon: Abdelrahman Madden MD; Location: [facility] [place] COLPOSCOPY benign per pt. normal pap since ESOPHAGOGASTRODUODENOSCOPY N/A 06/27/2016 Surgeon: Jarred Jara MD; Location: [facility] ESOPHAGOGASTRODUODENOSCOPY N/A 06/26/2017 Surgeon: Jarred Jara MD; Location: [facility] Location ESOPHAGOGASTRODUODENOSCOPY Left 12/06/2020 Surgeon: Abdelrahman Madden MD; Location: [facility] HYSTERECTOMY kept ovaries; dysmenorrhea TRIGGER FINGER RELEASE Left 05/27/2017 Surgeon: Prashant El MD; Location: [facility] TUBAL LIGATION Family History Problem Relation Age of Onset Stroke Father Hypertension Father Breast Cancer Mother late 50s Hypertension Mother Lung Cancer Mother Uterine Cancer Sister Cancer Maternal Grandfather throat Social History Socioeconomic History Marital status: 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 Tena 's note. I agree with the documentation and plan Antwan Warner MD 06/02/2023 9:29 AM [facility] - Health History and Physical Notes Date/Time [...] questions answered Carlos Gomes MD [facility] 2023-06-12 13:59:14 Patient seen and examined, agree with H&P, no interval changes. Surgeon: Rosey MAZA Date: 06/12/2023 Plan for R sided [facility] today with Dr. Gomes. Guera Hidalgo PGY2 Urology [facility] Associated attestation - Carlos Gomes MD [...] of the lung bases. 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 Currently going to school for criminal justice [...] BACTERIA Few (A) Negative COMP. METABOLIC PANEL (27793) Collection Time: 06/01/23 11:31 AM Result Value [...] of the lung bases. RL: 2601 AFC: 57367 ABDOMEN PELVIS WO CONTRAST Result Date: 06/01/2023 [...] medications. Discussed the case with: [ ] client service consultant [x ] nursing staff [x ] patient/family [x] ED provider Calvin Nova MD XpertMD This note was created using a voice-recognition print line supervisor system. Incorrect words, phrases, or punctuation may have been missed during proofreading and need to be interpreted in the context. If an error is discovered when reviewing the document, please contact Dr. Nova directly for clarification. [facility] Procedure Notes Date/Time Note Provider Source 2023-06-12 18:13:03 Procedure(s): TN CYSTO BLADDER W/URETERAL CATHETERIZATION; TN CYSTO W/INSERT URETERAL STENT; XR RETROGRADE INTRAVENOUS PYELOGRAM FULL OPERATIVE NOTE Date of Surgery: 06/12/2023 Faculty physician: Rosey MZAA Resident physician: Gwen MAZA Anesthesia Type: general - GETA Pre-operative diagnosis: nephrolithiasis Post-operative diagnosis: mid ureteral stricture at the level of the iliac bifurcation, concern for chronic hydronephrosis. Procedures: Ureteroscopy (CPT 99617) Retrograde pyelogram (CPT 19030 + modifier 26 to include professional component for interpretation) Cystoscopy with right ureteral stent placement (08815) Indications: 3mm right proximal ureteral stone, right [...] for a cystoscope and a 22cm 6fr Greek double-J ureteral catheter without the string was [...] in good condition. Guera Hidalgo PGY2 Urology [facility] Associated attestation - Carlos Gomes MD - 06/12/2023 7:26 PM CDT I saw and examined the patient on 06/12/2023 and agree with the resident's note as written by Dr Hidalgo. I actively participated in the decision-making process. Please see the resident's note for additional details. I was present for the entire procedure. Carlos Gomes MD [facility] 2023-06-02 13:13:11 FULL OPERATIVE NOTE Date of [...] Procedures: Cystoscopy with right ureteral stent placement (04625) Retrograde pyelogram (CPT 56243 + modifier 26 to include professional component [...] resistance under fluoroscopic guidance. A 22cm 6.0 -Greek double-J ureteral stent was placed into the [...] spasms Provisional plan for Right [facility] 06/13/2023 [facility] OR Carlos Gomes MD [facility] Notes Date/Time Note Provider Source [facility]2025-03-05 00:00:00 [facility]2025-02-24 00:00:00 [facility]2024-12-31 10:07:16 Xray result received from [facility] showing Avascular necrosis. Ortho referral placed [facility]2024-12-21 10:20:[address] [facility]. Placed in Providers box. [facility]it[facility]10-49-21 15:00:00 Images from the original note were not included. Venipuncture collection performed by clean technique on the right anticubitus. Total of 1 attempts were made. Slight pressure and a bandage/dressing were applied to the site(s). The patient experienced no complications. The following specimens were processed according to instructions and sent to [facility] laboratories per lab order on 02/27/2024 : LT BLUE SST 1 LT GREEN RED LAV PPT DK GREEN (LiHep) DK GREEN (SodH) SIMON DK BLUE (K2) DK BLUE (S) ACD Blood Culture NIPT/NTD [place] [id number] 14:30:00 Addended by: MAGDALENA WISE PA-C on: 02/29/2024 11:21 AM Modules accepted: Orders [place] [id number] 07:30:56 Last Refilled: Disp Refills Start End FADI levothyroxine 75 mcg tablet 90 tablet 1 09/10/2023 -- No Sig: Take 1 tablet by mouth every morning. Sent to pharmacy as: levothyroxine 75 mcg tablet (SYNTHROID) Class: eRX Route: Oral Order: [id number] Date/Time Signed: 09/10/2023 17:29 E-Prescribing Status: Receipt confirmed by pharmacy (09/10/2023 5:29 PM CDT) Notes: Recent Visits Date Type Provider Dept 01/09/24 Office Visit Martha Dangelo FNP [facility] 09/10/23 Office Visit Martha Dangelo FNP [facility] Showing recent visits within past 540 days with a meds authorizing provider and meeting all other requirements Future Appointments Date Type Provider Dept 01/23/24 Appointment Martha Dangelo FNP [facility] Showing future appointments within next 150 days with a meds authorizing provider and meeting all other requirements Glaze Mixer Visit on 01/09/2024 Component Date Value T3 01/09/2024 112.0 AMA 01/09/2024 1.8 CHIRAG 01/09/2024 Positive (A) HAV Total 01/09/2024 Positive HAVT Semi-Quantitative 01/09/2024 0.07 HBsAB 01/09/2024 Negative HBsAb Semi-Quantitative 01/09/2024 0.10 HBsAg 01/09/2024 Negative HBsAg Semi-Quantitative 01/09/2024 0.10 HCV Ab 01/09/2024 Negative HCV Semi-Quantitative 01/09/2024 0.07 NA 01/09/2024 140 K 01/09/2024 4.2 CL 01/09/2024 103 CO2 TOTAL 01/09/2024 32 (H) AGAP 01/09/2024 5 BUN 01/09/2024 24 (H) GLUCOSE 01/09/2024 112 (H) CREATININE 01/09/2024 1.17 (H) TOTAL BILI 01/09/2024 0.8 CALCIUM 01/09/2024 10.5 T PROTEIN 01/09/2024 7.2 ALBUMIN 01/09/2024 4.2 ALK PHOS 01/09/2024 98 ALTv 01/09/2024 64 (H) AST(SGOT) 01/09/2024 39 eGFR 01/09/2024 53.9 CHIRAG Titer by IFA 01/09/2024 1:160 CHIRAG Pattern 01/09/2024 Speckled CHIRAG - Pathologist Interp* 01/09/2024 Value:CHIRAG HEp-2 IIFA Pathologist Interpretation Report Patient Name: Maritza [place] Antinuclear Antibody (CHIRAG) Test (Anti-Cell Antibodies Test) Indirect Immunofluorescence Assay on HEp-2 Cells Screening titer: 1:80 (adults, > 18 years old), 1:40 (pediatrics, <= 18 years old) Result: The antinuclear antibody (CHIRAG) test is positive, demonstrating the AC-4/5-Speckled Pattern with a titer of 1:160. A titer greater than or equal to 1:160 is generally considered to be clinically significant. General Remarks: The AC-4/5-Speckled Pattern is one of the least specific CHIRAG immunofluorescent patterns, associated with many autoantibodies, including antibodies against SS-A (Ro), SS-B (La), Mi-2, TIF1-gamma, TIF1-beta, Ku, U1RNP, U2RNP, Davis, RNA polymerase [...] other types of autoimmune disease, and certain non-autoimmune diseases/conditions. This pattern may also be seen in relatively healthy individuals, particularly at lower titers. For more information, the International Consensus on CHIRAG Patterns (ICAP) guidelines can be found at www.anapatterns.org. CHIRAG pattern clinical associations are neither absolute nor diagnostic, but they may serve as a guide to differential diagnosis formation and/or subsequent follow-up test selection in the appropriate clinical setting. Due to lack of specificity, a positive CHIRAG by itself is not diagnostic and must be interpreted in the context of a patient's clinical presentation and other laboratory findings. If there is clinical suspicion for an autoimmune disorder, obtaining disease-specific and disease-associated autoantibody tests is recommended for further evaluation. The CHIRAG test is an important screening [...] lower titers, in the healthy elderly population, and in individuals with a family history of rheumatic disease. Therefore, a diagnosis cannot be based exclusively on CHIRAG detection and/or pattern and thus should be made via the integration of patient history, physical exam findings, and other diagnostic tests as clinically indicated. Phoebe Kolb MD 01/13/2024 9:14 PM Office Visit on 01/09/2024 Component Date Value POCT U SP GRAV 01/09/2024 1.000 (A) POCT PH U 01/09/2024 5 POCT U LEUK EST 01/09/2024 neg POCT U NIT 01/09/2024 neg POCT U PROT 01/09/2024 neg POCT U GLU 01/09/2024 neg POCT U KETONE 01/09/2024 neg POCT U UROBILI 01/09/2024 0.2 POCT U BILI 01/09/2024 neg POCT U BLD 01/09/2024 neg WBC 01/09/2024 6.55 RBC 01/09/2024 4.12 HGB 01/09/2024 13.1 HCT 01/09/2024 39.8 MCV 01/09/2024 96.6 (H) MCH 01/09/2024 31.8 MCHC 01/09/2024 32.9 RDW-SD 01/09/2024 43.5 RDW-CV 01/09/2024 12.2 PLT 01/09/2024 299 MPV 01/09/2024 12.1 NRBC/100 WBC 01/09/2024 0.0 NRBC [id number]/09/2024 <0.01 GRAN MAT (NEUT) % 01/09/2024 55.9 IMM GRAN % 01/09/2024 0.30 LYMPH % 01/09/2024 30.7 MONO % 01/09/2024 10.1 EOS % 01/09/2024 1.8 BASO % 01/09/2024 1.2 GRAN MAT x103(ANC) 01/09/2024 3.66 IMM GRAN [id number]/09/2024 <0.03 LYMPH h5975801/09/2024 2.01 MONO n2922401/09/2024 0.66 EOS g9727901/09/2024 0.12 BASO p2291601/09/2024 0.08 (H) URINE CULTURE 01/09/2024 10,000 - 100,000 CFU/mL mixed aerobic organisms - suggests endogenous microbial contamination Glaze Mixer Visit on 09/10/2023 Component Date Value NA 09/10/2023 143 K 09/10/2023 3.9 CL 09/10/2023 105 CO2 TOTAL 09/10/2023 30 AGAP 09/10/2023 8 BUN 09/10/2023 16 GLUCOSE 09/10/2023 91 CREATININE 09/10/2023 0.88 TOTAL BILI 09/10/2023 0.6 CALCIUM 09/10/2023 10.5 T PROTEIN 09/10/2023 6.5 ALBUMIN 09/10/2023 4.0 ALK PHOS 09/10/2023 159 (H) ALTv 09/10/2023 74 (H) AST(SGOT) 09/10/2023 45 (H) eGFR 09/10/2023 75.8 HGB A1C 09/10/2023 5.8 (H) CHOL 09/10/2023 100 (L) HDL 09/10/2023 47 (L) HDLC RATIO 09/10/2023 2.1 TRIG 09/10/2023 65 LDL CHOL 09/10/2023 40 VLDL 09/10/2023 13 TSH 09/10/2023 8.75 (H) CREAT U 09/10/2023 40.4 MICROALB U 09/10/2023 MICROAL/CR 09/10/2023 FREE T4 09/10/2023 0.96 Office Visit on 09/10/2023 Component Date Value WBC 09/10/2023 5.62 RBC 09/10/2023 3.92 (L) HGB 09/10/2023 12.1 HCT 09/10/2023 37.4 MCV 09/10/2023 95.4 MCH 09/10/2023 30.9 MCHC 09/10/2023 32.4 RDW-SD 09/10/2023 46.5 RDW-CV 09/10/2023 13.2 PLT 09/10/2023 235 MPV 09/10/2023 11.6 NRBC/100 WBC 09/10/2023 0.0 NRBC h35834 <0.01 GRAN MAT (NEUT) % 09/10/2023 68.6 IMM GRAN % 09/10/2023 0.20 LYMPH % 09/10/2023 19.4 MONO % 09/10/2023 8.2 EOS % 09/10/2023 2.5 BASO % 09/10/2023 1.1 GRAN MAT x103(ANC) 09/10/2023 3.86 IMM GRAN [id number]/10/2023 <0.03 LYMPH b07043 1.09 (L) MONO v00952 0.46 EOS d39857 0.14 BASO l7488009/10/2023 0.06 Admission on 06/12/2023, Discharged on 06/12/2023 Component Date Value POCT GLU 06/12/2023 86 URINE CULTURE 06/12/2023 No aerobic growth (< 1000 CFU/mL) Admission on 06/04/2023, Discharged on 06/04/2023 Component Date Value NA 06/04/2023 137 K 06/04/2023 3.9 CL 06/04/2023 101 CO2 TOTAL 06/04/2023 28 AGAP 06/04/2023 8 BUN 06/04/2023 17 GLUCOSE 06/04/2023 62 (L) CREATININE 06/04/2023 1.04 TOTAL BILI 06/04/2023 0.5 CALCIUM 06/04/2023 9.2 T PROTEIN 06/04/2023 6.8 ALBUMIN 06/04/2023 3.8 ALK PHOS 06/04/2023 237 (H) ALTv 06/04/2023 119 (H) AST(SGOT) 06/04/2023 59 (H) eGFR 06/04/2023 62.0 WBC 06/04/2023 9.34 RBC 06/04/2023 3.57 (L) HGB 06/04/2023 11.1 (L) HCT 06/04/2023 32.3 (L) MCV 06/04/2023 90.5 MCH 06/04/2023 31.1 MCHC 06/04/2023 34.4 RDW-SD 06/04/2023 41.2 RDW-CV 06/04/2023 12.4 PLT 06/04/2023 306 MPV 06/04/2023 10.5 NRBC/100 WBC 06/04/2023 0.0 NRBC i47454 <0.01 GRAN MAT (NEUT) % 06/04/2023 66.4 IMM GRAN % 06/04/2023 0.50 LYMPH % 06/04/2023 13.9 MONO % 06/04/2023 14.3 EOS % 06/04/2023 4.4 BASO % 06/04/2023 0.5 GRAN MAT x103(ANC) 06/04/2023 6.19 IMM GRAN r71900 0.05 LYMPH b09829 1.30 (L) MONO u52781 1.34 (H) EOS k89264 0.41 (H) BASO x65305 0.05 APPEARANCE 06/04/2023 Cloudy (A) COLOR 06/04/2023 Yellow PH 06/04/2023 8.0 SP GRAVITY 06/04/2023 1.006 GLU U QUAL 06/04/2023 Normal BLOOD 06/04/2023 3+ (A) KETONES 06/04/2023 Negative PROTEIN 06/04/2023 100 mg/dL (A) UROBILIN 06/04/2023 Normal BILIRUBIN 06/04/2023 Negative NITRITE 06/04/2023 Negative LEUK NELLY 06/04/2023 500/uL (A) RBC/HPF 06/04/2023 163 (H) WBC/HPF 06/04/2023 107 (H) BACTERIA 06/04/2023 Few (A) MUCOUS 06/04/2023 Moderate (A) SQ EPITH 06/04/2023 2 Admission on 06/01/2023, Discharged on 06/03/2023 Component Date Value WBC 06/01/2023 12.32 (H) RBC 06/01/2023 4.08 HGB 06/01/2023 12.7 HCT 06/01/2023 37.2 MCV 06/01/2023 91.2 MCH 06/01/2023 31.1 MCHC 06/01/2023 34.1 RDW-SD 06/01/2023 41.0 RDW-CV 06/01/2023 12.1 PLT 06/01/2023 273 MPV 06/01/2023 10.6 NRBC/100 WBC 06/01/2023 0.0 NRBC [id number]/01/2023 <0.01 GRAN MAT (NEUT) % 06/01/2023 75.9 IMM GRAN % 06/01/2023 0.30 LYMPH % 06/01/2023 10.6 MONO % 06/01/2023 12.3 EOS % 06/01/2023 0.5 BASO % 06/01/2023 0.4 GRAN MAT x103(ANC) 06/01/2023 9.36 (H) IMM GRAN c0681806/01/2023 0.04 LYMPH b01985 1.30 (L) MONO x3616706/01/2023 1.51 (H) EOS e42406 0.06 BASO q6340406/01/2023 0.05 APPEARANCE 06/01/2023 Cloudy (A) COLOR 06/01/2023 Peyton (A) PH 06/01/2023 6.0 SP GRAVITY 06/01/2023 1.011 GLU U QUAL 06/01/2023 Normal BLOOD 06/01/2023 2+ (A) KETONES 06/01/2023 5 mg/dL (A) PROTEIN 06/01/2023 100 mg/dL (A) UROBILIN 06/01/2023 4.0 mg/dL (A) BILIRUBIN 06/01/2023 Negative NITRITE 06/01/2023 Positive (A) LEUK NELLY 06/01/2023 250/uL (A) RBC/HPF 06/01/2023 90 (H) WBC/HPF 06/01/2023 >182 (H) BACTERIA 06/01/2023 Few (A) NA 06/01/2023 136 K 06/01/2023 4.3 CL 06/01/2023 102 CO2 TOTAL 06/01/2023 26 AGAP 06/01/2023 8 BUN 06/01/2023 23 GLUCOSE 06/01/2023 154 (H) CREATININE 06/01/2023 1.36 (H) TOTAL BILI 06/01/2023 0.9 CALCIUM 06/01/2023 9.3 T PROTEIN 06/01/2023 6.9 ALBUMIN 06/01/2023 4.2 ALK PHOS 06/01/2023 190 (H) ALTv 06/01/2023 62 (H) AST(SGOT) 06/01/2023 54 (H) eGFR 06/01/2023 45.0 LIPASE 06/01/2023 39 URINE CULTURE 06/01/2023 40,000 CFU/mL Ian tropicalis (A) Blood Culture-Aerobic 06/01/2023 No organisms isolated Blood Culture-Anaerobic 06/01/2023 No organisms isolated Blood Culture-Aerobic 06/01/2023 No organisms isolated Blood Culture-Anaerobic 06/01/2023 No organisms isolated POCT Glu (age>30days) 06/01/2023 98 POCT GLU 06/01/2023 98 POCT GLU 06/01/2023 193 (H) HGB A1C 06/02/2023 6.1 (H) CHOL 06/02/2023 99 (L) HDL 06/02/2023 44 (L) HDLC RATIO 06/02/2023 2.3 TRIG 06/02/2023 76 LDL CHOL 06/02/2023 40 VLDL 06/02/2023 15 TSH 06/02/2023 2.45 PHOSPHORUS 06/02/2023 3.4 MAGNESIUM 06/02/2023 1.8 NA 06/02/2023 140 K 06/02/2023 4.4 CL 06/02/2023 104 CO2 TOTAL 06/02/2023 26 AGAP 06/02/2023 10 BUN 06/02/2023 20 GLUCOSE 06/02/2023 91 CREATININE 06/02/2023 1.37 (H) CALCIUM 06/02/2023 9.5 eGFR 06/02/2023 44.6 WBC 06/02/2023 12.62 (H) RBC 06/02/2023 3.89 (L) HGB 06/02/2023 12.3 HCT 06/02/2023 36.5 MCV 06/02/2023 93.8 MCH 06/02/2023 31.6 MCHC 06/02/2023 33.7 RDW-SD 06/02/2023 42.3 RDW-CV 06/02/2023 12.3 PLT 06/02/2023 259 MPV 06/02/2023 10.8 NRBC/100 WBC 06/02/2023 0.0 NRBC [id number] <0.01 GRAN MAT (NEUT) % 06/02/2023 72.3 IMM GRAN % 06/02/2023 0.20 LYMPH % 06/02/2023 10.5 MONO % 06/02/2023 14.3 EOS % 06/02/2023 2.1 BASO % 06/02/2023 0.6 GRAN MAT x103(ANC) 06/02/2023 9.14 (H) IMM GRAN [id number] 0.03 LYMPH [id number] 1.32 MONO [id number] 1.80 (H) EOS [id number] 0.26 BASO [id number]/02/2023 0.07 APPEARANCE 06/02/2023 Cloudy (A) COLOR 06/02/2023 Yellow PH 06/02/2023 7.0 SP GRAVITY 06/02/2023 1.006 GLU U QUAL 06/02/2023 Normal BLOOD 06/02/2023 1+ (A) KETONES 06/02/2023 Negative PROTEIN 06/02/2023 30 mg/dL (A) UROBILIN 06/02/2023 Normal BILIRUBIN 06/02/2023 Negative NITRITE 06/02/2023 Negative LEUK NELLY 06/02/2023 500/uL (A) RBC/HPF 06/02/2023 8 (H) WBC/HPF 06/02/2023 >182 (H) BACTERIA 06/02/2023 Few (A) YEAST BUD 06/02/2023 2 (H) URINE CULTURE 06/02/2023 20,000 CFU/mL Ian tropicalis (A) POCT GLU 06/02/2023 192 (H) POCT GLU 06/02/2023 418 (H) PHOSPHORUS 06/03/2023 2.9 MAGNESIUM 06/03/2023 1.9 NA 06/03/2023 139 K 06/03/2023 4.0 CL 06/03/2023 103 CO2 TOTAL 06/03/2023 26 AGAP 06/03/2023 10 BUN 06/03/2023 26 (H) GLUCOSE 06/03/2023 196 (H) CREATININE 06/03/2023 1.13 (H) CALCIUM 06/03/2023 9.5 eGFR 06/03/2023 56.2 WBC 06/03/2023 12.67 (H) RBC 06/03/2023 3.33 (L) HGB 06/03/2023 10.5 (L) HCT 06/03/2023 30.8 (L) MCV 06/03/2023 92.5 MCH 06/03/2023 31.5 MCHC 06/03/2023 34.1 RDW-SD 06/03/2023 41.4 RDW-CV 06/03/2023 12.2 PLT 06/03/2023 197 MPV 06/03/2023 12.0 NRBC/100 WBC 06/03/2023 0.0 NRBC [id number]/03/2023 <0.01 GRAN MAT (NEUT) % 06/03/2023 83.1 IMM GRAN % 06/03/2023 0.20 LYMPH % 06/03/2023 4.6 MONO % 06/03/2023 11.3 EOS % 06/03/2023 0.5 BASO % 06/03/2023 0.3 GRAN MAT x103(ANC) 06/03/2023 10.53 (H) IMM GRAN [id number] 0.03 LYMPH [id number] 0.58 (L) MONO m60570 1.43 (H) EOS y64065 0.06 BASO [id number]/03/2023 0.04 POCT GLU 06/03/2023 330 (H) POCT GLU 06/03/2023 198 (H) POCT GLU 06/03/2023 219 (H) POCT GLU 06/03/2023 188 (H) Rhiannon Dimas RNSelect Medical Specialty Hospital - Southeast OhioFpqbei3655-47-35 16:30:00 Images from the original note were not included. Venipuncture collection performed by clean technique on the left anticubitus. Total of 1 attempts were made. Slight pressure and a bandage/dressing were applied to the site(s). The patient experienced no complications. The following specimens were processed according to instructions and sent to [facility] laboratories per lab order on today: LT BLUE SST 4 RED LAV 1 PPT DK GREEN (LiHep) DK GREEN (SodH) SIMON DK BLUE (K2) DK BLUE (S) ACD Blood Culture NIPT/NTD Patient has been identified by name and was provided with cup, antiseptic towelette, and clean catch instructions. 1 urine specimen(s) sent. Unpreserved Urine Culture 1 Aptima tube Other urine [facility] OhioIaxajg3200-55-05 10:03:12 Called pt due to scheduled appointment with urgent care at 0920 due to neck pain. As per Dr. Simons, urgent care is limited on what can be done and a scheduled appointment with PCP was made for 1130. No answer. Left voicemail to return call. Keisha Beckman RN 01/09/2024 10:42 AM Keisha Beckman [facility]Wvfnuk9408-35-20 10:18:24 Please review and sign if appropriate: Last office visit: 09/10/23 Next office visit: not scheduled Requested Prescriptions Pending Prescriptions Disp Refills meloxicam 15 mg tablet 30 tablet 1 Sig: Take 1 tablet by mouth in the morning. Last fill date: 09/10/23 Labs: CREATININE Date Value 09/10/2023 0.88 mg/dL 09/07/2013 0.69 MG/DL CREATININE-Q (mg/dL) Date Value 08/02/2016 0.70 Notes: Costochondritis, acute Lucia Gray [facility]2024-07-11 08:13:24 Access Center: [facility] Open Encounter Maintenance Chart Review: Patient was seen in Clinic for her 2 follow up vaccines. Nurse Note: RN closing encounter in [facility] r/t clinical action items completed. Colette Ray RN [facility] Access Center Triage Nurse Colette Ray [facility] HospitalFpqisc0989-27-79 10:27:39 Called pt and asked if she would like her MRX emailed, pt refused and would like it mailed instead. Will have Dr. Thurman sign MRX and will send it out today. Closing encounter. Peyton Elizalde 09/16/2023 10:28 AM [facility] Gyottx6096-77-18 10:22:22 Outcome Denied 09/15/23 This product is non formulary and not preferred. Preferred products include Accu-Chek blood glucose test strips. -Patient contacted and notified of denial. She will callback when home to report the type of glucometer currently being used. Lucia Gray [place] 146794-07-02 10:06:32 Copied from [facility] #[id number]. 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 Pt last communicated with on 07/31 and he stated that he would send her the rx through [employer] on 08/07. The pt has still not received her glasses rx and would like to have it mailed to her address at [address] , [address], [place] [address] . Please contact and advise. Deepthi ThayerSelect Medical Specialty Hospital - Southeast OhioTwalxb1370-67-29 11:48:51 KHARI for Glucoshine Test Strips initiated on 09/15/2023: Diego: [id number] PA Rx #: [id number] Will provide with updates as recd Lucia Gray [place] 146794-06-28 11:12:15 Left Vm for pt Angeline AckermanSelect Medical Specialty Hospital - Southeast OhioJnksut5381-01-03 10:55:04 I can remind her at the follow up apt [facility] OhioTnljud8451-80-15 10:26:07 Images from the original note were not included. Lucia Gray LVN You26 minutes ago (9:56 AM) PF Just a lab appt. She said she'd forget to come if it's not scheduled and requested a reminder call for this visit too. Thank you [facility] to schedule a lab appoinment. If patient calls back please help schedule a lab appointment around dec Babs [place] 567054-06-28 09:32:59 Does patient need to come in for office visit or just a lab appointment [place] 567054-06-27 15:22:21 Contact was made with Maritza Washington [...] in 6 weeks. Thank you. Lucia Gray [facility]2024-06-26 17:28:40 I sent levothyroxine 75mcg to start daily for pt thyroid. Take first thing in am on empty stomach nothing to eat for 30mins after. Repeat labs in 3 months, in addition we need to do more labs r/t elevated LFTS. [facility] OhioTzfpuu7468-55-69 10:00:00 Images from the original note were not included. Venipuncture collection performed by clean technique on the left anticubitus. Total of 1 attempts were made. Slight pressure and a bandage/dressing were applied to the site(s). The patient experienced no complications. The following specimens were processed according to instructions and sent to [facility] laboratories per lab order on 09/10/2023 : [...] Aptima tube Other urine T [facility] OhioWwwvrd5014-12-05 18:27:14 LM for pt to return call to [facility] regarding next two rabies vaccine appt dates to insure pt has correct dates in her notes. Pt should RTC for vaccination on 09/09/2023 and 09/16/2023. [facility] OhioRfnzpw1345-49-97 12:48:05 Spoke to pt by phone re: nausea and tingling feet post Rabavert injection #2. Informed pt that nausea is a common side effect. Pt instructed to go to ER for worsening tingling in feet. Pt verbalized understanding. Pt is scheduled for RabAvert injection #3 on 09/09/23. Norah Chery RN 09/06/2023 12:52 PM Norah Chery RNSelect Medical Specialty Hospital - Southeast OhioDgwdgw6625-60-66 09:13:06 Maritza Washington is a 58 year [...] connected with in the access center. Holly VegaSelect Medical Specialty Hospital - Southeast OhioAzlxgq5235-51-29 13:59:07 Notified pt that she may receive her remaining rabies vaccines in [facility]. Yodit Roca [facility] HospitalLmgktf0063-31-56 13:41:01 Copied from [facility] #[id number]. Topic: Appointment - Appointment Request >> Sep 03, 2023 1:40 PM Patient Infantry Unit Leader wrote: Maritza Washington is a 58 year old female and is calling to find out if the [facility] urgent care has the rabies vaccine. She is needing her 2nd dose and had her first dose yesterday. Please advise as the pt needs to know before tomorrow & if we don't have the vaccine she wants to know where she can go. Bhanu AdamsSelect Medical Specialty Hospital - Southeast OhioEgutjg4772-22-04 20:44:05 Pt states she has to leave right now. Pt left prior to vitals reassessment and after shot reassessment. Pt given Rx papers and discharge paperwork. Pt left ambulatory by self. [facility] OhioNkpdzo3903-53-12 20:42:59 Patient states "I need to go right now." Unable to get discharge vitals. [place] 026734-06-18 19:33:49 Patient arrived ambulatory to ED c/o a raccoon that attacked her this AM around 0700 at home. Patient has scratch kennedy to mid abd. Requesting rabies vaccine. Went to ER this AM and got pain medication and TDAP. Yvette Hodges [facility] - Xxbpkv8187-07-39 19:23:00 [facility] Emergency Department Note Patient Name: Maritza Washington Date of : 1965 58 year old female Treatment Room: [place] [address] Primary Care Physician: Davy Manley Patient Escorted [...] her lower abdomen. History provided by: Patient duct layer helper used: No Past Medical History/Immunizations: Past Medical [...] Left 06/26/2017 Surgeon: Jarred Jara MD; [facility] COLONOSCOPY Left 12/06/2020 Surgeon: Abdelrahman Madden MD; [facility] COLPOSCOPY benign per pt. normal pap since CYSTOSCOPY WITH INSERTION STENT URETER (SHX) Right 06/02/2023 Surgeon: Carlos Gomes MD; [facility] ESOPHAGOGASTRODUODENOSCOPY N/A 06/27/2016 Surgeon: Jarred Jara MD; [facility] ESOPHAGOGASTRODUODENOSCOPY N/A 06/26/2017 Surgeon: Jarred Jara MD; [facility] ESOPHAGOGASTRODUODENOSCOPY Left 12/06/2020 Surgeon: Abdelrahman Madden MD; [facility] HYSTERECTOMY kept ovaries; dysmenorrhea RETROGRADE PYELOGRAM Right 06/02/2023 Surgeon: Carlos Gomes MD; [facility] TRIGGER FINGER RELEASE Left 05/27/2017 Surgeon: Prashant El MD; [facility] TUBAL LIGATION URETEROSCOPIC STONE MANIPULATION Right 06/12/2023 Surgeon: Carlos Gomes MD; [facility] Review of Systems: Review of Systems Constitutional: [...] with instructions to follow up at the [facility] for her following [...] which have NOT CHANGED BLOOD SUGAR DIAGNOSTIC (MerlinTOUCH ULTRA TEST) STRIP Use to test glucose once a day E11.9 GLIPIZIDE 10 MG TABLET Take 1 tablet by mouth in the morning. IBUPROFEN 800 MG TABLET Take 1 tablet by mouth every 6 (six) hours as needed for Pain (scale 4-6) for up to 30 doses. LANCETS (MerlinTOUCH DELICA LANCETS) 30 GAUGE MISC Use to [...] Gleason MD 09/02/231946 Jose Gleason MD 09/02/232009 [facility] OhioSdetrq3014-96-47 15:48:51 Spoke to pt informed her: Please inform patient that XRAY is negative for any acute fracture, they see a old fracture to left clavicle and an age indeterminate fracture to left 6th rib, meaning likely old injury. Please have her follow up with PCP Valentina Abraham MASelect Medical Specialty Hospital [facility] OhioGrptqc2312-94-69 15:34:17 Maritza Washington is a 58 year old female patient returning missed call for results. Would like a call back to go over them. Please advise. Shane BoldenAtrium Health Wake Forest BaptistBffirw4005-36-60 19:09:00 [facility] EMERGENCY PROVIDER REPORT REPORT#:[id number] REPORT STATUS: Signed DATE:08/05/23 TIME: 1908 PATIENT: MARITZA WASHINGTON UNIT #: [id number] ROOM/BED: AGE: 58 SEX: F PCP PHYS: Jovana Weber MD SERVICE AUTHOR: Parker Benitez MD * [...] a move. General Initial Greet Date/Time 08/05/23 185 Presentation Chief Complaint R thumb pain Review [...] Referrals Provider Referral: Candace Valle MD Address: [address] [place] [address] at [address] RPT #:[id number] END OF REPORTTAAPS6102-88-70 16:15:33 I will print and transmit rx on Friday first thing. I will MyChart Mrs. Washington to let her know. Thanks, Dr. Thurman [facility] OhioFtxubn7007-29-46 14:06:00 Copied from [facility] #[id number]. Topic: Clinical - Medical Advice >> July 31, 2023 2:04 PM Patient Infantry Unit Leader wrote: Pt is calling to have their eye glasses rx emailed to [email or web address]. Pt missed placed their rx and need a new one emailed to them. Please contact and advise. Deepthi ThayerSelect Medical Specialty Hospital - Southeast OhioDsctub1288-85-40 13:55:32 Procedure was cancelled. Karyna Martínez RNSelect Medical Specialty Hospital - Southeast OhioWbdxeq1453-90-92 13:04:44 LVM for stent removal appointment with Dr. Gomes for 07/[address] Gomes ok to OB Latrice Sow [facility]2024-04-22 11:01:24 Friday Thanks [facility]2024-04-22 10:47:24 Please advise which date to OB for Stent removal to offer at [facility] 07/10 at 3pm 07/20 at 3pm 07/24 at 1pm [place] 886164-04-22 10:47:06 Kuponjot message sent of Dr. Gomes response. Attempted to reach the patient for a second time and LVM. T Lennie Chau [facility]2024-04-22 09:56:13 Please offer RTC and removal stent and no stone seen, could be concealed by stent Stent needs to be removed given that it seems encrusted, even after removal of stent, she UTI/ sepsis may recur due to ureteral stricture and HN. Chronic pain secondary to multiple conditions Patient can also consider second opinion with another provider at [facility] or outside Please ask patient to RTC with her sister/ family member Thanks [place] 886164-04-22 09:40:03 Appt canceled and LVM for patient to follow up with Dr. Gomes since the patient does not want to be seen by Dr. Florez. Message routed to Dr. Gomes for notification [facility] OhioTqideo2079-31-61 09:27:58 Copied from [facility] #[id number]. Topic: Appointment - Cancel Appointment >> Jul 07, 2023 9:26 AM Patient Infantry Unit Leader wrote: Maritza Washington Pt calling to cancel procedure scheduled for 07/08/23 due to pt stating that She does not want to be seen By Dr. Florez. Please cancel per pts request and advise. PH: Sania SeePremier Health Miami Valley Hospital NorthLgkmai6242-93-27 16:33:44 Spoke with patient and gave FLOOR ASSOCIATE comments. Patient verbalized understanding. Next procedure date is not until 07/07/2023. Patient requesting sooner appt and requesting to speak with Dr. Florez about "the state" of her kidneys. Lennie Chau [facility]2024-04-10 16:14:53 Copied from [facility] #[id number]. Topic: Clinical - Medical Advice >> Jun 25, 2023 4:14 PM Patient Infantry Unit Leader wrote: Maritza Washington is a 58 year old female returning a call from the clinic regarding CT results. Please f/u Work Phone Not on file. Tiffany ValerioMercy Health Tiffin HospitalQzkmaw4176-59-37 15:48:44 LVM to call back regarding CT results. [facility] OhioWzszmx0113-44-24 15:46:52 Spoke with patient and notified her that her surgery was canceled and that we will follow up after her CT is resulted. Patient verbalized understanding. Lennie Chau [facility]2024-04-05 14:43:38 Copied from [facility] #[id number]. Topic: Customer Service - Missed Call from Provider >> Jun 20, 2023 2:42 PM Patient Infantry Unit Leader wrote: Marizta Washington is a 58 year old female Patient stating she is returning a call from [facility]. [phone] (home) Bethany PadillaSelect Medical Specialty Hospital - Southeast OhioVjltxe8076-37-95 14:24:19 Call patient, regarding her concerns, Patient did not answer,left voicemail for patient to return call here at the clinic. [facility] [address] [place], [place] [address] P [phone]/F [phone] Con Walsh [facility] CenterGbuzbr9105-70-44 13:04:14 Copied from [facility] #[id number]. Topic: Clinical - Medical Advice >> Jun 20, 2023 1:03 PM Patient Infantry Unit Leader wrote: Maritza Washington is a 58 year old female Patient calling back following up on her request that she wants to talk to Dr Florez. Advised he is in surgery today. He is aware of her request [phone] (home) [facility] OhioGatpeb7065-05-40 13:01:08 Copied from [facility] #[id number]. Topic: Clinical - Medical Advice >> Jun 20, 2023 12:51 PM Patient Infantry Unit Leader wrote: Maritza Washington is a 58 year old female Patient calling back following up on her request that she wants to talk to Dr Florez. Advised he is in surgery today. He is aware of her request [phone] (home) Bethany PadillaSelect Medical Specialty Hospital - Southeast OhioOgeivp2475-18-10 16:13:26 MD aware and placed CT orders. Patient aware and was transferred to radiology to schedule. Patient is requesting a call from MD today if possible to go over surgery and what to expect. Lennie Chau [facility]2024-04-04 11:26:52 Copied from [facility] #[id number]. 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 Maritza has a concern regarding her kidney that has possibly doubled in size. Please f/u Work Phone Not on file. Tiffany ValerioMercy Health Tiffin HospitalGsjyyt2809-18-46 11:25:53 Copied from [facility] #[id number]. 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 Maritza has a concern regarding her kidney that has possibly doubled in size [facility] OhioIezits1682-86-78 09:46:55 Patient would like more information on upcoming [facility] procedure and would like to get another CT A/P done before the surgery on Friday. Please advise. [place] 886164-04-04 09:28:23 LVM for patient to call back regarding request [place] 886164-04-04 08:24:24 Maritza Washington is a 58 year old female patient calling to speak with clinic regarding questions about surgery and wanting a CT prior to surgery. Please call [phone] [facility] Arlyn GoldmanPremier Health Miami Valley Hospital NorthDguaei5978-51-38 16:15:00 Addended by: MIKAYLA FLOREZ on: 06/19/2023 04:12 PM Modules accepted: Orders [facility]2024-04-02 15:24:40 Pain is most likely related to stent spasms rather than ureteral stone, I added Gabapentin in addition to regular OTC analgesia , Tamsulosin and Ditropan I expect pain to improve with the above combination [place] 886164-04-02 14:12:35 Spoke to patient,and she stated that she is still having pain( pain level is 5). Patient states that pain medication that was given at discharged is not helping with her pain.Patient is not having any fever or chill. She is increasing her water intake. Con Walsh MASelect Medical Specialty Hospital [facility] Southeast OhioEbmwfk0911-30-23 12:07:23 Pt requesting to speak to nurse regarding pain due to stone. Please F/u Edwinkarlie DiornoraSelect Medical Specialty Hospital - Southeast OhioMqiuow6492-89-62 17:42:00 Regardinyo female- message from doc ----- [...] he messaged in the encounter Pia Pitt RNSelect Medical Specialty Hospital - Southeast OhioPjnnsj0857-78-10 17:42:00 Images from the original note were not included. Maritza Washington is a 58 year old female, who is calling because she was expecting a call back from the provider. See below message from provider for today: Carlos Gomes MD to Azeb Pierce V RN 06/13/23 4:02 PM Note Mrs Washington [...] 100.0 oral. Tramadol 50 mg as prescribed. 1756 Continue with the OTC medication. If having [...] pain medications Protocols used: Post-Op Symptoms and Rbcrghpbm-[id number] T [facility] OhioQkzhwn9173-39-88 16:02:30 Mrs Washington Thank you for your [...] Thanks Carlos grant MD T [facility] OhioKsaagh8886-97-62 14:11:03 Patient had procedure yesterday. Will close this encounter. A separate encounter has been sent to provider. Azeb Pierce RN Azeb Jc [facility] - Ebtmev6462-36-11 14:01:12 Returned patient's call. Patient stated that [...] Will route. Azeb Pierce RN Azeb Jc RNUT - Iziqcm5695-49-29 13:23:44 Maritza Washington is a 58 year old female Pt calling requesting update [phone] (home) Jf Mari - Bgcpty4063-93-45 09:12:12 Copied from [facility] #[id number]. Topic: Clinical - Medical Advice >> Jun 13, 2023 9:09 AM Patient Infantry Unit Leader wrote: Maritza Washington is a 58 year old female is calling to speak with someone from Dr. Gomes staff or nurse due to pain from kidney stones. 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 PH:[phone] [address] [facility] Eqmyyd4967-48-64 16:15:17 Copied from CRM #[id number]. Topic: Clinical - Medical Advice >Jun 09, 2023 4:14 PM Patient Infantry Unit Leader wrote: Maritza Washington is a 58 year old female calling to request assistance with why the procedure has been schd on 06/11 versus 06/12; she would also like the procedure explained, in depth. Please expedite f/u Work Phone Not on file. [facility] Wkgcvw2987-03-18 10:59:55 Copied from CRM #[id number]. Topic: Clinical - Medical Advice >> Jun 09, 2023 10:58 AM Patient Infantry Unit Leader wrote: Pt calling states has has questions and concerns about her procedure 06/11. Pt also would like to know about the procedure date. She thought it was going to be 06/12 Please call pt Work Phone Not on file. Devora Hodges [facility] [id number] 10:42:20 Patient was identified with name and [...] between 1 pm and 4 pm. Location [facility] [address] [place] [address] DOS 3-28-24 was discussed with patient. Patient v/u. [facility]hlvgp9091-34-42 08:51:22 Call patient to follow up with he symptoms, Patient seem upset because she stated that she was expecting for a call back yesterday. He stated she went back to the ER and feeling better now. With no pain,fever, or chill. Con Walsh [facility] OhioHgaomi0725-33-96 22:21:42 Pt discharged to home, pt given printed and verbal discharge instructions. Patient verbalized understanding and able to teach back discharge instructions Pt awake alert oriented x 4, resp reg unlabored, skin w/d, color appropriate for race, moves all ext well. Advised to seek medical attention for new/prolonged/worsening of symptoms, pt ambulated from unit with steady gait, in no apparent distress. T Maritza Macias [facility]Edppoh2139-81-18 21:23:44 Maritza [place] is a 58 year old female presenting to the ER after spiking fever at home along with elevated HR and HTN. Patient reports being discharged from the hospital yesterday in which she had a stent put in for a kidney stone. A&Ox4, VSS, denies SOB, N/V, dizziness, [place]. Respirations unlabored, equal chest rise and fall noted. [facility]2024-03-20 17:14:48 Maritza [place] is a 58 year old female Subjective: Pt ambulatory into triage with c/o fever, HTN, and elevated HR starting last night. Pt reports that she was discharged from hospital yesterday after having stent placed for kidney stone. Pt denies chest pain, SOB, cough, n/v/d. Objective: Pt is alert and oriented x4. Respirations even and unlabored. NAD. Eddi Mckeon [facility] - Otxytu3725-71-45 13:06:54 TRANSITIONAL CARE MANAGEMENT ASSESSMENT 06/04/2023 Maritza [place] [id number] Maritza [place] is a 58 year old /White female was admitted on 06/01/23 to [facility] [place] [address]. She was discharged on 06/03/23 with discharge disposition of HR- Routine Discharge. Admitting Physician: Calvin Nova Discharge Diagnosis: Pyelonephritis KRISTOPHER (acute kidney injury) Nephrolithiasis Fatigue Anemia Elevated LFTs Linked Episodes Type: Episode: Status: Noted: Resolved: Last update: Updated by: TRANSITION OF CARE TCM Active 06/03/2023 06/04/2023 1:01 PM Neo Farrell RN Comments: TCM Ndl-tlte-ls-face outreach documentation: Discharge Assessment Chart Assessed: 06/04/23 [...] with the names or descriptions of any asad-hzq-ywmpjii or supplements you are currently taking?: Yes [...] Phone 07/10/2023 1:40 PM Bob Min MD [facility] [phone] Neo Farrell [facility] HospitalOcmary6137-47-54 10:10:45 Copied from [facility] #[id number]. Topic: Clinical - Medical Advice >> Jun 04, 2023 10:05 AM Patient Infantry Unit Leader wrote: Patient calling was currently released from the hospital on yesterday mention since she has been home twice she has been running a fever of 101 and is having right side pain Carlie CliffordSelect [facility] OhioFqpusv1006-75-17 16:09:02 Problem: Discharge Planning Goal: Adequate for [...] Josie Osullivan RN Outcome: Progressing as expected Josie Osullivan [facility] HospitalNpdkkc2140-53-06 13:35:45 Problem: Discharge Planning Goal: Adequate for discharge Outcome: Progressing as expected Goal: Effective communication Outcome: Progressing as expected Problem: Pain Goal: Control of pain at or below patient's documented comfort goal Outcome: Progressing as expected Goal: Reduction in pain sensation Outcome: Progressing as expected Problem: Infection Risk Goal: Absence of infection Outcome: Progressing as expected [facility] OhioJvucct7113-61-71 01:55:35 Problem: Discharge Planning Goal: Adequate for discharge Outcome: Progressing as expected Goal: Effective communication Outcome: Progressing as expected Problem: Pain Goal: Control of pain at or below patient's documented comfort goal Outcome: Progressing as expected Goal: Reduction in pain sensation Outcome: Progressing as expected Problem: Infection Risk Goal: Absence of infection Outcome: Progressing as expected Elsy Chaudhry [facility] HospitalTzwxao5655-50-41 15:38:16 Problem: Discharge Planning Goal: Adequate for discharge Outcome: Progressing as expected Goal: Effective communication Outcome: Progressing as expected Problem: Pain Goal: Control of pain at or below patient's documented comfort goal Outcome: Progressing as expected Goal: Reduction in pain sensation Outcome: Progressing as expected Problem: Infection Risk Goal: Absence of infection Outcome: Progressing as expected Sruthi Larsen [facility] HospitalIosgoo4358-94-27 02:17:53 Problem: Discharge Planning Goal: Adequate for discharge Outcome: Progressing as expected Goal: Effective communication Outcome: Progressing as expected Problem: Pain Goal: Control of pain at or below patient's documented comfort goal Outcome: Progressing as expected Goal: Reduction in pain sensation Outcome: Progressing as expected Problem: Infection Risk Goal: Absence of infection Outcome: Progressing as expected [place] [address]-03-17 19:43:14 Report called to for pt transport to the floor Parker Narayanan [place] [address]-03-17 18:07:04 Pt given meal tray T [place] [address]-03-17 18:04:08 Pt meal tray ordered T [place] [address]-03-17 16:40:16 MD at bedside T [place] [address]-03-17 16:23:22 Pt requesting pain medications at this time, Admitting MD aware, orders to follow. Kellee Trejo [place] 832004-03-17 15:41:27 MD at bedside [place] [address]-03-17 13:26:43 Pt ambulatory to the bathroom [facility] OhioKlyzvx1801-92-91 11:16:30 Pt ambulatory to bathroom to provide urine specimen at this time. [facility]2024-03-17 11:12:44 Maritza [place] is a 58 year old female presenting to the ED with c/o right sided flank pain since Friday. Reports she was diagnosed with kidney stones at [facility] ED. Endorses burning with urination. Denies fevers. AOX4, NAD, VSS Took Tramadol this morning. 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 normal pap since ESOPHAGOGASTRODUODENOSCOPY N/A 06/27/2016 Surgeon: Jarred Jara MD; Location: [place] [facility] ESOPHAGOGASTRODUODENOSCOPY N/A 06/26/2017 Surgeon: Jarred Jara MD; Location: [place] [facility] ESOPHAGOGASTRODUODENOSCOPY Left 12/06/2020 Surgeon: Abdelrahman Madden MD; Location: [place] [facility] HYSTERECTOMY kept ovaries; dysmenorrhea TRIGGER FINGER RELEASE Left 05/27/2017 Surgeon: Prashant El MD; Location: [place] [facility] TUBAL LIGATION Review of Systems: Review of [...] of the lung bases. RL: 2601 AFC: 68353 ABDOMEN PELVIS WO CONTRAST Final Result EXAM: [...] 0.0 0.0 - 10.0 /100 WBCs NRBC x103<0.01 10*3/?L GRAN MAT (NEUT) % 75.9 % IMM GRAN % 0.30 % LYMPH % 10.6 % MONO % 12.3 % EOS % 0.5 % BASO % 0.4 % GRAN MAT x103(ANC) 9.36 (*) 1.88 - 7.09 10*3/uL IMM GRAN x1030.04 0.00 - 0.06 10*3/uL LYMPH x1031.30 (*) 1.32 - 3.29 10*3/uL MONO x1031.51 (*) 0.33 - 0.92 10*3/uL EOS x1030.06 0.03 - 0.39 10*3/uL BASO x1030.05 0.01 - 0.07 10*3/uL URINALYSIS - Abnormal [...] BACTERIA Few (*) Negative COMP. METABOLIC PANEL (47079) - Abnormal NA 136 135 - 145 [...] CBC WITH DIFF URINALYSIS COMP. METABOLIC PANEL (05167) LIPASE URINE CULTURE Glycosylated Hemoglobin (A1C) Lipid [...] sufficient AdmissionCare documentation entered by: Rc Peng [facility], 27th edition, Copyright ? 2022 [facility] [employer] [facility] All Rights Reserved. 8537-31-04P20:58:31-05:00 ED COURSE Diagnosis/Impression as of 06/01/23 1844 [...] by mouth at bedtime. BLOOD SUGAR DIAGNOSTIC ([employer] ULTRA TEST) STRIP Use to test glucose [...] tablet by mouth daily with breakfast. LANCETS ([employer] DELICA LANCETS) 30 GAUGE MISC Use to [...] No medications on file Follow-[facility]: [facility]Prhthr6049-63-85 11:10:00 Images from the original note were not included. I have no personal relationship with this patient nor did I see or evaluate them. My only involvement in their care was to review culture or radiology results and contact them if changes to medication or further imaging or evaluation is warranted. Procedure Component Value Units Date/Time URINE CULTURE [[id number]] (Abnormal) Collected: 06/01/23 1131 Lab Status: Final result Specimen: URINE, CLEAN CATCH Updated: 06/02/23 1300 URINE CULTURE 40,000 CFU/mL Ian tropicalis Abnormal Pt is currently admitted and being managed by the hospitalist. No further intervention needed at this time. Nicolle Sultana, MSN, PIPE FITTINGS MOLDER,FORCE ADJUSTMENT SUPERVISOR-C Irasema Sultana FNP 06/03/23 0801 Associated attestation - Bradly Stanton DO - 06/03/2023 8:13 AM CDT I was available for consultation at all times during the patient encounter and present in the Emergency Department providing general supervision. However, I did not see or evaluate the patient. Patient seen and evaluated by JUANITA. [facility] Emergency PhysicianSelect [facility]ty [facility] OhioVlvsen7673-59-01 11:10:00 AdmissionCare Guideline: Renal Colic / Kidney [...] sufficient AdmissionCare documentation entered by: Rc Peng [facility] [employer], 27th edition, Copyright ? 2022 [facility] [employer] [facility] All Rights Reserved. 1898-53-21D06:58:31-05:00 [facility] OhioSqlfkg3623-32-08 03:08:00 [facility] ([facility]) EMERGENCY PROVIDER REPORT REPORT#:[id number] REPORT STATUS: Signed DATE:05/30/23 TIME: 0308 PATIENT: MARITZA [place] UNIT #: [id number] ROOM/BED: AGE: 58 SEX: F PCP PHYS: [...] 05/29 0443 O2 Delivery Room air 05/29 442 Pulse 80 05/29 0443 Resp 17 05/293 Temp 36.9 05/29 0254 Review of Vital [...] (5.0 - 8.0) 7.0 POC Ur Specif [place] (1.001 - 1.035) 1.015 POC Urine Protein [...] 05/29 Sodium Chloride 10 ML IV 05/29 437 0439 Central Nervous System Agents Sig/Tee Start time Last Medication Dose Route Stop Time Status Admin Morphine Sulfate 6 MG X1ED STA 05/29 0307 DC 05/29 IV 05/30 307 0311 Electrolytic, Caloric, And Letha Sig/Tee Start time Last Medication Dose Route Stop Time Status Admin Sodium Chloride 1,000 ML X1ED STA 05/298 DC 05/29 IV 05/29 308 0311 Gastrointestinal Drugs Sig/Tee Start time Last Medication Dose Route Stop Time Status Admin Ondansetron HCl 4 MG X1ED STA 05/29 0308 DC 05/29 IV 05/29 030 0312 Patient Discharge Departure Vital Signs/Condition Vital Signs First Documented: Result Date Time Pulse Ox 98 05/29 0254 B/P 180/89 05/29 0254 B/P Mean 119 05/29 0254 O2 Delivery Room air 05/29 025 Temp 36.9 05/29 0254 Pulse 89 05/29 0254 Resp 17 05/29 0254 Last Documented: Result Date Time Pulse Ox 100 05/29 0443 B/P 165/85 05/29 0443 B/P Mean 111 05/29 0443 O2 Delivery Room air 05/29 0443 Pulse 80 05/29 0443 Resp 17 05/29 0443 Temp 36.9 05/29 0254 All vital signs available at the time [...] MD Follow-Up: 1 Week Notes: urologist Address: [address] [place] [address] Provider Referral: Jarred Cuevas MD Follow-Up: 1 Week Notes: urologist Address: [address] [place] [address] Departure Forms LARRY PCP LIST at [address] [facility] #:[id number] END OF REPORTHCACL
[2024-06-09] MEDS ORDERED: IBUPROFEN 400 MG TAB ONE (17:34)
[2024-06-09] MEDS ORDERED: ACETAMINOPHEN 500 MG TAB ONE (17:34)
--- NOTE | 2024-06-09 18:10 | RAD REPORT ---
EXAM:Ankle Right 3 View CLINICAL HISTORY: Ankle pain FINDINGS: Mildly displaced fracture base fifth metatarsal. No dislocation.
--- NOTE | 2024-06-09 18:15 | EDPHYS ---
Physician Documentation [facility] Name: Maritza [place] Age: 59 yrs Sex: Female : 1965 Arrival Date: 06/09/2024 Time: 16:20 Bed 3 Private MD: ED Physician Ignacio Milton HPI: 06/09 16:54 This 59 yrs old Female presents to ER via Wheelchair with complaints of Ankle ec2 Injury. 16:54 Patient arrives today for evaluation of injuring the right ankle. Reports that she ec2 twisted her ankle with several hours ago. Reports that she is having pain with ambulation. Denies any other concerns.. Historical: - Allergies: 16:51 Sulfa (Sulfonamide Antibiotics); iw 16:51 Vicodin; iw - Home Meds: 16:51 glipizide 5 mg Oral tablet 1 tab daily [Active]; levothyroxine oral [Active]; iw - PMHx: 16:51 Colorectal CA (remission); diabetes mellitus; Hypertensive disorder; Hypothyroidism; iw - PSHx: 16:51 Cholecystectomy; colon resection; iw - Immunization history:: Adult Immunizations unknown. - Infectious Disease History:: Denies. - Social history:: Smoking status: Patient denies any tobacco usage or history of. ROS: 16:54 Constitutional: as per hpi ec2 Exam: 16:54 Constitutional: GEN: NAD Head: atraumatic Eyes: EOMI Ears: External ears are ec2 normal. CV: regular rate LUNGS: no respiratory distress ABD: non-distended SKIN: no evidence of rashes MSK: Right ankle with TTP to the medial and lateral malleolus, trace effusion appreciated, intact distal neurovascular status noted. Vital Signs: 16:50 BP 135 / 81; Pulse 96; Resp 16; Temp 98.3; Pulse Ox 97% ; Weight 58.97 kg; Height 4 ft. iw 11 in. ; Pain 10/10; 19:26 BP 127 / 86; Pulse 89; Resp 18; Temp 97.9; Pulse Ox 98% on R/A; ph 16:50 Body Mass Index 26.26 (58.97 kg, 149.86 cm) iw 16:50 Pain Scale: Adult iw MDM: 16:52 Medical Screening Exam initiated ec2 16:54 Data reviewed: vital signs, nurses notes. ED course: Patient arrives today for ec2 evaluation of a right ankle injury. Emanation yields MSK findings as above. Will obtain radiograph. Suspect ankle sprain. Additionally considered fracture. 06/09 16:52 Order name: Ankle Right 3 View XRAY; Complete Time: 18:12 ec2 06/09 18:14 Order name: Walking boot; Complete Time: 18:57 ec2 Administered Medications: 17:39 Not Given (Patient Refused; wants something stronger): [id number] mg PO once ll1 17:39 Not Given (Patient Refused; wants something stronger): [id number] mg PO once ll1 18:57 Drug: Acetaminophen-Codeine PO (300 mg-30 mg) 1 tablet PO once; RASS on ADMIN: Combtv4, ph Very Agttd3, Agttd2, Rstlss1, AlertClm0, Drwsy-1, Lt Sdtn-2, Mod Sdtn-3, Dp Sdtn-4, UnArsble-5 Route: PO; 19:27 Follow up: Response: No adverse reaction ph 18:57 Drug: Ketorolac IM 30 mg IM once Route: IM; Site: right deltoid; ph 19:27 Follow up: Response: No adverse reaction ph Disposition Summary: 06/09/24 18:15 Discharge Ordered Notes: Location: Home ec2 Condition: Stable ec2 Diagnosis - Fifth Metatarsal Fracture ec2 Followup: ec2 - With: Silviano Jmaison MD - When: - Reason: Recheck today's complaints Discharge Instructions: - Discharge Summary Sheet ec2 - Metatarsal Fracture ec2 Forms: - Work release form vc1 - Medication Reconciliation Form ec2 - Antibiotic Education ec2 - Prescription Opioid Use ec2 - Patient Portal Instructions ec2 - Leadership Thank You Letter ec2 Prescriptions: - Tylenol-Codeine #3 300mg-30mg Oral tablet - take 1 tablet ORAL route every 4 hours As needed; 16 tablet; Refills: 0, ec2 Product Selection Permitted Signatures: Dispatcher [employer] Janay Santos RN BETH Patricia Marinelli RN RN Ignacio Lema MD MD ec2 Kevin Montero RN ll1
--- NOTE | 2024-06-09 18:15 | ER ---
Nurse's Notes [facility] Name: Maritza [place] Age: 59 yrs Sex: Female : 1965 Arrival Date: 06/09/2024 Time: 16:20 Bed 3 Private MD: Diagnosis: Fifth Metatarsal Fracture Presentation: 06/09 16:50 Chief complaint: Patient states: twisted right ankle about an hour ago. Coronavirus iw screen: At this time, the client does not indicate any symptoms associated with coronavirus-19. Ebola Screen: No symptoms or risks identified at this time. Initial Sepsis Screen: Does the patient meet any 2 criteria? No. Patient's initial sepsis screen is negative. Does the patient have a suspected source of infection? No. Patient's initial sepsis screen is negative. Risk Assessment: Do you want to hurt yourself or someone else? Patient reports no desire to harm self or others. Onset of symptoms was June 09, 2024. 16:50 Method Of Arrival: Wheelchair iw 16:50 Acuity: PAYAM 4 iw Historical: - Allergies: 16:51 Sulfa (Sulfonamide Antibiotics); iw 16:51 Vicodin; iw - Home Meds: 16:51 glipizide 5 mg Oral tablet 1 tab daily [Active]; levothyroxine oral [Active]; iw - PMHx: 16:51 Colorectal CA (remission); diabetes mellitus; Hypertensive disorder; Hypothyroidism; iw - PSHx: 16:51 Cholecystectomy; colon resection; iw - Immunization history:: Adult Immunizations unknown. - Infectious Disease History:: Denies. - Social history:: Smoking status: Patient denies any tobacco usage or history of. Screenin:58 [facility] ED Fall Risk Assessment (Adult) History of falling in the last 3 months, ph including since admission Yes- single mechanical fall (1 pt) Confusion or Disorientation No (0 pts) Intoxicated or Sedated No (0 pts) Impaired Gait Yes (1 pt) Mobility Assist Device Used No (0 pt) Altered Elimination No (0 pt) Score/Fall Risk Level 0 - 2 = Low Risk Oriented to surroundings, Maintained a safe environment, Hourly rounding (assess needs \\T\\ fall precautionary measures) done. Abuse screen: Denies threats or abuse. Denies injuries from another. Nutritional screening: No deficits noted. Tuberculosis screening: No symptoms or risk factors identified. Assessment: 17:20 Reassessment: "I've been waiting 15 minutes for a x-ray!" Informed that x-ray takes ll1 longer than 15 minutes. "Well I need some pain medicine then." Will inform MD that saw her that she would like pain medication. 17:38 Reassessment: x-ray being done. Refused Tylenol and Motrin., States she would like ll1 something stronger. Dr. Milton informed. Vital Signs: 16:50 BP 135 / 81; Pulse 96; Resp 16; Temp 98.3; Pulse Ox 97% ; Weight 58.97 kg; Height 4 ft. iw 11 in. ; Pain 10/10; 19:26 BP 127 / 86; Pulse 89; Resp 18; Temp 97.9; Pulse Ox 98% on R/A; ph 16:50 Body Mass Index 26.26 (58.97 kg, 149.86 cm) iw 16:50 Pain Scale: Adult iw ED Course: 16:24 Patient arrived in ED. im 16:38 Ignacio Milton MD is Attending Physician. ec2 16:51 Triage completed. iw 18:05 Ankle Right 3 View XRAY In Process Unspecified. EDMS 18:15 Silviano Jamison MD is Referral Physician. ec2 18:30 Arm band placed on Patient placed in an exam room, on a stretcher. ll1 18:35 Patricia Marinelli, RN is Primary Nurse. ph 18:58 No provider procedures requiring assistance completed. Patient did not have IV access ph during this emergency room visit. 3D boot applied to right foot. 19:22 Primary Nurse role handed off by Patricia Marinelli, RN rv1 19:26 Patricia Marinelli, RN is Primary Nurse. ph 19:26 Patient has correct armband on for positive identification. Bed in low position. Call ph light in reach. Side rails up X 1. Pulse ox on. NIBP on. Administered Medications: 17:39 Not Given (Patient Refused; wants something stronger): [id number] mg PO once ll1 17:39 Not Given (Patient Refused; wants something stronger): [id number] mg PO once ll1 18:57 Drug: Acetaminophen-Codeine PO (300 mg-30 mg) 1 tablet PO once; RASS on ADMIN: Combtv4, ph Very Agttd3, Agttd2, Rstlss1, AlertClm0, Drwsy-1, Lt Sdtn-2, Mod Sdtn-3, Dp Sdtn-4, UnArsble-5 Route: PO; 19:27 Follow up: Response: No adverse reaction ph 18:57 Drug: Ketorolac IM 30 mg IM once Route: IM; Site: right deltoid; ph 19:27 Follow up: Response: No adverse reaction ph Medication: 18:59 VIS not applicable for this client. ph Outcome: 18:15 Discharge ordered by . ec2 19:27 Discharged to home with crutches, with friend, ph 19:27 Condition: good 19:27 Discharge instructions given to patient, Instructed on discharge instructions, follow up and referral plans. medication usage, Demonstrated understanding of instructions, follow-up care, medications, Prescriptions given X 1, 19:28 Patient left the ED. ph Signatures: Dispatcher [employer] Janay Santos RN RN Patricia Marinelli RN RN ph Lewis, Lynsay, RN RN ll1 Karyna Espitia rv1 Janelle Mckeon Edwin, MD MD ec2 Corrections: (The following items were deleted from the chart) 17:42 17:38 Reassessment: x-ray being done. Refused Tylenol and Motrin., States she would ll1 like something stronger. Dr. Milton informed. ll1
[2024-06-09] MEDS ORDERED: KETOROLAC 30 MG/ML INJ ONE (18:35)
[2024-06-09] MEDS ORDERED: CODEINE 30MG/APAP 300MG TAB ONE (18:36)
[2024-06-09 21:29] VITALS: BP 127/86; TEMP 97.9; O2SAT 98
== END 2024-06-09 19:28 | disposition home or self-care (01) ==
LOC: ER 16:20
DX: S92.351A Displaced fracture of fifth metatarsal bone, right foot, initial encounter for closed fracture (principal)

== ENCOUNTER 2024-08-03 13:56 | Emergency (ER) | payer OTHER ==
--- OUTSIDE RECORDS SUMMARY | 2024-08-03 14:09 | XMS REPORT | Continuity of Care Document ---
Author Name Unknown Address [address] [facility] [address] [place] [address] Organization [facility] [place] Address [address] [facility]. [address] [place] [address] Care Team Providers Care Internal Controls Analyst Name Role Phone Anthony SUE, Mary Primary Care Physician [phone] MIKAYLA FLOREZ Attending Clinician Unavailable Cristian Laguna Attending Clinician Unavailable Thuy Schneider Attending Clinician [phone] Nicolette Chakraborty Attending Clinician [phone] Doctor Unassigned, [place] Attending Clinician U navailable CARLOS GOMES Attending Clinician Unavailable THUY DIANE Attending Clinician Unavailable NICOLETTE BLAS Attending Clinician Unavailable Martha Connors Attending Clinician [phone] Lab, Ang - Db Attending Clinician Unavailable Magdalena Wise PA-C Attending Clinician [phone] MAGDALENA WISE Attending Clinician Unavailable DARBY BROTHERS Attending Clinician UnavailDARBY Buckley Attending Clinician UnavailMARTHA Pascal Attending Clinician Unavailable CHITRA SUÁREZ Attending Clinician Unavailable Keisha Beckman RN Attending Clinician Unavaila ble UNKNOWN, ATTENDING Attending Clinician Unavailab CLARIBEL Andrews Attending Clinician Unavailable CLARIBEL BLACK Attending Clinician Unavailable Doctor Unassigned, [place] Attending Clinician U sarabjitailSAMUEL Betancourt Attending Clinician Unavailable Ronak MAZA, Madeline Attending Clinician [phone] MADELINE SIMONS Attending Clinician Unavailable Nurse, [facility] Attending Clinician Un available Unknown, Attending Attending Clinician Unavailab Yuniel Forman OD Attending Clinician [phone] Martha Connors Attending Clinician [phone] Darby Brothers MD Attending Clinician [phone] Shayla, [facility] Attending Clinician Unavailable LUDMILA BEVERLY Attending Clinician Unavailab Ludmila Abdalla Attending Clinician [phone] EbTae Styles Attending Clinician [phone] JOSE GLEASON Attending Clinician Unavailable Jose Gleason MD Attending Clinician [phone] See Burch Attending Clinician [phone] SEE MIN Attending Clinician Unavailable YUNIEL CALDERON Attending Clinician Unavailabl Parker Nelson Attending Clinician Unavailable EDDOC, GENERIC FOR EDM Attending Clinician Unava ilCarlos Stevens MD Attending Clinician [phone] BOB MIN Attending Clinician Unavailable Mikayla Florez MD Attending Clinician [phone] BACILIO BENTLEY Attending Clinician Unavail able Caitlin Cuevas RN Attending Clinician Unavail able YUNIEL THURMAN Attending Clinician Unavail able Armando Attending Clinician Unavaila NEO Bosch Attending Clinician UnavailPia Bess RN Attending Clinician Unavailable Jenaro Padilla MD Attending Clinician [phone] Breana Calhoun RN Attending Clinician Unava ilLUIS Jackson Attending Clinician Unavailable Jase Wayne Attending Clinician [phone] Bud CAMPOS, Neo Hwang Attending Clinician Unavail able JOSE SANCHEZ Attending Clinician Unavailable JOSE SANCHEZ Attending Clinician Unavailable Rc Peng DO Attending Clinician [phone] Calvin Nova MD Attending Clinician [phone] Edwin Mathews Attending Clinician Unavailable Porfirio Attending Clinician Unavailable Jovana Weber Attending Clinician Unavailable AISHA CHÁVEZ Attending Clinician Unavailable Jayden Knight MD Attending Clinician [phone] Aisha Chávez MD Attending Clinician [phone] FRANCISCO GAMING Attending Clinician Unavailable JOSE BACK Attending Clinician Unavailable Francisco Gaming PA-C Attending Clinician [phone] [facility] Attending Clinician + [phone] Vtc-Lab Attending Clinician Unavailable Abdelrahman Madden MD Attending Clinician Unavail able Samuel Guzmán MD Attending Clinician [phone] SAMUEL GUZMÁN Attending Clinician Unavaila ble Only, Lcc Test Attending Clinician Unavailable Jose Back MD Attending Clinician [phone] Ambika Masetrs MD Attending Clinician [phone] Giovanni Levine MD Attending Clinician [phone] Yareli Haynes RN Attending Clinician Unavailable GINI WILLARD Attending Clinician Unavailable GLENNY ARREOLA Attending Clinician Unavail able MIKAYLA FLOREZ Admitting Clinician Unavailable Jovana Weber Admitting Clinician Unavailable Armando Admitting Clinician Unavaila CARLOS Moura Admitting Clinician Unavailable Carlos Gomes MD Admitting Clinician [phone] CALVIN NOVA Admitting Clinician Unavailable Porfirio Admitting Clinician Unavailable JAYDEN KNIGHT Admitting Clinician Unavailable Payers Payer Name Policy Type Policy Number Effective Date Expirati on Date Source [facility] [id number] 2023 00:00:00 [place] [id number] 2023 00:00:[place] [id number] 2022 00:00:00 2024 00:00:00 CIGNA - [place] (EPO) [id number] 2022 00:00:00 2023 00:00:00 [place] [id number] AETNA [id number] 2021 00:00:00 AETNA - CHOICE (POS II) [id number] 2021 00:00:00 Problems Condition Name Condition Details Condition Category Status Onset Date Resolution Date Last Treatment Date Treating Clinician Comments Source Cervicalgi a Cervicalgi a Disease Active 2023-03 0-25 00:00: 00 [facility] Right upper quadrant pain Right upper quadrant pain Disease Active 2023-03 0-25 00:00: 00 [facility] Epigastric pain Epigastric pain Disease Active 2023-03 0-25 00:00: 00 [facility] Nausea Nausea Disease Active 2023-03 0-25 00:00: 00 [facility] Hx of urinary stone Hx of urinary stone Disease Active 2023-03 0-25 00:00: 00 [facility] Costochond ritis, acute Costochond ritis, acute Disease Active 6-26 00:00: 00 [facility] Chronic right shoulder pain Chronic right shoulder pain Disease Active 6-26 00:00: 00 [facility] Raccoon bite, subsequent encounter Raccoon bite, subsequent encounter Disease Active 6-26 00:00: 00 [facility] Encounter for repeat administra tion of rabies vaccinatio n Encounter for repeat administra tion of rabies vaccinatio n Disease Active 6-25 00:00: 00 [facility] Flank pain Flank pain Disease Active 0 4-03 00:00: 00 [facility] Acute abdominal pain Acute abdominal pain Disease Active 2024-0 3-17 00:00: 00 [facility] HLD (hyperlipi demia) HLD (hyperlipi demia) Disease Active 317 00:00: 00 [facility] Anxiety Anxiety Disease Active 317 00:00: 00 [facility] Pyelonephr itis Pyelonephr itis Disease Active 317 00:00: 00 [facility] GERD (gastroeso phageal reflux disease) GERD (gastroeso phageal reflux disease) Disease Active 317 00:00: 00 [facility] KRISTOPHER (acute kidney injury) KRISTOPHER (acute kidney injury) Disease Active 05-31 00:00: 00 [facility] Nephrolith iasis Nephrolith iasis Disease Active 05-31 00:00: 00 [facility] Type 2 diabetes mellitus Type 2 diabetes mellitus Disease Active 05-31 00:00: 00 [facility] HTN (hypertens ion) HTN (hypertens ion) Disease Active 317 00:00: 00 [facility] Leukocytos is Leukocytos is Disease Active 05-31 00:00: 00 [facility] Right ureteral stone Right ureteral stone Disease Active 05-31 00:00: 00 [facility] KRISTOPHER (acute kidney injury) KRISTOPHER (acute kidney injury) Disease Active 05-31 00:00: 00 [facility] History of alcoholism History of Alcoholism Problem Active 05-03 00:00: 00 [facility] Mehta's esophagus Mehta's Esophagus [...] Diabetes Mellitus Problem Active 03-22 00:00: 00 [facility] Hyperlipid emia Hyperlipid emia Problem Active 03-22 00:00: 00 [facility] Anxiety Anxiety Problem Active 03-22 00:00: 00 [facility] Essential hypertensi on Essential Hypertensi on Problem Active 03-22 00:00: 00 [facility] Dysphagia, pharyngoes ophageal phase Dysphagia, pharyngoes ophageal phase Disease Active 12-04 00:00: 00 Overview: Formattin g of this note might be different from the original. Added automatic ally from request for surgery [id number] [facility] Globus sensation Globus sensation Disease Active 12-04 00:00: 00 Overview: Formattin g of this note might be different from the original. Added automatic ally from request for surgery [id number] [facility] Thrush Thrush Disease Active 12-04 00:00: 00 Overview: Formattin g of this note might be different from the original. Added automatic ally from request for surgery [id number] [facility] Rectal cancer Rectal cancer Disease Active 06-13 00:00: 00 Overview: Formattin g of this note might be different from the original. Added automatic ally from request for surgery [id number] [facility] History of colon cancer History of colon cancer Disease Active 06-13 00:00: 00 Overview: Formattin g of this note might be different from the original. Added automatic ally from request for surgery [id number] [facility] Trigger middle finger of left hand Trigger middle finger of left hand Disease Active 305 00:00: 00 [facility] GERD with esophagiti s GERD with esophagiti s Disease Recurre nce 1-03 00:00: 00 [facility] Tobacco dependence Tobacco dependence Disease Recurre nce 4-06 00:00: 00 [facility] Vomiting Vomiting Disease Active 2-13 00:00: 00 [facility] Elevated LFTs Elevated LFTs Disease Active 6 00:00: 00 [facility] Fatigue Fatigue Disease Active 09-12 00:00: 00 [facility] SBO (small bowel obstructio n) SBO (small bowel obstructio n) Disease Active 09-12 00:00: 00 [facility] Anemia Anemia Disease Active 09-12 00:00: 00 [facility] Nasal congestion Nasal congestion Disease Active 09-12 00:00: 00 [facility] Colon cancer Colon cancer Disease Recurre nce 09-12 00:00: 00 [facility] Preseptal cellulitis of right lower eyelid Preseptal cellulitis of right lower eyelid Disease Resolve d 2017-03 00:00: 00 2023-06-19 00:00:00 2023-06-19 14:56:12 [facility] COPD (chronic obstructiv e pulmonary disease) COPD (chronic obstructiv e pulmonary disease) Disease Resolve d 04-18 00:00: 00 2018-01-06 00:00:00 2018-01-06 14:34:23 [facility] Allergies, Adverse Reactions, Alerts Allergy Name Allergy Type Status Severity Reaction(s) Onset Date Inactive Date Treating Clinician Comments Source Sulfa (Sulfona mide Antibiot ics) Propensi ty to adverse reaction to drug Active 07-02 00:00: 00 [facility] Sulfa (Sulfona mide Antibiot ics) DA Active [place] CHILDHOOD REACTION 08-04 00:00: 00 [facility] hydrocod one bit DA Active [place] ITCHING, RASH 08-04 00:00: 00 [facility] SULFA (SULFONA MIDE ANTIBIOT ICS) Drug Class Active N/V 05-13 00:00: 00 [facility] HYDROCOD ONE-ACET AMINOPHE N DRUG Active Med ITCHING 05-13 00:00: 00 [facility] Sulfa (Sulfona mide Antibiot ics) Propensi ty to adverse reaction s Active Nausea and/or Vomiting 05-13 00:00: 00 [facility] Sulfa (Sulfona mide Antibiot ics) Propensi ty to adverse reaction s Active Nausea and/or Vomiting 05-13 00:00: 00 [facility] Hydrocod one-Acet aminophe n Propensi ty to adverse reaction s Active Itching 05-13 00:00: 00 [facility] Hydrocod one-Acet aminophe n Drug Allergy Active Rash 05-13 00:00: 00 [facility] hydrocod one bit DA Active [place] ITCHING, RASH 11-07 00:00: 00 [facility] Sulfa (Sulfona mide Antibiot ics) DA Active [place] CHILDHOOD REACTION 11-07 00:00: 00 [facility] VICODIN Allergy to substanc e Active Mild to moderate [facility] SULFA (SULFONA MIDE ANTIBIOT ICS) Allergy to substanc e Active [facility] Family History Family Member Diagnosis Comments Start Date Stop Date Sourc e Natural [facility] St[facility] Cancer [facility] Natural [facility] Hy[facility] Natural mother Lung Cancer [facility] Natural sister Uterine Cancer [facility] Social History Social Habit Start Date Stop Date Quantity Comments Source Sexual orientation U [facility] History of tobacco use Cigarette Smoker [facility] ASSERTION Not [facility] History of Occupation [facility] Alcoholic beverage intake 2024-03-16 00:00:00 2024-03-16 00:00:00 Current non-drinker of alcohol (finding) [facility] Cigarettes smoked current (pack per day) - Reported 2023-09-05 00:00:00 2023-09-05 00:00:00 [facility] Cigarette pack-years 2023-09-05 00:00:00 2023-09-05 00:00:00 [facility] Tobacco use and exposure 2023-09-05 00:00:00 2023-09-05 00:00:00 Smokeless tobacco non-user [facility] History of Social function 2023-06-12 00:00:00 2023-06-12 00:00:00 [facility] Alcohol intake 2023-06-03 00:00:00 2023-06-03 00:00:00 Current non-drinker of alcohol (finding) [facility] Exposure to SARS-CoV-2 (event) 2021-09-16 00:00:00 2021-09-26 22:48:00 Not sure [facility] Sex assigned at 1965 00:00:00 1965 00:00:00 [facility] Smoking Status Start Date Stop Date Source Heavy Tobacco Smoker [facility] Smokes tobacco daily 2023-09-05 00:00:00 [facility] Medications Ordered Medication Name Filled Medication Name Start Date Stop Date Current Medication? Ordering Clinician Indication Dosage Frequency Signature (SIG) Comments Components Source Cipro 500 mg tablet 07-26 00:00: 00 Yes 1mg [facility] indomethaci n 50 mg capsule 07-26 00:00: 00 Yes 1mg [facility] pioglitazon e 45 mg tablet 07-14 00:00: 00 Yes 1mg [facility] metformin 1,000 mg tablet 07-14 00:00: 00 Yes 1mg [facility] pioglitazon e 45 mg tablet 07-02 00:00: 00 Yes 1mg [facility] metformin 1,000 mg tablet 07-02 00:00: 00 Yes 1mg [facility] metronidazo le 500 mg tablet 06-09 00:00: 00 Yes 1mg [facility] amoxicillin 875 mg-potassiu nini clavulanate 125 mg tablet 06-09 00:00: 00 Yes 1mg [facility] albuterol sulfate HFA 90 mcg/actuati on aerosol inhaler - 00:00: 00 Yes 1mcg/ac tuation [facility] azithromyci n 250 mg tablet - 00:00: 00 Yes mg [facility] pioglitazon e 30 mg tablet - 00:00: 00 Yes 1mg [facility] metformin 1,000 mg tablet 06-08 00:00: 00 Yes 1mg [facility] Bromfed DM 2 mg-30 mg-10 mg/5 mL oral syrup 06-08 00:00: 00 Yes 10mg/5 mL [facility] allopurinol 300 mg tablet 05-19 00:00: 00 Yes 1mg [facility] rosuvastati n 5 mg tablet 05-19 00:00: 00 Yes 1mg [facility] GABAPENTIN 300 mg capsule 05-13 00:00: 00 Yes [id number] TAKE 1 CAPSULE BY MOUTH 3 TIMES A DAY ( EVERY MORNING AT NOON AND EVERY EVENING ) [facility] cetirizine 10 mg tablet 05-10 00:00: 00 [...] capsule 05-10 00:00: 00 Yes 1mg [facility] metFORMIN 1,000 mg tablet 2023-03 00:00: 00 Yes [id number] 1000mg Take 1 tablet by mouth in the morning and 1 tablet in the evening. Take with meals. [facility] lisinopriL 5 mg tablet 2023-03 00:00: 00 Yes [id number] 5mg Take 1 tablet by mouth in the morning. [facility] gabapentin 300 mg capsule 2023-03 00:00: 00 05-13 00:00 :00 No [id number] 300mg Take 1 capsule by mouth in the morning and 1 capsule at noon and 1 capsule in the evening. [facility] traMADoL 50 mg tablet 2023-03 00:00: 00 03-24 05:59 :00 No [id number] 50mg Take 1 tablet by mouth every 6 (six) hours as needed for Pain (scale 7-10) for up to 7 days. Indication s: acute pain [facility] naproxen 500 mg tablet 2023-03 00:00: 00 Yes [id number] 500mg Take 1 tablet by mouth in the morning and 1 tablet in the evening. Take with meals. [facility] levothyroxi ne 75 mcg tablet 2023-03 00:00: 00 Yes [id number] 75ug Take 1 tablet by mouth every morning. [facility] methocarbam oL 500 mg tablet 2023-03 00:00: 00 Yes [id number] 500mg Take 1 tablet by mouth 4 (four) times daily. [facility] meloxicam 15 mg tablet 12-08 00:00: 00 01-08 00:00 :00 No [id number] 15mg Take 1 tablet by mouth in the morning. [facility] triamcinolo ne acetonide (KENALOG) injection 16 mg 09-10 14:45: 00 09-10 13:52 :00 No [id number] 16mg 16 mg, Intramuscu lar, ONCE, 1 dose, On Nalini 09/11/23 at 0945, Routine [facility] Blood-Gluco se Meter (GLUCOCARD SHINE METER) [facility] 09-09 00:00: 00 Yes [id number] 00 Use as directed [facility] lancets (TECHLITE LANCETS) 28 gauge [facility] 09-09 00:00: 00 Yes [id number] 00 Check FASTING BLOOD SUGAR DAILY [facility] blood sugar diagnostic (GLUCOCARD SHINE TEST STRIPS) strip 09-09 00:00: 00 Yes [id number] 00 Check fasting BLOOD SUGAR DAILY [facility] lancets (TECHLITE LANCETS) 28 gauge [facility] 09-09 00:00: 00 Yes [id number] Check FASTING BLOOD SUGAR DAILY [facility] blood sugar diagnostic (GLUCOCARD SHINE TEST STRIPS) strip 09-09 00:00: 00 Yes [id number] 00 Check fasting BLOOD SUGAR DAILY [facility] levothyroxi ne 75 mcg tablet 09-09 00:00: 00 01-14 00:00 :00 No [id number] 75ug Take 1 tablet by mouth every morning. [facility] meloxicam 15 mg tablet 09-09 00:00: 00 12-08 00:00 :00 No [id number] 15mg Take 1 tablet by mouth in the morning. [facility] mupirocin 2 % ointment 09-04 00:00: 00 Yes [id number] Apply to area(s) 3 (three) times daily. [facility] rabies immune globulin (PF) (HYPERRAB (PF)) injection 1,044 Units 09-02 01:30: 00 09-02 01:21 :00 No 20U/kg 1,044 Units (20 Units/kg ?52.2 kg), Intramuscu lar, ONCE, 1 dose, On Fri09/02/23 at 2030, Routine [facility] ketorolac 10 mg tablet 09-01 00:00: 00 01-08 00:00 :00 No [id number] 10mg Take 1 tablet by mouth every 6 (six) hours as needed for Pain (scale 4-6) or Pain (scale 7-10). [facility] amoxicillin -clavulanat e 875-125 mg per tablet 09-01 00:00: 00 09-12 04:59 :00 No [id number] 1{tbl} Take 1 tablet by mouth every 12 (twelve) hours for 10 days. [facility] mupirocin 2 % cream 09-01 00:00: 00 09-04 00:00 :00 No [id number] Apply to area(s) 3 (three) times daily. [facility] traMADoL 50 mg tablet 08-24 00:00: 00 2024- 06-13 04:59 :00 No [id number] 50mg Take 1 tablet by mouth every 8 (eight) hours as needed for Pain (scale 4-6) for up to 2 days. Indication s: acute pain [facility] simethicone 80 mg chewable tablet 06-18 10:24: 48 Yes Take 80 mg as needed by oral route. [facility] ondansetron 4 mg disintegrat ing tablet 06-18 10:24: 48 Yes ondansetro n 4 mg disintegra ting tablet [facility] calcium carbonate (CALCIUM 500 ORAL) 06-18 10:19: 58 Yes Take by mouth. [facility] gabapentin 300 mg capsule 06-16 00:00: 00 07-29 04:59 :00 No [id number] 300mg Take 1 capsule by mouth in the morning and 1 capsule at noon and 1 capsule in the evening. Do all this for 42 days. [facility] lactated ringers IV infusion 1,000 mL 06-11 23:15: 00 Yes 1000mL at 75 mL/hr, 1,000 mL, IV Infusion, CONTINUOUS , Starting on Nalini 06/12/23 at 1815, Until Discontinu ed, Routine, PACU [facility] morpHINE (2 mg/mL) injection 2 mg 06-11 23:06: 39 Yes 2mg 2 mg, Slow IV Push, Q5MIN PRN, 3 doses, Starting on Nalini 06/12/23 at 1806, Until Discontinu ed, Routine, Pain (scale 4-6), PACU [facility] morpHINE (4 mg/mL) injection 4 mg 06-11 23:06: 39 Yes 4mg 4 mg, Slow IV Push, [id number], 3 doses, Starting on Nalini 06/12/23 at 1806, Until Discontinu ed, Routine, Pain (scale 7-10), PACU [facility] hydralAZINE (APRESOLINE ) injection 10 mg 06-11 23:06: 39 Yes 10mg 10 mg, Slow IV Push, Q20MIN PRN, 2 doses, Starting on Nalini 06/12/23 at 1806, Until Discontinu ed, Routine, Other, SBP > 170mmHg or DBP > 90mmHg, PACU [facility] labetaloL (NORMODYNE) injection 10 mg 06-11 23:06: 39 Yes 10mg 10 mg, Slow IV Push, Q15MIN PRN, 2 doses, Starting on Nalini 06/12/23 at 1806, Until Discontinu ed, Routine, SBP greater than 170mmHg or DBP greater than 90mmHg., PACU [facility] FENTanyl PF (SUBLIMAZE (PF)) injection 50 mcg 06-11 23:06: 39 Yes 50ug 50 mcg, Slow IV Push, Q5MIN PRN, 4 doses, Starting on Nalini 06/12/23 at 1806, Until Discontinu ed, Routine, Pain (scale 7-10), PACU [facility] FENTanyl PF (SUBLIMAZE (PF)) injection 25 mcg 06-11 23:06: 39 Yes 25ug 25 mcg, Slow IV Push, Q5MIN PRN, 4 doses, Starting on Nalini 06/12/23 at 1806, Until Discontinu ed, Routine, Pain (scale 4-6), PACU [facility] proMETHazin e (PHENERGAN) 6.25 mg in NaCl 0.9% (NS) 50 mL piggyback 06-11 23:06: 39 Yes 6.25mg 6.25 mg, IV Piggyback, at 200 mL/hr Administer over 15 Minutes, Q15MIN PRN, 4 doses, Starting on Nalini 06/12/23 at 1806, Until Discontinu ed, Routine, Nausea and Vomiting (N/V), If unresponsi ve to first choice antiemetic , PACU [facility] ondansetron (ZOFRAN (PF)) injection 4 mg 06-11 23:06: 39 Yes 4mg 4 mg, Slow IV Push, PRN, 1 dose, Starting on Nalini 06/12/23 at 1806, Until Discontinu ed, Routine, Nausea and Vomiting (N/V), PACU [facility] sodium chloride 0.9 % irrigation solution 06-11 22:48: 00 06-11 23:14 :06 No PRN, Starting on Nalini 06/12/23 at 1748, Until Nalini 06/12/23 at 1814, Intra-op [facility] iohexoL (OMNIPAQUE 300-50 mL)) injection 06-11 21:58: 00 06-11 23:14 :06 No PRN, Starting on Nalini 06/12/23 at 1658, Until Nalini 06/12/23 at 1814, Routine, Intra-op [facility] morpHINE (4 mg/mL) injection 2 mg 06-11 18:46: 12 06-11 23:14 :06 No 2mg 2 mg, Slow IV Push, Q15MIN PRN, 2 doses, Starting on Nalini 06/12/23 at 1346, Until Nalini 06/12/23 at 1814, Routine, Pain (scale 4-6), DSU Pre-op [facility] ketorolac (TORADOL) injection 30 mg 06-11 18:45: 00 06-11 19:08 :00 No 30mg 30 mg, Slow IV Push, ONCE, 1 dose, On Nalini 06/12/23 at 1400, Routine, DSU Pre-op [facility] lactated ringers IV infusion 1,000 mL 06-11 18:15: 00 06-11 18:33 :00 No 1000mL at 42 mL/hr, 1,000 mL, IV Infusion, ONCE, 1 dose, On Nalini 06/12/23 at 1315, Routine, DSU Pre-op [facility] tamsulosin (FLOMAX) 0.4 mg 24 hr capsule 06-11 00:00: 00 01-08 00:00 :00 No [id number] .4mg Take 1 capsule by mouth in the morning. [facility] oxyBUTYnin chloride 5 mg tablet 06-11 00:00: 00 01-08 00:00 :00 No [id number] 5mg Take 1 tablet by mouth in the morning and 1 tablet in the evening. [facility] cephALEXin 250 mg capsule 06-11 00:00: 00 06-17 04:59 :00 No [id number] 500mg Take 2 capsules by mouth every 12 (twelve) hours for 5 days. [facility] ketorolac (TORADOL) injection 15 mg 06-04 03:00: 00 06-04 03:06 :00 No 15mg 15 mg, Slow IV Push, ONCE, 1 dose, On Fri06/04/23 at 2200, JHOANA [facility] ondansetron (ZOFRAN (PF)) injection 4 mg 06-04 03:00: 00 06-04 03:05 :00 No 4mg 4 mg, Slow IV Push, ONCE, 1 dose, On Fri06/04/23 at 2200, JHOANA [facility] morpHINE (2 mg/mL) injection 2 mg 06-04 03:00: 00 06-04 03:07 :00 No 2mg 2 mg, Slow IV Push, ONCE, 1 dose, On Fri06/04/23 at 2200, STAT [facility] ibuprofen 800 mg tablet 06-03 00:00: 00 01-08 00:00 :00 No [id number] 800mg Take 1 tablet by mouth every 6 (six) hours as needed for Pain (scale 4-6) for up to 30 doses. [facility] fluconazole 200 mg tablet 06-03 00:00: 00 06-18 00:00 :00 No [id number] 400mg Take 2 tablets by mouth in the morning. [facility] ciprofloxac in HCl 500 mg tablet 06-03 00:00: 00 06-11 00:00 :00 No [id number] 500mg Take 1 tablet by mouth in the morning and 1 tablet in the evening. [facility] methocarbam oL 500 mg tablet 06-02 00:00: 00 01-08 00:00 :00 No [id number] 500mg Take 1 tablet by mouth 4 (four) times daily. [facility] tamsulosin 0.4 mg 24 hr capsule 06-02 00:00: 00 06-11 00:00 :00 No [id number] .4mg Take 1 capsule by mouth at bedtime. [facility] fluconazole (DIFLUCAN) tablet 400 mg 06-01 22:15: 00 06-08 13:59 :00 No 400mg 400 mg, Oral, DAILY, 7 doses, First dose on Fri06/02/23 at 1715, Last dose on Fri06/08/23 at 0900, JHOANA
Re ason for Anti-Infec tive: Documented Infection< br>Documen harvey Infection Site: Urine
D uration of Therapy: 7 days [facility] lactated ringers IV infusion 1,000 mL 06-01 18:30: 00 Yes 1000mL at 75 mL/hr, 1,000 mL, IV Infusion, CONTINUOUS , Starting on Fri06/02/23 at 1330, Until Discontinu ed, Routine, PACU [facility] lidocaine (XYLOCAINE) 2 % jelly URO-JET 06-01 17:56: 00 06-01 18:25 :04 No PRN, Starting on Fri06/02/23 at 1256, Until Fri06/02/23 at 1325, Routine, Intra-op [facility] sodium chloride 0.9 % irrigation solution 06-01 17:50: 00 Yes PRN, Starting on Fri06/02/23 at 1250, Until Discontinu ed, Intra-op [facility] iopamidol (ISOVUE 370-500 mL) injection 06-01 17:50: 00 06-01 18:25 :04 No PRN, Starting on Fri06/02/23 at 1250, Until Fri06/02/23 at 1325, Routine, Intra-op [facility] pantoprazol e (PROTONIX) EC tablet 40 mg 06-01 14:00: 00 Yes 40mg 40 mg, Oral, DAILY, First dose on Fri06/02/23 at 0900, Until Discontinu ed, Routine [facility] cyclobenzap rine (FLEXERIL) tablet 10 mg 06-01 08:00: 00 06-01 07:07 :00 No 10mg 10 mg, Oral, ONCE, 1 dose, On 06/02/23 at 0300, Routine [facility] nicotine (NICODERM) 14 mg/24 hr patch 1 Patch 06-01 04:15: 00 Yes 1{patch } 1 Patch, Topical, Administer over 24 Hours, Q24H, First dose on 06/01/23 at 2315, Until Discontinu ed, Routine [facility] tamsulosin (FLOMAX) capsule 0.4 mg 06-01 02:00: 00 Yes .4mg 0.4 mg, Oral, QHS, First dose on Fri06/01/23 at 2100, Until Discontinu ed, Routine [facility] atorvastati n (LIPITOR) tablet 10 mg 06-01 02:00: 00 Yes 10mg 10 mg, Oral, QHS, First dose on Fri06/01/23 at 2100, Until Discontinu ed, Routine [facility] methocarbam oL (ROBAXIN) tablet 500 mg 06-01 01:00: 00 Yes 500mg 500 mg, Oral, QID, First dose on Fri06/01/23 at 2000, Until Discontinu ed, Routine [facility] buPROPion SR (WELLBUTRIN SR) tablet 150 mg 06-01 01:00: 00 Yes 150mg 150 mg, Oral, BID, First dose on Fri06/01/23 at 2000, Until Discontinu ed, Routine [facility] acetaminoph en (TYLENOL) tablet 650 mg 05-31 23:00: 00 Yes 650mg 650 mg, Oral, Q6H, First dose (after last modificati on) on 06/01/23 at 1800, Until Discontinu ed, Routine [facility] lactated ringers IV infusion 1,000 mL 05-31 22:15: 00 06-01 21:59 :00 No 1000mL at 150 mL/hr, 1,000 mL, IV Infusion, CONTINUOUS , Starting on Fri06/01/23 at 1715, Until 06/02/23 at 1659, Routine [facility] Sliding Scale Insulin - Lispro (HumaLOG) 05-31 22:00: 00 Yes Subcutaneo us, TID MEALS+HS, First dose on Fri06/01/23 at 1700, Until Discontinu ed, Routine [facility] enoxaparin (LOVENOX) injection 40 mg 05-31 22:00: 00 Yes 40mg 40 mg, Subcutaneo us, DAILY, First dose on Fri06/01/23 at 1700, Until Discontinu ed, Routine [facility] morpHINE (4 mg/mL) injection 4 mg 05-31 21:48: 25 Yes 4mg 4 mg, Slow IV Push, Q4HPRN, Starting on Fri06/01/23 at 1648, Until Discontinu ed, Routine, Pain (scale 7-10) [facility] glucagon (GLUCAGEN DIAGNOSTIC KIT) injection 1 mg 05-31 21:46: 43 Yes 1mg 1 mg, Intramuscu lar, PRN, Starting on Fri06/01/23 at 1646, Until Discontinu ed, JHOANA, Blood Glucose < or = 70 mg/dL and patient is NPO, unable to swallow or has mental changes. [facility] dextrose 50 % in water (D50W) injection 25 mL 05-31 21:46: 43 Yes 25mL 25 mL, Slow IV Push, PRN, Starting on Fri06/01/23 at 1646, Until Discontinu ed, JHOANA, Blood Glucose < or = 70 mg/dL and patient is NPO, unable to swallow or has mental status changes. [facility] guaiFENesin (FENESIN IR) tablet 200 mg 05-31 21:46: 20 Yes 200mg 200 mg, Oral, Q4HPRN, Starting on Fri06/01/23 at 1646, Until Discontinu ed, Routine, Cough [facility] ondansetron (ZOFRAN (PF)) injection 4 mg 05-31 21:46: 20 Yes 4mg 4 mg, Slow IV Push, Q6HPRN, Starting on Fri06/01/23 at 1646, Until Discontinu ed, Routine, Nausea and Vomiting (N/V) [facility] sennosides- docusate sodium (SENOKOT-S) 8.6-50 mg per tablet 1 tablet 05-31 21:46: 20 Yes 1{tbl} 1 tablet, Oral, QDAILYPRN, Starting on Fri06/01/23 at 1646, Until Discontinu ed, Routine, Constipati on [facility] HYDROcodone -acetaminop hen (NORCO 5) 5-325 mg tablet 1 tablet 05-31 21:46: 20 06-02 21:45 :20 No 1{tbl} 1 tablet, Oral, Q6HPRN, Starting on Fri06/01/23 at 1646, Until Fri06/03/23 at 1645, Routine, Pain (scale 4-6) [facility] gabapentin (NEURONTIN) capsule 300 mg 05-31 21:45: 53 Yes 300mg 300 mg, Oral, QHSPRN, Starting on Fri06/01/23 at 1645, Until Discontinu ed, Routine, neuropathi c pain [facility] cefTRIAXone (ROCEPHIN) 1,000 mg in NaCl 0.9% (NS) 100 mL MINI-BAG 05-31 18:30: 00 05-31 19:08 :00 No 1000mg 1,000 mg, IV Piggyback, ONCE, 1 dose, On Fri06/01/23 at 1330, Administer over 30 Minutes, 100 mL
Reas on for Anti-Infec tive: Documented Infection< br>Documen harvey Infection Site: Urine
D uration of Therapy: Once (ED) [facility] ketorolac (TORADOL) injection 15 mg 05-31 17:30: 00 05-31 16:34 :00 No 15mg 15 mg, Slow IV Push, ONCE, 1 dose, On Fri06/01/23 at 1230, JHOANA [facility] NaCl 0.9% (NS) bolus infusion 1,000 mL 05-31 17:15: 00 05-31 19:08 :00 No 1000mL at 999 mL/hr, 1,000 mL, IV Infusion, ONCE, 1 dose, On [place] 06/01/23 at 1215, JHOANA [facility] ondansetron (ZOFRAN (PF)) injection 4 mg 05-31 16:30: 00 05-31 16:34 :00 No 4mg 4 mg, Slow IV Push, ONCE, 1 dose, On Fri06/01/23 at 1130, JHOANA [facility] HYDROcodone -acetaminop hen 5-325 mg tablet 05-29 00:00: 00 Yes [facility] ketorolac 10 mg tablet 3-12 00:00: 00 Yes [facility] traMADoL 50 mg tablet 2-16 00:00: 00 Yes 1 po twice daily for severe pain. [facility] atorvastati n 40 mg tablet 2022-03 1-09 00:00: 00 Yes 40mg Take 1 tablet by mouth at bedtime. [facility] cephALEXin (KEFLEX) capsule 500 mg 09-27 13:00: 00 Yes 500mg 500 mg, Oral, QID, First dose on [place] 09/27/21 at 0800, Until Discontinu ed, JHOANA
Re ason for Anti-Infec tive: Documented Infection< br>Documen harvey Infection Site: Urine
D uration of Therapy: Other (see Comments) [facility] iopamidol (ISOVUE 370-500 mL) injection 100 mL 09-27 07:15: 00 09-27 05:57 :00 No [id number] 100mL 100 mL, Intravenou s, ONCE, 1 dose, On [place] 09/27/21 at 0215, Routine [facility] NaCl 0.9% (NS) bolus infusion 1,000 mL 09-27 06:45: 00 09-27 14:48 :00 No 1000mL at 999 mL/hr, 1,000 mL, IV Infusion, ONCE, 1 dose, On Fri09/27/21 at 0145, [facility] ondansetron (ZOFRAN (PF)) injection 4 mg 09-27 06:45: 00 09-27 06:21 :00 No 4mg 4 mg, Slow IV Push, ONCE, 1 dose, On Fri09/27/21 at 0145, [facility] ketorolac (TORADOL) injection 15 mg 09-27 05:45: 00 09-27 06:21 :00 No 15mg 15 mg, Slow IV Push, ONCE, 1 dose, On Fri09/27/21 at 0045, [facility] cefTRIAXone (ROCEPHIN) 1,000 mg in NaCl 0.9% (NS) 50 mL MINI-BAG 09-27 05:30: 00 09-27 08:24 :00 No 1000mg 1,000 mg, IV Piggyback, ONCE, 1 dose, On Fri09/27/21 at 0030, Administer over 30 Minutes, 50 mL
Reas on for Anti-Infec tive: Documented Infection< br>Documen harvey Infection Site: Urine
D uration of Therapy: Other (see Comments) [facility] diazePAM (VALIUM) tablet 5 mg 09-27 04:15: 00 09-27 04:46 :00 No 5mg 5 mg, Oral, ONCE, 1 dose, On Fri09/26/21 at 2315, [facility] glipiZIDE 10 mg tablet 09-27 00:00: 00 Yes [id number] 10mg Take 1 tablet by mouth in the morning. [facility] cefdinir 300 mg capsule 09-27 00:00: 00 06-11 00:00 :00 No [id number] 300mg Take 1 capsule by mouth in the morning and 1 capsule in the evening. [facility] atorvastati n 10 mg tablet 08-07 00:00: 06-18 00:00 :00 No [id number] 10mg Take 1 tablet by mouth at bedtime. [facility] atorvastati n 10 mg tablet 2020-0317 00:00: 00 Yes [id number] 10mg Take 1 tablet by mouth at bedtime. [facility] gabapentin 300 mg capsule 2020-03 0 00:00: 00 06-11 00:00 :00 No [id number] 300mg Take 1 capsule by mouth at bedtime as needed. [facility] glipiZIDE XL 5 mg 24 hr tablet 2020-03 00:00: 00 06-18 00:00 :00 No [id number] 5mg Take 1 tablet by mouth daily with breakfast. [facility] BUPROPION SR 150 mg SR tablet 12-11 00:00: 00 06-11 00:00 :00 No [id number] TAKE 1 TABLET BY MOUTH TWICE A DAY [facility] pantoprazol e 40 mg EC tablet 12-06 00:00: 00 06-11 00:00 :00 No [id number] 40mg Take 1 tablet by mouth daily. [facility] metFORMIN 1,000 mg tablet 12-04 00:00: 00 03-15 00:00 :00 No [id number] 1000mg Take 1 tablet by mouth 2 (two) times daily with meals. [facility] lisinopriL 5 mg tablet 11-29 00:00: 00 03-15 00:00 :00 No [id number] 5mg Take 1 tablet by mouth daily. [facility] blood sugar diagnostic (ONETOUCH ULTRA TEST) strip 11-23 00:00: 00 Yes Use to test glucose once a day E11.9 [facility] blood sugar diagnostic (ONETOUCH ULTRA TEST) strip 11-23 00:00: 00 Yes Use to test glucose once a day E11.9 [facility] lancets (ONETOUCH DELICA LANCETS) 30 gauge Misc 11-23 00:00: 00 Yes Use to test glucose once a day E11.9 [facility] lancets (ONETOUCH DELICA LANCETS) 30 gauge Misc 11-23 00:00: 00 Yes Use to test glucose once a day E11.9 [facility] albuterol 90 mcg/actuati on inhaler 11-16 00:00: 00 06-11 00:00 :00 No [id number] 2{puff} Inhale 2 Puffs every 4 (four) hours as needed for Wheezing or Shortness of Breath. [facility] acetaminoph en (TYLENOL EXTRA STRENGTH) 500 mg tablet 11-16 00:00: 00 06-11 00:00 :00 No [id number] 500mg Take 1 tablet by mouth every 6 (six) hours as needed for Pain for up to 20 doses. [facility] amlodipine 5 mg tablet Take by oral route for 90 days. amlodipine 5 mg tablet Take by oral route for 90 days. No amlodipine 5 mg tablet Take by oral route for 90 days. [facility] aspirin 81 mg chewable tablet Chew 1 tablet every day by oral route. aspirin 81 mg chewable tablet Chew 1 tablet every day by oral route. No 1 Q1D aspirin 81 mg chewable tablet Chew 1 tablet every day by oral route. [facility] Calcium 600 + D(3) 600 mg-10 mcg (400 unit) tablet Take 1 tablet every day by oral route. Calcium 600 + D(3) 600 mg-10 mcg (400 unit) tablet Take 1 tablet every day by oral route. No 1 Q1D Calcium 600 + D(3) 600 mg-10 mcg (400 unit) tablet Take 1 tablet every day by oral route. [facility] glipizide ER 10 mg [...] day by oral route for 90 days. [facility] glipizide ER 2.5 mg tablet, extended release 24 hr TAKE 1 TABLET BY MOUTH EVERY DAY glipizide ER 2.5 mg tablet, extended release 24 hr TAKE 1 TABLET BY MOUTH EVERY DAY No glipizide ER 2.5 mg tablet, extended release 24 hr TAKE 1 TABLET BY MOUTH EVERY DAY [facility] hydroxyzine HCl 50 mg tablet TAKE 1 TABLET BY MOUTH FOUR TIMES A DAY FOR 10 DAYS hydroxyzine HCl 50 mg tablet TAKE 1 TABLET BY MOUTH FOUR TIMES A DAY FOR 10 DAYS No hydroxyzin e HCl 50 mg tablet TAKE 1 TABLET BY MOUTH FOUR TIMES A DAY FOR 10 DAYS [facility] ibuprofen 200 mg capsule Take 3 capsules every 4 hours by oral route for 3 days. ibuprofen 200 mg capsule Take 3 capsules every 4 hours by oral route for 3 days. No 3capsul e(s) Q4H ibuprofen 200 mg capsule Take 3 capsules every 4 hours by oral route for 3 days. [facility] metformin ER 500 mg [...] day by oral route for 90 days. [facility] omeprazole 20 mg tablet,billy yed release Take 1 tablet every day by oral route. omeprazole 20 mg tablet,billy yed release Take 1 tablet every day by oral route. No 1 Q1D omeprazole 20 mg tablet,del ayed release Take 1 tablet every day by oral route. [facility] OneTouch Delica Lancets 30 gauge OneTouch Delica Lancets 30 gauge No OneTouch Delica Lancets 30 gauge [facility] OneTouch Ultra Test strips Use as directed. OneTouch Ultra Test strips Use as directed. No OneTouch Ultra Test strips Use as directed. [facility] tramadol 37.5 mg-acetamin ophen [...] TO 6 HOURS NEEDED FOR MODERATE PAIN [facility] amlodipine 5 mg tablet [...] 1 tablet every day by oral route. [facility] atorvastati n 40 mg tablet TAKE 1 TABLET BY MOUTH EVERYDAY AT BEDTIME atorvastati n 40 mg tablet TAKE 1 TABLET BY MOUTH EVERYDAY AT BEDTIME No atorvastat in 40 mg tablet TAKE 1 TABLET BY MOUTH EVERYDAY AT BEDTIME [facility] Calcium 600 + D(3) 600 mg-10 mcg (400 unit) tablet Take 1 tablet every day by oral route. Calcium 600 + D(3) 600 mg-10 mcg (400 unit) tablet Take 1 tablet every day by oral route. No 1 Q1D Calcium 600 + D(3) 600 mg-10 mcg (400 unit) tablet Take 1 tablet every day by oral route. [facility] Cipro 500 mg tablet Take 1 tablet every 12 hours by oral route for 7 days. Cipro 500 mg tablet Take 1 tablet every 12 hours by oral route for 7 days. No 1 Q12H Cipro 500 mg tablet Take 1 tablet every 12 hours by oral route for 7 days. [facility] glipizide 10 mg tablet TAKE 1 TABLET BY MOUTH EVERY DAY IN THE MORNING glipizide 10 mg tablet TAKE 1 TABLET BY MOUTH EVERY DAY IN THE MORNING No glipizide 10 mg tablet TAKE 1 TABLET BY MOUTH EVERY DAY IN THE MORNING [facility] glipizide ER 10 mg [...] day by oral route for 90 days. [facility] glipizide ER 2.5 mg tablet, extended release 24 hr TAKE 1 TABLET BY MOUTH EVERY DAY glipizide ER 2.5 mg tablet, extended release 24 hr TAKE 1 TABLET BY MOUTH EVERY DAY No glipizide ER 2.5 mg tablet, extended release 24 hr TAKE 1 TABLET BY MOUTH EVERY DAY [facility] hydroxyzine HCl 50 mg tablet TAKE 1 TABLET BY MOUTH FOUR TIMES A DAY FOR 10 DAYS hydroxyzine HCl 50 mg tablet TAKE 1 TABLET BY MOUTH FOUR TIMES A DAY FOR 10 DAYS No hydroxyzin e HCl 50 mg tablet TAKE 1 TABLET BY MOUTH FOUR TIMES A DAY FOR 10 DAYS [facility] metformin ER 500 mg [...] day by oral route for 90 days. [facility] omeprazole 20 mg capsule,del ayed release omeprazole 20 mg capsule,del ayed release No omeprazole 20 mg capsule,de layed release [facility] omeprazole 20 mg tablet,billy yed release Take 1 tablet every day by oral route. omeprazole 20 mg tablet,billy yed release Take 1 tablet every day by oral route. No 1 Q1D omeprazole 20 mg tablet,del ayed release Take 1 tablet every day by oral route. [facility] ondansetron 4 mg disintegrat ing tablet ondansetron 4 mg disintegrat ing tablet No ondansetro n 4 mg disintegra ting tablet [facility] OneTouch Delica Lancets 30 gauge OneTouch Delica Lancets 30 gauge No OneTouch Delica Lancets 30 gauge [facility] OneTouch Ultra Test strips Use as directed. OneTouch Ultra Test strips Use as directed. No OneTouch Ultra Test strips Use as directed. [facility] tramadol 37.5 mg-acetamin ophen [...] TO 6 HOURS NEEDED FOR MODERATE PAIN [facility] aspirin 81 mg chewable tablet Chew 1 tablet every day by oral route. aspirin 81 mg chewable tablet Chew 1 tablet every day by oral route. No 1 Q1D aspirin 81 mg chewable tablet Chew 1 tablet every day by oral route. [facility] atorvastati n 40 mg tablet Take 1 tablet every day by oral route for 30 days. atorvastati n 40 mg tablet Take 1 tablet every day by oral route for 30 days. No 1 Q1D atorvastat in 40 mg tablet Take 1 tablet every day by oral route for 30 days. [facility] Bromfed DM 2 mg-30 [...] day by oral route for 7 days. [facility] Calcium 600 + D(3) 600 mg-10 mcg (400 unit) tablet Take 1 tablet every day by oral route. Calcium 600 + D(3) 600 mg-10 mcg (400 unit) tablet Take 1 tablet every day by oral route. No 1 Q1D Calcium 600 + D(3) 600 mg-10 mcg (400 unit) tablet Take 1 tablet every day by oral route. [facility] cholecalcif dina (vitamin D3) [...] week by oral route for 90 days. [facility] glipizide ER 10 mg [...] day by oral route for 30 days. [facility] levofloxaci n 750 mg tablet Take 1 tablet every day by oral route for 7 days. levofloxaci n 750 mg tablet Take 1 tablet every day by oral route for 7 days. No 1 Q1D levofloxac in 750 mg tablet Take 1 tablet every day by oral route for 7 days. [facility] lisinopril 5 mg tablet 1 tab by mouth daily lisinopril 5 mg tablet 1 tab by mouth daily No lisinopril 5 mg tablet 1 tab by mouth daily [facility] metformin 500 mg tablet Take 1 tablet twice a day by oral route for 30 days. metformin 500 mg tablet Take 1 tablet twice a day by oral route for 30 days. No 1 BID metformin 500 mg tablet Take 1 tablet twice a day by oral route for 30 days. [facility] albuterol sulfate HFA 90 mcg/actuati on aerosol inhaler Inhale 2 puffs every 4 hours by inhalation route. albuterol sulfate HFA 90 mcg/actuati on aerosol inhaler Inhale 2 puffs every 4 hours by inhalation route. No 2puff(s ) Q4H albuterol sulfate HFA 90 mcg/actuat ion aerosol inhaler Inhale 2 puffs every 4 hours by inhalation route. [facility] aspirin 81 mg chewable tablet Chew 1 tablet every day by oral route. aspirin 81 mg chewable tablet Chew 1 tablet every day by oral route. No 1 Q1D aspirin 81 mg chewable tablet Chew 1 tablet every day by oral route. [facility] atorvastati n 40 mg tablet Take 1 tablet every day by oral route for 30 days. atorvastati n 40 mg tablet Take 1 tablet every day by oral route for 30 days. No 1 Q1D atorvastat in 40 mg tablet Take 1 tablet every day by oral route for 30 days. [facility] Calcium 600 + D(3) 600 mg-10 mcg (400 unit) tablet Take 1 tablet every day by oral route. Calcium 600 + D(3) 600 mg-10 mcg (400 unit) tablet Take 1 tablet every day by oral route. No 1 Q1D Calcium 600 + D(3) 600 mg-10 mcg (400 unit) tablet Take 1 tablet every day by oral route. [facility] cholecalcif dina (vitamin D3) [...] for 30 days. [facility] tramadol 50 mg tablet [...] by oral route. [facility] atorvastati n 40 mg tablet Take 1 tablet every day by oral route for 30 days. atorvastati n 40 mg tablet Take 1 tablet every day by oral route for 30 days. No 1 Q1D atorvastat in 40 mg tablet Take 1 tablet every day by oral route for 30 days. [facility] Calcium 600 + D(3) 600 mg-10 mcg (400 unit) tablet Take 1 tablet every day by oral route. Calcium 600 + D(3) 600 mg-10 mcg (400 unit) tablet Take 1 tablet every day by oral route. No 1 Q1D Calcium 600 + D(3) 600 mg-10 mcg (400 unit) tablet Take 1 tablet every day by oral route. [facility] cholecalcif dina (vitamin D3) [...] week by oral route for 90 days. [facility] glipizide ER 10 mg [...] day by oral route for 30 days. [facility] lisinopril 5 mg tablet 1 tab by mouth daily lisinopril 5 mg tablet 1 tab by mouth daily No lisinopril 5 mg tablet 1 tab by mouth daily [facility] metformin 500 mg tablet Take 1 tablet twice a day by oral route for 30 days. metformin 500 mg tablet Take 1 tablet twice a day by oral route for 30 days. No 1 BID metformin 500 mg tablet Take 1 tablet twice a day by oral route for 30 days. [facility] tramadol 50 mg tablet Take 1 tablet twice a day by oral route for 30 days. tramadol 50 mg tablet Take 1 tablet twice a day by oral route for 30 days. No 1 BID tramadol 50 mg tablet Take 1 tablet twice a day by oral route for 30 days. [facility] atorvastati n 40 mg tablet Take 1 tablet every day by oral route for 30 days. atorvastati n 40 mg tablet Take 1 tablet every day by oral route for 30 days. No 1 Q1D atorvastat in 40 mg tablet Take 1 tablet every day by oral route for 30 days. [facility] Calcium 600 + D(3) 600 mg-10 mcg (400 unit) tablet Take 1 tablet every day by oral route. Calcium 600 + D(3) 600 mg-10 mcg (400 unit) tablet Take 1 tablet every day by oral route. No 1 Q1D Calcium 600 + D(3) 600 mg-10 mcg (400 unit) tablet Take 1 tablet every day by oral route. [facility] cholecalcif dina (vitamin D3) [...] week by oral route for 90 days. [facility] glipizide ER 10 mg [...] day by oral route for 30 days. [facility] lisinopril 5 mg tablet 1 tab by mouth daily lisinopril 5 mg tablet 1 tab by mouth daily No lisinopril 5 mg tablet 1 tab by mouth daily [facility] metformin ER 500 mg tablet,exte nded release 24 hr Take 2 tablets every day by oral route at dinner. metformin ER 500 mg tablet,exte nded release 24 hr Take 2 tablets every day by oral route at dinner. No 2 Q1D metformin ER 500 mg tablet,ext ended release 24 hr Take 2 tablets every day by oral route at dinner. [facility] [facility] Naprosyn 500 mg tablet 1 po twice daily with food as needed for joint pain. Naprosyn 500 mg tablet 1 po twice daily with food as needed for joint pain. No Naprosyn 500 mg tablet 1 po twice daily with food as needed for joint pain. [facility] tramadol 50 mg tablet 1 po twice daily for severe pain. tramadol 50 mg tablet 1 po twice daily for severe pain. No tramadol 50 mg tablet 1 po twice daily for severe pain. [facility] atorvastati n 40 mg tablet Take 1 tablet every day by oral route for 30 days. atorvastati n 40 mg tablet Take 1 tablet every day by oral route for 30 days. No 1 Q1D atorvastat in 40 mg tablet Take 1 tablet every day by oral route for 30 days. [facility] famotidine 20 mg tablet Take 1 tablet twice a day by oral route. famotidine 20 mg tablet Take 1 tablet twice a day by oral route. No 1 BID famotidine 20 mg tablet Take 1 tablet twice a day by oral route. [facility] glipizide ER 10 mg [...] day by oral route for 30 days. [facility] lisinopril 5 mg tablet 1 tab by mouth daily lisinopril 5 mg tablet 1 tab by mouth daily No lisinopril 5 mg tablet 1 tab by mouth daily [facility] loperamide 2 mg tablet Take 2 mg as needed by oral route. loperamide 2 mg tablet Take 2 mg as needed by oral route. No 2mg loperamide 2 mg tablet Take 2 mg as needed by oral route. [facility] metformin ER 500 mg tablet,exte nded release 24 hr Take 2 tablets every day by oral route at dinner. metformin ER 500 mg tablet,exte nded release 24 hr Take 2 tablets every day by oral route at dinner. No 2 Q1D metformin ER 500 mg tablet,ext ended release 24 hr Take 2 tablets every day by oral route at dinner. [facility] tramadol 50 mg tablet 1 po twice daily for severe pain. tramadol 50 mg tablet 1 po twice daily for severe pain. No tramadol 50 mg tablet 1 po twice daily for severe pain. [facility] Immunizations Ordered Immunization Name Filled Immunization Name Date Status Comments Source Human Rabies Vaccine From [facility] 2023-[facility]-16 00:00:00 Completed Human Rabies Vaccine From Chicken Fibroblast Culture (RABAVERT) 2023-09-09 00:00:00 Completed Human Rabies Vaccine From Chicken Fibroblast Culture (RABAVERT) 2023-09-05 00:00:00 Completed [facility] Human Rabies Vaccine From Chicken Fibroblast Culture (RABAVERT) 2023-09-02 00:00:00 Completed [facility] TDAP 2018-05-13 00:00:00 Completed [facility] TDAP 2018-05-13 00:00:00 Completed [facility] TDAP 2018-05-13 00:00:00 Completed [facility] TDAP 2018-05-13 00:00:00 Completed [facility] TDAP 2018-05-13 00:00:00 Completed [facility] TDAP 2018-05-13 00:00:00 Completed [facility] TDAP Unknown Completed [facility] TDAP Unknown Completed [facility] TDAP Unknown Completed [facility] TDAP Unknown Completed [facility] TDAP Unknown Completed [facility] TDAP Unknown Completed [facility] TDAP Unknown Completed [facility] TDAP Unknown Completed [facility] TDAP Unknown Completed [facility] TDAP Unknown Completed [facility] TDAP Unknown Completed [facility] TDAP Unknown Completed [facility] TDAP Unknown Completed [facility] TDAP Unknown Completed [facility] TDAP Unknown Completed [facility] TDAP Unknown Completed [facility] TDAP Unknown Completed [facility] TDAP Unknown Completed [facility] TDAP Unknown Completed [facility] TDAP Unknown Completed [facility] TDAP Unknown Completed [facility] TDAP Unknown Completed [facility] TDAP Unknown Completed [facility] TDAP Unknown Completed [facility] TDAP Unknown Completed [facility] TDAP Unknown Completed [facility] TDAP Unknown Completed [facility] TDAP Unknown Completed [facility] TDAP Unknown Completed [facility] TDAP Unknown Completed [facility] TDAP Unknown Completed [facility] Human Rabies Vaccine From Chicken Fibroblast Culture (RABAVERT) Unknown Completed [facility] TDAP Unknown Completed [facility] Human Rabies Vaccine From Chicken Fibroblast Culture (RABAVERT) Unknown Completed [facility] TDAP Unknown Completed [facility] Human Rabies Vaccine From Chicken Fibroblast Culture (RABAVERT) Unknown Completed [facility] Human Rabies Vaccine From Chicken Fibroblast Culture (RABAVERT) Unknown Completed [facility] TDAP Unknown Completed [facility] TDAP Unknown Completed [facility] Human Rabies Vaccine From Chicken Fibroblast Culture (RABAVERT) Unknown Completed [facility] Human Rabies Vaccine From Chicken Fibroblast Culture (RABAVERT) Unknown Completed [facility] TDAP Unknown Completed [facility] Human Rabies Vaccine From Chicken Fibroblast Culture (RABAVERT) Unknown Completed [facility] Human Rabies Vaccine From Chicken Fibroblast Culture (RABAVERT) Unknown Completed [facility] TDAP Unknown Completed [facility] Human Rabies Vaccine From Chicken Fibroblast Culture (RABAVERT) Unknown Completed [facility] Human Rabies Vaccine From Chicken Fibroblast Culture (RABAVERT) Unknown Completed [facility] TDAP Unknown Completed [facility] Human Rabies Vaccine From Chicken Fibroblast Culture (RABAVERT) Unknown Completed [facility] Human Rabies Vaccine From Chicken Fibroblast Culture (RABAVERT) Unknown Completed [facility] TDAP Unknown Completed [facility] Human Rabies Vaccine From Chicken Fibroblast Culture (RABAVERT) Unknown Completed [facility] Human Rabies Vaccine From Chicken Fibroblast Culture (RABAVERT) Unknown Completed [facility] TDAP Unknown Completed [facility] Human Rabies Vaccine From Chicken Fibroblast Culture (RABAVERT) Unknown Completed [facility] Human Rabies Vaccine From Chicken Fibroblast Culture (RABAVERT) Unknown Completed [facility] TDAP Unknown Completed [facility] Human Rabies Vaccine From Chicken Fibroblast Culture (RABAVERT) Unknown Completed [facility] Human Rabies Vaccine From Chicken Fibroblast Culture (RABAVERT) Unknown Completed [facility] TDAP Unknown Completed [facility] Human Rabies Vaccine From Chicken Fibroblast Culture (RABAVERT) Unknown Completed [facility] Human Rabies Vaccine From Chicken Fibroblast Culture (RABAVERT) Unknown Completed [facility] TDAP Unknown Completed [facility] Human Rabies Vaccine From Chicken Fibroblast Culture (RABAVERT) Unknown Completed [facility] Human Rabies Vaccine From Chicken Fibroblast Culture (RABAVERT) Unknown Completed [facility] TDAP Unknown Completed [facility] Human Rabies Vaccine From Chicken Fibroblast Culture (RABAVERT) Unknown Completed [facility] Human Rabies Vaccine From Chicken Fibroblast Culture (RABAVERT) Unknown Completed [facility] TDAP Unknown Completed [facility] Human Rabies Vaccine From Chicken Fibroblast Culture (RABAVERT) Unknown Completed [facility] Human Rabies Vaccine From Chicken Fibroblast Culture (RABAVERT) Unknown Completed [facility] TDAP Unknown Completed [facility] Human Rabies Vaccine From Chicken Fibroblast Culture (RABAVERT) Unknown Completed [facility] Human Rabies Vaccine From Chicken Fibroblast Culture (RABAVERT) Unknown Completed [facility] TDAP Unknown Completed [facility] Human Rabies Vaccine From Chicken Fibroblast Culture (RABAVERT) Unknown Completed [facility] Human Rabies Vaccine From Chicken Fibroblast Culture (RABAVERT) Unknown Completed [facility] Vital Signs Vital Name Observation Time Observation Value Comments S ource Respiratory rate 2024-03-16 20:42:00 16 /min [facility] Body height 2024-03-16 20:42:00 149.9 cm [facility] Body weight 2024-03-16 20:42:00 58.968 kg [facility] BMI 2024-03-16 20:42:00 26.26 kg/m2 [facility] Systolic blood pressure 2024-02-27 19:49:00 102 mm[Hg] [facility] Diastolic blood pressure 2024-02-27 19:49:00 74 mm[Hg] [facility] Heart rate 2024-02-27 19:49:00 80 /min [facility] Body temperature 2024-02-27 19:49:00 36.72 Fauzia [facility] Body height 2024-02-27 19:49:00 149.9 cm [facility] Body weight 2024-02-27 19:49:00 58.968 kg [facility] BMI 2024-02-27 19:49:00 26.26 kg/m2 [facility] Systolic blood pressure 2024-01-09 20:16:00 138 mm[Hg] [facility] Diastolic blood pressure 2024-01-09 20:16:00 86 mm[Hg] [facility] Heart rate 2024-01-09 20:16:00 79 /min [facility] Body temperature 2024-01-09 20:16:00 36.78 Fauzia [facility] Respiratory rate 2024-01-09 20:16:00 18 /min [facility] Body height 2024-01-09 20:16:00 149.9 cm [facility] Body weight 2024-01-09 20:16:00 55.792 kg [facility] BMI 2024-01-09 20:16:00 24.84 kg/m2 [facility] Oxygen saturation in Arterial blood by Pulse oximetry 2024-01-09 20:16:00 98 /min [facility] Systolic blood pressure 2023-09-17 00:59:00 136 mm[Hg] [facility] Diastolic blood pressure 2023-09-17 00:59:00 80 mm[Hg] [facility] Heart rate 2023-09-17 00:59:00 62 /min [facility] Body temperature 2023-09-17 00:59:00 36.78 Fauzia [facility] Respiratory rate 2023-09-17 00:59:00 17 /min [facility] Body weight 2023-09-17 00:59:00 52.617 kg [facility] BMI 2023-09-17 00:59:00 23.43 kg/m2 [facility] Oxygen saturation in Arterial blood by Pulse oximetry 2023-09-17 00:59:00 98 /min [facility] Systolic blood pressure 2023-09-11 13:27:00 147 mm[Hg] [facility] Diastolic blood pressure 2023-09-11 13:27:00 78 mm[Hg] [facility] Heart rate 2023-09-11 13:27:00 71 /min [facility] Body height 2023-09-11 13:27:00 149.9 cm [facility] Body weight 2023-09-11 13:27:00 53.524 kg [facility] BMI 2023-09-11 13:27:00 23.83 kg/m2 [facility] Oxygen saturation in Arterial blood by Pulse oximetry 2023-09-11 13:27:00 97 /min [facility] Systolic blood pressure 2023-09-10 14:07:00 150 mm[Hg] [facility] Diastolic blood pressure 2023-09-10 14:07:00 83 mm[Hg] [facility] Heart rate 2023-09-10 14:06:00 65 /min [facility] Body height 2023-09-10 14:06:00 149.9 cm [facility] Body weight 2023-09-10 14:06:00 53.842 kg [facility] BMI 2023-09-10 14:06:00 23.97 kg/m2 [facility] Oxygen saturation in Arterial blood by Pulse oximetry 2023-09-10 14:06:00 98 /min [facility] Systolic blood pressure 2023-09-10 01:22:00 132 mm[Hg] [facility] Diastolic blood pressure 2023-09-10 01:22:00 89 mm[Hg] [facility] Heart rate 2023-09-10 01:22:00 63 /min [facility] Body temperature 2023-09-10 01:22:00 36.28 Fauzia [facility] Respiratory rate 2023-09-10 01:22:00 17 /min [facility] Body height 2023-09-10 01:22:00 149.9 cm [facility] Body weight 2023-09-10 01:22:00 53.695 kg [facility] BMI 2023-09-10 01:22:00 23.91 kg/m2 [facility] Oxygen saturation in Arterial blood by Pulse oximetry 2023-09-10 01:22:00 100 /min [facility] Systolic blood pressure 2023-09-06 00:30:00 116 mm[Hg] [facility] Diastolic blood pressure 2023-09-06 00:30:00 72 mm[Hg] [facility] Heart rate 2023-09-06 00:30:00 69 /min [facility] Body temperature 2023-09-06 00:30:00 36.78 Fauzia [facility] Respiratory rate 2023-09-06 00:30:00 18 /min [facility] Body weight 2023-09-06 00:30:00 52.617 kg [facility] BMI 2023-09-06 00:30:00 23.43 kg/m2 [facility] Oxygen saturation in Arterial blood by Pulse oximetry 2023-09-06 00:30:00 99 /min [facility] Systolic blood pressure 2023-09-03 00:35:00 157 mm[Hg] [facility] Diastolic blood pressure 2023-09-03 00:35:00 92 mm[Hg] [facility] Heart rate 2023-09-03 00:35:00 64 /min [facility] Body temperature 2023-09-03 00:35:00 36.94 Fauzia [facility] Respiratory rate 2023-09-03 00:35:00 16 /min [facility] Body height 2023-09-03 00:35:00 149.9 cm [facility] Body weight 2023-09-03 00:35:00 52.164 kg [facility] BMI 2023-09-03 00:35:00 23.23 kg/m2 [facility] Oxygen saturation in Arterial blood by Pulse oximetry 2023-09-03 00:35:00 100 /min [facility] Systolic blood pressure 2023-08-26 00:04:00 108 mm[Hg] [facility] Diastolic blood pressure 2023-08-26 00:04:00 67 mm[Hg] [facility] Heart rate 2023-08-26 00:04:00 65 /min [facility] Body temperature 2023-08-26 00:04:00 36.78 Fauzia [facility] Respiratory rate 2023-08-26 00:04:00 17 /min [facility] Body height 2023-08-26 00:04:00 [facility] 2023-08-26 00:04:00 52.787 kg [facility] BMI 2023-08-26 00:04:00 23.50 kg/m2 [facility] Oxygen saturation in Arterial blood by Pulse oximetry 2023-08-26 00:04:00 96 /min [facility] Body weight 2023-06-19 19:24:00 54.432 kg [facility] 2023-06-19 19:24:00 24.24 kg/m2 [facility] Systolic blood pressure 2023-06-18 21:19:00 119 mm[Hg] [facility] Diastolic blood pressure 2023-06-18 21:19:00 73 mm[Hg] [facility] Heart rate 2023-06-18 21:19:00 66 /min [facility] Body temperature 2023-06-18 21:19:00 37.17 Fauzia [facility] Respiratory rate 2023-06-18 21:19:00 16 /min [facility] Body height 2023-06-18 21:19:00 149.9 cm [facility] 2023-06-18 21:19:00 54.432 kg [facility] BMI 2023-06-18 21:19:00 24.24 kg/m2 [facility] Oxygen saturation in Arterial blood by Pulse oximetry 2023-06-18 21:19:00 97 /min [facility] Systolic blood pressure 2023-06-13 00:25:00 104 mm[Hg] [facility] Diastolic blood pressure 2023-06-13 00:25:00 70 mm[Hg] [facility] Heart rate 2023-06-13 00:25:00 81 /min [facility] Respiratory rate 2023-06-13 00:25:00 12 /min [facility] Oxygen saturation in Arterial blood by Pulse oximetry 2023-06-13 00:25:00 95 /min [facility] Body temperature 2023-06-12 23:11:00 36 Fauzia [facility] Body height 2023-06-12 18:16:00 149.9 cm [facility] 2023-06-12 18:16:00 54.432 kg [facility] BMI 2023-06-12 18:16:00 24.24 kg/m2 [facility] Systolic blood pressure 2023-06-12 18:16:00 111 mm[Hg] [facility] Diastolic blood pressure 2023-06-12 18:16:00 70 mm[Hg] [facility] Heart rate 2023-06-12 18:16:00 88 /min [facility] Body temperature 2023-06-12 18:16:00 36.89 Fauzia [facility] Respiratory rate 2023-06-12 18:16:00 18 /min [facility] Body height 2023-06-12 18:16:00 149.9 cm [facility] Body weight 2023-06-12 18:16:00 54.432 kg [facility] BMI 2023-06-12 18:16:00 24.24 kg/m2 [facility] Oxygen saturation in Arterial blood by Pulse oximetry 2023-06-12 18:16:00 98 /min [facility] Systolic blood pressure 2023-06-05 03:07:00 165 mm[Hg] [facility] Diastolic blood pressure 2023-06-05 03:07:00 83 mm[Hg] [facility] Heart rate 2023-06-05 03:07:00 86 /min [facility] Body temperature 2023-06-05 03:07:00 37.72 Fauzia [facility] Respiratory rate 2023-06-05 03:07:00 18 /min [facility] Oxygen saturation in Arterial blood by Pulse oximetry 2023-06-05 03:07:00 97 /min [facility] Body height 2023-06-04 22:16:00 149.9 cm [facility] 2023-06-04 22:16:00 54.432 kg [facility] BMI 2023-06-04 22:16:00 24.24 kg/m2 [facility] Systolic blood pressure 2023-06-03 21:08:00 156 mm[Hg] [facility] Diastolic blood pressure 2023-06-03 21:08:00 82 mm[Hg] [facility] Heart rate 2023-06-03 21:08:00 88 /min [facility] Body temperature 2023-06-03 21:08:00 36.72 Fauzia [facility] Respiratory rate 2023-06-03 21:08:00 18 /min [facility] Oxygen saturation in Arterial blood by Pulse oximetry 2023-06-03 21:08:00 96 /min [facility] Body weight 2023-06-03 09:22:00 55.974 kg [facility] BMI 2023-06-03 09:22:00 24.92 kg/m2 [facility] Body height 2023-06-02 16:13:00 149.9 cm [facility] Systolic blood pressure 2023-06-02 18:50:00 112 mm[Hg] [facility] Diastolic blood pressure 2023-06-02 18:50:00 61 mm[Hg] [facility] Heart rate 2023-06-02 18:50:00 80 /min [facility] Respiratory rate 2023-06-02 18:50:00 16 /min [facility] Oxygen saturation in Arterial blood by Pulse oximetry 2023-06-02 18:50:00 95 /min [facility] Body temperature 2023-06-02 18:19:00 38 Fauzia [facility] Body height 2023-06-02 16:13:00 149.9 cm [facility] Body weight 2023-06-02 16:13:00 56.246 kg [facility] BMI 2023-06-02 16:13:00 24.92 kg/m2 [facility] BP Diastolic 2023-05-02 00:00:00 72 mm[Hg] [facility] BP Systolic 2023-05-02 00:00:00 117 mm[Hg] [facility] BMI (Body Mass Index) 2023-05-02 00:00:00 25.2 kg/m2 [facility] Height 2023-05-02 00:00:00 59 [in_i] [facility] Body Weight 2023-05-02 00:00:00 125 [lb_av] [facility] BP Systolic 2023-01-23 00:00:00 129 mm[Hg] [facility] BMI (Body Mass Index) 2023-01-23 00:00:00 24.9 kg/m2 [facility] Height 2023-01-23 00:00:00 59 [in_i] [facility] BP Diastolic 2023-01-23 00:00:00 78 mm[Hg] [facility] Body Weight 2023-01-23 00:00:00 123.4 [lb_av] [facility] BP Diastolic 2022-05-30 00:00:00 81 mm[Hg] [facility] Height 2022-05-30 00:00:00 59 [in_i] [facility] BMI (Body Mass Index) 2022-05-30 00:00:00 23.7 kg/m2 [facility] BP Systolic 2022-05-30 00:00:00 130 mm[Hg] [facility] Body Weight 2022-05-30 00:00:00 117.4 [lb_av] [facility] BP Diastolic 2022-04-25 00:00:00 79 mm[Hg] [facility] Height 2022-04-25 00:00:00 59 [in_i] [facility] BMI (Body Mass Index) 2022-04-25 00:00:00 23.7 kg/m2 [facility] BP Systolic 2022-04-25 00:00:00 124 mm[Hg] [facility] Body Weight 2022-04-25 00:00:00 117.4 [lb_av] [facility] BP Diastolic 2022-03-28 00:00:00 83 mm[Hg] [facility] Height 2022-03-28 00:00:00 59 [in_i] [facility] BMI (Body Mass Index) 2022-03-28 00:00:00 23.2 kg/m2 [facility] BP Systolic 2022-03-28 00:00:00 126 mm[Hg] [facility] Body Weight 2022-03-28 00:00:00 115 [lb_av] [facility] BP Diastolic 2021-10-11 00:00:00 60 mm[Hg] [facility] Height 2021-10-11 00:00:00 59 [in_i] [facility] BMI (Body Mass Index) 2021-10-11 00:00:00 26.3 kg/m2 [facility] BP Systolic 2021-10-11 00:00:00 89 mm[Hg] [facility] Body Weight 2021-10-11 00:00:00 130 [lb_av] [facility] Systolic blood pressure 2021-09-27 14:48:37 157 mm[Hg] [facility] Diastolic blood pressure 2021-09-27 14:48:37 88 mm[Hg] [facility] Heart rate 2021-09-27 14:48:37 87 /min [facility] Respiratory rate 2021-09-27 14:48:37 18 /min [facility] Oxygen saturation in Arterial blood by Pulse oximetry 2021-09-27 14:48:37 98 /min [facility] Body temperature 2021-09-27 04:25:10 36.72 Fauzia [facility] Body height 2021-09-27 03:49:00 149.9 cm [facility] Body weight 2021-09-27 03:49:00 54.432 kg [facility] BMI 2021-09-27 03:49:00 24.24 kg/m2 [facility] [facility] BP Diastolic 2021-06-13 00:00:00 79 mm[Hg] [facility] Height 2021-06-13 00:00:00 59 [in_i] [facility] BMI (Body Mass Index) 2021-06-13 00:00:00 25.6 kg/m2 [facility] BP Systolic 2021-06-13 00:00:00 141 mm[Hg] [facility] Body Weight 2021-06-13 00:00:00 126.8 [lb_av] [facility] BP Diastolic 2021-03-22 00:00:00 82 mm[Hg] [facility] Height 2021-03-22 00:00:00 59 [in_i] [facility] BMI (Body Mass Index) 2021-03-22 00:00:00 24 kg/m2 [facility] BP Systolic 2021-03-22 00:00:00 120 mm[Hg] [facility] Body Weight 2021-03-22 00:00:00 119 [lb_av] [facility] BP Systolic 2024-07-26 14:36:00 88 mm[Hg] Step hen F [facility] BP Diastolic 2024-07-26 14:36:00 74 mm[Hg] Tyson phen F [facility] Weight Measured 2024-07-26 14:36:00 130.00 pounds Jones F [facility] Height Measured 2024-07-26 14:36:00 60.00 inches Jones F [facility] Body Temperature 2024-07-26 14:36:00 97.90 degrees Jones F [facility] Heart Rate 2024-07-26 14:36:00 88.00 /min Elizabeth en F [facility] Respiratory Rate 2024-07-26 14:36:00 18.00 /min Jones F [facility] Weight Measured 2024-07-02 14:13:00 127.00 pounds Jones F [facility] Height Measured 2024-07-02 14:13:00 60.00 inches Jones F [facility] Body Temperature 2024-07-02 14:13:00 98.20 degrees Jones F [facility] Heart Rate 2024-07-02 14:13:00 78.00 /min Elizabeth en F [facility] Respiratory Rate 2024-07-02 14:13:00 18.00 /min Jones F [facility] BP Systolic 2024-07-02 14:13:00 105 mm[Hg] Step hen F [facility] BP Diastolic 2024-07-02 14:13:00 58 mm[Hg] Tyson phen F [facility] BP Systolic 2024-06-08 17:20:00 110 mm[Hg] Step hen F [facility] BP Diastolic 2024-06-08 17:20:00 71 mm[Hg] Tyson phen F [facility] Weight Measured 2024-06-08 17:20:00 133.00 pounds Jones F [facility] Height Measured 2024-06-08 17:20:00 60.00 inches Jones F [facility] Body Temperature 2024-06-08 17:20:00 98.30 degrees Jones F [facility] Heart Rate 2024-06-08 17:20:00 91.00 /min Elizabeth en F [facility] Respiratory Rate 2024-06-08 17:20:00 19.00 /min Jones F [facility] BP Systolic 2024-05-25 13:26:00 142 mm[Hg] Step [...] Body Temperature 2024-05-19 15:57:00 97.90 degrees Jones Brower Heart Rate 2024-05-19 15:57:00 77.00 /min Elizabeth en F [facility] Respiratory Rate 2024-05-19 15:57:00 20.00 /min Jonesvera Brower Heart Rate 2024-05-10 15:18:00 90.00 /min Elizabeth en F [facility] Respiratory Rate 2024-05-10 15:18:00 20.00 /min Jonesvera Brower BP Systolic 2024-05-10 15:18:00 108 mm[Hg] Step hen Pepe Brower BP Diastolic 2024-05-10 15:18:00 74 mm[Hg] Tyson Brower Weight Measured 2024-05-10 15:18:00 133.00 pounds Jones Brower Height Measured 2024-05-10 15:18:00 60.00 inches Jones Cantu [facility] Body Temperature 2024-05-10 15:18:00 98.00 degrees Jones Brower Systolic blood pressure 2023-09-10 14:07:00 150 mm[Hg] [facility] Diastolic blood pressure 2023-09-10 14:07:00 83 mm[Hg] [facility] Heart rate 2023-09-10 14:06:00 65 /min [facility] Body height 2023-09-10 14:06:00 149.9 cm [facility] Body weight 2023-09-10 14:06:00 53.842 kg [facility] BMI 2023-09-10 14:06:00 23.97 kg/m2 [facility] Oxygen saturation in Arterial blood by Pulse oximetry 2023-09-10 14:06:00 98 /min [facility] Body temperature 2023-09-10 01:22:00 36.28 Fauzia [facility] Respiratory rate 2023-09-10 01:22:00 17 /min [facility] Procedures Procedure Date / Time Performed Performing Clinician Source URINE CULTURE 2024-02-27 20:53:00 Magdalena Wise [facility] POCT URINALYSIS 2024-02-27 00:00:00 Magdalena Wise [facility] POCT URINALYSIS 2024-01-09 21:46:[address] [facility] MITOCHONDRIAL M2 AB, IGG 2024-01-09 21:02:00 Lynsey Dangelo [facility] TRIIODOTHYRONINE 2024-01-09 21:02:00 Martha Dangelo [facility] COMP. METABOLIC PANEL (10736) 2024-01-09 21:02:00 Martha Dangelo [facility] ANTI-NUCLEAR ANTIBODY SCREEN 2024-01-09 21:02:00 Martha Dangelo [facility] HEPATITIS B SURFACE ANTIBODY 2024-01-09 21:02:00 Martha Dangelo [facility] HEPATITIS B SURFACE ANTIGEN 2024-01-09 21:02:00 Martha Dangelo [facility] HCV ANTIBODY 2024-01-09 21:02:00 Martha Dangelo [facility] HAV ANTIBODY (IGG AND IGM) 2024-01-09 21:02:00 Martha Dangelo [facility] ANTI-NUCLEAR ANTIBODY TITER 2024-01-09 21:02:00 Martha Dangelo [facility] ANTI-NUCLEAR ANTIBODY-PATHOLOGIST INTERPRETATION 2024-01-09 21:02:00 Martha Dangelo [facility] RABIES VACCINE, IM 2023-09-17 01:00:58 Doctor Un assigned, [place] [facility] MICROALBUMIN URINE 2023-09-10 14:57:00 [facility]ONE 2023-09-10 14:55:00 Martha Dangelo [facility] COMP. METABOLIC PANEL (33540) 2023-09-10 14:55:00 Martha Dangelo [facility] LIPID PANEL (63396)(TOTAL CHOLESTEROL, TRIGLYCERIDES, HDL) 2023-09-10 14:55:00 Martha Dangelo [facility] CBC WITH DIFF 2023-09-10 14:55:00 Martha Dangelo [facility] COMP. METABOLIC PANEL (65698) 2023-09-10 14:55:00 Martha Dangelo [facility] GLYCOSYLATED HEMOGLOBIN (A1C) 2023-09-10 14:55:00 Martha Dangelo [facility] LIPID PANEL (56213)(TOTAL CHOLESTEROL, TRIGLYCERIDES, HDL) 2023-09-10 14:55:00 Martha Dangelo [facility] THYROID STIMULATING HORMONE 2023-09-10 14:55:00 Martha Dangelo [facility] FREE T4 2023-09-10 14:55:00 Martha Dangelo [facility] RABIES VACCINE, IM 2023-09-10 01:25:48 Doctor Un assigned, [place] [facility] RABIES VACCINE, IM 2023-09-10 01:25:48 Doctor Un assigned, [place] [facility] RABIES VACCINE, 2023-09-06 00:50:30 [facility] 2023-09-06 00:50:30 Madeline Simons Un [facility] XR RIBS 3 VW LEFT 2023-08-26 01:03:20 See Min [facility] XR RIBS 3 VW LEFT 2023-08-26 01:03:20 See Min [facility] XR HAND 3+ VW RIGHT 2023-08-26 01:03:00 Sade Min [facility] XR HAND 3+ VW RIGHT 2023-08-26 01:03:00 Sade Min [facility] CT ABDOMEN PELVIS WO CONTRAST 2023-06-21 20:34:50 Mikayal Florez [facility] REFERRAL- REQUEST/RESPONSE 2023-06-18 21:13:52 D octor Unassigned, [place] [facility] REFERRAL- REQUEST/RESPONSE 2023-06-18 21:13:52 D octor Unassigned, [place] [facility] REFERRAL- REQUEST/RESPONSE 2023-06-18 20:59:23 D octor Unassigned, [place] [facility] REFERRAL- REQUEST/RESPONSE 2023-06-18 20:59:23 D octor Unassigned, [place] [facility] FL TIME OR (NON-REPORTABLE) 2023-06-12 23:10:00 Alzweri, [facility] URINE CULTURE 2023-06-12 22:38:00 [facility] 2023-06-12 21:52:00 [facility] URETEROSCOPIC STONE MANIPULATION 2023-06-12 21:35:00 Rosey [facility] URETEROSCOPIC STONE MANIPULATION 2023-06-12 21:35:00 Rosey [facility] URETEROSCOPIC STONE MANIPULATION 2023-06-12 21:35:00 Rosey [facility] URETEROSCOPIC STONE MANIPULATION 2023-06-12 21:35:00 [facility]IPULATION 2023-06-12 21:35:00 Rafael [facility] URETEROSCOPIC STONE MANIPULATION 2023-06-12 21:35:00 [facility] URETEROSCOPIC STONE MANIPULATION 2023-06-12 21:35:00 Rosey [facility] [address] - [place] CYSTO/URETERO W/LITHOTRIPSY &INDWELL STENT INSRT 2023-06-12 21:35:00 Rosey [facility] 79047 - [place] CYSTO W/URETEROSCOPY W/RMVL/MANJ STONES 2023-06-12 21:35:00 Rosey [facility] [address]8432 - [place] CYSTO W/URETEROSCOPY W/LITHOTRIPSY 2023-06-12 21:35:00 Rosey [facility] 23760 - [place] CYSTO W/SIMPLE REMOVAL STONE & STENT 2023-06-12 21:35:00 Rosey [facility] [address] - [place] CYSTO W/COMPLEX REMOVAL STONE & STENT 2023-06-12 21:35:00 Rafael [facility] [address] - [place] CYSTO W/INSERT URETERAL STENT 2023-06-12 21:35:00 [facility] - CHG UROGRAPHY RETROGRADE WITH/WO KUB 2023-06-12 21:35:00 Rosey [facility] POCT GLUCOSE (AUTOMATED) 2023-06-12 18:33:00 [facility] POCT GLUCOSE (AUTOMATED) 2023-06-12 18:33:00 [facility] POCT GLUCOSE (AUTOMATED) 2023-06-12 18:33:00 [facility] URINALYSIS 2023-06-05 01:27:00 Mark [facility] COMP. METABOLIC PANEL ([id number]) 2023-06-05 00:42:00 Mark [facility] CBC WITH DIFF 2023-06-05 00:42:00 Mark [facility] CONSENT/REFUSAL FOR DIAGNOSIS AND TREATMENT 2023-06-04 22:10:48 Doctor Unassigned, [place] [facility] POCT GLUCOSE (AUTOMATED) 2023-06-03 17:25:00 Ra damon Sanchez [facility] POCT GLUCOSE (AUTOMATED) 2023-06-03 17:25:00 Ra damon Sanchez [facility] POCT GLUCOSE (AUTOMATED) 2023-06-03 12:57:00 Ra damon Sanchez [facility] POCT GLUCOSE (AUTOMATED) 2023-06-03 12:57:00 Ra damon Sanchez [facility] PHOSPHORUS 2023-06-03 09:29:00 Calvin [facility] MAGNESIUM 2023-06-03 09:29:00 Calvin Nova [facility] BASIC METABOLIC PANEL (NA, K, CL, CO2, GLUCOSE, BUN, CREATININE, CA) 2023-06-03 09:29:00 Calvin Nova [facility] PHOSPHORUS 2023-06-03 09:29:00 Calvin Nova [facility] MAGNESIUM 2023-06-03 09:29:00 Calvin Nova [facility] BASIC METABOLIC PANEL (NA, K, CL, CO2, GLUCOSE, BUN, CREATININE, CA) 2023-06-03 09:29:00 Heidari, [facility] CBC WITH DIFF 2023-06-03 08:12:00 [facility] CBC WITH DIFF 2023-06-03 08:12:00 Nicolepr [facility] POCT GLUCOSE (AUTOMATED) 2023-06-03 08:11:00 Ra admon Sanchez [facility] POCT GLUCOSE (AUTOMATED) 2023-06-03 08:11:00 Ra Daniel [facility] POCT GLUCOSE (AUTOMATED) 2023-06-03 05:03:00 Ra Daniel [facility] POCT GLUCOSE (AUTOMATED) 2023-06-03 05:03:00 Ra Daniel [facility] POCT GLUCOSE (AUTOMATED) 2023-06-03 01:49:00 Ra Daniel [facility] POCT GLUCOSE (AUTOMATED) 2023-06-03 01:49:00 Ra Daniel [facility] POCT GLUCOSE (AUTOMATED) 2023-06-02 21:36:00 Ra Daniel [facility] POCT GLUCOSE (AUTOMATED) 2023-06-02 21:36:00 Ra damon Sanchez [facility] FL TIME OR (NON-REPORTABLE) 2023-06-02 18:10:56 Margaret Tena [facility] FL TIME OR (NON-REPORTABLE) 2023-06-02 18:10:56 Margaret Tena [facility] URINE CULTURE 2023-06-02 18:02:00 Carlos [facility] URINE CULTURE 2023-06-02 18:02:[address] [facility] CYSTOSCOPY WITH INSERTION STENT URETER 2023-06-02 17:18:00 [facility] 2023-06-02 17:18:00 Magdiel Gomes [facility] CYSTOSCOPY WITH INSERTION STENT URETER 2023-06-02 17:18:00 [facility] 2023-06-02 17:18:00 Magdiel Gomes [facility] URINALYSIS 2023-06-02 16:11:00 [facility] URINALYSIS 2023-06-02 16:11:00 Margaret Tena [facility] PHOSPHORUS 2023-06-02 09:52:[address] [facility] MAGNESIUM 2023-06-02 09:52:00 Avtar [facility] THYROID STIMULATING HORMONE 2023-06-02 09:52:00 Avtar [facility] BASIC METABOLIC PANEL (NA, K, CL, CO2, GLUCOSE, BUN, CREATININE, CA) 2023-06-02 09:52:00 Avtar [facility] LIPID PANEL ([id number])(TOTAL CHOLESTEROL, TRIGLYCERIDES, HDL) 2023-06-02 09:52:00 Avtar [facility] CBC WITH DIFF 2023-06-02 09:52:00 Avtar [facility] GLYCOSYLATED HEMOGLOBIN (A1C) 2023-06-02 09:52:00 Avtar [facility] PHOSPHORUS 2023-06-02 09:52:00 Avtar [facility] MAGNESIUM 2023-06-02 09:52:00 Avtar [facility] THYROID STIMULATING HORMONE 2023-06-02 09:52:00 Avtar [facility] BASIC METABOLIC PANEL (NA, K, CL, CO2, GLUCOSE, BUN, CREATININE, CA) 2023-06-02 09:52:00 Avtar [facility] LIPID PANEL ([id number])(TOTAL CHOLESTEROL, TRIGLYCERIDES, HDL) 2023-06-02 09:52:00 Avtar [facility] CBC WITH DIFF 2023-06-02 09:52[facility] GLYCOSYLATED HEMOGLOBIN (A1C) 2023-06-02 09:52:00 Avtar [facility] POCT GLUCOSE (AUTOMATED) 2023-06-02 01:57:00 Avtar [facility] POCT GLUCOSE (AUTOMATED) 2023-06-02 01:57:00 Calvin Nova [facility] BLOOD CULTURE SCREEN 2023-06-01 22:49:00 Ger Nova am [facility] BLOOD CULTURE SCREEN 2023-06-01 22:49:00 Ger Nova am [facility] POCT GLUCOSE(AGE >30DAYS) 2023-06-01 22:27:00 Avtar [facility] POCT GLUCOSE(AGE >30DAYS) 2023-06-01 22:27:00 Avtar Calvin [facility] POCT GLUCOSE (AUTOMATED) 2023-06-01 22:26:00 Avtar [facility] POCT GLUCOSE (AUTOMATED) 2023-06-01 22:26:00 Avtar [facility] BLOOD CULTURE SCREEN 2023-06-01 22:06:00 Ger Nova am [facility] BLOOD CULTURE SCREEN 2023-06-01 22:06:00 Ger Nova am [facility] XR CHEST 2 VW 2023-06-01 17:34:00 Rc Peng [facility] XR CHEST 2 VW 2023-06-01 17:34:00 Rc Peng [facility] CT ABDOMEN PELVIS WO CONTRAST 2023-06-01 17:23:00 Rc Peng [facility] CT ABDOMEN PELVIS WO CONTRAST 2023-06-01 17:23:00 Rc Peng [facility] LIPASE 2023-06-01 16:31:00 Rc Peng [facility] COMP. METABOLIC PANEL ([id number]) 2023-06-01 16:31:00 Rc Peng [facility] CBC WITH DIFF 2023-06-01 16:31:00 Rc Peng [facility] URINALYSIS 2023-06-01 16:31:00 Rc Peng [facility] URINE CULTURE 2023-06-01 16:31:00 Rc Peng [facility] EXTRA TUBE URINE CULTURE 2023-06-01 16:31:00 Raf Peng [facility] LIPASE 2023-06-01 16:31:00 Rc Peng [facility] COMP. METABOLIC PANEL ([id number]) 2023-06-01 16:31:00 [facility] 2023-06-01 16:31:00 Rc Peng [facility] URINALYSIS 2023-06-01 16:31:00 Rc Peng [facility] URINE CULTURE 2023-06-01 16:31:00 Rc Peng [facility] EXTRA TUBE URINE CULTURE 2023-06-01 16:31:00 Raf Peng [facility] CONSENT/REFUSAL FOR DIAGNOSIS AND TREATMENT 2023-06-01 16:13:14 Doctor Unassigned, [place] [facility] CONSENT/REFUSAL FOR DIAGNOSIS AND TREATMENT 2023-06-01 16:13:14 Doctor Unassigned, [place] [facility] MAMMO, screening, digital, bilateral 2023-01-23 00:00:00 [facility] MAMMO, screening, tomosynthesis, bilateral, w/ CAD 2022-05-30 00:00:00 [facility] MEDICATION CORRESPONDENCE 2021-10-26 05:01:00 Do ctor Unassigned, [place] [facility] EKG-12 LEAD 2021-09-27 11:30:18 Jayden Knight [facility] ETHANOL 2021-09-27 09:11:00 Jayden Knight [facility] CBC WITH DIFF 2021-09-27 06:19:00 Jayden Knight [facility] COVID-19 (ID NOW RAPID TESTING) 2021-09-27 06:19:00 Jayden Knight [facility] CT ABDOMEN PELVIS W CONTRAST 2021-09-27 05:55:00 Jayden Knight [facility] CREATINE KINASE 2021-09-27 04:36:00 Jayden Knight [facility] TROPONIN I 2021-09-27 04:36:00 Jayden Knight [facility] THYROID STIMULATING HORMONE 2021-09-27 04:36:00 Jayden Knight [facility] COMP. METABOLIC PANEL ([id number]) 2021-09-27 04:36:00 Jayden Knight [facility] SALICYLATE 2021-09-27 04:36:00 Jayden Knight [facility] ETHANOL 2021-09-27 04:36:00 Jayden Knight [facility] XR CHEST 1 VW 2021-09-27 04:25:00 Jayden Knight [facility] URINALYSIS 2021-09-27 04:18:00 Jayden Knight [facility] URINE DRUG (IMMUNOASSAY) - COMPREHENSIVE DRUG SCREEN W/O REFLEX 2021-09-27 04:18:00 Jayden Knight [facility] ASSIGNMENT OF BENEFITS 2021-09-27 03:30:08 Docto r Unassigned, [place] [facility] CONSENT/REFUSAL FOR DIAGNOSIS AND TREATMENT 2021-09-27 03:29:46 Doctor Unassigned, [place] [facility] X-RAY OF FOOT 3+ VIEW 2021-06-13 00:00:00 [facility] COLONOSCOPY (ENDO) 2020-12-06 13:34:50 Bob Min [facility] CT LUNG CANCER SCREENING 2020-12-04 20:57:13 Bob Min [facility] BI SCREENING TOMOSYNTHESIS BILATERAL 2020-12-04 20:40:46 Bob Min [facility] HCV ANTIBODY 2013-09-07 15:00:00 Glenny Arreola [facility] Hysterectomy (Total) [facility] Colon Surgery [facility] Cholecystectomy [facility] Plan of Care Planned Activity Planned Date Details Comments Source Diagnostic Test Pending 2023-01-23 00:00:00 hemoglobin A1C, fingerstick [code = hemoglobin A1C, fingerstick] [facility] Diagnostic Test Pending 2023-01-23 00:00:00 CMP, serum or plasma [code = CMP, serum or plasma] [facility] Diagnostic Test Pending 2023-01-23 00:00:00 CBC w/ auto diff [code = CBC w/ auto diff] [facility] Diagnostic Test Pending 2023-01-23 00:00:00 lipid panel, serum [code = lipid panel, serum] [facility] Diagnostic Test Pending 2023-01-23 00:00:00 vitamin D, 25-hydroxy, total, serum [code = vitamin D, 25-hydroxy, total, serum] [facility] Encounters Start Date/Time End Date/Time Encounter Type Admission Type Attending [facility] Care Facility Care Department Encounter ID Source 2023-06-19 13:43:36 Outpatient R GAUTAMERWINROCHELLE [facility] SUU [id number] [facility] 2023-05-27 12:30:00 Inpatient EM Cristian Laguna [facility] [id number] [facility] 2021-01-15 20:17:20 Emergency [facility] [id number] [facility] 2021-01-15 20:08:02 Emergency [facility] [id number] [facility] 2024-07-26 14:26:09 2024-07-26 14:26:09 Outpatient SFA S[facility] [id number] Jones Brower 2024-07-26 00:00:00 2024-07-26 00:00:00 Outpatient Visit SFA [id number] Jones Brower 2024-07-19 00:00:00 2024-07-19 20:20:11 Thuy Montenegro [facility] [id number] 350.1.13.10 4.2.7.2.686 [id number] [facility] 2024-07-02 14:06:50 2024-07-02 14:06:50 Outpatient SFA SFA [id number] Jones Brower 2024-07-02 00:00:00 2024-07-02 00:00:00 Outpatient Visit SFA [id number] Jones Brower 2024-06-08 16:55:14 2024-06-08 16:55:14 Outpatient [facility] [id number] Jones Brower 2024-06-08 00:00:00 2024-06-08 00:00:00 Outpatient Visit SFA [id number] Jones Brower 2024-05-25 10:40:10 2024-05-25 10:40:10 Outpatient [facility] [id number] Jones Brower 2024-05-25 00:00:00 2024-05-25 00:00:00 Outpatient Visit SFA [id number] Jones Brower 2024-05-19 00:00:00 2024-05-19 00:00:00 Outpatient Visit SFA [id number] Jones Brower 2024-05-13 00:00:00 2024-05-13 07:59:22 Nicolette Jones [facility] ..840.114 350.1.13.10 4.2.7.2.686 [id number] [facility] 2024-05-11 08:13:57 2024-05-11 08:13:57 Outpatient [facility] [id number] Jones Brower 2024-05-10 15:35:58 2024-05-10 15:35:58 Outpatient [facility] [id number] Jones Brower 2024-05-10 00:00:00 2024-05-10 00:00:00 Outpatient Visit SFA [id number] Jones Brower 2016-05-29 00:00:00 2024-05-01 03:54:45 Orders Only Doctor Unassigned, [place] Doctor Unassigned, [place]ird [facility] 1..840.114 350.1.13.10 4.2.7.2.686 [id number] [facility] 2016-05-29 00:00:00 2024-05-01 03:54:44 Orders Only Doctor Unassigned, [place] Doctor Unassigned, [place]ird [facility] [id number] 350.1.13.10 4.2.7.2.686 [id number] [facility] 2023-06-18 00:00:00 2024-05-01 02:28:19 Orders Only Doctor Unassigned, [place] Doctor Unassigned, [place]ird [facility] 1.2840.114 350.1.13.10 4.2.7.2.686 [id number] [facility] 2023-06-18 00:00:00 2024-05-01 02:28:17 Orders Only Doctor Unassigned, [place] Doctor Unassigned, [place]ird [facility] 1.2840.114 350.1.13.10 4.2.7.2.686 [id number] [facility] 2024-04-09 16:00:00 2024-04-09 16:00:00 Outpatient R THUY DIANE [facility] [id number] [facility] 2024-04-02 00:00:00 2024-04-02 00:00:00 Outpatient R NICOLETTE BLAS [facility] [id number] [facility] 2024-03-26 13:45:00 2024-03-26 13:45:00 Outpatient R CARLOS GOMES [facility] [id number] [facility] 2024-03-18 00:00:00 2024-03-18 16:25:15 Martha Riley [facility] 1..840.114 350.1.13.10 4.2.7.2.686 [id number] [facility] 2024-03-16 15:00:00 2024-03-16 15:21:15 Outpatient R NICOLETTE BLAS [facility] [id number] [facility] 2024-03-16 15:00:00 2024-03-16 15:21:15 Office Visit Nicolette Blas [facility] 1.2840.114 350.1.13.10 4.2.7.2.686 [id number] [facility] 2024-03-15 00:00:00 2024-03-16 10:11:09 [facility] [id number] [id number] [facility] 2024-03-06 00:00:00 2024-03-06 10:21:52 [facility] [id number] [id number] [facility] 2024-02-27 15:00:00 2024-02-27 15:15:00 Road Repairer Visit Lab, Abel - Magdalena Oneill Lab, Abel - Oren [facility] 1.84.114 350.1.13.10 4.2.7.2.686 [id number] [facility] 2024-02-27 14:30:00 2024-02-27 14:42:32 Outpatient R MAGDALENA WISE [facility] [id number] [facility] 2024-02-27 14:30:00 2024-02-27 14:42:32 Office Visit [facility] BU[facility] 1.284.114 350.1.13.10 4.2.7.2.686 [id number] [facility] 2024-01-14 00:00:00 2024-02-14 18:19:11 Patient Secure Msg Doctor Unassigned, Humbird Doctor Unassigned, Humbird ANDREA BUILDING 1.84.114 350.1.13.10 4.2.7.2.686 [id number] [facility] 2024-01-15 00:00:00 2024-01-16 07:33:17 RefMartha Castellanos [facility] OFF[facility] BUILD[facility] 1.84.114 350.1.13.10 4.2.7.2.686 [id number] [facility] 2024-01-14 00:00:00 2024-01-14 10:27:31 Patient Secure Msg Doctor Unassigned, Humbird Doctor Unassigned, Humbird [facility] 1.84.114 350.1.13.10 4.2.7.2.686 [id number] [facility] 2024-01-13 00:00:00 2024-01-13 16:29:34 Patient Secure Msg Doctor Unassigned, Humbird Doctor Unassigned, Humbird [facility] BU[facility] 1.284.114 350.1.13.10 4.2.7.2.686 [id number] [facility] 2024-01-09 16:30:00 2024-01-09 17:15:49 Outpatient R MARTHA DANGELO [facility] [id number] [facility] 2024-01-09 16:30:00 2024-01-09 17:15:49 Road Repairer Visit Lab, Martha Khanna Lab, Abel - Oren [facility] BUILD[facility] 1.2840.114 350.1.13.10 4.2.7.2.686 [id number] [facility] 2024-01-09 15:00:00 2024-01-09 15:45:37 Office Visit Martha Dangelo [facility] OFF[facility] BUILD[facility] 1.2.840.114 350.1.13.10 4.2.7.2.686 [id number] [facility] 2024-01-09 00:00:00 2024-01-09 10:43:14 Telephone Keisha Beckman Leticia [facility] MED[facility] OFF[facility] BUILDING 1.2.840.114 350.1.13.10 4.2.7.2.686 [id number] [facility] 2024-01-09 09:20:00 2024-01-09 09:20:00 Outpatient CIARAN LOPEZ [facility] [id number] [facility] 2023-12-12 08:00:00 2023-12-12 08:00:00 Outpatient R DARBY BROTHERS CRAIG [facility] [id number] [facility] 2023-12-09 00:00:00 2023-12-09 10:22:46 Refill Martha [facility]angelo [facility] 1.2.840.114 350.1.13.10 4.2.7.2.686 [id number] [facility] 2023-11-20 08:00:00 2023-11-20 08:00:00 Outpatient CLARIBEL SARABIA PAMELA [facility] [id number] [facility] 2023-10-16 08:00:00 2023-10-16 08:00:00 Outpatient CLARIBEL SARABIA PAMELA [facility] [id number] [facility] 2023-09-09 00:00:00 2023-10-11 18:20:52 Patient Secure Msg Doctor Unassigned, [facility]umbird [facility] 1..840.114 350.1.13.10 4.2.7.2.686 [id number] [facility] 2023-09-26 07:30:00 2023-09-26 07:30:00 Outpatient R SAMUEL SUE [facility] [id number] [facility] 2023-09-06 00:00:00 2023-09-25 08:14:14 Telephone Mad[facility]RAFAELSachi [facility] MED[facility] OFF[facility] BUILD[facility] 1..840.114 350.1.13.10 4.2.7.2.686 [id number] [facility] 2023-09-16 19:40:00 2023-09-16 20:06:27 Outpatient R MADELINE SIMONS [facility] [id number] [facility] 2023-09-16 19:40:00 2023-09-16 20:00:00 Nurse Visit NurseAbel Urgent Care Unknown, Attending [facility] 1.840.114 350.1.13.10 4.2.7.2.686 [id number] [facility] 2023-09-16 00:00:00 2023-09-16 10:28:59 Telephone Yuniel Thurman [facility] 1..840.114 350.1.13.10 4.2.7.2.686 [id number] [facility] 2023-09-15 18:00:00 2023-09-15 18:00:00 Outpatient R UNKNOWN, ATTENDING [facility] [id number] [facility] 2023-09-15 00:00:00 2023-09-15 11:50:22 Telephone Martha [facility] OFF[facility] BUILD[facility] 1..840.114 350.1.13.10 4.2.7.2.686 [id number] [facility] 2023-09-11 09:16:29 2023-09-11 23:59:00 Hospital Encounter KeriMartha cage [facility] MED[facility] OFF[facility] BUILDING 1.2.840.114 350.1.13.10 4.2.7.2.686 [id number] [facility] 2023-09-11 08:15:00 2023-09-11 09:16:34 Outpatient R DARBY BROTHERS DARBY [facility] [id number] [facility] 2023-09-11 08:15:00 2023-09-11 09:16:34 Office Visit Darby Brothers [facility] MED[facility] OFF[facility] BUILDING 1..840.114 350.1.13.10 4.2.7.2.686 [id number] [facility] 2023-09-10 09:53:16 2023-09-10 23:59:00 Outpatient R MARTHA DANGELO [facility] [id number] [facility] 2023-09-10 00:00:00 2023-09-10 17:31:14 Telephone AntolinMartha [facility] OFF[facility] BUILDING 1.2.840.114 350.1.13.10 4.2.7.2.686 [id number] [facility] 2023-09-10 10:00:00 2023-09-10 10:00:00 Road Repairer Visit Martha Dangelo Lab, Ang - Db 1.2.840.1 22149.1.1 3.104.2.7 .3.829264 .8 [id number] [facility] 2023-09-10 09:00:00 2023-09-10 09:47:49 Office Visit Martha Dangelo 1.2.840.1 86410.1.1 3.104.2.7 .3.300412 .8 [id number] [facility] 2023-09-09 20:30:00 2023-09-09 20:32:24 Outpatient R LUDMILA BEVERLY [facility] [id number] [facility] 2023-09-09 20:30:00 2023-09-09 20:32:24 Nurse Visit Ludmila Beverly [facility] 1.2.840.1 02739.1.1 3.104.2.7 .3.058988 .8 [id number] [facility] 2023-09-09 00:00:00 2023-09-09 00:00:00 Travel 1.2.840.1 53604.1.1 3.104.2.7 .3.709957 .8 1.2.840.114 350.1.13.10 4.2.7.3.698 084.8 [id number] [facility] 2023-09-08 18:00:00 2023-09-08 18:00:00 Outpatient R JENNA, CIARAN [facility] [id number] [facility] 2023-09-06 00:00:00 2023-09-06 18:29:42 Telephone Tae Baldwin 1.2.840.1 81933.1.1 3.104.2.7 .3.890127 .8 [id number] [facility] 2023-08-01 00:00:00 2023-09-06 18:22:56 Patient Secure Msg Yuniel Thurman 1.2.840.1 80894.1.1 3.104.2.7 .3.211762 .8 [id number] [facility] 2023-09-05 19:20:00 2023-09-05 19:31:50 Outpatient R MADELINE SIMONS [facility] [id number] [facility] 2023-09-05 19:20:00 2023-09-05 19:31:50 Urgent Care Unknown, Attending Madeline Simons 1.2.840.1 45445.1.1 3.104.2.7 .3.852574 .8 [id number] [facility] 2023-09-04 18:00:00 2023-09-04 18:00:00 Outpatient R UNKNOWN, ATTENDING [facility] [id number] [facility] 2023-09-04 00:00:00 2023-09-04 00:00:00 Travel 1.2.840.1 42873.1.1 3.104.2.7 .3.148460 .8 1.2.840.114 350.1.13.10 4.2.7.3.698 084.8 [id number] [facility] 2023-09-03 00:00:00 2023-09-03 13:59:38 Telephone [facility] 1.2.840.1 46670.1.1 3.104.2.7 .3.414079 .8 [id number] [facility] 2023-09-02 19:31:00 2023-09-02 20:45:00 Emergency X JOSE GLEASON [facility] ERT [id number] [facility] 2023-09-02 19:31:00 2023-09-02 20:45:00 Emergency Jose Gleason 1.2.840.1 17947.1.1 3.104.2.7 .3.913827 .8 [id number] [facility] 2023-09-02 00:00:00 2023-09-02 00:00:00 Travel 1.2.840.1 27295.1.1 3.104.2.7 .3.635829 .8 1.2.840.114 350.1.13.10 4.2.7.3.698 084.8 [id number] [facility] 2023-08-29 00:00:00 2023-08-29 15:49:37 Telephone Sade Mindeepa 1.2.840.1 85036.1.1 3.104.2.7 .3.295611 .8 [id number] [facility] 2023-08-25 19:45:19 2023-08-25 23:59:00 Hospital Encounter See Min 1.2.840.1 36643.1.1 3.104.2.7 .3.331370 .8 [id number] [facility] 2023-08-25 19:45:18 2023-08-25 23:59:00 Hospital Encounter See Min 1.2.840.1 12007.1.1 3.104.2.7 .3.352260 .8 [id number] [facility] 2023-08-25 18:20:00 2023-08-25 19:57:17 Outpatient R SEE MIN [facility] [id number] [facility] 2023-08-25 18:20:00 2023-08-25 19:57:17 Urgent Care Unknown, Attending PakoMakennatavares 1.2.840.1 99661.1.1 3.104.2.7 .3.881785 .8 [id number] [facility] 2023-08-25 00:00:00 2023-08-25 00:00:00 Travel 1.2.840.1 37736.1.1 3.104.2.7 .3.447012 .8 1.2.840.114 350.1.13.10 4.2.7.3.698 084.8 [id number] [facility] 2023-08-09 16:59:00 2023-08-09 20:10:00 Emergency E YUNIEL CALDERON MHSE MHSE [id number] [facility] 2023-08-05 18:46:00 2023-08-05 19:35:00 Emergency EM Parker Benitez HCACL PERS [id number] [facility] 2023-08-04 18:49:00 2023-08-04 22:15:00 Emergency EM EDDOC, GENERIC HCACL AERS [id number] [facility] 2023-07-31 00:00:00 2023-08-01 16:16:48 Telephone Yuniel Thurman 1.840.1 73903.1.1 3.104.2.7 .3.855288 .8 [id number] [facility] 2023-06-19 00:00:00 2023-07-26 18:13:47 Patient Secure Msg Doctor Unassigned, Humbird 1.840.1 81742.1.1 3.104.2.7 .3.348387 .8 [id number] [facility] 2023-07-14 15:00:00 2023-07-14 15:00:00 Outpatient R CARLOS GOMES [facility] [id number] [facility] 2023-06-11 00:00:00 2023-07-10 13:55:42 Patient Secure Msg Carlos Gomes 1.840.1 31075.1.1 3.104.2.7 .3.133378 .8 [id number] [facility] 2023-07-08 13:30:00 2023-07-08 13:30:00 Outpatient MIKAYLA MARIA [facility] [id number] [facility] 2023-07-07 00:00:00 2023-07-07 13:05:16 Telephone Mikayla Florez 1.840.1 65619.1.1 3.104.2.7 .3.928665 .8 [id number] [facility] 2023-06-13 00:00:00 2023-06-29 11:19:28 Telephone Carlos Gomes 1.840.1 99107.1.1 3.104.2.7 .3.933080 .8 [id number] [facility] 2023-06-25 00:00:00 2023-06-26 11:10:24 Telephone Erwin Florezrochelle 1.2.840.1 76462.1.1 3.104.2.7 .3.919693 .8 [id number] [facility] 2023-06-21 15:01:36 2023-06-21 23:59:00 Outpatient R GAUTAMMIKAYLA [facility] [id number] [facility] 2023-06-21 15:01:36 2023-06-21 23:59:00 Hospital Encounter Erwin Florezrochelle 1.2.840.1 00411.1.1 3.104.2.7 .3.397348 .8 [id number] [facility] 2023-06-20 00:00:00 2023-06-20 15:48:13 Telephone Gautam Mikayla 1.2.840.1 53314.1.1 3.104.2.7 .3.849578 .8 [id number] [facility] 2023-06-19 23:59:59 2023-06-19 23:59:59 Anesthesia Event Caitlin Cuevas 1.2.840.1 01024.1.1 3.104.2.7 .3.590224 .8 [id number] [facility] 2023-06-19 00:00:00 2023-06-19 16:46:54 Telephone Erwin Florezrochelle 1.2.840.1 07906.1.1 3.104.2.7 .3.155607 .8 [id number] [facility] 2023-06-19 14:15:00 2023-06-19 15:38:41 Office Visit Yuniel Thurman 1.2.840.1 56604.1.1 3.104.2.7 .3.083391 .8 [id number] [facility] 2023-06-19 14:15:00 2023-06-19 14:15:00 Outpatient YUNIEL BANEGAS [facility] [id number] [facility] 2023-06-19 00:00:00 2023-06-19 00:00:00 Outpatient Maria Fernanda MRATINEZ VFP VFP [id number] [facility] 2023-06-19 00:00:00 2023-06-19 00:00:00 Travel 1.2.840.1 63508.1.1 3.104.2.7 .3.497780 .8 1.2.840.114 350.1.13.10 4.2.7.3.698 084.8 [id number] [facility] 2023-06-18 16:15:00 2023-06-18 16:45:00 Office Visit Mikayla Florez 1.2.840.1 46241.1.1 3.104.2.7 .3.266784 .8 [id number] [facility] 2023-06-18 16:15:00 2023-06-18 16:15:00 Outpatient MIKAYLA MARIA [facility] [id number] [facility] 2023-06-18 15:30:00 2023-06-18 15:30:00 Outpatient NEO VILLANUEVA [facility] [id number] [facility] 2023-06-18 00:00:00 2023-06-18 00:00:00 Travel 1.2.840.1 15511.1.1 3.104.2.7 .3.606438 .8 1.2.840.114 350.1.13.10 4.2.7.3.698 084.8 [id number] [facility] 2023-06-17 00:00:00 2023-06-17 15:26:53 Telephone Carlos Gomes 1.2.840.1 79685.1.1 3.104.2.7 .3.122739 .8 [id number] [facility] 2023-06-13 00:00:00 2023-06-13 18:14:25 Nurse Triage Pia Pitt 1.2.840.1 08238.1.1 3.104.2.7 .3.361802 .8 [id number] [facility] 2023-06-12 13:09:00 2023-06-12 19:49:00 Outpatient R CARLOS GOMES [facility] SUU [id number] [facility] 2023-06-12 13:09:00 2023-06-12 19:49:00 Hospital Encounter Carlos Gomes 1.2.840.1 40575.1.1 3.104.2.7 .3.503619 .8 [id number] [facility] 2023-06-12 00:00:00 2023-06-12 18:49:16 Telephone Carlos Gomes 1.2.840.1 21600.1.1 3.104.2.7 .3.854178 .8 [id number] [facility] 2023-06-12 16:50:00 2023-06-12 18:10:00 Anesthesia Event Jenaro Padilla Demetria 1.2.840.1 05749.1.1 3.104.2.7 .3.070933 .8 [id number] [facility] 2023-06-12 13:53:00 2023-06-12 15:36:00 Surgery Carlos Gomes 1.2.840.1 49722.1.1 3.104.2.7 .3.150545 .8 [id number] [facility] 2023-06-09 00:00:00 2023-06-09 00:00:00 Telephone Carlos Gomes [facility] 1.2.840.114 350.1.13.10 4.2.7.2.686 [id number] [facility] 2023-06-05 00:00:00 2023-06-05 00:00:00 Patient Secure Msg Doctor Unassigned, Humbird [facility] 1.2840.114 350.1.13.10 4.2.7.2.686 [id number] [facility] 2023-06-04 17:18:00 2023-06-04 22:33:00 Emergency X LUIS COLON [facility] ERT [id number] [facility] 2023-06-04 17:18:00 2023-06-04 22:33:00 Emergency Jase Flores [facility] ([facility]) 1.0.114 350.1.13.10 4.2.7.2.686 [id number] [facility] 2023-06-04 00:00:00 2023-06-04 00:00:00 Telephone Carlos Gomes [facility] 1.0.114 350.1.13.10 4.2.7.2.686 [id number] [facility] 2023-06-04 00:00:00 2023-06-04 00:00:00 Transition of Care Neo Farrell 1.0.114 350.1.13.10 4.2.7.2.686 [id number] [facility] 2023-06-01 11:14:00 2023-06-03 16:45:00 Inpatient X JOSE SANCHEZ [facility] REA [id number] [facility] 2023-06-01 11:14:00 2023-06-03 16:45:00 Hospital Encounter Rc Peng Behnam Laird [facility] ([facility]) 1.0.114 350.1.13.10 4.2.7.2.686 [id number] [facility] 2023-06-02 11:45:00 2023-06-02 13:50:00 Surgery Rafael [facility] 1.2.840.114 350.1.13.10 4.2.7.2.686 [id number] [facility] 2023-06-02 00:00:00 2023-06-02 00:00:00 [facility] 1.2.840.114 350.1.13.10 4.2.7.2.686 [id number] [facility] 2023-05-30 02:52:00 2023-05-30 05:02:00 Emergency EM Edwin Mathews [facility] AERS [id number] [facility] 2023-05-22 00:00:00 2023-05-22 00:00:00 Outpatient Yerramadha_ M_VICKIEU_MD VFP VFP [id number] [facility] 2023-05-16 00:00:00 2023-05-16 00:00:00 Outpatient Simpson_C_H OU_MD VFP VFP [id number] [facility] 2023-05-08 00:00:00 2023-05-08 00:00:00 Outpatient Simpson_C_H OU_MD VFP VFP [id number] [facility] 2023-05-02 00:00:00 2023-05-02 00:00:00 Outpatient Simpson_C_H OU_MD VFP VFP [id number] [facility] 2023-05-02 00:00:00 2023-05-02 00:00:00 Nataliya Newby MD: [address] [facility] [address], [place] [address] , Ph. VFP [facility] [place] - TRISTAN_MOIRA_Leyla Acosta [id number] [facility] 2023-04-11 00:00:00 2023-04-11 00:00:00 Outpatient Simpson_C_H OU_MD VFP VFP [id number] [facility] 2023-04-01 00:00:00 2023-04-01 00:00:00 Outpatient Simpson_C_H OU_MD VFP VFP [id number] [facility] 2023-03-20 07:34:00 2023-03-20 07:34:00 Outpatient Jovana Parnell [facility] [id number] [facility] 2023-03-06 00:00:00 2023-03-06 00:00:00 Outpatient Simpson_C_H OU_MD VFP VFP [id number] [facility] 2023-03-02 00:00:00 2023-03-02 00:00:00 Outpatient Simpson_C_H OU_MD VFP VFP [id number] [facility] 2023-01-29 00:00:00 2023-01-29 00:00:00 Outpatient Simpson_C_H OU_MD VFP VFP [id number] [facility] 2023-01-29 00:00:00 2023-01-29 00:00:00 Outpatient Simpson_C_H OU_MD VFP VFP [id number] [facility] 2023-01-23 00:00:00 2023-01-23 00:00:00 Outpatient Simpson_C_H OU_MD VFP VFP [id number] [facility] 2023-01-23 00:00:00 2023-01-23 00:00:00 Jovana Weber MD: [address] [place] [address], [address], [place] [address] , Ph. VFP [place] - [facility] - [place] - VM_MOIRA_Jesse Yousif (VALDEMAR) [id number] [facility] 2023-01-20 00:00:00 2023-01-20 00:00:00 Outpatient Simpson_C_H OU_MD VFP VFP [id number] [facility] 2022-12-25 00:00:00 2022-12-25 00:00:00 Outpatient Simpson_C_H OU_MD VFP VFP [id number] [facility] 2022-12-25 00:00:00 2022-12-25 00:00:00 Outpatient Simpson_C_H OU_MD VFP VFP [id number] [facility] 2022-11-25 00:00:00 2022-11-25 00:00:00 Outpatient Simpson_C_H OU_MD VFP VFP [id number] [facility] 2022-11-08 00:00:00 2022-11-08 00:00:00 Outpatient Simpson_C_H OU_MD VFP VFP [id number] [facility] 2022-11-08 00:00:00 2022-11-08 00:00:00 Outpatient Simpson_C_H OU_MD VFP VFP [id number] [facility] 2022-10-04 00:00:00 2022-10-04 00:00:00 Outpatient Simpson_C_H OU_MD VFP VFP [id number] [facility] 2022-10-04 00:00:00 2022-10-04 00:00:00 Outpatient Simpson_C_H OU_MD VFP VFP [id number] [facility] 2022-10-04 00:00:00 2022-10-04 00:00:00 Outpatient Simpson_C_H OU_MD VFP VFP [id number] [facility] 2022-10-04 00:00:00 2022-10-04 00:00:00 Outpatient Simpson_C_H OU_MD VFP VFP [id number] [facility] 2022-10-04 00:00:00 2022-10-04 00:00:00 Outpatient Simpson_C_H OU_MD VFP VFP [id number] [facility] 2022-10-04 00:00:00 2022-10-04 00:00:00 Outpatient Simpson_C_H OU_MD VFP VFP [id number] [facility] 2022-10-04 00:00:00 2022-10-04 00:00:00 Outpatient Simpson_C_H OU_MD VFP VFP [id number] [facility] 2022-10-04 00:00:00 2022-10-04 00:00:00 Outpatient Simpson_C_H OU_MD VFP VFP [id number] [facility] 2022-08-30 00:00:00 2022-08-30 00:00:00 Outpatient Simpson_C VFP VFP [id number] [facility] 2022-08-30 00:00:00 2022-08-30 00:00:00 Outpatient Simpson_C_H OU_MD VFP VFP [id number] [facility] 2022-08-29 00:00:00 2022-08-29 00:00:00 Outpatient Simpson_C VFP VFP [id number] [facility] 2022-08-23 00:00:00 2022-08-23 00:00:00 Outpatient Simpson_C VFP VFP [id number] [facility] 2022-08-07 00:00:00 2022-08-07 00:00:00 Outpatient Simpson_C VFP VFP [id number] [facility] 2022-08-06 00:00:00 2022-08-06 00:00:00 Outpatient Simpson_C VFP VFP [id number] [facility] 2022-07-29 00:00:00 2022-07-29 00:00:00 Outpatient Simpson_C VFP VFP [id number] [facility] 2022-07-29 00:00:00 2022-07-29 00:00:00 Outpatient Simpson_C VFP VFP [id number] [facility] 2022-07-12 00:00:00 2022-07-12 00:00:00 Outpatient Simpson_C VFP VFP [id number] [facility] 2022-06-11 00:00:00 2022-06-11 00:00:00 Outpatient Simpson_C VFP VFP [id number] [facility] 2022-06-10 00:00:00 2022-06-10 00:00:00 Outpatient Simpson_C VFP VFP [id number] [facility] 2022-06-07 00:00:00 2022-06-07 00:00:00 Outpatient Simpson_C VFP VFP [id number] [facility] 2022-05-30 00:00:00 2022-05-30 00:00:00 Outpatient Simpson_C VFP VFP [id number] [facility] 2022-05-30 00:00:00 2022-05-30 00:00:00 Jenaro Ying, MEDIA MANAGER: [address], [address], [place] [address] , Ph. VFP [place] - [facility] - [place] - VM_HOU_N. Benja ([place]) [id number] [facility] 2022-05-14 00:00:00 2022-05-14 00:00:00 Outpatient Simpson_C VFP VFP [id number] [facility] 2022-05-14 00:00:00 2022-05-14 00:00:00 Outpatient Simpson_C VFP VFP [id number] [facility] 2022-05-03 00:00:00 2022-05-03 00:00:00 Outpatient Simpson_C VFP VFP [id number] [facility] 2022-04-25 00:00:00 2022-04-25 00:00:00 Outpatient Simpson_C VFP VFP [id number] [facility] 2022-04-25 00:00:00 2022-04-25 00:00:00 Jenaro Ying, MEDIA MANAGER: [address], [address], [place] [address] , Ph. VFP [place] - [facility] - [place] - VM_ASIF Yousif ([facility]) [id number] [facility] 2022-04-23 00:00:00 2022-04-23 00:00:00 Outpatient Simpson_C VFP VFP [id number] [facility] 2022-04-22 00:00:00 2022-04-22 00:00:00 Outpatient Simpson_C VFP VFP [id number] [facility] 2022-04-04 00:00:00 2022-04-04 00:00:00 Outpatient Simpson_C VFP VFP [id number] [facility] 2022-04-04 00:00:00 2022-04-04 00:00:00 Jenaro Ying, MEDIA MANAGER: [address], [address], [place] [address] , Ph. VFP [place] - [facility] - [place] - TRISTAN_ASIF Yousif ([facility]) [id number] [facility] 2022-03-30 00:00:00 2022-03-30 00:00:00 Outpatient Simpson_C VFP VFP [id number] [facility] 2022-03-28 00:00:00 2022-03-28 00:00:00 Outpatient Simpson_C VFP VFP [id number] [facility] 2022-03-28 00:00:00 2022-03-28 00:00:00 Jenaro Ying, MEDIA MANAGER: [address], [address], [place] [address] , Ph. VFP [place] [facility] - [place] - VM_ASIF Yousif ([facility]) [id number] [facility] 2021-11-28 00:00:00 2021-11-28 00:00:00 Outpatient Simpson_C VFP VFP [id number] [facility] 2021-11-16 00:00:00 2021-11-16 00:00:00 Outpatient Simpson_C VFP VFP [id number] [facility] 2021-10-26 00:00:00 2021-10-26 00:00:00 Orders Only Doctor Unassigned, [facility] [id number] [facility] 2021-10-24 00:00:00 2021-10-24 00:00:00 Outpatient Simpson_C VFP VFP [id number] [facility] 2021-10-20 00:00:00 2021-10-20 00:00:00 Outpatient Simpson[facility]C VFP VFP [id number] [facility] 2021-10-18 00:00:00 2021-10-18 00:00:00 Outpatient Simpson[facility]C VFP VFP [id number] [facility] 2021-10-12 00:00:00 2021-10-12 00:00:00 Outpatient Simpson[facility]C VFP VFP [id number] [facility] 2021-10-11 00:00:00 2021-10-11 00:00:00 Outpatient Simpson[facility]C VFP VFP [id number] [facility] 2021-10-11 00:00:00 2021-10-11 00:00:00 Mary Osullivan, MEDIA MANAGER: [address] [facility] [place] [address] , Ph. VFP [place] - [facility] Medical - TRISTAN_MOIRA_Mihir orozco (VALDEMAR) [id number] [facility] 2021-09-30 00:00:00 2021-09-30 00:00:00 Outpatient Simpson_C VFP VFP [id number] [facility] 2021-09-26 22:51:00 2021-09-27 09:50:00 Emergency AISHA COHEN [facility] ERT [id number] [facility] 2021-09-26 22:51:00 2021-09-27 09:50:00 Emergency Jayden Knight [place] [facility] ([facility]) 1.2.840.114 350.1.13.10 4.2.7.2.686 [id number] [facility] 2021-09-09 12:44:00 2021-09-09 12:44:00 Outpatient Simpson_C VFP VFP [id number] [facility] 2021-08-17 02:28:00 2021-08-17 02:28:00 Outpatient Simpson_C VFP VFP [id number] [facility] 2021-08-15 10:00:00 2021-08-15 10:00:00 Outpatient FRANCISCO WANG [facility] [id number] [facility] 2021-08-07 00:00:00 2021-08-07 00:00:00 Telephone Bob Min [facility] 1.2.840.114 350.1.13.10 4.2.7.2.686 [id number] [facility] 2021-07-21 02:06:00 2021-07-21 02:06:00 Outpatient Simpson_C VFP VFP [id number] [facility] 2021-06-17 05:29:00 2021-06-17 05:29:00 Outpatient Simpson_C VFP VFP [id number] [facility] 2021-06-17 05:29:00 2021-06-17 05:29:00 Outpatient Simpson_C VFP VFP [id number] [facility] 2021-06-16 02:26:00 2021-06-16 02:26:00 Outpatient Simpson_C VFP VFP [id number] [facility] 2021-06-14 05:22:00 2021-06-14 05:22:00 Outpatient Simpson_C VFP VFP [id number] [facility] 2021-06-13 09:29:00 2021-06-13 09:29:00 Outpatient Simpson_C VFP VFP [id number] [facility] 2021-06-13 03:42:00 2021-06-13 03:42:00 Outpatient VFP VFP [id number] [facility] 2021-06-13 00:00:00 2021-06-13 00:00:00 Davy Manley MD: 1832 [address] [facility] A, [place] [address] , Ph. VFP [place] - [facility] Medical - VM_Haley orozco (WAG) [id number] [facility] 2021-06-10 03:08:00 2021-06-10 03:08:00 Outpatient Simpson_C VFP VFP [id number] [facility] 2021-06-10 03:08:00 2021-06-10 03:08:00 Outpatient Simpson_C VFP VFP [id number] [facility] 2021-06-08 07:13:00 2021-06-08 07:13:00 Outpatient Simpson_C VFP VFP [id number] [facility] 2021-06-06 05:32:00 2021-06-06 05:32:00 Outpatient Simpson_C VFP VFP [id number] [facility] 2021-05-12 03:08:00 2021-05-12 03:08:00 Outpatient Simpson_C VFP VFP [id number] [facility] 2021-05-01 10:30:00 2021-05-01 10:30:00 Outpatient JOSE VILLAVICENCIO [facility] [id number] [facility] 2021-04-23 08:40:00 2021-04-23 08:40:00 Outpatient BOB ZHENG [facility] [id number] [facility] 2021-04-01 04:08:00 2021-04-01 04:08:00 Outpatient Simpson_C VFP VFP [id number] [facility] 2021-04-01 04:08:00 2021-04-01 04:08:00 Outpatient Simpson_C VFP VFP [id number] [facility] 2021-03-29 10:38:00 2021-03-29 10:38:00 Outpatient Simpson_C VFP VFP [id number] [facility] 2021-03-26 03:43:00 2021-03-26 03:43:00 Outpatient Simpson_C VFP VFP [id number] [facility] 2021-03-22 11:26:00 2021-03-22 11:26:00 Outpatient Simpson_C VFP VFP [id number] [facility] 2021-03-22 00:00:00 2021-03-22 00:00:00 Davy Manley MD: [address] [place] [address] , Ph. VFP [place] - [facility] Medical - TRISTAN_Haley orozco (VALDEMAR) [id number] [facility] 2021-03-20 08:21:00 2021-03-20 08:21:00 Outpatient Simpson_C VFP VFP [id number] [facility] 2021-03-19 01:56:00 2021-03-19 01:56:00 Outpatient VFP VFP [id number] [facility] 2021-02-20 09:00:00 2021-02-20 09:00:00 Outpatient JOSE VILLAVICENCIO [facility] [id number] [facility] 2021-01-29 09:20:00 2021-01-29 09:20:00 Outpatient BOB ZHENG [facility] [id number] [facility] 2021-01-29 00:00:00 2021-01-29 00:00:00 Telephone Bob Min [facility] 1.2.840.114 350.1.13.10 4.2.7.2.686 [id number] [facility] 2021-01-29 00:00:00 2021-01-29 00:00:00 Patient Secure Msg Doctor Unassigned, Humbird [facility] [place] 1..114 350.1.13.10 4.2.7.2.686 [id number] [facility] 2021-01-26 13:15:00 2021-01-26 13:15:00 Outpatient R UNKNOWN, ATTENDING [facility] [id number] [facility] 2021-01-26 13:15:00 2021-01-26 13:15:00 Outpatient R UNKNOWN, ATTENDING [facility] [id number] [facility] 2021-01-16 10:12:18 2021-01-16 10:53:24 Office Visit Francisco Gaming [facility] 1..114 350.1.13.10 4.2.7.2.686 [id number] [facility] 2021-01-16 10:00:00 2021-01-16 10:53:24 Outpatient FRANCISCO WANG [facility] [id number] [facility] 2021-01-16 10:00:00 2021-01-16 10:00:00 Outpatient FRANCISCO WANG [facility] [id number] [facility] 2021-01-16 00:00:00 2021-01-16 00:00:00 Patient Outreach Zahraa Soliz [facility] MULT[facility]PEC [facility] 1.114 350.1.13.10 4.2.7.2.686 [id number] [facility] 2021-01-16 00:00:00 2021-01-16 00:00:00 Patient Outreach Zahraa Soliz [facility] M[facility] 1..114 350.1.13.10 4.2.7.2.686 [id number] [facility] 2020-12-29 09:26:19 2020-12-29 10:17:16 Office Visit Min Bob [facility]PEC [facility] 1.2.840.114 350.1.13.10 4.2.7.2.686 [id number] [facility] 2020-12-29 09:20:00 2020-12-29 09:20:00 Outpatient R BOB MIN [facility] [id number] [facility] 2020-12-26 00:00:00 2020-12-26 00:00:00 Telephone MinMolly betancourtny [facility] MULTISPEC [facility]TY [facility]ENTER [facility] 1.2.840.114 350.1.13.10 4.2.7.2.686 [id number] [facility] 2020-12-21 16:14:57 2020-12-21 16:29:57 Road Repairer Visit Vtc-Lab Bob Min [facility] MULTISPEC [facility]TY [facility]ENTER [facility] 1.2.840.114 350.1.13.10 4.2.7.2.686 [id number] [facility] 2020-12-21 08:36:11 2020-12-21 09:33:21 Office Visit MinBob betancourt [facility] MULTISPEC [facility] 1.2.840.114 350.1.13.10 4.2.7.2.686 [id number] [facility] 2020-12-21 08:40:00 2020-12-21 08:40:00 Outpatient R BOB MIN [facility] [id number] [facility] 2020-12-20 10:30:00 2020-12-20 10:30:00 Outpatient R [facility] [id number] [facility] 2020-12-20 00:00:00 2020-12-20 00:00:00 Telephone Pako [facility] MULTISPEC [facility] 1.840.114 350.1.13.10 4.2.7.2.686 [id number] [facility] 2020-12-18 00:00:00 2020-12-18 00:00:00 Telephone Bob Min [facility] MULTISPEC [facility]TY CENTER [facility] 1.840.114 350.1.13.10 4.2.7.2.686 [id number] [facility] 2020-12-14 00:00:00 2020-12-14 00:00:00 Patient Secure Abdelrahman Dempsey [facility] 1.840.114 350.1.13.10 4.2.7.2.686 [id number] [facility] 2020-12-13 08:47:34 2020-12-13 09:02:34 Road Repairer [facility] 1..114 350.1.13.10 4.2.7.2.686 [id number] [facility] 2020-12-13 08:45:00 2020-12-13 08:45:00 Outpatient R SAMUEL GUZMÁN [facility] [id number] [facility] 2020-12-11 00:00:00 2020-12-11 00:00:00 Refill Pako Bob [facility] MULTISPEC [facility]TY CENTER [facility] 1.840.114 350.1.13.10 4.2.7.2.686 [id number] [facility] 2020-12-08 08:25:50 2020-12-08 08:40:50 Office Visit Yuniel Thurman [facility] 1.0.114 350.1.13.10 4.2.7.2.686 [id number] [facility] 2020-12-08 08:15:00 2020-12-08 08:15:00 Outpatient YUNIEL BANEGAS [facility] [id number] [facility] 2020-12-06 09:45:00 2020-12-06 10:45:00 Surgery Abdelrahman Madden [facility] 1.0.114 350.1.13.10 4.2.7.2.686 [id number] [facility] 2020-12-06 09:15:00 2020-12-06 09:15:00 Outpatient YUNIEL BANEGAS [facility] [id number] [facility] 2020-12-06 00:00:00 2020-12-06 00:00:00 Telephone Bob Min [facility] ..114 350.1.13.10 4.2.7.2.686 [id number] [facility] 2020-12-06 00:00:00 2020-12-06 00:00:00 Orders Only Doctor Unassigned, Humbird [facility] 1.840.114 350.1.13.10 4.2.7.2.686 [id number] [facility] 2020-12-04 15:20:00 2020-12-04 23:59:00 Hospital Encounter Bob Min [facility] .0.114 350.1.13.10 4.2.7.2.686 [id number] [facility] 2020-12-04 16:01:08 2020-12-04 16:16:08 Laboratory Only Only, Lcc Test Unknown, Attending [facility] 1.0.114 350.1.13.10 4.2.7.2.686 [id number] [facility] 2020-12-04 14:45:00 2020-12-04 15:19:00 Hospital Encounter Pako Bob [facility] 1.2840.114 350.1.13.10 4.2.7.2.686 [id number] [facility] 2020-12-04 00:00:00 2020-12-04 00:00:00 Outpatient R MOLLY MINNY [facility] [id number] [facility] 2020-12-01 11:13:31 2020-12-01 12:40:21 Office Visit Nazanin [facility] M[facility] 1.20.114 350.1.13.10 4.2.7.2.686 [id number] [facility] 2020-12-01 11:13:31 2020-12-01 12:40:21 Office Visit Nazanin [facility] M[facility] 1..114 350.1.13.10 4.2.7.2.686 [id number] [facility] 2020-12-01 11:15:00 2020-12-01 11:15:00 Outpatient R NAZANIN [facility] [id number] [facility] 2020-12-01 08:34:32 2020-12-01 09:04:32 Office Visit Francisco Gaming [facility] MULTISPEC [facility]TY [facility] 1.2.114 350.1.13.10 4.2.7.2.686 [id number] [facility] 2020-12-01 08:34:32 2020-12-01 09:04:32 Office Visit Francisco Gaming [facility] MULTISPEC [facility] 1.2.114 350.1.13.10 4.2.7.2.686 [id number] [facility] 2020-12-01 08:30:00 2020-12-01 08:30:00 Outpatient Jhonathan FIELDSAMBERLYFRANCISCO WALTON [facility] [id number] [facility] 2020-12-01 00:00:00 2020-12-01 00:00:00 Orders Only Doctor Unassigned, Humbird [facility] 1.0.114 350.1.13.10 4.2.7.2.686 [id number] [facility] 2020-11-29 09:06:46 2020-11-29 09:50:07 Office Visit Bob Min [facility] MULTISPEC [facility] 1.114 350.1.13.10 4.2.7.2.686 [id number] [facility] 2020-11-29 09:06:46 2020-11-29 09:50:07 Office Visit Bob Min [facility] MULTISPEC [facility] 1..114 350.1.13.10 4.2.7.2.686 [id number] [facility] 2020-11-29 09:00:00 2020-11-29 09:00:00 Outpatient BOB ZHENG [facility] [id number] [facility] 2020-11-29 00:00:00 2020-11-29 00:00:00 Telephone Pako Bob [facility] MULTISPEC [facility] 1.114 350.1.13.10 4.2.7.2.686 [id number] [facility] 2020-11-28 00:00:00 2020-11-28 00:00:00 Telephone Bob Min [facility] MULT[facility]PEC [facility] 1.2.840.114 350.1.13.10 4.2.7.2.686 [id number] [facility] 2020-11-28 00:00:00 2020-11-28 00:00:00 Telephone Min Bob [facility] MULTISPEC [facility] 1.2.840.114 350.1.13.10 4.2.7.2.686 [id number] [facility] 2020-11-28 00:00:00 2020-11-28 00:00:00 Telephone Min [facility] MULTISPEC [facility] 1.2.840.114 350.1.13.10 4.2.7.2.686 [id number] [facility] 2020-11-28 00:00:00 2020-11-28 00:00:00 [facility] 1.2.840.114 350.1.13.10 4.2.7.2.686 [id number] [facility] 2020-11-27 13:12:13 2020-11-27 14:16:37 Office Visit Yuniel Thurman [facility] 1.2.840.114 350.1.13.10 4.2.7.2.686 [id number] [facility] 2020-11-27 13:12:13 2020-11-27 14:16:37 Office Visit Yuniel Thurman [facility] 1.2.840.114 350.1.13.10 4.2.7.2.686 [id number] [facility] 2020-11-27 13:00:00 2020-11-27 13:00:00 Outpatient R YUNIEL THURMAN [facility] [id number] [facility] 2020-11-24 00:00:00 2020-11-24 00:00:00 Telephone Bob Min [facility] MULTISPEC [facility] 1.2.840.114 350.1.13.10 4.2.7.2.686 [id number] [facility] 2020-11-24 00:00:00 2020-11-24 00:00:00 Telephone Pako [facility] MULTISPEC [facility] 1.2.840.114 350.1.13.10 4.2.7.2.686 [id number] [facility] 2020-11-23 00:00:00 2020-11-23 00:00:00 Telephone Pako [facility] M[facility]PEC [facility] 1.2.840.114 350.1.13.10 4.2.7.2.686 [id number] [id number] [facility] 2020-11-23 00:00:00 2020-11-23 00:00:00 Telephone Pako [facility] M[facility]PEC [facility] 1.2.840.114 350.1.13.10 4.2.7.2.686 [id number] [id number] [facility] 2020-11-22 11:21:37 2020-11-22 11:36:37 Road Repairer Visit Vtc-Lab Pako [facility] M[facility]PEC [facility] 1.2.840.114 350.1.13.10 4.2.7.2.686 [id number] [facility] 2020-11-22 11:21:37 2020-11-22 11:36:37 Road Repairer Visit Vt-Lab Min [facility] M[facility]PEC [facility] 1.2.840.114 350.1.13.10 4.2.7.2.686 [id number] [facility] 2020-11-22 10:27:09 2020-11-22 10:47:09 Office Visit Bob Min [facility] MULTISPEC [facility]TY [facility] 1.2.840.114 350.1.13.10 4.2.7.2.686 [id number] [facility] 2020-11-22 10:27:09 2020-11-22 10:47:09 [facility] 1.2.840.114 350.1.13.10 4.2.7.2.686 [id number] [facility] 2020-11-22 10:40:00 2020-11-22 10:40:[address] [facility] [id number] [facility] 2020-11-22 00:00:00 2020-11-22 00:00:00 Orders Only Doctor Unassigned, Humbird [facility] 1.2.840.114 350.1.13.10 4.2.7.2.686 [id number] [facility] 2020-11-22 00:00:00 2020-11-22 00:00:00 Orders Only Doctor Unassigned, Humbird [facility] 1.2.840.114 350.1.13.10 4.2.7.2.686 [id number] [facility] 2020-11-17 12:22:00 2020-11-17 17:28:00 Emergency [facility] ([facility]) 1.2.840.114 350.1.13.10 4.2.7.2.686 [id number] [facility] 2020-11-17 12:22:00 2020-11-17 17:28:00 Emergency [facility] ([facility]) 1.2.840.114 350.1.13.10 4.2.7.2.686 [id number] [facility] 2020-11-16 21:09:00 2020-11-17 00:08:00 Emergency Giovanni Levine [facility] ([facility]) 1.2.840.114 350.1.13.10 4.2.7.2.686 [id number] [facility] 2020-11-16 21:09:00 2020-11-17 00:08:00 Emergency [facility] ([facility]) 1.2.840.114 350.1.13.10 4.2.7.2.686 [id number] [facility] 2020-11-17 00:00:00 2020-11-17 00:00:00 Nurse Triage [facility] 1.2.840.114 350.1.13.10 4.2.7.2.686 [id number] [facility] 2020-11-17 00:00:00 2020-11-17 00:00:00 Nurse Triage [facility] 1.2.840.114 350.1.13.10 4.2.7.2.686 [id number] [facility] 2020-03-13 09:45:00 2020-03-13 09:45:00 Outpatient GINI REDDING [facility] [id number] [facility] Results Test Description Test Time Test Comments Results Result Co mments Source Jones Cantu AustinCULTURE, URINE, [id number] 00:00:00* Test Item Value Reference Range Interpretation Comme nts CULTURE, URINE, ROUTINE (jocelyne t code = 630-4) SEE NOTE Jones [id number] 00:00:00* Test Item Value Reference Range Interpretation Comme nts CHLAMYDIA TRACHOMATIS (test code = 63674-2) Negative ESCHERICHIA COLI (test code = 36124-4) Negative HAEMOPHILUS DUCREYI (test co de = 84269-1) Negative MEGASPHAERA TYPE 1 (test cod e = 38537-4) Negative MEGASPHAERA TYPE 2 (test cod e = 49925-9D) Negative NEISSERIA GONORRHOEAE (test code = 18899-9) Negative PREVOTELLA BIVIA (test code = No code9) Negative TREPONEMA PALLIDUM (test cod e = 44376-2) Negative ATOPOBIUM VAGINAE (test code = 68897-6) Negative ENTEROCOCCUS FAECALIS (test code = 18425-4) Positive GARDNERELLA VAGINALIS (test code = 82303-9) Positive LACTOBACILLUS CRISPATUS (jocelyne t code = 38763-2H) Positive LACTOBACILLUS GASSERI (test code = 11288-2) Negative LACTOBACILLUS INERS (test co de = 76101-2V) Negative LACTOBACILLUS JENSENII (test code = 02173-1P) Negative MOBILUNCUS CURTISII (test co de = 58458-6M) Negative MOBILUNCUS MULIERIS (test co de = 53835-8) Negative STAPHYLOCOCCUS AUREUS (test code = 34016-4) Negative STREPTOCOCCUS AGALACTIAE (te st code = 95350-3) Positive MYCOPLASMA GENITALIUM (test code = 39463-1) Negative MYCOPLASMA HOMINIS (test cod e = 67815-3Y) Negative UREAPLASMA UREALYTICUM (test code = 55164-3L) Negative TRICHOMONAS VAGINALIS (test code = 70947MS) Negative LISA ALBICANS (test code = 03721-6) Negative LISA AURIS (test code = 04775-7) Negative LISA GLABRATA (test code = 39192-0) Negative LISA KRUSEI (test code = 53542-2) Negative LISA LUSITANIAE (test cod e = 82887-3) Negative LISA PARAPSILOSIS (test c ode = 37942-3) Negative LISA TROPICALIS (test cod e = 51117-7) Negative VANCOMYCIN RESISTANCE MARKER (VANB) (test code = IHABX) Negative VANCOMYCIN RESISTANCE MARKER (VANA1/VANA2) (test code = 42244-0J) Negative BACTEROIDES FRAGILIS (test c ode = 201804-4) Positive BVAB-2 (test code = 75334-2) Negative HSV-1 (HERPES SIMPLEX) (test code = 49449-2) Negative HSV-2 (HERPES SIMPLEX) (test code = P0120) Negative Jones [id number] 00:00:00* Test Item Value Reference Range Interpretation Comme nts CHLAMYDIA TRACHOMATIS (test code = 17379-3) Negative ESCHERICHIA COLI (test code = 79987-2) Negative HAEMOPHILUS DUCREYI (test co de = 70938-2) Negative MEGASPHAERA TYPE 1 (test cod e = 98459-0) Negative MEGASPHAERA TYPE 2 (test cod e = 50564-2X) Negative NEISSERIA GONORRHOEAE (test code = 03011-7) Negative PREVOTELLA BIVIA (test code = No code9) Negative TREPONEMA PALLIDUM (test cod e = 41012-3) Negative ATOPOBIUM VAGINAE (test code = 98593-6) Negative ENTEROCOCCUS FAECALIS (test code = 08950-0) Positive GARDNERELLA VAGINALIS (test code = 35434-5) Positive LACTOBACILLUS CRISPATUS (jocelyne t code = 39510-6K) Positive LACTOBACILLUS GASSERI (test code = 42654-2) Negative LACTOBACILLUS INERS (test co de = 76450-4R) Negative LACTOBACILLUS JENSENII (test code = 67737-9V) Negative MOBILUNCUS CURTISII (test co de = 64080-2P) Negative MOBILUNCUS MULIERIS (test co de = 03965-9) Negative STAPHYLOCOCCUS AUREUS (test code = 55084-9) Negative STREPTOCOCCUS AGALACTIAE (te st code = 21298-4) Positive MYCOPLASMA GENITALIUM (test code = 22529-8) Negative MYCOPLASMA HOMINIS (test cod e = 31138-7M) Negative UREAPLASMA UREALYTICUM (test code = 50000-1V) Negative TRICHOMONAS VAGINALIS (test code = 73997GM) Negative LISA ALBICANS (test code = 87093-8) Negative LISA AURIS (test code = 17995-5) Negative LISA GLABRATA (test code = 59952-6) Negative LISA KRUSEI (test code = 72982-0) Negative LISA LUSITANIAE (test cod e = 15059-7) Negative LISA PARAPSILOSIS (test c ode = 68944-8) Negative LISA TROPICALIS (test cod e = 31185-3) Negative VANCOMYCIN RESISTANCE MARKER (VANB) (test code = IHABX) Negative VANCOMYCIN RESISTANCE MARKER (VANA1/VANA2) (test code = 28770-2T) Negative BACTEROIDES FRAGILIS (test c ode = 147700-6) Positive BVAB-2 (test code = 82876-1) Negative HSV-1 (HERPES SIMPLEX) (test code = 75644-4) Negative HSV-2 (HERPES SIMPLEX) (test code = P0120) Negative Jones [id number] 00:00:00* Test Item Value Reference Range Interpretation Comme nts CHLAMYDIA TRACHOMATIS (test code = 23721-8) Negative ESCHERICHIA COLI (test code = 50018-0) Negative HAEMOPHILUS DUCREYI (test co de = 97180-6) Negative MEGASPHAERA TYPE 1 (test cod e = 84294-8) Negative MEGASPHAERA TYPE 2 (test cod e = 56951-8X) Negative NEISSERIA GONORRHOEAE (test code = 92040-8) Negative PREVOTELLA BIVIA (test code = No code9) Negative TREPONEMA PALLIDUM (test cod e = 99650-8) Negative ATOPOBIUM VAGINAE (test code = 31030-3) Negative ENTEROCOCCUS FAECALIS (test code = 87682-3) Positive GARDNERELLA VAGINALIS (test code = 37353-8) Positive LACTOBACILLUS CRISPATUS (jocelyne t code = 75901-0W) Positive LACTOBACILLUS GASSERI (test code = 87767-0) Negative LACTOBACILLUS INERS (test co de = 18688-2Q) Negative LACTOBACILLUS JENSENII (test code = 33867-1C) Negative MOBILUNCUS CURTISII (test co de = 90001-9C) Negative MOBILUNCUS MULIERIS (test co de = 74336-7) Negative STAPHYLOCOCCUS AUREUS (test code = 76819-7) Negative STREPTOCOCCUS AGALACTIAE (te st code = 66434-9) Positive MYCOPLASMA GENITALIUM (test code = 36604-3) Negative MYCOPLASMA HOMINIS (test cod e = 76767-9N) Negative UREAPLASMA UREALYTICUM (test code = 51931-5Z) Negative TRICHOMONAS VAGINALIS (test code = 33493VH) Negative LISA ALBICANS (test code = 98072-7) Negative LISA AURIS (test code = 18700-6) Negative LISA GLABRATA (test code = 43383-6) Negative LISA KRUSEI (test code = 31729-8) Negative LISA LUSITANIAE (test cod e = 47930-3) Negative LISA PARAPSILOSIS (test c ode = 73161-9) Negative LISA TROPICALIS (test cod e = 93573-3) Negative VANCOMYCIN RESISTANCE MARKER (VANB) (test code = IHABX) Negative VANCOMYCIN RESISTANCE MARKER (VANA1/VANA2) (test code = 07740-6O) Negative BACTEROIDES FRAGILIS (test c ode = 321059-1) Positive BVAB-2 (test code = 52977-9) Negative HSV-1 (HERPES SIMPLEX) (test code = 25573-6) Negative HSV-2 (HERPES SIMPLEX) (test code = P0120) Negative Jones BrowerSED RATE BY MODIFIED [id number] 00:00:00* Test Item Value Reference Range Interpretation Comme nts SED RATE BY MODIFIED MARLEN MOLLY (test code = 4537-7) 2 mm/h Jones Cantu AustinCBC (INCLUDES DIFF/PLT)2024-05-12 00:00:00* Test Item Value Reference [...] cells/uL ABSOLUTE BAND NEUTROPHILS (test code = 88950-3) DNR cells/uL ABSOLUTE METAMYELOCYTES (jocelyne t code = 78215-8) DNR cells/uL ABSOLUTE MYELOCYTES (test code = 43138-1) DNR cells/uL ABSOLUTE PROMYELOCYTES (test code = 55833-4) DNR cells/uL ABSOLUTE LYMPHOCYTES (test code = 731-0) 1798 cells/uL ABSOLUTE MONOCYTES (test cod e = 742-7) 582 cells/uL ABSOLUTE EOSINOPHILS (test code = 711-2) 123 cells/uL ABSOLUTE BASOPHILS (test cod e = 704-7) 73 cells/uL ABSOLUTE BLASTS (test code = 39913-8) DNR cells/uL ABSOLUTE NUCLEATED RBC (test code = 01999-7) DNR cells/uL NEUTROPHILS (test code = 770-8) 54 % BAND NEUTROPHILS (test code = 764-1) DNR % METAMYELOCYTES (test code = 740-1) DNR % MYELOCYTES (test code = 749-2) DNR % PROMYELOCYTES (test code = 783-1) DNR % LYMPHOCYTES (test code = 736-9) 32.1 % REACTIVE LYMPHOCYTES (test code = 99848-5) DNR % MONOCYTES (test code = 5905-5) 10.4 % EOSINOPHILS (test code = 713-8) 2.2 % BASOPHILS (test code = 706-2) 1.3 % BLASTS (test code = 709-6) DNR % NUCLEATED RBC (test code = 11824-0) DNR /100WBC COMMENT(S) (test code = 8251-1) DNR Jones Cantu InocenteCOMPREHENSIVE METABOLIC [id number] 00:00:00* Test Item Value Reference Range Interpretation Comme nts GLUCOSE (test code = 2345-7) 137 mg/dL UREA NITROGEN (BUN) (test code = 3094-0) 22 mg/dL CREATININE (test code = 2160-0) 0.94 mg/dL EGFR (test code = 09244-1) 69 mL/min/1.73m2 BUN/CREATININE RATIO (test code = 3097-3) SEE NOTE: (calc) SODIUM (test code = 2951-2) 140 mmol/L POTASSIUM (test code = 2823-3) 4.1 mmol/L CHLORIDE (test code = 2075-0) 103 mmol/L CARBON DIOXIDE (test code = 2027-9) 24 mmol/L CALCIUM (test code = 81513-7) 9.5 mg/dL PROTEIN, TOTAL (test code = 2885-2) 6.8 g/dL ALBUMIN (test code = 1751-7) 4.2 g/dL GLOBULIN (test code = 14182-5) 2.6 g/dL(calc) ALBUMIN/GLOBULIN RATIO (test code = 1759-0) 1.6 (calc) BILIRUBIN, TOTAL (test code = 1975-2) 0.5 mg/dL ALKALINE PHOSPHATASE (test code = 6768-6) 119 U/L AST (test code = 1920-8) 12 U/L ALT (test code = 1742-6) 26 U/L Jones BrowerHEMOGLOBIN [id number] 00:00:00* Test Item Value Reference Range Interpretation Comme owen HEMOGLOBIN A1c (test code = 4548-4) 7.3 %oftotalHgb Jones BrowerLIPID [id number] 00:00:00* Test Item Value Reference Range Interpretation Comme owen CHOLESTEROL, TOTAL (test cod e = 2093-3) 215 mg/dL HDL CHOLESTEROL (test code = 2085-9) 47 mg/dL TRIGLYCERIDES (test code = 2571-8) 97 mg/dL LDL-CHOLESTEROL (test code = 26589-8) 147 mg/dL(calc) CHOL/HDLC RATIO (test code = 9830-1) 4.6 (calc) NON HDL CHOLESTEROL (test code = 81208-5) 168 mg/dL(calc) Jones BrowerHIV 1/2 ANTIGEN/ANTIBODY,FOURTH GENERATION [id number] 00:00:00* Test Item Value Reference Range Interpretation Comme owen HIV AG/AB, 4TH GEN (test cod e = 36013-4) NON-REACTIVE Jones BrowerMICROALBUMIN, RANDOM URINE (W/CREATININE)2024-05-12 00:00:00* Test Item Value Reference Range Interpretation Comme owen CREATININE, RANDOM URINE (te st code = 2161-8) 87 mg/dL ALBUMIN, URINE (test code = 52288-2) 2.0 mg/dL ALBUMIN/CREATININE RATIO, RA NDOM URINE (test code = 9318-7) 23 mg/gcreat Jones BrowerRHEUMATOID [id number] 00:00:00* Test Item Value Reference Range Interpretation Comme owen RHEUMATOID FACTOR (test code = 28671-4) <10 IU/mL Jones Cantu AustinURIC [id number] 00:00:00* Test Item Value Reference Range Interpretation Comme nts URIC ACID (test code = 3084-1) 4.5 mg/dL Jones Cantu AustinSED RATE BY MODIFIED [id number] 00:00:00* Test Item Value Reference Range Interpretation Comme nts SED RATE BY MODIFIED WESTERG MOLLY (test code = 4537-7) 2 mm/h Jones Cantu AustinCBC (INCLUDES DIFF/PLT)2024-05-12 00:00:00* Test Item Value Reference [...] cells/uL ABSOLUTE BAND NEUTROPHILS (test code = 03089-1) DNR cells/uL ABSOLUTE METAMYELOCYTES (jocelyne t code = 42389-2) DNR cells/uL ABSOLUTE MYELOCYTES (test code = 56339-0) DNR cells/uL ABSOLUTE PROMYELOCYTES (test code = 27671-4) DNR cells/uL ABSOLUTE LYMPHOCYTES (test code = 731-0) 1798 cells/uL ABSOLUTE MONOCYTES (test cod e = 742-7) 582 cells/uL ABSOLUTE EOSINOPHILS (test code = 711-2) 123 cells/uL ABSOLUTE BASOPHILS (test cod e = 704-7) 73 cells/uL ABSOLUTE BLASTS (test code = 45728-1) DNR cells/uL ABSOLUTE NUCLEATED RBC (test code = 37013-1) DNR cells/uL NEUTROPHILS (test code = 770-8) 54 % BAND NEUTROPHILS (test code = 764-1) DNR % METAMYELOCYTES (test code = 740-1) DNR % MYELOCYTES (test code = 749-2) DNR % PROMYELOCYTES (test code = 783-1) DNR % LYMPHOCYTES (test code = 736-9) 32.1 % REACTIVE LYMPHOCYTES (test code = 03472-1) DNR % MONOCYTES (test code = 5905-5) 10.4 % EOSINOPHILS (test code = 713-8) 2.2 % BASOPHILS (test code = 706-2) 1.3 % BLASTS (test code = 709-6) DNR % NUCLEATED RBC (test code = 97819-5) DNR /100WBC COMMENT(S) (test code = 8251-1) DNR Jones Pepe InocenteCOMPREHENSIVE METABOLIC [id number] 00:00:00* Test Item Value Reference Range Interpretation Comme nts GLUCOSE (test code = 2345-7) 137 mg/dL UREA NITROGEN (BUN) (test code = 3094-0) 22 mg/dL CREATININE (test code = 2160-0) 0.94 mg/dL EGFR (test code = 38949-9) 69 mL/min/1.73m2 BUN/CREATININE RATIO (test code = 3097-3) SEE NOTE: (calc) SODIUM (test code = 2951-2) 140 mmol/L POTASSIUM (test code = 2823-3) 4.1 mmol/L CHLORIDE (test code = 2075-0) 103 mmol/L CARBON DIOXIDE (test code = 8-9) 24 mmol/L CALCIUM (test code = 92535-6) 9.5 mg/dL PROTEIN, TOTAL (test code = 2885-2) 6.8 g/dL ALBUMIN (test code = 1751-7) 4.2 g/dL GLOBULIN (test code = 70765-9) 2.6 g/dL(calc) ALBUMIN/GLOBULIN RATIO (test code = 1759-0) 1.6 (calc) BILIRUBIN, TOTAL (test code = 1975-2) 0.5 mg/dL ALKALINE PHOSPHATASE (test code = 6768-6) 119 U/L AST (test code = 1920-8) 12 U/L ALT (test code = 1742-6) 26 U/L Jones BrowerHEMOGLOBIN [id number] 00:00:00* Test Item Value Reference Range Interpretation Comme nts HEMOGLOBIN A1c (test code = 4548-4) 7.3 %oftotalHgb Jones BrowerLIPID [id number] 00:00:00* Test Item Value Reference Range Interpretation Comme nts CHOLESTEROL, TOTAL (test cod e = 2093-3) 215 mg/dL HDL CHOLESTEROL (test code = 2085-9) 47 mg/dL TRIGLYCERIDES (test code = 2571-8) 97 mg/dL LDL-CHOLESTEROL (test code = 31300-4) 147 mg/dL(calc) CHOL/HDLC RATIO (test code = 9830-1) 4.6 (calc) NON HDL CHOLESTEROL (test code = 44619-6) 168 mg/dL(calc) Jones BrowerHIV 1/2 ANTIGEN/ANTIBODY,FOURTH GENERATION [id number] 00:00:00* Test Item Value Reference Range Interpretation Comme nts HIV AG/AB, 4TH GEN (test cod e = 84407-6) NON-REACTIVE Jones BrowerMICROALBUMIN, RANDOM URINE (W/CREATININE)2024-05-12 00:00:00* Test Item Value Reference Range Interpretation Comme nts CREATININE, RANDOM URINE (te st code = 2161-8) 87 mg/dL ALBUMIN, URINE (test code = 34279-6) 2.0 mg/dL ALBUMIN/CREATININE RATIO, RA NDOM URINE (test code = 9318-7) 23 mg/gcreat Jones BrowerRHEUMATOID [id number] 00:00:00* Test Item Value Reference Range Interpretation Comme nts RHEUMATOID FACTOR (test code = 43678-5) <10 IU/mL Jones BrowerURIC [id number] 00:00:00* Test Item Value Reference Range Interpretation Comme nts URIC ACID (test code = 3084-1) 4.5 mg/dL Jones Cantu AustinSED RATE BY MODIFIED [id number] 00:00:00* Test Item Value Reference Range Interpretation [...] cells/uL ABSOLUTE BAND NEUTROPHILS (test code = 51858-7) DNR cells/uL ABSOLUTE METAMYELOCYTES (jocelyne t code = 11399-2) DNR cells/uL ABSOLUTE MYELOCYTES (test code = 31510-0) DNR cells/uL ABSOLUTE PROMYELOCYTES (test code = 66033-7) DNR cells/uL ABSOLUTE LYMPHOCYTES (test code = 731-0) 1798 cells/uL ABSOLUTE MONOCYTES (test cod e = 742-7) 582 cells/uL ABSOLUTE EOSINOPHILS (test code = 711-2) 123 cells/uL ABSOLUTE BASOPHILS (test cod e = 704-7) 73 cells/uL ABSOLUTE BLASTS (test code = 10783-7) DNR cells/uL ABSOLUTE NUCLEATED RBC (test code = 42223-6) DNR cells/uL NEUTROPHILS (test code = 770-8) 54 % BAND NEUTROPHILS (test code = 764-1) DNR % METAMYELOCYTES (test code = 740-1) DNR % MYELOCYTES (test code = 749-2) DNR % PROMYELOCYTES (test code = 783-1) DNR % LYMPHOCYTES (test code = 736-9) 32.1 % REACTIVE LYMPHOCYTES (test code = 82459-3) DNR % MONOCYTES (test code = 5905-5) 10.4 % EOSINOPHILS (test code = 713-8) 2.2 % BASOPHILS (test code = 706-2) 1.3 % BLASTS (test code = 709-6) DNR % NUCLEATED RBC (test code = 26904-8) DNR /100WBC COMMENT(S) (test code = 8251-1) DNR Jones BrowerCOMPREHENSIVE METABOLIC [id number] 00:00:00* Test Item Value Reference Range Interpretation Comme nts GLUCOSE (test code = 2345-7) 137 mg/dL UREA NITROGEN (BUN) (test code = 3094-0) 22 mg/dL CREATININE (test code = 2160-0) 0.94 mg/dL EGFR (test code = 33237-4) 69 mL/min/1.73m2 BUN/CREATININE RATIO (test code = 3097-3) SEE NOTE: (calc) SODIUM (test code = 2951-2) 140 mmol/L POTASSIUM (test code = 2823-3) 4.1 mmol/L CHLORIDE (test code = 2075-0) 103 mmol/L CARBON DIOXIDE (test code = 8-9) 24 mmol/L CALCIUM (test code = 46105-1) 9.5 mg/dL PROTEIN, TOTAL (test code = 2885-2) 6.8 g/dL ALBUMIN (test code = 1751-7) 4.2 g/dL GLOBULIN (test code = 02745-3) 2.6 g/dL(calc) ALBUMIN/GLOBULIN RATIO (test code = 1759-0) 1.6 (calc) BILIRUBIN, TOTAL (test code = 1975-2) 0.5 mg/dL ALKALINE PHOSPHATASE (test code = 6768-6) 119 U/L AST (test code = 1920-8) 12 U/L ALT (test code = 1742-6) 26 U/L Jones BrowerHEMOGLOBIN [id number] 00:00:00* Test Item Value Reference Range Interpretation Comme owen HEMOGLOBIN A1c (test code = 4548-4) 7.3 %oftotalHgb Jones BrowerLIPID [id number] 00:00:00* Test Item Value Reference Range Interpretation Comme nts CHOLESTEROL, TOTAL (test cod e = 2093-3) 215 mg/dL HDL CHOLESTEROL (test code = 2085-9) 47 mg/dL TRIGLYCERIDES (test code = 2571-8) 97 mg/dL LDL-CHOLESTEROL (test code = 15573-3) 147 mg/dL(calc) CHOL/HDLC RATIO (test code = 9830-1) 4.6 (calc) NON HDL CHOLESTEROL (test code = 42178-1) 168 mg/dL(calc) Jones BrowerHIV 1/2 ANTIGEN/ANTIBODY,FOURTH GENERATION [id number] 00:00:00* Test Item Value Reference Range Interpretation Comme nts HIV AG/AB, 4TH GEN (test cod e = 86131-8) NON-REACTIVE Jones BrowerMICROALBUMIN, RANDOM URINE (W/CREATININE)2024-05-12 00:00:00* Test Item Value Reference Range Interpretation Comme nts CREATININE, RANDOM URINE (te st code = 2161-8) 87 mg/dL ALBUMIN, URINE (test code = 77071-7) 2.0 mg/dL ALBUMIN/CREATININE RATIO, RA NDOM URINE (test code = 9318-7) 23 mg/gcreat Jones BrowerRHEUMATOID [id number] 00:00:00* Test Item Value Reference Range Interpretation Comme owen RHEUMATOID FACTOR (test code = 31425-1) <10 IU/mL Jones BrowerURIC [id number] 00:00:00* Test Item Value Reference Range Interpretation Comme nts URIC ACID (test code = 3084-1) 4.5 mg/dL Jones BrowerSED RATE BY MODIFIED [id number] 00:00:00* Test Item Value Reference Range Interpretation [...] cells/uL ABSOLUTE BAND NEUTROPHILS (test code = 86860-4) DNR cells/uL ABSOLUTE METAMYELOCYTES (jocelyne t code = 94678-2) DNR cells/uL ABSOLUTE MYELOCYTES (test code = 82224-9) DNR cells/uL ABSOLUTE PROMYELOCYTES (test code = 57765-2) DNR cells/uL ABSOLUTE LYMPHOCYTES (test code = 731-0) 1798 cells/uL ABSOLUTE MONOCYTES (test cod e = 742-7) 582 cells/uL ABSOLUTE EOSINOPHILS (test code = 711-2) 123 cells/uL ABSOLUTE BASOPHILS (test cod e = 704-7) 73 cells/uL ABSOLUTE BLASTS (test code = 39529-8) DNR cells/uL ABSOLUTE NUCLEATED RBC (test code = 88588-9) DNR cells/uL NEUTROPHILS (test code = 770-8) 54 % BAND NEUTROPHILS (test code = 764-1) DNR % METAMYELOCYTES (test code = 740-1) DNR % MYELOCYTES (test code = 749-2) DNR % PROMYELOCYTES (test code = 783-1) DNR % LYMPHOCYTES (test code = 736-9) 32.1 % REACTIVE LYMPHOCYTES (test code = 21954-5) DNR % MONOCYTES (test code = 5905-5) 10.4 % EOSINOPHILS (test code = 713-8) 2.2 % BASOPHILS (test code = 706-2) 1.3 % BLASTS (test code = 709-6) DNR % NUCLEATED RBC (test code = 76661-0) DNR /100WBC COMMENT(S) (test code = 8251-1) DNR Jones F AustinCOMPREHENSIVE METABOLIC [id number] 00:00:00* Test Item Value Reference Range Interpretation Comme nts GLUCOSE (test code = 2345-7) 137 mg/dL UREA NITROGEN (BUN) (test code = 3094-0) 22 mg/dL CREATININE (test code = 2160-0) 0.94 mg/dL EGFR (test code = 68319-8) 69 mL/min/1.73m2 BUN/CREATININE RATIO (test code = 3097-3) SEE NOTE: (calc) SODIUM (test code = 2951-2) 140 mmol/L POTASSIUM (test code = 2823-3) 4.1 mmol/L CHLORIDE (test code = 2075-0) 103 mmol/L CARBON DIOXIDE (test code = 2027-9) 24 mmol/L CALCIUM (test code = 29577-6) 9.5 mg/dL PROTEIN, TOTAL (test code = 2885-2) 6.8 g/dL ALBUMIN (test code = 1751-7) 4.2 g/dL GLOBULIN (test code = 08754-5) 2.6 g/dL(calc) ALBUMIN/GLOBULIN RATIO (test code = 1759-0) 1.6 (calc) BILIRUBIN, TOTAL (test code = 1975-2) 0.5 mg/dL ALKALINE PHOSPHATASE (test code = 6768-6) 119 U/L AST (test code = 1920-8) 12 U/L ALT (test code = 1742-6) 26 U/L Jones BrowerHEMOGLOBIN [id number] 00:00:00* Test Item Value Reference Range Interpretation Comme [facility] HEMOGLOBIN A1c (test code = 4548-4) 7.3 %oftotalHgb Jones BrowerLIPID [id number] 00:00:00* Test Item Value Reference Range Interpretation Comme [facility] CHOLESTEROL, TOTAL (test cod e = 2093-3) 215 mg/dL HDL CHOLESTEROL (test code = 2085-9) 47 mg/dL TRIGLYCERIDES (test code = 2571-8) 97 mg/dL LDL-CHOLESTEROL (test code = 13532-4) 147 mg/dL(calc) CHOL/HDLC RATIO (test code = 9830-1) 4.6 (calc) NON HDL CHOLESTEROL (test code = 69676-0) 168 mg/dL(calc) Jones BrowerHIV 1/2 ANTIGEN/ANTIBODY,FOURTH GENERATION [id number] 00:00:00* Test Item Value Reference Range Interpretation Comme nts HIV AG/AB, 4TH GEN (test cod e = 09424-3) NON-REACTIVE Jones BrowerMICROALBUMIN, RANDOM URINE (W/CREATININE)2024-05-12 00:00:00* Test Item Value Reference Range Interpretation Comme nts CREATININE, RANDOM URINE (te st code = 2161-8) 87 mg/dL ALBUMIN, URINE (test code = 34609-7) 2.0 mg/dL ALBUMIN/CREATININE RATIO, RA NDOM URINE (test code = 9318-7) 23 mg/gcreat Jones BrowerRHEUMATOID [id number] 00:00:00* Test Item Value Reference Range Interpretation Comme nts RHEUMATOID FACTOR (test code = 63296-4) <10 IU/mL Jones Cantu AustinURIC [id number] 00:00:00* Test Item Value Reference Range Interpretation Comme nts URIC ACID (test code = 3084-1) 4.5 mg/dL Jones Cantu AustinSED RATE BY MODIFIED [id number] 00:00:00* Test Item Value Reference Range Interpretation Comme nts SED RATE BY MODIFIED WESTERG MOLLY (test code = 4537-7) 2 mm/h Jones Cantu AustinCBC (INCLUDES DIFF/PLT)2024-05-12 00:00:00* Test Item Value Reference [...] cells/uL ABSOLUTE BAND NEUTROPHILS (test code = 33891-6) DNR cells/uL ABSOLUTE METAMYELOCYTES (jocelyne t code = 76594-1) DNR cells/uL ABSOLUTE MYELOCYTES (test code = 04472-5) DNR cells/uL ABSOLUTE PROMYELOCYTES (test code = 74954-6) DNR cells/uL ABSOLUTE LYMPHOCYTES (test code = 731-0) 1798 cells/uL ABSOLUTE MONOCYTES (test cod e = 742-7) 582 cells/uL ABSOLUTE EOSINOPHILS (test code = 711-2) 123 cells/uL ABSOLUTE BASOPHILS (test cod e = 704-7) 73 cells/uL ABSOLUTE BLASTS (test code = 11183-1) DNR cells/uL ABSOLUTE NUCLEATED RBC (test code = 20909-5) DNR cells/uL NEUTROPHILS (test code = 770-8) 54 % BAND NEUTROPHILS (test code = 764-1) DNR % METAMYELOCYTES (test code = 740-1) DNR % MYELOCYTES (test code = 749-2) DNR % PROMYELOCYTES (test code = 783-1) DNR % LYMPHOCYTES (test code = 736-9) 32.1 % REACTIVE LYMPHOCYTES (test code = 03315-3) DNR % MONOCYTES (test code = 5905-5) 10.4 % EOSINOPHILS (test code = 713-8) 2.2 % BASOPHILS (test code = 706-2) 1.3 % BLASTS (test code = 709-6) DNR % NUCLEATED RBC (test code = 22250-8) DNR /100WBC COMMENT(S) (test code = 8251-1) DNR Jones BrowerCOMPREHENSIVE METABOLIC [id number] 00:00:00* Test Item Value Reference Range Interpretation Comme nts GLUCOSE (test code = 2345-7) 137 mg/dL UREA NITROGEN (BUN) (test code = 3094-0) 22 mg/dL CREATININE (test code = 2160-0) 0.94 mg/dL EGFR (test code = 95858-7) 69 mL/min/1.73m2 BUN/CREATININE RATIO (test code = 3097-3) SEE NOTE: (calc) SODIUM (test code = 2951-2) 140 mmol/L POTASSIUM (test code = 2823-3) 4.1 mmol/L CHLORIDE (test code = 2075-0) 103 mmol/L CARBON DIOXIDE (test code = 2027-9) 24 mmol/L CALCIUM (test code = 16116-5) 9.5 mg/dL PROTEIN, TOTAL (test code = 2885-2) 6.8 g/dL ALBUMIN (test code = 1751-7) 4.2 g/dL GLOBULIN (test code = 22577-1) 2.6 g/dL(calc) ALBUMIN/GLOBULIN RATIO (test code = 1759-0) 1.6 (calc) BILIRUBIN, TOTAL (test code = 1975-2) 0.5 mg/dL ALKALINE PHOSPHATASE (test code = 6768-6) 119 U/L AST (test code = 1920-8) 12 U/L ALT (test code = 1742-6) 26 U/L Jones BrowerHEMOGLOBIN [id number] 00:00:00* Test Item Value Reference Range Interpretation Comme owen HEMOGLOBIN A1c (test code = 4548-4) 7.3 %oftotalHgb Jones BrowerLIPID [id number] 00:00:00* Test Item Value Reference Range Interpretation Comme owen CHOLESTEROL, TOTAL (test cod e = 2093-3) 215 mg/dL HDL CHOLESTEROL (test code = 2085-9) 47 mg/dL TRIGLYCERIDES (test code = 2571-8) 97 mg/dL LDL-CHOLESTEROL (test code = 19894-9) 147 mg/dL(calc) CHOL/HDLC RATIO (test code = 9830-1) 4.6 (calc) NON HDL CHOLESTEROL (test code = 07991-3) 168 mg/dL(calc) Jones BrowerHIV 1/2 ANTIGEN/ANTIBODY,FOURTH GENERATION [id number] 00:00:00* Test Item Value Reference Range Interpretation Comme owen HIV AG/AB, 4TH GEN (test cod e = 04995-4) NON-REACTIVE Jones BrowerMICROALBUMIN, RANDOM URINE (W/CREATININE)2024-05-12 00:00:00* Test Item Value Reference Range Interpretation Comme owen CREATININE, RANDOM URINE (te st code = 2161-8) 87 mg/dL ALBUMIN, URINE (test code = 59826-2) 2.0 mg/dL ALBUMIN/CREATININE RATIO, RA NDOM URINE (test code = 9318-7) 23 mg/gcreat Jones BrowerRHEUMATOID [id number] 00:00:00* Test Item Value Reference Range Interpretation Comme owen RHEUMATOID FACTOR (test code = 26880-4) <10 IU/mL Jones BrowerURIC [id number] 00:00:00* Test Item Value Reference Range Interpretation Comme nts URIC ACID (test code = 3084-1) 4.5 mg/dL Jones Cantu AustinPOCT Urinalysis W Specific [id number] 20:07:00* Test Item Value Reference Range Interpretation [...] cloudy Lab Interpretation (test cod e = 61842-3) [facility]normal [facility]ochond[facility]2 Ab, [id number] 05:24:49* Test Item Value Reference Range Interpretation Comme nts AMA (test code = 91636-2) 1.8 0.0-24.9 REFERENCE INTERV AL: Mitochondrial (M2) [...] result does not rule out PBC.Performed By: [facility] [place] [id number] Director: Cristian Silva MD, PhDCLIA Number: [id number] [facility] TexasAnti-Nuclear Antibody-Pathologist [id number] 02:14:56ANA - Pathologist InterpretationANA HEp-2 IIFA Pathologist [...] MD ?01/13/2024 ?9:14 PM 01/13/2024 9:14 PM [facility] [place]Anti-Nuclear Antibody [id number] 21:23:34 * Test Item Value Reference Range Interpretation Comme nts CHIRAG Titer by IFA (test code = 8975410499) 1:160 CHIRAG Pattern (test code = 6033676532) Speckled LUCIUS (test code = LUCIUS) Anti-nuclear [...] specimen will be held for 7 days. [facility] [place] Antib[facility] Ursfbm2599-68-12 21:44:16* Test Item Value Reference Range Interpretation Comme nts CHIRAG (test code = 2949864916) Positive Negative A LUCIUS (test code = LUCIUS) Negative: ?No Anti-Nuclear Antibodies detected by IFA. Positive: ?CHIRAG IFA screen performed with a 1:80 dilution in adults and a 1:40 dilution in pediatrics. ?A titer is performed and reported separately when the CHIRAG is "Positive" or when "Cytoplasmic staining is observed." Lab Interpretation (test code = 44761-3) Abnormal [facility] TexasHav Antibody (IgG and IgM)2024-01-10 07:21:32 * Test Item Value Reference Range Interpretation Comme nts HAV Total (test code = 8954676943) Positive HAVT Semi-Quantitative (test code = 7664649470) 0.07 LUCIUS (test code = LUCIUS) Indicates past or present infection with HAV or exposure to HAV due to vaccination. [facility] Surface Gpyijzqj0773-16-13 07:09:56* Test Item Value Reference Range Interpretation Comme nts HBsAB (test code = 3536636929) Negative HBsAb Semi-Quantitative (test code = 6252702349) 0.10 mIU/mL LUCIUS (test code = LUCIUS) Interpretation: ?Hepatitis B Surface Antibody ? Negative - Patient is considered to be not immune to infection with HBV. ? ? Positive - Anti-HBs detected at greater than or equal to 12 mIU/mL. ?Patient is considered to be immune to infection with HBV. ? [facility] TexasHcv Sljbgrpc1767-91-33 07:09:56* Test Item Value Reference Range Interpretation Comme [facility] HCV Ab (test code = 14123-7) Negative HCV Semi-Quantitative (test code = 40214-9) 0.07 [facility]Triiodothyronine2024-10-26 07:01:13* Test Item Value Reference Range Interpretation Comme nts T3 (test code = 5205671212) 112.0 ng/dL 97.0-170.0 Lab Interpretation (test cod e = 34327-9) Normal [facility] B Surface [id number] 06:52:48 * Test Item Value Reference Range Interpretation Comme nts HBsAg Semi-Quantitative (jocelyne t code = 5195-3) 0.10 Negative [facility]. Metabolic Panel (36748)2024-01-09 23:57:24* Test Item Value Reference Range Interpretation Comme nts NA (test code = 9856752578) 140 mmol/L 135-145 K (test code = 0814188076) 4.2 mmol/L 3.5-5.0 CL (test code = 4478369140) 103 mmol/L 98-108 CO2 TOTAL (test code = 6005007227) 32 mmol/L 23-31 H AGAP (test code = 0254329641) 5 2-16 BUN (test code = 3461380365) 24 mg/dL 7-23 H GLUCOSE (test code = 5987450971) 112 mg/dL 70-110 H CREATININE (test code = 2160-0) 1.17 mg/dL 0.50-1.04 H TOTAL BILI (test code = 7606589654) 0.8 mg/dL 0.1-1.1 CALCIUM (test code = 8686611808) 10.5 mg/dL 8.6-10.6 T PROTEIN (test code = 4828831770) 7.2 g/dL 6.3-8.2 ALBUMIN (test code = 7506285605) 4.2 g/dL 3.5-5.0 ALK PHOS (test code = 4336087294) 98 U/L 34-122 ALTv (test code = 1742-6) 64 U/L 5-35 H AST(SGOT) (test code = 1964380924) 39 U/L 13-40 eGFR (test code = 85567-7) 53.9 mL/min/1.73m2 CKD-EPI eGFR (2020). Assuming creatinine has been stable day-to-day for at least three months, the eGFR indicates Category G3a (45 - 59 mL/min/1.73 m2) Lab Interpretation (test code = 39584-4) Abnormal [facility] Urinalysis W Specific [id number] 21:53:00* Test Item Value Reference Range Interpretation [...] 3267) Lab Interpretation (test cod e = 54661-5) Abnormal [facility] TexasGlycosylated Hemoglobin (A1C)2023-09-11 01:04:49* Test Item Value Reference Range Interpretation Comme nts HGB A1C (test code = 4548-4) 5.8 % 4.0-5.7 H LUCIUS (test code = LUCIUS) Reference RangesNormal: <5.7%Prediabetes: 5.7 - 6.4%Diabetes: > 6.5% Lab Interpretation (test code = 92592-9) Abnormal [facility] TexasFree [id number] 23:46:07* Test Item Value Reference Range Interpretation Comme nts FREE T4 (test code = 9300029837) 0.96 0.78-2.20 Lab Interpretation (test cod e = 84746-2) Normal [facility] Xoopqxw4745-02-34 20:15:52 * Test Item Value Reference Range Interpretation Comme nts TSH (test code = 0928534616) 8.75 0.45-4.70 H Lab Interpretation (test cod e = 02275-9) Abnormal [facility] Texas[facility]id [facility] (44270)(Total Cholesterol, Triglycerides, HDL)2023-09-10 19:47:06* Test Item Value Reference Range Interpretation Comme nts CHOL (test code = 4567561728) 100 mg/dL 120-200 L HDL (test code = 3504777381) 47 mg/dL >=50 L HDLC RATIO (test code = 1467822619) 2.1 <=4.5 TRIG (test code = 6750000738) 65 mg/dL 30-170 LDL CHOL (test code = 83545-0) 40 mg/dL <=160 VLDL (test code = 2530459867) 13 mg/dL 5-60 Lab Interpretation (test cod e = 49523-4) Abnormal [facility] Metabolic [facility] (50577)2023-09-10 19:46:45* Test Item Value Reference Range Interpretation Comme nts NA (test code = 9705407416) 143 mmol/L 135-145 K (test code = 2014394851) 3.9 mmol/L 3.5-5.0 CL (test code = 3203405195) 105 mmol/L 98-108 CO2 TOTAL (test code = 1642395087) 30 mmol/L 23-31 AGAP (test code = 3813414006) 8 2-16 BUN (test code = 8582079050) 16 mg/dL 7-23 GLUCOSE (test code = 4062139302) 91 mg/dL 70-110 CREATININE (test code = 2160-0) 0.88 mg/dL 0.50-1.04 TOTAL BILI (test code = 8437669328) 0.6 mg/dL 0.1-1.1 CALCIUM (test code = 0718915254) 10.5 mg/dL 8.6-10.6 T PROTEIN (test code = 3065166226) 6.5 g/dL 6.3-8.2 ALBUMIN (test code = 0833884391) 4.0 g/dL 3.5-5.0 ALK PHOS (test code = 8434662703) 159 U/L 34-122 H ALTv (test code = 1742-6) 74 U/L 5-35 H AST(SGOT) (test code = 1309062611) 45 U/L 13-40 H eGFR (test code = 04642-4) 75.8 mL/min/1.73m2 CKD-EPI eGFR (2020). Assuming creatinine has been stable day-to-day for at least three months, the eGFR indicates Category G2 (60 - 89 mL/min/1.73 m2) Lab Interpretation (test code = 68908-8) Abnormal [facility] with [id number] 19:46:05* Test Item Value Reference Range Interpretation [...] 32.4 g/dL 31.6-35.1 RDW-SD (test code = 82818-1) 46.5 fL 39.0-49.9 RDW-CV (test code = 788-0) 13.2 % 12.0-15.5 PLT (test code = 777-3) 235 166-358 MPV (test code = 99908-4) 11.6 fL 9.5-12.9 NRBC/100 WBC (test code = 9473754439) 0.0 0.0-10.0 NRBC x10^3 (test code = 0526592052) See_Comment [Automated messa ge] The system which generated this result transmitted reference range: 10*3/?L. The reference range was not used to interpret this result as normal/abnormal. GRAN MAT (NEUT) % (test code = 770-8) 68.6 % IMM GRAN % (test code = 7370896514) 0.20 % LYMPH % (test code = 736-9) 19.4 % MONO % (test code = 5905-5) 8.2 % EOS % (test code = 713-8) 2.5 % BASO % (test code = 706-2) 1.1 % GRAN MAT x10^3(ANC) (test code = 9966315945) 3.86 10*3/uL 1.88-7.09 IMM GRAN x10^3 (test code = 6239771392) 0.00-0.06 LYMPH x10^3 (test code = 731-0) 1.09 10*3/uL 1.32-3.29 L MONO x10^3 (test code = 742-7) 0.46 10*3/uL 0.33-0.92 EOS x10^3 (test code = 711-2) 0.14 10*3/uL 0.03-0.39 BASO x10^3 (test code = 704-7) 0.06 10*3/uL 0.01-0.07 Lab Interpretation (test code = 81272-8) Abnormal [facility]+ VW [id number] 02:24:03EXAM: XR HAND 3+ VW RIGHT HISTORY: 58 years old Female; right thumb pain COMPARISON: None FINDINGS:Radiographs of the right hand demonstrate soft tissue swelling about thethumb without underlying acute fracture. 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 Generalized osteopenia isnoted.[facility] TexasREFERRAL- REQUEST/[id number] 21:13:52Ordered by an unspecified provider.[facility] REFERRAL- REQUEST/[id number] 20:59:23Ordered by an unspecified provider. [facility] TexasFL TIME OR (NON-REPORTABLE)2023-06-17 14:39:42 These images do not require a Radiology diagnostic report.[facility] TexasUrine Nqzfcpd3013-39-42 11:52:56* Test Item Value Reference Range Interpretation Comme nts URINE CULTURE (test code = 630-4) No aerobic growth (< 1000 CFU/mL) [facility] TexasIntubation2024-03-28 21:52:00Jenaro Padilla MD ? ? 06/12/2023 ?5:14 [...] of attempts at approach: 1Ventilation [facility]: [facility]2023-06-12 18:36:22* Test Item Value Reference Range Interpretation Comme nts POCT GLU (test code = 9551988937) 86 mg/dL 70-110 Lab Interpretation (test cod e = 44157-6) Normal [facility] GLUCOSE (AUTOMATED)2023-06-12 18:36:22* Test Item Value Reference Range Interpretation Comme nts POCT GLU (test code = 3483088850) 86 mg/dL 70-110 Lab Interpretation (test cod e = 18454-8) Normal [facility] GLUCOSE (AUTOMATED)2023-06-12 18:36:22* Test Item Value Reference Range Interpretation Comme nts POCT GLU (test code = 8050907775) 86 mg/dL 70-110 Lab Interpretation (test cod e = 58541-0) Normal [facility]. METABOLIC PANEL (33425)2023-06-05 01:00:22* Test Item Value Reference Range Interpretation Comme nts NA (test code = 7585449749) 137 mmol/L 135-145 K (test code = 7974355682) 3.9 mmol/L 3.5-5.0 CL (test code = 9629604743) 101 mmol/L 98-108 CO2 TOTAL (test code = 1978419085) 28 mmol/L 23-31 AGAP (test code = 0338498969) 8 2-16 BUN (test code = 2855884535) 17 mg/dL 7-23 GLUCOSE (test code = 5412500081) 62 mg/dL 70-110 L CREATININE (test code = 2160-0) 1.04 mg/dL 0.50-1.04 TOTAL BILI (test code = 8559362289) 0.5 mg/dL 0.1-1.1 CALCIUM (test code = 5101621895) 9.2 mg/dL 8.6-10.6 T PROTEIN (test code = 1179685101) 6.8 g/dL 6.3-8.2 ALBUMIN (test code = 0023483414) 3.8 g/dL 3.5-5.0 ALK PHOS (test code = 2375498469) 237 U/L 34-122 H ALTv (test code = 1742-6) 119 U/L 5-35 H AST(SGOT) (test code = 4761396645) 59 U/L 13-40 H eGFR (test code = 87859-4) 62.0 mL/min/1.73m2 CKD-EPI eGFR (2020). Assuming creatinine has been stable day-to-day for at least three months, the eGFR indicates Category G2 (60 - 89 mL/min/1.73 m2) Lab Interpretation (test code = 23749-2) Abnormal [facility] WITH [id number] 00:59:46* Test Item Value Reference Range Interpretation [...] 34.4 g/dL 31.6-35.1 RDW-SD (test code = 45322-5) 41.2 fL 39.0-49.9 RDW-CV (test code = 788-0) 12.4 % 12.0-15.5 PLT (test code = 777-3) 306 166-358 MPV (test code = 54378-7) 10.5 fL 9.5-12.9 NRBC/100 WBC (test code = 2710985878) 0.0 0.0-10.0 NRBC x10^3 (test code = 8647139139) See_Comment [Automated messa ge] The system which generated this result transmitted reference range: 10*3/?L. The reference range was not used to interpret this result as normal/abnormal. GRAN MAT (NEUT) % (test code = 770-8) 66.4 % IMM GRAN % (test code = 3557108620) 0.50 % LYMPH % (test code = 736-9) 13.9 % MONO % (test code = 5905-5) 14.3 % EOS % (test code = 713-8) 4.4 % BASO % (test code = 706-2) 0.5 % GRAN MAT x10^3(ANC) (test code = 4607439401) 6.19 10*3/uL 1.88-7.09 IMM GRAN x10^3 (test code = 1638411869) 0.05 10*3/uL 0.00-0.06 LYMPH x10^3 (test code = 731-0) 1.30 10*3/uL 1.32-3.29 L MONO x10^3 (test code = 742-7) 1.34 10*3/uL 0.33-0.92 H EOS x10^3 (test code = 711-2) 0.41 10*3/uL 0.03-0.39 H BASO x10^3 (test code = 704-7) 0.05 10*3/uL 0.01-0.07 Lab Interpretation (test code = 00086-8) Abnormal [facility] GLUCOSE (AUTOMATED)2023-06-03 17:26:28* Test Item Value Reference Range Interpretation Comme nts POCT GLU (test code = 5356826260) 188 mg/dL 70-110 H Lab Interpretation (test cod e = 14300-9) Abnormal [facility] GLUCOSE (AUTOMATED)2023-06-03 17:26:28* Test Item Value Reference Range Interpretation Comme nts POCT GLU (test code = 1333801516) 188 mg/dL 70-110 H Lab Interpretation (test cod e = 64919-1) Abnormal [facility] GLUCOSE (AUTOMATED)2023-06-03 12:58:09* Test Item Value Reference Range Interpretation Comme nts POCT GLU (test code = 7567445632) 219 mg/dL 70-110 H Lab Interpretation (test cod e = 66345-1) Abnormal [facility] GLUCOSE (AUTOMATED)2023-06-03 12:58:09* Test Item Value Reference Range Interpretation Comme nts POCT GLU (test code = 0677410195) 219 mg/dL 70-110 H Lab Interpretation (test cod e = 84800-5) Abnormal [facility] GLUCOSE (AUTOMATED)2023-06-03 08:12:22* Test Item Value Reference Range Interpretation Comme nts POCT GLU (test code = 8324236583) 198 mg/dL 70-110 H Lab Interpretation (test cod e = 56106-5) [facility] 08:12:22* Test Item Value Reference Range Interpretation Comme nts POCT GLU (test code = 2286134445) 198 mg/dL 70-110 H Lab Interpretation (test cod e = 77666-3) Abnormal [facility] GLUCOSE (AUTOMATED)2023-06-03 05:04:01* Test Item Value Reference Range Interpretation Comme nts POCT GLU (test code = 7554394579) 330 mg/dL 70-110 H Lab Interpretation (test cod e = 79217-3) Abnormal [facility] GLUCOSE (AUTOMATED)2023-06-03 05:04:01* Test Item Value Reference Range Interpretation Comme nts POCT GLU (test code = 2944879979) 330 mg/dL 70-110 H Lab Interpretation (test cod e = 68405-1) [facility]normal [facility]2023-06-03 01:51:02* Test Item Value Reference Range Interpretation Comme nts POCT GLU (test code = 7618549691) 418 mg/dL 70-110 H Lab Interpretation (test cod e = 45568-6) [facility]normal [facility]2023-06-03 01:51:02* Test Item Value Reference Range Interpretation Comme nts POCT GLU (test code = 2965136871) 418 mg/dL 70-110 H Lab Interpretation (test cod e = 48912-3) [facility]normal [facility]2023-06-02 21:47:04* Test Item Value Reference Range Interpretation Comme nts POCT GLU (test code = 7145612268) 192 mg/dL 70-110 H Lab Interpretation (test cod e = 62311-5) Abnormal [facility] GLUCOSE (AUTOMATED)2023-06-02 21:47:04* Test Item Value Reference Range Interpretation Comme nts POCT GLU (test code = 7179492478) 192 mg/dL 70-110 H Lab Interpretation (test cod e = 79510-4) Abnormal [facility] TIME OR (NON-REPORTABLE)2023-06-02 18:12:07 These images do not require a Radiology diagnostic report.[facility] TIME OR (NON-REPORTABLE)2023-06-02 18:12:07These images do not require a Radiology diagnostic report.[facility] GLUCOSE (AUTOMATED)2023-06-02 01:58:20* Test Item Value Reference Range Interpretation Comme nts POCT GLU (test code = 9619401165) 193 mg/dL 70-110 H Lab Interpretation (test cod e = 87630-0) Abnormal [facility] GLUCOSE (AUTOMATED)2023-06-02 01:58:20* Test Item Value Reference Range Interpretation Comme nts POCT GLU (test code = 2361842779) 193 mg/dL 70-110 H Lab Interpretation (test cod e = 54968-9) Abnormal [facility] GLUCOSE (AUTOMATED)2023-06-01 22:27:31* Test Item Value Reference Range Interpretation Comme nts POCT GLU (test code = 4478971315) 98 mg/dL 70-110 Lab Interpretation (test cod e = 47833-8) Normal [facility] GLUCOSE (AUTOMATED)2023-06-01 22:27:31* Test Item Value Reference Range Interpretation Comme nts POCT GLU (test code = 4670874356) 98 mg/dL 70-110 Lab Interpretation (test cod e = 62876-0) Normal [facility] Glucose (Age >30 Days)2023-06-01 22:27:00 * Test Item Value Reference Range Interpretation Comme nts POCT Glu (age>30days) (test code = 3342) 98 mg/dL 70-110 Lab Interpretation (test cod e = 42541-1) Normal [facility] Glucose (Age >30 Days)2023-06-01 22:27:00 * Test Item Value Reference Range Interpretation Comme nts POCT Glu (age>30days) (test code = 3342) 98 mg/dL 70-110 Lab Interpretation (test cod e = 76217-4) [facility] 2 [id number] 18:01:12Chest, two views History: ?cough [facility] [id number] 18:01:12Chest, two views History: ?cough Ordering Physician: [facility]CT [facility] WO [id number] 17:53:09EXAM: CT ABDOMEN AND PELVIS WITHOUT CONTRAST [...] TISSUES: No suspicious lytic or sclerotic bony lesions.[facility] CONTRAST 2023-06-01 17:53:09EXAM: CT [...] TISSUES: No suspicious lytic or sclerotic bony lesions.[facility] WITH [id number] 17:05:51* Test Item Value Reference Range Interpretation [...] 34.1 g/dL 31.6-35.1 RDW-SD (test code = 33388-4) 41.0 fL 39.0-49.9 RDW-CV (test code = 788-0) 12.1 % 12.0-15.5 PLT (test code = 777-3) 273 166-358 MPV (test code = 08693-1) 10.6 fL 9.5-12.9 NRBC/100 WBC (test code = 6711500653) 0.0 0.0-10.0 NRBC x10^3 (test code = 4416248266) See_Comment [Automated messa ge] The system which generated this result transmitted reference range: 10*3/?L. The reference range was not used to interpret this result as normal/abnormal. GRAN MAT (NEUT) % (test code = 770-8) 75.9 % IMM GRAN % (test code = 8829928541) 0.30 % LYMPH % (test code = 736-9) 10.6 % MONO % (test code = 5905-5) 12.3 % EOS % (test code = 713-8) 0.5 % BASO % (test code = 706-2) 0.4 % GRAN MAT x10^3(ANC) (test code = 1144971023) 9.36 10*3/uL 1.88-7.09 H IMM GRAN x10^3 (test code = 0979389291) 0.04 10*3/uL 0.00-0.06 LYMPH x10^3 (test code = 731-0) 1.30 10*3/uL 1.32-3.29 L MONO x10^3 (test code = 742-7) 1.51 10*3/uL 0.33-0.92 H EOS x10^3 (test code = 711-2) 0.06 10*3/uL 0.03-0.39 BASO x10^3 (test code = 704-7) 0.05 10*3/uL 0.01-0.07 Lab Interpretation (test code = 66064-1) Abnormal [facility] WITH [id number] 17:05:51* Test Item Value Reference Range Interpretation [...] 34.1 g/dL 31.6-35.1 RDW-SD (test code = 90638-7) 41.0 fL 39.0-49.9 RDW-CV (test code = 788-0) 12.1 % 12.0-15.5 PLT (test code = 777-3) 273 166-358 MPV (test code = 59022-2) 10.6 fL 9.5-12.9 NRBC/100 WBC (test code = 8121630366) 0.0 0.0-10.0 NRBC x10^3 (test code = 6978894949) See_Comment [Automated messa ge] The system which generated this result transmitted reference range: 10*3/?L. The reference range was not used to interpret this result as normal/abnormal. GRAN MAT (NEUT) % (test code = 770-8) 75.9 % IMM GRAN % (test code = 1274229951) 0.30 % LYMPH % (test code = 736-9) 10.6 % MONO % (test code = 5905-5) 12.3 % EOS % (test code = 713-8) 0.5 % BASO % (test code = 706-2) 0.4 % GRAN MAT x10^3(ANC) (test code = 2601303573) 9.36 10*3/uL 1.88-7.09 H IMM GRAN x10^3 (test code = 8171801286) 0.04 10*3/uL 0.00-0.06 LYMPH x10^3 (test code = 731-0) 1.30 10*3/uL 1.32-3.29 L MONO x10^3 (test code = 742-7) 1.51 10*3/uL 0.33-0.92 H EOS x10^3 (test code = 711-2) 0.06 10*3/uL 0.03-0.39 BASO x10^3 (test code = 704-7) 0.05 10*3/uL 0.01-0.07 Lab Interpretation (test code = 97624-6) Abnormal [facility] METABOLIC PANEL (87955)2023-06-01 16:54:45* Test Item Value Reference Range Interpretation Comme nts NA (test code = 7344521757) 136 mmol/L 135-145 K (test code = 2085043852) 4.3 mmol/L 3.5-5.0 CL (test code = 6671077563) 102 mmol/L 98-108 CO2 TOTAL (test code = 8944752966) 26 mmol/L 23-31 AGAP (test code = 0854116800) 8 2-16 BUN (test code = 6764309107) 23 mg/dL 7-23 GLUCOSE (test code = 5425768484) 154 mg/dL 70-110 H CREATININE (test code = 2160-0) 1.36 mg/dL 0.50-1.04 H TOTAL BILI (test code = 3837028996) 0.9 mg/dL 0.1-1.1 CALCIUM (test code = 5300050840) 9.3 mg/dL 8.6-10.6 T PROTEIN (test code = 5375208691) 6.9 g/dL 6.3-8.2 ALBUMIN (test code = 3115596259) 4.2 g/dL 3.5-5.0 ALK PHOS (test code = 5591231242) 190 U/L 34-122 H ALTv (test code = 1742-6) 62 U/L 5-35 H AST(SGOT) (test code = 8315877023) 54 U/L 13-40 H eGFR (test code = 95282-7) 45.0 mL/min/1.73m2 CKD-EPI eGFR (2020). Assuming creatinine has been stable day-to-day for at least three months, the eGFR indicates Category G3a (45 - 59 mL/min/1.73 m2) Lab Interpretation (test code = 75366-4) Abnormal [facility]LIPASE2024-[facility]17 16:54:45* Test Item Value Reference Range Interpretation Comme nts LIPASE (test code = 6163048997) 39 U/L 0-220 Lab Interpretation (test cod e = 36001-1) Normal [facility]. METABOLIC PANEL (60664)2023-06-01 16:54:45* Test Item Value Reference Range Interpretation Comme nts NA (test code = 1789477681) 136 mmol/L 135-145 K (test code = 9916858181) 4.3 mmol/L 3.5-5.0 CL (test code = 7039747456) 102 mmol/L 98-108 CO2 TOTAL (test code = 4982765234) 26 mmol/L 23-31 AGAP (test code = 0860583817) 8 2-16 BUN (test code = 2058967989) 23 mg/dL 7-23 GLUCOSE (test code = 9282688522) 154 mg/dL 70-110 H CREATININE (test code = 2160-0) 1.36 mg/dL 0.50-1.04 H TOTAL BILI (test code = 9136936801) 0.9 mg/dL 0.1-1.1 CALCIUM (test code = 8361090777) 9.3 mg/dL 8.6-10.6 T PROTEIN (test code = 1328072734) 6.9 g/dL 6.3-8.2 ALBUMIN (test code = 7546006090) 4.2 g/dL 3.5-5.0 ALK PHOS (test code = 8067312377) 190 U/L 34-122 H ALTv (test code = 1742-6) 62 U/L 5-35 H AST(SGOT) (test code = 7973910186) 54 U/L 13-40 H eGFR (test code = 62387-7) 45.0 mL/min/1.73m2 CKD-EPI eGFR (2020). Assuming creatinine has been stable day-to-day for at least three months, the eGFR indicates Category G3a (45 - 59 mL/min/1.73 m2) Lab Interpretation (test code = 43679-6) Abnormal [facility]ASE2024-[facility]-17 16:54:45* Test Item Value Reference Range Interpretation Comme nts LIPASE (test code = 5707136238) 39 U/L 0-220 Lab Interpretation (test cod e = 27283-9) Normal [facility] TexasBASI METABOLIC [id number] 03:30:00* Test Item Value Reference Range Interpretation [...] = POCGLU) 94 MG/DL 70-110 N URINALYSIS [id number] 03:16:00* Test Item Value Reference Range Interpretation [...] (test code = EDLEUK) Large Negative A [facility] [place], [address], Hemoglobin A1c measurement device [id number] 14:58:00* Test Item Value Reference Range Interpretation Comme [facility] Hemoglobin A1c/Hemoglobin.to ayush in Blood (test code = 4548-4) 6.1 % 4.0-6.4 [facility]AG dybsfbbtwh7208-16-43 00:00:00* Test Item Value Reference Range Interpretation Comme [facility] Hemoglobin A1c/Hemoglobin.to ayush in Blood (test code = 4548-4) 15.1 % 4.8-5.6 H estim. avg glu (EAG) (test c ode = estim. avg glu (EAG)) 387 mg/dL [facility]Micro[facility]/Creatinine [Mass Ratio] in Pkedu7016-41-00 00:00:00* Test Item Value Reference Range Interpretation Comme nts microalbumin random urine (test code = microalbumin random urine) 7 ug/mL creatinine random urine (jocelyne t code = creatinine random urine) 35.7 mg/dL 20.0-320.0 microalbumin/creatinine (random urine) ratio calculated (test code = microalbumin/creatinine (random urine) ratio calculated) 20 mcg/mg creat [facility] CenterComprehensive [facility] 2000 panel - Serum [...] (test code = anion gap) 13 calc [facility] CenterUrinal[facility] complete panel - [id number] 00:00:00* Test Item Value Reference Range Interpretation [...] examination (jocelyne t code = microscopic examination) [facility], goyzgfjobrp0271-53-01 00:00:00* Test Item Value Reference Range Interpretation [...] comment comment (test code = comment) comment [facility] W Auto Differential panel - [id number] 00:00:00 * Test Item Value Reference Range [...] (test code = baso#) 0.08 x10*3/?L 0.01-0.08 [facility] CenterThyroxine (T4) free [Mass/volume] in Serum or Plasma 2022-04-05 00:00:00* Test Item Value Reference Range Interpretation Comme nts T4 free (test code = T4 free) 1.10 NG/dL 0.70-1.48 [facility] CenterLipid 1996 panel - Serum or [id number] 00:00:00* Test Item Value Reference Range Interpretation [...] (test code = 2089-1) see comment <130 [facility] CenterEkheicmy12-Edptmonekuisoz D3+25-Hydroxyvitamin D2 [Mass/volume] in Serum or Tnhzpx3933-26-19 00:00:00* Test Item Value Reference Range Interpretation Comme [facility] vitamin D 25OH (test code = vitamin D 25OH) 19.2 NG/mL 30.0-96.0 L [facility] CenterThyrotropin [Units/volume] in Serum or Fodrfg7729-99-30 00:00:00* Test Item Value Reference Range Interpretation Comme [facility] TSH (test code = TSH) 3.371 uIU/mL 0.350-4.940 [facility] CenterTriiodothyronine (T3) Free [Mass/volume] in Serum or [id number] 00:00:00* Test Item Value Reference Range Interpretation Comme [facility] T3 free (test code = T3 free) 1.95 pg/mL 1.58-3.91 [facility] CenterHemoglobin A1c/Hemoglobin.total in Meivj4548-79-17 00:00:00* Test Item Value Reference Range Interpretation Comme [facility] Hemoglobin A1c/Hemoglobin.to ayush in Blood (test code = 4548-4) 13.8 % 1.0-5.7 H average blood glucose (calcu lation) (test code = average blood glucose (calculation)) 349 mg/dL [facility] CenterBacteria identified in Urine by Qpfblvr4800-25-84 00:00:00* Test Item Value Reference Range Interpretation Comme [facility] urine culture, routine (test code = urine culture, routine) final report A result 1 (test code = result 1) escherichia coli A antimicrobial susceptibility (test code = antimicrobial susceptibility) comment [facility] CenterUrinalysis macro (dipstick) panel - [id number] 17:24:00* Test Item Value Reference Range Interpretation Comme nts Interpretation UA test performed using: (test code = Interpretation UA test performed using:) Automated device/analyzer ([id number]) Interpretation Color (test code = Interpretation Color) Yellow Interpretation Clarity (test code = Interpretation Clarity) Clear Interpretation Glucose (mg/dL) (test code = Interpretation Glucose (mg/dL)) 500 Interpretation Bilirubin (test code = Interpretation Bilirubin) Negative Interpretation Ketone (mg/dL) (test code = Interpretation Ketone (mg/dL)) 80 Interpretation Specific [place] (test code = Interpretation Specific [place]) 1.015 Interpretation Occult Blood (test code = Interpretation Occult Blood) Trace-Intact (or Trace Non-Hemolyzed) Interpretation pH (test code = Interpretation pH) 5 Interpretation Protein (test code = Interpretation Protein) Negative Interpretation Urobilinogen (test code = Interpretation Urobilinogen) 0.2 Interpretation Nitrites (test code = Interpretation Nitrites) Negative Interpretation Leukocytes (test code = Interpretation Leukocytes) [facility] - [id number] 09:20:37* Test Item Value Reference Range Interpretation Comme nts Color Color (test code = Col or Color) yellow Color Appearance (test code = Color Appearance) clear Color Glucose (test code = C olor Glucose) negative Color Bilirubin (test code = Color Bilirubin) negative Color Ketones (test code = C olor Ketones) negative Color Specific [place] (test code = Color Specific [place]) 1.010 Color Blood (test code = Col or Blood) negative Color PH (test code = Color PH) 5.5 Color Protein (test code = C olor Protein) negative Color Urobilinogen (test cod e = Color Urobilinogen) 0.2 Color Nitrites (test code = Color Nitrites) negative Color Leukocytes (test code = Color Leukocytes) negative [facility] in Capillary [id number] 08:44:39* Test Item Value Reference Range Interpretation Comme nts Blood Glucose: mg/dl (test c ode = Blood Glucose: mg/dl) 87 [facility] Consult Notes Date/Time Note Provider [...] daily. 90 tablet 3 blood sugar diagnostic (Noninvasive Medical TechnologiesUCH ULTRA TEST) strip Use to test glucose once a day E11.9 100 Strip 1 lancets (SolarOne SolutionsTOUCH DELICA LANCETS) 30 gauge Misc Use to [...] Left 06/26/2017 Surgeon: Jarred Jara MD; Location: [place] [facility] COLONOSCOPY Left 12/06/2020 Surgeon: Abdelrahman Madden MD; Location: [place] [facility] COLPOSCOPY benign per pt. normal pap since ESOPHAGOGASTRODUODENOSCOPY N/A 06/27/2016 Surgeon: Jarred Jara MD; Location: [place] [facility] ESOPHAGOGASTRODUODENOSCOPY N/A 06/26/2017 Surgeon: Jarred Jara MD; Location: [place] Location ESOPHAGOGASTRODUODENOSCOPY Left 12/06/2020 Surgeon: Abdelrahman Madden MD; Location: [place] [facility] HYSTERECTOMY kept ovaries; dysmenorrhea TRIGGER FINGER RELEASE Left 05/27/2017 Surgeon: Prashant El MD; Location: [place] Location TUBAL LIGATION Family History Problem Relation Age of Onset Stroke Father Hypertension Father Breast Cancer Mother late 50s Hypertension Mother Lung Cancer Mother Uterine Cancer Sister Cancer Maternal Grandfather throat Social History Socioeconomic History Marital status: 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 Currently going to school for criminal [...] of the lung bases. RL: 2601 AFC: 15588 ABDOMEN PELVIS WO CONTRAST Narrative: EXAM: CT [...] Tena MD Urology Resident Pager: please page show operations supervisor using Janalaksh[employer] Associated attestation - Antwan Warner MD - 06/02/2023 9:29 AM CDT I have reviewed Dr. Tena 's note. I agree with the documentation and plan Antwan Warner MD 06/02/2023 9:29 AM [facility] History and Physical Notes Date/Time Note Provider [...] above All questions answered Carlos Gomes MD [facility] 2023-06-12 13:59:14 Patient seen and examined, agree with H&P, no interval changes. Surgeon: Rosey MAZA Date: 06/12/2023 Plan for R sided [facility] today with Dr. Gomes. Guera Hidalgo PGY2 Urology [facility] Associated attestation - Carlos Gomes MD - [...] Position: Pulse: 75 [phone] 62 78 Resp: 18 18 17 18 Temp: 36.6 ?C (97.8 ?F) 36.7 ?C [...] of the lung bases. RL: 2601 AFC: 87139 ABDOMEN PELVIS WO CONTRAST Result Date: 06/01/2023 [...] stent placement day 1. Urine culture with lisa. Otherwise doing well. Albin Nuñez MD Urology Resident Pager: please page show operations supervisor using [employer] T [facility] 2023-06-01 17:23:03 XpertMD History & Physical DATE: [...] by mouth at bedtime. BLOOD SUGAR DIAGNOSTIC (Noninvasive Medical TechnologiesUCH ULTRA TEST) STRIP Use to test glucose [...] tablet by mouth daily with breakfast. LANCETS (Noninvasive Medical TechnologiesUCH DELICA LANCETS) 30 GAUGE MISC Use to [...] Left 12/06/2020 Surgeon: Abdelrahman Madden MD; Location: [place] COLPOSCOPY benign per pt. 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 Currently going to school for criminal [...] BACTERIA Few (A) Negative COMP. METABOLIC PANEL (03158) Collection Time: 06/01/23 11:31 AM Result Value [...] of the lung bases. RL: 2601 AFC: 10539 ABDOMEN PELVIS WO CONTRAST Result Date: 06/01/2023 [...] medications. Discussed the case with: [ ] wireless sales consultant [x ] nursing staff [x ] patient/family [x] ED provider Calvin Nova MD XpertMD This note was created using a voice-recognition guidance director system. Incorrect words, phrases, or punctuation may have been missed during proofreading and need to be interpreted in the context. If an error is discovered when reviewing the document, please contact Dr. Nova directly for clarification. 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 Procedures: Ureteroscopy (CPT 51780) Retrograde pyelogram (CPT 27313 + modifier 26 to include professional component for interpretation) Cystoscopy with right ureteral stent placement (29869) Indications: 3mm right proximal ureteral stone, right [...] for a cystoscope and a 22cm 6fr Armenian double-J ureteral catheter without the string was [...] in good condition. Guera Hidalgo PGY2 Urology [facility] Associated attestation - Carlos Gomes MD - 06/12/2023 7:26 PM CDT I saw and examined the patient on 06/12/2023 and agree with the resident's note as written by Dr Hidalgo. I actively participated in the decision-making process. Please see the resident's note for additional details. I was present for the entire procedure. Carlos Gomes MD [facility] 2023-06-02 13:13:11 FULL OPERATIVE NOTE Date of [...] Procedures: Cystoscopy with right ureteral stent placement (13272) Retrograde pyelogram (CPT 29019 + modifier 26 to include professional component [...] resistance under fluoroscopic guidance. A 22cm 6.0 -Armenian double-J ureteral stent was placed into the [...] culture Primary team to consider antifungal with lisa on recent Ucx Tamsulosin 0.4 mg and Ditropan 10 mg PO daily for stent spasms Provisional plan for Right [facility] 06/13/2023 [place] Carlos Gomes MD [facility] Notes Date/Time Note Provider Source Jones Haines [facility]2025-05-05 13:52:05 Maritza Washington is a 59 year old female. [facility] Pharmacy requesting refill of pts GABAPENTIN 300 mg capsule Please advise. [facility] [id number] [place] [facility] CenterJrmdrv0624-09-30 00:00:00 Jones Haines [facility]2025-03-25 00:00:00 Jones Haines [facility]2025-03-11 00:00:00 Jones Haines [facility]2025-03-05 00:00:00 Jones Haines [facility]2025-02-24 00:00:00 Jones Haines [facility]2024-12-31 10:07:16 Xray result received from [facility] showing Avascular necrosis. Ortho referral placed [facility]2024-12-21 10:20:[address] [facility]. Placed in Providers box. [facility] Skylar BeardAshtabula County Medical CenterLfvxff2643-80-30 15:00:00 Images from the original note were not included. Venipuncture collection performed by clean technique on the right anticubitus. Total of 1 attempts were made. Slight pressure and a bandage/dressing were applied to the site(s). The patient experienced no complications. The following specimens were processed according to instructions and sent to [facility] laboratories per lab order on 02/27/2024 : LT BLUE SST 1 LT GREEN RED LAV PPT DK GREEN (LiHep) DK GREEN (SodH) SIMON DK BLUE (K2) DK BLUE (S) ACD Blood Culture NIPT/NTD [place] [id number] 14:30:00 Addended by: MAGDALENA WISE PA-C on: 02/29/2024 11:21 AM Modules accepted: Orders [place] 634104-11-01 07:30:56 Last Refilled: Disp Refills Start End FADI levothyroxine 75 mcg tablet 90 tablet 1 09/10/2023 -- No Sig: Take 1 tablet by mouth every morning. Sent to pharmacy as: levothyroxine 75 mcg tablet (SYNTHROID) Class: eRX Route: Oral Order: [id number] Date/Time Signed: 09/10/2023 17:29 E-Prescribing Status: Receipt confirmed by pharmacy (09/10/2023 5:29 PM CDT) Notes: Recent Visits Date Type Provider Dept 01/09/24 Office Visit Martha Dangelo FNP [facility] 09/10/23 Office Visit Martha Dangelo FNP [facility] Showing recent visits within past 540 days with a meds authorizing provider and meeting all other requirements Future Appointments Date Type Provider Dept 01/23/24 Appointment Martha Dangelo FNP [facility] Showing future appointments within next 150 days with a meds authorizing provider and meeting all other requirements Road Repairer Visit on 01/09/2024 Component Date Value T3 [...] 01/09/2024 12.1 NRBC/100 WBC 01/09/2024 0.0 NRBC [id number]/09/2024 <0.01 GRAN MAT (NEUT) % 01/09/2024 55.9 IMM GRAN % 01/09/2024 0.30 LYMPH % 01/09/2024 30.7 MONO % 01/09/2024 10.1 EOS % 01/09/2024 1.8 BASO % 01/09/2024 1.2 GRAN MAT x103(ANC) 01/09/2024 3.66 IMM GRAN [id number]/09/2024 <0.03 LYMPH t8204001/09/2024 2.01 MONO v5864801/09/2024 0.66 EOS c8632601/09/2024 0.12 BASO x3271501/09/2024 0.08 (H) URINE CULTURE 01/09/2024 10,000 - 100,000 CFU/mL mixed aerobic organisms - suggests endogenous microbial contamination Road Repairer Visit on 09/10/2023 Component Date Value NA [...] 09/10/2023 11.6 NRBC/100 WBC 09/10/2023 0.0 NRBC h01994 <0.01 GRAN MAT (NEUT) % 09/10/2023 68.6 IMM GRAN % 09/10/2023 0.20 LYMPH % 09/10/2023 19.4 MONO % 09/10/2023 8.2 EOS % 09/10/2023 2.5 BASO % 09/10/2023 1.1 GRAN MAT x103(ANC) 09/10/2023 3.86 IMM GRAN q35407 <0.03 LYMPH y75191 1.09 (L) MONO x47502 0.46 EOS b69108 0.14 BASO k75639 0.06 Admission on 06/12/2023, Discharged on 06/12/2023 [...] 06/04/2023 10.5 NRBC/100 WBC 06/04/2023 0.0 NRBC a64550 <0.01 GRAN MAT (NEUT) % 06/04/2023 66.4 IMM GRAN % 06/04/2023 0.50 LYMPH % 06/04/2023 13.9 MONO % 06/04/2023 14.3 EOS % 06/04/2023 4.4 BASO % 06/04/2023 0.5 GRAN MAT x103(ANC) 06/04/2023 6.19 IMM GRAN f7495006/04/2023 0.05 LYMPH e08415 1.30 (L) MONO p45051 1.34 (H) EOS d23320 0.41 (H) BASO q57815 0.05 APPEARANCE 06/04/2023 Cloudy (A) COLOR 06/04/2023 [...] 06/01/2023 10.6 NRBC/100 WBC 06/01/2023 0.0 NRBC p86555 <0.01 GRAN MAT (NEUT) % 06/01/2023 75.9 IMM GRAN % 06/01/2023 0.30 LYMPH % 06/01/2023 10.6 MONO % 06/01/2023 12.3 EOS % 06/01/2023 0.5 BASO % 06/01/2023 0.4 GRAN MAT x103(ANC) 06/01/2023 9.36 (H) IMM GRAN s18164 0.04 LYMPH a82671 1.30 (L) MONO f33305 1.51 (H) EOS u7026406/01/2023 0.06 BASO w5115706/01/2023 0.05 APPEARANCE 06/01/2023 Cloudy (A) COLOR 06/01/2023 [...] 06/01/2023 39 URINE CULTURE 06/01/2023 40,000 CFU/mL Lisa tropicalis (A) Blood Culture-Aerobic 06/01/2023 No organisms [...] 06/02/2023 10.8 NRBC/100 WBC 06/02/2023 0.0 NRBC z96663 <0.01 GRAN MAT (NEUT) % 06/02/2023 72.3 IMM GRAN % 06/02/2023 0.20 LYMPH % 06/02/2023 10.5 MONO % 06/02/2023 14.3 EOS % 06/02/2023 2.1 BASO % 06/02/2023 0.6 GRAN MAT x103(ANC) 06/02/2023 9.14 (H) IMM GRAN t82642 0.03 LYMPH w87695 1.32 MONO b16038 1.80 (H) EOS s79112 0.26 BASO q8505006/02/2023 0.07 APPEARANCE 06/02/2023 Cloudy (A) COLOR 06/02/2023 [...] 2 (H) URINE CULTURE 06/02/2023 20,000 CFU/mL Lisa tropicalis (A) POCT GLU 06/02/2023 192 (H) [...] 06/03/2023 12.0 NRBC/100 WBC 06/03/2023 0.0 NRBC e1201906/03/2023 <0.01 GRAN MAT (NEUT) % 06/03/2023 83.1 IMM GRAN % 06/03/2023 0.20 LYMPH % 06/03/2023 4.6 MONO % 06/03/2023 11.3 EOS % 06/03/2023 0.5 BASO % 06/03/2023 0.3 GRAN MAT x103(ANC) 06/03/2023 10.53 (H) IMM GRAN l23785 0.03 LYMPH y36428 0.58 (L) MONO u10536 1.43 (H) EOS l13085 0.06 BASO f6512806/03/2023 0.04 POCT GLU 06/03/2023 330 (H) POCT GLU 06/03/2023 198 (H) POCT GLU 06/03/2023 219 (H) POCT GLU 06/03/2023 188 (H) Rhiannon Dimas [facility] HealthFhzojk1855-92-62 16:30:00 Images from the original note were not included. Venipuncture collection performed by clean technique on the left anticubitus. Total of 1 attempts were made. Slight pressure and a bandage/dressing were applied to the site(s). The patient experienced no complications. The following specimens were processed according to instructions and sent to [facility] laboratories per lab order on today: LT BLUE SST 4 RED LAV 1 PPT DK GREEN (LiHep) DK GREEN (SodH) SIMON DK BLUE (K2) DK BLUE (S) ACD Blood Culture NIPT/NTD Patient has been identified by name and was provided with cup, antiseptic towelette, and clean catch instructions. 1 urine specimen(s) sent. Unpreserved Urine Culture 1 Aptima tube Other urine [facility] CenterFqnzzm3772-35-13 10:03:12 Called pt due to scheduled appointment with urgent care at 0920 due to neck pain. As per Dr. Simons, urgent care is limited on what can be done and a scheduled appointment with PCP was made for 1130. No answer. Left voicemail to return call. Keisha Beckman RN 01/09/2024 10:42 AM Keisha Beckman [facility] HealthHfetbt5352-80-83 10:18:24 Please review and sign if appropriate: Last office visit: 09/10/23 Next office visit: not scheduled Requested Prescriptions Pending Prescriptions Disp Refills meloxicam 15 mg tablet 30 tablet 1 Sig: Take 1 tablet by mouth in the morning. Last fill date: 09/10/23 Labs: CREATININE Date Value 09/10/2023 0.88 mg/dL 09/07/2013 0.69 MG/DL CREATININE-Q (mg/dL) Date Value 08/02/2016 0.70 Notes: Costochondritis, acute Lucia Gray Replaced by [facility]2024-07-11 08:13:24 Access Center: [facility] Open Encounter Maintenance Chart Review: Patient was seen in Clinic for her 2 follow up vaccines. Nurse Note: RN closing encounter in [facility] r/t clinical action items completed. Colette Ray RN [facility] Access Center Triage Nurse Colette Ray [facility] HealthKzuqqg4479-46-76 10:27:39 Called pt and asked if she would like her MRX emailed, pt refused and would like it mailed instead. Will have Dr. Thurman sign MRX and will send it out today. Closing encounter. Peyton Elizalde 09/16/2023 10:28 AM Peyton RobertUniversity [facility]als [facility]hu[facility] CenterDshmgz6061-84-27 10:22:22 Outcome Denied 09/15/23 This product is non formulary and not preferred. Preferred products include Accu-Chek blood glucose test strips. -Patient contacted and notified of denial. She will callback when home to report the type of glucometer currently being used. Lucia Gray Replaced by [facility]2024-07-02 10:06:32 Copied from [facility] #[id number]. 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 Pt last communicated with on 07/31 and he stated that he would send her the rx through [employer] on 08/07. The pt has still not received her glasses rx and would like to have it mailed to her address at [address] , [address], [place] [address] . Please contact and advise. Deepthi ThayerAshtabula County Medical CenterIpnogr0391-53-99 11:48:51 PA for Glucoshine Test Strips initiated on 09/15/2023: Diego: [id number] PA Rx #: [id number] Will provide with updates as recd Lucia Gray [place] 824844-06-28 11:12:15 Left Vm for pt Angeline AckermanAshtabula County Medical CenterErbqhd5589-71-74 10:55:04 I can remind her at the follow up apt [facility] CenterCgwdvl3313-29-53 10:26:07 Images from the original note were not included. Lucia Gray LVN You26 minutes ago (9:56 AM) PF Just a lab appt. She said she'd forget to come if it's not scheduled and requested a reminder call for this visit too. Thank you [facility] to schedule a lab appoinment. If patient calls back please help schedule a lab appointment around dec [place] 269654-06-28 09:32:59 Does patient need to come in for office visit or just a lab appointment [place] 269654-06-27 15:22:21 Contact was made with Maritza Washington [...] in 6 weeks. Thank you. Lucia Gray Replaced by [facility]2024-06-26 17:28:40 I sent levothyroxine 75mcg to start daily for pt thyroid. Take first thing in am on empty stomach nothing to eat for 30mins after. Repeat labs in 3 months, in addition we need to do more labs r/t elevated LFTS. [facility] CenterEmicje5561-26-98 10:00:00 Images from the original note were not included. Venipuncture collection performed by clean technique on the left anticubitus. Total of 1 attempts were made. Slight pressure and a bandage/dressing were applied to the site(s). The patient experienced no complications. The following specimens were processed according to instructions and sent to [facility] laboratories per lab order on 09/10/2023 : LT BLUE SST 1 RED LAV 2 PPT DK GREEN (LiHep) DK GREEN (SodH) SIMON DK BLUE (K2) DK BLUE (S) ACD Blood Culture NIPT/NTD Patient has been identified by and name and was provided with cup, antiseptic towelette, and clean catch instructions. 1 urine specimen(s) sent. Unpreserved 1 Urine Culture Aptima tube Other urine [facility] CenterXvridx8184-66-74 18:27:14 LM for pt to return call to [facility] regarding next two rabies vaccine appt dates to insure pt has correct dates in her notes. Pt should RTC for vaccination on 09/09/2023 and 09/16/2023. [place] 037114-06-22 12:48:05 Spoke to pt by phone re: nausea and tingling feet post Rabavert injection #2. Informed pt that nausea is a common side effect. Pt instructed to go to ER for worsening tingling in feet. Pt verbalized understanding. Pt is scheduled for RabAvert injection #3 on 09/09/23. Norah Chery RN 09/06/2023 12:52 PM Norah Chery RNAsht[facility]ula [facility] Medical CenterPoqclu8047-16-74 09:13:06 Maritza Washington is a 58 year [...] connected with in the access center. Holly VegaAshtabula County Medical CenterZmpisr0157-35-00 13:59:07 Notified pt that she may receive her remaining rabies vaccines in [facility]. Yodit Roca [facility] HealthMozkus7311-22-94 13:41:01 Copied from [facility] #[id number]. 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 She is needing her 2nd dose and had her first dose yesterday. Please advise as the pt needs to know before tomorrow & if we don't have the vaccine she wants to know where she can go. Bhanu AdamsT[place]my [place] 037114-06-18 20:44:05 Pt states she has to leave right now. Pt left prior to vitals reassessment and after shot reassessment. Pt given Rx papers and discharge paperwork. Pt left ambulatory by self. [place] 61927-06-18 20:42:59 Patient states "I need to go right now." Unable to get discharge vitals. [place] 61927-06-18 19:33:49 Patient arrived ambulatory to ED c/o a raccoon that attacked her this AM around 0700 at home. Patient has scratch kennedy to mid abd. Requesting rabies vaccine. Went to ER this AM and got pain medication and TDAP. Yvette Hodges RNUT - Lbadte1800-11-30 19:23:00 [facility] Emergency Department Note Patient Name: Maritza Washington Date of : 1965 58 year old female [id number] Primary Care Physician: Davy Manley Patient Escorted [...] her lower abdomen. History provided by: Patient customer care assistant used: No Past Medical History/Immunizations: Past Medical [...] Right 06/12/2023 Surgeon: Carlos Gomes MD; [facility] Review of Systems: Review of [...] MD -- 09/02/231932 First Provider Evaluation JOSE GLEASNO MD -- ED COURSE Patient received the appropriate treatment, she will DC Home with instructions to follow up at the [facility] for her following vaccinations Diagnosis/Impression [...] which have NOT CHANGED BLOOD SUGAR DIAGNOSTIC (SolarOne SolutionsTOUCH ULTRA TEST) STRIP Use to test glucose once a day E11.9 GLIPIZIDE 10 MG TABLET Take 1 tablet by mouth in the morning. IBUPROFEN 800 MG TABLET Take 1 tablet by mouth every 6 (six) hours as needed for Pain (scale 4-6) for up to 30 doses. LANCETS (SolarOne SolutionsTOUCH DELICA LANCETS) 30 GAUGE MISC Use to [...] Gleason MD 09/02/231946 Jose Gleason MD 09/02/232009 T [facility] - Ysiczv9812-18-89 15:48:51 Spoke to pt informed her: Please inform patient that XRAY is negative for any acute fracture, they see a old fracture to left clavicle and an age indeterminate fracture to left 6th rib, meaning likely old injury. Please have her follow up with PCP [facility] CenterQsaaag2683-14-77 15:34:17 Maritza Washington is a 58 year old female patient returning missed call for results. Would like a call back to go over them. Please advise. Shane Rodriguez [facility]2024-05-21 19:09:00 [facility] ([facility] EMERGENCY PROVIDER REPORT REPORT#:[id number] REPORT STATUS: Signed DATE:08/05/23 TIME: 1908 PATIENT: MARITZA WASHINGTON UNIT #: [id number] ROOM/BED: AGE: 58 SEX: F PCP PHYS: [...] Referrals Provider Referral: Candace Valle MD Address: [address] [place] [address] at 7937 RPT #:[id number] END OF REPORTKRSDF0716-80-45 16:15:33 I will print and transmit rx on Friday first thing. I will MyChart Mrs. Washington to let her know. Thanks, Dr. Thurman [facility] - Ciniun5708-77-40 14:06:00 Copied from [facility] #[id number]. 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 Pt missed placed their rx and need a new one emailed to them. Please contact and advise. Deepthi ThayerAshtabula County Medical CenterRcuxqo5166-83-68 13:55:32 Procedure was cancelled. Karyna Martínez RNAshtabula County Medical CenterJhedub9889-25-65 13:04:44 LVM for stent removal appointment with Dr. Gomes for 07/[address] Gomes ok to OB Latrice Sow [facility]2024-04-22 11:01:24 Friday Thanks T [facility] CenterDuaclv1314-42-58 10:47:24 Please advise which date to OB for Stent removal to offer at [facility] 07/10 at 3pm Mon 07/20 at 3pm 07/24 at 1pm T [facility] CenterZbnauj5918-56-91 10:47:06 Workspacet message sent of Dr. Gomes response. Attempted to reach the patient for a second time and LVM. T Lennie Chau Replaced by [facility]2024-04-22 09:56:13 Please offer RTC and removal stent and no stone seen, could be concealed by stent Stent needs to be removed given that it seems encrusted, even after removal of stent, she UTI/ sepsis may recur due to ureteral stricture and HN. Chronic pain secondary to multiple conditions Patient can also consider second opinion with another provider at [facility] or outside Please ask patient to RTC with her sister/ family member Thanks T [facility] CenterYehvzv3699-07-36 09:40:03 Appt canceled and LVM for patient to follow up with Dr. Gomes since the patient does not want to be seen by Dr. Florez. Message routed to Dr. Gomes for notification [facility] CenterTzkmyz2274-70-67 09:27:58 Copied from [facility] #[id number]. 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 Florez. Please cancel per pts request and advise. PH: Sania Baer [facility]2024-04-10 16:33:44 Spoke with patient and gave MEDIA MANAGER comments. Patient verbalized understanding. Next procedure date is not until 07/07/2023. Patient requesting sooner appt and requesting to speak with Dr. Florez about "the state" of her kidneys. Lennie Chau Replaced by [facility]2024-04-10 16:14:53 Copied from [facility] #[id number]. 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 Please f/u Work Phone Not on file. Tiffany ValerioUpper Valley Medical CenterWqqhqk2709-02-56 15:48:44 LVM to call back regarding CT results. T [facility] CenterKyxkit8354-16-52 15:46:52 Spoke with patient and notified her that her surgery was canceled and that we will follow up after her CT is resulted. Patient verbalized understanding. Lennie Chau Replaced by [facility]2024-04-05 14:43:38 Copied from [facility] #[id number]. 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 [phone] (home) Bethany PadillaAshtabula County Medical CenterOgwbmy2067-13-04 14:24:19 Call patient, regarding her concerns, Patient did not answer,left voicemail for patient to return call here at the clinic. TANMAY WALSH [facility] UROLOGY ONCOLOGY [address] [place], [place] [address] P [phone]/F [phone] Con Walsh [facility] CenterQffjxu4151-92-89 13:04:14 Copied from [facility] #[id number]. 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 Advised he is in surgery today. He is aware of her request [phone] (home) [facility] CenterTlqdaz7837-69-60 13:01:08 Copied from [facility] #[id number]. 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 Advised he is in surgery today. He is aware of her request [phone] (home) Bethany PadillaAshtabula County Medical CenterBqhcwc6042-81-33 16:13:26 MD aware and placed CT orders. Patient aware and was transferred to radiology to schedule. Patient is requesting a call from MD today if possible to go over surgery and what to expect. Lennie Chau Replaced by [facility]2024-04-04 11:26:52 Copied from [facility] #[id number]. 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 Maritza has a concern regarding her kidney that has possibly doubled in size. Please f/u Work Phone Not on file. Tiffany ValerioUpper Valley Medical CenterYbswuy1295-10-34 11:25:53 Copied from [facility] #[id number]. 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 Maritza has a concern regarding her kidney that has possibly doubled in size [facility] Xeviet9779-05-30 09:46:55 Patient would like more information on upcoming [facility] procedure and would like to get another CT A/P done before the surgery on Friday. Please advise. [place]75744-04-04 09:28:23 LVM for patient to call back regarding request [place] 775744-04-04 08:24:24 Maritza Washington is a 58 year old female patient calling to speak with clinic regarding questions about surgery and wanting a CT prior to surgery. Please call [phone] [facility] Arlyn [facility]Mem[facility] HospitalModfal5419-63-21 16:15:00 Addended by: MIKAYLA FLOREZ on: 06/19/2023 04:12 PM Modules accepted: Orders [place] 775744-04-02 15:24:40 Pain is most likely related to stent spasms rather than ureteral stone, I added Gabapentin in addition to regular OTC analgesia , Tamsulosin and Ditropan I expect pain to improve with the above combination [facility]2024-04-02 14:12:35 Spoke to patient,and she stated that she is still having pain( pain level is 5). Patient states that pain medication that was given at discharged is not helping with her pain.Patient is not having any fever or chill. She is increasing her water intake. Con GROVESGrant HospitalMhqokk1641-31-48 12:07:23 Pt requesting to speak to nurse regarding pain due to stone. Please F/u Edwin CabralAshtabula County Medical CenterGxacly7708-78-90 17:42:00 Regardinyo female- message from doc ----- [...] he messaged in the encounter Pia Pitt RNAsht[facility] Medical CenterAlpuwc1451-12-51 17:42:00 Images from the original note were [...] pain medications Protocols used: Post-Op Symptoms and Dajodgmjt-UAGYW-DA [facility]2024-03-29 16:02:30 Mrs Washington Thank you for your [...] concerns or questions Thanks Carlos grant MD [facility] CenterLmhpcf2003-75-75 14:11:03 Patient had procedure yesterday. Will close this encounter. A separate encounter has been sent to provider. Azeb Pierce RN Azeb Jc RNAshtabula County Medical CenterOudjnu6527-03-13 14:01:12 Returned patient's call. Patient stated that [...] Will route. Azeb Pierce RN Azeb Jc RNINSCRIPTION HOUSE HEALTH [facility]ENTER - Ojntna2574-79-30 13:23:44 Maritza Washington is a 58 year old female Pt calling requesting update [phone] (home) Jf Mari [facility] CenterUfymia6011-08-64 09:12:12 Copied from [facility] #[id number]. 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 Gomes staff or nurse due to pain from kidney stones. 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 PH:[phone] Please advise Sania SeeUniversity [facility] Diyabw8757-53-53 16:15:17 Copied from CRM #[id number]. 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 Please expedite f/u Work Phone Not on file. Tiffany [facility] Ogzhxa2382-66-02 10:59:55 Copied from CRM #[id number]. 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 Pt also would like to know about the procedure date. She thought it was going to be 06/12 Please call pt Work Phone Not on file. Devora Hodges [facility] Yzddqg7048-74-59 10:42:20 Patient was identified with name and [...] between 1 pm and 4 pm. [address] DOS 06-12-23 was discussed with patient. Patient v/u. [facility]2024-03-21 08:51:22 Call patient to follow up with he symptoms, Patient seem upset because she stated that she was expecting for a call back yesterday. He stated she went back to the ER and feeling better now. With no pain,fever, or chill. T Con Walsh MAAshtabula County Medical CenterAbcvua7650-78-39 22:21:42 Pt discharged to home, pt given [...] in no apparent distress. T Maritza Macias RNAshtabula County Medical CenterRuagzo6324-97-40 21:23:44 Maritza Washington is a 58 year old female presenting to the ER after spiking fever at home along with elevated HR and HTN. Patient reports being discharged from the hospital yesterday in which she had a stent put in for a kidney stone. A&Ox4, VSS, denies SOB, N/V, dizziness, [place]. Respirations unlabored, equal chest rise and fall noted. [facility]2024-03-20 17:14:48 Maritza Washington is a 58 year old female Subjective: Pt ambulatory into triage with c/o fever, HTN, and elevated HR starting last night. Pt reports that she was discharged from hospital yesterday after having stent placed for kidney stone. Pt denies chest pain, SOB, cough, n/v/d. Objective: Pt is alert and oriented x4. Respirations even and unlabored. NAD. Eddi Mckeon RNINSCRIPTION HOUSE HEALTH CENTER - Oemmok6699-53-27 13:06:54 TRANSITIONAL CARE MANAGEMENT ASSESSMENT 06/04/2023 Maritza Washington [id number] Maritza Washington is a 58 year old /White female was admitted on 06/01/23 to [facility] [place] [address]. She was discharged on 06/03/23 with discharge disposition of HR- Routine Discharge. Admitting Physician: Calvin Nova Discharge Diagnosis: Pyelonephritis KRISTOPHER (acute kidney injury) Nephrolithiasis Fatigue Anemia Elevated LFTs Linked Episodes Type: Episode: Status: Noted: Resolved: Last update: Updated by: TRANSITION OF CARE TCM Active 06/03/2023 06/04/2023 1:01 PM Neo Farrell RN Comments: TCM Ppj-wyfd-ag-face outreach documentation: Discharge Assessment Chart Assessed: 06/04/23 [...] with the names or descriptions of any fjyb-wxc-uhztrbm or supplements you are currently taking?: Yes [...] Phone 07/10/2023 1:40 PM Bob Min MD [facility] [phone] Neo Farrell [facility] HealthBaooej6601-80-12 10:10:45 Copied from [facility] #[id number]. 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 was currently released from the hospital on yesterday mention since she has been home twice she has been running a fever of 101 and is having right side pain Carlie CliffordAshtabula County Medical CenterTttwet4147-76-95 16:09:02 Problem: Discharge Planning Goal: Adequate for [...] Osullivan RN Outcome: Progressing as expected Josie Ousllivan [facility] HealthRmnacg4505-99-07 13:35:45 Problem: Discharge Planning Goal: Adequate for discharge Outcome: Progressing as expected Goal: Effective communication Outcome: Progressing as expected Problem: Pain Goal: Control of pain at or below patient's documented comfort goal Outcome: Progressing as expected Goal: Reduction in pain sensation Outcome: Progressing as expected Problem: Infection Risk Goal: Absence of infection Outcome: Progressing as expected [facility] CenterYncane3597-43-46 01:55:35 Problem: Discharge Planning Goal: Adequate for discharge Outcome: Progressing as expected Goal: Effective communication Outcome: Progressing as expected Problem: Pain Goal: Control of pain at or below patient's documented comfort goal Outcome: Progressing as expected Goal: Reduction in pain sensation Outcome: Progressing as expected Problem: Infection Risk Goal: Absence of infection Outcome: Progressing as expected Elsy Chaudhry [facility] HealthOyblwn5888-95-64 15:38:16 Problem: Discharge Planning Goal: Adequate for discharge Outcome: Progressing as expected Goal: Effective communication Outcome: Progressing as expected Problem: Pain Goal: Control of pain at or below patient's documented comfort goal Outcome: Progressing as expected Goal: Reduction in pain sensation Outcome: Progressing as expected Problem: Infection Risk Goal: Absence of infection Outcome: Progressing as expected Sruthi Larsen [facility] HealthHzdial5009-39-49 02:17:53 Problem: Discharge Planning Goal: Adequate for discharge Outcome: Progressing as expected Goal: Effective communication Outcome: Progressing as expected Problem: Pain Goal: Control of pain at or below patient's documented comfort goal Outcome: Progressing as expected Goal: Reduction in pain sensation Outcome: Progressing as expected Problem: Infection Risk Goal: Absence of infection Outcome: Progressing as expected [place] [address]-03-17 19:43:14 Report called to for pt transport to the floor Parker Narayanan [place] 209954-03-17 18:07:04 Pt given meal tray [place] [address]-03-17 18:04:08 Pt meal tray ordered [place] [address]-03-17 16:40:16 MD at bedside [place] [address]-03-17 16:23:22 Pt requesting pain medications at this time, Admitting MD aware, orders to follow. T Kellee Trejo RNTammy [place] 037114-03-17 15:41:27 MD at bedside [place] [address]-03-17 13:26:43 Pt ambulatory to the bathroom T [place] [address]-03-17 11:16:30 Pt ambulatory to bathroom to provide urine specimen at this time. T [facility] - Mgdnln4579-81-58 11:12:44 Maritaz Washington is a 58 year old female presenting to the ED with c/o right sided flank pain since Friday. Reports she was diagnosed with kidney stones at [facility] ED. Endorses burning with urination. Denies fevers. AOX4, NAD, VSS Took Tramadol this morning. 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 Mckenzie s/p colon resection 2009. repeat scope 03/2013 was neg and following up in 1 year • H/O: hysterectomy 2004 • History of colonoscopy 2016 clean; • History of small bowel obstruction 2014 medically managed • Hx of cholecystectomy 1997 • Pap smear abnormality of cervix 20+ years ago Tetanus received in last 5 years: Unknown Allergies: Allergies Allergen Reactions • Sulfa (Sulfonamide Antibiotics) Nausea and/or Vomiting • Vicodin [Hydrocodone-Acetaminophen] Itching Past Social History: Tobacco Use Every Day; 0.50 packs/day for 30.00 years; Types: Cigarettes Smokeless Tobacco: Never used smokeless tobacco. Alcohol Use No. Drug Use No. Sexual Activity Sexually active; Partners: Male; Control/Protection: Surgical. Comments: Past Surgical History: Past Surgical History: Procedure Laterality Date • CHOLECYSTECTOMY • COLON SURGERY 2009 h/o colon cancer • COLONOSCOPY Left 06/26/2017 Surgeon: Jarred Jara MD; Location: [facility] Location • COLONOSCOPY Left 12/06/2020 Surgeon: Abdelrahman Madden MD; Location: [facility] Location • COLPOSCOPY benign per pt. normal pap since • ESOPHAGOGASTRODUODENOSCOPY N/A 06/27/2016 Surgeon: Jarred Jara MD; Location: [facility] Location • ESOPHAGOGASTRODUODENOSCOPY N/A 06/26/2017 Surgeon: Jarred Jara MD; Location: [facility] Location • ESOPHAGOGASTRODUODENOSCOPY Left 12/06/2020 Surgeon: Abdelrahman Madden MD; Location: [facility] Location • HYSTERECTOMY kept ovaries; dysmenorrhea • TRIGGER FINGER RELEASE Left 05/27/2017 Surgeon: Prashant El MD; Location: [facility] Location • TUBAL LIGATION Review of Systems: Review of [...] of the lung bases. RL: 2601 AFC: 96818 ABDOMEN PELVIS WO CONTRAST Final Result EXAM: [...] BACTERIA Few (*) Negative COMP. METABOLIC PANEL (85592) - Abnormal NA 136 135 - 145 [...] and Treatments: Orders Placed This Encounter Procedures • CT ABDOMEN PELVIS WO CONTRAST • XR CHEST 2 VW • CBC WITH DIFF • URINALYSIS • COMP. METABOLIC PANEL (47044) • LIPASE • URINE CULTURE • Glycosylated Hemoglobin (A1C) • Lipid Panel (Total Cholesterol, Triglycerides, HDL) - Fasting • Thyroid Stimulating Hormone (TSH) POCT Glucose (Age >30 Days) • BLOOD CULTURE SCREEN • BLOOD CULTURE SCREEN • Urinalysis • Phosphorus • Magnesium • Basic Metabolic Panel (NA, K, CL, CO2, GLUCOSE, BUN, CREATININE, CA) • Basic Metabolic Panel (NA, K, CL, CO2, GLUCOSE, BUN, CREATININE, CA) • Basic Metabolic Panel (NA, K, CL, CO2, GLUCOSE, BUN, CREATININE, CA) • Cbc with Diff • Cbc with Diff • Cbc with Diff • POCT GLUCOSE (AUTOMATED) • Consult Urology Orders Placed This Encounter Medications • ketorolac (TORADOL) injection 15 mg • ondansetron (ZOFRAN (PF)) injection 4 mg • NaCl 0.9% (NS) bolus infusion 1,000 mL • cefTRIAXone (ROCEPHIN) 1,000 mg in NaCl 0.9% (NS) 100 mL MINI-BAG • atorvastatin (LIPITOR) tablet 10 mg • buPROPion SR (WELLBUTRIN SR) tablet 150 mg • gabapentin (NEURONTIN) capsule 300 mg • pantoprazole (PROTONIX) EC tablet 40 mg • DISCONTD: acetaminophen (TYLENOL) tablet 650 mg • HYDROcodone-acetaminophen (NORCO 5) 5-325 mg tablet 1 tablet • sennosides-docusate sodium (SENOKOT-S) 8.6-50 mg per tablet 1 tablet • ondansetron (ZOFRAN (PF)) injection 4 mg • guaiFENesin (FENESIN IR) tablet 200 mg • enoxaparin (LOVENOX) injection 40 mg • dextrose 50 % in water (D50W) injection 25 mL • glucagon (GLUCAGEN DIAGNOSTIC KIT) injection 1 mg • Sliding Scale Insulin - Lispro (HumaLOG) • DISCONTD: lactated ringers IV infusion 1,000 mL • cefTRIAXone (ROCEPHIN) 1,000 mg in NaCl 0.9% (NS) 100 mL MINI-BAG • morpHINE (4 mg/mL) injection 4 mg • acetaminophen (TYLENOL) tablet 650 mg • DISCONTD: ketorolac (TORADOL) injection 15 mg • tamsulosin (FLOMAX) capsule 0.4 mg • methocarbamoL (ROBAXIN) tablet 500 mg • lactated ringers IV infusion 1,000 mL First [...] sufficient AdmissionCare documentation entered by: Rc Peng [facility] [employer], 27th edition, Copyright ? 2022 [facility] [employer] [facility] All Rights Reserved. [id number]:58:31-05:00 ED COURSE Diagnosis/Impression as of 06/01/23 1842 Acute abdominal pain Acute pyelonephritis Right ureteral [...] by mouth at bedtime. BLOOD SUGAR DIAGNOSTIC ([employer] ULTRA TEST) STRIP Use to test glucose [...] these medications No medications on file Follow-up: [facility] CenterFxnhdd9898-06-26 11:10:00 Images from the original note were not included. I have no personal relationship with this patient nor did I see or evaluate them. My only involvement in their care was to review culture or radiology results and contact them if changes to medication or further imaging or evaluation is warranted. Procedure Component Value Units Date/Time URINE CULTURE [[id number]] (Abnormal) Collected: 06/01/23 1131 Lab Status: Final result Specimen: URINE, CLEAN CATCH Updated: 06/02/23 1300 URINE CULTURE 40,000 CFU/mL Lisa tropicalis Abnormal Pt is currently admitted and being managed by the hospitalist. No further intervention needed at this time. Nicolle Sultana, MSN, LANDING GEAR MECHANIC,FUSION OPERATOR-C Irasema Sultana FNP 06/03/23 0801 Associated attestation - Bradly Stanton DO - 06/03/2023 8:13 AM CDT I was available for consultation at all times during the patient encounter and present in the Emergency Department providing general supervision. However, I did not see or evaluate the patient. Patient seen and evaluated by JUANITA. [facility] Emergency PhysicianAshtabula County Medical CenterCgixhb1648-85-16 11:10:00 AdmissionCare Guideline: Renal Colic / Kidney [...] sufficient AdmissionCare documentation entered by: Rc Peng [facility], 27th edition, Copyright ? 2022 [facility] [employer] [facility] All Rights Reserved. [id number]:58:31-05:00 [facility] CenterVrekad6179-38-60 03:08:00 [facility] ([facility]) EMERGENCY PROVIDER REPORT REPORT#:[id number] REPORT STATUS: Signed DATE:05/30/23 TIME: 307 PATIENT: MARITZA WASHINGTON UNIT #: [id number] ROOM/BED: AGE: 58 SEX: F PCP PHYS: [...] Room air 05/29 025 Temp 36.9 05/29 025 Pulse 89 05/29 0254 Resp 17 05/294 Last Documented: Result Date Time Pulse Ox 100 05/29 0443 B/P 165/85 05/29 0443 B/P Mean 111 05/29 0443 O2 Delivery Room air 05/29 0443 Pulse 80 05/29 0443 Resp 17 05/29 442 Temp 36.9 05/29 0254 Review of Vital [...] (5.0 - 8.0) 7.0 POC Ur Specif [place] (1.001 - 1.035) 1.015 POC Urine Protein [...] Admin Ceftriaxone Sodium 1,000 MG X1ED STA 05/30 435 DC 05/29 Sodium Chloride 10 ML IV 03/15 0438 0439 Central Nervous System Agents Sig/Tee [...] 05/29 0308 DC 05/29 IV 05/29 0309 0312 Patient Discharge Departure Vital Signs/Condition Vital Signs First Documented: Result Date Time Pulse Ox 98 05/29 0254 B/P 180/89 05/29 0254 B/P Mean 119 05/29 0254 O2 Delivery Room air 05/29 0254 Temp 36.9 05/29 0254 Pulse 89 05/29 0254 Resp 17 05/29 0254 Last Documented: Result Date Time Pulse Ox 100 05/29 0443 B/P 165/85 05/29 0443 B/P Mean 111 05/29 0443 O2 Delivery Room air 05/29 0443 Pulse 80 / 0443 Resp 17 05/29 0443 Temp 36.9 [...] Follow-Up: 1 Week Notes: urologist Address: [address] [place] [address] Provider Referral: Jarred Cuevas MD Follow-Up: 1 Week Notes: urologist Address: [address] [place] [address] Departure Forms LARRY PCP LIST at 2119 RPT #:[id number] END OF REPORTHCACL
[2024-08-03 15:08] LABS: Absolute Basophils 0.1 K/uL (0-0.5); Absolute Eosinophils 0.1 K/uL (0-0.5); Absolute Monocytes 0.6 K/uL (0.1-1.3); Absolute Neutrophil 3.6 K/uL (1.8-8.0); Eosinophils % 2.2 % (0-4.4); Hematocrit 37.2 % (36.0-45.0); Hemoglobin 13.1 g/dL (12.0-15.0); Lymphocytes % 30.9 % (15.3-44.8); MCH 32.3 pg (27.0-35.0); MCHC 35.1 g/dL (32.0-36.0); MCV 92.1 fL (80-100); MPV 8.3 fL (7.6-11.3); Monocytes % 9.4 % (3.3-12.3); Neutrophils % 56.5 % (41.7-73.7); Nucleated Red Blood Cells % 0.1 % (0-0); Platelets 267 thou/uL (152-406); RBC Red Blood Cell Count 4.04 M/uL (3.86-4.86); Red Cell Distribution Width 14.2 % (12.1-15.2)
[2024-08-03 15:18] LABS: Specific Gravity 1.018 (1.005-1.030); Sqamous Epithelial <5 /HPF (None Seen); Urine Bacteria None Seen /HPF (<20); Urine Bilirubin NEGATIVE (Negative); Urine Blood 1+ (Negative); Urine Clarity Extremely Turbid (Clear); Urine Color Yellow (Yellow); Urine Crystals Unidentified Few /HPF (None Seen); Urine Culture Reflex Order REFLEXED; Urine Glucose NEGATIVE (Negative); Urine Ketones NEGATIVE (Negative); Urine Microscopic Reflex YN ORDER UMIC; Urine Nitrite NEGATIVE (Negative); Urine Protein 2+ (Negative); Urine Urobilinogen Normal (Normal); Urine WBC >50 /HPF (<5); Urine WBC Clump Occasional /HPF (None Seen); Urine Yeast (Budding) Occasional /HPF (None Seen)
[2024-08-03] MEDS ORDERED: NA CHLORIDE 0.9% 1,000 ML ONE (15:22)
[2024-08-03] MEDS ORDERED: KETOROLAC 30 MG/ML INJ ONE (15:22)
[2024-08-03 15:25] LABS: Albumin 3.6 g/dL (3.4-5.0); Anion Gap 11.3 mEq/L (5.0-15.0); Bilirubin Total 0.5 mg/dL (0.2-1.0); Globulin 3.6 g/dL (2.3-3.5); Potassium 4.3 mEq/L (3.5-5.1); Protein, Total 7.2 g/dL (6.4-8.2)
--- NOTE | 2024-08-03 17:26 | RAD REPORT ---
EXAMINATION: CT Abdomen Pelvis W Contrast CLINICAL INDICATION: Female, 59 years old. ABD PAIN TECHNIQUE: CT abdomen and pelvis was performed, after the administration of IV contrast, as per [facility] protocol. Axial, sagittal and coronal reconstructions were obtained. One or more of the following dose reduction techniques were used: Automated exposure control, adjustment of the mA and k V according to patient size, and iterative reconstruction. Unless otherwise specified, incidental findings do not require dedicated imaging follow-up. COMPARISON: 02/23/2024 FINDINGS: LOWER CHEST: The visualized lung bases are clear. LIVER: Normal in size and contour. No focal lesion. BILIARY SYSTEM: Status post cholecystectomy. SPLEEN: Normal size. No focal lesion. PANCREAS: No mass, ductal dilation, or elizabet-pancreatic fluid. ADRENALS: Normal; no mass. KIDNEYS: Punctate nonobstructing calculi, measuring 2 to 3 mm at the right upper pole and left lower pole. Normal size and contour. Subcentimeter cortical hypoattenuating lesions bilaterally, could represent small cysts, although difficult to characterize given small size. No hydronephrosis. Interv al resolution of right hydroureteronephrosis seen on the prior exam URINARY BLADDER: Diffuse wall thickening and urothelial hyperenhancement. Decompression limits evalua tion.. GASTROINTESTINAL TRACT: No evidence of free air, significant intra-abdominal free fluid, bowel obstru ction or abscess. Sequelae of distal small bowel partial resection. APPENDIX: Normal appendix. LYMPH NODES: No lymphadenopathy. MUSCULOSKELETAL: No acute or suspicious osseous abnormality. ADDITIONAL FINDINGS: None. IMPRESSION: Diffuse bladder wall thickening with urothelial enhancement, concerning for infectious or inflammator y cystitis. Nonobstructing tiny bilateral renal calculi not exceeding 3 mm.
[2024-08-03] MEDS ORDERED: HYDROCODONE/APAP 5/325 MG TAB ONE (17:35)
--- NOTE | 2024-08-03 17:37 | ER ---
Nurse's Notes [facility] Name: Maritza Washington Age: 59 yrs Sex: Female : 1965 Arrival Date: 08/03/2024 Time: 13:56 Bed 11 Private MD: Diagnosis: Acute cystitis Presentation: 08/03 14:38 Chief complaint: Patient states: UTI SYMPTOMS WITH NAUSEA X 2 WEEKS. WENT TO PCP db STARTED ABX NOT HELPING. SYMPTOMS WORSE. LOWER ABD PAIN. Coronavirus screen: Client denies travel out of the [place] in the last 14 days. At this time, the client does not indicate any symptoms associated with coronavirus-19. Ebola Screen: Patient negative for fever greater than or equal to 101.5 degrees Fahrenheit, and additional compatible Ebola Virus Disease symptoms Patient denies exposure to infectious person. Patient denies travel to an Ebola-affected area in the 21 days before illness onset. No symptoms or risks identified at this time. Initial Sepsis Screen: Does the patient meet any 2 criteria? No. Patient's initial sepsis screen is negative. Does the patient have a suspected source of infection? No. Patient's initial sepsis screen is negative. Risk Assessment: Do you want to hurt yourself or someone else? Patient reports no desire to harm self or others. Onset of symptoms was August 03, 2024. 14:38 Method Of Arrival: Ambulatory db 14:38 Acuity: PAYAM 3 db Triage Assessment: 14:39 General: Appears in no apparent distress. comfortable, Behavior is calm, cooperative. db Pain: Complains of pain in abdomen and pelvis. Neuro: Level of Consciousness is awake, alert, obeys commands, Oriented to person, place, time, situation. GI: Reports lower abdominal pain, nausea. : Reports burning with urination. Historical: - Allergies: 14:39 Sulfa (Sulfonamide Antibiotics); db 14:39 Vicodin; db - PMHx: 14:39 Colorectal CA (remission); diabetes mellitus; Hypertensive disorder; Hypothyroidism; db - PSHx: 14:39 colon resection; Cholecystectomy; db - Immunization history:: Adult Immunizations unknown. - Infectious Disease History:: Denies. - Social history:: Smoking status: Patient reports the use of cigarette tobacco products, smokes one-half pack cigarettes per day. Screenin:33 Abuse screen: Denies threats or abuse. Denies injuries from another. Nutritional ss screening: No deficits noted. Tuberculosis screening: Never had TB. 17:54 [facility] ED Fall Risk Assessment (Adult) History of falling in the last 3 months, ss including since admission No falls in past 3 months (0 pts) Confusion or Disorientation No (0 pts) Intoxicated or Sedated No (0 pts) Impaired Gait No (0 pts) Mobility Assist Device Used No (0 pt) Altered Elimination No (0 pt) Score/Fall Risk Level 0 - 2 = Low Risk Oriented to surroundings, Maintained a safe environment. Assessment: 15:30 General: Appears in no apparent distress. comfortable, Behavior is calm, cooperative. ss Pain: Complains of pain in abdomen and suprapubic area Quality of pain is described as aching, tender. Neuro: Level of Consciousness is awake, alert, obeys commands, Oriented to person, place, time, situation, Speech is normal. Respiratory: Airway is patent Respiratory effort is even, unlabored, Respiratory pattern is regular, symmetrical. : Reports burning with urination. EENT: Oral mucosa is moist. Derm: Skin is intact, is healthy with good turgor, Skin is dry, Skin is pink, warm \T\ dry. normal. 15:33 Reassessment: Pt to CT now. ss 17:54 Reassessment: Pt awaiting ride to get here to take her home. Pt reports her allergy to ss Vicodin is is mild facial itching. Pt states ok to take Palisades. LINETTE Alcazar notified. Vital Signs: 14:38 BP 97 / 69; Pulse 79; Resp 16; Temp 98.1; Pulse Ox 96% ; Weight 56.7 kg; Height 4 ft. db 11 in. ; 14:38 Body Mass Index 25.25 (56.70 kg, 149.86 cm) db ED Course: 14:05 Patient arrived in ED. gl 14:09 In[facility]var[facility]C [facility]. kb 14:09 Luis Acuna MD is Attending Physician. kb 14:39 Triage completed. db 14:39 Arm band placed on Patient placed in waiting room. db 15:02 Initial lab(s) drawn, by me, sent to lab. Urine collected: clean catch specimen, tm3 cloudy. Inserted saline lock: 22 gauge in right antecubital area, using aseptic technique. 15:27 Orquidea Lindquist, RN is Primary Nurse. ss 15:33 Patient has correct armband on for positive identification. Bed in low position. ss 15:40 CT Abd/Pelvis - IV Contrast Only In Process Unspecified. EDMS 17:54 No provider procedures requiring assistance completed. IV discontinued, intact, ss bleeding controlled, No redness/swelling at site. Pressure dressing applied. Administered Medications: 15:33 Drug: Ketorolac IVP 15 mg IVP once Route: IVP; Site: right antecubital; ss 17:38 Follow up: Response: No adverse reaction; Pain is decreased ss 15:33 Drug: NS 0.9% IV 1000 ml IV at 1000 ml once; to be given as a bolus over 60 minutes ss Route: IV; Rate: 1000 ml; Site: right antecubital; 17:38 Follow up: IV Status: Completed infusion; IV Intake: 1000ml ss 17:43 Drug: Amoxicillin-Clavulanate PO 875 mg PO once Route: PO; ss 17:57 Follow up: Response: No adverse reaction; Medication Administered at Departure ss 17:43 Drug: Palisades PO 5 mg-325 mg 1 tabs PO once Route: PO; ss 17:57 Follow up: Response: No adverse reaction; Medication Administered at Departure ss Medication: 15:33 VIS not applicable for this client. ss Intake: 17:38 IV: 1000ml; Total: 1000ml. ss Outcome: 17:37 Discharge ordered by MD. kb 17:54 Discharged to home ambulatory, ss 17:54 Condition: good 17:54 Discharge instructions given to patient, Instructed on discharge instructions, follow up and referral plans. medication usage, Demonstrated understanding of instructions, follow-up care, medications, Prescriptions given X 1, 18:00 Patient left the ED. ss Signatures: Dispatcher [employer] EDMS Inge Echevarria, PRODUCTION CONTROL COORDINATING CLERK-C PRODUCTION CONTROL COORDINATING CLERK-Ckb Nael Spence tm3 Orquidea Lindquist, RN RN Anali Lenz RN RN db Sravani Blair, Reg Reg gl
--- NOTE | 2024-08-03 17:37 | EDPHYS ---
Physician Documentation [facility] Name: Maritza Washington Age: 59 yrs Sex: Female : 1965 Arrival Date: 08/03/2024 Time: 13:56 Bed 11 Private MD: ED Physician Luis Acuna HPI: 08/03 14:23 This 59 yrs old Female presents to ER via Unassigned with complaints of Urinary Problem.kb 14:23 Pt is a 59 year old female who presents for dysuria, urinary frequency, nausea and kb suprapubic pain that started over a week ago. States she went to her PCP last week and was given cipro but it hasn't helped. Denies fever, vomiting, diarrhea.. Historical: - Allergies: 14:39 Sulfa (Sulfonamide Antibiotics); db 14:39 Vicodin; db - PMHx: 14:39 Colorectal CA (remission); diabetes mellitus; Hypertensive disorder; Hypothyroidism; db - PSHx: 14:39 colon resection; Cholecystectomy; db - Immunization history:: Adult Immunizations unknown. - Infectious Disease History:: Denies. - Social history:: Smoking status: Patient reports the use of cigarette tobacco products, smokes one-half pack cigarettes per day. ROS: 14:22 Constitutional: As per HPI kb Exam: 14:22 Constitutional: This is a well developed, well nourished patient who is awake, alert, kb and in no acute distress. Head/Face: Normocephalic, atraumatic. ENT: Moist Mucous membranes Cardiovascular: Regular rate Respiratory: Respirations even and unlabored. No increased work of breathing. Talking in full sentences Skin: Warm, dry with normal turgor. Normal color. MS/ Extremity: Pulses equal, no cyanosis. Neurovascular intact. Full, normal range of motion. Neuro: Awake and alert, GCS 15, oriented to person, place, time, and situation. 14:22 Abdomen/GI: Inspection: abdomen appears normal, Bowel sounds: normal, in all quadrants, Palpation: soft, in all quadrants, mild abdominal tenderness, in the left lower quadrant, moderate abdominal tenderness, in the suprapubic area and right lower quadrant, 14:22 Back: CVA tenderness, that is moderate, is noted on the right, Vital Signs: 14:38 BP 97 / 69; Pulse 79; Resp 16; Temp 98.1; Pulse Ox 96% ; Weight 56.7 kg; Height 4 ft. db 11 in. ; 14:38 Body Mass Index 25.25 (56.70 kg, 149.86 cm) db MDM: 14:10 Medical Screening Exam initiated kb 14:23 Data reviewed: vital signs, nurses notes. kb 17:36 Differential diagnosis: uti, kidney stone, pyelonephritis, appendicitis. Counseling: I kb had a detailed discussion with the patient and/or guardian regarding the historical points, exam findings, and any diagnostic results supporting the discharge/admit diagnosis, lab results, radiology results, the need for outpatient follow up, a family practitioner, to return to the emergency department if symptoms worsen or persist or if there are any questions or concerns that arise at home. 08/03 14:18 Order name: CBC with Diff; Complete Time: 15:13 kb 08/03 14:18 Order name: CMP; Complete Time: 15:26 kb 08/03 14:18 Order name: UA Rfx Tariq Cult if indicated; Complete Time: 15:25 kb 08/03 15:22 Order name: Urine Culture EDMS 08/03 14:18 Order name: CT Abd/Pelvis - IV Contrast Only; Complete Time: 17:30 kb 08/03 14:18 Order name: IV Saline Lock; Complete Time: 15:33 kb 08/03 14:18 Order name: Labs collected and sent; Complete Time: 15:16 kb Administered Medications: 15:33 Drug: Ketorolac IVP 15 mg IVP once Route: IVP; Site: right antecubital; ss 17:38 Follow up: Response: No adverse reaction; Pain is decreased ss 15:33 Drug: NS 0.9% IV 1000 ml IV at 1000 ml once; to be given as a bolus over 60 minutes ss Route: IV; Rate: 1000 ml; Site: right antecubital; 17:38 Follow up: IV Status: Completed infusion; IV Intake: 1000ml ss 17:43 Drug: Amoxicillin-Clavulanate PO 875 mg PO once Route: PO; ss 17:57 Follow up: Response: No adverse reaction; Medication Administered at Departure ss 17:43 Drug: Flasher PO 5 mg-325 mg 1 tabs PO once Route: PO; ss 17:57 Follow up: Response: No adverse reaction; Medication Administered at Departure ss Disposition Summary: 08/03/24 17:37 Discharge Ordered Notes: Location: Home kb Condition: Stable kb Diagnosis - Acute cystitis kb Followup: kb - With: Emergency Department - When: As needed - Reason: Worsening of condition Followup: kb - With: Private Physician - When: 2 - 3 days - Reason: Recheck today's complaints, Continuance of care, Re-evaluation by your physician Discharge Instructions: - Discharge Summary Sheet kb - Urinary Tract Infection, Adult, [id number] kb Forms: - Medication Reconciliation Form kb - Antibiotic Education kb - Prescription Opioid Use kb - Patient Portal Instructions kb - Leadership Thank You Letter kb Prescriptions: - Augmentin 875-125 mg Oral Tablet - take 1 tablet ORAL route every 12 hours for 10 days; 20 tablet; Refills: 0, kb Product Selection Permitted Signatures: Dispatcher [employer] Inge Gonzalez, PATCHER-C PATCHER-Orquidea Pereira, RN RN ss Anali Lenz RN RN db
[2024-08-03] MEDS ORDERED: AMOX/K CLAV 875 MG TAB ONE (17:40)
[2024-08-03 18:18] VITALS: BP 97/69; TEMP 98.1; O2SAT 96
== END 2024-08-03 18:00 | disposition home or self-care (01) ==
LOC: ER 13:56
DX: N30.00 Acute cystitis without hematuria (principal); F17.210 Nicotine dependence, cigarettes, uncomplicated; Z85.038 Personal history of other malignant neoplasm of large intestine; Z85.048 Personal history of other malignant neoplasm of rectum, rectosigmoid junction, and anus
CPT/HCPCS: 96361; 87088; 85025; 81001; 87086; 36415; 80053; 74177; 96374; 99284; Q9967; J7030